=== PATIENT | male | born 1945 | race Caucasian/White ===

== ENCOUNTER 2017-04-17 18:50 | Inpatient (IN) | payer OTHER ==
[2017-04-16] MEDS: IV NORMAL SALINE 1000ML BAG 1,000 ML IV SCH (22:30)
[~2017-04-17] VITALS: Ht 182.9 cm; Wt 53.2 kg
[~2017-04-17 18:50] MED LIST: EPINEPHrine SYRINGE 1 MG/10 ML SYRINGE ONE
[2017-04-17] MEDS ORDERED: HEPARIN for IV BOLUS 10,000 UNIT/10 ML VIAL. ONE ×2 (19:03→20:16)
[2017-04-17] MEDS ORDERED: IV NORMAL SALINE 1000ML BAG 1,000 ML IV SCH (19:07)
[2017-04-17] MEDS ORDERED: ETOMIDATE 20 MG/10 ML VIAL. IV ONE ×2 (19:15→20:30)
[2017-04-17] MEDS ORDERED: MIDAZOLAM PREMIX 100 ML IV ONE (19:15)
[2017-04-17] MEDS ORDERED: HEPARIN for IV BOLUS 10,000 UNIT/10 ML VIAL. IV ONE ×2 (19:15→21:00)
[2017-04-17] MEDS ORDERED: SUCCINYLCHOLINE 200 MG/10 ML VIAL. ONE (19:16)
[2017-04-17 19:21] LABS: BASO # 0.1 x10^3/uL (0.0-0.2); BASO % 1 % (0-3); EOS % 3 % (0-3); HEMATOCRIT 49.3 % (39.0-53.0); HEMOGLOBIN 16.6 g/dL (13.0-17.5); LYMPH # 5.3 x10^3/uL (1.0-4.8); LYMPH % 33 % (24-48); MEAN CORPUSCULAR HEMOGLOBIN 36 pg (25-35); MEAN CORPUSCULAR HGB CONC 34 g/dL (31-37); MEAN CORPUSCULAR VOLUME 106 fL (79-100); MONO % 6 % (0-9); NEUT % 58 % (31-73); PLATELET COUNT 186 x10^3/uL (140-400); RED BLOOD COUNT 4.67 x10^6/uL (4.30-5.70); RED CELL DISTRIBUTION WIDTH 14.1 % (11.5-14.5); WHITE BLOOD COUNT 16.3 x10^3/uL (4.0-11.0)
[2017-04-17 19:22] LABS: BILIRUBIN,URINE NEGATIVE (NEG); GLUCOSE,URINE NEGATIVE (NEG); NITRITE,URINE NEGATIVE (NEG); PH,URINE 6.5; PROTEIN,URINE 100 mg/dL (NEG-TRACE); UROBILINOGEN,URINE 0.2 mg/dL (0.2 mg/dL)
[2017-04-17] MEDS ORDERED: HEPARIN for ARTERIAL LINE 1,500 ML ONE (19:24)
[2017-04-17] MEDS ORDERED: LIDOCAINE 2% 20 ML VIAL. ONE (19:24)
[2017-04-17] MEDS ORDERED: IODIXANOL 320 MG/ML 100 ML VIAL. ONE (19:24)
[2017-04-17] MEDS ORDERED: ONDANSETRON PF 4 MG/2 ML VIAL. IV PRN (19:30)
[2017-04-17] MEDS ORDERED: ACETAMINOPHEN 325 MG TABLET. PO PRN (19:30)
--- NOTE | 2017-04-17 19:30 | PHYS DOC ---
Adult General Chief Complaint Chief Complaint: CPR/FULL ARREST HPI HPI Patient is a 71 year old male who presents to the emergency department by EMS after experiencing cardiac arrest. Patient was found by family at home to be unresponsive after he had just come in to the house from outside complained that he was not feeling well. The patient was attended to by his . Patient was a witnessed arrest at home and EMS was called immediately. attempted CPR prior to EMS arrival. They arrived within approximately 5 minutes to find that the patient was unresponsive. The patient was found to be in V. fib upon their arrival. The patient was shocked out of V. fib at least twice prior to arrival. EMS was able to get spontaneous pulses back in route. Upon arrival the patient remains in a coma at this time. Per Drs. order prior to arrival, patient given 100 mg of lidocaine by IV. Patient has received no other medications prior to arrival. Patient unresponsive and unable to give any history. Patient has no known medical history and does not follow with a physician. Review of Systems Review of Systems Unable to obtain from patient Current Medications Current Medications Current Medications Medications (Trade) Dose Ordered Sig/Shonda Start Time Stop Time Status Last Admin Dose Admin Heparin Sodium (Porcine) (Heparin Sodium) 10,000 unit STK-MED ONCE 04/17/17 19:03 04/17/17 19:04 DC Sodium Chloride 1,000 ml @ 1,000 mls/hr Q1H 04/17/17 19:07 04/17/17 20:06 UNV Physical Exam Physical Exam Constitutional: Unresponsive, afebrile [] HENT: Normocephalic, atraumatic, bilateral external ears normal, oropharynx dry , no oral exudates, nose normal. [] Eyes: Pupils 5 mm and sluggish, conjunctiva normal, no discharge. [] Neck: Normal range of motion, no tenderness, supple, no stridor. [] Cardiovascular: Irregular rhythm, tachycardia, no murmur [] Lungs & Thorax: Assisted ventilations, lung sounds clear to auscultation [] Abdomen: Hypoactive bowel sounds, nondistended, no masses. [] Skin: Warm, dry, no erythema, no rash. [] Extremities: No obvious deformities, thready distal pulses, no cyanosis or clubbing. [] Neurologic: Unresponsive [] Current Patient Data Lab Values Laboratory Tests Test 04/17/17 18:59 White Blood Count 16.3 x10^3/uL (4.0-11.0) H Red Blood Count 4.67 x10^6/uL (4.30-5.70) Hemoglobin 16.6 g/dL (13.0-17.5) Hematocrit 49.3 % (39.0-53.0) Mean Corpuscular Volume 106 fL (79-100) H Mean Corpuscular Hemoglobin 36 pg (25-35) H Mean Corpuscular Hemoglobin Concent 34 g/dL (31-37) Red Cell Distribution Width 14.1 % (11.5-14.5) Platelet Count 186 x10^3/uL (140-400) Neutrophils (%) (Auto) 58 % (31-73) Lymphocytes (%) (Auto) 33 % (24-48) Monocytes (%) (Auto) 6 % (0-9) Eosinophils (%) (Auto) 3 % (0-3) Basophils (%) (Auto) 1 % (0-3) Neutrophils # (Auto) 9.4 x10^3uL (1.8-7.7) H Lymphocytes # (Auto) 5.3 x10^3/uL (1.0-4.8) H Monocytes # (Auto) 1.0 x10^3/uL (0.0-1.1) Eosinophils # (Auto) 0.5 x10^3/uL (0.0-0.7) Basophils # (Auto) 0.1 x10^3/uL (0.0-0.2) Sodium Level 136 mmol/L (136-145) Potassium Level 3.3 mmol/L (3.5-5.1) L Chloride Level 99 mmol/L (98-107) Carbon Dioxide Level 15 mmol/L (21-32) L Anion Gap 22 (6-14) H Blood Urea Nitrogen 9 mg/dL (8-26) Creatinine 0.7 mg/dL (0.7-1.3) Estimated GFR (Cockcroft-Gault) 111.8 Glucose Level 137 mg/dL (70-99) H Calcium Level 8.6 mg/dL (8.5-10.1) Magnesium Level 2.2 mg/dL (1.8-2.4) Total Bilirubin 0.6 mg/dL (0.2-1.0) Direct Bilirubin 0.2 mg/dL (0.0-0.2) Aspartate Amino Transferase (AST) 72 U/L (15-37) H Alanine Aminotransferase (ALT) 50 U/L (16-63) Alkaline Phosphatase 78 U/L (46-116) Troponin I Quantitative 0.176 ng/mL (0.000-0.055) Total Protein 6.9 g/dL (6.4-8.2) Albumin 3.4 g/dL (3.4-5.0) Lipase 112 U/L (73-393) Laboratory Tests 04/17/17 18:59 Laboratory Tests 04/17/17 18:59 EKG EKG EKG #1 at 185 interpreted by me: Heart rate 110 bpm, sinus tachycardia, normal axis, ST elevations in the inferior leads with reciprocal ST depressions in the lateral leads and in V2 through V4 consistent with acute STEMI EKG #2 at 190 interpreted by me: Heart rate 102, atrial fibrillation, worsening ST elevations in the inferior leads and worsening ST depressions in the lateral leads and in V2 through V4 consistent with acute STEMI [] Radiology/Procedures Radiology/Procedures AP chest x-ray 1 view interpreted by me: No pulmonary infiltrates or effusions, ET tube in satisfactory position above the radha, normal cardiac silhouette [] Course & Med Decision Making Course & Med Decision Making Pertinent Labs and Imaging studies reviewed. (See chart for details) Patient was activated as a code STEMI at 1854. Upon receiving the patient in the emergency department today, IV access was obtained and patient was intubated as outlined in the procedure note. Patient was started on a lidocaine drip and was given 4000 units of IV heparin. Patient started on Versed for continued sedation. At 1934 the patient was evaluated by Dr. Valdivia. He requested that the patient be started on dopamine to improve blood pressure and stated he would reevaluate once blood pressures improved. At 1945, the patient' s blood pressure had improved above [address] Valdivia ordered that patient be transferred emergently to cardiac catheterization lab for emergent PCAI. Critical care time excluding procedures: 45 minutes Dragon Disclaimer Dragon Disclaimer This electronic medical record was generated, in whole or in part, using a voice recognition dictation system. Intubation Procedure Intub Indication: Respiratory failure Consent: Unable to give consent due to emergent nature. Medications Used: see nursing note Procedure: The patient was placed in the appropriate position. Intubation was performed under direct laryngoscopy with placement of a 7.5 endotracheal tube. Secured at 22 cm at the lip. Initial confirmation of placement included bilateral breath sounds, tube fogging, adequate chest rise, adequate pulse oximetry reading. A chest x-ray to verify correct placement of the tube showed appropriate tube position. The patient tolerated the procedure well. Complications: none. Departure Departure Impression: Primary Impression: STEMI (ST elevation myocardial infarction) Disposition: 09 ADMITTED INPATIENT Admitting Physician: Dolores Alvarez Condition: CRITICAL Problem Qualifiers Primary Impression: STEMI (ST elevation myocardial infarction) Involved coronary artery: right coronary artery Qualified Codes: I21.11 - ST elevation (STEMI) myocardial infarction involving right coronary artery STANLEY GAYTAN MD Apr 17, 2017 19:30
[2017-04-17 19:36] LABS: CALCIUM 8.6 mg/dL (8.5-10.1); CREATININE 0.7 mg/dL (0.7-1.3); GFR 111.8; POTASSIUM 3.3 mmol/L (3.5-5.1)
[2017-04-17 19:38] LABS: BACTERIA,URINE 0 /HPF (0-FEW); SQUAMOUS EPITHELIAL CELL,UR OCC /LPF; WBC,URINE 0 /HPF (0-4)
[2017-04-17 19:39] LABS: SPERM,URINE PRESENT /HPF
[2017-04-17 19:41] LABS: ALBUMIN 3.4 g/dL (3.4-5.0); DIRECT BILIRUBIN 0.2 mg/dL (0.0-0.2); MAGNESIUM 2.2 mg/dL (1.8-2.4); TOTAL BILIRUBIN 0.6 mg/dL (0.2-1.0); TOTAL PROTEIN 6.9 g/dL (6.4-8.2)
[2017-04-17 19:50] LABS: CKMB MASS 1.5 ng/mL (0.0-3.6)
[2017-04-17] MEDS ORDERED: TIROFIBAN 12.5MG -0.9% NS 0 ML IV ONE (20:16)
[2017-04-17] MEDS ORDERED: LIDOCAINE 2GM/500ML PREMIX 500 ML IV ONE (20:30)
[2017-04-17] MEDS ORDERED: SUCCINYLCHOLINE 200 MG/10 ML VIAL. IV ONE (20:30)
--- NOTE | 2017-04-17 20:40 | PDOC1 ---
History and Physical Date of Admission Date of Admission 04/17/17 Identification/Chief Complaint Chief Complaint post code Problems: Source Source: Chart review History of Present Illness History of Present Illness 71yo M, who was sent by EMS post cardiac arrest. pt is currently intubated in ER, all history comes from ERP. as per ERP dr. Thacker, Patient was found by family at home to be unresponsive after he had just come in to the house from outside complained that he was not feeling well. The patient was attended to by his . Patient was a witnessed arrest at home and EMS was called immediately. attempted CPR prior to EMS arrival. They arrived within approximately 5 minutes to find that the patient was unresponsive. The patient was found to be in V. fib upon their arrival. The patient was shocked out of V. fib at least twice prior to arrival. EMS was able to get spontaneous pulses back in route. total code time was about 15mins as per ERP. Upon arrival the patient remains in a coma at this time. Per Drs. order prior to arrival, patient given 100 mg of lidocaine by IV. Patient has received no other medications prior to arrival. Patient unresponsive and unable to give any history. Patient has no known medical history and does not follow with a physician. Past Medical History Past Medical History unknown Past Surgical History Past Surgical History unknown Family History Family History: Family History Unknown Social History Smoke: No ALCOHOL: none Drugs: None Current Problem List Problem List Problems Medical Problems: (1) STEMI (ST elevation myocardial infarction) Status: Acute Current Medications Current Medications Current Medications Medications (Trade) Dose Ordered Sig/Shonda Start Time Stop Time Status Last Admin Dose Admin Acetaminophen (Tylenol) 650 mg PRN Q4HRS PRN 04/17/17 19:30 04/18/17 19:29 Dopamine HCl/ Dextrose 250 ml @ As Directed STK-MED ONCE 04/17/17 19:30 04/17/17 19:31 DC Etomidate (Amidate) 20 mg STK-MED ONCE 04/17/17 19:15 04/17/17 19:16 DC Heparin Sodium (Porcine) (Heparin Sodium) 10,000 unit STK-MED ONCE 04/17/17 20:16 04/17/17 20:17 DC Heparin Sodium/ Sodium Chloride 1,500 ml @ As Directed STK-MED ONCE 04/17/17 19:24 04/17/17 19:25 DC Iodixanol (Visipaque 320) 100 ml STK-MED ONCE 04/17/17 19:24 04/17/17 19:25 DC Lidocaine HCl 20 ml STK-MED ONCE 04/17/17 19:24 04/17/17 19:25 DC Midazolam HCl 100 ml @ As Directed STK-MED ONCE 04/17/17 19:15 04/17/17 19:16 DC Ondansetron HCl (Zofran) 4 mg PRN Q8HRS PRN 04/17/17 19:30 04/18/17 19:29 Sodium Chloride 1,000 ml @ 100 mls/hr Q10H 04/17/17 19:30 04/18/17 19:29 Succinylcholine Chloride (Anectine) 200 mg STK-MED ONCE 04/17/17 19:16 04/17/17 19:17 DC Tirofiban/Sodium Chloride 250 ml @ As Directed STK-MED ONCE 04/17/17 20:16 04/17/17 20:17 DC Allergies Allergies Allergies Coded Allergies Type Severity Reaction Last Updated Verified Unable to Assess 04/17/17 No ROS Review of System CONSTITUTIONAL: No fever or chills EYES: No recent changes SKIN: No rash or itching CARDIOVASCULAR: No chest pain, syncope, palpitations, or edema RESPIRATORY: No SOB or cough GASTROINTESTINAL: No nausea, vomiting or abdominal pain NEUROLOGICAL: No headaches or weakness ENDOCRINE: No cold or heat intolerance GENITOURINARY: No urgency or frequency of urination MUSCULOSKELETAL: No back pain or joint pain LYMPHATICS: No enlarged lymph nodes PSYCHIATRIC: No anxiety or depression Physical Exam Physical Exam GEN.: intubated HEENT: Head is normocephalic, atraumatic NECK: Supple. LUNGS: Clear to auscultation. HEART: RRR, S1, S2 present. Peripheral pulses intact ABDOMEN: Soft, nontender. Positive bowel sounds. EXTREMITIES: Without any cyanosis. NEUROLOGIC: Normal speech, normal tone PSYCHIATRIC: Normal affect, normal mood. SKIN: No ulcerations Vitals Vitals Vital Signs Date Time Temp Pulse Resp B/P (MAP) Pulse Ox O2 Delivery O2 Flow Rate FiO2 04/17/17 19:40 93 20 100/52 (68) 100 Ventilator 04/17/17 19:15 96.4 96.4 04/17/17 19:00 15.0 Labs Labs Laboratory Tests Test 04/17/17 18:59 04/17/17 19:14 White Blood Count 16.3 x10^3/uL (4.0-11.0) Red Blood Count 4.67 x10^6/uL (4.30-5.70) Hemoglobin 16.6 g/dL (13.0-17.5) Hematocrit 49.3 % (39.0-53.0) Mean Corpuscular Volume 106 fL (79-100) Mean Corpuscular Hemoglobin 36 pg (25-35) Mean Corpuscular Hemoglobin Concent 34 g/dL (31-37) Red Cell Distribution Width 14.1 % (11.5-14.5) Platelet Count 186 x10^3/uL (140-400) Neutrophils (%) (Auto) 58 % (31-73) Lymphocytes (%) (Auto) 33 % (24-48) Monocytes (%) (Auto) 6 % (0-9) Eosinophils (%) (Auto) 3 % (0-3) Basophils (%) (Auto) 1 % (0-3) Neutrophils # (Auto) 9.4 x10^3uL (1.8-7.7) Lymphocytes # (Auto) 5.3 x10^3/uL (1.0-4.8) Monocytes # (Auto) 1.0 x10^3/uL (0.0-1.1) Eosinophils # (Auto) 0.5 x10^3/uL (0.0-0.7) Basophils # (Auto) 0.1 x10^3/uL (0.0-0.2) Sodium Level 136 mmol/L (136-145) Potassium Level 3.3 mmol/L (3.5-5.1) Chloride Level 99 mmol/L (98-107) Carbon Dioxide Level 15 mmol/L (21-32) Anion Gap 22 (6-14) Blood Urea Nitrogen 9 mg/dL (8-26) Creatinine 0.7 mg/dL (0.7-1.3) Estimated GFR (Cockcroft-Gault) 111.8 Glucose Level 137 mg/dL (70-99) Calcium Level 8.6 mg/dL (8.5-10.1) Magnesium Level 2.2 mg/dL (1.8-2.4) Total Bilirubin 0.6 mg/dL (0.2-1.0) Direct Bilirubin 0.2 mg/dL (0.0-0.2) Aspartate Amino Transf (AST/SGOT) 72 U/L (15-37) Alanine Aminotransferase (ALT/SGPT) 50 U/L (16-63) Alkaline Phosphatase 78 U/L (46-116) Creatine Kinase 94 U/L (39-308) Creatine Kinase MB (Mass) 1.5 ng/mL (0.0-3.6) Creatine Kinase MB Relative Index 1.6 % (0-4) Troponin I Quantitative 0.176 ng/mL (0.000-0.055) IA-Wyp-J-Type Natriuretic Peptide 679 pg/mL (0-124) Total Protein 6.9 g/dL (6.4-8.2) Albumin 3.4 g/dL (3.4-5.0) Lipase 112 U/L (73-393) Urine Color Yellow Urine Clarity Clear Urine pH 6.5 Urine Specific [place] <=1.005 Urine Protein 100 mg/dL (NEG-TRACE) Urine Glucose (UA) Negative mg/dL (NEG) Urine Ketones (Stick) Negative mg/dL (NEG) Urine Blood Trace (NEG) Urine Nitrite Negative (NEG) Urine Bilirubin Negative (NEG) Urine Urobilinogen Dipstick 0.2 mg/dL (0.2 mg/dL) Urine Leukocyte Esterase Negative (NEG) Urine RBC 1-2 /HPF (0-2) Urine WBC 0 /HPF (0-4) Urine Squamous Epithelial Cells Occ /LPF Urine Bacteria 0 /HPF (0-FEW) Urine Sperm Present /HPF Laboratory Tests Test 04/17/17 18:59 04/17/17 19:14 White Blood Count 16.3 x10^3/uL (4.0-11.0) Red Blood Count 4.67 x10^6/uL (4.30-5.70) Hemoglobin 16.6 g/dL (13.0-17.5) Hematocrit 49.3 % (39.0-53.0) Mean Corpuscular Volume 106 fL (79-100) Mean Corpuscular Hemoglobin 36 pg (25-35) Mean Corpuscular Hemoglobin Concent 34 g/dL (31-37) Red Cell Distribution Width 14.1 % (11.5-14.5) Platelet Count 186 x10^3/uL (140-400) Neutrophils (%) (Auto) 58 % (31-73) Lymphocytes (%) (Auto) 33 % (24-48) Monocytes (%) (Auto) 6 % (0-9) Eosinophils (%) (Auto) 3 % (0-3) Basophils (%) (Auto) 1 % (0-3) Neutrophils # (Auto) 9.4 x10^3uL (1.8-7.7) Lymphocytes # (Auto) 5.3 x10^3/uL (1.0-4.8) Monocytes # (Auto) 1.0 x10^3/uL (0.0-1.1) Eosinophils # (Auto) 0.5 x10^3/uL (0.0-0.7) Basophils # (Auto) 0.1 x10^3/uL (0.0-0.2) Sodium Level 136 mmol/L (136-145) Potassium Level 3.3 mmol/L (3.5-5.1) Chloride Level 99 mmol/L (98-107) Carbon Dioxide Level 15 mmol/L (21-32) Anion Gap 22 (6-14) Blood Urea Nitrogen 9 mg/dL (8-26) Creatinine 0.7 mg/dL (0.7-1.3) Estimated GFR (Cockcroft-Gault) 111.8 Glucose Level 137 mg/dL (70-99) Calcium Level 8.6 mg/dL (8.5-10.1) Magnesium Level 2.2 mg/dL (1.8-2.4) Total Bilirubin 0.6 mg/dL (0.2-1.0) Direct Bilirubin 0.2 mg/dL (0.0-0.2) Aspartate Amino Transf (AST/SGOT) 72 U/L (15-37) Alanine Aminotransferase (ALT/SGPT) 50 U/L (16-63) Alkaline Phosphatase 78 U/L (46-116) Creatine Kinase 94 U/L (39-308) Creatine Kinase MB (Mass) 1.5 ng/mL (0.0-3.6) Creatine Kinase MB Relative Index 1.6 % (0-4) Troponin I Quantitative 0.176 ng/mL (0.000-0.055) FE-[id number]-J-Type Natriuretic Peptide 679 pg/mL (0-124) Total Protein 6.9 g/dL (6.4-8.2) Albumin 3.4 g/dL (3.4-5.0) Lipase 112 U/L (73-393) Urine Color Yellow Urine Clarity Clear Urine pH 6.5 Urine Specific [place] <=1.005 Urine Protein 100 mg/dL (NEG-TRACE) Urine Glucose (UA) Negative mg/dL (NEG) Urine Ketones (Stick) Negative mg/dL (NEG) Urine Blood Trace (NEG) Urine Nitrite Negative (NEG) Urine Bilirubin Negative (NEG) Urine Urobilinogen Dipstick 0.2 mg/dL (0.2 mg/dL) Urine Leukocyte Esterase Negative (NEG) Urine RBC 1-2 /HPF (0-2) Urine WBC 0 /HPF (0-4) Urine Squamous Epithelial Cells Occ /LPF Urine Bacteria 0 /HPF (0-FEW) Urine Sperm Present /HPF VTE Prophylaxis Ordered VTE Prophylaxis Devices: Yes VTE Pharmacological Prophylaxi: Yes Assessment/Plan Assessment/Plan cardiac arrest, vifb, 2/2 acute [place] likely, with Vfib ACUTE resp failure with cardiac arrest hypokalemia shock ,cardiogenic likely leukocytosis, reactive AMS, from cardiac arrest plan: ICU care hypothermia protocol intubated, sedated, pulm consult, CXR daily keep MAP >65 , need pressors zavaleta, monitor urine output >0.5cc/kg npo ivf on lidocaine drip now SSI q6h need to get PMH AND home meds card fu , may need cath labs tmr dvt , gi ppx ROYER CAT MD Apr 17, 2017 20:40
[2017-04-17] MEDS ORDERED: HEPARIN 25,000UTS/500ML PREMIX 500 ML IV ONE (20:43)
[2017-04-17] MEDS: HEPARIN 25,000UTS/500ML PREMIX 500 ML IV PRN (20:50)
[2017-04-17] MEDS ORDERED: LIDOCAINE 2% 20 ML VIAL. IJ ONE (21:00)
[2017-04-17] MEDS ORDERED: IODIXANOL 320 MG/ML 100 ML VIAL. IART ONE (21:00)
[2017-04-17] MEDS ORDERED: MIDAZOLAM HCL/PF 5 MG/5 ML VIAL. IV ONE (21:00)
[2017-04-17 21:10] VITALS: BP 134/75
[2017-04-17 21:25] VITALS: BP 134/75
[2017-04-17] MEDS ORDERED: MINERAL OIL/PETROLATUM,WHITE OPHTH OINT 3.5GM TUBE. OU PRN (21:30)
[2017-04-17] MEDS ORDERED: fentaNYL PF VIAL 100 MCG/2 ML VIAL IV PRN (21:30)
[2017-04-17] MEDS ORDERED: HEPARIN for IV BOLUS 10,000 UNIT/10 ML VIAL. IV PRN (21:30)
[2017-04-17] MEDS ORDERED: 0.9 % SODIUM CHLORIDE 10 ML DISP.SYRIN. IV PRN (21:30)
[2017-04-17] MEDS ORDERED: HEPARIN 25,000UTS/500ML PREMIX 500 ML IV PRN (21:30)
--- NOTE | 2017-04-17 21:30 | PDOC2 ---
CONSULT Date of Consult Date of Consult DATE: 04/17/17 TIME: 21:15 Reason for Consult Reason for Consult: Cardiac arrest Referring Physician Referring Physician: Dr. Alvarez Identification/Chief Complaint Chief Complaint Loss of consciousness Problems: Source Source: Caregiver History of Present Illness Reason for Visit: The patient is a 71 year old male who collapsed at home after working outside today. His family could not find a pulse and started CPR and called paramedics. When they arrived they found the patient to be in VF and he was defibrillated. Lidocaine was started and he was transported to the ER. He was intubated in the ER and EKG changes suggested an inferior STEMI. He was treated with heparin and sedation. The patient reportedly has no history of CAD , CHF or arrhythmias. On lidocaine he has remained in sinus rhythm. Systolic BP is now 80 mmHG. Past Medical History Cardiovascular: HTN Family History Family History: Hypertension, Family History Unknown Social History No ALCOHOL: none Drugs: None Current Problem List Problem List Problems Medical Problems: (1) STEMI (ST elevation myocardial infarction) Status: Acute Current Medications Current Medications Current Medications Heparin Sodium (Porcine) (Heparin Sodium) 10,000 unit STK-MED ONCE .ROUTE ; Start 04/17/17 at 19:03; Stop 04/17/17 at 19:04; Status DC Heparin Sodium (Porcine) (Heparin Sodium) 4,000 unit 1X ONCE IV Last administered on 04/17/17 19:05; Start 04/17/17 at 19:15; Stop 04/17/17 at 19:49; Status DC Sodium Chloride 1,000 ml @ 1,000 mls/hr Q1H IV Last administered on 04/17/17 19:07; Start 04/17/17 at 19:07; Stop 04/17/17 at 20:06; Status DC Midazolam HCl 100 ml @ As Directed STK-MED ONCE IV ; Start 04/17/17 at 19:15; Stop 04/17/17 at 19:16; Status DC Etomidate (Amidate) 20 mg STK-MED ONCE IV ; Start 04/17/17 at 19:15; Stop at 19:16; Status DC Succinylcholine Chloride (Anectine) 200 mg STK-MED ONCE .ROUTE ; Start 04/17/17 at 19:16; Stop 04/17/17 at 19:17; Status DC Heparin Sodium/ Sodium Chloride 1,500 ml @ As Directed STK-MED ONCE .ROUTE ; Start 04/17/17 at 19:24; Stop 04/17/17 at 19:25; Status DC Lidocaine HCl 20 ml STK-MED ONCE .ROUTE ; Start 04/17/17 at 19:24; Stop 04/17/17 at 19:25; Status DC Iodixanol (Visipaque 320) 100 ml STK-MED ONCE .ROUTE ; Start 04/17/17 at 19:24; Stop 04/17/17 at 19:25; Status DC Dopamine HCl/ Dextrose 250 ml @ 0 mls/hr CONT PRN IV SEE I/O RECORD Last administered on 04/17/17t 19:32; Start 04/17/17 at 19:30; Stop 04/17/17 at 20:54; Status DC Dopamine HCl/ Dextrose 250 ml @ As Directed STK-MED ONCE IV ; Start 04/17/17 at 19:30; Stop 04/17/17 at 19:31; Status DC Ondansetron HCl (Zofran) 4 mg PRN Q8HRS PRN IV NAUSEA/VOMITING; Start 04/17/17 at 19:30; Stop 04/18/17 at 19:29 Sodium Chloride 1,000 ml @ 100 mls/hr Q10H IV ; Start 04/17/17 at 19:30; Stop at 19:29 Acetaminophen (Tylenol) 650 mg PRN Q4HRS PRN PO FEVER; Start 04/17/17 at 19:30; Stop 04/18/17 at 19:29 Heparin Sodium (Porcine) (Heparin Sodium) 10,000 unit STK-MED ONCE .ROUTE ; Start 04/17/17 at 20:16; Stop 04/17/17 at 20:17; Status DC Tirofiban/Sodium Chloride 0 ml @ As Directed STK-MED ONCE IV ; Start 04/17/17 at 20:16; Stop 04/17/17 at 20:17; Status DC Famotidine (Pepcid) 20 mg QHS IVP ; Start 04/17/17 at 21:00 Etomidate (Amidate) 20 mg 1X ONCE IV Last administered on 04/17/17t 19:00; Start 04/17/17 at 20:30; Stop 04/17/17 at 21:05; Status DC Succinylcholine Chloride (Anectine) 100 mg 1X ONCE IV Last administered on 04/17 19:00; Start 04/17/17 at 20:30; Stop 04/17/17 at 21:07; Status DC Lidocaine HCl/ Dextrose 500 ml @ 0 mls/hr 1X ONCE IV Last administered on 18:55; Start 04/17/17 at 20:30; Stop 04/17/17 at 21:08; Status DC Dopamine HCl/ Dextrose 250 ml @ 0 mls/hr CONT PRN IV SEE I/O RECORD; Start 04/17 at 20:30 Heparin Sodium/ Dextrose 500 ml @ As Directed STK-MED ONCE IV ; Start 04/17/17 at 20:43; Stop 04/17/17 at 20:44; Status DC Heparin Sodium/ Dextrose 500 ml @ 0 mls/hr CONT PRN IV SEE I/O RECORD Last administered on 04/17/17 20:50; Start 04/17/17 at 20:45 Midazolam HCl (Versed) 5 mg 1X ONCE IV Last administered on 04/17/17 19:17; Start 04/17/17 at 21:00; Stop 04/17/17 at 21:07; Status DC Heparin Sodium (Porcine) (Heparin Sodium) 2,000 unit 1X ONCE IV Last administered on 04/17/17 20:59; Start 04/17/17 at 21:00; Stop 04/17/17 at 21:06; Status DC Iodixanol (Visipaque 320) 134 ml 1X ONCE IART Last administered on 04/17/17 20 :58; Start 04/17/17 at 21:00; Stop 04/17/17 at 21:04; Status DC Lidocaine HCl 20 ml 1X ONCE IJ Last administered on 04/17/17 20:58; Start 04/17 at 21:00; Stop 04/17/17 at 21:08; Status DC Fentanyl Citrate 30 ml @ As Directed STK-MED ONCE IV ; Start 04/17/17 at 21:09; Stop 04/17/17 at 21:10; Status DC Allergies Allergies: Coded Allergies: Penicillins (Verified Allergy, Intermediate, 04/17/17) ROS Review of System Not available. Physical Exam General: Other (sedated on a ventilator.) Lungs: Other (mildly decreased breath sounds) Heart: Regular rate Abdomen: Normal bowel sounds Vitals VITALS Vital Signs Date Time Temp Pulse Resp B/P (MAP) Pulse Ox O2 Delivery O2 Flow Rate FiO2 04/17/17 19:40 93 20 100/52 (68) 100 Ventilator 04/17/17 19:15 96.4 96.4 04/17/17 19:04 15.0 Labs Labs Laboratory Tests Test 04/17/17 18:59 04/17/17 19:14 White Blood Count 16.3 x10^3/uL (4.0-11.0) Red Blood Count 4.67 x10^6/uL (4.30-5.70) Hemoglobin 16.6 g/dL (13.0-17.5) Hematocrit 49.3 % (39.0-53.0) Mean Corpuscular Volume 106 fL (79-100) Mean Corpuscular Hemoglobin 36 pg (25-35) Mean Corpuscular Hemoglobin Concent 34 g/dL (31-37) Red Cell Distribution Width 14.1 % (11.5-14.5) Platelet Count 186 x10^3/uL (140-400) Neutrophils (%) (Auto) 58 % (31-73) Lymphocytes (%) (Auto) 33 % (24-48) Monocytes (%) (Auto) 6 % (0-9) Eosinophils (%) (Auto) 3 % (0-3) Basophils (%) (Auto) 1 % (0-3) Neutrophils # (Auto) 9.4 x10^3uL (1.8-7.7) Lymphocytes # (Auto) 5.3 x10^3/uL (1.0-4.8) Monocytes # (Auto) 1.0 x10^3/uL (0.0-1.1) Eosinophils # (Auto) 0.5 x10^3/uL (0.0-0.7) Basophils # (Auto) 0.1 x10^3/uL (0.0-0.2) Sodium Level 136 mmol/L (136-145) Potassium Level 3.3 mmol/L (3.5-5.1) Chloride Level 99 mmol/L (98-107) Carbon Dioxide Level 15 mmol/L (21-32) Anion Gap 22 (6-14) Blood Urea Nitrogen 9 mg/dL (8-26) Creatinine 0.7 mg/dL (0.7-1.3) Estimated GFR (Cockcroft-Gault) 111.8 Glucose Level 137 mg/dL (70-99) Calcium Level 8.6 mg/dL (8.5-10.1) Magnesium Level 2.2 mg/dL (1.8-2.4) Total Bilirubin 0.6 mg/dL (0.2-1.0) Direct Bilirubin 0.2 mg/dL (0.0-0.2) Aspartate Amino Transf (AST/SGOT) 72 U/L (15-37) Alanine Aminotransferase (ALT/SGPT) 50 U/L (16-63) Alkaline Phosphatase 78 U/L (46-116) Creatine Kinase 94 U/L (39-308) Creatine Kinase MB (Mass) 1.5 ng/mL (0.0-3.6) Creatine Kinase MB Relative Index 1.6 % (0-4) Troponin I Quantitative 0.176 ng/mL (0.000-0.055) KM-Nxp-U-Type Natriuretic Peptide 679 pg/mL (0-124) Total Protein 6.9 g/dL (6.4-8.2) Albumin 3.4 g/dL (3.4-5.0) Lipase 112 U/L (73-393) Urine Color Yellow Urine Clarity Clear Urine pH 6.5 Urine Specific [place] <=1.005 Urine Protein 100 mg/dL (NEG-TRACE) Urine Glucose (UA) Negative mg/dL (NEG) Urine Ketones (Stick) Negative mg/dL (NEG) Urine Blood Trace (NEG) Urine Nitrite Negative (NEG) Urine Bilirubin Negative (NEG) Urine Urobilinogen Dipstick 0.2 mg/dL (0.2 mg/dL) Urine Leukocyte Esterase Negative (NEG) Urine RBC 1-2 /HPF (0-2) Urine WBC 0 /HPF (0-4) Urine Squamous Epithelial Cells Occ /LPF Urine Bacteria 0 /HPF (0-FEW) Urine Sperm Present /HPF Laboratory Tests Test 04/17/17 18:59 04/17/17 19:14 White Blood Count 16.3 x10^3/uL (4.0-11.0) Red Blood Count 4.67 x10^6/uL (4.30-5.70) Hemoglobin 16.6 g/dL (13.0-17.5) Hematocrit 49.3 % (39.0-53.0) Mean Corpuscular Volume 106 fL (79-100) Mean Corpuscular Hemoglobin 36 pg (25-35) Mean Corpuscular Hemoglobin Concent 34 g/dL (31-37) Red Cell Distribution Width 14.1 % (11.5-14.5) Platelet Count 186 x10^3/uL (140-400) Neutrophils (%) (Auto) 58 % (31-73) Lymphocytes (%) (Auto) 33 % (24-48) Monocytes (%) (Auto) 6 % (0-9) Eosinophils (%) (Auto) 3 % (0-3) Basophils (%) (Auto) 1 % (0-3) Neutrophils # (Auto) 9.4 x10^3uL (1.8-7.7) Lymphocytes # (Auto) 5.3 x10^3/uL (1.0-4.8) Monocytes # (Auto) 1.0 x10^3/uL (0.0-1.1) Eosinophils # (Auto) 0.5 x10^3/uL (0.0-0.7) Basophils # (Auto) 0.1 x10^3/uL (0.0-0.2) Sodium Level 136 mmol/L (136-145) Potassium Level 3.3 mmol/L (3.5-5.1) Chloride Level 99 mmol/L (98-107) Carbon Dioxide Level 15 mmol/L (21-32) Anion Gap 22 (6-14) Blood Urea Nitrogen 9 mg/dL (8-26) Creatinine 0.7 mg/dL (0.7-1.3) Estimated GFR (Cockcroft-Gault) 111.8 Glucose Level 137 mg/dL (70-99) Calcium Level 8.6 mg/dL (8.5-10.1) Magnesium Level 2.2 mg/dL (1.8-2.4) Total Bilirubin 0.6 mg/dL (0.2-1.0) Direct Bilirubin 0.2 mg/dL (0.0-0.2) Aspartate Amino Transf (AST/SGOT) 72 U/L (15-37) Alanine Aminotransferase (ALT/SGPT) 50 U/L (16-63) Alkaline Phosphatase 78 U/L (46-116) Creatine Kinase 94 U/L (39-308) Creatine Kinase MB (Mass) 1.5 ng/mL (0.0-3.6) Creatine Kinase MB Relative Index 1.6 % (0-4) Troponin I Quantitative 0.176 ng/mL (0.000-0.055) OV-Npz-F-Type Natriuretic Peptide 679 pg/mL (0-124) Total Protein 6.9 g/dL (6.4-8.2) Albumin 3.4 g/dL (3.4-5.0) Lipase 112 U/L (73-393) Urine Color Yellow Urine Clarity Clear Urine pH 6.5 Urine Specific [place] <=1.005 Urine Protein 100 mg/dL (NEG-TRACE) Urine Glucose (UA) Negative mg/dL (NEG) Urine Ketones (Stick) Negative mg/dL (NEG) Urine Blood Trace (NEG) Urine Nitrite Negative (NEG) Urine Bilirubin Negative (NEG) Urine Urobilinogen Dipstick 0.2 mg/dL (0.2 mg/dL) Urine Leukocyte Esterase Negative (NEG) Urine RBC 1-2 /HPF (0-2) Urine WBC 0 /HPF (0-4) Urine Squamous Epithelial Cells Occ /LPF Urine Bacteria 0 /HPF (0-FEW) Urine Sperm Present /HPF Assessment/Plan Assessment/Plan 1. Cardiac arrest. VF. Defibrillated in the field after approximately 10 minutes of CPR. On hypothermia protocol. Rhythm stable on lidocaine. 2. Respiratory failure secondary to #1. Intubated and on a ventilator. Pulmonary consult for management. 3. Probable STEMI. Inferior ST changes. Post VT code. BP improved with dopamine and now is approximately 100 mmHG. Believe cath is indicated. Risks and benefits discussed with his family and they have agreed to cath and possible revascularization. Will bring emergently to the lab. 4. Reported 60 lbs. weight loss over the past year. Will obtain old records. Thank you for allowing us to participate in the care of your patient. LOVE MARIE MD Apr 17, 2017 21:30
--- NOTE | 2017-04-17 21:35 | ACF ---
Admission Forms Criteria MYOCARDIAL INFARCTION Clinical Indications for Admission to Inpatient Care (Place 'X' for any and all applicable criteria): Admission is indicated for 1 or more of the following (1)(2)(3)(4): [X]I. Acute [place] [ ]II. Contraindications and/or Inappropriate clinical situations for Observational Care in patients with Myocardial Infarction, when ANY ONE of the following is required: [ ]a) Patient with High risk of cardiac embolism (e.g, patients with previous cardiac embolism, LVEF < 40%, age >75 and patients with prosthetic valve) 18 [ ]b) Patient with Moderate risk including DM patient, CAD and patient aged 65-75 18 [ ]c) Patient with any change in cardiac biomarker especially troponin should be managed as high risk in an inpatient setting 19 [ ]d) Physician judgement irrespective of ECG and other diagnostic findings 20 [ ]III.General contraindications and/or Inappropriate clinical situations for Observational Care in patients with Myocardial Infarction, when ANY ONE of the following is required: [ ]a) Prediction of prolongation of LOS based on ANY ONE of the following may be considered as a contraindication for observational care 2, 3, 4, 5, 6, 7, 8, 9, 10, 11 [ ]i) Age > 65 yrs. [ ]ii) Patient arriving by ambulance [ ]iii) Patient with high acuity [ ]iv) Patient requiring vital sign monitoring [ ]v) Patient on IV medication [ ]b) Systolic blood pressures greater than or equal to 180mmHg 3,12 [ ]c) Patient with altered mental status including delirium and other alteration of consciousness, (3) [ ]d) Patient whose discharge disposition will be to a shelter home or rehabilitation home should not be managed in Emergency Department Observation Unit. CMS rule requires 3 days hospital stay before such placement. 3,13 [ ]e) Patient with failure to thrive due to broad array of etiologies 3 ,16,17 [ ]f) Inability to ambulate 3,14 Extended stay beyond goal length of stay may be needed for (1)(18)(20)(24)(25): [ ]a) Hemodynamic instability, persisting symptoms after intensive medical management, or recurring severe, prolonged symptoms [ ]b) Intravascular procedural complications such as acute vessel closure, stent thrombosis, stent malposition, or vessel dissection (26)(27)(28) [ ]c) Extravascular procedural complications such as retroperitoneal hematoma , pericardial effusion, or cardiac tamponade [ ]d) Entry site complications causing bleeding, hematoma or distal ischemia and requiring ongoing monitoring, surgical repair or surgical thrombectomy. Dangerous arrhythmia [ ]e) Complicated percutaneous coronary intervention (e.g., unsuccessful percutaneous coronary intervention or percutaneous coronary intervention of non- [place] vessel) [ ]f) Urgent or emergent surgery for complications of [place] (e.g., ventricular rupture, valvular insufficiency) [ ]g) Surgical revascularization via coronary artery bypass graft [ ]h) Heart failure (e.g., pulmonary edema) [ ]i) Unstable pulmonary comorbidities, including COPD or pneumonia (31) [ ]j) Acute renal failure The original [employer] content created by [employer] has been revised. The portions of the content which have been revised are identified through the use of italic text or in bold, and [facility] has neither reviewed nor approved the modified material. All other unmodified content is copyright [facility] [employer] Please see references footnoted in the original [facility] edition 2016 Admission Criteria Met?: Yes STEVE CHU Apr 17, 2017 21:35
--- NOTE | 2017-04-17 21:36 | PDOC4 ---
Operative Note Operative Note Brief cath note. Initial AO pressure 98/58, post IABP Ao 136/78 Coronaries Left main. 45-50% lesion. LAD. Mid 95% lesion. Distal collaterals to the RCA. LCX. Proximal 80% lesion, OM1 85% lesion. RCA. Proximal chronic occlusion with distal collaterals from the RCA and LAD. No LV gram. AO root and abd. aorta without significant lesions. IABP placed from right femoral access without complications. Conclusions. 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 IABP placed with significant improvement in BP. Will consider for CABG. The patient remains on a ventilator. Discussed with the patients family. Full report to follow. LOVE MARIE MD Apr 17, 2017 21:36
[2017-04-17 21:40] VITALS: BP_SYST 118; BP_SYST 134; BP_DIAS 74; BP_DIAS 75
[2017-04-17] MEDS: IV NORMAL SALINE 1000ML BAG 1,000 ML IV SCH ×3 (21:45→23:30)
[2017-04-17] MEDS: MEPERIDINE PF 25 MG/ML VIAL. IV PRN (21:53)
[2017-04-17 22:00] VITALS: BP_SYST 109; BP_SYST 134; BP_DIAS 69; BP_DIAS 75
[2017-04-17] MEDS ORDERED: MIDAZOLAM PREMIX 100 ML IV PRN (22:00)
[2017-04-17] MEDS: FAMOTIDINE 20 MG/2 ML VIAL IVP SCH (22:30)
[2017-04-17 22:52] LABS: HEMATOCRIT 50.9 % (39.0-53.0); HEMOGLOBIN 17.3 g/dL (13.0-17.5); RED BLOOD COUNT 4.84 x10^6/uL (4.30-5.70); RED CELL DISTRIBUTION WIDTH 14.7 % (11.5-14.5); WHITE BLOOD COUNT 21.3 x10^3/uL (4.0-11.0)
[2017-04-17 23:00] VITALS: BP_SYST 121; BP_SYST 134; BP_DIAS 75; BP_DIAS 76
[2017-04-17 23:02] LABS: INR 1.3 (0.8-1.1); PROTHROMBIN TIME PATIENT 15.2 SEC (11.7-14.0)
[2017-04-17 23:11] LABS: CORRECTED PCO2 ABG 48 mmHg; CORRECTED PH ABG 7.18; CORRECTED PO2 ABG 137 mmHg; HCO3 ABG 19 mmol/L (21-28); PCO2 ABG 57 mmHg (35-46); PO2 ABG 157 mmHg (65-108); SAT O2 ABG 98 % (92-99)
[2017-04-17 23:22] LABS: PH ABG 7.13 (7.35-7.45)
[2017-04-17 23:25] LABS: PARTIAL THROMBOPLASTIN TIME > 150 SEC (24-38)
[2017-04-18] VITALS (26 sets, daily range): BP systolic 111–158; BP diastolic 41–79
[2017-04-18] MEDS ORDERED: SODIUM BICARB ADULT 8.4% 50 MEQ/50 ML DISP.SYRIN. IV ONE
--- NOTE | 2017-04-18 01:11 | EKG ---
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
[2017-04-18] MEDS: VECURONIUM BOLUS 10 MG VIAL. IV PRN ×3 (02:00→16:00)
[2017-04-18] MEDS: IV NORMAL SALINE 1000ML BAG 1,000 ML IV SCH ×4 (02:05→12:35)
[2017-04-18] MEDS: MEPERIDINE PF 25 MG/ML VIAL. IV PRN (04:17)
[2017-04-18 05:31] LABS: BASO # 0.1 x10^3/uL (0.0-0.2); BASO % 0 % (0-3); EOS % 0 % (0-3); HEMATOCRIT 51.6 % (39.0-53.0); HEMOGLOBIN 17.3 g/dL (13.0-17.5); LYMPH # 1.5 x10^3/uL (1.0-4.8); LYMPH % 7 % (24-48); MEAN CORPUSCULAR HEMOGLOBIN 35 pg (25-35); MEAN CORPUSCULAR HGB CONC 34 g/dL (31-37); MEAN CORPUSCULAR VOLUME 104 fL (79-100); MONO % 6 % (0-9); NEUT % 86 % (31-73); PLATELET COUNT 169 x10^3/uL (140-400); RED BLOOD COUNT 4.98 x10^6/uL (4.30-5.70); RED CELL DISTRIBUTION WIDTH 13.9 % (11.5-14.5); WHITE BLOOD COUNT 20.9 x10^3/uL (4.0-11.0)
[2017-04-18 05:42] LABS: INR 1.2 (0.8-1.1); PROTHROMBIN TIME PATIENT 14.3 SEC (11.7-14.0)
[2017-04-18] MEDS ORDERED: No home meds (05:43)
[2017-04-18 05:45] LABS: CALCIUM 6.8 mg/dL (8.5-10.1); CREATININE 0.4 mg/dL (0.7-1.3); GFR 213.3; MAGNESIUM 1.8 mg/dL (1.8-2.4); PHOSPHORUS 2.5 mg/dL (2.6-4.7); POTASSIUM 3.3 mmol/L (3.5-5.1)
[2017-04-18 05:58] LABS: PARTIAL THROMBOPLASTIN TIME > 150 SEC (24-38)
[2017-04-18] MEDS: ACETAMINOPHEN 650 MG/20.3 ML SOLUTION. NG SCH ×4 (06:00→18:00)
--- NOTE | 2017-04-18 06:38 | EKG ---
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
--- NOTE | 2017-04-18 06:40 | EKG ---
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
[2017-04-18] MEDS: PROPOFOL 100 ML IV PRN ×2 (07:51→17:08)
[2017-04-18 07:52] LABS: BILIRUBIN,URINE NEGATIVE (NEG); GLUCOSE,URINE NEGATIVE (NEG); NITRITE,URINE NEGATIVE (NEG); PH,URINE 7.5; PROTEIN,URINE NEGATIVE (NEG-TRACE); UROBILINOGEN,URINE 0.2 mg/dL (0.2 mg/dL)
--- NOTE | 2017-04-18 07:59 | RAD ---
Indication respiratory failure. A single view of the chest was obtained. No prior imaging is available. The heart and pulmonary vessels appear normal. The lungs are clear of acute infiltrates. Significant pleural fluid is not seen. There is no pneumothorax. A nasogastric tube has its tip in the mid body of the stomach. An endotracheal tube is appropriately positioned above the ardha. IMPRESSION no acute or focal process seen in the chest. Appropriately positioned nasogastric and endotracheal tubes
[2017-04-18] MEDS ORDERED: AMIODARONE 900 MG in IV DEXTROSE 5% 500 ML IV ONE (08:00)
[2017-04-18 08:16] LABS: WBC,URINE 0 /HPF (0-4)
[2017-04-18 08:17] LABS: BACTERIA,URINE 0 /HPF (0-FEW)
[2017-04-18 08:31] LABS: BODY TEMP ABG 86.2 DEG; CORRECTED PCO2 ABG 18 mmHg; CORRECTED PH ABG 7.61; CORRECTED PO2 ABG 364 mmHg; HCO3 ABG 18 mmol/L (21-28); PCO2 ABG 24 mmHg (35-46); PH ABG 7.51 (7.35-7.45); PO2 ABG 401 mmHg (65-108); SAT O2 ABG 99 % (92-99)
[2017-04-18 08:32] LABS: FIO2 ABG 100
[2017-04-18 08:32] LABS: DIRECT BILIRUBIN 0.2 mg/dL (0.0-0.2); TOTAL BILIRUBIN 0.7 mg/dL (0.2-1.0); TOTAL PROTEIN 6.5 g/dL (6.4-8.2)
[2017-04-18 08:33] LABS: CALCIUM 7.4 mg/dL (8.5-10.1); CREATININE 0.4 mg/dL (0.7-1.3); GFR 213.3; MAGNESIUM 1.8 mg/dL (1.8-2.4); PHOSPHORUS 1.7 mg/dL (2.6-4.7)
[2017-04-18 08:39] LABS: POTASSIUM 2.8 mmol/L (3.5-5.1)
--- NOTE | 2017-04-18 08:43 | RAD ---
Indication respiratory failure. A single view of the chest was obtained and is compared to a study one day earlier. Endotracheal tube is appropriately positioned above the radha. Nasogastric tube is noted. A sidehole is in the area of the GE junction. Advancement of the tube should be considered. Intra-arterial balloon pump is additionally noted. The heart and pulmonary vessels are within normal limits. There is volume loss, most compatible with atelectasis, in the left lower lobe. There may be a tiny left pleural effusion. IMPRESSION: Appropriately positioned endotracheal tube. Advancement of the nasogastric tube should be considered.. Balloon pump noted. Volume loss, probably reflecting atelectasis, in the left lower lobe. Suspect small left pleural effusion
[2017-04-18] MEDS ORDERED: PNEUMOCOCCAL VAX SCREEN BY RX. MC PRN (08:45)
[2017-04-18] MEDS: ASPIRIN 300 MG SUPP.RECT PR SCH (09:00)
--- NOTE | 2017-04-18 09:22 | CARD ---
APPROVED REPORT EXAM: Two-dimensional and M-mode echocardiogram with Doppler and color Doppler. Other Information Quality : Good INDICATION Post Cardiac Arrest 2D DIMENSIONS RVDd2.9 (2.9-3.5cm)Left Atrium(2D)3.2 (1.6-4.0cm) IVSd1.1 (0.7-1.1cm)Aortic Root(2D)3.2 (2.0-3.7cm) LVDd4.4 (3.9-5.9cm)LVOT Diameter2.2 (1.8-2.4cm) PWd1.1 (0.7-1.1cm)LVDs3.9 (2.5-4.0cm) FS (%) 10.7 %SV20.7 ml LVEF(%)23.4 (>50%) Aortic Valve AoV Peak Gerard.127.0cm/sAoV VTI18.9cm AO Peak GR.6.5mmHgLVOT VTI 16.64cm AO Mean GR.2mmHgAVA (VTI)3.20cm2 Mitral Valve MV E Ngqjphfk46.3cm/sMV DECEL [id number] MV A Aygtspsq22.8cm/sE/A Ratio2.7 TDI Lateral E' P. V6.31cm/sMedial E' P. V4.38cm/s E/Lateral E'12.4E/Medial E'17.9 Tricuspid Valve TR P. [id number]/sRAP [id number] TR Peak Gr.[id number] LEFT VENTRICLE The left ventricle is normal size. There is normal left ventricular wall thickness. The left ventricu lar systolic function is normal and the ejection fraction is within normal range. EF 50-55% The basal to mid inferior wall is akinetic. Otherwise, grossly normal wall motion. Tissue Doppler imaging reve als moderate left ventricular diastolic dysfunction. RIGHT VENTRICLE The right ventricle is normal size. The right ventricular systolic function is normal. ATRIA The left atrium size is normal. The right atrium size is normal. The interatrial septum is intact wit h no evidence for an atrial septal defect or patent foramen ovale as noted on 2-D or Doppler imaging. AORTIC VALVE The aortic valve is calcified and not well visualized. Doppler and Color Flow revealed no significant aortic regurgitation. There is no significant aortic valvular stenosis. MITRAL VALVE The mitral valve is normal in structure and function. There is no evidence of mitral valve prolapse. There is no mitral valve stenosis. Doppler and Color-flow revealed trace mitral regurgitation. TRICUSPID VALVE The tricuspid valve is normal in structure and function. Doppler and Color Flow revealed trace tricus pid regurgitation. There is mild pulmonary hypertension. The PA pressure was estimated at 37 mmHg. Th ere is no tricuspid valve stenosis. PULMONIC VALVE Doppler and Color Flow revealed no pulmonic valvular regurgitation. There is no pulmonic valvular citlali nosis. GREAT VESSELS The aortic root is normal in size. The ascending aorta is normal in size. The IVC is normal in size a nd collapses >50% with inspiration. PERICARDIAL EFFUSION There is no evidence of significant pericardial effusion. Critical Notification Critical Value: No <Conclusion> The left ventricular systolic function is normal and the ejection fraction is within normal range. EF 50-55% The basal to mid inferior wall is akinetic. Otherwise, grossly normal wall motion. The aortic valve is calcified and not well visualized. Doppler and Color Flow revealed trace tricuspid regurgitation. There is mild pulmonary hypertension. The PA pressure was estimated at 37 mmHg.
[2017-04-18] MEDS ORDERED: AMIODARONE 900 MG in IV DEXTROSE 5% 500 ML IV PRN (09:45)
[2017-04-18] MEDS ORDERED: POTASSIUM CHLORIDE 20MEQ 50 ML IV ONE (10:30)
[2017-04-18 10:50] LABS: PLT ESTIMATE ADEQUATE (ADEQUATE)
[2017-04-18] MEDS: POTASSIUM CHLORIDE 10MEQ 100 ML IV SCH ×2 (11:38→11:39)
[2017-04-18] MEDS: FAMOTIDINE 20 MG/2 ML VIAL IVP SCH ×3 (11:40→21:30)
[2017-04-18 12:16] LABS: CALCIUM 6.6 mg/dL (8.5-10.1); CREATININE 0.6 mg/dL (0.7-1.3); GFR 133.6; MAGNESIUM 1.6 mg/dL (1.8-2.4); PHOSPHORUS 1.7 mg/dL (2.6-4.7); POTASSIUM 3.1 mmol/L (3.5-5.1)
--- NOTE | 2017-04-18 12:22 | PDOC ---
PROGRESS NOTES Subjective Subjective The patient remains sedated on a ventilator. Objective Objective Vital Signs Date Time Temp Pulse Resp B/P (MAP) Pulse Ox O2 Delivery O2 Flow Rate FiO2 04/18/17 12:00 Mechanical Ventilator 04/18/17 11:05 100 04/18/17 11:00 84.6 52 16 140/56 (84) 84.6 04/18/17 03:29 15.0 Intake and Output 04/18/17 07:00 Intake Total 3465 ml Output Total 4125 ml Balance -660 ml Intake Oral 0 ml IV Total 3465 ml Output Urine Total 3725 ml Gastric Drainage Total 400 ml Physical Exam Abdomen: Normal bowel sounds Heart: Regular rate General: Other (sedated on a ventilator) Lungs: Other (decreased breath sounds) Assessment Assessment Problems Medical Problems: (1) STEMI (ST elevation myocardial infarction) Status: Acute Assessment/Plan 1. Cardiac arrest. VF. Defibrillated in the field after approximately 10 minutes of CPR. Patient has been started on amiodarone, round today. Rhythm has improved. Potassium being replaced as per protocol. Hypothermia protocol concluded. 2. Respiratory failure secondary to #1. Intubated and on a ventilator. Pulmonary consult for management. 3. 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 Overall good ejection fraction of 50-55% with basilar to mid inferior wall akinesis consistent with his chronically occluded right coronary artery. Intra-aortic pump functioning normally. We'll continue present treatment. The patient's condition was discussed with his family. 4. Hypokalemia. Being replaced and monitored. 5. Reported 60 lbs. weight loss over the past year. Will obtain old records. Comment Review of Relevant I have reviewed the following items erna (where applicable) has been applied. Labs Laboratory Tests Test 04/17/17 18:59 04/17/17 19:14 04/17/17 22:00 04/17/17 23:08 White Blood Count 16.3 x10^3/uL (4.0-11.0) 21.3 x10^3/uL (4.0-11.0) Red Blood Count 4.67 x10^6/uL (4.30-5.70) 4.84 x10^6/uL (4.30-5.70) Hemoglobin 16.6 g/dL (13.0-17.5) 17.3 g/dL (13.0-17.5) Hematocrit 49.3 % (39.0-53.0) 50.9 % (39.0-53.0) Mean Corpuscular Volume 106 fL (79-100) 105 fL (79-100) Mean Corpuscular Hemoglobin 36 pg (25-35) 36 pg (25-35) Mean Corpuscular Hemoglobin Concent 34 g/dL (31-37) 34 g/dL (31-37) Red Cell Distribution Width 14.1 % (11.5-14.5) 14.7 % (11.5-14.5) Platelet Count 186 x10^3/uL (140-400) 208 x10^3/uL (140-400) Neutrophils (%) (Auto) 58 % (31-73) Lymphocytes (%) (Auto) 33 % (24-48) Monocytes (%) (Auto) 6 % (0-9) Eosinophils (%) (Auto) 3 % (0-3) Basophils (%) (Auto) 1 % (0-3) Neutrophils # (Auto) 9.4 x10^3uL (1.8-7.7) Lymphocytes # (Auto) 5.3 x10^3/uL (1.0-4.8) Monocytes # (Auto) 1.0 x10^3/uL (0.0-1.1) Eosinophils # (Auto) 0.5 x10^3/uL (0.0-0.7) Basophils # (Auto) 0.1 x10^3/uL (0.0-0.2) Sodium Level 136 mmol/L (136-145) Potassium Level 3.3 mmol/L (3.5-5.1) Chloride Level 99 mmol/L (98-107) Carbon Dioxide Level 15 mmol/L (21-32) Anion Gap 22 (6-14) Blood Urea Nitrogen 9 mg/dL (8-26) Creatinine 0.7 mg/dL (0.7-1.3) Estimated GFR (Cockcroft-Gault) 111.8 Glucose Level 137 mg/dL (70-99) Calcium Level 8.6 mg/dL (8.5-10.1) Magnesium Level 2.2 mg/dL (1.8-2.4) Total Bilirubin 0.6 mg/dL (0.2-1.0) Direct Bilirubin 0.2 mg/dL (0.0-0.2) Aspartate Amino Transf (AST/SGOT) 72 U/L (15-37) Alanine Aminotransferase (ALT/SGPT) 50 U/L (16-63) Alkaline Phosphatase 78 U/L (46-116) Creatine Kinase 94 U/L (39-308) 1501 U/L (39-308) Creatine Kinase MB (Mass) 1.5 ng/mL (0.0-3.6) 215.0 ng/mL (0.0-3.6) Creatine Kinase MB Relative Index 1.6 % (0-4) 14.3 % (0-4) Troponin I Quantitative 0.176 ng/mL (0.000-0.055) TH-Vow-P-Type Natriuretic Peptide 679 pg/mL (0-124) Total Protein 6.9 g/dL (6.4-8.2) Albumin 3.4 g/dL (3.4-5.0) Lipase 112 U/L (73-393) Urine Color Yellow Urine Clarity Clear Urine pH 6.5 Urine Specific [place] <=1.005 Urine Protein 100 mg/dL (NEG-TRACE) Urine Glucose (UA) Negative mg/dL (NEG) Urine Ketones (Stick) Negative mg/dL (NEG) Urine Blood Trace (NEG) Urine Nitrite Negative (NEG) Urine Bilirubin Negative (NEG) Urine Urobilinogen Dipstick 0.2 mg/dL (0.2 mg/dL) Urine Leukocyte Esterase Negative (NEG) Urine RBC 1-2 /HPF (0-2) Urine WBC 0 /HPF (0-4) Urine Squamous Epithelial Cells Occ /LPF Urine Bacteria 0 /HPF (0-FEW) Urine Sperm Present /HPF Prothrombin Time 15.2 SEC (11.7-14.0) Prothromb Time International Ratio 1.3 (0.8-1.1) Activated Partial Thromboplast Time > 150 SEC (24-38) Heparin Anti-Xa Act, Unfractionated 0.58 IU/mL (0.30-0.70) Lactic Acid Level 4.3 mmol/L (0.4-2.0) Amylase Level 472 U/L (25-115) O2 Saturation 98 % (92-99) Arterial Blood pH 7.13 (7.35-7.45) Arterial Blood pH (Temp corrected) 7.18 Arterial Blood pCO2 at Patient Temp 57 mmHg (35-46) Arterial Blood pCO2 (Temp correct) 48 mmHg Arterial Blood pO2 at Patient Temp 157 mmHg (65-108) Arterial Blood pO2 (Temp corrected) 137 mmHg Arterial Blood HCO3 19 mmol/L (21-28) Arterial Blood Base Excess -11 mmol/L (-3-3) Test 04/17/17 23:39 04/18/17 02:25 04/18/17 02:35 04/18/17 06:30 Glucose (Fingerstick) 138 mg/dL (70-99) White Blood Count 20.9 x10^3/uL (4.0-11.0) Red Blood Count 4.98 x10^6/uL (4.30-5.70) Hemoglobin 17.3 g/dL (13.0-17.5) Hematocrit 51.6 % (39.0-53.0) Mean Corpuscular Volume 104 fL (79-100) Mean Corpuscular Hemoglobin 35 pg (25-35) Mean Corpuscular Hemoglobin Concent 34 g/dL (31-37) Red Cell Distribution Width 13.9 % (11.5-14.5) Platelet Count 169 x10^3/uL (140-400) Neutrophils (%) (Auto) 86 % (31-73) Lymphocytes (%) (Auto) 7 % (24-48) Monocytes (%) (Auto) 6 % (0-9) Eosinophils (%) (Auto) 0 % (0-3) Basophils (%) (Auto) 0 % (0-3) Neutrophils # (Auto) 17.9 x10^3uL (1.8-7.7) Lymphocytes # (Auto) 1.5 x10^3/uL (1.0-4.8) Monocytes # (Auto) 1.3 x10^3/uL (0.0-1.1) Eosinophils # (Auto) 0.0 x10^3/uL (0.0-0.7) Basophils # (Auto) 0.1 x10^3/uL (0.0-0.2) Segmented Neutrophils % 75 % (35-66) Band Neutrophils % 9 % (0-9) Lymphocytes % 11 % (24-48) Monocytes % 5 % (0-10) Platelet Estimate Adequate (ADEQUATE) Macrocytosis Present Prothrombin Time 14.3 SEC (11.7-14.0) Prothromb Time International Ratio 1.2 (0.8-1.1) Activated Partial Thromboplast Time > 150 SEC (24-38) Sodium Level 142 mmol/L (136-145) Potassium Level 3.3 mmol/L (3.5-5.1) Chloride Level 106 mmol/L (98-107) Carbon Dioxide Level 26 mmol/L (21-32) Anion Gap 10 (6-14) Blood Urea Nitrogen 8 mg/dL (8-26) Creatinine 0.4 mg/dL (0.7-1.3) Estimated GFR (Cockcroft-Gault) 213.3 Glucose Level 111 mg/dL (70-99) Calcium Level 6.8 mg/dL (8.5-10.1) Phosphorus Level 2.5 mg/dL (2.6-4.7) Magnesium Level 1.8 mg/dL (1.8-2.4) Troponin I Quantitative 72.121 ng/mL (0.000-0.055) Lactic Acid Level 1.7 mmol/L (0.4-2.0) Urine Collection Type U cath Urine Color Yellow Urine Clarity Clear Urine pH 7.5 Urine Specific [place] <=1.005 Urine Protein Negative mg/dL (NEG-TRACE) Urine Glucose (UA) Negative mg/dL (NEG) Urine Ketones (Stick) Negative mg/dL (NEG) Urine Blood Moderate (NEG) Urine Nitrite Negative (NEG) Urine Bilirubin Negative (NEG) Urine Urobilinogen Dipstick 0.2 mg/dL (0.2 mg/dL) Urine Leukocyte Esterase Negative (NEG) Urine RBC 11-20 /HPF (0-2) Urine WBC 0 /HPF (0-4) Urine Bacteria 0 /HPF (0-FEW) Urine Mucus Slight /LPF Test 04/18/17 08:05 04/18/17 08:10 04/18/17 08:30 04/18/17 11:50 Sodium Level 140 mmol/L (136-145) 137 mmol/L (136-145) Potassium Level 2.8 mmol/L (3.5-5.1) 3.1 mmol/L (3.5-5.1) Chloride Level 105 mmol/L (98-107) 103 mmol/L (98-107) Carbon Dioxide Level 25 mmol/L (21-32) 23 mmol/L (21-32) Anion Gap 10 (6-14) 11 (6-14) Blood Urea Nitrogen 7 mg/dL (8-26) 8 mg/dL (8-26) Creatinine 0.4 mg/dL (0.7-1.3) 0.6 mg/dL (0.7-1.3) Estimated GFR (Cockcroft-Gault) 213.3 133.6 Glucose Level 130 mg/dL (70-99) 259 mg/dL (70-99) Lactic Acid Level 1.6 mmol/L (0.4-2.0) Calcium Level 7.4 mg/dL (8.5-10.1) 6.6 mg/dL (8.5-10.1) Ionized Calcium 0.90 mmol/L (1.13-1.32) Phosphorus Level 1.7 mg/dL (2.6-4.7) 1.7 mg/dL (2.6-4.7) Magnesium Level 1.8 mg/dL (1.8-2.4) 1.6 mg/dL (1.8-2.4) Total Bilirubin 0.7 mg/dL (0.2-1.0) Direct Bilirubin 0.2 mg/dL (0.0-0.2) Aspartate Amino Transf (AST/SGOT) 391 U/L (15-37) Alanine Aminotransferase (ALT/SGPT) 90 U/L (16-63) Alkaline Phosphatase 78 U/L (46-116) Total Protein 6.5 g/dL (6.4-8.2) Albumin 3.0 g/dL (3.4-5.0) Lipase 64 U/L (73-393) Heparin Anti-Xa Act, Unfractionated 0.67 IU/mL (0.30-0.70) O2 Saturation 99 % (92-99) Arterial Blood pH 7.51 (7.35-7.45) Arterial Blood pH (Temp corrected) 7.61 Arterial Blood pCO2 at Patient Temp 24 mmHg (35-46) Arterial Blood pCO2 (Temp correct) 18 mmHg Arterial Blood pO2 at Patient Temp 401 mmHg (65-108) Arterial Blood pO2 (Temp corrected) 364 mmHg Arterial Blood HCO3 18 mmol/L (21-28) Arterial Blood Base Excess -2 mmol/L (-3-3) FiO2 100 Laboratory Tests Test 04/17/17 18:59 04/17/17 19:14 04/17/17 22:00 04/17/17 23:08 White Blood Count 16.3 x10^3/uL (4.0-11.0) 21.3 x10^3/uL (4.0-11.0) Red Blood Count 4.67 x10^6/uL (4.30-5.70) 4.84 x10^6/uL (4.30-5.70) Hemoglobin 16.6 g/dL (13.0-17.5) 17.3 g/dL (13.0-17.5) Hematocrit 49.3 % (39.0-53.0) 50.9 % (39.0-53.0) Mean Corpuscular Volume 106 fL (79-100) 105 fL (79-100) Mean Corpuscular Hemoglobin 36 pg (25-35) 36 pg (25-35) Mean Corpuscular Hemoglobin Concent 34 g/dL (31-37) 34 g/dL (31-37) Red Cell Distribution Width 14.1 % (11.5-14.5) 14.7 % (11.5-14.5) Platelet Count 186 x10^3/uL (140-400) 208 x10^3/uL (140-400) Neutrophils (%) (Auto) 58 % (31-73) Lymphocytes (%) (Auto) 33 % (24-48) Monocytes (%) (Auto) 6 % (0-9) Eosinophils (%) (Auto) 3 % (0-3) Basophils (%) (Auto) 1 % (0-3) Neutrophils # (Auto) 9.4 x10^3uL (1.8-7.7) Lymphocytes # (Auto) 5.3 x10^3/uL (1.0-4.8) Monocytes # (Auto) 1.0 x10^3/uL (0.0-1.1) Eosinophils # (Auto) 0.5 x10^3/uL (0.0-0.7) Basophils # (Auto) 0.1 x10^3/uL (0.0-0.2) Sodium Level 136 mmol/L (136-145) Potassium Level 3.3 mmol/L (3.5-5.1) Chloride Level 99 mmol/L (98-107) Carbon Dioxide Level 15 mmol/L (21-32) Anion Gap 22 (6-14) Blood Urea Nitrogen 9 mg/dL (8-26) Creatinine 0.7 mg/dL (0.7-1.3) Estimated GFR (Cockcroft-Gault) 111.8 Glucose Level 137 mg/dL (70-99) Calcium Level 8.6 mg/dL (8.5-10.1) Magnesium Level 2.2 mg/dL (1.8-2.4) Total Bilirubin 0.6 mg/dL (0.2-1.0) Direct Bilirubin 0.2 mg/dL (0.0-0.2) Aspartate Amino Transf (AST/SGOT) 72 U/L (15-37) Alanine Aminotransferase (ALT/SGPT) 50 U/L (16-63) Alkaline Phosphatase 78 U/L (46-116) Creatine Kinase 94 U/L (39-308) 1501 U/L (39-308) Creatine Kinase MB (Mass) 1.5 ng/mL (0.0-3.6) 215.0 ng/mL (0.0-3.6) Creatine Kinase MB Relative Index 1.6 % (0-4) 14.3 % (0-4) Troponin I Quantitative 0.176 ng/mL (0.000-0.055) IR-Vko-X-Type Natriuretic Peptide 679 pg/mL (0-124) Total Protein 6.9 g/dL (6.4-8.2) Albumin 3.4 g/dL (3.4-5.0) Lipase 112 U/L (73-393) Urine Color Yellow Urine Clarity Clear Urine pH 6.5 Urine Specific [place] <=1.005 Urine Protein 100 mg/dL (NEG-TRACE) Urine Glucose (UA) Negative mg/dL (NEG) Urine Ketones (Stick) Negative mg/dL (NEG) Urine Blood Trace (NEG) Urine Nitrite Negative (NEG) Urine Bilirubin Negative (NEG) Urine Urobilinogen Dipstick 0.2 mg/dL (0.2 mg/dL) Urine Leukocyte Esterase Negative (NEG) Urine RBC 1-2 /HPF (0-2) Urine WBC 0 /HPF (0-4) Urine Squamous Epithelial Cells Occ /LPF Urine Bacteria 0 /HPF (0-FEW) Urine Sperm Present /HPF Prothrombin Time 15.2 SEC (11.7-14.0) Prothromb Time International Ratio 1.3 (0.8-1.1) Activated Partial Thromboplast Time > 150 SEC (24-38) Heparin Anti-Xa Act, Unfractionated 0.58 IU/mL (0.30-0.70) Lactic Acid Level 4.3 mmol/L (0.4-2.0) Amylase Level 472 U/L (25-115) O2 Saturation 98 % (92-99) Arterial Blood pH 7.13 (7.35-7.45) Arterial Blood pH (Temp corrected) 7.18 Arterial Blood pCO2 at Patient Temp 57 mmHg (35-46) Arterial Blood pCO2 (Temp correct) 48 mmHg Arterial Blood pO2 at Patient Temp 157 mmHg (65-108) Arterial Blood pO2 (Temp corrected) 137 mmHg Arterial Blood HCO3 19 mmol/L (21-28) Arterial Blood Base Excess -11 mmol/L (-3-3) Test 04/17/17 23:39 04/18/17 02:25 04/18/17 02:35 04/18/17 06:30 Glucose (Fingerstick) 138 mg/dL (70-99) White Blood Count 20.9 x10^3/uL (4.0-11.0) Red Blood Count 4.98 x10^6/uL (4.30-5.70) Hemoglobin 17.3 g/dL (13.0-17.5) Hematocrit 51.6 % (39.0-53.0) Mean Corpuscular Volume 104 fL (79-100) Mean Corpuscular Hemoglobin 35 pg (25-35) Mean Corpuscular Hemoglobin Concent 34 g/dL (31-37) Red Cell Distribution Width 13.9 % (11.5-14.5) Platelet Count 169 x10^3/uL (140-400) Neutrophils (%) (Auto) 86 % (31-73) Lymphocytes (%) (Auto) 7 % (24-48) Monocytes (%) (Auto) 6 % (0-9) Eosinophils (%) (Auto) 0 % (0-3) Basophils (%) (Auto) 0 % (0-3) Neutrophils # (Auto) 17.9 x10^3uL (1.8-7.7) Lymphocytes # (Auto) 1.5 x10^3/uL (1.0-4.8) Monocytes # (Auto) 1.3 x10^3/uL (0.0-1.1) Eosinophils # (Auto) 0.0 x10^3/uL (0.0-0.7) Basophils # (Auto) 0.1 x10^3/uL (0.0-0.2) Segmented Neutrophils % 75 % (35-66) Band Neutrophils % 9 % (0-9) Lymphocytes % 11 % (24-48) Monocytes % 5 % (0-10) Platelet Estimate Adequate (ADEQUATE) Macrocytosis Present Prothrombin Time 14.3 SEC (11.7-14.0) Prothromb Time International Ratio 1.2 (0.8-1.1) Activated Partial Thromboplast Time > 150 SEC (24-38) Sodium Level 142 mmol/L (136-145) Potassium Level 3.3 mmol/L (3.5-5.1) Chloride Level 106 mmol/L (98-107) Carbon Dioxide Level 26 mmol/L (21-32) Anion Gap 10 (6-14) Blood Urea Nitrogen 8 mg/dL (8-26) Creatinine 0.4 mg/dL (0.7-1.3) Estimated GFR (Cockcroft-Gault) 213.3 Glucose Level 111 mg/dL (70-99) Calcium Level 6.8 mg/dL (8.5-10.1) Phosphorus Level 2.5 mg/dL (2.6-4.7) Magnesium Level 1.8 mg/dL (1.8-2.4) Troponin I Quantitative 72.121 ng/mL (0.000-0.055) Lactic Acid Level 1.7 mmol/L (0.4-2.0) Urine Collection Type U cath Urine Color Yellow Urine Clarity Clear Urine pH 7.5 Urine Specific [place] <=1.005 Urine Protein Negative mg/dL (NEG-TRACE) Urine Glucose (UA) Negative mg/dL (NEG) Urine Ketones (Stick) Negative mg/dL (NEG) Urine Blood Moderate (NEG) Urine Nitrite Negative (NEG) Urine Bilirubin Negative (NEG) Urine Urobilinogen Dipstick 0.2 mg/dL (0.2 mg/dL) Urine Leukocyte Esterase Negative (NEG) Urine RBC 11-20 /HPF (0-2) Urine WBC 0 /HPF (0-4) Urine Bacteria 0 /HPF (0-FEW) Urine Mucus Slight /LPF Test 04/18/17 08:05 04/18/17 08:10 04/18/17 08:30 04/18/17 11:50 Sodium Level 140 mmol/L (136-145) 137 mmol/L (136-145) Potassium Level 2.8 mmol/L (3.5-5.1) 3.1 mmol/L (3.5-5.1) Chloride Level 105 mmol/L (98-107) 103 mmol/L (98-107) Carbon Dioxide Level 25 mmol/L (21-32) 23 mmol/L (21-32) Anion Gap 10 (6-14) 11 (6-14) Blood Urea Nitrogen 7 mg/dL (8-26) 8 mg/dL (8-26) Creatinine 0.4 mg/dL (0.7-1.3) 0.6 mg/dL (0.7-1.3) Estimated GFR (Cockcroft-Gault) 213.3 133.6 Glucose Level 130 mg/dL (70-99) 259 mg/dL (70-99) Lactic Acid Level 1.6 mmol/L (0.4-2.0) Calcium Level 7.4 mg/dL (8.5-10.1) 6.6 mg/dL (8.5-10.1) Ionized Calcium 0.90 mmol/L (1.13-1.32) Phosphorus Level 1.7 mg/dL (2.6-4.7) 1.7 mg/dL (2.6-4.7) Magnesium Level 1.8 mg/dL (1.8-2.4) 1.6 mg/dL (1.8-2.4) Total Bilirubin 0.7 mg/dL (0.2-1.0) Direct Bilirubin 0.2 mg/dL (0.0-0.2) Aspartate Amino Transf (AST/SGOT) 391 U/L (15-37) Alanine Aminotransferase (ALT/SGPT) 90 U/L (16-63) Alkaline Phosphatase 78 U/L (46-116) Total Protein 6.5 g/dL (6.4-8.2) Albumin 3.0 g/dL (3.4-5.0) Lipase 64 U/L (73-393) Heparin Anti-Xa Act, Unfractionated 0.67 IU/mL (0.30-0.70) O2 Saturation 99 % (92-99) Arterial Blood pH 7.51 (7.35-7.45) Arterial Blood pH (Temp corrected) 7.61 Arterial Blood pCO2 at Patient Temp 24 mmHg (35-46) Arterial Blood pCO2 (Temp correct) 18 mmHg Arterial Blood pO2 at Patient Temp 401 mmHg (65-108) Arterial Blood pO2 (Temp corrected) 364 mmHg Arterial Blood HCO3 18 mmol/L (21-28) Arterial Blood Base Excess -2 mmol/L (-3-3) FiO2 100 Medications Current Medications Heparin Sodium (Porcine) (Heparin Sodium) 10,000 unit STK-MED ONCE .ROUTE ; Start 04/17/17 at 19:03; Stop 04/17/17 at 19:04; Status DC Heparin Sodium (Porcine) (Heparin Sodium) 4,000 unit 1X ONCE IV Last administered on 04/17/17 19:05; Start 04/17/17 at 19:15; Stop 04/17/17 at 19:49; Status DC Sodium Chloride 1,000 ml @ 1,000 mls/hr Q1H IV Last administered on 04/17/17 19:07; Start 04/17/17 at 19:07; Stop 04/17/17 at 20:06; Status DC Midazolam HCl 100 ml @ As Directed STK-MED ONCE IV ; Start 04/17/17 at 19:15; Stop 04/17/17 at 19:16; Status DC Etomidate (Amidate) 20 mg STK-MED ONCE IV ; Start 04/17/17 at 19:15; Stop at 19:16; Status DC Succinylcholine Chloride (Anectine) 200 mg STK-MED ONCE .ROUTE ; Start 04/17/17 at 19:16; Stop 04/17/17 at 19:17; Status DC Heparin Sodium/ Sodium Chloride 1,500 ml @ As Directed STK-MED ONCE .ROUTE ; Start 04/17/17 at 19:24; Stop 04/17/17 at 19:25; Status DC Lidocaine HCl 20 ml STK-MED ONCE .ROUTE ; Start 04/17/17 at 19:24; Stop 04/17/17 at 19:25; Status DC Iodixanol (Visipaque 320) 100 ml STK-MED ONCE .ROUTE ; Start 04/17/17 at 19:24; Stop 04/17/17 at 19:25; Status DC Dopamine HCl/ Dextrose 250 ml @ 0 mls/hr CONT PRN IV SEE I/O RECORD Last administered on 04/17/17 19:32; Start 04/17/17 at 19:30; Stop 04/17/17 at 20:54; Status DC Dopamine HCl/ Dextrose 250 ml @ As Directed STK-MED ONCE IV ; Start 04/17/17 at 19:30; Stop 04/17/17 at 19:31; Status DC Ondansetron HCl (Zofran) 4 mg PRN Q8HRS PRN IV NAUSEA/VOMITING; Start 04/17/17 at 19:30; Stop 04/18/17 at 19:29 Sodium Chloride 1,000 ml @ 100 mls/hr Q10H IV Last administered on 04/18/17 06 :03; Start 04/17/17 at 19:30; Stop 04/18/17 at 19:29 Acetaminophen (Tylenol) 650 mg PRN Q4HRS PRN PO FEVER; Start 04/17/17 at 19:30; Stop 04/18/17 at 19:29 Heparin Sodium (Porcine) (Heparin Sodium) 10,000 unit STK-MED ONCE .ROUTE ; Start 04/17/17 at 20:16; Stop 04/17/17 at 20:17; Status DC Tirofiban/Sodium Chloride 0 ml @ As Directed STK-MED ONCE IV ; Start 04/17/17 at 20:16; Stop 04/17/17 at 20:17; Status DC Famotidine (Pepcid) 20 mg QHS IVP Last administered on 04/17/17 22:30; Start at 21:00 Etomidate (Amidate) 20 mg 1X ONCE IV Last administered on 04/17/17 19:00; Start 04/17/17 at 20:30; Stop 04/17/17 at 21:05; Status DC Succinylcholine Chloride (Anectine) 100 mg 1X ONCE IV Last administered on 04/17 19:00; Start 04/17/17 at 20:30; Stop 04/17/17 at 21:07; Status DC Lidocaine HCl/ Dextrose 500 ml @ 0 mls/hr 1X ONCE IV Last administered on 18:55; Start 04/17/17 at 20:30; Stop 04/17/17 at 21:08; Status DC Dopamine HCl/ Dextrose 250 ml @ 0 mls/hr CONT PRN IV SEE I/O RECORD Last administered on 04/18/17 03:31; Start 04/17/17 at 20:30 Heparin Sodium/ Dextrose 500 ml @ As Directed STK-MED ONCE IV ; Start 04/17/17 at 20:43; Stop 04/17/17 at 20:44; Status DC Heparin Sodium/ Dextrose 500 ml @ 0 mls/hr CONT PRN IV SEE I/O RECORD Last administered on 04/17/17 20:50; Start 04/17/17 at 20:45 Midazolam HCl (Versed) 5 mg 1X ONCE IV Last administered on 04/17/17 19:17; Start 04/17/17 at 21:00; Stop 04/17/17 at 21:07; Status DC Heparin Sodium (Porcine) (Heparin Sodium) 2,000 unit 1X ONCE IV Last administered on 04/17/17 20:59; Start 04/17/17 at 21:00; Stop 04/17/17 at 21:06; Status DC Iodixanol (Visipaque 320) 134 ml 1X ONCE IART Last administered on 04/17/17 20 :58; Start 04/17/17 at 21:00; Stop 04/17/17 at 21:04; Status DC Lidocaine HCl 20 ml 1X ONCE IJ Last administered on 04/17/17 20:58; Start 04/17 at 21:00; Stop 04/17/17 at 21:08; Status DC Fentanyl Citrate 30 ml @ As Directed STK-MED ONCE IV ; Start 04/17/17 at 21:09; Stop 04/17/17 at 21:10; Status DC Sodium Chloride 1,000 ml @ 1,000 mls/hr Q1H IV Last administered on 04/17/17 23:30; Start 04/17/17 at 21:30; Stop 04/18/17 at 03:42; Status DC Fentanyl Citrate (Fentanyl 2ml Vial) 25 mcg PRN Q30MIN PRN IV SED; Start at 21:30 Lorazepam (Ativan) 1 mg PRN Q30MIN PRN IV SEDATION; Start 04/17/17 at 21:30 Fentanyl Citrate 30 ml @ 2.5 mls/hr CONT PRN PRN IV IVF Last administered on 03:29; Start 04/17/17 at 21:30 Propofol 100 ml @ 0 mls/hr CONT PRN IV SEE I/O RECORD Last administered on 07:51; Start 04/17/17 at 21:30 Vecuronium [place] (Norcuron Bolus) DOSE AT 0.1 mg/kg PRN Q30MIN PRN IV SHIVERING Last administered on 04/18/17 06:04; Start 04/17/17 at 21:30 Meperidine HCl (Demerol) 12.5 mg PRN Q30MIN PRN IV SHIVERING Last administered on 04/18/17 04:17; Start 04/17/17 at 21:30; Stop 04/18/17 at 04:18; Status DC Multi-Ingred Cream/Lotion/Oil/ Oint (Artificial Tears Eye Oint) 1 balaji PRN Q6HRS PRN OU 0.5 INCH FOR DRY EYE; Start 04/17/17 at 21:30 Famotidine (Pepcid) 20 mg BID IVP Last administered on 04/18/17 11:40; Start at 09:00 Aspirin (Aspirin) 300 mg DAILY SD ; Start 04/18/17 at 09:00 Sodium Chloride (Normal Saline Flush) 3 ml QSHIFT PRN IV AFTER MEDS AND BLOOD DRAWS; Start 04/17/17 at 21:30 Acetaminophen (Tylenol) 650 mg Q6HRS NG ; Start 04/18/17 at 00:00; Stop 04/18/17 at 23:59 Acetaminophen (Acetaminophen Supp) 650 mg PRN Q6HRS PRN SD MILD PAIN / TEMP; Start 04/18/17 at 21:30 Acetaminophen (Tylenol) 650 mg PRN Q6HRS PRN NG MILD PAIN / TEMP; Start at 21:30 Info 1 ea DAILY PRN MC PER PROTOCOL; Start 04/19/17 at 21:30 Heparin Sodium/ Dextrose 500 ml @ 0 mls/hr CONT PRN IV SEE I/O RECORD; Start at 21:30 Heparin Sodium (Porcine) (Heparin Sodium) 1,450 unit PRN Q6HRS PRN IV FOR UFH LEVEL LESS THAN 0.2; Start 04/17/17 at 21:30 Sodium Chloride 1,000 ml @ 60 mls/hr [id number] IV ; Start 04/17/17 at 21:45 Midazolam HCl 100 ml @ 0 mls/hr CONT PRN IV SEE I/O RECORD; Start 04/17/17 at 22 :00 Sodium Bicarbonate 100 meq 1X ONCE IV Last administered on 04/18/17 02:02; Start 04/18/17 at 00:00; Stop 04/18/17 at 00:01; Status DC Amiodarone HCl 900 mg/Dextrose 518 ml @ 0 mls/hr 1X ONCE IV Last administered on 04/18/17 08:00; Start 04/18/17 at 08:00; Stop 04/18/17 at 08:01; Status DC Pneumococcal Polyvalent Vaccine (Do NOT chart on this placeholder) 1 each PRN DAILY PRN MC UNABLE TO RESPOND; Start 04/18/17 at 08:45 Amiodarone HCl 900 mg/Dextrose 518 ml @ 34.53 mls/ hr CONT PRN IV SEE I/O RECORD; Start 04/18/17 at 09:45 Potassium Chloride 50 ml @ 50 mls/hr 1X ONCE IV ; Start 04/18/17 at 10:30; Stop 04/18/17 at 10:30; Status DC Potassium Chloride 100 ml @ 100 mls/hr Q1H IV Last administered on 04/18/17 11 :39; Start 04/18/17 at 10:30; Stop 04/18/17 at 12:29 Active Scripts Active Reported [No home meds] Vitals/I & O Vital Sign - Last 24 Hours 04/17/17 04/17/17 04/17/17 04/17/17 18:50 18:55 19:00 19:02 Pulse 118 108 98 Resp 12 12 12 B/P (MAP) 108/61 (77) 119/78 (92) 98/59 (72) Pulse Ox 96 98 98 100 O2 Delivery Bag Valve Mask Bag Valve Mask Bag Valve Mask Ventilator O2 Flow Rate 15.0 15.0 15.0 04/17/17 04/17/17 04/17/17 04/17/17 19:04 19:05 19:10 19:15 Temp 96.4 96.4 96.4 96.4 Pulse 98 106 98 Resp 20 20 B/P (MAP) 90/54 (66) 112/74 (87) Pulse Ox 100 100 100 O2 Delivery Bag Valve Mask Ventilator Ventilator O2 Flow Rate 15.0 04/17/17 04/17/17 04/17/17 04/17/17 19:15 19:20 19:25 19:30 Pulse 106 110 106 102 Resp 20 20 20 20 B/P (MAP) 106/66 (79) 90/60 (70) 84/55 (65) 86/56 (66) Pulse Ox 100 100 100 100 O2 Delivery Ventilator Ventilator Ventilator Ventilator 04/17/17 04/17/17 04/17/17 04/17/17 19:35 19:40 21:05 21:10 Pulse 106 93 Resp 20 20 B/P (MAP) 93/62 (72) 100/52 (68) Pulse Ox 100 100 100 O2 Delivery Ventilator Ventilator Ventilator Mechanical Ventilator 04/17/17 04/17/17 04/17/17 04/17/17 21:10 21:25 21:25 21:40 Temp 95.0 94.8 93.8 95.0 94.8 93.8 Pulse 71 71 72 Resp 20 20 20 B/P (MAP) 134/75 (94) 134/75 (94) 118/74 (89) Pulse Ox 100 O2 Delivery Ventilator Ventilator Mechanical Ventilator Ventilator 04/17/17 04/17/17 04/17/17 04/17/17 21:40 21:53 21:54 22:00 Resp 36 36 Pulse Ox 100 100 O2 Delivery Mechanical Ventilator Ventilator Mechanical Ventilator O2 Flow Rate 15.0 15.0 04/17/17 04/17/17 04/17/17 04/17/17 22:00 23:00 23:00 23:17 Temp 92.6 90.4 92.6 90.4 Pulse 62 71 Resp 20 20 B/P (MAP) 109/69 (82) 121/76 (91) Pulse Ox 97 100 O2 Delivery Ventilator Mechanical Ventilator Ventilator Ventilator 04/18/17 04/18/17 04/18/17 04/18/17 00:00 00:00 01:00 01:00 Temp 89.1 90.8 89.1 90.8 Pulse 71 60 Resp 20 20 B/P (MAP) 144/79 (100) 118/63 (81) O2 Delivery Mechanical Ventilator Ventilator Ventilator Mechanical Ventilator 04/18/17 04/18/17 04/18/17 04/18/17 01:11 02:00 03:00 03:22 Temp 91.3 91.6 91.3 91.6 Pulse 68 71 Resp 20 20 B/P (MAP) 122/68 (86) 135/76 (95) Pulse Ox 100 100 O2 Delivery Ventilator Ventilator Ventilator Ventilator 04/18/17 04/18/17 04/18/17 04/18/17 03:29 04:00 04:00 05:00 Temp 91.2 92.2 91.2 92.2 Pulse 65 63 Resp 24 24 B/P (MAP) 118/74 (89) 122/76 (91) Pulse Ox 100 100 O2 Delivery Mechanical Ventilator Ventilator Ventilator O2 Flow Rate 15.0 04/18/17 04/18/17 04/18/17 04/18/17 06:00 06:00 07:00 07:29 Temp 91.8 90.3 91.8 90.3 Pulse 66 59 Resp 24 20 B/P (MAP) 128/75 (92) 139/72 (94) Pulse Ox 100 100 100 100 O2 Delivery Ventilator Ventilator Ventilator Ventilator 04/18/17 04/18/17 04/18/17 04/18/17 08:00 08:00 08:35 09:00 Temp 89.7 88.1 89.7 88.1 Pulse 48 59 Resp 20 16 B/P (MAP) 158/52 (87) 116/48 (70) Pulse Ox 100 100 O2 Delivery Ventilator Mechanical Ventilator Ventilator Ventilator 04/18/17 04/18/17 04/18/17 04/18/17 09:09 10:00 11:00 11:05 Temp 83.5 84.6 83.5 84.6 Pulse 59 52 Resp 16 16 B/P (MAP) 122/52 (75) 140/56 (84) Pulse Ox 100 100 100 100 O2 Delivery Ventilator Ventilator Ventilator Ventilator 04/18/17 12:00 O2 Delivery Mechanical Ventilator Intake and Output 04/17/17 04/17/17 04/18/17 15:00 23:00 07:00 Intake Total 0 ml 3465 ml Output Total 1575 ml 2550 ml Balance -1575 ml 915 ml LOVE MARIE MD Apr 18, 2017 12:22
--- NOTE | 2017-04-18 13:01 | EKG ---
[facility] [address] [place] [address] Test Date: 2017-04-18 Test Time: 12:59:44 Pat Name: ELADIO VELÁZQUEZ Department: Room: 108 1 Gender: M Director Of Payroll: ROBE : 1945 Requested By: LOVE MARIE Order Number: [id number] Reading MD: Measurements Intervals Shirley Rate: 62 P: SC: QRS: -39 QRSD: 88 T: -28 QT: 518 QTc: 529 Interpretive Statements ATRIAL FLUTTER ABNORMAL LEFT AXIS DEVIATION R-S TRANSITION ZONE IN V LEADS DISPLACED TO THE RIGHT QRS(T) CONTOUR ABNORMALITY CONSIDER ANTEROLATERAL MYOCARDIAL DAMAGE PROLONGED QT ABNORMAL ECG RI6.01 No previous ECG available for comparison
--- NOTE | 2017-04-18 13:08 | CARD ---
APPROVED REPORT Procedures Selective coronary angiogram Aortic root injection Abdominal aortic injection Placement of an intra-aortic balloon pump. The patient is a 71-year-old male who had an out of hospital ventricular fibrillation arrest. He rece ived CPR for at least 10-15 minutes. Paramedics found him in ventricular fibrillation and he was defi brillated. He was brought to the emergency room where he was intubated. EKGs show ST segment changes in the inferior leads. In this setting the risks and benefits of catheterization were discussed with the patient's family. They've agreed to proceed with emergency heart catheterization. After informed consent was obtained the patient was brought to the heart catheterization lab. The are aa of the right femoral artery wass prepared in the usual manner with Betadine, sterile draping and l ocal anesthetic. An 18-gauge needle was used to enter the right femoral vein, a wire placed and a 6 F rench sheath placed over the wire. An 18-gauge needle was used to enter the right femoral artery, a w norman placed and a 6 Cameroonian sheath placed over the wire. Initially a 6 Cameroonian J L4 diagnostic catheter was used to engage the left coronary system. Sequential injections in various views were obtained. A 6 Cameroonian JR4 guide was then used to engage the right coronary artery and sequential injections in va rious views were obtained. A pigtail catheter was advanced to the ascending aorta. A 30 BULGARIAN aortic r oot injection was performed. It was then placed onto the area of the renal arteries and a abdominal a ortic injection was performed. At this time an intra-aortic balloon pump was placed through the pre-e xisting right femoral artery sheath. It had normal function and was passed without difficulty. The sh eaths and balloon pump were sutured into place. The patient was then moved from the catheterization l ab to the intensive care unit in critical condition. Findings. Aortic root pressure at the initiation of the case on dopamine of 98/58. Aortic root pressure post-pl acement of intra-aortic balloon pump was 136/78. Coronaries. Left main. The left main had a 45% lesion. Left anterior descending. The LAD had a mid 95% lesion with collateralization to the distal right cor onary artery. Left circumflex. The left circumflex had a proximal 90% lesion and an 85% lesion of obtuse marginal 1 . Right coronary artery. The right coronary was proximally chronically occluded with collateralization from both the right coronary artery and the LAD. No left ventriculogram was performed. Aortic root injection. The aortic root appeared normal without aortic insufficiency or enlargement. Abdominal aortic injection. The abdominal aorta also appeared normal without significant disease. <Conclusion> 3 vessel coronary artery disease including a left main lesion and a chronically occluded right rios ry artery. Successful placement of an intra-aortic balloon pump.
--- NOTE | 2017-04-18 13:43 | PDOC2 ---
CONSULT Date of Consult Date of Consult DATE: 04/18/17 TIME: 13:39 Reason for Consult Reason for Consult: VENT MANAGEMENT POST CODE Identification/Chief Complaint Chief Complaint VENT MANAGEMENT Problems: History of Present Illness Reason for Visit: PT CURRENTLY ON VENT SEDATED UNDERGOING HYPOTHERMIC PROTOCOL The patient is a 71 year old male who collapsed at home after working outside today. His family could not find a pulse and started CPR and called paramedics. When they arrived they found the patient to be in VF and he was defibrillated. Lidocaine was started and he was transported to the ER. He was intubated in the ER and EKG changes suggested an inferior STEMI. He was treated with heparin and sedation. The patient reportedly has no history of CAD , CHF or arrhythmias. On lidocaine he has remained in sinus rhythm. Systolic BP is now 80 mmHG. Past Medical History Cardiovascular: HTN Family History Family History: Hypertension, Family History Unknown Social History No ALCOHOL: none Drugs: None Current Problem List Problem List Problems Medical Problems: (1) STEMI (ST elevation myocardial infarction) Status: Acute Current Medications Current Medications Current Medications Heparin Sodium (Porcine) (Heparin Sodium) 10,000 unit STK-MED ONCE .ROUTE ; Start 04/17/17 at 19:03; Stop 04/17/17 at 19:04; Status DC Heparin Sodium (Porcine) (Heparin Sodium) 4,000 unit 1X ONCE IV Last administered on 04/17/17 19:05; Start 04/17/17 at 19:15; Stop 04/17/17 at 19:49; Status DC Sodium Chloride 1,000 ml @ 1,000 mls/hr Q1H IV Last administered on 04/17/17 19:07; Start 04/17/17 at 19:07; Stop 04/17/17 at 20:06; Status DC Midazolam HCl 100 ml @ As Directed STK-MED ONCE IV ; Start 04/17/17 at 19:15; Stop 04/17/17 at 19:16; Status DC Etomidate (Amidate) 20 mg STK-MED ONCE IV ; Start 04/17/17 at 19:15; Stop at 19:16; Status DC Succinylcholine Chloride (Anectine) 200 mg STK-MED ONCE .ROUTE ; Start 04/17/17 at 19:16; Stop 04/17/17 at 19:17; Status DC Heparin Sodium/ Sodium Chloride 1,500 ml @ As Directed STK-MED ONCE .ROUTE ; Start 04/17/17 at 19:24; Stop 04/17/17 at 19:25; Status DC Lidocaine HCl 20 ml STK-MED ONCE .ROUTE ; Start 04/17/17 at 19:24; Stop 04/17/17 at 19:25; Status DC Iodixanol (Visipaque 320) 100 ml STK-MED ONCE .ROUTE ; Start 04/17/17 at 19:24; Stop 04/17/17 at 19:25; Status DC Dopamine HCl/ Dextrose 250 ml @ 0 mls/hr CONT PRN IV SEE I/O RECORD Last administered on 04/17/17 19:32; Start 04/17/17 at 19:30; Stop 04/17/17 at 20:54; Status DC Dopamine HCl/ Dextrose 250 ml @ As Directed STK-MED ONCE IV ; Start 04/17/17 at 19:30; Stop 04/17/17 at 19:31; Status DC Ondansetron HCl (Zofran) 4 mg PRN Q8HRS PRN IV NAUSEA/VOMITING; Start 04/17/17 at 19:30; Stop 04/18/17 at 19:29 Sodium Chloride 1,000 ml @ 100 mls/hr Q10H IV Last administered on 04/18/17 12 :35; Start 04/17/17 at 19:30; Stop 04/18/17 at 19:29 Acetaminophen (Tylenol) 650 mg PRN Q4HRS PRN PO FEVER; Start 04/17/17 at 19:30; Stop 04/18/17 at 19:29 Heparin Sodium (Porcine) (Heparin Sodium) 10,000 unit STK-MED ONCE .ROUTE ; Start 04/17/17 at 20:16; Stop 04/17/17 at 20:17; Status DC Tirofiban/Sodium Chloride 0 ml @ As Directed STK-MED ONCE IV ; Start 04/17/17 at 20:16; Stop 04/17/17 at 20:17; Status DC Famotidine (Pepcid) 20 mg QHS IVP Last administered on 04/17/17 22:30; Start at 21:00 Etomidate (Amidate) 20 mg 1X ONCE IV Last administered on 04/17/17 19:00; Start 04/17/17 at 20:30; Stop 04/17/17 at 21:05; Status DC Succinylcholine Chloride (Anectine) 100 mg 1X ONCE IV Last administered on 04/17 19:00; Start 04/17/17 at 20:30; Stop 04/17/17 at 21:07; Status DC Lidocaine HCl/ Dextrose 500 ml @ 0 mls/hr 1X ONCE IV Last administered on 18:55; Start 04/17/17 at 20:30; Stop 04/17/17 at 21:08; Status DC Dopamine HCl/ Dextrose 250 ml @ 0 mls/hr CONT PRN IV SEE I/O RECORD Last administered on 04/18/17 03:31; Start 04/17/17 at 20:30 Heparin Sodium/ Dextrose 500 ml @ As Directed STK-MED ONCE IV ; Start 04/17/17 at 20:43; Stop 04/17/17 at 20:44; Status DC Heparin Sodium/ Dextrose 500 ml @ 0 mls/hr CONT PRN IV SEE I/O RECORD Last administered on 04/17/17 20:50; Start 04/17/17 at 20:45 Midazolam HCl (Versed) 5 mg 1X ONCE IV Last administered on 04/17/17 19:17; Start 04/17/17 at 21:00; Stop 04/17/17 at 21:07; Status DC Heparin Sodium (Porcine) (Heparin Sodium) 2,000 unit 1X ONCE IV Last administered on 04/17/17 20:59; Start 04/17/17 at 21:00; Stop 04/17/17 at 21:06; Status DC Iodixanol (Visipaque 320) 134 ml 1X ONCE IART Last administered on 04/17/17 20 :58; Start 04/17/17 at 21:00; Stop 04/17/17 at 21:04; Status DC Lidocaine HCl 20 ml 1X ONCE IJ Last administered on 04/17/17 20:58; Start 04/17 at 21:00; Stop 04/17/17 at 21:08; Status DC Fentanyl Citrate 30 ml @ As Directed STK-MED ONCE IV ; Start 04/17/17 at 21:09; Stop 04/17/17 at 21:10; Status DC Sodium Chloride 1,000 ml @ 1,000 mls/hr Q1H IV Last administered on 04/17/17 23:30; Start 04/17/17 at 21:30; Stop 04/18/17 at 03:42; Status DC Fentanyl Citrate (Fentanyl 2ml Vial) 25 mcg PRN Q30MIN PRN IV SED; Start at 21:30 Lorazepam (Ativan) 1 mg PRN Q30MIN PRN IV SEDATION; Start 04/17/17 at 21:30 Fentanyl Citrate 30 ml @ 2.5 mls/hr CONT PRN PRN IV IVF Last administered on 03:29; Start 04/17/17 at 21:30 Propofol 100 ml @ 0 mls/hr CONT PRN IV SEE I/O RECORD Last administered on 07:51; Start 04/17/17 at 21:30 Vecuronium [place] (Norcuron Bolus) DOSE AT 0.1 mg/kg PRN Q30MIN PRN IV SHIVERING Last administered on 04/18/17 06:04; Start 04/17/17 at 21:30 Meperidine HCl (Demerol) 12.5 mg PRN Q30MIN PRN IV SHIVERING Last administered on 04/18/17 04:17; Start 04/17/17 at 21:30; Stop 04/18/17 at 04:18; Status DC Multi-Ingred Cream/Lotion/Oil/ Oint (Artificial Tears Eye Oint) 1 balaji PRN Q6HRS PRN OU 0.5 INCH FOR DRY EYE; Start 04/17/17 at 21:30 Famotidine (Pepcid) 20 mg BID IVP Last administered on 04/18/17 11:40; Start at 09:00 Aspirin (Aspirin) 300 mg DAILY TN ; Start 04/18/17 at 09:00 Sodium Chloride (Normal Saline Flush) 3 ml QSHIFT PRN IV AFTER MEDS AND BLOOD DRAWS; Start 04/17/17 at 21:30 Acetaminophen (Tylenol) 650 mg Q6HRS NG ; Start 04/18/17 at 00:00; Stop 04/18/17 at 23:59 Acetaminophen (Acetaminophen Supp) 650 mg PRN Q6HRS PRN TN MILD PAIN / TEMP; Start 04/18/17 at 21:30 Acetaminophen (Tylenol) 650 mg PRN Q6HRS PRN NG MILD PAIN / TEMP; Start at 21:30 Info 1 ea DAILY PRN MC PER PROTOCOL; Start 04/19/17 at 21:30 Heparin Sodium/ Dextrose 500 ml @ 0 mls/hr CONT PRN IV SEE I/O RECORD; Start at 21:30 Heparin Sodium (Porcine) (Heparin Sodium) 1,450 unit PRN Q6HRS PRN IV FOR UFH LEVEL LESS THAN 0.2; Start 04/17/17 at 21:30 Sodium Chloride 1,000 ml @ 60 mls/hr [id number] IV ; Start 04/17/17 at 21:45 Midazolam HCl 100 ml @ 0 mls/hr CONT PRN IV SEE I/O RECORD; Start 04/17/17 at 22 :00 Sodium Bicarbonate 100 meq 1X ONCE IV Last administered on 04/18/17 02:02; Start 04/18/17 at 00:00; Stop 04/18/17 at 00:01; Status DC Amiodarone HCl 900 mg/Dextrose 518 ml @ 0 mls/hr 1X ONCE IV Last administered on 04/18/17 08:00; Start 04/18/17 at 08:00; Stop 04/18/17 at 08:01; Status DC Pneumococcal Polyvalent Vaccine (Do NOT chart on this placeholder) 1 each PRN DAILY PRN MC UNABLE TO RESPOND; Start 04/18/17 at 08:45 Amiodarone HCl 900 mg/Dextrose 518 ml @ 34.53 mls/ hr CONT PRN IV SEE I/O RECORD; Start 04/18/17 at 09:45 Potassium Chloride 50 ml @ 50 mls/hr 1X ONCE IV ; Start 04/18/17 at 10:30; Stop 04/18/17 at 10:30; Status DC Potassium Chloride 100 ml @ 100 mls/hr Q1H IV Last administered on 04/18/17 11 :39; Start 04/18/17 at 10:30; Stop 04/18/17 at 12:29; Status DC Active Scripts Active Reported [No home meds] Allergies Allergies: Coded Allergies: Penicillins (Verified Allergy, Intermediate, 04/17/17) ROS Review of System UNABLE TO REVIEW Physical Exam General: Other (SEDATED) Heart: Regular rate, Normal S1, Normal S2 Abdomen: Other (NO BOWEL SOUNDS) Extremities: No clubbing, No cyanosis, No edema Skin: No rashes Psych/Mental Status: Other (SEDATED) Vitals VITALS Vital Signs Date Time Temp Pulse Resp B/P (MAP) Pulse Ox O2 Delivery O2 Flow Rate FiO2 04/18/17 13:10 100 Ventilator 04/18/17 13:00 89.6 62 16 131/58 (82) 89.6 04/18/17 03:29 15.0 Labs Labs Laboratory Tests Test 04/17/17 18:59 04/17/17 19:14 04/17/17 22:00 04/17/17 23:08 White Blood Count 16.3 x10^3/uL (4.0-11.0) 21.3 x10^3/uL (4.0-11.0) Red Blood Count 4.67 x10^6/uL (4.30-5.70) 4.84 x10^6/uL (4.30-5.70) Hemoglobin 16.6 g/dL (13.0-17.5) 17.3 g/dL (13.0-17.5) Hematocrit 49.3 % (39.0-53.0) 50.9 % (39.0-53.0) Mean Corpuscular Volume 106 fL (79-100) 105 fL (79-100) Mean Corpuscular Hemoglobin 36 pg (25-35) 36 pg (25-35) Mean Corpuscular Hemoglobin Concent 34 g/dL (31-37) 34 g/dL (31-37) Red Cell Distribution Width 14.1 % (11.5-14.5) 14.7 % (11.5-14.5) Platelet Count 186 x10^3/uL (140-400) 208 x10^3/uL (140-400) Neutrophils (%) (Auto) 58 % (31-73) Lymphocytes (%) (Auto) 33 % (24-48) Monocytes (%) (Auto) 6 % (0-9) Eosinophils (%) (Auto) 3 % (0-3) Basophils (%) (Auto) 1 % (0-3) Neutrophils # (Auto) 9.4 x10^3uL (1.8-7.7) Lymphocytes # (Auto) 5.3 x10^3/uL (1.0-4.8) Monocytes # (Auto) 1.0 x10^3/uL (0.0-1.1) Eosinophils # (Auto) 0.5 x10^3/uL (0.0-0.7) Basophils # (Auto) 0.1 x10^3/uL (0.0-0.2) Sodium Level 136 mmol/L (136-145) Potassium Level 3.3 mmol/L (3.5-5.1) Chloride Level 99 mmol/L (98-107) Carbon Dioxide Level 15 mmol/L (21-32) Anion Gap 22 (6-14) Blood Urea Nitrogen 9 mg/dL (8-26) Creatinine 0.7 mg/dL (0.7-1.3) Estimated GFR (Cockcroft-Gault) 111.8 Glucose Level 137 mg/dL (70-99) Calcium Level 8.6 mg/dL (8.5-10.1) Magnesium Level 2.2 mg/dL (1.8-2.4) Total Bilirubin 0.6 mg/dL (0.2-1.0) Direct Bilirubin 0.2 mg/dL (0.0-0.2) Aspartate Amino Transf (AST/SGOT) 72 U/L (15-37) Alanine Aminotransferase (ALT/SGPT) 50 U/L (16-63) Alkaline Phosphatase 78 U/L (46-116) Creatine Kinase 94 U/L (39-308) 1501 U/L (39-308) Creatine Kinase MB (Mass) 1.5 ng/mL (0.0-3.6) 215.0 ng/mL (0.0-3.6) Creatine Kinase MB Relative Index 1.6 % (0-4) 14.3 % (0-4) Troponin I Quantitative 0.176 ng/mL (0.000-0.055) VD-Fwy-P-Type Natriuretic Peptide 679 pg/mL (0-124) Total Protein 6.9 g/dL (6.4-8.2) Albumin 3.4 g/dL (3.4-5.0) Lipase 112 U/L (73-393) Urine Color Yellow Urine Clarity Clear Urine pH 6.5 Urine Specific [place] <=1.005 Urine Protein 100 mg/dL (NEG-TRACE) Urine Glucose (UA) Negative mg/dL (NEG) Urine Ketones (Stick) Negative mg/dL (NEG) Urine Blood Trace (NEG) Urine Nitrite Negative (NEG) Urine Bilirubin Negative (NEG) Urine Urobilinogen Dipstick 0.2 mg/dL (0.2 mg/dL) Urine Leukocyte Esterase Negative (NEG) Urine RBC 1-2 /HPF (0-2) Urine WBC 0 /HPF (0-4) Urine Squamous Epithelial Cells Occ /LPF Urine Bacteria 0 /HPF (0-FEW) Urine Sperm Present /HPF Prothrombin Time 15.2 SEC (11.7-14.0) Prothromb Time International Ratio 1.3 (0.8-1.1) Activated Partial Thromboplast Time > 150 SEC (24-38) Heparin Anti-Xa Act, Unfractionated 0.58 IU/mL (0.30-0.70) Lactic Acid Level 4.3 mmol/L (0.4-2.0) Amylase Level 472 U/L (25-115) O2 Saturation 98 % (92-99) Arterial Blood pH 7.13 (7.35-7.45) Arterial Blood pH (Temp corrected) 7.18 Arterial Blood pCO2 at Patient Temp 57 mmHg (35-46) Arterial Blood pCO2 (Temp correct) 48 mmHg Arterial Blood pO2 at Patient Temp 157 mmHg (65-108) Arterial Blood pO2 (Temp corrected) 137 mmHg Arterial Blood HCO3 19 mmol/L (21-28) Arterial Blood Base Excess -11 mmol/L (-3-3) Test 04/17/17 23:39 04/18/17 02:25 04/18/17 02:35 04/18/17 06:30 Glucose (Fingerstick) 138 mg/dL (70-99) White Blood Count 20.9 x10^3/uL (4.0-11.0) Red Blood Count 4.98 x10^6/uL (4.30-5.70) Hemoglobin 17.3 g/dL (13.0-17.5) Hematocrit 51.6 % (39.0-53.0) Mean Corpuscular Volume 104 fL (79-100) Mean Corpuscular Hemoglobin 35 pg (25-35) Mean Corpuscular Hemoglobin Concent 34 g/dL (31-37) Red Cell Distribution Width 13.9 % (11.5-14.5) Platelet Count 169 x10^3/uL (140-400) Neutrophils (%) (Auto) 86 % (31-73) Lymphocytes (%) (Auto) 7 % (24-48) Monocytes (%) (Auto) 6 % (0-9) Eosinophils (%) (Auto) 0 % (0-3) Basophils (%) (Auto) 0 % (0-3) Neutrophils # (Auto) 17.9 x10^3uL (1.8-7.7) Lymphocytes # (Auto) 1.5 x10^3/uL (1.0-4.8) Monocytes # (Auto) 1.3 x10^3/uL (0.0-1.1) Eosinophils # (Auto) 0.0 x10^3/uL (0.0-0.7) Basophils # (Auto) 0.1 x10^3/uL (0.0-0.2) Segmented Neutrophils % 75 % (35-66) Band Neutrophils % 9 % (0-9) Lymphocytes % 11 % (24-48) Monocytes % 5 % (0-10) Platelet Estimate Adequate (ADEQUATE) Macrocytosis Present Prothrombin Time 14.3 SEC (11.7-14.0) Prothromb Time International Ratio 1.2 (0.8-1.1) Activated Partial Thromboplast Time > 150 SEC (24-38) Sodium Level 142 mmol/L (136-145) Potassium Level 3.3 mmol/L (3.5-5.1) Chloride Level 106 mmol/L (98-107) Carbon Dioxide Level 26 mmol/L (21-32) Anion Gap 10 (6-14) Blood Urea Nitrogen 8 mg/dL (8-26) Creatinine 0.4 mg/dL (0.7-1.3) Estimated GFR (Cockcroft-Gault) 213.3 Glucose Level 111 mg/dL (70-99) Calcium Level 6.8 mg/dL (8.5-10.1) Phosphorus Level 2.5 mg/dL (2.6-4.7) Magnesium Level 1.8 mg/dL (1.8-2.4) Troponin I Quantitative 72.121 ng/mL (0.000-0.055) Lactic Acid Level 1.7 mmol/L (0.4-2.0) Urine Collection Type U cath Urine Color Yellow Urine Clarity Clear Urine pH 7.5 Urine Specific [place] <=1.005 Urine Protein Negative mg/dL (NEG-TRACE) Urine Glucose (UA) Negative mg/dL (NEG) Urine Ketones (Stick) Negative mg/dL (NEG) Urine Blood Moderate (NEG) Urine Nitrite Negative (NEG) Urine Bilirubin Negative (NEG) Urine Urobilinogen Dipstick 0.2 mg/dL (0.2 mg/dL) Urine Leukocyte Esterase Negative (NEG) Urine RBC 11-20 /HPF (0-2) Urine WBC 0 /HPF (0-4) Urine Bacteria 0 /HPF (0-FEW) Urine Mucus Slight /LPF Test 04/18/17 08:05 04/18/17 08:10 04/18/17 08:30 04/18/17 11:50 Sodium Level 140 mmol/L (136-145) 137 mmol/L (136-145) Potassium Level 2.8 mmol/L (3.5-5.1) 3.1 mmol/L (3.5-5.1) Chloride Level 105 mmol/L (98-107) 103 mmol/L (98-107) Carbon Dioxide Level 25 mmol/L (21-32) 23 mmol/L (21-32) Anion Gap 10 (6-14) 11 (6-14) Blood Urea Nitrogen 7 mg/dL (8-26) 8 mg/dL (8-26) Creatinine 0.4 mg/dL (0.7-1.3) 0.6 mg/dL (0.7-1.3) Estimated GFR (Cockcroft-Gault) 213.3 133.6 Glucose Level 130 mg/dL (70-99) 259 mg/dL (70-99) Lactic Acid Level 1.6 mmol/L (0.4-2.0) Calcium Level 7.4 mg/dL (8.5-10.1) 6.6 mg/dL (8.5-10.1) Ionized Calcium 0.90 mmol/L (1.13-1.32) Phosphorus Level 1.7 mg/dL (2.6-4.7) 1.7 mg/dL (2.6-4.7) Magnesium Level 1.8 mg/dL (1.8-2.4) 1.6 mg/dL (1.8-2.4) Total Bilirubin 0.7 mg/dL (0.2-1.0) Direct Bilirubin 0.2 mg/dL (0.0-0.2) Aspartate Amino Transf (AST/SGOT) 391 U/L (15-37) Alanine Aminotransferase (ALT/SGPT) 90 U/L (16-63) Alkaline Phosphatase 78 U/L (46-116) Total Protein 6.5 g/dL (6.4-8.2) Albumin 3.0 g/dL (3.4-5.0) Lipase 64 U/L (73-393) Heparin Anti-Xa Act, Unfractionated 0.67 IU/mL (0.30-0.70) O2 Saturation 99 % (92-99) Arterial Blood pH 7.51 (7.35-7.45) Arterial Blood pH (Temp corrected) 7.61 Arterial Blood pCO2 at Patient Temp 24 mmHg (35-46) Arterial Blood pCO2 (Temp correct) 18 mmHg Arterial Blood pO2 at Patient Temp 401 mmHg (65-108) Arterial Blood pO2 (Temp corrected) 364 mmHg Arterial Blood HCO3 18 mmol/L (21-28) Arterial Blood Base Excess -2 mmol/L (-3-3) FiO2 100 Laboratory Tests Test 04/17/17 18:59 04/17/17 19:14 04/17/17 22:00 04/17/17 23:08 White Blood Count 16.3 x10^3/uL (4.0-11.0) 21.3 x10^3/uL (4.0-11.0) Red Blood Count 4.67 x10^6/uL (4.30-5.70) 4.84 x10^6/uL (4.30-5.70) Hemoglobin 16.6 g/dL (13.0-17.5) 17.3 g/dL (13.0-17.5) Hematocrit 49.3 % (39.0-53.0) 50.9 % (39.0-53.0) Mean Corpuscular Volume 106 fL (79-100) 105 fL (79-100) Mean Corpuscular Hemoglobin 36 pg (25-35) 36 pg (25-35) Mean Corpuscular Hemoglobin Concent 34 g/dL (31-37) 34 g/dL (31-37) Red Cell Distribution Width 14.1 % (11.5-14.5) 14.7 % (11.5-14.5) Platelet Count 186 x10^3/uL (140-400) 208 x10^3/uL (140-400) Neutrophils (%) (Auto) 58 % (31-73) Lymphocytes (%) (Auto) 33 % (24-48) Monocytes (%) (Auto) 6 % (0-9) Eosinophils (%) (Auto) 3 % (0-3) Basophils (%) (Auto) 1 % (0-3) Neutrophils # (Auto) 9.4 x10^3uL (1.8-7.7) Lymphocytes # (Auto) 5.3 x10^3/uL (1.0-4.8) Monocytes # (Auto) 1.0 x10^3/uL (0.0-1.1) Eosinophils # (Auto) 0.5 x10^3/uL (0.0-0.7) Basophils # (Auto) 0.1 x10^3/uL (0.0-0.2) Sodium Level 136 mmol/L (136-145) Potassium Level 3.3 mmol/L (3.5-5.1) Chloride Level 99 mmol/L (98-107) Carbon Dioxide Level 15 mmol/L (21-32) Anion Gap 22 (6-14) Blood Urea Nitrogen 9 mg/dL (8-26) Creatinine 0.7 mg/dL (0.7-1.3) Estimated GFR (Cockcroft-Gault) 111.8 Glucose Level 137 mg/dL (70-99) Calcium Level 8.6 mg/dL (8.5-10.1) Magnesium Level 2.2 mg/dL (1.8-2.4) Total Bilirubin 0.6 mg/dL (0.2-1.0) Direct Bilirubin 0.2 mg/dL (0.0-0.2) Aspartate Amino Transf (AST/SGOT) 72 U/L (15-37) Alanine Aminotransferase (ALT/SGPT) 50 U/L (16-63) Alkaline Phosphatase 78 U/L (46-116) Creatine Kinase 94 U/L (39-308) 1501 U/L (39-308) Creatine Kinase MB (Mass) 1.5 ng/mL (0.0-3.6) 215.0 ng/mL (0.0-3.6) Creatine Kinase MB Relative Index 1.6 % (0-4) 14.3 % (0-4) Troponin I Quantitative 0.176 ng/mL (0.000-0.055) JT-Oqn-[id number]-Type Natriuretic Peptide 679 pg/mL (0-124) Total Protein 6.9 g/dL (6.4-8.2) Albumin 3.4 g/dL (3.4-5.0) Lipase 112 U/L (73-393) Urine Color Yellow Urine Clarity Clear Urine pH 6.5 Urine Specific [place] <=1.005 Urine Protein 100 mg/dL (NEG-TRACE) Urine Glucose (UA) Negative mg/dL (NEG) Urine Ketones (Stick) Negative mg/dL (NEG) Urine Blood Trace (NEG) Urine Nitrite Negative (NEG) Urine Bilirubin Negative (NEG) Urine Urobilinogen Dipstick 0.2 mg/dL (0.2 mg/dL) Urine Leukocyte Esterase Negative (NEG) Urine RBC 1-2 /HPF (0-2) Urine WBC 0 /HPF (0-4) Urine Squamous Epithelial Cells Occ /LPF Urine Bacteria 0 /HPF (0-FEW) Urine Sperm Present /HPF Prothrombin Time 15.2 SEC (11.7-14.0) Prothromb Time International Ratio 1.3 (0.8-1.1) Activated Partial Thromboplast Time > 150 SEC (24-38) Heparin Anti-Xa Act, Unfractionated 0.58 IU/mL (0.30-0.70) Lactic Acid Level 4.3 mmol/L (0.4-2.0) Amylase Level 472 U/L (25-115) O2 Saturation 98 % (92-99) Arterial Blood pH 7.13 (7.35-7.45) Arterial Blood pH (Temp corrected) 7.18 Arterial Blood pCO2 at Patient Temp 57 mmHg (35-46) Arterial Blood pCO2 (Temp correct) 48 mmHg Arterial Blood pO2 at Patient Temp 157 mmHg (65-108) Arterial Blood pO2 (Temp corrected) 137 mmHg Arterial Blood HCO3 19 mmol/L (21-28) Arterial Blood Base Excess -11 mmol/L (-3-3) Test 04/17/17 23:39 04/18/17 02:25 04/18/17 02:35 04/18/17 06:30 Glucose (Fingerstick) 138 mg/dL (70-99) White Blood Count 20.9 x10^3/uL (4.0-11.0) Red Blood Count 4.98 x10^6/uL (4.30-5.70) Hemoglobin 17.3 g/dL (13.0-17.5) Hematocrit 51.6 % (39.0-53.0) Mean Corpuscular Volume 104 fL (79-100) Mean Corpuscular Hemoglobin 35 pg (25-35) Mean Corpuscular Hemoglobin Concent 34 g/dL (31-37) Red Cell Distribution Width 13.9 % (11.5-14.5) Platelet Count 169 x10^3/uL (140-400) Neutrophils (%) (Auto) 86 % (31-73) Lymphocytes (%) (Auto) 7 % (24-48) Monocytes (%) (Auto) 6 % (0-9) Eosinophils (%) (Auto) 0 % (0-3) Basophils (%) (Auto) 0 % (0-3) Neutrophils # (Auto) 17.9 x10^3uL (1.8-7.7) Lymphocytes # (Auto) 1.5 x10^3/uL (1.0-4.8) Monocytes # (Auto) 1.3 x10^3/uL (0.0-1.1) Eosinophils # (Auto) 0.0 x10^3/uL (0.0-0.7) Basophils # (Auto) 0.1 x10^3/uL (0.0-0.2) Segmented Neutrophils % 75 % (35-66) Band Neutrophils % 9 % (0-9) Lymphocytes % 11 % (24-48) Monocytes % 5 % (0-10) Platelet Estimate Adequate (ADEQUATE) Macrocytosis Present Prothrombin Time 14.3 SEC (11.7-14.0) Prothromb Time International Ratio 1.2 (0.8-1.1) Activated Partial Thromboplast Time > 150 SEC (24-38) Sodium Level 142 mmol/L (136-145) Potassium Level 3.3 mmol/L (3.5-5.1) Chloride Level 106 mmol/L (98-107) Carbon Dioxide Level 26 mmol/L (21-32) Anion Gap 10 (6-14) Blood Urea Nitrogen 8 mg/dL (8-26) Creatinine 0.4 mg/dL (0.7-1.3) Estimated GFR (Cockcroft-Gault) 213.3 Glucose Level 111 mg/dL (70-99) Calcium Level 6.8 mg/dL (8.5-10.1) Phosphorus Level 2.5 mg/dL (2.6-4.7) Magnesium Level 1.8 mg/dL (1.8-2.4) Troponin I Quantitative 72.121 ng/mL (0.000-0.055) Lactic Acid Level 1.7 mmol/L (0.4-2.0) Urine Collection Type U cath Urine Color Yellow Urine Clarity Clear Urine pH 7.5 Urine Specific [place] <=1.005 Urine Protein Negative mg/dL (NEG-TRACE) Urine Glucose (UA) Negative mg/dL (NEG) Urine Ketones (Stick) Negative mg/dL (NEG) Urine Blood Moderate (NEG) Urine Nitrite Negative (NEG) Urine Bilirubin Negative (NEG) Urine Urobilinogen Dipstick 0.2 mg/dL (0.2 mg/dL) Urine Leukocyte Esterase Negative (NEG) Urine RBC 11-20 /HPF (0-2) Urine WBC 0 /HPF (0-4) Urine Bacteria 0 /HPF (0-FEW) Urine Mucus Slight /LPF Test 04/18/17 08:05 04/18/17 08:10 04/18/17 08:30 04/18/17 11:50 Sodium Level 140 mmol/L (136-145) 137 mmol/L (136-145) Potassium Level 2.8 mmol/L (3.5-5.1) 3.1 mmol/L (3.5-5.1) Chloride Level 105 mmol/L (98-107) 103 mmol/L (98-107) Carbon Dioxide Level 25 mmol/L (21-32) 23 mmol/L (21-32) Anion Gap 10 (6-14) 11 (6-14) Blood Urea Nitrogen 7 mg/dL (8-26) 8 mg/dL (8-26) Creatinine 0.4 mg/dL (0.7-1.3) 0.6 mg/dL (0.7-1.3) Estimated GFR (Cockcroft-Gault) 213.3 133.6 Glucose Level 130 mg/dL (70-99) 259 mg/dL (70-99) Lactic Acid Level 1.6 mmol/L (0.4-2.0) Calcium Level 7.4 mg/dL (8.5-10.1) 6.6 mg/dL (8.5-10.1) Ionized Calcium 0.90 mmol/L (1.13-1.32) Phosphorus Level 1.7 mg/dL (2.6-4.7) 1.7 mg/dL (2.6-4.7) Magnesium Level 1.8 mg/dL (1.8-2.4) 1.6 mg/dL (1.8-2.4) Total Bilirubin 0.7 mg/dL (0.2-1.0) Direct Bilirubin 0.2 mg/dL (0.0-0.2) Aspartate Amino Transf (AST/SGOT) 391 U/L (15-37) Alanine Aminotransferase (ALT/SGPT) 90 U/L (16-63) Alkaline Phosphatase 78 U/L (46-116) Total Protein 6.5 g/dL (6.4-8.2) Albumin 3.0 g/dL (3.4-5.0) Lipase 64 U/L (73-393) Heparin Anti-Xa Act, Unfractionated 0.67 IU/mL (0.30-0.70) O2 Saturation 99 % (92-99) Arterial Blood pH 7.51 (7.35-7.45) Arterial Blood pH (Temp corrected) 7.61 Arterial Blood pCO2 at Patient Temp 24 mmHg (35-46) Arterial Blood pCO2 (Temp correct) 18 mmHg Arterial Blood pO2 at Patient Temp 401 mmHg (65-108) Arterial Blood pO2 (Temp corrected) 364 mmHg Arterial Blood HCO3 18 mmol/L (21-28) Arterial Blood Base Excess -2 mmol/L (-3-3) FiO2 100 Images Images CXR REVIEWED Assessment/Plan Assessment/Plan ACUTE RESPIRATORY FAILURE SEC TO CARDIAC ARREST VF/DEFIBRILLATED IN FIELD CAD PER CARD HYPOKALEMIA POSSIBLE ANOXIC BRAIN INJURY CARDIOGENIC SHOCK PLAN CONTINUE SUPPORT D/C DIPRIVAN AND START VERSED D/W RT AND RN REWARM LATER TODAY PRESSORS PER CARD REPLACE IV FLUIDS PT WITH POSSIBLE SIADH FROM BRAIN INJURY APRIL ESCUDERO MD Apr 18, 2017 13:43
--- NOTE | 2017-04-18 13:54 | PDOC ---
PROGRESS NOTES Chief Complaint Chief Complaint 1. Post code 2. cardiac arrest, vifb, 2/2 acute [place] likely, possible STEMI 3. ACUTE resp failure with cardiac arrest 4. hypokalemia 5. shock ,cardiogenic likely 6. leukocytosis, reactive 7. AMS, from cardiac arrest 8. Multivessel disease including left main History of Present Illness History of Present Illness Patient intubated (AC/16/500/50%) and requiring bear hugger warming device and warming mats. Vitals Vitals Vital Signs Date Time Temp Pulse Resp B/P (MAP) Pulse Ox O2 Delivery O2 Flow Rate FiO2 04/18/17 13:10 100 Ventilator 04/18/17 13:00 89.6 62 16 131/58 (82) 89.6 04/18/17 03:29 15.0 Physical Exam General: No acute distress, Other (sedated on a ventilator) Heart: Regular rate Abdomen: Normal bowel sounds Labs LABS Laboratory Tests Test 04/17/17 18:59 04/17/17 19:14 04/17/17 22:00 04/17/17 23:08 White Blood Count 16.3 x10^3/uL (4.0-11.0) 21.3 x10^3/uL (4.0-11.0) Red Blood Count 4.67 x10^6/uL (4.30-5.70) 4.84 x10^6/uL (4.30-5.70) Hemoglobin 16.6 g/dL (13.0-17.5) 17.3 g/dL (13.0-17.5) Hematocrit 49.3 % (39.0-53.0) 50.9 % (39.0-53.0) Mean Corpuscular Volume 106 fL (79-100) 105 fL (79-100) Mean Corpuscular Hemoglobin 36 pg (25-35) 36 pg (25-35) Mean Corpuscular Hemoglobin Concent 34 g/dL (31-37) 34 g/dL (31-37) Red Cell Distribution Width 14.1 % (11.5-14.5) 14.7 % (11.5-14.5) Platelet Count 186 x10^3/uL (140-400) 208 x10^3/uL (140-400) Neutrophils (%) (Auto) 58 % (31-73) Lymphocytes (%) (Auto) 33 % (24-48) Monocytes (%) (Auto) 6 % (0-9) Eosinophils (%) (Auto) 3 % (0-3) Basophils (%) (Auto) 1 % (0-3) Neutrophils # (Auto) 9.4 x10^3uL (1.8-7.7) Lymphocytes # (Auto) 5.3 x10^3/uL (1.0-4.8) Monocytes # (Auto) 1.0 x10^3/uL (0.0-1.1) Eosinophils # (Auto) 0.5 x10^3/uL (0.0-0.7) Basophils # (Auto) 0.1 x10^3/uL (0.0-0.2) Sodium Level 136 mmol/L (136-145) Potassium Level 3.3 mmol/L (3.5-5.1) Chloride Level 99 mmol/L (98-107) Carbon Dioxide Level 15 mmol/L (21-32) Anion Gap 22 (6-14) Blood Urea Nitrogen 9 mg/dL (8-26) Creatinine 0.7 mg/dL (0.7-1.3) Estimated GFR (Cockcroft-Gault) 111.8 Glucose Level 137 mg/dL (70-99) Calcium Level 8.6 mg/dL (8.5-10.1) Magnesium Level 2.2 mg/dL (1.8-2.4) Total Bilirubin 0.6 mg/dL (0.2-1.0) Direct Bilirubin 0.2 mg/dL (0.0-0.2) Aspartate Amino Transf (AST/SGOT) 72 U/L (15-37) Alanine Aminotransferase (ALT/SGPT) 50 U/L (16-63) Alkaline Phosphatase 78 U/L (46-116) Creatine Kinase 94 U/L (39-308) 1501 U/L (39-308) Creatine Kinase MB (Mass) 1.5 ng/mL (0.0-3.6) 215.0 ng/mL (0.0-3.6) Creatine Kinase MB Relative Index 1.6 % (0-4) 14.3 % (0-4) Troponin I Quantitative 0.176 ng/mL (0.000-0.055) YD-Wdx-[id number]-Type Natriuretic Peptide 679 pg/mL (0-124) Total Protein 6.9 g/dL (6.4-8.2) Albumin 3.4 g/dL (3.4-5.0) Lipase 112 U/L (73-393) Urine Color Yellow Urine Clarity Clear Urine pH 6.5 Urine Specific [place] <=1.005 Urine Protein 100 mg/dL (NEG-TRACE) Urine Glucose (UA) Negative mg/dL (NEG) Urine Ketones (Stick) Negative mg/dL (NEG) Urine Blood Trace (NEG) Urine Nitrite Negative (NEG) Urine Bilirubin Negative (NEG) Urine Urobilinogen Dipstick 0.2 mg/dL (0.2 mg/dL) Urine Leukocyte Esterase Negative (NEG) Urine RBC 1-2 /HPF (0-2) Urine WBC 0 /HPF (0-4) Urine Squamous Epithelial Cells Occ /LPF Urine Bacteria 0 /HPF (0-FEW) Urine Sperm Present /HPF Prothrombin Time 15.2 SEC (11.7-14.0) Prothromb Time International Ratio 1.3 (0.8-1.1) Activated Partial Thromboplast Time > 150 SEC (24-38) Heparin Anti-Xa Act, Unfractionated 0.58 IU/mL (0.30-0.70) Lactic Acid Level 4.3 mmol/L (0.4-2.0) Amylase Level 472 U/L (25-115) O2 Saturation 98 % (92-99) Arterial Blood pH 7.13 (7.35-7.45) Arterial Blood pH (Temp corrected) 7.18 Arterial Blood pCO2 at Patient Temp 57 mmHg (35-46) Arterial Blood pCO2 (Temp correct) 48 mmHg Arterial Blood pO2 at Patient Temp 157 mmHg (65-108) Arterial Blood pO2 (Temp corrected) 137 mmHg Arterial Blood HCO3 19 mmol/L (21-28) Arterial Blood Base Excess -11 mmol/L (-3-3) Test 04/17/17 23:39 04/18/17 02:25 04/18/17 02:35 04/18/17 06:30 Glucose (Fingerstick) 138 mg/dL (70-99) White Blood Count 20.9 x10^3/uL (4.0-11.0) Red Blood Count 4.98 x10^6/uL (4.30-5.70) Hemoglobin 17.3 g/dL (13.0-17.5) Hematocrit 51.6 % (39.0-53.0) Mean Corpuscular Volume 104 fL (79-100) Mean Corpuscular Hemoglobin 35 pg (25-35) Mean Corpuscular Hemoglobin Concent 34 g/dL (31-37) Red Cell Distribution Width 13.9 % (11.5-14.5) Platelet Count 169 x10^3/uL (140-400) Neutrophils (%) (Auto) 86 % (31-73) Lymphocytes (%) (Auto) 7 % (24-48) Monocytes (%) (Auto) 6 % (0-9) Eosinophils (%) (Auto) 0 % (0-3) Basophils (%) (Auto) 0 % (0-3) Neutrophils # (Auto) 17.9 x10^3uL (1.8-7.7) Lymphocytes # (Auto) 1.5 x10^3/uL (1.0-4.8) Monocytes # (Auto) 1.3 x10^3/uL (0.0-1.1) Eosinophils # (Auto) 0.0 x10^3/uL (0.0-0.7) Basophils # (Auto) 0.1 x10^3/uL (0.0-0.2) Segmented Neutrophils % 75 % (35-66) Band Neutrophils % 9 % (0-9) Lymphocytes % 11 % (24-48) Monocytes % 5 % (0-10) Platelet Estimate Adequate (ADEQUATE) Macrocytosis Present Prothrombin Time 14.3 SEC (11.7-14.0) Prothromb Time International Ratio 1.2 (0.8-1.1) Activated Partial Thromboplast Time > 150 SEC (24-38) Sodium Level 142 mmol/L (136-145) Potassium Level 3.3 mmol/L (3.5-5.1) Chloride Level 106 mmol/L (98-107) Carbon Dioxide Level 26 mmol/L (21-32) Anion Gap 10 (6-14) Blood Urea Nitrogen 8 mg/dL (8-26) Creatinine 0.4 mg/dL (0.7-1.3) Estimated GFR (Cockcroft-Gault) 213.3 Glucose Level 111 mg/dL (70-99) Calcium Level 6.8 mg/dL (8.5-10.1) Phosphorus Level 2.5 mg/dL (2.6-4.7) Magnesium Level 1.8 mg/dL (1.8-2.4) Troponin I Quantitative 72.121 ng/mL (0.000-0.055) Lactic Acid Level 1.7 mmol/L (0.4-2.0) Urine Collection Type U cath Urine Color Yellow Urine Clarity Clear Urine pH 7.5 Urine Specific [place] <=1.005 Urine Protein Negative mg/dL (NEG-TRACE) Urine Glucose (UA) Negative mg/dL (NEG) Urine Ketones (Stick) Negative mg/dL (NEG) Urine Blood Moderate (NEG) Urine Nitrite Negative (NEG) Urine Bilirubin Negative (NEG) Urine Urobilinogen Dipstick 0.2 mg/dL (0.2 mg/dL) Urine Leukocyte Esterase Negative (NEG) Urine RBC 11-20 /HPF (0-2) Urine WBC 0 /HPF (0-4) Urine Bacteria 0 /HPF (0-FEW) Urine Mucus Slight /LPF Test 04/18/17 08:05 04/18/17 08:10 04/18/17 08:30 04/18/17 11:50 Sodium Level 140 mmol/L (136-145) 137 mmol/L (136-145) Potassium Level 2.8 mmol/L (3.5-5.1) 3.1 mmol/L (3.5-5.1) Chloride Level 105 mmol/L (98-107) 103 mmol/L (98-107) Carbon Dioxide Level 25 mmol/L (21-32) 23 mmol/L (21-32) Anion Gap 10 (6-14) 11 (6-14) Blood Urea Nitrogen 7 mg/dL (8-26) 8 mg/dL (8-26) Creatinine 0.4 mg/dL (0.7-1.3) 0.6 mg/dL (0.7-1.3) Estimated GFR (Cockcroft-Gault) 213.3 133.6 Glucose Level 130 mg/dL (70-99) 259 mg/dL (70-99) Lactic Acid Level 1.6 mmol/L (0.4-2.0) Calcium Level 7.4 mg/dL (8.5-10.1) 6.6 mg/dL (8.5-10.1) Ionized Calcium 0.90 mmol/L (1.13-1.32) Phosphorus Level 1.7 mg/dL (2.6-4.7) 1.7 mg/dL (2.6-4.7) Magnesium Level 1.8 mg/dL (1.8-2.4) 1.6 mg/dL (1.8-2.4) Total Bilirubin 0.7 mg/dL (0.2-1.0) Direct Bilirubin 0.2 mg/dL (0.0-0.2) Aspartate Amino Transf (AST/SGOT) 391 U/L (15-37) Alanine Aminotransferase (ALT/SGPT) 90 U/L (16-63) Alkaline Phosphatase 78 U/L (46-116) Total Protein 6.5 g/dL (6.4-8.2) Albumin 3.0 g/dL (3.4-5.0) Lipase 64 U/L (73-393) Heparin Anti-Xa Act, Unfractionated 0.67 IU/mL (0.30-0.70) O2 Saturation 99 % (92-99) Arterial Blood pH 7.51 (7.35-7.45) Arterial Blood pH (Temp corrected) 7.61 Arterial Blood pCO2 at Patient Temp 24 mmHg (35-46) Arterial Blood pCO2 (Temp correct) 18 mmHg Arterial Blood pO2 at Patient Temp 401 mmHg (65-108) Arterial Blood pO2 (Temp corrected) 364 mmHg Arterial Blood HCO3 18 mmol/L (21-28) Arterial Blood Base Excess -2 mmol/L (-3-3) FiO2 100 Assessment and Plan Assessmemt and Plan Assessment: 1. Post code 2. cardiac arrest, vifb, 2/2 acute [place] likely, possible STEMI 3. ACUTE resp failure with cardiac arrest 4. hypokalemia 5. shock ,cardiogenic likely 6. leukocytosis, reactive 7. AMS, from cardiac arrest 8. Multivessel disease including left main Plan: Continue ICU care Continue hypothermia protocol Patient is intubated (AC//500/50%), sedated, pulm consult, CXR daily Continue to keep MAP >65 , need pressors Finney in place and monitor urine output >0.5cc/kg NPO IVF Continue lidocaine drip SSI q6h need to get PMH AND home meds Cards recommends echo today and balloon pump Daily labs DVT and GI prophylaxis Continue to monitor potassium and replace as needed Consult palliative care regarding shelter goals and care clarification Appreciate subspecialty input and assistance Discussed plan with nursing Total time 31 minutes Problems: Comment Review of Relevant I have reviewed the following items erna (where applicable) has been applied. Labs Laboratory Tests Test 04/17/17 18:59 04/17/17 19:14 04/17/17 22:00 04/17/17 23:08 White Blood Count 16.3 x10^3/uL (4.0-11.0) 21.3 x10^3/uL (4.0-11.0) Red Blood Count 4.67 x10^6/uL (4.30-5.70) 4.84 x10^6/uL (4.30-5.70) Hemoglobin 16.6 g/dL (13.0-17.5) 17.3 g/dL (13.0-17.5) Hematocrit 49.3 % (39.0-53.0) 50.9 % (39.0-53.0) Mean Corpuscular Volume 106 fL (79-100) 105 fL (79-100) Mean Corpuscular Hemoglobin 36 pg (25-35) 36 pg (25-35) Mean Corpuscular Hemoglobin Concent 34 g/dL (31-37) 34 g/dL (31-37) Red Cell Distribution Width 14.1 % (11.5-14.5) 14.7 % (11.5-14.5) Platelet Count 186 x10^3/uL (140-400) 208 x10^3/uL (140-400) Neutrophils (%) (Auto) 58 % (31-73) Lymphocytes (%) (Auto) 33 % (24-48) Monocytes (%) (Auto) 6 % (0-9) Eosinophils (%) (Auto) 3 % (0-3) Basophils (%) (Auto) 1 % (0-3) Neutrophils # (Auto) 9.4 x10^3uL (1.8-7.7) Lymphocytes # (Auto) 5.3 x10^3/uL (1.0-4.8) Monocytes # (Auto) 1.0 x10^3/uL (0.0-1.1) Eosinophils # (Auto) 0.5 x10^3/uL (0.0-0.7) Basophils # (Auto) 0.1 x10^3/uL (0.0-0.2) Sodium Level 136 mmol/L (136-145) Potassium Level 3.3 mmol/L (3.5-5.1) Chloride Level 99 mmol/L (98-107) Carbon Dioxide Level 15 mmol/L (21-32) Anion Gap 22 (6-14) Blood Urea Nitrogen 9 mg/dL (8-26) Creatinine 0.7 mg/dL (0.7-1.3) Estimated GFR (Cockcroft-Gault) 111.8 Glucose Level 137 mg/dL (70-99) Calcium Level 8.6 mg/dL (8.5-10.1) Magnesium Level 2.2 mg/dL (1.8-2.4) Total Bilirubin 0.6 mg/dL (0.2-1.0) Direct Bilirubin 0.2 mg/dL (0.0-0.2) Aspartate Amino Transf (AST/SGOT) 72 U/L (15-37) Alanine Aminotransferase (ALT/SGPT) 50 U/L (16-63) Alkaline Phosphatase 78 U/L (46-116) Creatine Kinase 94 U/L (39-308) 1501 U/L (39-308) Creatine Kinase MB (Mass) 1.5 ng/mL (0.0-3.6) 215.0 ng/mL (0.0-3.6) Creatine Kinase MB Relative Index 1.6 % (0-4) 14.3 % (0-4) Troponin I Quantitative 0.176 ng/mL (0.000-0.055) WU-Vhb-X-Type Natriuretic Peptide 679 pg/mL (0-124) Total Protein 6.9 g/dL (6.4-8.2) Albumin 3.4 g/dL (3.4-5.0) Lipase 112 U/L (73-393) Urine Color Yellow Urine Clarity Clear Urine pH 6.5 Urine Specific [place] <=1.005 Urine Protein 100 mg/dL (NEG-TRACE) Urine Glucose (UA) Negative mg/dL (NEG) Urine Ketones (Stick) Negative mg/dL (NEG) Urine Blood Trace (NEG) Urine Nitrite Negative (NEG) Urine Bilirubin Negative (NEG) Urine Urobilinogen Dipstick 0.2 mg/dL (0.2 mg/dL) Urine Leukocyte Esterase Negative (NEG) Urine RBC 1-2 /HPF (0-2) Urine WBC 0 /HPF (0-4) Urine Squamous Epithelial Cells Occ /LPF Urine Bacteria 0 /HPF (0-FEW) Urine Sperm Present /HPF Prothrombin Time 15.2 SEC (11.7-14.0) Prothromb Time International Ratio 1.3 (0.8-1.1) Activated Partial Thromboplast Time > 150 SEC (24-38) Heparin Anti-Xa Act, Unfractionated 0.58 IU/mL (0.30-0.70) Lactic Acid Level 4.3 mmol/L (0.4-2.0) Amylase Level 472 U/L (25-115) O2 Saturation 98 % (92-99) Arterial Blood pH 7.13 (7.35-7.45) Arterial Blood pH (Temp corrected) 7.18 Arterial Blood pCO2 at Patient Temp 57 mmHg (35-46) Arterial Blood pCO2 (Temp correct) 48 mmHg Arterial Blood pO2 at Patient Temp 157 mmHg (65-108) Arterial Blood pO2 (Temp corrected) 137 mmHg Arterial Blood HCO3 19 mmol/L (21-28) Arterial Blood Base Excess -11 mmol/L (-3-3) Test 04/17/17 23:39 04/18/17 02:25 04/18/17 02:35 04/18/17 06:30 Glucose (Fingerstick) 138 mg/dL (70-99) White Blood Count 20.9 x10^3/uL (4.0-11.0) Red Blood Count 4.98 x10^6/uL (4.30-5.70) Hemoglobin 17.3 g/dL (13.0-17.5) Hematocrit 51.6 % (39.0-53.0) Mean Corpuscular Volume 104 fL (79-100) Mean Corpuscular Hemoglobin 35 pg (25-35) Mean Corpuscular Hemoglobin Concent 34 g/dL (31-37) Red Cell Distribution Width 13.9 % (11.5-14.5) Platelet Count 169 x10^3/uL (140-400) Neutrophils (%) (Auto) 86 % (31-73) Lymphocytes (%) (Auto) 7 % (24-48) Monocytes (%) (Auto) 6 % (0-9) Eosinophils (%) (Auto) 0 % (0-3) Basophils (%) (Auto) 0 % (0-3) Neutrophils # (Auto) 17.9 x10^3uL (1.8-7.7) Lymphocytes # (Auto) 1.5 x10^3/uL (1.0-4.8) Monocytes # (Auto) 1.3 x10^3/uL (0.0-1.1) Eosinophils # (Auto) 0.0 x10^3/uL (0.0-0.7) Basophils # (Auto) 0.1 x10^3/uL (0.0-0.2) Segmented Neutrophils % 75 % (35-66) Band Neutrophils % 9 % (0-9) Lymphocytes % 11 % (24-48) Monocytes % 5 % (0-10) Platelet Estimate Adequate (ADEQUATE) Macrocytosis Present Prothrombin Time 14.3 SEC (11.7-14.0) Prothromb Time International Ratio 1.2 (0.8-1.1) Activated Partial Thromboplast Time > 150 SEC (24-38) Sodium Level 142 mmol/L (136-145) Potassium Level 3.3 mmol/L (3.5-5.1) Chloride Level 106 mmol/L (98-107) Carbon Dioxide Level 26 mmol/L (21-32) Anion Gap 10 (6-14) Blood Urea Nitrogen 8 mg/dL (8-26) Creatinine 0.4 mg/dL (0.7-1.3) Estimated GFR (Cockcroft-Gault) 213.3 Glucose Level 111 mg/dL (70-99) Calcium Level 6.8 mg/dL (8.5-10.1) Phosphorus Level 2.5 mg/dL (2.6-4.7) Magnesium Level 1.8 mg/dL (1.8-2.4) Troponin I Quantitative 72.121 ng/mL (0.000-0.055) Lactic Acid Level 1.7 mmol/L (0.4-2.0) Urine Collection Type U cath Urine Color Yellow Urine Clarity Clear Urine pH 7.5 Urine Specific [place] <=1.005 Urine Protein Negative mg/dL (NEG-TRACE) Urine Glucose (UA) Negative mg/dL (NEG) Urine Ketones (Stick) Negative mg/dL (NEG) Urine Blood Moderate (NEG) Urine Nitrite Negative (NEG) Urine Bilirubin Negative (NEG) Urine Urobilinogen Dipstick 0.2 mg/dL (0.2 mg/dL) Urine Leukocyte Esterase Negative (NEG) Urine RBC 11-20 /HPF (0-2) Urine WBC 0 /HPF (0-4) Urine Bacteria 0 /HPF (0-FEW) Urine Mucus Slight /LPF Test 04/18/17 08:05 04/18/17 08:10 04/18/17 08:30 04/18/17 11:50 Sodium Level 140 mmol/L (136-145) 137 mmol/L (136-145) Potassium Level 2.8 mmol/L (3.5-5.1) 3.1 mmol/L (3.5-5.1) Chloride Level 105 mmol/L (98-107) 103 mmol/L (98-107) Carbon Dioxide Level 25 mmol/L (21-32) 23 mmol/L (21-32) Anion Gap 10 (6-14) 11 (6-14) Blood Urea Nitrogen 7 mg/dL (8-26) 8 mg/dL (8-26) Creatinine 0.4 mg/dL (0.7-1.3) 0.6 mg/dL (0.7-1.3) Estimated GFR (Cockcroft-Gault) 213.3 133.6 Glucose Level 130 mg/dL (70-99) 259 mg/dL (70-99) Lactic Acid Level 1.6 mmol/L (0.4-2.0) Calcium Level 7.4 mg/dL (8.5-10.1) 6.6 mg/dL (8.5-10.1) Ionized Calcium 0.90 mmol/L (1.13-1.32) Phosphorus Level 1.7 mg/dL (2.6-4.7) 1.7 mg/dL (2.6-4.7) Magnesium Level 1.8 mg/dL (1.8-2.4) 1.6 mg/dL (1.8-2.4) Total Bilirubin 0.7 mg/dL (0.2-1.0) Direct Bilirubin 0.2 mg/dL (0.0-0.2) Aspartate Amino Transf (AST/SGOT) 391 U/L (15-37) Alanine Aminotransferase (ALT/SGPT) 90 U/L (16-63) Alkaline Phosphatase 78 U/L (46-116) Total Protein 6.5 g/dL (6.4-8.2) Albumin 3.0 g/dL (3.4-5.0) Lipase 64 U/L (73-393) Heparin Anti-Xa Act, Unfractionated 0.67 IU/mL (0.30-0.70) O2 Saturation 99 % (92-99) Arterial Blood pH 7.51 (7.35-7.45) Arterial Blood pH (Temp corrected) 7.61 Arterial Blood pCO2 at Patient Temp 24 mmHg (35-46) Arterial Blood pCO2 (Temp correct) 18 mmHg Arterial Blood pO2 at Patient Temp 401 mmHg (65-108) Arterial Blood pO2 (Temp corrected) 364 mmHg Arterial Blood HCO3 18 mmol/L (21-28) Arterial Blood Base Excess -2 mmol/L (-3-3) FiO2 100 Laboratory Tests Test 04/17/17 18:59 04/17/17 19:14 04/17/17 22:00 04/17/17 23:08 White Blood Count 16.3 x10^3/uL (4.0-11.0) 21.3 x10^3/uL (4.0-11.0) Red Blood Count 4.67 x10^6/uL (4.30-5.70) 4.84 x10^6/uL (4.30-5.70) Hemoglobin 16.6 g/dL (13.0-17.5) 17.3 g/dL (13.0-17.5) Hematocrit 49.3 % (39.0-53.0) 50.9 % (39.0-53.0) Mean Corpuscular Volume 106 fL (79-100) 105 fL (79-100) Mean Corpuscular Hemoglobin 36 pg (25-35) 36 pg (25-35) Mean Corpuscular Hemoglobin Concent 34 g/dL (31-37) 34 g/dL (31-37) Red Cell Distribution Width 14.1 % (11.5-14.5) 14.7 % (11.5-14.5) Platelet Count 186 x10^3/uL (140-400) 208 x10^3/uL (140-400) Neutrophils (%) (Auto) 58 % (31-73) Lymphocytes (%) (Auto) 33 % (24-48) Monocytes (%) (Auto) 6 % (0-9) Eosinophils (%) (Auto) 3 % (0-3) Basophils (%) (Auto) 1 % (0-3) Neutrophils # (Auto) 9.4 x10^3uL (1.8-7.7) Lymphocytes # (Auto) 5.3 x10^3/uL (1.0-4.8) Monocytes # (Auto) 1.0 x10^3/uL (0.0-1.1) Eosinophils # (Auto) 0.5 x10^3/uL (0.0-0.7) Basophils # (Auto) 0.1 x10^3/uL (0.0-0.2) Sodium Level 136 mmol/L (136-145) Potassium Level 3.3 mmol/L (3.5-5.1) Chloride Level 99 mmol/L (98-107) Carbon Dioxide Level 15 mmol/L (21-32) Anion Gap 22 (6-14) Blood Urea Nitrogen 9 mg/dL (8-26) Creatinine 0.7 mg/dL (0.7-1.3) Estimated GFR (Cockcroft-Gault) 111.8 Glucose Level 137 mg/dL (70-99) Calcium Level 8.6 mg/dL (8.5-10.1) Magnesium Level 2.2 mg/dL (1.8-2.4) Total Bilirubin 0.6 mg/dL (0.2-1.0) Direct Bilirubin 0.2 mg/dL (0.0-0.2) Aspartate Amino Transf (AST/SGOT) 72 U/L (15-37) Alanine Aminotransferase (ALT/SGPT) 50 U/L (16-63) Alkaline Phosphatase 78 U/L (46-116) Creatine Kinase 94 U/L (39-308) 1501 U/L (39-308) Creatine Kinase MB (Mass) 1.5 ng/mL (0.0-3.6) 215.0 ng/mL (0.0-3.6) Creatine Kinase MB Relative Index 1.6 % (0-4) 14.3 % (0-4) Troponin I Quantitative 0.176 ng/mL (0.000-0.055) UM-Duc-F-Type Natriuretic Peptide 679 pg/mL (0-124) Total Protein 6.9 g/dL (6.4-8.2) Albumin 3.4 g/dL (3.4-5.0) Lipase 112 U/L (73-393) Urine Color Yellow Urine Clarity Clear Urine pH 6.5 Urine Specific [place] <=1.005 Urine Protein 100 mg/dL (NEG-TRACE) Urine Glucose (UA) Negative mg/dL (NEG) Urine Ketones (Stick) Negative mg/dL (NEG) Urine Blood Trace (NEG) Urine Nitrite Negative (NEG) Urine Bilirubin Negative (NEG) Urine Urobilinogen Dipstick 0.2 mg/dL (0.2 mg/dL) Urine Leukocyte Esterase Negative (NEG) Urine RBC 1-2 /HPF (0-2) Urine WBC 0 /HPF (0-4) Urine Squamous Epithelial Cells Occ /LPF Urine Bacteria 0 /HPF (0-FEW) Urine Sperm Present /HPF Prothrombin Time 15.2 SEC (11.7-14.0) Prothromb Time International Ratio 1.3 (0.8-1.1) Activated Partial Thromboplast Time > 150 SEC (24-38) Heparin Anti-Xa Act, Unfractionated 0.58 IU/mL (0.30-0.70) Lactic Acid Level 4.3 mmol/L (0.4-2.0) Amylase Level 472 U/L (25-115) O2 Saturation 98 % (92-99) Arterial Blood pH 7.13 (7.35-7.45) Arterial Blood pH (Temp corrected) 7.18 Arterial Blood pCO2 at Patient Temp 57 mmHg (35-46) Arterial Blood pCO2 (Temp correct) 48 mmHg Arterial Blood pO2 at Patient Temp 157 mmHg (65-108) Arterial Blood pO2 (Temp corrected) 137 mmHg Arterial Blood HCO3 19 mmol/L (21-28) Arterial Blood Base Excess -11 mmol/L (-3-3) Test 04/17/17 23:39 04/18/17 02:25 04/18/17 02:35 04/18/17 06:30 Glucose (Fingerstick) 138 mg/dL (70-99) White Blood Count 20.9 x10^3/uL (4.0-11.0) Red Blood Count 4.98 x10^6/uL (4.30-5.70) Hemoglobin 17.3 g/dL (13.0-17.5) Hematocrit 51.6 % (39.0-53.0) Mean Corpuscular Volume 104 fL (79-100) Mean Corpuscular Hemoglobin 35 pg (25-35) Mean Corpuscular Hemoglobin Concent 34 g/dL (31-37) Red Cell Distribution Width 13.9 % (11.5-14.5) Platelet Count 169 x10^3/uL (140-400) Neutrophils (%) (Auto) 86 % (31-73) Lymphocytes (%) (Auto) 7 % (24-48) Monocytes (%) (Auto) 6 % (0-9) Eosinophils (%) (Auto) 0 % (0-3) Basophils (%) (Auto) 0 % (0-3) Neutrophils # (Auto) 17.9 x10^3uL (1.8-7.7) Lymphocytes # (Auto) 1.5 x10^3/uL (1.0-4.8) Monocytes # (Auto) 1.3 x10^3/uL (0.0-1.1) Eosinophils # (Auto) 0.0 x10^3/uL (0.0-0.7) Basophils # (Auto) 0.1 x10^3/uL (0.0-0.2) Segmented Neutrophils % 75 % (35-66) Band Neutrophils % 9 % (0-9) Lymphocytes % 11 % (24-48) Monocytes % 5 % (0-10) Platelet Estimate Adequate (ADEQUATE) Macrocytosis Present Prothrombin Time 14.3 SEC (11.7-14.0) Prothromb Time International Ratio 1.2 (0.8-1.1) Activated Partial Thromboplast Time > 150 SEC (24-38) Sodium Level 142 mmol/L (136-145) Potassium Level 3.3 mmol/L (3.5-5.1) Chloride Level 106 mmol/L (98-107) Carbon Dioxide Level 26 mmol/L (21-32) Anion Gap 10 (6-14) Blood Urea Nitrogen 8 mg/dL (8-26) Creatinine 0.4 mg/dL (0.7-1.3) Estimated GFR (Cockcroft-Gault) 213.3 Glucose Level 111 mg/dL (70-99) Calcium Level 6.8 mg/dL (8.5-10.1) Phosphorus Level 2.5 mg/dL (2.6-4.7) Magnesium Level 1.8 mg/dL (1.8-2.4) Troponin I Quantitative 72.121 ng/mL (0.000-0.055) Lactic Acid Level 1.7 mmol/L (0.4-2.0) Urine Collection Type U cath Urine Color Yellow Urine Clarity Clear Urine pH 7.5 Urine Specific [place] <=1.005 Urine Protein Negative mg/dL (NEG-TRACE) Urine Glucose (UA) Negative mg/dL (NEG) Urine Ketones (Stick) Negative mg/dL (NEG) Urine Blood Moderate (NEG) Urine Nitrite Negative (NEG) Urine Bilirubin Negative (NEG) Urine Urobilinogen Dipstick 0.2 mg/dL (0.2 mg/dL) Urine Leukocyte Esterase Negative (NEG) Urine RBC 11-20 /HPF (0-2) Urine WBC 0 /HPF (0-4) Urine Bacteria 0 /HPF (0-FEW) Urine Mucus Slight /LPF Test 04/18/17 08:05 04/18/17 08:10 04/18/17 08:30 04/18/17 11:50 Sodium Level 140 mmol/L (136-145) 137 mmol/L (136-145) Potassium Level 2.8 mmol/L (3.5-5.1) 3.1 mmol/L (3.5-5.1) Chloride Level 105 mmol/L (98-107) 103 mmol/L (98-107) Carbon Dioxide Level 25 mmol/L (21-32) 23 mmol/L (21-32) Anion Gap 10 (6-14) 11 (6-14) Blood Urea Nitrogen 7 mg/dL (8-26) 8 mg/dL (8-26) Creatinine 0.4 mg/dL (0.7-1.3) 0.6 mg/dL (0.7-1.3) Estimated GFR (Cockcroft-Gault) 213.3 133.6 Glucose Level 130 mg/dL (70-99) 259 mg/dL (70-99) Lactic Acid Level 1.6 mmol/L (0.4-2.0) Calcium Level 7.4 mg/dL (8.5-10.1) 6.6 mg/dL (8.5-10.1) Ionized Calcium 0.90 mmol/L (1.13-1.32) Phosphorus Level 1.7 mg/dL (2.6-4.7) 1.7 mg/dL (2.6-4.7) Magnesium Level 1.8 mg/dL (1.8-2.4) 1.6 mg/dL (1.8-2.4) Total Bilirubin 0.7 mg/dL (0.2-1.0) Direct Bilirubin 0.2 mg/dL (0.0-0.2) Aspartate Amino Transf (AST/SGOT) 391 U/L (15-37) Alanine Aminotransferase (ALT/SGPT) 90 U/L (16-63) Alkaline Phosphatase 78 U/L (46-116) Total Protein 6.5 g/dL (6.4-8.2) Albumin 3.0 g/dL (3.4-5.0) Lipase 64 U/L (73-393) Heparin Anti-Xa Act, Unfractionated 0.67 IU/mL (0.30-0.70) O2 Saturation 99 % (92-99) Arterial Blood pH 7.51 (7.35-7.45) Arterial Blood pH (Temp corrected) 7.61 Arterial Blood pCO2 at Patient Temp 24 mmHg (35-46) Arterial Blood pCO2 (Temp correct) 18 mmHg Arterial Blood pO2 at Patient Temp 401 mmHg (65-108) Arterial Blood pO2 (Temp corrected) 364 mmHg Arterial Blood HCO3 18 mmol/L (21-28) Arterial Blood Base Excess -2 mmol/L (-3-3) FiO2 100 Medications Current Medications Heparin Sodium (Porcine) (Heparin Sodium) 10,000 unit STK-MED ONCE .ROUTE ; Start 04/17/17 at 19:03; Stop 04/17/17 at 19:04; Status DC Heparin Sodium (Porcine) (Heparin Sodium) 4,000 unit 1X ONCE IV Last administered on 04/17/17t 19:05; Start 04/17/17 at 19:15; Stop 04/17/17 at 19:49; Status DC Sodium Chloride 1,000 ml @ 1,000 mls/hr Q1H IV Last administered on 04/17/17 19:07; Start 04/17/17 at 19:07; Stop 04/17/17 at 20:06; Status DC Midazolam HCl 100 ml @ As Directed STK-MED ONCE IV ; Start 04/17/17 at 19:15; Stop 04/17/17 at 19:16; Status DC Etomidate (Amidate) 20 mg STK-MED ONCE IV ; Start 04/17/17 at 19:15; Stop at 19:16; Status DC Succinylcholine Chloride (Anectine) 200 mg STK-MED ONCE .ROUTE ; Start 04/17/17 at 19:16; Stop 04/17/17 at 19:17; Status DC Heparin Sodium/ Sodium Chloride 1,500 ml @ As Directed STK-MED ONCE .ROUTE ; Start 04/17/17 at 19:24; Stop 04/17/17 at 19:25; Status DC Lidocaine HCl 20 ml STK-MED ONCE .ROUTE ; Start 04/17/17 at 19:24; Stop 04/17/17 at 19:25; Status DC Iodixanol (Visipaque 320) 100 ml STK-MED ONCE .ROUTE ; Start 04/17/17 at 19:24; Stop 04/17/17 at 19:25; Status DC Dopamine HCl/ Dextrose 250 ml @ 0 mls/hr CONT PRN IV SEE I/O RECORD Last administered on 04/17/17 19:32; Start 04/17/17 at 19:30; Stop 04/17/17 at 20:54; Status DC Dopamine HCl/ Dextrose 250 ml @ As Directed STK-MED ONCE IV ; Start 04/17/17 at 19:30; Stop 04/17/17 at 19:31; Status DC Ondansetron HCl (Zofran) 4 mg PRN Q8HRS PRN IV NAUSEA/VOMITING; Start 04/17/17 at 19:30; Stop 04/18/17 at 19:29 Sodium Chloride 1,000 ml @ 100 mls/hr Q10H IV Last administered on 04/18/17 12 :35; Start 04/17/17 at 19:30; Stop 04/18/17 at 19:29 Acetaminophen (Tylenol) 650 mg PRN Q4HRS PRN PO FEVER; Start 04/17/17 at 19:30; Stop 04/18/17 at 19:29 Heparin Sodium (Porcine) (Heparin Sodium) 10,000 unit STK-MED ONCE .ROUTE ; Start 04/17/17 at 20:16; Stop 04/17/17 at 20:17; Status DC Tirofiban/Sodium Chloride 0 ml @ As Directed STK-MED ONCE IV ; Start 04/17/17 at 20:16; Stop 04/17/17 at 20:17; Status DC Famotidine (Pepcid) 20 mg QHS IVP Last administered on 04/17/17 22:30; Start at 21:00 Etomidate (Amidate) 20 mg 1X ONCE IV Last administered on 04/17/17 19:00; Start 04/17/17 at 20:30; Stop 04/17/17 at 21:05; Status DC Succinylcholine Chloride (Anectine) 100 mg 1X ONCE IV Last administered on 04/17 19:00; Start 04/17/17 at 20:30; Stop 04/17/17 at 21:07; Status DC Lidocaine HCl/ Dextrose 500 ml @ 0 mls/hr 1X ONCE IV Last administered on 18:55; Start 04/17/17 at 20:30; Stop 04/17/17 at 21:08; Status DC Dopamine HCl/ Dextrose 250 ml @ 0 mls/hr CONT PRN IV SEE I/O RECORD Last administered on 04/18/17 03:31; Start 04/17/17 at 20:30 Heparin Sodium/ Dextrose 500 ml @ As Directed STK-MED ONCE IV ; Start 04/17/17 at 20:43; Stop 04/17/17 at 20:44; Status DC Heparin Sodium/ Dextrose 500 ml @ 0 mls/hr CONT PRN IV SEE I/O RECORD Last administered on 04/17/17 20:50; Start 04/17/17 at 20:45 Midazolam HCl (Versed) 5 mg 1X ONCE IV Last administered on 04/17/17 19:17; Start 04/17/17 at 21:00; Stop 04/17/17 at 21:07; Status DC Heparin Sodium (Porcine) (Heparin Sodium) 2,000 unit 1X ONCE IV Last administered on 04/17/17 20:59; Start 04/17/17 at 21:00; Stop 04/17/17 at 21:06; Status DC Iodixanol (Visipaque 320) 134 ml 1X ONCE IART Last administered on 04/17/17 20 :58; Start 04/17/17 at 21:00; Stop 04/17/17 at 21:04; Status DC Lidocaine HCl 20 ml 1X ONCE IJ Last administered on 04/17/17 20:58; Start 04/17 at 21:00; Stop 04/17/17 at 21:08; Status DC Fentanyl Citrate 30 ml @ As Directed STK-MED ONCE IV ; Start 04/17/17 at 21:09; Stop 04/17/17 at 21:10; Status DC Sodium Chloride 1,000 ml @ 1,000 mls/hr Q1H IV Last administered on 04/17/17 23:30; Start 04/17/17 at 21:30; Stop 04/18/17 at 03:42; Status DC Fentanyl Citrate (Fentanyl 2ml Vial) 25 mcg PRN Q30MIN PRN IV SED; Start at 21:30 Lorazepam (Ativan) 1 mg PRN Q30MIN PRN IV SEDATION; Start 04/17/17 at 21:30 Fentanyl Citrate 30 ml @ 2.5 mls/hr CONT PRN PRN IV IVF Last administered on 03:29; Start 04/17/17 at 21:30 Propofol 100 ml @ 0 mls/hr CONT PRN IV SEE I/O RECORD Last administered on 07:51; Start 04/17/17 at 21:30 Vecuronium [place] (Norcuron Bolus) DOSE AT 0.1 mg/kg PRN Q30MIN PRN IV SHIVERING Last administered on 04/18/17 06:04; Start 04/17/17 at 21:30 Meperidine HCl (Demerol) 12.5 mg PRN Q30MIN PRN IV SHIVERING Last administered on 04/18/17 04:17; Start 04/17/17 at 21:30; Stop 04/18/17 at 04:18; Status DC Multi-Ingred Cream/Lotion/Oil/ Oint (Artificial Tears Eye Oint) 1 balaji PRN Q6HRS PRN OU 0.5 INCH FOR DRY EYE; Start 04/17/17 at 21:30 Famotidine (Pepcid) 20 mg BID IVP Last administered on 04/18/17 11:40; Start at 09:00 Aspirin (Aspirin) 300 mg DAILY HI ; Start 04/18/17 at 09:00 Sodium Chloride (Normal Saline Flush) 3 ml QSHIFT PRN IV AFTER MEDS AND BLOOD DRAWS; Start 04/17/17 at 21:30 Acetaminophen (Tylenol) 650 mg Q6HRS NG ; Start 04/18/17 at 00:00; Stop 04/18/17 at 23:59 Acetaminophen (Acetaminophen Supp) 650 mg PRN Q6HRS PRN HI MILD PAIN / TEMP; Start 04/18/17 at 21:30 Acetaminophen (Tylenol) 650 mg PRN Q6HRS PRN NG MILD PAIN / TEMP; Start at 21:30 Info 1 ea DAILY PRN MC PER PROTOCOL; Start 04/19/17 at 21:30 Heparin Sodium/ Dextrose 500 ml @ 0 mls/hr CONT PRN IV SEE I/O RECORD; Start at 21:30 Heparin Sodium (Porcine) (Heparin Sodium) 1,450 unit PRN Q6HRS PRN IV FOR UFH LEVEL LESS THAN 0.2; Start 04/17/17 at 21:30 Sodium Chloride 1,000 ml @ 60 mls/hr [id number] IV ; Start 04/17/17 at 21:45 Midazolam HCl 100 ml @ 0 mls/hr CONT PRN IV SEE I/O RECORD; Start 04/17/17 at 22 :00 Sodium Bicarbonate 100 meq 1X ONCE IV Last administered on 04/18/17 02:02; Start 04/18/17 at 00:00; Stop 04/18/17 at 00:01; Status DC Amiodarone HCl 900 mg/Dextrose 518 ml @ 0 mls/hr 1X ONCE IV Last administered on 04/18/17 08:00; Start 04/18/17 at 08:00; Stop 04/18/17 at 08:01; Status DC Pneumococcal Polyvalent Vaccine (Do NOT chart on this placeholder) 1 each PRN DAILY PRN MC UNABLE TO RESPOND; Start 04/18/17 at 08:45 Amiodarone HCl 900 mg/Dextrose 518 ml @ 34.53 mls/ hr CONT PRN IV SEE I/O RECORD; Start 04/18/17 at 09:45 Potassium Chloride 50 ml @ 50 mls/hr 1X ONCE IV ; Start 04/18/17 at 10:30; Stop 04/18/17 at 10:30; Status DC Potassium Chloride 100 ml @ 100 mls/hr Q1H IV Last administered on 04/18/17t 11 :39; Start 04/18/17 at 10:30; Stop 04/18/17 at 12:29; Status DC Active Scripts Active Reported [No home meds] Vitals/I & O Vital Sign - Last 24 Hours 04/17/17 04/17/17 04/17/17 04/17/17 18:50 18:55 19:00 19:02 Pulse 118 108 98 Resp 12 12 12 B/P (MAP) 108/61 (77) 119/78 (92) 98/59 (72) Pulse Ox 96 98 98 100 O2 Delivery Bag Valve Mask Bag Valve Mask Bag Valve Mask Ventilator O2 Flow Rate 15.0 15.0 15.0 04/17/17 04/17/17 04/17/17 04/17/17 19:04 19:05 19:10 19:15 Temp 96.4 96.4 96.4 96.4 Pulse 98 106 98 Resp 20 20 B/P (MAP) 90/54 (66) 112/74 (87) Pulse Ox 100 100 100 O2 Delivery Bag Valve Mask Ventilator Ventilator O2 Flow Rate 15.0 04/17/17 04/17/17 04/17/17 04/17/17 19:15 19:20 19:25 19:30 Pulse 106 110 106 102 Resp 20 20 20 20 B/P (MAP) 106/66 (79) 90/60 (70) 84/55 (65) 86/56 (66) Pulse Ox 100 100 100 100 O2 Delivery Ventilator Ventilator Ventilator Ventilator 04/17/17 04/17/17 04/17/17 04/17/17 19:35 19:40 21:05 21:10 Pulse 106 93 Resp 20 20 B/P (MAP) 93/62 (72) 100/52 (68) Pulse Ox 100 100 100 O2 Delivery Ventilator Ventilator Ventilator Mechanical Ventilator 04/17/17 04/17/17 04/17/17 04/17/17 21:10 21:25 21:25 21:40 Temp 95.0 94.8 93.8 95.0 94.8 93.8 Pulse 71 71 72 Resp 20 20 20 B/P (MAP) 134/75 (94) 134/75 (94) 118/74 (89) Pulse Ox 100 O2 Delivery Ventilator Ventilator Mechanical Ventilator Ventilator 04/17/17 04/17/17 04/17/17 04/17/17 21:40 21:53 21:54 22:00 Resp 36 36 Pulse Ox 100 100 O2 Delivery Mechanical Ventilator Ventilator Mechanical Ventilator O2 Flow Rate 15.0 15.0 04/17/17 04/17/17 04/17/17 04/17/17 22:00 23:00 23:00 23:17 Temp 92.6 90.4 92.6 90.4 Pulse 62 71 Resp 20 20 B/P (MAP) 109/69 (82) 121/76 (91) Pulse Ox 97 100 O2 Delivery Ventilator Mechanical Ventilator Ventilator Ventilator 04/18/17 04/18/17 04/18/17 04/18/17 00:00 00:00 01:00 01:00 Temp 89.1 90.8 89.1 90.8 Pulse 71 60 Resp 20 20 B/P (MAP) 144/79 (100) 118/63 (81) O2 Delivery Mechanical Ventilator Ventilator Ventilator Mechanical Ventilator 04/18/17 04/18/17 04/18/17 04/18/17 01:11 02:00 03:00 03:22 Temp 91.3 91.6 91.3 91.6 Pulse 68 71 Resp 20 20 B/P (MAP) 122/68 (86) 135/76 (95) Pulse Ox 100 100 O2 Delivery Ventilator Ventilator Ventilator Ventilator 04/18/17 04/18/17 04/18/17 04/18/17 03:29 04:00 04:00 05:00 Temp 91.2 92.2 91.2 92.2 Pulse 65 63 Resp 24 24 B/P (MAP) 118/74 (89) 122/76 (91) Pulse Ox 100 100 O2 Delivery Mechanical Ventilator Ventilator Ventilator O2 Flow Rate 15.0 04/18/17 04/18/17 04/18/17 04/18/17 06:00 06:00 07:00 07:29 Temp 91.8 90.3 91.8 90.3 Pulse 66 59 Resp 24 20 B/P (MAP) 128/75 (92) 139/72 (94) Pulse Ox 100 100 100 100 O2 Delivery Ventilator Ventilator Ventilator Ventilator 04/18/17 04/18/17 04/18/17 04/18/17 08:00 08:00 08:35 09:00 Temp 89.7 88.1 89.7 88.1 Pulse 48 59 Resp 20 16 B/P (MAP) 158/52 (87) 116/48 (70) Pulse Ox 100 100 O2 Delivery Ventilator Mechanical Ventilator Ventilator Ventilator 04/18/17 04/18/17 04/18/17 04/18/17 09:09 10:00 11:00 11:05 Temp 83.5 84.6 83.5 84.6 Pulse 59 52 Resp 16 16 B/P (MAP) 122/52 (75) 140/56 (84) Pulse Ox 100 100 100 100 O2 Delivery Ventilator Ventilator Ventilator Ventilator 04/18/17 04/18/17 04/18/17 04/18/17 12:00 12:00 13:00 13:10 Temp 87.4 89.6 87.4 89.6 Pulse 58 62 Resp 20 16 B/P (MAP) 139/70 (93) 131/58 (82) Pulse Ox 100 100 100 O2 Delivery Mechanical Ventilator Ventilator Ventilator Ventilator Intake and Output 04/17/17 04/17/17 04/18/17 15:00 23:00 07:00 Intake Total 0 ml 3465 ml Output Total 1575 ml 2550 ml Balance -1575 ml 915 ml ANTHONY MARTI III DO Apr 18, 2017 13:54
[2017-04-18 14:31] LABS: HEMOGLOBIN 16.1 g/dL (13.0-17.5); RED BLOOD COUNT 4.6 x10^6/uL (4.30-5.70); RED CELL DISTRIBUTION WIDTH 13.7 % (11.5-14.5)
[2017-04-18 14:49] LABS: INR 1.4 (0.8-1.1); PROTHROMBIN TIME PATIENT 15.9 SEC (11.7-14.0)
[2017-04-18] MEDS ORDERED: ePHEDrine PF IN SALINE 50 MG/5 ML DISP.SYRIN IV ONE (14:56)
[2017-04-18 15:48] LABS: BODY TEMP ABG 92.3 DEG; CORRECTED PCO2 ABG 36 mmHg; CORRECTED PH ABG 7.36; CORRECTED PO2 ABG 107 mmHg; HCO3 ABG 21 mmol/L (21-28); PCO2 ABG 42 mmHg (35-46); PH ABG 7.31 (7.35-7.45); PO2 ABG 127 mmHg (65-108); SAT O2 ABG 98 % (92-99)
[2017-04-18 15:51] LABS: FIO2 ABG 40
[2017-04-18 16:41] LABS: CALCIUM 6.5 mg/dL (8.5-10.1); CREATININE 0.6 mg/dL (0.7-1.3); GFR 133.6; MAGNESIUM 1.7 mg/dL (1.8-2.4); PHOSPHORUS 2.5 mg/dL (2.6-4.7)
[2017-04-18 16:45] LABS: POTASSIUM 2.9 mmol/L (3.5-5.1)
[2017-04-18] MEDS: POTASSIUM CHLORIDE 20MEQ 50 ML IV SCH ×3 (17:08→19:23)
[2017-04-18] MEDS ORDERED: CALCIUM GLUCONATE 1,000 MG/10 ML VIAL. IV ONE (17:15)
[2017-04-18] MEDS ORDERED: MAGNESIUM SULFATE 1GM 100 ML IV ONE (17:30)
--- NOTE | 2017-04-18 17:39 | PDOC2 ---
CONSULT Date of Consult Date of Consult DATE: 04/18/17 TIME: 17:24 Reason for Consult Reason for Consult: 3 vessel disease with VF arrest Referring Physician Referring Physician: Dr. Lior Valdivia Identification/Chief Complaint Chief Complaint CAD; VF arrest Problems: Source Source: Chart review History of Present Illness Reason for Visit: 71 year old male who collapsed at home after working outside yesterday ; reportedly with c/o not feeling well. Found by with EMS contacted and CPR attempted. EMS found patient in VF with shock given X 2 en route and ROSC obtained. Unresponsive on arrival in ER; intubated. 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 Currently sedated, intubated and cooling in ICU. To start re -warming about 21-2200 tonight. Past Medical History Cardiovascular: HTN Past Surgical History Past Surgical History: Other (unknown ) Family History Family History: Hypertension, Family History Unknown Social History No ALCOHOL: none Drugs: None Lives: with Family Current Problem List Problem List Problems Medical Problems: (1) STEMI (ST elevation myocardial infarction) Status: Acute Current Medications Current Medications Current Medications Heparin Sodium (Porcine) (Heparin Sodium) 10,000 unit STK-MED ONCE .ROUTE ; Start 04/17/17 at 19:03; Stop 04/17/17 at 19:04; Status DC Heparin Sodium (Porcine) (Heparin Sodium) 4,000 unit 1X ONCE IV Last administered on 04/17/17 19:05; Start 04/17/17 at 19:15; Stop 04/17/17 at 19:49; Status DC Sodium Chloride 1,000 ml @ 1,000 mls/hr Q1H IV Last administered on 04/17/17 19:07; Start 04/17/17 at 19:07; Stop 04/17/17 at 20:06; Status DC Midazolam HCl 100 ml @ As Directed STK-MED ONCE IV ; Start 04/17/17 at 19:15; Stop 04/17/17 at 19:16; Status DC Etomidate (Amidate) 20 mg STK-MED ONCE IV ; Start 04/17/17 at 19:15; Stop at 19:16; Status DC Succinylcholine Chloride (Anectine) 200 mg STK-MED ONCE .ROUTE ; Start 04/17/17 at 19:16; Stop 04/17/17 at 19:17; Status DC Heparin Sodium/ Sodium Chloride 1,500 ml @ As Directed STK-MED ONCE .ROUTE ; Start 04/17/17 at 19:24; Stop 04/17/17 at 19:25; Status DC Lidocaine HCl 20 ml STK-MED ONCE .ROUTE ; Start 04/17/17 at 19:24; Stop 04/17/17 at 19:25; Status DC Iodixanol (Visipaque 320) 100 ml STK-MED ONCE .ROUTE ; Start 04/17/17 at 19:24; Stop 04/17/17 at 19:25; Status DC Dopamine HCl/ Dextrose 250 ml @ 0 mls/hr CONT PRN IV SEE I/O RECORD Last administered on 04/17/17 19:32; Start 04/17/17 at 19:30; Stop 04/17/17 at 20:54; Status DC Dopamine HCl/ Dextrose 250 ml @ As Directed STK-MED ONCE IV ; Start 04/17/17 at 19:30; Stop 04/17/17 at 19:31; Status DC Ondansetron HCl (Zofran) 4 mg PRN Q8HRS PRN IV NAUSEA/VOMITING; Start 04/17/17 at 19:30; Stop 04/18/17 at 19:29 Sodium Chloride 1,000 ml @ 100 mls/hr Q10H IV Last administered on 04/18/17 12 :35; Start 04/17/17 at 19:30; Stop 04/18/17 at 19:29 Acetaminophen (Tylenol) 650 mg PRN Q4HRS PRN PO FEVER; Start 04/17/17 at 19:30; Stop 04/18/17 at 19:29 Heparin Sodium (Porcine) (Heparin Sodium) 10,000 unit STK-MED ONCE .ROUTE ; Start 04/17/17 at 20:16; Stop 04/17/17 at 20:17; Status DC Tirofiban/Sodium Chloride 0 ml @ As Directed STK-MED ONCE IV ; Start 04/17/17 at 20:16; Stop 04/17/17 at 20:17; Status DC Famotidine (Pepcid) 20 mg QHS IVP Last administered on 04/17/17 22:30; Start at 21:00 Etomidate (Amidate) 20 mg 1X ONCE IV Last administered on 04/17/17 19:00; Start 04/17/17 at 20:30; Stop 04/17/17 at 21:05; Status DC Succinylcholine Chloride (Anectine) 100 mg 1X ONCE IV Last administered on 04/17 19:00; Start 04/17/17 at 20:30; Stop 04/17/17 at 21:07; Status DC Lidocaine HCl/ Dextrose 500 ml @ 0 mls/hr 1X ONCE IV Last administered on 18:55; Start 04/17/17 at 20:30; Stop 04/17/17 at 21:08; Status DC Dopamine HCl/ Dextrose 250 ml @ 0 mls/hr CONT PRN IV SEE I/O RECORD Last administered on 04/18/17 15:25; Start 04/17/17 at 20:30 Heparin Sodium/ Dextrose 500 ml @ As Directed STK-MED ONCE IV ; Start 04/17/17 at 20:43; Stop 04/17/17 at 20:44; Status DC Heparin Sodium/ Dextrose 500 ml @ 0 mls/hr CONT PRN IV SEE I/O RECORD Last administered on 04/17/17 20:50; Start 04/17/17 at 20:45 Midazolam HCl (Versed) 5 mg 1X ONCE IV Last administered on 04/17/17 19:17; Start 04/17/17 at 21:00; Stop 04/17/17 at 21:07; Status DC Heparin Sodium (Porcine) (Heparin Sodium) 2,000 unit 1X ONCE IV Last administered on 04/17/17 20:59; Start 04/17/17 at 21:00; Stop 04/17/17 at 21:06; Status DC Iodixanol (Visipaque 320) 134 ml 1X ONCE IART Last administered on 04/17/17 20 :58; Start 04/17/17 at 21:00; Stop 04/17/17 at 21:04; Status DC Lidocaine HCl 20 ml 1X ONCE IJ Last administered on 04/17/17 20:58; Start 04/17 at 21:00; Stop 04/17/17 at 21:08; Status DC Fentanyl Citrate 30 ml @ As Directed STK-MED ONCE IV ; Start 04/17/17 at 21:09; Stop 04/17/17 at 21:10; Status DC Sodium Chloride 1,000 ml @ 1,000 mls/hr Q1H IV Last administered on 04/17/17 23:30; Start 04/17/17 at 21:30; Stop 04/18/17 at 03:42; Status DC Fentanyl Citrate (Fentanyl 2ml Vial) 25 mcg PRN Q30MIN PRN IV SED; Start at 21:30 Lorazepam (Ativan) 1 mg PRN Q30MIN PRN IV SEDATION; Start 04/17/17 at 21:30 Fentanyl Citrate 30 ml @ 2.5 mls/hr CONT PRN PRN IV IVF Last administered on 15:51; Start 04/17/17 at 21:30 Propofol 100 ml @ 0 mls/hr CONT PRN IV SEE I/O RECORD Last administered on 17:08; Start 04/17/17 at 21:30 Vecuronium [place] (Norcuron Bolus) DOSE AT 0.1 mg/kg PRN Q30MIN PRN IV SHIVERING Last administered on 04/18/17 16:00; Start 04/17/17 at 21:30 Meperidine HCl (Demerol) 12.5 mg PRN Q30MIN PRN IV SHIVERING Last administered on 04/18/17 04:17; Start 04/17/17 at 21:30; Stop 04/18/17 at 04:18; Status DC Multi-Ingred Cream/Lotion/Oil/ Oint (Artificial Tears Eye Oint) 1 balaji PRN Q6HRS PRN OU 0.5 INCH FOR DRY EYE; Start 04/17/17 at 21:30 Famotidine (Pepcid) 20 mg BID IVP Last administered on 04/18/17 11:40; Start at 09:00 Aspirin (Aspirin) 300 mg DAILY [place] ; Start 04/18/17 at 09:00 Sodium Chloride (Normal Saline Flush) 3 ml QSHIFT PRN IV AFTER MEDS AND BLOOD DRAWS; Start 04/17/17 at 21:30 Acetaminophen (Tylenol) 650 mg Q6HRS NG ; Start 04/18/17 at 00:00; Stop 04/18/17 at 23:59 Acetaminophen (Acetaminophen Supp) 650 mg PRN Q6HRS PRN NJ MILD PAIN / TEMP; Start 04/18/17 at 21:30 Acetaminophen (Tylenol) 650 mg PRN Q6HRS PRN NG MILD PAIN / TEMP; Start at 21:30 Info 1 ea DAILY PRN MC PER PROTOCOL; Start 04/19/17 at 21:30 Heparin Sodium/ Dextrose 500 ml @ 0 mls/hr CONT PRN IV SEE I/O RECORD; Start at 21:30 Heparin Sodium (Porcine) (Heparin Sodium) 1,450 unit PRN Q6HRS PRN IV FOR UFH LEVEL LESS THAN 0.2; Start 04/17/17 at 21:30 Sodium Chloride 1,000 ml @ 60 mls/hr [id number] IV ; Start 04/17/17 at 21:45 Midazolam HCl 100 ml @ 0 mls/hr CONT PRN IV SEE I/O RECORD; Start 04/17/17 at 22 :00 Sodium Bicarbonate 100 meq 1X ONCE IV Last administered on 04/18/17 02:02; Start 04/18/17 at 00:00; Stop 04/18/17 at 00:01; Status DC Amiodarone HCl 900 mg/Dextrose 518 ml @ 0 mls/hr 1X ONCE IV Last administered on 04/18/17 08:00; Start 04/18/17 at 08:00; Stop 04/18/17 at 08:01; Status DC Pneumococcal Polyvalent Vaccine (Do NOT chart on this placeholder) 1 each PRN DAILY PRN MC UNABLE TO RESPOND; Start 04/18/17 at 08:45 Amiodarone HCl 900 mg/Dextrose 518 ml @ 34.53 mls/ hr CONT PRN IV SEE I/O RECORD; Start 04/18/17 at 09:45 Potassium Chloride 50 ml @ 50 mls/hr 1X ONCE IV ; Start 04/18/17 at 10:30; Stop 04/18/17 at 10:30; Status DC Potassium Chloride 100 ml @ 100 mls/hr Q1H IV Last administered on 04/18/17 11 :39; Start 04/18/17 at 10:30; Stop 04/18/17 at 12:29; Status DC Ephedrine Sulfate 50 mg STK-MED ONCE IV ; Start 04/18/17 at 14:56; Stop 04/18/17 at 14:57; Status DC Potassium Chloride 50 ml @ 50 mls/hr Q1H IV Last administered on 04/18/17 17:08 ; Start 04/18/17 at 17:30; Stop 04/18/17 at 20:29 Magnesium Sulfate/ Dextrose 100 ml @ 100 mls/hr 1X ONCE IV Last administered on 04/18/17 17:10; Start 04/18/17 at 17:30; Stop 04/18/17 at 18:29 Calcium Gluconate (Calcium Gluconate) 1,000 mg 1X ONCE IV Last administered on 04/18/17 17:08; Start 04/18/17 at 17:15; Stop 04/18/17 at 17:16; Status DC Epinephrine HCl (EPINEPHrine SYRINGE) 1 mg STK-MED ONCE .ROUTE ; Start 04/17/17 at 17:03; Stop 04/18/17 at 17:03; Status DC Active Scripts Active Reported [No home meds] Allergies Allergies: Coded Allergies: Penicillins (Verified Allergy, Intermediate, 04/17/17) ROS Review of System unobtainable due to sedation Physical Exam General: Other (sedated/vent) HEENT: Atraumatic Lungs: Other (diminished anteriorly) Heart: Normal S1, Normal S2 Abdomen: Soft Extremities: No edema, Other (1+ left DP and right DP by Doppler) Skin: No rashes Neuro: Other (unable to assess due to sedation ) Psych/Mental Status: Other (NATALIE) MUSCULOSKELETAL: No deformity Vitals VITALS Vital Signs Date Time Temp Pulse Resp B/P (MAP) Pulse Ox O2 Delivery O2 Flow Rate FiO2 04/18/17 16:59 100 Ventilator 04/18/17 15:00 92.2 60 16 136/66 (89) 92.2 04/18/17 03:29 15.0 Labs Labs Laboratory Tests Test 04/17/17 18:59 04/17/17 19:14 04/17/17 22:00 04/17/17 23:08 White Blood Count 16.3 x10^3/uL (4.0-11.0) 21.3 x10^3/uL (4.0-11.0) Red Blood Count 4.67 x10^6/uL (4.30-5.70) 4.84 x10^6/uL (4.30-5.70) Hemoglobin 16.6 g/dL (13.0-17.5) 17.3 g/dL (13.0-17.5) Hematocrit 49.3 % (39.0-53.0) 50.9 % (39.0-53.0) Mean Corpuscular Volume 106 fL (79-100) 105 fL (79-100) Mean Corpuscular Hemoglobin 36 pg (25-35) 36 pg (25-35) Mean Corpuscular Hemoglobin Concent 34 g/dL (31-37) 34 g/dL (31-37) Red Cell Distribution Width 14.1 % (11.5-14.5) 14.7 % (11.5-14.5) Platelet Count 186 x10^3/uL (140-400) 208 x10^3/uL (140-400) Neutrophils (%) (Auto) 58 % (31-73) Lymphocytes (%) (Auto) 33 % (24-48) Monocytes (%) (Auto) 6 % (0-9) Eosinophils (%) (Auto) 3 % (0-3) Basophils (%) (Auto) 1 % (0-3) Neutrophils # (Auto) 9.4 x10^3uL (1.8-7.7) Lymphocytes # (Auto) 5.3 x10^3/uL (1.0-4.8) Monocytes # (Auto) 1.0 x10^3/uL (0.0-1.1) Eosinophils # (Auto) 0.5 x10^3/uL (0.0-0.7) Basophils # (Auto) 0.1 x10^3/uL (0.0-0.2) Sodium Level 136 mmol/L (136-145) Potassium Level 3.3 mmol/L (3.5-5.1) Chloride Level 99 mmol/L (98-107) Carbon Dioxide Level 15 mmol/L (21-32) Anion Gap 22 (6-14) Blood Urea Nitrogen 9 mg/dL (8-26) Creatinine 0.7 mg/dL (0.7-1.3) Estimated GFR (Cockcroft-Gault) 111.8 Glucose Level 137 mg/dL (70-99) Calcium Level 8.6 mg/dL (8.5-10.1) Magnesium Level 2.2 mg/dL (1.8-2.4) Total Bilirubin 0.6 mg/dL (0.2-1.0) Direct Bilirubin 0.2 mg/dL (0.0-0.2) Aspartate Amino Transf (AST/SGOT) 72 U/L (15-37) Alanine Aminotransferase (ALT/SGPT) 50 U/L (16-63) Alkaline Phosphatase 78 U/L (46-116) Creatine Kinase 94 U/L (39-308) 1501 U/L (39-308) Creatine Kinase MB (Mass) 1.5 ng/mL (0.0-3.6) 215.0 ng/mL (0.0-3.6) Creatine Kinase MB Relative Index 1.6 % (0-4) 14.3 % (0-4) Troponin I Quantitative 0.176 ng/mL (0.000-0.055) ME-Igd-B-Type Natriuretic Peptide 679 pg/mL (0-124) Total Protein 6.9 g/dL (6.4-8.2) Albumin 3.4 g/dL (3.4-5.0) Lipase 112 U/L (73-393) Urine Color Yellow Urine Clarity Clear Urine pH 6.5 Urine Specific Grand Chain <=1.005 Urine Protein 100 mg/dL (NEG-TRACE) Urine Glucose (UA) Negative mg/dL (NEG) Urine Ketones (Stick) Negative mg/dL (NEG) Urine Blood Trace (NEG) Urine Nitrite Negative (NEG) Urine Bilirubin Negative (NEG) Urine Urobilinogen Dipstick 0.2 mg/dL (0.2 mg/dL) Urine Leukocyte Esterase Negative (NEG) Urine RBC 1-2 /HPF (0-2) Urine WBC 0 /HPF (0-4) Urine Squamous Epithelial Cells Occ /LPF Urine Bacteria 0 /HPF (0-FEW) Urine Sperm Present /HPF Prothrombin Time 15.2 SEC (11.7-14.0) Prothromb Time International Ratio 1.3 (0.8-1.1) Activated Partial Thromboplast Time > 150 SEC (24-38) Heparin Anti-Xa Act, Unfractionated 0.58 IU/mL (0.30-0.70) Lactic Acid Level 4.3 mmol/L (0.4-2.0) Amylase Level 472 U/L (25-115) O2 Saturation 98 % (92-99) Arterial Blood pH 7.13 (7.35-7.45) Arterial Blood pH (Temp corrected) 7.18 Arterial Blood pCO2 at Patient Temp 57 mmHg (35-46) Arterial Blood pCO2 (Temp correct) 48 mmHg Arterial Blood pO2 at Patient Temp 157 mmHg (65-108) Arterial Blood pO2 (Temp corrected) 137 mmHg Arterial Blood HCO3 19 mmol/L (21-28) Arterial Blood Base Excess -11 mmol/L (-3-3) Test 04/17/17 23:39 04/18/17 02:25 04/18/17 02:35 04/18/17 06:30 Glucose (Fingerstick) 138 mg/dL (70-99) White Blood Count 20.9 x10^3/uL (4.0-11.0) Red Blood Count 4.98 x10^6/uL (4.30-5.70) Hemoglobin 17.3 g/dL (13.0-17.5) Hematocrit 51.6 % (39.0-53.0) Mean Corpuscular Volume 104 fL (79-100) Mean Corpuscular Hemoglobin 35 pg (25-35) Mean Corpuscular Hemoglobin Concent 34 g/dL (31-37) Red Cell Distribution Width 13.9 % (11.5-14.5) Platelet Count 169 x10^3/uL (140-400) Neutrophils (%) (Auto) 86 % (31-73) Lymphocytes (%) (Auto) 7 % (24-48) Monocytes (%) (Auto) 6 % (0-9) Eosinophils (%) (Auto) 0 % (0-3) Basophils (%) (Auto) 0 % (0-3) Neutrophils # (Auto) 17.9 x10^3uL (1.8-7.7) Lymphocytes # (Auto) 1.5 x10^3/uL (1.0-4.8) Monocytes # (Auto) 1.3 x10^3/uL (0.0-1.1) Eosinophils # (Auto) 0.0 x10^3/uL (0.0-0.7) Basophils # (Auto) 0.1 x10^3/uL (0.0-0.2) Segmented Neutrophils % 75 % (35-66) Band Neutrophils % 9 % (0-9) Lymphocytes % 11 % (24-48) Monocytes % 5 % (0-10) Platelet Estimate Adequate (ADEQUATE) Macrocytosis Present Prothrombin Time 14.3 SEC (11.7-14.0) Prothromb Time International Ratio 1.2 (0.8-1.1) Activated Partial Thromboplast Time > 150 SEC (24-38) Sodium Level 142 mmol/L (136-145) Potassium Level 3.3 mmol/L (3.5-5.1) Chloride Level 106 mmol/L (98-107) Carbon Dioxide Level 26 mmol/L (21-32) Anion Gap 10 (6-14) Blood Urea Nitrogen 8 mg/dL (8-26) Creatinine 0.4 mg/dL (0.7-1.3) Estimated GFR (Cockcroft-Gault) 213.3 Glucose Level 111 mg/dL (70-99) Calcium Level 6.8 mg/dL (8.5-10.1) Phosphorus Level 2.5 mg/dL (2.6-4.7) Magnesium Level 1.8 mg/dL (1.8-2.4) Troponin I Quantitative 72.121 ng/mL (0.000-0.055) Lactic Acid Level 1.7 mmol/L (0.4-2.0) Urine Collection Type U cath Urine Color Yellow Urine Clarity Clear Urine pH 7.5 Urine Specific Grand Chain <=1.005 Urine Protein Negative mg/dL (NEG-TRACE) Urine Glucose (UA) Negative mg/dL (NEG) Urine Ketones (Stick) Negative mg/dL (NEG) Urine Blood Moderate (NEG) Urine Nitrite Negative (NEG) Urine Bilirubin Negative (NEG) Urine Urobilinogen Dipstick 0.2 mg/dL (0.2 mg/dL) Urine Leukocyte Esterase Negative (NEG) Urine RBC 11-20 /HPF (0-2) Urine WBC 0 /HPF (0-4) Urine Bacteria 0 /HPF (0-FEW) Urine Mucus Slight /LPF Test 04/18/17 08:05 04/18/17 08:10 04/18/17 08:30 04/18/17 11:50 Sodium Level 140 mmol/L (136-145) 137 mmol/L (136-145) Potassium Level 2.8 mmol/L (3.5-5.1) 3.1 mmol/L (3.5-5.1) Chloride Level 105 mmol/L (98-107) 103 mmol/L (98-107) Carbon Dioxide Level 25 mmol/L (21-32) 23 mmol/L (21-32) Anion Gap 10 (6-14) 11 (6-14) Blood Urea Nitrogen 7 mg/dL (8-26) 8 mg/dL (8-26) Creatinine 0.4 mg/dL (0.7-1.3) 0.6 mg/dL (0.7-1.3) Estimated GFR (Cockcroft-Gault) 213.3 133.6 Glucose Level 130 mg/dL (70-99) 259 mg/dL (70-99) Lactic Acid Level 1.6 mmol/L (0.4-2.0) Calcium Level 7.4 mg/dL (8.5-10.1) 6.6 mg/dL (8.5-10.1) Ionized Calcium 0.90 mmol/L (1.13-1.32) Phosphorus Level 1.7 mg/dL (2.6-4.7) 1.7 mg/dL (2.6-4.7) Magnesium Level 1.8 mg/dL (1.8-2.4) 1.6 mg/dL (1.8-2.4) Total Bilirubin 0.7 mg/dL (0.2-1.0) Direct Bilirubin 0.2 mg/dL (0.0-0.2) Aspartate Amino Transf (AST/SGOT) 391 U/L (15-37) Alanine Aminotransferase (ALT/SGPT) 90 U/L (16-63) Alkaline Phosphatase 78 U/L (46-116) Total Protein 6.5 g/dL (6.4-8.2) Albumin 3.0 g/dL (3.4-5.0) Lipase 64 U/L (73-393) Heparin Anti-Xa Act, Unfractionated 0.67 IU/mL (0.30-0.70) O2 Saturation 99 % (92-99) Arterial Blood pH 7.51 (7.35-7.45) Arterial Blood pH (Temp corrected) 7.61 Arterial Blood pCO2 at Patient Temp 24 mmHg (35-46) Arterial Blood pCO2 (Temp correct) 18 mmHg Arterial Blood pO2 at Patient Temp 401 mmHg (65-108) Arterial Blood pO2 (Temp corrected) 364 mmHg Arterial Blood HCO3 18 mmol/L (21-28) Arterial Blood Base Excess -2 mmol/L (-3-3) FiO2 100 Test 04/18/17 14:20 04/18/17 15:45 04/18/17 16:20 White Blood Count 14.0 x10^3/uL (4.0-11.0) Red Blood Count 4.60 x10^6/uL (4.30-5.70) Hemoglobin 16.1 g/dL (13.0-17.5) Hematocrit 48.0 % (39.0-53.0) Mean Corpuscular Volume 104 fL (79-100) Mean Corpuscular Hemoglobin 35 pg (25-35) Mean Corpuscular Hemoglobin Concent 34 g/dL (31-37) Red Cell Distribution Width 13.7 % (11.5-14.5) Platelet Count 132 x10^3/uL (140-400) Prothrombin Time 15.9 SEC (11.7-14.0) Prothromb Time International Ratio 1.4 (0.8-1.1) Heparin Anti-Xa Act, Unfractionated 0.64 IU/mL (0.30-0.70) Lactic Acid Level 2.3 mmol/L (0.4-2.0) O2 Saturation 98 % (92-99) Arterial Blood pH 7.31 (7.35-7.45) Arterial Blood pH (Temp corrected) 7.36 Arterial Blood pCO2 at Patient Temp 42 mmHg (35-46) Arterial Blood pCO2 (Temp correct) 36 mmHg Arterial Blood pO2 at Patient Temp 127 mmHg (65-108) Arterial Blood pO2 (Temp corrected) 107 mmHg Arterial Blood HCO3 21 mmol/L (21-28) Arterial Blood Base Excess -5 mmol/L (-3-3) FiO2 40 Sodium Level 142 mmol/L (136-145) Potassium Level 2.9 mmol/L (3.5-5.1) Chloride Level 110 mmol/L (98-107) Carbon Dioxide Level 23 mmol/L (21-32) Anion Gap 9 (6-14) Blood Urea Nitrogen 8 mg/dL (8-26) Creatinine 0.6 mg/dL (0.7-1.3) Estimated GFR (Cockcroft-Gault) 133.6 Glucose Level 115 mg/dL (70-99) Calcium Level 6.5 mg/dL (8.5-10.1) Phosphorus Level 2.5 mg/dL (2.6-4.7) Magnesium Level 1.7 mg/dL (1.8-2.4) Laboratory Tests Test 04/17/17 18:59 04/17/17 19:14 04/17/17 22:00 04/17/17 23:08 White Blood Count 16.3 x10^3/uL (4.0-11.0) 21.3 x10^3/uL (4.0-11.0) Red Blood Count 4.67 x10^6/uL (4.30-5.70) 4.84 x10^6/uL (4.30-5.70) Hemoglobin 16.6 g/dL (13.0-17.5) 17.3 g/dL (13.0-17.5) Hematocrit 49.3 % (39.0-53.0) 50.9 % (39.0-53.0) Mean Corpuscular Volume 106 fL (79-100) 105 fL (79-100) Mean Corpuscular Hemoglobin 36 pg (25-35) 36 pg (25-35) Mean Corpuscular Hemoglobin Concent 34 g/dL (31-37) 34 g/dL (31-37) Red Cell Distribution Width 14.1 % (11.5-14.5) 14.7 % (11.5-14.5) Platelet Count 186 x10^3/uL (140-400) 208 x10^3/uL (140-400) Neutrophils (%) (Auto) 58 % (31-73) Lymphocytes (%) (Auto) 33 % (24-48) Monocytes (%) (Auto) 6 % (0-9) Eosinophils (%) (Auto) 3 % (0-3) Basophils (%) (Auto) 1 % (0-3) Neutrophils # (Auto) 9.4 x10^3uL (1.8-7.7) Lymphocytes # (Auto) 5.3 x10^3/uL (1.0-4.8) Monocytes # (Auto) 1.0 x10^3/uL (0.0-1.1) Eosinophils # (Auto) 0.5 x10^3/uL (0.0-0.7) Basophils # (Auto) 0.1 x10^3/uL (0.0-0.2) Sodium Level 136 mmol/L (136-145) Potassium Level 3.3 mmol/L (3.5-5.1) Chloride Level 99 mmol/L (98-107) Carbon Dioxide Level 15 mmol/L (21-32) Anion Gap 22 (6-14) Blood Urea Nitrogen 9 mg/dL (8-26) Creatinine 0.7 mg/dL (0.7-1.3) Estimated GFR (Cockcroft-Gault) 111.8 Glucose Level 137 mg/dL (70-99) Calcium Level 8.6 mg/dL (8.5-10.1) Magnesium Level 2.2 mg/dL (1.8-2.4) Total Bilirubin 0.6 mg/dL (0.2-1.0) Direct Bilirubin 0.2 mg/dL (0.0-0.2) Aspartate Amino Transf (AST/SGOT) 72 U/L (15-37) Alanine Aminotransferase (ALT/SGPT) 50 U/L (16-63) Alkaline Phosphatase 78 U/L (46-116) Creatine Kinase 94 U/L (39-308) 1501 U/L (39-308) Creatine Kinase MB (Mass) 1.5 ng/mL (0.0-3.6) 215.0 ng/mL (0.0-3.6) Creatine Kinase MB Relative Index 1.6 % (0-4) 14.3 % (0-4) Troponin I Quantitative 0.176 ng/mL (0.000-0.055) [id number]-Buv-[id number]-Type Natriuretic Peptide 679 pg/mL (0-124) Total Protein 6.9 g/dL (6.4-8.2) Albumin 3.4 g/dL (3.4-5.0) Lipase 112 U/L (73-393) Urine Color Yellow Urine Clarity Clear Urine pH 6.5 Urine Specific Grand Chain <=1.005 Urine Protein 100 mg/dL (NEG-TRACE) Urine Glucose (UA) Negative mg/dL (NEG) Urine Ketones (Stick) Negative mg/dL (NEG) Urine Blood Trace (NEG) Urine Nitrite Negative (NEG) Urine Bilirubin Negative (NEG) Urine Urobilinogen Dipstick 0.2 mg/dL (0.2 mg/dL) Urine Leukocyte Esterase Negative (NEG) Urine RBC 1-2 /HPF (0-2) Urine WBC 0 /HPF (0-4) Urine Squamous Epithelial Cells Occ /LPF Urine Bacteria 0 /HPF (0-FEW) Urine Sperm Present /HPF Prothrombin Time 15.2 SEC (11.7-14.0) Prothromb Time International Ratio 1.3 (0.8-1.1) Activated Partial Thromboplast Time > 150 SEC (24-38) Heparin Anti-Xa Act, Unfractionated 0.58 IU/mL (0.30-0.70) Lactic Acid Level 4.3 mmol/L (0.4-2.0) Amylase Level 472 U/L (25-115) O2 Saturation 98 % (92-99) Arterial Blood pH 7.13 (7.35-7.45) Arterial Blood pH (Temp corrected) 7.18 Arterial Blood pCO2 at Patient Temp 57 mmHg (35-46) Arterial Blood pCO2 (Temp correct) 48 mmHg Arterial Blood pO2 at Patient Temp 157 mmHg (65-108) Arterial Blood pO2 (Temp corrected) 137 mmHg Arterial Blood HCO3 19 mmol/L (21-28) Arterial Blood Base Excess -11 mmol/L (-3-3) Test 04/17/17 23:39 04/18/17 02:25 04/18/17 02:35 04/18/17 06:30 Glucose (Fingerstick) 138 mg/dL (70-99) White Blood Count 20.9 x10^3/uL (4.0-11.0) Red Blood Count 4.98 x10^6/uL (4.30-5.70) Hemoglobin 17.3 g/dL (13.0-17.5) Hematocrit 51.6 % (39.0-53.0) Mean Corpuscular Volume 104 fL (79-100) Mean Corpuscular Hemoglobin 35 pg (25-35) Mean Corpuscular Hemoglobin Concent 34 g/dL (31-37) Red Cell Distribution Width 13.9 % (11.5-14.5) Platelet Count 169 x10^3/uL (140-400) Neutrophils (%) (Auto) 86 % (31-73) Lymphocytes (%) (Auto) 7 % (24-48) Monocytes (%) (Auto) 6 % (0-9) Eosinophils (%) (Auto) 0 % (0-3) Basophils (%) (Auto) 0 % (0-3) Neutrophils # (Auto) 17.9 x10^3uL (1.8-7.7) Lymphocytes # (Auto) 1.5 x10^3/uL (1.0-4.8) Monocytes # (Auto) 1.3 x10^3/uL (0.0-1.1) Eosinophils # (Auto) 0.0 x10^3/uL (0.0-0.7) Basophils # (Auto) 0.1 x10^3/uL (0.0-0.2) Segmented Neutrophils % 75 % (35-66) Band Neutrophils % 9 % (0-9) Lymphocytes % 11 % (24-48) Monocytes % 5 % (0-10) Platelet Estimate Adequate (ADEQUATE) Macrocytosis Present Prothrombin Time 14.3 SEC (11.7-14.0) Prothromb Time International Ratio 1.2 (0.8-1.1) Activated Partial Thromboplast Time > 150 SEC (24-38) Sodium Level 142 mmol/L (136-145) Potassium Level 3.3 mmol/L (3.5-5.1) Chloride Level 106 mmol/L (98-107) Carbon Dioxide Level 26 mmol/L (21-32) Anion Gap 10 (6-14) Blood Urea Nitrogen 8 mg/dL (8-26) Creatinine 0.4 mg/dL (0.7-1.3) Estimated GFR (Cockcroft-Gault) 213.3 Glucose Level 111 mg/dL (70-99) Calcium Level 6.8 mg/dL (8.5-10.1) Phosphorus Level 2.5 mg/dL (2.6-4.7) Magnesium Level 1.8 mg/dL (1.8-2.4) Troponin I Quantitative 72.121 ng/mL (0.000-0.055) Lactic Acid Level 1.7 mmol/L (0.4-2.0) Urine Collection Type U cath Urine Color Yellow Urine Clarity Clear Urine pH 7.5 Urine Specific Grand Chain <=1.005 Urine Protein Negative mg/dL (NEG-TRACE) Urine Glucose (UA) Negative mg/dL (NEG) Urine Ketones (Stick) Negative mg/dL (NEG) Urine Blood Moderate (NEG) Urine Nitrite Negative (NEG) Urine Bilirubin Negative (NEG) Urine Urobilinogen Dipstick 0.2 mg/dL (0.2 mg/dL) Urine Leukocyte Esterase Negative (NEG) Urine RBC 11-20 /HPF (0-2) Urine WBC 0 /HPF (0-4) Urine Bacteria 0 /HPF (0-FEW) Urine Mucus Slight /LPF Test 04/18/17 08:05 04/18/17 08:10 04/18/17 08:30 04/18/17 11:50 Sodium Level 140 mmol/L (136-145) 137 mmol/L (136-145) Potassium Level 2.8 mmol/L (3.5-5.1) 3.1 mmol/L (3.5-5.1) Chloride Level 105 mmol/L (98-107) 103 mmol/L (98-107) Carbon Dioxide Level 25 mmol/L (21-32) 23 mmol/L (21-32) Anion Gap 10 (6-14) 11 (6-14) Blood Urea Nitrogen 7 mg/dL (8-26) 8 mg/dL (8-26) Creatinine 0.4 mg/dL (0.7-1.3) 0.6 mg/dL (0.7-1.3) Estimated GFR (Cockcroft-Gault) 213.3 133.6 Glucose Level 130 mg/dL (70-99) 259 mg/dL (70-99) Lactic Acid Level 1.6 mmol/L (0.4-2.0) Calcium Level 7.4 mg/dL (8.5-10.1) 6.6 mg/dL (8.5-10.1) Ionized Calcium 0.90 mmol/L (1.13-1.32) Phosphorus Level 1.7 mg/dL (2.6-4.7) 1.7 mg/dL (2.6-4.7) Magnesium Level 1.8 mg/dL (1.8-2.4) 1.6 mg/dL (1.8-2.4) Total Bilirubin 0.7 mg/dL (0.2-1.0) Direct Bilirubin 0.2 mg/dL (0.0-0.2) Aspartate Amino Transf (AST/SGOT) 391 U/L (15-37) Alanine Aminotransferase (ALT/SGPT) 90 U/L (16-63) Alkaline Phosphatase 78 U/L (46-116) Total Protein 6.5 g/dL (6.4-8.2) Albumin 3.0 g/dL (3.4-5.0) Lipase 64 U/L (73-393) Heparin Anti-Xa Act, Unfractionated 0.67 IU/mL (0.30-0.70) O2 Saturation 99 % (92-99) Arterial Blood pH 7.51 (7.35-7.45) Arterial Blood pH (Temp corrected) 7.61 Arterial Blood pCO2 at Patient Temp 24 mmHg (35-46) Arterial Blood pCO2 (Temp correct) 18 mmHg Arterial Blood pO2 at Patient Temp 401 mmHg (65-108) Arterial Blood pO2 (Temp corrected) 364 mmHg Arterial Blood HCO3 18 mmol/L (21-28) Arterial Blood Base Excess -2 mmol/L (-3-3) FiO2 100 Test 04/18/17 14:20 04/18/17 15:45 04/18/17 16:20 White Blood Count 14.0 x10^3/uL (4.0-11.0) Red Blood Count 4.60 x10^6/uL (4.30-5.70) Hemoglobin 16.1 g/dL (13.0-17.5) Hematocrit 48.0 % (39.0-53.0) Mean Corpuscular Volume 104 fL (79-100) Mean Corpuscular Hemoglobin 35 pg (25-35) Mean Corpuscular Hemoglobin Concent 34 g/dL (31-37) Red Cell Distribution Width 13.7 % (11.5-14.5) Platelet Count 132 x10^3/uL (140-400) Prothrombin Time 15.9 SEC (11.7-14.0) Prothromb Time International Ratio 1.4 (0.8-1.1) Heparin Anti-Xa Act, Unfractionated 0.64 IU/mL (0.30-0.70) Lactic Acid Level 2.3 mmol/L (0.4-2.0) O2 Saturation 98 % (92-99) Arterial Blood pH 7.31 (7.35-7.45) Arterial Blood pH (Temp corrected) 7.36 Arterial Blood pCO2 at Patient Temp 42 mmHg (35-46) Arterial Blood pCO2 (Temp correct) 36 mmHg Arterial Blood pO2 at Patient Temp 127 mmHg (65-108) Arterial Blood pO2 (Temp corrected) 107 mmHg Arterial Blood HCO3 21 mmol/L (21-28) Arterial Blood Base Excess -5 mmol/L (-3-3) FiO2 40 Sodium Level 142 mmol/L (136-145) Potassium Level 2.9 mmol/L (3.5-5.1) Chloride Level 110 mmol/L (98-107) Carbon Dioxide Level 23 mmol/L (21-32) Anion Gap 9 (6-14) Blood Urea Nitrogen 8 mg/dL (8-26) Creatinine 0.6 mg/dL (0.7-1.3) Estimated GFR (Cockcroft-Gault) 133.6 Glucose Level 115 mg/dL (70-99) Calcium Level 6.5 mg/dL (8.5-10.1) Phosphorus Level 2.5 mg/dL (2.6-4.7) Magnesium Level 1.7 mg/dL (1.8-2.4) Images Images cardiac cath: Findings. Aortic root pressure at the initiation of the case on dopamine of 98/58. Aortic root pressure post-placement of intra-aortic balloon pump was 136/78. Coronaries. Left main. The left main had a 45% lesion. Left anterior descending. The LAD had a mid 95% lesion with collateralization to the distal right coronary artery. Left circumflex. The left circumflex had a proximal 90% lesion and an 85% lesion of obtuse marginal 1. Right coronary artery. The right coronary was proximally chronically occluded with collateralization from both the right coronary artery and the LAD. No left ventriculogram was performed. Aortic root injection. The aortic root appeared normal without aortic insufficiency or enlargement. Abdominal aortic injection. The abdominal aorta also appeared normal without significant disease. <Conclusion> 3 vessel coronary artery disease including a left main lesion and a chronically occluded right coronary artery. Successful placement of an intra-aortic balloon pump. Assessment/Plan Assessment/Plan 1. VF arrest/STEMI (inferior) - OOH shock X 2; ~ 10 minutes resuscitation 3 vessel CAD with LM disease on cardiac cath - LVEF ~ 50-55% hypothermia protocol in process IABP in use will need to re-warm as well as have sedation held to determine neurological status prior to consideration for surgical revascularization (discussed with family) 2. acute respiratory failure vent/sedation per AARTI Hurtado IC DESIGN MANAGER Apr 18, 2017 17:39
[2017-04-18 21:12] LABS: CALCIUM 6.8 mg/dL (8.5-10.1); CREATININE 0.5 mg/dL (0.7-1.3); GFR 164.9; MAGNESIUM 2.1 mg/dL (1.8-2.4); PHOSPHORUS 2.6 mg/dL (2.6-4.7); POTASSIUM 4.4 mmol/L (3.5-5.1)
[2017-04-18] MEDS ORDERED: ACETAMINOPHEN 650 MG SUPP.RECT. PR PRN (21:30)
[2017-04-18] MEDS ORDERED: ACETAMINOPHEN 650 MG/20.3 ML SOLUTION. NG PRN (21:30)
--- NOTE | 2017-04-18 22:37 | EKG ---
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
[2017-04-18 22:39] LABS: HEMATOCRIT 49.9 % (39.0-53.0); HEMOGLOBIN 16.6 g/dL (13.0-17.5); RED BLOOD COUNT 4.74 x10^6/uL (4.30-5.70); RED CELL DISTRIBUTION WIDTH 14.2 % (11.5-14.5); WHITE BLOOD COUNT 14.4 x10^3/uL (4.0-11.0)
[2017-04-18 22:49] LABS: INR 1.3 (0.8-1.1); PROTHROMBIN TIME PATIENT 15.4 SEC (11.7-14.0)
[2017-04-18 22:53] LABS: PARTIAL THROMBOPLASTIN TIME > 150 SEC (24-38)
[2017-04-19] VITALS (28 sets, daily range): BP systolic 93–151; BP diastolic 36–81
[2017-04-19 00:30] LABS: CALCIUM 6.9 mg/dL (8.5-10.1); CREATININE 0.5 mg/dL (0.7-1.3); GFR 164.9; PHOSPHORUS 3.7 mg/dL (2.6-4.7); POTASSIUM 4.2 mmol/L (3.5-5.1)
[2017-04-19] MEDS: HEPARIN 25,000UTS/500ML PREMIX 500 ML IV PRN (01:48)
[2017-04-19] MEDS: PROPOFOL 100 ML IV PRN ×2 (02:19→09:26)
[2017-04-19 04:48] LABS: CALCIUM 6.8 mg/dL (8.5-10.1); CREATININE 0.5 mg/dL (0.7-1.3); GFR 164.9; MAGNESIUM 1.9 mg/dL (1.8-2.4); PHOSPHORUS 3.4 mg/dL (2.6-4.7); POTASSIUM 4.6 mmol/L (3.5-5.1)
--- NOTE | 2017-04-19 05:36 | EKG ---
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
[2017-04-19 06:33] LABS: BASO % 0 % (0-3); EOS % 0 % (0-3); HEMATOCRIT 48.7 % (39.0-53.0); HEMOGLOBIN 16.2 g/dL (13.0-17.5); LYMPH # 1.3 x10^3/uL (1.0-4.8); LYMPH % 8 % (24-48); MEAN CORPUSCULAR HEMOGLOBIN 35 pg (25-35); MEAN CORPUSCULAR HGB CONC 33 g/dL (31-37); MEAN CORPUSCULAR VOLUME 105 fL (79-100); MONO % 6 % (0-9); NEUT % 85 % (31-73); PLATELET COUNT 111 x10^3/uL (140-400); RED BLOOD COUNT 4.66 x10^6/uL (4.30-5.70); RED CELL DISTRIBUTION WIDTH 14.3 % (11.5-14.5); WHITE BLOOD COUNT 16.2 x10^3/uL (4.0-11.0)
[2017-04-19 07:51] LABS: HCO3 ABG 19 mmol/L (21-28); PCO2 ABG 36 mmHg (35-46); PH ABG 7.34 (7.35-7.45); PO2 ABG 108 mmHg (65-108); SAT O2 ABG 98 % (92-99)
[2017-04-19] MEDS: ANTI-COAG MONITOR BY PHARMACY. MC PRN (08:06)
[2017-04-19 08:11] LABS: BODY TEMP ABG 95.2 DEG; CORRECTED PCO2 ABG 33 mmHg; CORRECTED PH ABG 7.37; CORRECTED PO2 ABG 97 mmHg
--- NOTE | 2017-04-19 08:15 | PDOC ---
CARDIOLOGY PROGRESS NOTE SUBJECTIVE: No acute events overnight. No significant arrhythmias Remains sedated on cooling protocol. OBJECTIVE: Vital SIgns: Vital Signs Date Time Temp Pulse Resp B/P (MAP) Pulse Ox O2 Delivery O2 Flow Rate FiO2 04/19/17 07:24 100 Ventilator 04/19/17 07:00 58 16 119/55 (76) 04/19/17 06:00 94.8 94.8 I & O +2L Objective: Gen: Sedated, non-response Normal heart tones. Lungs clear anteriorly soft abd no edema. cool extremities. CURRENT MEDICATIONS: hep gtt dopamine gtt amiodarone gtt DIAGNOSTIC TESTING: Labs reviewed - stable. ASSESSMENT: 1. VF arrest 2. 3V CAD 3. Cardiogenic shock. Problems: PLAN: 1. Continue present meds. 2. Plan for rewarming today. Lidocaine stopped. 3. If he recovers from a neurologic perspective, then plan for surgery in several days after stabilization and re-eval. Thanks and will follow along. PAN BETH MD Apr 19, 2017 08:15
[2017-04-19 08:17] LABS: INR 1.3 (0.8-1.1); PROTHROMBIN TIME PATIENT 15.8 SEC (11.7-14.0)
[2017-04-19 08:19] LABS: PARTIAL THROMBOPLASTIN TIME > 150 SEC (24-38)
[2017-04-19 08:24] LABS: ALBUMIN 2.2 g/dL (3.4-5.0); CALCIUM 7.2 mg/dL (8.5-10.1); CREATININE 0.5 mg/dL (0.7-1.3); DIRECT BILIRUBIN 0.1 mg/dL (0.0-0.2); GFR 164.9; MAGNESIUM 1.9 mg/dL (1.8-2.4); PHOSPHORUS 3.4 mg/dL (2.6-4.7); POTASSIUM 4.2 mmol/L (3.5-5.1); TOTAL BILIRUBIN 0.3 mg/dL (0.2-1.0); TOTAL PROTEIN 5.2 g/dL (6.4-8.2)
[2017-04-19 08:34] LABS: FIO2 ABG 40
[2017-04-19] MEDS: FAMOTIDINE 20 MG/2 ML VIAL IVP SCH ×2 (09:26→20:52)
[2017-04-19] MEDS: ASPIRIN 300 MG SUPP.RECT PR SCH (09:26)
--- NOTE | 2017-04-19 09:45 | RAD ---
Indication respiratory failure. A single view of the chest was obtained and is compared to an examination one day earlier. Nasogastric tube endotracheal tube and aortic assist device are noted. There is unchanged volume loss, probably reflecting atelectasis and pleural fluid in the left lower lobe. There are now background changes suggesting moderate congestive heart failure. IMPRESSION:. Support tubes and catheters appear appropriately positioned. Unchanged volume loss, likely reflecting pleural fluid and atelectasis, at the left lung base. Probable moderate congestive heart failure
[2017-04-19] MEDS: IV NORMAL SALINE 1000ML BAG 1,000 ML IV SCH ×3 (10:21→23:42)
[2017-04-19] MEDS: CHLORHEXIDINE 0.12% 15 ML MOUTHWASH. MM SCH ×2 (10:21→21:08)
--- NOTE | 2017-04-19 11:31 | PDOC ---
PROGRESS NOTES Chief Complaint Chief Complaint 1. Post code 2. cardiac arrest, vifb, 2/2 acute [place] likely, possible STEMI 3. ACUTE resp failure with cardiac arrest 4. hypokalemia 5. shock ,cardiogenic likely 6. leukocytosis, reactive 7. AMS, from cardiac arrest 8. Multivessel disease including left main History of Present Illness History of Present Illness Seen in the ICU. Patient intubated (AC/16/500/40%) and continuing to requiring bear hugger warming device and warming mats. Patient opening eyes spontaneously. unresponsive to speech Vitals Vitals Vital Signs Date Time Temp Pulse Resp B/P (MAP) Pulse Ox O2 Delivery O2 Flow Rate FiO2 04/19/17 11:10 98 Ventilator 04/19/17 11:00 75 16 114/51 (72) 04/19/17 06:00 94.8 94.8 Physical Exam General: Other (sedated/vent) Heart: Normal S1, Normal S2 Abdomen: Soft Extremities: No edema, Other (1+ left DP and right DP by Doppler) Skin: No rashes Labs LABS Laboratory Tests Test 04/18/17 11:50 04/18/17 14:20 04/18/17 15:45 04/18/17 16:20 Sodium Level 137 mmol/L (136-145) 142 mmol/L (136-145) Potassium Level 3.1 mmol/L (3.5-5.1) 2.9 mmol/L (3.5-5.1) Chloride Level 103 mmol/L (98-107) 110 mmol/L (98-107) Carbon Dioxide Level 23 mmol/L (21-32) 23 mmol/L (21-32) Anion Gap 11 (6-14) 9 (6-14) Blood Urea Nitrogen 8 mg/dL (8-26) 8 mg/dL (8-26) Creatinine 0.6 mg/dL (0.7-1.3) 0.6 mg/dL (0.7-1.3) Estimated GFR (Cockcroft-Gault) 133.6 133.6 Glucose Level 259 mg/dL (70-99) 115 mg/dL (70-99) Calcium Level 6.6 mg/dL (8.5-10.1) 6.5 mg/dL (8.5-10.1) Phosphorus Level 1.7 mg/dL (2.6-4.7) 2.5 mg/dL (2.6-4.7) Magnesium Level 1.6 mg/dL (1.8-2.4) 1.7 mg/dL (1.8-2.4) White Blood Count 14.0 x10^3/uL (4.0-11.0) Red Blood Count 4.60 x10^6/uL (4.30-5.70) Hemoglobin 16.1 g/dL (13.0-17.5) Hematocrit 48.0 % (39.0-53.0) Mean Corpuscular Volume 104 fL (79-100) Mean Corpuscular Hemoglobin 35 pg (25-35) Mean Corpuscular Hemoglobin Concent 34 g/dL (31-37) Red Cell Distribution Width 13.7 % (11.5-14.5) Platelet Count 132 x10^3/uL (140-400) Prothrombin Time 15.9 SEC (11.7-14.0) Prothromb Time International Ratio 1.4 (0.8-1.1) Heparin Anti-Xa Act, Unfractionated 0.64 IU/mL (0.30-0.70) Lactic Acid Level 2.3 mmol/L (0.4-2.0) O2 Saturation 98 % (92-99) Arterial Blood pH 7.31 (7.35-7.45) Arterial Blood pH (Temp corrected) 7.36 Arterial Blood pCO2 at Patient Temp 42 mmHg (35-46) Arterial Blood pCO2 (Temp correct) 36 mmHg Arterial Blood pO2 at Patient Temp 127 mmHg (65-108) Arterial Blood pO2 (Temp corrected) 107 mmHg Arterial Blood HCO3 21 mmol/L (21-28) Arterial Blood Base Excess -5 mmol/L (-3-3) FiO2 40 Test 04/18/17 17:50 04/18/17 20:51 04/18/17 22:30 04/19/17 00:05 Heparin Anti-Xa Act, Unfractionated 0.90 IU/mL (0.30-0.70) Sodium Level 141 mmol/L (136-145) 141 mmol/L (136-145) Potassium Level 4.4 mmol/L (3.5-5.1) 4.2 mmol/L (3.5-5.1) Chloride Level 111 mmol/L (98-107) 110 mmol/L (98-107) Carbon Dioxide Level 23 mmol/L (21-32) 21 mmol/L (21-32) Anion Gap 7 (6-14) 10 (6-14) Blood Urea Nitrogen 8 mg/dL (8-26) 9 mg/dL (8-26) Creatinine 0.5 mg/dL (0.7-1.3) 0.5 mg/dL (0.7-1.3) Estimated GFR (Cockcroft-Gault) 164.9 164.9 Glucose Level 95 mg/dL (70-99) 110 mg/dL (70-99) Calcium Level 6.8 mg/dL (8.5-10.1) 6.9 mg/dL (8.5-10.1) Phosphorus Level 2.6 mg/dL (2.6-4.7) 3.7 mg/dL (2.6-4.7) Magnesium Level 2.1 mg/dL (1.8-2.4) 2.0 mg/dL (1.8-2.4) White Blood Count 14.4 x10^3/uL (4.0-11.0) Red Blood Count 4.74 x10^6/uL (4.30-5.70) Hemoglobin 16.6 g/dL (13.0-17.5) Hematocrit 49.9 % (39.0-53.0) Mean Corpuscular Volume 105 fL (79-100) Mean Corpuscular Hemoglobin 35 pg (25-35) Mean Corpuscular Hemoglobin Concent 33 g/dL (31-37) Red Cell Distribution Width 14.2 % (11.5-14.5) Platelet Count 135 x10^3/uL (140-400) Prothrombin Time 15.4 SEC (11.7-14.0) Prothromb Time International Ratio 1.3 (0.8-1.1) Activated Partial Thromboplast Time > 150 SEC (24-38) Lactic Acid Level 1.6 mmol/L (0.4-2.0) Test 04/19/17 01:40 04/19/17 04:10 04/19/17 06:00 04/19/17 07:50 Heparin Anti-Xa Act, Unfractionated 0.34 IU/mL (0.30-0.70) 0.37 IU/mL (0.30-0.70) Sodium Level 140 mmol/L (136-145) 139 mmol/L (136-145) Potassium Level 4.6 mmol/L (3.5-5.1) 4.2 mmol/L (3.5-5.1) Chloride Level 111 mmol/L (98-107) 109 mmol/L (98-107) Carbon Dioxide Level 21 mmol/L (21-32) 21 mmol/L (21-32) Anion Gap 8 (6-14) 9 (6-14) Blood Urea Nitrogen 7 mg/dL (8-26) 7 mg/dL (8-26) Creatinine 0.5 mg/dL (0.7-1.3) 0.5 mg/dL (0.7-1.3) Estimated GFR (Cockcroft-Gault) 164.9 164.9 Glucose Level 112 mg/dL (70-99) 108 mg/dL (70-99) Calcium Level 6.8 mg/dL (8.5-10.1) 7.2 mg/dL (8.5-10.1) Phosphorus Level 3.4 mg/dL (2.6-4.7) 3.4 mg/dL (2.6-4.7) Magnesium Level 1.9 mg/dL (1.8-2.4) 1.9 mg/dL (1.8-2.4) White Blood Count 16.2 x10^3/uL (4.0-11.0) Red Blood Count 4.66 x10^6/uL (4.30-5.70) Hemoglobin 16.2 g/dL (13.0-17.5) Hematocrit 48.7 % (39.0-53.0) Mean Corpuscular Volume 105 fL (79-100) Mean Corpuscular Hemoglobin 35 pg (25-35) Mean Corpuscular Hemoglobin Concent 33 g/dL (31-37) Red Cell Distribution Width 14.3 % (11.5-14.5) Platelet Count 111 x10^3/uL (140-400) Neutrophils (%) (Auto) 85 % (31-73) Lymphocytes (%) (Auto) 8 % (24-48) Monocytes (%) (Auto) 6 % (0-9) Eosinophils (%) (Auto) 0 % (0-3) Basophils (%) (Auto) 0 % (0-3) Neutrophils # (Auto) 13.8 x10^3uL (1.8-7.7) Lymphocytes # (Auto) 1.3 x10^3/uL (1.0-4.8) Monocytes # (Auto) 1.0 x10^3/uL (0.0-1.1) Eosinophils # (Auto) 0.1 x10^3/uL (0.0-0.7) Basophils # (Auto) 0.0 x10^3/uL (0.0-0.2) Lactic Acid Level 1.0 mmol/L (0.4-2.0) Prothrombin Time 15.8 SEC (11.7-14.0) Prothromb Time International Ratio 1.3 (0.8-1.1) Activated Partial Thromboplast Time > 150 SEC (24-38) Ionized Calcium 1.03 mmol/L (1.13-1.32) Total Bilirubin 0.3 mg/dL (0.2-1.0) Direct Bilirubin 0.1 mg/dL (0.0-0.2) Aspartate Amino Transf (AST/SGOT) 172 U/L (15-37) Alanine Aminotransferase (ALT/SGPT) 68 U/L (16-63) Alkaline Phosphatase 65 U/L (46-116) Total Protein 5.2 g/dL (6.4-8.2) Albumin 2.2 g/dL (3.4-5.0) Lipase 66 U/L (73-393) Test 04/19/17 08:00 O2 Saturation 98 % (92-99) Arterial Blood pH 7.34 (7.35-7.45) Arterial Blood pH (Temp corrected) 7.37 Arterial Blood pCO2 at Patient Temp 36 mmHg (35-46) Arterial Blood pCO2 (Temp correct) 33 mmHg Arterial Blood pO2 at Patient Temp 108 mmHg (65-108) Arterial Blood pO2 (Temp corrected) 97 mmHg Arterial Blood HCO3 19 mmol/L (21-28) Arterial Blood Base Excess -6 mmol/L (-3-3) FiO2 40 Review of Systems Review of Systems Does not appear to be in acute distress. Intubated. No vomiting, gagging or aggravation noted. Assessment and Plan Assessmemt and Plan Assessment: 1. Post code 2. cardiac arrest, vifb, 2/2 acute [place] likely, possible STEMI 3. ACUTE resp failure with cardiac arrest 4. hypokalemia 5. shock ,cardiogenic likely 6. leukocytosis, reactive 7. AMS, from cardiac arrest 8. Multivessel disease including left main Plan: 1 Continue ICU care 2 Continue hypothermia protocol 3 Patient is intubated (AC/16/500/40%), sedated, pulm consult, CXR daily 4 Continue to keep MAP >65 , need pressors [address] and monitor urine output >0.5cc/kg 6 NPO 7 IVF 8 Continue lidocaine drip 9 SSI q6h 10 need to get PMH AND home meds 11 Daily labs 12 DVT and GI prophylaxis 13 Continue to monitor potassium and replace as needed 14 Consult palliative care regarding terminal system operator goals and care clarification 15 Appreciate subspecialty input and assistance 16 Discussed plan with nursing Total time 32 minutes Problems: Comment Review of Relevant I have reviewed the following items erna (where applicable) has been applied. Labs Laboratory Tests Test 04/17/17 18:59 04/17/17 19:14 04/17/17 22:00 04/17/17 23:08 White Blood Count 16.3 x10^3/uL (4.0-11.0) 21.3 x10^3/uL (4.0-11.0) Red Blood Count 4.67 x10^6/uL (4.30-5.70) 4.84 x10^6/uL (4.30-5.70) Hemoglobin 16.6 g/dL (13.0-17.5) 17.3 g/dL (13.0-17.5) Hematocrit 49.3 % (39.0-53.0) 50.9 % (39.0-53.0) Mean Corpuscular Volume 106 fL (79-100) 105 fL (79-100) Mean Corpuscular Hemoglobin 36 pg (25-35) 36 pg (25-35) Mean Corpuscular Hemoglobin Concent 34 g/dL (31-37) 34 g/dL (31-37) Red Cell Distribution Width 14.1 % (11.5-14.5) 14.7 % (11.5-14.5) Platelet Count 186 x10^3/uL (140-400) 208 x10^3/uL (140-400) Neutrophils (%) (Auto) 58 % (31-73) Lymphocytes (%) (Auto) 33 % (24-48) Monocytes (%) (Auto) 6 % (0-9) Eosinophils (%) (Auto) 3 % (0-3) Basophils (%) (Auto) 1 % (0-3) Neutrophils # (Auto) 9.4 x10^3uL (1.8-7.7) Lymphocytes # (Auto) 5.3 x10^3/uL (1.0-4.8) Monocytes # (Auto) 1.0 x10^3/uL (0.0-1.1) Eosinophils # (Auto) 0.5 x10^3/uL (0.0-0.7) Basophils # (Auto) 0.1 x10^3/uL (0.0-0.2) Sodium Level 136 mmol/L (136-145) Potassium Level 3.3 mmol/L (3.5-5.1) Chloride Level 99 mmol/L (98-107) Carbon Dioxide Level 15 mmol/L (21-32) Anion Gap 22 (6-14) Blood Urea Nitrogen 9 mg/dL (8-26) Creatinine 0.7 mg/dL (0.7-1.3) Estimated GFR (Cockcroft-Gault) 111.8 Glucose Level 137 mg/dL (70-99) Calcium Level 8.6 mg/dL (8.5-10.1) Magnesium Level 2.2 mg/dL (1.8-2.4) Total Bilirubin 0.6 mg/dL (0.2-1.0) Direct Bilirubin 0.2 mg/dL (0.0-0.2) Aspartate Amino Transf (AST/SGOT) 72 U/L (15-37) Alanine Aminotransferase (ALT/SGPT) 50 U/L (16-63) Alkaline Phosphatase 78 U/L (46-116) Creatine Kinase 94 U/L (39-308) 1501 U/L (39-308) Creatine Kinase MB (Mass) 1.5 ng/mL (0.0-3.6) 215.0 ng/mL (0.0-3.6) Creatine Kinase MB Relative Index 1.6 % (0-4) 14.3 % (0-4) Troponin I Quantitative 0.176 ng/mL (0.000-0.055) OI-Vzl-F-Type Natriuretic Peptide 679 pg/mL (0-124) Total Protein 6.9 g/dL (6.4-8.2) Albumin 3.4 g/dL (3.4-5.0) Lipase 112 U/L (73-393) Urine Color Yellow Urine Clarity Clear Urine pH 6.5 Urine Specific [place] <=1.005 Urine Protein 100 mg/dL (NEG-TRACE) Urine Glucose (UA) Negative mg/dL (NEG) Urine Ketones (Stick) Negative mg/dL (NEG) Urine Blood Trace (NEG) Urine Nitrite Negative (NEG) Urine Bilirubin Negative (NEG) Urine Urobilinogen Dipstick 0.2 mg/dL (0.2 mg/dL) Urine Leukocyte Esterase Negative (NEG) Urine RBC 1-2 /HPF (0-2) Urine WBC 0 /HPF (0-4) Urine Squamous Epithelial Cells Occ /LPF Urine Bacteria 0 /HPF (0-FEW) Urine Sperm Present /HPF Prothrombin Time 15.2 SEC (11.7-14.0) Prothromb Time International Ratio 1.3 (0.8-1.1) Activated Partial Thromboplast Time > 150 SEC (24-38) Heparin Anti-Xa Act, Unfractionated 0.58 IU/mL (0.30-0.70) Lactic Acid Level 4.3 mmol/L (0.4-2.0) Amylase Level 472 U/L (25-115) O2 Saturation 98 % (92-99) Arterial Blood pH 7.13 (7.35-7.45) Arterial Blood pH (Temp corrected) 7.18 Arterial Blood pCO2 at Patient Temp 57 mmHg (35-46) Arterial Blood pCO2 (Temp correct) 48 mmHg Arterial Blood pO2 at Patient Temp 157 mmHg (65-108) Arterial Blood pO2 (Temp corrected) 137 mmHg Arterial Blood HCO3 19 mmol/L (21-28) Arterial Blood Base Excess -11 mmol/L (-3-3) Test 04/17/17 23:39 04/18/17 02:25 04/18/17 02:35 04/18/17 06:30 Glucose (Fingerstick) 138 mg/dL (70-99) White Blood Count 20.9 x10^3/uL (4.0-11.0) Red Blood Count 4.98 x10^6/uL (4.30-5.70) Hemoglobin 17.3 g/dL (13.0-17.5) Hematocrit 51.6 % (39.0-53.0) Mean Corpuscular Volume 104 fL (79-100) Mean Corpuscular Hemoglobin 35 pg (25-35) Mean Corpuscular Hemoglobin Concent 34 g/dL (31-37) Red Cell Distribution Width 13.9 % (11.5-14.5) Platelet Count 169 x10^3/uL (140-400) Neutrophils (%) (Auto) 86 % (31-73) Lymphocytes (%) (Auto) 7 % (24-48) Monocytes (%) (Auto) 6 % (0-9) Eosinophils (%) (Auto) 0 % (0-3) Basophils (%) (Auto) 0 % (0-3) Neutrophils # (Auto) 17.9 x10^3uL (1.8-7.7) Lymphocytes # (Auto) 1.5 x10^3/uL (1.0-4.8) Monocytes # (Auto) 1.3 x10^3/uL (0.0-1.1) Eosinophils # (Auto) 0.0 x10^3/uL (0.0-0.7) Basophils # (Auto) 0.1 x10^3/uL (0.0-0.2) Segmented Neutrophils % 75 % (35-66) Band Neutrophils % 9 % (0-9) Lymphocytes % 11 % (24-48) Monocytes % 5 % (0-10) Platelet Estimate Adequate (ADEQUATE) Macrocytosis Present Prothrombin Time 14.3 SEC (11.7-14.0) Prothromb Time International Ratio 1.2 (0.8-1.1) Activated Partial Thromboplast Time > 150 SEC (24-38) Sodium Level 142 mmol/L (136-145) Potassium Level 3.3 mmol/L (3.5-5.1) Chloride Level 106 mmol/L (98-107) Carbon Dioxide Level 26 mmol/L (21-32) Anion Gap 10 (6-14) Blood Urea Nitrogen 8 mg/dL (8-26) Creatinine 0.4 mg/dL (0.7-1.3) Estimated GFR (Cockcroft-Gault) 213.3 Glucose Level 111 mg/dL (70-99) Calcium Level 6.8 mg/dL (8.5-10.1) Phosphorus Level 2.5 mg/dL (2.6-4.7) Magnesium Level 1.8 mg/dL (1.8-2.4) Troponin I Quantitative 72.121 ng/mL (0.000-0.055) Lactic Acid Level 1.7 mmol/L (0.4-2.0) Urine Collection Type U cath Urine Color Yellow Urine Clarity Clear Urine pH 7.5 Urine Specific [place] <=1.005 Urine Protein Negative mg/dL (NEG-TRACE) Urine Glucose (UA) Negative mg/dL (NEG) Urine Ketones (Stick) Negative mg/dL (NEG) Urine Blood Moderate (NEG) Urine Nitrite Negative (NEG) Urine Bilirubin Negative (NEG) Urine Urobilinogen Dipstick 0.2 mg/dL (0.2 mg/dL) Urine Leukocyte Esterase Negative (NEG) Urine RBC 11-20 /HPF (0-2) Urine WBC 0 /HPF (0-4) Urine Bacteria 0 /HPF (0-FEW) Urine Mucus Slight /LPF Test 04/18/17 08:05 04/18/17 08:10 04/18/17 08:30 04/18/17 11:50 Sodium Level 140 mmol/L (136-145) 137 mmol/L (136-145) Potassium Level 2.8 mmol/L (3.5-5.1) 3.1 mmol/L (3.5-5.1) Chloride Level 105 mmol/L (98-107) 103 mmol/L (98-107) Carbon Dioxide Level 25 mmol/L (21-32) 23 mmol/L (21-32) Anion Gap 10 (6-14) 11 (6-14) Blood Urea Nitrogen 7 mg/dL (8-26) 8 mg/dL (8-26) Creatinine 0.4 mg/dL (0.7-1.3) 0.6 mg/dL (0.7-1.3) Estimated GFR (Cockcroft-Gault) 213.3 133.6 Glucose Level 130 mg/dL (70-99) 259 mg/dL (70-99) Lactic Acid Level 1.6 mmol/L (0.4-2.0) Calcium Level 7.4 mg/dL (8.5-10.1) 6.6 mg/dL (8.5-10.1) Ionized Calcium 0.90 mmol/L (1.13-1.32) Phosphorus Level 1.7 mg/dL (2.6-4.7) 1.7 mg/dL (2.6-4.7) Magnesium Level 1.8 mg/dL (1.8-2.4) 1.6 mg/dL (1.8-2.4) Total Bilirubin 0.7 mg/dL (0.2-1.0) Direct Bilirubin 0.2 mg/dL (0.0-0.2) Aspartate Amino Transf (AST/SGOT) 391 U/L (15-37) Alanine Aminotransferase (ALT/SGPT) 90 U/L (16-63) Alkaline Phosphatase 78 U/L (46-116) Total Protein 6.5 g/dL (6.4-8.2) Albumin 3.0 g/dL (3.4-5.0) Lipase 64 U/L (73-393) Heparin Anti-Xa Act, Unfractionated 0.67 IU/mL (0.30-0.70) O2 Saturation 99 % (92-99) Arterial Blood pH 7.51 (7.35-7.45) Arterial Blood pH (Temp corrected) 7.61 Arterial Blood pCO2 at Patient Temp 24 mmHg (35-46) Arterial Blood pCO2 (Temp correct) 18 mmHg Arterial Blood pO2 at Patient Temp 401 mmHg (65-108) Arterial Blood pO2 (Temp corrected) 364 mmHg Arterial Blood HCO3 18 mmol/L (21-28) Arterial Blood Base Excess -2 mmol/L (-3-3) FiO2 100 Test 04/18/17 14:20 04/18/17 15:45 04/18/17 16:20 04/18/17 17:50 White Blood Count 14.0 x10^3/uL (4.0-11.0) Red Blood Count 4.60 x10^6/uL (4.30-5.70) Hemoglobin 16.1 g/dL (13.0-17.5) Hematocrit 48.0 % (39.0-53.0) Mean Corpuscular Volume 104 fL (79-100) Mean Corpuscular Hemoglobin 35 pg (25-35) Mean Corpuscular Hemoglobin Concent 34 g/dL (31-37) Red Cell Distribution Width 13.7 % (11.5-14.5) Platelet Count 132 x10^3/uL (140-400) Prothrombin Time 15.9 SEC (11.7-14.0) Prothromb Time International Ratio 1.4 (0.8-1.1) Heparin Anti-Xa Act, Unfractionated 0.64 IU/mL (0.30-0.70) 0.90 IU/mL (0.30-0.70) Lactic Acid Level 2.3 mmol/L (0.4-2.0) O2 Saturation 98 % (92-99) Arterial Blood pH 7.31 (7.35-7.45) Arterial Blood pH (Temp corrected) 7.36 Arterial Blood pCO2 at Patient Temp 42 mmHg (35-46) Arterial Blood pCO2 (Temp correct) 36 mmHg Arterial Blood pO2 at Patient Temp 127 mmHg (65-108) Arterial Blood pO2 (Temp corrected) 107 mmHg Arterial Blood HCO3 21 mmol/L (21-28) Arterial Blood Base Excess -5 mmol/L (-3-3) FiO2 40 Sodium Level 142 mmol/L (136-145) Potassium Level 2.9 mmol/L (3.5-5.1) Chloride Level 110 mmol/L (98-107) Carbon Dioxide Level 23 mmol/L (21-32) Anion Gap 9 (6-14) Blood Urea Nitrogen 8 mg/dL (8-26) Creatinine 0.6 mg/dL (0.7-1.3) Estimated GFR (Cockcroft-Gault) 133.6 Glucose Level 115 mg/dL (70-99) Calcium Level 6.5 mg/dL (8.5-10.1) Phosphorus Level 2.5 mg/dL (2.6-4.7) Magnesium Level 1.7 mg/dL (1.8-2.4) Test 04/18/17 20:51 04/18/17 22:30 04/19/17 00:05 04/19/17 01:40 Sodium Level 141 mmol/L (136-145) 141 mmol/L (136-145) Potassium Level 4.4 mmol/L (3.5-5.1) 4.2 mmol/L (3.5-5.1) Chloride Level 111 mmol/L (98-107) 110 mmol/L (98-107) Carbon Dioxide Level 23 mmol/L (21-32) 21 mmol/L (21-32) Anion Gap 7 (6-14) 10 (6-14) Blood Urea Nitrogen 8 mg/dL (8-26) 9 mg/dL (8-26) Creatinine 0.5 mg/dL (0.7-1.3) 0.5 mg/dL (0.7-1.3) Estimated GFR (Cockcroft-Gault) 164.9 164.9 Glucose Level 95 mg/dL (70-99) 110 mg/dL (70-99) Calcium Level 6.8 mg/dL (8.5-10.1) 6.9 mg/dL (8.5-10.1) Phosphorus Level 2.6 mg/dL (2.6-4.7) 3.7 mg/dL (2.6-4.7) Magnesium Level 2.1 mg/dL (1.8-2.4) 2.0 mg/dL (1.8-2.4) White Blood Count 14.4 x10^3/uL (4.0-11.0) Red Blood Count 4.74 x10^6/uL (4.30-5.70) Hemoglobin 16.6 g/dL (13.0-17.5) Hematocrit 49.9 % (39.0-53.0) Mean Corpuscular Volume 105 fL (79-100) Mean Corpuscular Hemoglobin 35 pg (25-35) Mean Corpuscular Hemoglobin Concent 33 g/dL (31-37) Red Cell Distribution Width 14.2 % (11.5-14.5) Platelet Count 135 x10^3/uL (140-400) Prothrombin Time 15.4 SEC (11.7-14.0) Prothromb Time International Ratio 1.3 (0.8-1.1) Activated Partial Thromboplast Time > 150 SEC (24-38) Lactic Acid Level 1.6 mmol/L (0.4-2.0) Heparin Anti-Xa Act, Unfractionated 0.34 IU/mL (0.30-0.70) Test 04/19/17 04:10 04/19/17 06:00 04/19/17 07:50 04/19/17 08:00 Sodium Level 140 mmol/L (136-145) 139 mmol/L (136-145) Potassium Level 4.6 mmol/L (3.5-5.1) 4.2 mmol/L (3.5-5.1) Chloride Level 111 mmol/L (98-107) 109 mmol/L (98-107) Carbon Dioxide Level 21 mmol/L (21-32) 21 mmol/L (21-32) Anion Gap 8 (6-14) 9 (6-14) Blood Urea Nitrogen 7 mg/dL (8-26) 7 mg/dL (8-26) Creatinine 0.5 mg/dL (0.7-1.3) 0.5 mg/dL (0.7-1.3) Estimated GFR (Cockcroft-Gault) 164.9 164.9 Glucose Level 112 mg/dL (70-99) 108 mg/dL (70-99) Calcium Level 6.8 mg/dL (8.5-10.1) 7.2 mg/dL (8.5-10.1) Phosphorus Level 3.4 mg/dL (2.6-4.7) 3.4 mg/dL (2.6-4.7) Magnesium Level 1.9 mg/dL (1.8-2.4) 1.9 mg/dL (1.8-2.4) White Blood Count 16.2 x10^3/uL (4.0-11.0) Red Blood Count 4.66 x10^6/uL (4.30-5.70) Hemoglobin 16.2 g/dL (13.0-17.5) Hematocrit 48.7 % (39.0-53.0) Mean Corpuscular Volume 105 fL (79-100) Mean Corpuscular Hemoglobin 35 pg (25-35) Mean Corpuscular Hemoglobin Concent 33 g/dL (31-37) Red Cell Distribution Width 14.3 % (11.5-14.5) Platelet Count 111 x10^3/uL (140-400) Neutrophils (%) (Auto) 85 % (31-73) Lymphocytes (%) (Auto) 8 % (24-48) Monocytes (%) (Auto) 6 % (0-9) Eosinophils (%) (Auto) 0 % (0-3) Basophils (%) (Auto) 0 % (0-3) Neutrophils # (Auto) 13.8 x10^3uL (1.8-7.7) Lymphocytes # (Auto) 1.3 x10^3/uL (1.0-4.8) Monocytes # (Auto) 1.0 x10^3/uL (0.0-1.1) Eosinophils # (Auto) 0.1 x10^3/uL (0.0-0.7) Basophils # (Auto) 0.0 x10^3/uL (0.0-0.2) Lactic Acid Level 1.0 mmol/L (0.4-2.0) Prothrombin Time 15.8 SEC (11.7-14.0) Prothromb Time International Ratio 1.3 (0.8-1.1) Activated Partial Thromboplast Time > 150 SEC (24-38) Heparin Anti-Xa Act, Unfractionated 0.37 IU/mL (0.30-0.70) Ionized Calcium 1.03 mmol/L (1.13-1.32) Total Bilirubin 0.3 mg/dL (0.2-1.0) Direct Bilirubin 0.1 mg/dL (0.0-0.2) Aspartate Amino Transf (AST/SGOT) 172 U/L (15-37) Alanine Aminotransferase (ALT/SGPT) 68 U/L (16-63) Alkaline Phosphatase 65 U/L (46-116) Total Protein 5.2 g/dL (6.4-8.2) Albumin 2.2 g/dL (3.4-5.0) Lipase 66 U/L (73-393) O2 Saturation 98 % (92-99) Arterial Blood pH 7.34 (7.35-7.45) Arterial Blood pH (Temp corrected) 7.37 Arterial Blood pCO2 at Patient Temp 36 mmHg (35-46) Arterial Blood pCO2 (Temp correct) 33 mmHg Arterial Blood pO2 at Patient Temp 108 mmHg (65-108) Arterial Blood pO2 (Temp corrected) 97 mmHg Arterial Blood HCO3 19 mmol/L (21-28) Arterial Blood Base Excess -6 mmol/L (-3-3) FiO2 40 Laboratory Tests Test 04/18/17 11:50 04/18/17 14:20 04/18/17 15:45 04/18/17 16:20 Sodium Level 137 mmol/L (136-145) 142 mmol/L (136-145) Potassium Level 3.1 mmol/L (3.5-5.1) 2.9 mmol/L (3.5-5.1) Chloride Level 103 mmol/L (98-107) 110 mmol/L (98-107) Carbon Dioxide Level 23 mmol/L (21-32) 23 mmol/L (21-32) Anion Gap 11 (6-14) 9 (6-14) Blood Urea Nitrogen 8 mg/dL (8-26) 8 mg/dL (8-26) Creatinine 0.6 mg/dL (0.7-1.3) 0.6 mg/dL (0.7-1.3) Estimated GFR (Cockcroft-Gault) 133.6 133.6 Glucose Level 259 mg/dL (70-99) 115 mg/dL (70-99) Calcium Level 6.6 mg/dL (8.5-10.1) 6.5 mg/dL (8.5-10.1) Phosphorus Level 1.7 mg/dL (2.6-4.7) 2.5 mg/dL (2.6-4.7) Magnesium Level 1.6 mg/dL (1.8-2.4) 1.7 mg/dL (1.8-2.4) White Blood Count 14.0 x10^3/uL (4.0-11.0) Red Blood Count 4.60 x10^6/uL (4.30-5.70) Hemoglobin 16.1 g/dL (13.0-17.5) Hematocrit 48.0 % (39.0-53.0) Mean Corpuscular Volume 104 fL (79-100) Mean Corpuscular Hemoglobin 35 pg (25-35) Mean Corpuscular Hemoglobin Concent 34 g/dL (31-37) Red Cell Distribution Width 13.7 % (11.5-14.5) Platelet Count 132 x10^3/uL (140-400) Prothrombin Time 15.9 SEC (11.7-14.0) Prothromb Time International Ratio 1.4 (0.8-1.1) Heparin Anti-Xa Act, Unfractionated 0.64 IU/mL (0.30-0.70) Lactic Acid Level 2.3 mmol/L (0.4-2.0) O2 Saturation 98 % (92-99) Arterial Blood pH 7.31 (7.35-7.45) Arterial Blood pH (Temp corrected) 7.36 Arterial Blood pCO2 at Patient Temp 42 mmHg (35-46) Arterial Blood pCO2 (Temp correct) 36 mmHg Arterial Blood pO2 at Patient Temp 127 mmHg (65-108) Arterial Blood pO2 (Temp corrected) 107 mmHg Arterial Blood HCO3 21 mmol/L (21-28) Arterial Blood Base Excess -5 mmol/L (-3-3) FiO2 40 Test 04/18/17 17:50 04/18/17 20:51 04/18/17 22:30 04/19/17 00:05 Heparin Anti-Xa Act, Unfractionated 0.90 IU/mL (0.30-0.70) Sodium Level 141 mmol/L (136-145) 141 mmol/L (136-145) Potassium Level 4.4 mmol/L (3.5-5.1) 4.2 mmol/L (3.5-5.1) Chloride Level 111 mmol/L (98-107) 110 mmol/L (98-107) Carbon Dioxide Level 23 mmol/L (21-32) 21 mmol/L (21-32) Anion Gap 7 (6-14) 10 (6-14) Blood Urea Nitrogen 8 mg/dL (8-26) 9 mg/dL (8-26) Creatinine 0.5 mg/dL (0.7-1.3) 0.5 mg/dL (0.7-1.3) Estimated GFR (Cockcroft-Gault) 164.9 164.9 Glucose Level 95 mg/dL (70-99) 110 mg/dL (70-99) Calcium Level 6.8 mg/dL (8.5-10.1) 6.9 mg/dL (8.5-10.1) Phosphorus Level 2.6 mg/dL (2.6-4.7) 3.7 mg/dL (2.6-4.7) Magnesium Level 2.1 mg/dL (1.8-2.4) 2.0 mg/dL (1.8-2.4) White Blood Count 14.4 x10^3/uL (4.0-11.0) Red Blood Count 4.74 x10^6/uL (4.30-5.70) Hemoglobin 16.6 g/dL (13.0-17.5) Hematocrit 49.9 % (39.0-53.0) Mean Corpuscular Volume 105 fL (79-100) Mean Corpuscular Hemoglobin 35 pg (25-35) Mean Corpuscular Hemoglobin Concent 33 g/dL (31-37) Red Cell Distribution Width 14.2 % (11.5-14.5) Platelet Count 135 x10^3/uL (140-400) Prothrombin Time 15.4 SEC (11.7-14.0) Prothromb Time International Ratio 1.3 (0.8-1.1) Activated Partial Thromboplast Time > 150 SEC (24-38) Lactic Acid Level 1.6 mmol/L (0.4-2.0) Test 04/19/17 01:40 04/19/17 04:10 04/19/17 06:00 04/19/17 07:50 Heparin Anti-Xa Act, Unfractionated 0.34 IU/mL (0.30-0.70) 0.37 IU/mL (0.30-0.70) Sodium Level 140 mmol/L (136-145) 139 mmol/L (136-145) Potassium Level 4.6 mmol/L (3.5-5.1) 4.2 mmol/L (3.5-5.1) Chloride Level 111 mmol/L (98-107) 109 mmol/L (98-107) Carbon Dioxide Level 21 mmol/L (21-32) 21 mmol/L (21-32) Anion Gap 8 (6-14) 9 (6-14) Blood Urea Nitrogen 7 mg/dL (8-26) 7 mg/dL (8-26) Creatinine 0.5 mg/dL (0.7-1.3) 0.5 mg/dL (0.7-1.3) Estimated GFR (Cockcroft-Gault) 164.9 164.9 Glucose Level 112 mg/dL (70-99) 108 mg/dL (70-99) Calcium Level 6.8 mg/dL (8.5-10.1) 7.2 mg/dL (8.5-10.1) Phosphorus Level 3.4 mg/dL (2.6-4.7) 3.4 mg/dL (2.6-4.7) Magnesium Level 1.9 mg/dL (1.8-2.4) 1.9 mg/dL (1.8-2.4) White Blood Count 16.2 x10^3/uL (4.0-11.0) Red Blood Count 4.66 x10^6/uL (4.30-5.70) Hemoglobin 16.2 g/dL (13.0-17.5) Hematocrit 48.7 % (39.0-53.0) Mean Corpuscular Volume 105 fL (79-100) Mean Corpuscular Hemoglobin 35 pg (25-35) Mean Corpuscular Hemoglobin Concent 33 g/dL (31-37) Red Cell Distribution Width 14.3 % (11.5-14.5) Platelet Count 111 x10^3/uL (140-400) Neutrophils (%) (Auto) 85 % (31-73) Lymphocytes (%) (Auto) 8 % (24-48) Monocytes (%) (Auto) 6 % (0-9) Eosinophils (%) (Auto) 0 % (0-3) Basophils (%) (Auto) 0 % (0-3) Neutrophils # (Auto) 13.8 x10^3uL (1.8-7.7) Lymphocytes # (Auto) 1.3 x10^3/uL (1.0-4.8) Monocytes # (Auto) 1.0 x10^3/uL (0.0-1.1) Eosinophils # (Auto) 0.1 x10^3/uL (0.0-0.7) Basophils # (Auto) 0.0 x10^3/uL (0.0-0.2) Lactic Acid Level 1.0 mmol/L (0.4-2.0) Prothrombin Time 15.8 SEC (11.7-14.0) Prothromb Time International Ratio 1.3 (0.8-1.1) Activated Partial Thromboplast Time > 150 SEC (24-38) Ionized Calcium 1.03 mmol/L (1.13-1.32) Total Bilirubin 0.3 mg/dL (0.2-1.0) Direct Bilirubin 0.1 mg/dL (0.0-0.2) Aspartate Amino Transf (AST/SGOT) 172 U/L (15-37) Alanine Aminotransferase (ALT/SGPT) 68 U/L (16-63) Alkaline Phosphatase 65 U/L (46-116) Total Protein 5.2 g/dL (6.4-8.2) Albumin 2.2 g/dL (3.4-5.0) Lipase 66 U/L (73-393) Test 04/19/17 08:00 O2 Saturation 98 % (92-99) Arterial Blood pH 7.34 (7.35-7.45) Arterial Blood pH (Temp corrected) 7.37 Arterial Blood pCO2 at Patient Temp 36 mmHg (35-46) Arterial Blood pCO2 (Temp correct) 33 mmHg Arterial Blood pO2 at Patient Temp 108 mmHg (65-108) Arterial Blood pO2 (Temp corrected) 97 mmHg Arterial Blood HCO3 19 mmol/L (21-28) Arterial Blood Base Excess -6 mmol/L (-3-3) FiO2 40 Microbiology 04/17/17 Blood Culture - Preliminary, Resulted NO GROWTH AFTER 1 DAY Medications Current Medications Heparin Sodium (Porcine) (Heparin Sodium) 10,000 unit STK-MED ONCE .ROUTE ; Start 04/17/17 at 19:03; Stop 04/17/17 at 19:04; Status DC Heparin Sodium (Porcine) (Heparin Sodium) 4,000 unit 1X ONCE IV Last administered on 04/17/17 19:05; Start 04/17/17 at 19:15; Stop 04/17/17 at 19:49; Status DC Sodium Chloride 1,000 ml @ 1,000 mls/hr Q1H IV Last administered on 04/17/17 19:07; Start 04/17/17 at 19:07; Stop 04/17/17 at 20:06; Status DC Midazolam HCl 100 ml @ As Directed STK-MED ONCE IV ; Start 04/17/17 at 19:15; Stop 04/17/17 at 19:16; Status DC Etomidate (Amidate) 20 mg STK-MED ONCE IV ; Start 04/17/17 at 19:15; Stop at 19:16; Status DC Succinylcholine Chloride (Anectine) 200 mg STK-MED ONCE .ROUTE ; Start 04/17/17 at 19:16; Stop 04/17/17 at 19:17; Status DC Heparin Sodium/ Sodium Chloride 1,500 ml @ As Directed STK-MED ONCE .ROUTE ; Start 04/17/17 at 19:24; Stop 04/17/17 at 19:25; Status DC Lidocaine HCl 20 ml STK-MED ONCE .ROUTE ; Start 04/17/17 at 19:24; Stop 04/17/17 at 19:25; Status DC Iodixanol (Visipaque 320) 100 ml STK-MED ONCE .ROUTE ; Start 04/17/17 at 19:24; Stop 04/17/17 at 19:25; Status DC Dopamine HCl/ Dextrose 250 ml @ 0 mls/hr CONT PRN IV SEE I/O RECORD Last administered on 04/17/17 19:32; Start 04/17/17 at 19:30; Stop 04/17/17 at 20:54; Status DC Dopamine HCl/ Dextrose 250 ml @ As Directed STK-MED ONCE IV ; Start 04/17/17 at 19:30; Stop 04/17/17 at 19:31; Status DC Ondansetron HCl (Zofran) 4 mg PRN Q8HRS PRN IV NAUSEA/VOMITING; Start 04/17/17 at 19:30; Stop 04/18/17 at 19:29; Status DC Sodium Chloride 1,000 ml @ 100 mls/hr Q10H IV Last administered on 04/18/17 12 :35; Start 04/17/17 at 19:30; Stop 04/18/17 at 19:29; Status DC Acetaminophen (Tylenol) 650 mg PRN Q4HRS PRN PO FEVER; Start 04/17/17 at 19:30; Stop 04/18/17 at 19:29; Status DC Heparin Sodium (Porcine) (Heparin Sodium) 10,000 unit STK-MED ONCE .ROUTE ; Start 04/17/17 at 20:16; Stop 04/17/17 at 20:17; Status DC Tirofiban/Sodium Chloride 0 ml @ As Directed STK-MED ONCE IV ; Start 04/17/17 at 20:16; Stop 04/17/17 at 20:17; Status DC Famotidine (Pepcid) 20 mg QHS IVP Last administered on 04/17/17 22:30; Start at 21:00; Stop 04/19/17 at 08:05; Status DC Etomidate (Amidate) 20 mg 1X ONCE IV Last administered on 04/17/17 19:00; Start 04/17/17 at 20:30; Stop 04/17/17 at 21:05; Status DC Succinylcholine Chloride (Anectine) 100 mg 1X ONCE IV Last administered on 04/17 19:00; Start 04/17/17 at 20:30; Stop 04/17/17 at 21:07; Status DC Lidocaine HCl/ Dextrose 500 ml @ 0 mls/hr 1X ONCE IV Last administered on 18:55; Start 04/17/17 at 20:30; Stop 04/17/17 at 21:08; Status DC Dopamine HCl/ Dextrose 250 ml @ 0 mls/hr CONT PRN IV SEE I/O RECORD Last administered on 04/19/17 05:06; Start 04/17/17 at 20:30 Heparin Sodium/ Dextrose 500 ml @ As Directed STK-MED ONCE IV ; Start 04/17/17 at 20:43; Stop 04/17/17 at 20:44; Status DC Heparin Sodium/ Dextrose 500 ml @ 0 mls/hr CONT PRN IV SEE I/O RECORD Last administered on 04/19/17 01:48; Start 04/17/17 at 20:45 Midazolam HCl (Versed) 5 mg 1X ONCE IV Last administered on 04/17/17 19:17; Start 04/17/17 at 21:00; Stop 04/17/17 at 21:07; Status DC Heparin Sodium (Porcine) (Heparin Sodium) 2,000 unit 1X ONCE IV Last administered on 04/17/17 20:59; Start 04/17/17 at 21:00; Stop 04/17/17 at 21:06; Status DC Iodixanol (Visipaque 320) 134 ml 1X ONCE IART Last administered on 04/17/17 20 :58; Start 04/17/17 at 21:00; Stop 04/17/17 at 21:04; Status DC Lidocaine HCl 20 ml 1X ONCE IJ Last administered on 04/17/17 20:58; Start 04/17 at 21:00; Stop 04/17/17 at 21:08; Status DC Fentanyl Citrate 30 ml @ As Directed STK-MED ONCE IV ; Start 04/17/17 at 21:09; Stop 04/17/17 at 21:10; Status DC Sodium Chloride 1,000 ml @ 1,000 mls/hr Q1H IV Last administered on 04/17/17 23:30; Start 04/17/17 at 21:30; Stop 04/18/17 at 03:42; Status DC Fentanyl Citrate (Fentanyl 2ml Vial) 25 mcg PRN Q30MIN PRN IV SED; Start at 21:30 Lorazepam (Ativan) 1 mg PRN Q30MIN PRN IV SEDATION; Start 04/17/17 at 21:30 Fentanyl Citrate 30 ml @ 2.5 mls/hr CONT PRN PRN IV IVF Last administered on 02:53; Start 04/17/17 at 21:30 Propofol 100 ml @ 0 mls/hr CONT PRN IV SEE I/O RECORD Last administered on 09:26; Start 04/17/17 at 21:30 Vecuronium [place] (Norcuron Bolus) DOSE AT 0.1 mg/kg PRN Q30MIN PRN IV SHIVERING Last administered on 04/18/17 16:00; Start 04/17/17 at 21:30 Meperidine HCl (Demerol) 12.5 mg PRN Q30MIN PRN IV SHIVERING Last administered on 04/18/17 04:17; Start 04/17/17 at 21:30; Stop 04/18/17 at 04:18; Status DC Multi-Ingred Cream/Lotion/Oil/ Oint (Artificial Tears Eye Oint) 1 balaji PRN Q6HRS PRN OU 0.5 INCH FOR DRY EYE Last administered on 04/18/17 23:57; Start at 21:30 Famotidine (Pepcid) 20 mg BID IVP Last administered on 04/19/17 09:26; Start at 09:00 Aspirin (Aspirin) 300 mg DAILY [place] Last administered on 04/19/17 09:26; Start at 09:00 Sodium Chloride (Normal Saline Flush) 3 ml QSHIFT PRN IV AFTER MEDS AND BLOOD DRAWS; Start 04/17/17 at 21:30 Acetaminophen (Tylenol) 650 mg Q6HRS NG ; Start 04/18/17 at 00:00; Stop 04/18/17 at 23:59; Status DC Acetaminophen (Acetaminophen Supp) 650 mg PRN Q6HRS PRN FL MILD PAIN / TEMP; Start 04/18/17 at 21:30 Acetaminophen (Tylenol) 650 mg PRN Q6HRS PRN NG MILD PAIN / TEMP; Start at 21:30 Info 1 ea DAILY PRN MC PER PROTOCOL; Start 04/19/17 at 21:30 Heparin Sodium/ Dextrose 500 ml @ 0 mls/hr CONT PRN IV SEE I/O RECORD; Start at 21:30; Stop 04/19/17 at 07:26; Status DC Heparin Sodium (Porcine) (Heparin Sodium) 1,450 unit PRN Q6HRS PRN IV FOR UFH LEVEL LESS THAN 0.2; Start 04/17/17 at 21:30 Sodium Chloride 1,000 ml @ 60 mls/hr [id number] IV Last administered on 04/19/17 10:21; Start 04/17/17 at 21:45 Midazolam HCl 100 ml @ 0 mls/hr CONT PRN IV SEE I/O RECORD; Start 04/17/17 at 22 :00 Sodium Bicarbonate 100 meq 1X ONCE IV Last administered on 04/18/17 02:02; Start 04/18/17 at 00:00; Stop 04/18/17 at 00:01; Status DC Amiodarone HCl 900 mg/Dextrose 518 ml @ 0 mls/hr 1X ONCE IV Last administered on 04/18/17 08:00; Start 04/18/17 at 08:00; Stop 04/18/17 at 08:01; Status DC Pneumococcal Polyvalent Vaccine (Do NOT chart on this placeholder) 1 each PRN DAILY PRN MC UNABLE TO RESPOND; Start 04/18/17 at 08:45 Amiodarone HCl 900 mg/Dextrose 518 ml @ 34.53 mls/ hr CONT PRN IV SEE I/O RECORD; Start 04/18/17 at 09:45 Potassium Chloride 50 ml @ 50 mls/hr 1X ONCE IV ; Start 04/18/17 at 10:30; Stop 04/18/17 at 10:30; Status DC Potassium Chloride 100 ml @ 100 mls/hr Q1H IV Last administered on 04/18/17 11 :39; Start 04/18/17 at 10:30; Stop 04/18/17 at 12:29; Status DC Ephedrine Sulfate 50 mg STK-MED ONCE IV ; Start 04/18/17 at 14:56; Stop 04/18/17 at 14:57; Status DC Potassium Chloride 50 ml @ 50 mls/hr Q1H IV Last administered on 04/18/17 19:23 ; Start 04/18/17 at 17:30; Stop 04/18/17 at 20:29; Status DC Magnesium Sulfate/ Dextrose 100 ml @ 100 mls/hr 1X ONCE IV Last administered on 04/18/17 17:10; Start 04/18/17 at 17:30; Stop 04/18/17 at 18:29; Status DC Calcium Gluconate (Calcium Gluconate) 1,000 mg 1X ONCE IV Last administered on 04/18/17 17:08; Start 04/18/17 at 17:15; Stop 04/18/17 at 17:16; Status DC Epinephrine HCl (EPINEPHrine SYRINGE) 1 mg STK-MED ONCE .ROUTE ; Start 04/17/17 at 17:03; Stop 04/18/17 at 17:03; Status DC Info (Anti-Coagulation Monitoring By Pharmacy) 1 each PRN DAILY PRN MC SEE COMMENTS Last administered on 04/19/17 08:06; Start 04/19/17 at 08:15 Chlorhexidine Gluconate (Peridex) 15 ml BID MM Last administered on 04/19/17 10 :21; Start 04/19/17 at 09:00 Active Scripts Active Reported [No home meds] Vitals/I & O Vital Sign - Last 24 Hours 04/18/17 04/18/17 04/18/17 04/18/17 12:00 12:00 13:00 13:10 Temp 87.4 89.6 87.4 89.6 Pulse 58 62 Resp 20 16 B/P (MAP) 139/70 (93) 131/58 (82) Pulse Ox 100 100 100 O2 Delivery Mechanical Ventilator Ventilator Ventilator Ventilator 04/18/17 04/18/17 04/18/17 04/18/17 14:00 15:00 15:30 16:00 Temp 91.9 92.2 91.9 92.2 Pulse 62 60 Resp 16 16 B/P (MAP) 122/59 (80) 136/66 (89) Pulse Ox 100 100 100 O2 Delivery Ventilator Ventilator Ventilator Mechanical Ventilator 04/18/17 04/18/17 04/18/17 04/18/17 16:00 16:59 17:00 18:00 Temp 92.2 92.1 91.9 92.2 92.1 91.9 Pulse 58 61 57 Resp 16 16 16 B/P (MAP) 124/53 (76) 127/54 (78) 148/61 (90) Pulse Ox 100 100 100 100 O2 Delivery Ventilator Ventilator Ventilator Ventilator 04/18/17 04/18/17 04/18/17 04/18/17 19:00 19:32 20:00 20:00 Temp 91.4 92.5 91.4 92.5 Pulse 58 58 Resp 16 16 B/P (MAP) 126/41 (69) 111/45 (67) Pulse Ox 100 100 100 O2 Delivery Ventilator Ventilator Ventilator Mechanical Ventilator 04/18/17 04/18/17 04/18/17 04/18/17 20:00 20:15 20:55 21:00 Temp 93.0 93.9 93.0 93.9 Pulse 58 58 60 Resp 16 16 B/P (MAP) 111/45 (67) 122/48 (72) 125/55 (78) Pulse Ox 100 100 100 O2 Delivery Ventilator Ventilator Ventilator 04/18/17 04/18/17 04/18/17 04/18/17 22:00 23:00 23:15 23:59 Temp 94.5 93.2 94.5 93.2 Pulse 60 64 52 Resp 16 16 B/P (MAP) 122/57 (78) 124/46 (72) 152/58 (89) Pulse Ox 100 100 100 O2 Delivery Ventilator Ventilator Ventilator 04/18/17 04/18/17 04/19/17 04/19/17 23:59 23:59 00:15 00:30 Pulse 52 51 54 Resp 16 16 16 B/P (MAP) 158/54 (88) 140/42 (74) 124/71 (88) Pulse Ox 100 100 100 O2 Delivery Ventilator Mechanical Ventilator Ventilator Ventilator 04/19/17 04/19/17 04/19/17 04/19/17 00:45 01:00 02:00 02:53 Temp 93.2 93.2 Pulse 57 54 Resp 16 16 16 B/P (MAP) 147/49 (81) 136/44 (74) Pulse Ox 100 100 100 100 O2 Delivery Ventilator Ventilator Ventilator Ventilator 04/19/17 04/19/17 04/19/17 04/19/17 03:00 03:10 03:23 04:00 Temp 92.2 92.2 Pulse 55 52 Resp 16 B/P (MAP) 135/57 (83) 144/46 (78) Pulse Ox 100 100 100 O2 Delivery Ventilator Ventilator 04/19/17 04/19/17 04/19/17 04/19/17 04:00 04:00 05:00 05:00 Temp 92.0 94.3 92.0 94.3 Pulse 55 58 Resp 16 16 B/P (MAP) 144/46 (78) 128/71 (90) Pulse Ox 100 100 100 O2 Delivery Ventilator Mechanical Ventilator Ventilator Ventilator 04/19/17 04/19/17 04/19/17 04/19/17 05:15 06:00 06:15 07:00 Temp 94.8 94.8 Pulse 56 56 54 58 Resp 16 16 16 16 B/P (MAP) 125/67 (86) 130/66 (87) 151/36 (74) 119/55 (76) Pulse Ox 100 100 100 100 O2 Delivery Ventilator Ventilator Ventilator Ventilator 04/19/17 04/19/17 04/19/17 04/19/17 07:24 08:00 08:00 08:00 Pulse 66 52 Resp 16 B/P (MAP) 110/69 (83) 110/69 (83) Pulse Ox 100 100 O2 Delivery Ventilator Mechanical Ventilator Ventilator 04/19/17 04/19/17 04/19/17 04/19/17 09:00 09:01 10:00 11:00 Pulse 66 62 75 Resp 16 16 16 B/P (MAP) 131/38 (69) 102/53 (69) 114/51 (72) Pulse Ox 100 100 100 100 O2 Delivery Ventilator Ventilator Ventilator Ventilator 04/19/17 11:10 Pulse Ox 98 O2 Delivery Ventilator Intake and Output 04/18/17 04/18/17 04/19/17 15:00 23:00 07:00 Intake Total 200 ml 4397.6 ml 1842 ml Output Total 1975 ml 1060 ml 620 ml Balance -1775 ml 3337.6 ml 1222 ml Nutrition Consultation Dietary Evaluation: Comments: REC tube feedings when medically stable Expected Outcomes/Goals: to meet > 50% est nutr needs Interpretation of weight loss: >20% in 1 year Malnutrition Findings: Body Fat Depletion (Non Severe: Mild Depletion Weight Status: Underweight ANTHONY MARTI III DO Apr 19, 2017 11:31
[2017-04-19 12:09] LABS: CALCIUM 6.6 mg/dL (8.5-10.1); CREATININE 0.5 mg/dL (0.7-1.3); GFR 164.9; MAGNESIUM 1.7 mg/dL (1.8-2.4); PHOSPHORUS 3.3 mg/dL (2.6-4.7); POTASSIUM 4.3 mmol/L (3.5-5.1)
[2017-04-19] MEDS: AMIODARONE 450 MG in IV DEXTROSE 5% 250 ML IV PRN (13:26)
[2017-04-19 14:49] LABS: HEMATOCRIT 45.2 % (39.0-53.0); HEMOGLOBIN 15.4 g/dL (13.0-17.5); RED BLOOD COUNT 4.41 x10^6/uL (4.30-5.70); RED CELL DISTRIBUTION WIDTH 14.3 % (11.5-14.5); WHITE BLOOD COUNT 13.1 x10^3/uL (4.0-11.0)
[2017-04-19 14:59] LABS: INR 1.4 (0.8-1.1); PROTHROMBIN TIME PATIENT 15.9 SEC (11.7-14.0)
[2017-04-19] MEDS ORDERED: MIDAZOLAM HCL/PF 5 MG/5 ML VIAL. ONE (16:21)
--- NOTE | 2017-04-19 16:27 | PDOC ---
PULMONARY PROGRESS NOTES Vitals Vital Signs Date Time Temp Pulse Resp B/P (MAP) Pulse Ox O2 Delivery O2 Flow Rate FiO2 04/19/17 15:00 79 16 93/51 (65) 100 Ventilator 04/19/17 06:00 94.8 94.8 Labs Laboratory Tests Test 04/17/17 18:59 04/17/17 19:14 04/17/17 22:00 04/17/17 23:08 White Blood Count 16.3 x10^3/uL (4.0-11.0) 21.3 x10^3/uL (4.0-11.0) Red Blood Count 4.67 x10^6/uL (4.30-5.70) 4.84 x10^6/uL (4.30-5.70) Hemoglobin 16.6 g/dL (13.0-17.5) 17.3 g/dL (13.0-17.5) Hematocrit 49.3 % (39.0-53.0) 50.9 % (39.0-53.0) Mean Corpuscular Volume 106 fL (79-100) 105 fL (79-100) Mean Corpuscular Hemoglobin 36 pg (25-35) 36 pg (25-35) Mean Corpuscular Hemoglobin Concent 34 g/dL (31-37) 34 g/dL (31-37) Red Cell Distribution Width 14.1 % (11.5-14.5) 14.7 % (11.5-14.5) Platelet Count 186 x10^3/uL (140-400) 208 x10^3/uL (140-400) Neutrophils (%) (Auto) 58 % (31-73) Lymphocytes (%) (Auto) 33 % (24-48) Monocytes (%) (Auto) 6 % (0-9) Eosinophils (%) (Auto) 3 % (0-3) Basophils (%) (Auto) 1 % (0-3) Neutrophils # (Auto) 9.4 x10^3uL (1.8-7.7) Lymphocytes # (Auto) 5.3 x10^3/uL (1.0-4.8) Monocytes # (Auto) 1.0 x10^3/uL (0.0-1.1) Eosinophils # (Auto) 0.5 x10^3/uL (0.0-0.7) Basophils # (Auto) 0.1 x10^3/uL (0.0-0.2) Sodium Level 136 mmol/L (136-145) Potassium Level 3.3 mmol/L (3.5-5.1) Chloride Level 99 mmol/L (98-107) Carbon Dioxide Level 15 mmol/L (21-32) Anion Gap 22 (6-14) Blood Urea Nitrogen 9 mg/dL (8-26) Creatinine 0.7 mg/dL (0.7-1.3) Estimated GFR (Cockcroft-Gault) 111.8 Glucose Level 137 mg/dL (70-99) Calcium Level 8.6 mg/dL (8.5-10.1) Magnesium Level 2.2 mg/dL (1.8-2.4) Total Bilirubin 0.6 mg/dL (0.2-1.0) Direct Bilirubin 0.2 mg/dL (0.0-0.2) Aspartate Amino Transf (AST/SGOT) 72 U/L (15-37) Alanine Aminotransferase (ALT/SGPT) 50 U/L (16-63) Alkaline Phosphatase 78 U/L (46-116) Creatine Kinase 94 U/L (39-308) 1501 U/L (39-308) Creatine Kinase MB (Mass) 1.5 ng/mL (0.0-3.6) 215.0 ng/mL (0.0-3.6) Creatine Kinase MB Relative Index 1.6 % (0-4) 14.3 % (0-4) Troponin I Quantitative 0.176 ng/mL (0.000-0.055) OW-Gve-Q-Type Natriuretic Peptide 679 pg/mL (0-124) Total Protein 6.9 g/dL (6.4-8.2) Albumin 3.4 g/dL (3.4-5.0) Lipase 112 U/L (73-393) Urine Color Yellow Urine Clarity Clear Urine pH 6.5 Urine Specific Wright <=1.005 Urine Protein 100 mg/dL (NEG-TRACE) Urine Glucose (UA) Negative mg/dL (NEG) Urine Ketones (Stick) Negative mg/dL (NEG) Urine Blood Trace (NEG) Urine Nitrite Negative (NEG) Urine Bilirubin Negative (NEG) Urine Urobilinogen Dipstick 0.2 mg/dL (0.2 mg/dL) Urine Leukocyte Esterase Negative (NEG) Urine RBC 1-2 /HPF (0-2) Urine WBC 0 /HPF (0-4) Urine Squamous Epithelial Cells Occ /LPF Urine Bacteria 0 /HPF (0-FEW) Urine Sperm Present /HPF Prothrombin Time 15.2 SEC (11.7-14.0) Prothromb Time International Ratio 1.3 (0.8-1.1) Activated Partial Thromboplast Time > 150 SEC (24-38) Heparin Anti-Xa Act, Unfractionated 0.58 IU/mL (0.30-0.70) Lactic Acid Level 4.3 mmol/L (0.4-2.0) Amylase Level 472 U/L (25-115) O2 Saturation 98 % (92-99) Arterial Blood pH 7.13 (7.35-7.45) Arterial Blood pH (Temp corrected) 7.18 Arterial Blood pCO2 at Patient Temp 57 mmHg (35-46) Arterial Blood pCO2 (Temp correct) 48 mmHg Arterial Blood pO2 at Patient Temp 157 mmHg (65-108) Arterial Blood pO2 (Temp corrected) 137 mmHg Arterial Blood HCO3 19 mmol/L (21-28) Arterial Blood Base Excess -11 mmol/L (-3-3) Test 04/17/17 23:39 04/18/17 02:25 04/18/17 02:35 04/18/17 06:30 Glucose (Fingerstick) 138 mg/dL (70-99) White Blood Count 20.9 x10^3/uL (4.0-11.0) Red Blood Count 4.98 x10^6/uL (4.30-5.70) Hemoglobin 17.3 g/dL (13.0-17.5) Hematocrit 51.6 % (39.0-53.0) Mean Corpuscular Volume 104 fL (79-100) Mean Corpuscular Hemoglobin 35 pg (25-35) Mean Corpuscular Hemoglobin Concent 34 g/dL (31-37) Red Cell Distribution Width 13.9 % (11.5-14.5) Platelet Count 169 x10^3/uL (140-400) Neutrophils (%) (Auto) 86 % (31-73) Lymphocytes (%) (Auto) 7 % (24-48) Monocytes (%) (Auto) 6 % (0-9) Eosinophils (%) (Auto) 0 % (0-3) Basophils (%) (Auto) 0 % (0-3) Neutrophils # (Auto) 17.9 x10^3uL (1.8-7.7) Lymphocytes # (Auto) 1.5 x10^3/uL (1.0-4.8) Monocytes # (Auto) 1.3 x10^3/uL (0.0-1.1) Eosinophils # (Auto) 0.0 x10^3/uL (0.0-0.7) Basophils # (Auto) 0.1 x10^3/uL (0.0-0.2) Segmented Neutrophils % 75 % (35-66) Band Neutrophils % 9 % (0-9) Lymphocytes % 11 % (24-48) Monocytes % 5 % (0-10) Platelet Estimate Adequate (ADEQUATE) Macrocytosis Present Prothrombin Time 14.3 SEC (11.7-14.0) Prothromb Time International Ratio 1.2 (0.8-1.1) Activated Partial Thromboplast Time > 150 SEC (24-38) Sodium Level 142 mmol/L (136-145) Potassium Level 3.3 mmol/L (3.5-5.1) Chloride Level 106 mmol/L (98-107) Carbon Dioxide Level 26 mmol/L (21-32) Anion Gap 10 (6-14) Blood Urea Nitrogen 8 mg/dL (8-26) Creatinine 0.4 mg/dL (0.7-1.3) Estimated GFR (Cockcroft-Gault) 213.3 Glucose Level 111 mg/dL (70-99) Calcium Level 6.8 mg/dL (8.5-10.1) Phosphorus Level 2.5 mg/dL (2.6-4.7) Magnesium Level 1.8 mg/dL (1.8-2.4) Troponin I Quantitative 72.121 ng/mL (0.000-0.055) Lactic Acid Level 1.7 mmol/L (0.4-2.0) Urine Collection Type U cath Urine Color Yellow Urine Clarity Clear Urine pH 7.5 Urine Specific Wright <=1.005 Urine Protein Negative mg/dL (NEG-TRACE) Urine Glucose (UA) Negative mg/dL (NEG) Urine Ketones (Stick) Negative mg/dL (NEG) Urine Blood Moderate (NEG) Urine Nitrite Negative (NEG) Urine Bilirubin Negative (NEG) Urine Urobilinogen Dipstick 0.2 mg/dL (0.2 mg/dL) Urine Leukocyte Esterase Negative (NEG) Urine RBC 11-20 /HPF (0-2) Urine WBC 0 /HPF (0-4) Urine Bacteria 0 /HPF (0-FEW) Urine Mucus Slight /LPF Test 04/18/17 08:05 04/18/17 08:10 04/18/17 08:30 04/18/17 11:50 Sodium Level 140 mmol/L (136-145) 137 mmol/L (136-145) Potassium Level 2.8 mmol/L (3.5-5.1) 3.1 mmol/L (3.5-5.1) Chloride Level 105 mmol/L (98-107) 103 mmol/L (98-107) Carbon Dioxide Level 25 mmol/L (21-32) 23 mmol/L (21-32) Anion Gap 10 (6-14) 11 (6-14) Blood Urea Nitrogen 7 mg/dL (8-26) 8 mg/dL (8-26) Creatinine 0.4 mg/dL (0.7-1.3) 0.6 mg/dL (0.7-1.3) Estimated GFR (Cockcroft-Gault) 213.3 133.6 Glucose Level 130 mg/dL (70-99) 259 mg/dL (70-99) Lactic Acid Level 1.6 mmol/L (0.4-2.0) Calcium Level 7.4 mg/dL (8.5-10.1) 6.6 mg/dL (8.5-10.1) Ionized Calcium 0.90 mmol/L (1.13-1.32) Phosphorus Level 1.7 mg/dL (2.6-4.7) 1.7 mg/dL (2.6-4.7) Magnesium Level 1.8 mg/dL (1.8-2.4) 1.6 mg/dL (1.8-2.4) Total Bilirubin 0.7 mg/dL (0.2-1.0) Direct Bilirubin 0.2 mg/dL (0.0-0.2) Aspartate Amino Transf (AST/SGOT) 391 U/L (15-37) Alanine Aminotransferase (ALT/SGPT) 90 U/L (16-63) Alkaline Phosphatase 78 U/L (46-116) Total Protein 6.5 g/dL (6.4-8.2) Albumin 3.0 g/dL (3.4-5.0) Lipase 64 U/L (73-393) Heparin Anti-Xa Act, Unfractionated 0.67 IU/mL (0.30-0.70) O2 Saturation 99 % (92-99) Arterial Blood pH 7.51 (7.35-7.45) Arterial Blood pH (Temp corrected) 7.61 Arterial Blood pCO2 at Patient Temp 24 mmHg (35-46) Arterial Blood pCO2 (Temp correct) 18 mmHg Arterial Blood pO2 at Patient Temp 401 mmHg (65-108) Arterial Blood pO2 (Temp corrected) 364 mmHg Arterial Blood HCO3 18 mmol/L (21-28) Arterial Blood Base Excess -2 mmol/L (-3-3) FiO2 100 Test 04/18/17 14:20 04/18/17 15:45 04/18/17 16:20 04/18/17 17:50 White Blood Count 14.0 x10^3/uL (4.0-11.0) Red Blood Count 4.60 x10^6/uL (4.30-5.70) Hemoglobin 16.1 g/dL (13.0-17.5) Hematocrit 48.0 % (39.0-53.0) Mean Corpuscular Volume 104 fL (79-100) Mean Corpuscular Hemoglobin 35 pg (25-35) Mean Corpuscular Hemoglobin Concent 34 g/dL (31-37) Red Cell Distribution Width 13.7 % (11.5-14.5) Platelet Count 132 x10^3/uL (140-400) Prothrombin Time 15.9 SEC (11.7-14.0) Prothromb Time International Ratio 1.4 (0.8-1.1) Heparin Anti-Xa Act, Unfractionated 0.64 IU/mL (0.30-0.70) 0.90 IU/mL (0.30-0.70) Lactic Acid Level 2.3 mmol/L (0.4-2.0) O2 Saturation 98 % (92-99) Arterial Blood pH 7.31 (7.35-7.45) Arterial Blood pH (Temp corrected) 7.36 Arterial Blood pCO2 at Patient Temp 42 mmHg (35-46) Arterial Blood pCO2 (Temp correct) 36 mmHg Arterial Blood pO2 at Patient Temp 127 mmHg (65-108) Arterial Blood pO2 (Temp corrected) 107 mmHg Arterial Blood HCO3 21 mmol/L (21-28) Arterial Blood Base Excess -5 mmol/L (-3-3) FiO2 40 Sodium Level 142 mmol/L (136-145) Potassium Level 2.9 mmol/L (3.5-5.1) Chloride Level 110 mmol/L (98-107) Carbon Dioxide Level 23 mmol/L (21-32) Anion Gap 9 (6-14) Blood Urea Nitrogen 8 mg/dL (8-26) Creatinine 0.6 mg/dL (0.7-1.3) Estimated GFR (Cockcroft-Gault) 133.6 Glucose Level 115 mg/dL (70-99) Calcium Level 6.5 mg/dL (8.5-10.1) Phosphorus Level 2.5 mg/dL (2.6-4.7) Magnesium Level 1.7 mg/dL (1.8-2.4) Test 04/18/17 20:51 04/18/17 22:30 04/19/17 00:05 04/19/17 01:40 Sodium Level 141 mmol/L (136-145) 141 mmol/L (136-145) Potassium Level 4.4 mmol/L (3.5-5.1) 4.2 mmol/L (3.5-5.1) Chloride Level 111 mmol/L (98-107) 110 mmol/L (98-107) Carbon Dioxide Level 23 mmol/L (21-32) 21 mmol/L (21-32) Anion Gap 7 (6-14) 10 (6-14) Blood Urea Nitrogen 8 mg/dL (8-26) 9 mg/dL (8-26) Creatinine 0.5 mg/dL (0.7-1.3) 0.5 mg/dL (0.7-1.3) Estimated GFR (Cockcroft-Gault) 164.9 164.9 Glucose Level 95 mg/dL (70-99) 110 mg/dL (70-99) Calcium Level 6.8 mg/dL (8.5-10.1) 6.9 mg/dL (8.5-10.1) Phosphorus Level 2.6 mg/dL (2.6-4.7) 3.7 mg/dL (2.6-4.7) Magnesium Level 2.1 mg/dL (1.8-2.4) 2.0 mg/dL (1.8-2.4) White Blood Count 14.4 x10^3/uL (4.0-11.0) Red Blood Count 4.74 x10^6/uL (4.30-5.70) Hemoglobin 16.6 g/dL (13.0-17.5) Hematocrit 49.9 % (39.0-53.0) Mean Corpuscular Volume 105 fL (79-100) Mean Corpuscular Hemoglobin 35 pg (25-35) Mean Corpuscular Hemoglobin Concent 33 g/dL (31-37) Red Cell Distribution Width 14.2 % (11.5-14.5) Platelet Count 135 x10^3/uL (140-400) Prothrombin Time 15.4 SEC (11.7-14.0) Prothromb Time International Ratio 1.3 (0.8-1.1) Activated Partial Thromboplast Time > 150 SEC (24-38) Lactic Acid Level 1.6 mmol/L (0.4-2.0) Heparin Anti-Xa Act, Unfractionated 0.34 IU/mL (0.30-0.70) Test 04/19/17 04:10 04/19/17 06:00 04/19/17 07:50 04/19/17 08:00 Sodium Level 140 mmol/L (136-145) 139 mmol/L (136-145) Potassium Level 4.6 mmol/L (3.5-5.1) 4.2 mmol/L (3.5-5.1) Chloride Level 111 mmol/L (98-107) 109 mmol/L (98-107) Carbon Dioxide Level 21 mmol/L (21-32) 21 mmol/L (21-32) Anion Gap 8 (6-14) 9 (6-14) Blood Urea Nitrogen 7 mg/dL (8-26) 7 mg/dL (8-26) Creatinine 0.5 mg/dL (0.7-1.3) 0.5 mg/dL (0.7-1.3) Estimated GFR (Cockcroft-Gault) 164.9 164.9 Glucose Level 112 mg/dL (70-99) 108 mg/dL (70-99) Calcium Level 6.8 mg/dL (8.5-10.1) 7.2 mg/dL (8.5-10.1) Phosphorus Level 3.4 mg/dL (2.6-4.7) 3.4 mg/dL (2.6-4.7) Magnesium Level 1.9 mg/dL (1.8-2.4) 1.9 mg/dL (1.8-2.4) White Blood Count 16.2 x10^3/uL (4.0-11.0) Red Blood Count 4.66 x10^6/uL (4.30-5.70) Hemoglobin 16.2 g/dL (13.0-17.5) Hematocrit 48.7 % (39.0-53.0) Mean Corpuscular Volume 105 fL (79-100) Mean Corpuscular Hemoglobin 35 pg (25-35) Mean Corpuscular Hemoglobin Concent 33 g/dL (31-37) Red Cell Distribution Width 14.3 % (11.5-14.5) Platelet Count 111 x10^3/uL (140-400) Neutrophils (%) (Auto) 85 % (31-73) Lymphocytes (%) (Auto) 8 % (24-48) Monocytes (%) (Auto) 6 % (0-9) Eosinophils (%) (Auto) 0 % (0-3) Basophils (%) (Auto) 0 % (0-3) Neutrophils # (Auto) 13.8 x10^3uL (1.8-7.7) Lymphocytes # (Auto) 1.3 x10^3/uL (1.0-4.8) Monocytes # (Auto) 1.0 x10^3/uL (0.0-1.1) Eosinophils # (Auto) 0.1 x10^3/uL (0.0-0.7) Basophils # (Auto) 0.0 x10^3/uL (0.0-0.2) Lactic Acid Level 1.0 mmol/L (0.4-2.0) Prothrombin Time 15.8 SEC (11.7-14.0) Prothromb Time International Ratio 1.3 (0.8-1.1) Activated Partial Thromboplast Time > 150 SEC (24-38) Heparin Anti-Xa Act, Unfractionated 0.37 IU/mL (0.30-0.70) Ionized Calcium 1.03 mmol/L (1.13-1.32) Total Bilirubin 0.3 mg/dL (0.2-1.0) Direct Bilirubin 0.1 mg/dL (0.0-0.2) Aspartate Amino Transf (AST/SGOT) 172 U/L (15-37) Alanine Aminotransferase (ALT/SGPT) 68 U/L (16-63) Alkaline Phosphatase 65 U/L (46-116) Total Protein 5.2 g/dL (6.4-8.2) Albumin 2.2 g/dL (3.4-5.0) Lipase 66 U/L (73-393) O2 Saturation 98 % (92-99) Arterial Blood pH 7.34 (7.35-7.45) Arterial Blood pH (Temp corrected) 7.37 Arterial Blood pCO2 at Patient Temp 36 mmHg (35-46) Arterial Blood pCO2 (Temp correct) 33 mmHg Arterial Blood pO2 at Patient Temp 108 mmHg (65-108) Arterial Blood pO2 (Temp corrected) 97 mmHg Arterial Blood HCO3 19 mmol/L (21-28) Arterial Blood Base Excess -6 mmol/L (-3-3) FiO2 40 Test 04/19/17 11:45 04/19/17 14:40 Sodium Level 143 mmol/L (136-145) Potassium Level 4.3 mmol/L (3.5-5.1) Chloride Level 111 mmol/L (98-107) Carbon Dioxide Level 22 mmol/L (21-32) Anion Gap 10 (6-14) Blood Urea Nitrogen 7 mg/dL (8-26) Creatinine 0.5 mg/dL (0.7-1.3) Estimated GFR (Cockcroft-Gault) 164.9 Glucose Level 103 mg/dL (70-99) Calcium Level 6.6 mg/dL (8.5-10.1) Phosphorus Level 3.3 mg/dL (2.6-4.7) Magnesium Level 1.7 mg/dL (1.8-2.4) White Blood Count 13.1 x10^3/uL (4.0-11.0) Red Blood Count 4.41 x10^6/uL (4.30-5.70) Hemoglobin 15.4 g/dL (13.0-17.5) Hematocrit 45.2 % (39.0-53.0) Mean Corpuscular Volume 102 fL (79-100) Mean Corpuscular Hemoglobin 35 pg (25-35) Mean Corpuscular Hemoglobin Concent 34 g/dL (31-37) Red Cell Distribution Width 14.3 % (11.5-14.5) Platelet Count 98 x10^3/uL (140-400) Prothrombin Time 15.9 SEC (11.7-14.0) Prothromb Time International Ratio 1.4 (0.8-1.1) Activated Partial Thromboplast Time 113 SEC (24-38) Lactic Acid Level 1.1 mmol/L (0.4-2.0) Laboratory Tests Test 04/18/17 16:20 04/18/17 17:50 04/18/17 20:51 04/18/17 22:30 Sodium Level 142 mmol/L (136-145) 141 mmol/L (136-145) Potassium Level 2.9 mmol/L (3.5-5.1) 4.4 mmol/L (3.5-5.1) Chloride Level 110 mmol/L (98-107) 111 mmol/L (98-107) Carbon Dioxide Level 23 mmol/L (21-32) 23 mmol/L (21-32) Anion Gap 9 (6-14) 7 (6-14) Blood Urea Nitrogen 8 mg/dL (8-26) 8 mg/dL (8-26) Creatinine 0.6 mg/dL (0.7-1.3) 0.5 mg/dL (0.7-1.3) Estimated GFR (Cockcroft-Gault) 133.6 164.9 Glucose Level 115 mg/dL (70-99) 95 mg/dL (70-99) Calcium Level 6.5 mg/dL (8.5-10.1) 6.8 mg/dL (8.5-10.1) Phosphorus Level 2.5 mg/dL (2.6-4.7) 2.6 mg/dL (2.6-4.7) Magnesium Level 1.7 mg/dL (1.8-2.4) 2.1 mg/dL (1.8-2.4) Heparin Anti-Xa Act, Unfractionated 0.90 IU/mL (0.30-0.70) White Blood Count 14.4 x10^3/uL (4.0-11.0) Red Blood Count 4.74 x10^6/uL (4.30-5.70) Hemoglobin 16.6 g/dL (13.0-17.5) Hematocrit 49.9 % (39.0-53.0) Mean Corpuscular Volume 105 fL (79-100) Mean Corpuscular Hemoglobin 35 pg (25-35) Mean Corpuscular Hemoglobin Concent 33 g/dL (31-37) Red Cell Distribution Width 14.2 % (11.5-14.5) Platelet Count 135 x10^3/uL (140-400) Prothrombin Time 15.4 SEC (11.7-14.0) Prothromb Time International Ratio 1.3 (0.8-1.1) Activated Partial Thromboplast Time > 150 SEC (24-38) Lactic Acid Level 1.6 mmol/L (0.4-2.0) Test 04/19/17 00:05 04/19/17 01:40 04/19/17 04:10 04/19/17 06:00 Sodium Level 141 mmol/L (136-145) 140 mmol/L (136-145) Potassium Level 4.2 mmol/L (3.5-5.1) 4.6 mmol/L (3.5-5.1) Chloride Level 110 mmol/L (98-107) 111 mmol/L (98-107) Carbon Dioxide Level 21 mmol/L (21-32) 21 mmol/L (21-32) Anion Gap 10 (6-14) 8 (6-14) Blood Urea Nitrogen 9 mg/dL (8-26) 7 mg/dL (8-26) Creatinine 0.5 mg/dL (0.7-1.3) 0.5 mg/dL (0.7-1.3) Estimated GFR (Cockcroft-Gault) 164.9 164.9 Glucose Level 110 mg/dL (70-99) 112 mg/dL (70-99) Calcium Level 6.9 mg/dL (8.5-10.1) 6.8 mg/dL (8.5-10.1) Phosphorus Level 3.7 mg/dL (2.6-4.7) 3.4 mg/dL (2.6-4.7) Magnesium Level 2.0 mg/dL (1.8-2.4) 1.9 mg/dL (1.8-2.4) Heparin Anti-Xa Act, Unfractionated 0.34 IU/mL (0.30-0.70) White Blood Count 16.2 x10^3/uL (4.0-11.0) Red Blood Count 4.66 x10^6/uL (4.30-5.70) Hemoglobin 16.2 g/dL (13.0-17.5) Hematocrit 48.7 % (39.0-53.0) Mean Corpuscular Volume 105 fL (79-100) Mean Corpuscular Hemoglobin 35 pg (25-35) Mean Corpuscular Hemoglobin Concent 33 g/dL (31-37) Red Cell Distribution Width 14.3 % (11.5-14.5) Platelet Count 111 x10^3/uL (140-400) Neutrophils (%) (Auto) 85 % (31-73) Lymphocytes (%) (Auto) 8 % (24-48) Monocytes (%) (Auto) 6 % (0-9) Eosinophils (%) (Auto) 0 % (0-3) Basophils (%) (Auto) 0 % (0-3) Neutrophils # (Auto) 13.8 x10^3uL (1.8-7.7) Lymphocytes # (Auto) 1.3 x10^3/uL (1.0-4.8) Monocytes # (Auto) 1.0 x10^3/uL (0.0-1.1) Eosinophils # (Auto) 0.1 x10^3/uL (0.0-0.7) Basophils # (Auto) 0.0 x10^3/uL (0.0-0.2) Lactic Acid Level 1.0 mmol/L (0.4-2.0) Test 04/19/17 07:50 04/19/17 08:00 04/19/17 11:45 04/19/17 14:40 Prothrombin Time 15.8 SEC (11.7-14.0) 15.9 SEC (11.7-14.0) Prothromb Time International Ratio 1.3 (0.8-1.1) 1.4 (0.8-1.1) Activated Partial Thromboplast Time > 150 SEC (24-38) 113 SEC (24-38) Heparin Anti-Xa Act, Unfractionated 0.37 IU/mL (0.30-0.70) Sodium Level 139 mmol/L (136-145) 143 mmol/L (136-145) Potassium Level 4.2 mmol/L (3.5-5.1) 4.3 mmol/L (3.5-5.1) Chloride Level 109 mmol/L (98-107) 111 mmol/L (98-107) Carbon Dioxide Level 21 mmol/L (21-32) 22 mmol/L (21-32) Anion Gap 9 (6-14) 10 (6-14) Blood Urea Nitrogen 7 mg/dL (8-26) 7 mg/dL (8-26) Creatinine 0.5 mg/dL (0.7-1.3) 0.5 mg/dL (0.7-1.3) Estimated GFR (Cockcroft-Gault) 164.9 164.9 Glucose Level 108 mg/dL (70-99) 103 mg/dL (70-99) Calcium Level 7.2 mg/dL (8.5-10.1) 6.6 mg/dL (8.5-10.1) Ionized Calcium 1.03 mmol/L (1.13-1.32) Phosphorus Level 3.4 mg/dL (2.6-4.7) 3.3 mg/dL (2.6-4.7) Magnesium Level 1.9 mg/dL (1.8-2.4) 1.7 mg/dL (1.8-2.4) Total Bilirubin 0.3 mg/dL (0.2-1.0) Direct Bilirubin 0.1 mg/dL (0.0-0.2) Aspartate Amino Transf (AST/SGOT) 172 U/L (15-37) Alanine Aminotransferase (ALT/SGPT) 68 U/L (16-63) Alkaline Phosphatase 65 U/L (46-116) Total Protein 5.2 g/dL (6.4-8.2) Albumin 2.2 g/dL (3.4-5.0) Lipase 66 U/L (73-393) O2 Saturation 98 % (92-99) Arterial Blood pH 7.34 (7.35-7.45) Arterial Blood pH (Temp corrected) 7.37 Arterial Blood pCO2 at Patient Temp 36 mmHg (35-46) Arterial Blood pCO2 (Temp correct) 33 mmHg Arterial Blood pO2 at Patient Temp 108 mmHg (65-108) Arterial Blood pO2 (Temp corrected) 97 mmHg Arterial Blood HCO3 19 mmol/L (21-28) Arterial Blood Base Excess -6 mmol/L (-3-3) FiO2 40 White Blood Count 13.1 x10^3/uL (4.0-11.0) Red Blood Count 4.41 x10^6/uL (4.30-5.70) Hemoglobin 15.4 g/dL (13.0-17.5) Hematocrit 45.2 % (39.0-53.0) Mean Corpuscular Volume 102 fL (79-100) Mean Corpuscular Hemoglobin 35 pg (25-35) Mean Corpuscular Hemoglobin Concent 34 g/dL (31-37) Red Cell Distribution Width 14.3 % (11.5-14.5) Platelet Count 98 x10^3/uL (140-400) Lactic Acid Level 1.1 mmol/L (0.4-2.0) Medications Active Scripts Medications Dose Route/Sig Max Daily Dose Days Date Category [No home meds] 04/18/17 Reported Impression . ACUTE RESPIRATORY FAILURE SEC TO CARDIAC ARREST VF/DEFIBRILLATED IN FIELD CAD PER CARD HYPOKALEMIA POSSIBLE ANOXIC BRAIN INJURY CARDIOGENIC SHOCK Brief cath note. Initial AO pressure 98/58, post IABP Ao 136/78 Coronaries Left main. 45-50% lesion. LAD. Mid 95% lesion. Distal collaterals to the RCA. LCX. Proximal 80% lesion, OM1 85% lesion. RCA. Proximal chronic occlusion with distal collaterals from the RCA and LAD. No LV gram. AO root and abd. aorta without significant lesions. IABP placed from right femoral access without complications. Conclusions. 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 IABP placed with significant improvement in BP. Will consider for CABG. The patient remains on a ventilator. Discussed with the patients family. Full report to follow. Plan . SPOKE WITH FAMILY NOT READY FOR EXTUBATIO AWAKE BUT NOT READY FOR TRIAL CONTINUE SUPPORT D/C VERSED AND FENTANYL PRN SEDATION D/W RT AND RN PRESSORS PER APRIL ALARCON MD Apr 19, 2017 16:27
[2017-04-19] MEDS ORDERED: fentaNYL PF VIAL 100 MCG/2 ML VIAL IV PRN (16:30)
[2017-04-19] MEDS ORDERED: MIDAZOLAM HCL/PF 2 MG/2 ML VIAL. IV PRN (16:30)
[2017-04-19 16:32] LABS: CALCIUM 6.9 mg/dL (8.5-10.1); CREATININE 0.5 mg/dL (0.7-1.3); GFR 164.9; MAGNESIUM 1.8 mg/dL (1.8-2.4); PHOSPHORUS 3.4 mg/dL (2.6-4.7); POTASSIUM 4.2 mmol/L (3.5-5.1)
[2017-04-19] MEDS ORDERED: HEPARIN for IV BOLUS 10,000 UNIT/10 ML VIAL. IV PRN (16:45)
[2017-04-19] MEDS ORDERED: HEPARIN 25,000UTS/500ML PREMIX 500 ML IV PRN (16:45)
[2017-04-19] MEDS ORDERED: MIDAZOLAM HCL/PF 5 MG/5 ML VIAL. IV ONE (16:45)
[2017-04-19] MEDS: MIDAZOLAM HCL/PF 2 MG/2 ML VIAL. IV PRN ×2 (18:39→22:00)
[2017-04-19] MEDS: fentaNYL PF VIAL 100 MCG/2 ML VIAL IV PRN ×2 (19:20→23:13)
[2017-04-19 21:13] LABS: CALCIUM 7.3 mg/dL (8.5-10.1); CREATININE 0.4 mg/dL (0.7-1.3); GFR 213.3; MAGNESIUM 1.8 mg/dL (1.8-2.4); PHOSPHORUS 2.8 mg/dL (2.6-4.7); POTASSIUM 3.6 mmol/L (3.5-5.1)
[2017-04-19] MEDS ORDERED: ELECTROLYTE (ICU) PROTOCOL. MC PRN (21:30)
[2017-04-20] VITALS (28 sets, daily range): BP systolic 92–137; BP diastolic 40–84
[2017-04-20] MEDS: MIDAZOLAM HCL/PF 2 MG/2 ML VIAL. IV PRN ×4 (00:02→07:24)
[2017-04-20 00:37] LABS: CALCIUM 7.3 mg/dL (8.5-10.1); CREATININE 0.4 mg/dL (0.7-1.3); GFR 213.3; MAGNESIUM 1.7 mg/dL (1.8-2.4); PHOSPHORUS 2.6 mg/dL (2.6-4.7); POTASSIUM 3.7 mmol/L (3.5-5.1)
[2017-04-20] MEDS: AMIODARONE 450 MG in IV DEXTROSE 5% 250 ML IV PRN ×2 (03:37→17:51)
[2017-04-20] MEDS: fentaNYL PF VIAL 100 MCG/2 ML VIAL IV PRN ×3 (04:34→23:27)
[2017-04-20 07:49] LABS: HCO3 ABG 22 mmol/L (21-28); PCO2 ABG 33 mmHg (35-46); PH ABG 7.44 (7.35-7.45); PO2 ABG 171 mmHg (65-108); SAT O2 ABG 99 % (92-99)
[2017-04-20 07:51] LABS: FIO2 ABG 40
[2017-04-20 08:00] LABS: POTASSIUM ISTAT 3.2 mmol/L (3.5-5.0)
[2017-04-20] MEDS: ANTI-COAG MONITOR BY PHARMACY. MC PRN (08:40)
[2017-04-20 09:17] LABS: HEMATOCRIT 38.1 % (39.0-53.0); HEMOGLOBIN 12.7 g/dL (13.0-17.5); RED BLOOD COUNT 3.67 x10^6/uL (4.30-5.70); RED CELL DISTRIBUTION WIDTH 14.1 % (11.5-14.5); WHITE BLOOD COUNT 13.6 x10^3/uL (4.0-11.0)
[2017-04-20] MEDS: FAMOTIDINE 20 MG/2 ML VIAL IVP SCH ×2 (09:29→21:47)
[2017-04-20] MEDS: CHLORHEXIDINE 0.12% 15 ML MOUTHWASH. MM SCH ×2 (09:29→21:47)
[2017-04-20] MEDS: ASPIRIN 300 MG SUPP.RECT PR SCH (09:29)
[2017-04-20 09:30] LABS: ALBUMIN 1.8 g/dL (3.4-5.0); DIRECT BILIRUBIN 0.1 mg/dL (0.0-0.2); TOTAL BILIRUBIN 0.3 mg/dL (0.2-1.0); TOTAL PROTEIN 4.4 g/dL (6.4-8.2)
--- NOTE | 2017-04-20 09:44 | RAD ---
Portable chest, 04/20/2017: History: Respiratory failure Comparison is made to yesterday's study. The patient is rotated to the left. The ET tube tip lies well above the radha. An NG tube extends into the stomach. The heart is at the upper limits of normal in size. There is an ongoing dense retrocardiac opacity obscuring the hemidiaphragm. The pulmonary vascularity is prominent. There are mild perihilar opacities with loss of vascular margination, particularly on the left. The appearance suggests mild pulmonary edema. Similar findings were present on yesterday's study. No new abnormality is detected. IMPRESSION: 1. Stable tube positions. 2. Probable mild parahilar-perivascular pulmonary edema. 3. Retrocardiac left basilar opacity suggesting dense left lower lobe consolidation, although a diaphragmatic eventration or some other type of mass cannot be excluded. CT scanning may be useful for further evaluation, if clinically indicated.
[2017-04-20 10:01] LABS: HCO3 ABG 20 mmol/L (21-28); PCO2 ABG 31 mmHg (35-46); PH ABG 7.42 (7.35-7.45); PO2 ABG 148 mmHg (65-108); SAT O2 ABG 99 % (92-99)
[2017-04-20 10:03] LABS: FIO2 ABG 40
[2017-04-20] MEDS ORDERED: MAGNESIUM SULFATE 2GM 50 ML IV ONE (11:45)
--- NOTE | 2017-04-20 13:40 | PDOC ---
CARDIO Progress Notes Date and Time Date of Service 04/20/17 Time of Evaluation 1120 Subjective Subjective: Other (intubated. alert- responding appropriately ) Vitals Vitals Vital Signs Date Time Temp Pulse Resp B/P (MAP) Pulse Ox O2 Delivery O2 Flow Rate FiO2 04/20/17 13:00 75 24 114/60 (78) 95 Nasal Cannula 2.0 04/20/17 08:00 98.1 98.1 Weight Weight [ ] Input and Output Intake and Output Intake and Output 04/20/17 07:00 Intake Total 4402 ml Output Total 4090 ml Balance 312 ml IV Total 4402 ml Output Urine Total 3790 ml Gastric Drainage Total 300 ml Laboratory Labs Laboratory Tests Test 04/19/17 14:40 04/19/17 16:11 04/19/17 20:25 04/19/17 20:40 White Blood Count 13.1 x10^3/uL (4.0-11.0) Red Blood Count 4.41 x10^6/uL (4.30-5.70) Hemoglobin 15.4 g/dL (13.0-17.5) Hematocrit 45.2 % (39.0-53.0) Mean Corpuscular Volume 102 fL (79-100) Mean Corpuscular Hemoglobin 35 pg (25-35) Mean Corpuscular Hemoglobin Concent 34 g/dL (31-37) Red Cell Distribution Width 14.3 % (11.5-14.5) Platelet Count 98 x10^3/uL (140-400) Prothrombin Time 15.9 SEC (11.7-14.0) Prothromb Time International Ratio 1.4 (0.8-1.1) Activated Partial Thromboplast Time 113 SEC (24-38) Heparin Anti-Xa Act, Unfractionated 0.28 IU/mL (0.30-0.70) 0.11 IU/mL (0.30-0.70) Lactic Acid Level 1.1 mmol/L (0.4-2.0) Sodium Level 142 mmol/L (136-145) 139 mmol/L (136-145) Potassium Level 4.2 mmol/L (3.5-5.1) 3.6 mmol/L (3.5-5.1) Chloride Level 112 mmol/L (98-107) 109 mmol/L (98-107) Carbon Dioxide Level 23 mmol/L (21-32) 22 mmol/L (21-32) Anion Gap 7 (6-14) 8 (6-14) Blood Urea Nitrogen 6 mg/dL (8-26) 6 mg/dL (8-26) Creatinine 0.5 mg/dL (0.7-1.3) 0.4 mg/dL (0.7-1.3) Estimated GFR (Cockcroft-Gault) 164.9 213.3 Glucose Level 105 mg/dL (70-99) 123 mg/dL (70-99) Calcium Level 6.9 mg/dL (8.5-10.1) 7.3 mg/dL (8.5-10.1) Phosphorus Level 3.4 mg/dL (2.6-4.7) 2.8 mg/dL (2.6-4.7) Magnesium Level 1.8 mg/dL (1.8-2.4) 1.8 mg/dL (1.8-2.4) Test 04/20/17 00:00 04/20/17 02:55 04/20/17 07:45 04/20/17 09:00 Sodium Level 140 mmol/L (136-145) Potassium Level 3.7 mmol/L (3.5-5.1) Chloride Level 108 mmol/L (98-107) Carbon Dioxide Level 22 mmol/L (21-32) Anion Gap 10 (6-14) Blood Urea Nitrogen 5 mg/dL (8-26) Creatinine 0.4 mg/dL (0.7-1.3) Estimated GFR (Cockcroft-Gault) 213.3 Glucose Level 119 mg/dL (70-99) Calcium Level 7.3 mg/dL (8.5-10.1) Phosphorus Level 2.6 mg/dL (2.6-4.7) Magnesium Level 1.7 mg/dL (1.8-2.4) Heparin Anti-Xa Act, Unfractionated 0.39 IU/mL (0.30-0.70) 0.40 IU/mL (0.30-0.70) O2 Saturation 99 % (92-99) Arterial Blood pH 7.44 (7.35-7.45) Arterial Blood pCO2 at Patient Temp 33 mmHg (35-46) Arterial Blood pO2 at Patient Temp 171 mmHg (65-108) Arterial Blood HCO3 22 mmol/L (21-28) Arterial Blood Base Excess -1 mmol/L (-3-3) FiO2 40 White Blood Count 13.6 x10^3/uL (4.0-11.0) Red Blood Count 3.67 x10^6/uL (4.30-5.70) Hemoglobin 12.7 g/dL (13.0-17.5) Hematocrit 38.1 % (39.0-53.0) Mean Corpuscular Volume 104 fL (79-100) Mean Corpuscular Hemoglobin 35 pg (25-35) Mean Corpuscular Hemoglobin Concent 33 g/dL (31-37) Red Cell Distribution Width 14.1 % (11.5-14.5) Platelet Count 69 x10^3/uL (140-400) Ionized Calcium 0.98 mmol/L (1.13-1.32) Total Bilirubin 0.3 mg/dL (0.2-1.0) Direct Bilirubin 0.1 mg/dL (0.0-0.2) Aspartate Amino Transf (AST/SGOT) 65 U/L (15-37) Alanine Aminotransferase (ALT/SGPT) 42 U/L (16-63) Alkaline Phosphatase 57 U/L (46-116) Total Protein 4.4 g/dL (6.4-8.2) Albumin 1.8 g/dL (3.4-5.0) Lipase 40 U/L (73-393) Test 04/20/17 09:40 O2 Saturation 99 % (92-99) Arterial Blood pH 7.42 (7.35-7.45) Arterial Blood pCO2 at Patient Temp 31 mmHg (35-46) Arterial Blood pO2 at Patient Temp 148 mmHg (65-108) Arterial Blood HCO3 20 mmol/L (21-28) Arterial Blood Base Excess -4 mmol/L (-3-3) FiO2 40 Microbiology Micro Microbiology 04/17/17 Blood Culture - Preliminary, Resulted NO GROWTH AFTER 2 DAYS Physical Exam HEENT: Neck Supple W Full Motion Chest: Symmetric LUNGS: Other (intubated ) Heart: S1S2, RRR Abdomen: Soft N/T Extremities: No Edema Neurology: alert, follow commands Assessment Assessment 1. VF arrest; on Amio gtt 2. 3V CAD; re-warmed. LVEF preserved. Intra-aortic pump functioning normally 3. Cardiogenic shock; requiring pressors support. 4. Acute respiratory failure secondary to #1; extubate later today as able. Per pulm Recommendations Neuro status appears to be intact as patient is alert ad following commands. Extubation today as able. Balloon pump removal tomorrow if patient is stable. Plan for CABG following stabilization as per CTS. Continue present medications; wean dopamine as able Supportive care. JUAN DIEGO RANGEL APRN Apr 20, 2017 13:40
--- NOTE | 2017-04-20 13:53 | PDOC ---
PROGRESS NOTES Chief Complaint Chief Complaint 1. Post code 2. cardiac arrest, vifb, 2/2 acute [place] likely, possible STEMI 3. ACUTE resp failure with cardiac arrest 4. hypokalemia 5. shock ,cardiogenic likely 6. leukocytosis, reactive 7. AMS, from cardiac arrest 8. Multivessel disease including left main History of Present Illness History of Present Illness Seen in the ICU. Patient extubated. Patient opening eyes spontaneously though still unresponsive to speech Vitals Vitals Vital Signs Date Time Temp Pulse Resp B/P (MAP) Pulse Ox O2 Delivery O2 Flow Rate FiO2 04/20/17 13:38 98.4 67 21 98/40 (59) 98 Nasal Cannula 2.0 98.4 Physical Exam General: Other (extubated though unresponsive to speech) Heart: Normal S1, Normal S2 Abdomen: Soft Extremities: No edema, Other (1+ left DP and right DP by Doppler) Skin: No rashes Labs LABS Laboratory Tests Test 04/19/17 14:40 04/19/17 16:11 04/19/17 20:25 04/19/17 20:40 White Blood Count 13.1 x10^3/uL (4.0-11.0) Red Blood Count 4.41 x10^6/uL (4.30-5.70) Hemoglobin 15.4 g/dL (13.0-17.5) Hematocrit 45.2 % (39.0-53.0) Mean Corpuscular Volume 102 fL (79-100) Mean Corpuscular Hemoglobin 35 pg (25-35) Mean Corpuscular Hemoglobin Concent 34 g/dL (31-37) Red Cell Distribution Width 14.3 % (11.5-14.5) Platelet Count 98 x10^3/uL (140-400) Prothrombin Time 15.9 SEC (11.7-14.0) Prothromb Time International Ratio 1.4 (0.8-1.1) Activated Partial Thromboplast Time 113 SEC (24-38) Heparin Anti-Xa Act, Unfractionated 0.28 IU/mL (0.30-0.70) 0.11 IU/mL (0.30-0.70) Lactic Acid Level 1.1 mmol/L (0.4-2.0) Sodium Level 142 mmol/L (136-145) 139 mmol/L (136-145) Potassium Level 4.2 mmol/L (3.5-5.1) 3.6 mmol/L (3.5-5.1) Chloride Level 112 mmol/L (98-107) 109 mmol/L (98-107) Carbon Dioxide Level 23 mmol/L (21-32) 22 mmol/L (21-32) Anion Gap 7 (6-14) 8 (6-14) Blood Urea Nitrogen 6 mg/dL (8-26) 6 mg/dL (8-26) Creatinine 0.5 mg/dL (0.7-1.3) 0.4 mg/dL (0.7-1.3) Estimated GFR (Cockcroft-Gault) 164.9 213.3 Glucose Level 105 mg/dL (70-99) 123 mg/dL (70-99) Calcium Level 6.9 mg/dL (8.5-10.1) 7.3 mg/dL (8.5-10.1) Phosphorus Level 3.4 mg/dL (2.6-4.7) 2.8 mg/dL (2.6-4.7) Magnesium Level 1.8 mg/dL (1.8-2.4) 1.8 mg/dL (1.8-2.4) Test 04/20/17 00:00 04/20/17 02:55 04/20/17 07:45 04/20/17 09:00 Sodium Level 140 mmol/L (136-145) Potassium Level 3.7 mmol/L (3.5-5.1) Chloride Level 108 mmol/L (98-107) Carbon Dioxide Level 22 mmol/L (21-32) Anion Gap 10 (6-14) Blood Urea Nitrogen 5 mg/dL (8-26) Creatinine 0.4 mg/dL (0.7-1.3) Estimated GFR (Cockcroft-Gault) 213.3 Glucose Level 119 mg/dL (70-99) Calcium Level 7.3 mg/dL (8.5-10.1) Phosphorus Level 2.6 mg/dL (2.6-4.7) Magnesium Level 1.7 mg/dL (1.8-2.4) Heparin Anti-Xa Act, Unfractionated 0.39 IU/mL (0.30-0.70) 0.40 IU/mL (0.30-0.70) O2 Saturation 99 % (92-99) Arterial Blood pH 7.44 (7.35-7.45) Arterial Blood pCO2 at Patient Temp 33 mmHg (35-46) Arterial Blood pO2 at Patient Temp 171 mmHg (65-108) Arterial Blood HCO3 22 mmol/L (21-28) Arterial Blood Base Excess -1 mmol/L (-3-3) FiO2 40 White Blood Count 13.6 x10^3/uL (4.0-11.0) Red Blood Count 3.67 x10^6/uL (4.30-5.70) Hemoglobin 12.7 g/dL (13.0-17.5) Hematocrit 38.1 % (39.0-53.0) Mean Corpuscular Volume 104 fL (79-100) Mean Corpuscular Hemoglobin 35 pg (25-35) Mean Corpuscular Hemoglobin Concent 33 g/dL (31-37) Red Cell Distribution Width 14.1 % (11.5-14.5) Platelet Count 69 x10^3/uL (140-400) Ionized Calcium 0.98 mmol/L (1.13-1.32) Total Bilirubin 0.3 mg/dL (0.2-1.0) Direct Bilirubin 0.1 mg/dL (0.0-0.2) Aspartate Amino Transf (AST/SGOT) 65 U/L (15-37) Alanine Aminotransferase (ALT/SGPT) 42 U/L (16-63) Alkaline Phosphatase 57 U/L (46-116) Total Protein 4.4 g/dL (6.4-8.2) Albumin 1.8 g/dL (3.4-5.0) Lipase 40 U/L (73-393) Test 04/20/17 09:40 O2 Saturation 99 % (92-99) Arterial Blood pH 7.42 (7.35-7.45) Arterial Blood pCO2 at Patient Temp 31 mmHg (35-46) Arterial Blood pO2 at Patient Temp 148 mmHg (65-108) Arterial Blood HCO3 20 mmol/L (21-28) Arterial Blood Base Excess -4 mmol/L (-3-3) FiO2 40 Review of Systems Review of Systems Patient does not appear to be in acute distress, no aggravation noted, no vomiting. Patient remains nonverbal. Assessment and Plan Assessmemt and Plan Assessment: 1. Post code 2. cardiac arrest, vifb, 2/2 acute [place] likely, possible STEMI 3. ACUTE resp failure with cardiac arrest 4. hypokalemia 5. shock ,cardiogenic likely 6. leukocytosis, reactive 7. AMS, from cardiac arrest 8. Multivessel disease including left main Plan: 1 Continue ICU care 2 Continue to keep MAP >65 , need pressors [address] and monitor urine output >0.5cc/kg 4 DVT and GI prophylaxis 5 Continue to monitor potassium and replace as needed 6 Appreciate subspecialty input and assistance 7 Discussed plan with nursing 8 Patient extubated. Monitor for respiratory issues. Balloon pump still in place until tomorrow. Problems: Comment Review of Relevant I have reviewed the following items erna (where applicable) has been applied. Labs Laboratory Tests Test 04/18/17 14:20 04/18/17 15:45 04/18/17 16:20 04/18/17 17:50 White Blood Count 14.0 x10^3/uL (4.0-11.0) Red Blood Count 4.60 x10^6/uL (4.30-5.70) Hemoglobin 16.1 g/dL (13.0-17.5) Hematocrit 48.0 % (39.0-53.0) Mean Corpuscular Volume 104 fL (79-100) Mean Corpuscular Hemoglobin 35 pg (25-35) Mean Corpuscular Hemoglobin Concent 34 g/dL (31-37) Red Cell Distribution Width 13.7 % (11.5-14.5) Platelet Count 132 x10^3/uL (140-400) Prothrombin Time 15.9 SEC (11.7-14.0) Prothromb Time International Ratio 1.4 (0.8-1.1) Heparin Anti-Xa Act, Unfractionated 0.64 IU/mL (0.30-0.70) 0.90 IU/mL (0.30-0.70) Lactic Acid Level 2.3 mmol/L (0.4-2.0) O2 Saturation 98 % (92-99) Arterial Blood pH 7.31 (7.35-7.45) Arterial Blood pH (Temp corrected) 7.36 Arterial Blood pCO2 at Patient Temp 42 mmHg (35-46) Arterial Blood pCO2 (Temp correct) 36 mmHg Arterial Blood pO2 at Patient Temp 127 mmHg (65-108) Arterial Blood pO2 (Temp corrected) 107 mmHg Arterial Blood HCO3 21 mmol/L (21-28) Arterial Blood Base Excess -5 mmol/L (-3-3) FiO2 40 Sodium Level 142 mmol/L (136-145) Potassium Level 2.9 mmol/L (3.5-5.1) Chloride Level 110 mmol/L (98-107) Carbon Dioxide Level 23 mmol/L (21-32) Anion Gap 9 (6-14) Blood Urea Nitrogen 8 mg/dL (8-26) Creatinine 0.6 mg/dL (0.7-1.3) Estimated GFR (Cockcroft-Gault) 133.6 Glucose Level 115 mg/dL (70-99) Calcium Level 6.5 mg/dL (8.5-10.1) Phosphorus Level 2.5 mg/dL (2.6-4.7) Magnesium Level 1.7 mg/dL (1.8-2.4) Test 04/18/17 20:51 04/18/17 22:30 04/19/17 00:05 04/19/17 01:40 Sodium Level 141 mmol/L (136-145) 141 mmol/L (136-145) Potassium Level 4.4 mmol/L (3.5-5.1) 4.2 mmol/L (3.5-5.1) Chloride Level 111 mmol/L (98-107) 110 mmol/L (98-107) Carbon Dioxide Level 23 mmol/L (21-32) 21 mmol/L (21-32) Anion Gap 7 (6-14) 10 (6-14) Blood Urea Nitrogen 8 mg/dL (8-26) 9 mg/dL (8-26) Creatinine 0.5 mg/dL (0.7-1.3) 0.5 mg/dL (0.7-1.3) Estimated GFR (Cockcroft-Gault) 164.9 164.9 Glucose Level 95 mg/dL (70-99) 110 mg/dL (70-99) Calcium Level 6.8 mg/dL (8.5-10.1) 6.9 mg/dL (8.5-10.1) Phosphorus Level 2.6 mg/dL (2.6-4.7) 3.7 mg/dL (2.6-4.7) Magnesium Level 2.1 mg/dL (1.8-2.4) 2.0 mg/dL (1.8-2.4) White Blood Count 14.4 x10^3/uL (4.0-11.0) Red Blood Count 4.74 x10^6/uL (4.30-5.70) Hemoglobin 16.6 g/dL (13.0-17.5) Hematocrit 49.9 % (39.0-53.0) Mean Corpuscular Volume 105 fL (79-100) Mean Corpuscular Hemoglobin 35 pg (25-35) Mean Corpuscular Hemoglobin Concent 33 g/dL (31-37) Red Cell Distribution Width 14.2 % (11.5-14.5) Platelet Count 135 x10^3/uL (140-400) Prothrombin Time 15.4 SEC (11.7-14.0) Prothromb Time International Ratio 1.3 (0.8-1.1) Activated Partial Thromboplast Time > 150 SEC (24-38) Lactic Acid Level 1.6 mmol/L (0.4-2.0) Heparin Anti-Xa Act, Unfractionated 0.34 IU/mL (0.30-0.70) Test 04/19/17 04:10 04/19/17 06:00 04/19/17 07:50 04/19/17 08:00 Sodium Level 140 mmol/L (136-145) 139 mmol/L (136-145) Potassium Level 4.6 mmol/L (3.5-5.1) 4.2 mmol/L (3.5-5.1) Chloride Level 111 mmol/L (98-107) 109 mmol/L (98-107) Carbon Dioxide Level 21 mmol/L (21-32) 21 mmol/L (21-32) Anion Gap 8 (6-14) 9 (6-14) Blood Urea Nitrogen 7 mg/dL (8-26) 7 mg/dL (8-26) Creatinine 0.5 mg/dL (0.7-1.3) 0.5 mg/dL (0.7-1.3) Estimated GFR (Cockcroft-Gault) 164.9 164.9 Glucose Level 112 mg/dL (70-99) 108 mg/dL (70-99) Calcium Level 6.8 mg/dL (8.5-10.1) 7.2 mg/dL (8.5-10.1) Phosphorus Level 3.4 mg/dL (2.6-4.7) 3.4 mg/dL (2.6-4.7) Magnesium Level 1.9 mg/dL (1.8-2.4) 1.9 mg/dL (1.8-2.4) White Blood Count 16.2 x10^3/uL (4.0-11.0) Red Blood Count 4.66 x10^6/uL (4.30-5.70) Hemoglobin 16.2 g/dL (13.0-17.5) Hematocrit 48.7 % (39.0-53.0) Mean Corpuscular Volume 105 fL (79-100) Mean Corpuscular Hemoglobin 35 pg (25-35) Mean Corpuscular Hemoglobin Concent 33 g/dL (31-37) Red Cell Distribution Width 14.3 % (11.5-14.5) Platelet Count 111 x10^3/uL (140-400) Neutrophils (%) (Auto) 85 % (31-73) Lymphocytes (%) (Auto) 8 % (24-48) Monocytes (%) (Auto) 6 % (0-9) Eosinophils (%) (Auto) 0 % (0-3) Basophils (%) (Auto) 0 % (0-3) Neutrophils # (Auto) 13.8 x10^3uL (1.8-7.7) Lymphocytes # (Auto) 1.3 x10^3/uL (1.0-4.8) Monocytes # (Auto) 1.0 x10^3/uL (0.0-1.1) Eosinophils # (Auto) 0.1 x10^3/uL (0.0-0.7) Basophils # (Auto) 0.0 x10^3/uL (0.0-0.2) Lactic Acid Level 1.0 mmol/L (0.4-2.0) Prothrombin Time 15.8 SEC (11.7-14.0) Prothromb Time International Ratio 1.3 (0.8-1.1) Activated Partial Thromboplast Time > 150 SEC (24-38) Heparin Anti-Xa Act, Unfractionated 0.37 IU/mL (0.30-0.70) Ionized Calcium 1.03 mmol/L (1.13-1.32) Total Bilirubin 0.3 mg/dL (0.2-1.0) Direct Bilirubin 0.1 mg/dL (0.0-0.2) Aspartate Amino Transf (AST/SGOT) 172 U/L (15-37) Alanine Aminotransferase (ALT/SGPT) 68 U/L (16-63) Alkaline Phosphatase 65 U/L (46-116) Total Protein 5.2 g/dL (6.4-8.2) Albumin 2.2 g/dL (3.4-5.0) Lipase 66 U/L (73-393) O2 Saturation 98 % (92-99) Arterial Blood pH 7.34 (7.35-7.45) Arterial Blood pH (Temp corrected) 7.37 Arterial Blood pCO2 at Patient Temp 36 mmHg (35-46) Arterial Blood pCO2 (Temp correct) 33 mmHg Arterial Blood pO2 at Patient Temp 108 mmHg (65-108) Arterial Blood pO2 (Temp corrected) 97 mmHg Arterial Blood HCO3 19 mmol/L (21-28) Arterial Blood Base Excess -6 mmol/L (-3-3) FiO2 40 Test 04/19/17 08:32 04/19/17 11:45 04/19/17 14:40 04/19/17 16:11 Nasal Screen MRSA (PCR) Negative (Negative) Sodium Level 143 mmol/L (136-145) 142 mmol/L (136-145) Potassium Level 4.3 mmol/L (3.5-5.1) 4.2 mmol/L (3.5-5.1) Chloride Level 111 mmol/L (98-107) 112 mmol/L (98-107) Carbon Dioxide Level 22 mmol/L (21-32) 23 mmol/L (21-32) Anion Gap 10 (6-14) 7 (6-14) Blood Urea Nitrogen 7 mg/dL (8-26) 6 mg/dL (8-26) Creatinine 0.5 mg/dL (0.7-1.3) 0.5 mg/dL (0.7-1.3) Estimated GFR (Cockcroft-Gault) 164.9 164.9 Glucose Level 103 mg/dL (70-99) 105 mg/dL (70-99) Calcium Level 6.6 mg/dL (8.5-10.1) 6.9 mg/dL (8.5-10.1) Phosphorus Level 3.3 mg/dL (2.6-4.7) 3.4 mg/dL (2.6-4.7) Magnesium Level 1.7 mg/dL (1.8-2.4) 1.8 mg/dL (1.8-2.4) White Blood Count 13.1 x10^3/uL (4.0-11.0) Red Blood Count 4.41 x10^6/uL (4.30-5.70) Hemoglobin 15.4 g/dL (13.0-17.5) Hematocrit 45.2 % (39.0-53.0) Mean Corpuscular Volume 102 fL (79-100) Mean Corpuscular Hemoglobin 35 pg (25-35) Mean Corpuscular Hemoglobin Concent 34 g/dL (31-37) Red Cell Distribution Width 14.3 % (11.5-14.5) Platelet Count 98 x10^3/uL (140-400) Prothrombin Time 15.9 SEC (11.7-14.0) Prothromb Time International Ratio 1.4 (0.8-1.1) Activated Partial Thromboplast Time 113 SEC (24-38) Heparin Anti-Xa Act, Unfractionated 0.28 IU/mL (0.30-0.70) Lactic Acid Level 1.1 mmol/L (0.4-2.0) Test 04/19/17 20:25 04/19/17 20:40 04/20/17 00:00 04/20/17 02:55 Heparin Anti-Xa Act, Unfractionated 0.11 IU/mL (0.30-0.70) 0.39 IU/mL (0.30-0.70) Sodium Level 139 mmol/L (136-145) 140 mmol/L (136-145) Potassium Level 3.6 mmol/L (3.5-5.1) 3.7 mmol/L (3.5-5.1) Chloride Level 109 mmol/L (98-107) 108 mmol/L (98-107) Carbon Dioxide Level 22 mmol/L (21-32) 22 mmol/L (21-32) Anion Gap 8 (6-14) 10 (6-14) Blood Urea Nitrogen 6 mg/dL (8-26) 5 mg/dL (8-26) Creatinine 0.4 mg/dL (0.7-1.3) 0.4 mg/dL (0.7-1.3) Estimated GFR (Cockcroft-Gault) 213.3 213.3 Glucose Level 123 mg/dL (70-99) 119 mg/dL (70-99) Calcium Level 7.3 mg/dL (8.5-10.1) 7.3 mg/dL (8.5-10.1) Phosphorus Level 2.8 mg/dL (2.6-4.7) 2.6 mg/dL (2.6-4.7) Magnesium Level 1.8 mg/dL (1.8-2.4) 1.7 mg/dL (1.8-2.4) Test 04/20/17 07:45 04/20/17 09:00 04/20/17 09:40 O2 Saturation 99 % (92-99) 99 % (92-99) Arterial Blood pH 7.44 (7.35-7.45) 7.42 (7.35-7.45) Arterial Blood pCO2 at Patient Temp 33 mmHg (35-46) 31 mmHg (35-46) Arterial Blood pO2 at Patient Temp 171 mmHg (65-108) 148 mmHg (65-108) Arterial Blood HCO3 22 mmol/L (21-28) 20 mmol/L (21-28) Arterial Blood Base Excess -1 mmol/L (-3-3) -4 mmol/L (-3-3) FiO2 40 40 White Blood Count 13.6 x10^3/uL (4.0-11.0) Red Blood Count 3.67 x10^6/uL (4.30-5.70) Hemoglobin 12.7 g/dL (13.0-17.5) Hematocrit 38.1 % (39.0-53.0) Mean Corpuscular Volume 104 fL (79-100) Mean Corpuscular Hemoglobin 35 pg (25-35) Mean Corpuscular Hemoglobin Concent 33 g/dL (31-37) Red Cell Distribution Width 14.1 % (11.5-14.5) Platelet Count 69 x10^3/uL (140-400) Heparin Anti-Xa Act, Unfractionated 0.40 IU/mL (0.30-0.70) Ionized Calcium 0.98 mmol/L (1.13-1.32) Total Bilirubin 0.3 mg/dL (0.2-1.0) Direct Bilirubin 0.1 mg/dL (0.0-0.2) Aspartate Amino Transf (AST/SGOT) 65 U/L (15-37) Alanine Aminotransferase (ALT/SGPT) 42 U/L (16-63) Alkaline Phosphatase 57 U/L (46-116) Total Protein 4.4 g/dL (6.4-8.2) Albumin 1.8 g/dL (3.4-5.0) Lipase 40 U/L (73-393) Laboratory Tests Test 04/19/17 14:40 04/19/17 16:11 04/19/17 20:25 04/19/17 20:40 White Blood Count 13.1 x10^3/uL (4.0-11.0) Red Blood Count 4.41 x10^6/uL (4.30-5.70) Hemoglobin 15.4 g/dL (13.0-17.5) Hematocrit 45.2 % (39.0-53.0) Mean Corpuscular Volume 102 fL (79-100) Mean Corpuscular Hemoglobin 35 pg (25-35) Mean Corpuscular Hemoglobin Concent 34 g/dL (31-37) Red Cell Distribution Width 14.3 % (11.5-14.5) Platelet Count 98 x10^3/uL (140-400) Prothrombin Time 15.9 SEC (11.7-14.0) Prothromb Time International Ratio 1.4 (0.8-1.1) Activated Partial Thromboplast Time 113 SEC (24-38) Heparin Anti-Xa Act, Unfractionated 0.28 IU/mL (0.30-0.70) 0.11 IU/mL (0.30-0.70) Lactic Acid Level 1.1 mmol/L (0.4-2.0) Sodium Level 142 mmol/L (136-145) 139 mmol/L (136-145) Potassium Level 4.2 mmol/L (3.5-5.1) 3.6 mmol/L (3.5-5.1) Chloride Level 112 mmol/L (98-107) 109 mmol/L (98-107) Carbon Dioxide Level 23 mmol/L (21-32) 22 mmol/L (21-32) Anion Gap 7 (6-14) 8 (6-14) Blood Urea Nitrogen 6 mg/dL (8-26) 6 mg/dL (8-26) Creatinine 0.5 mg/dL (0.7-1.3) 0.4 mg/dL (0.7-1.3) Estimated GFR (Cockcroft-Gault) 164.9 213.3 Glucose Level 105 mg/dL (70-99) 123 mg/dL (70-99) Calcium Level 6.9 mg/dL (8.5-10.1) 7.3 mg/dL (8.5-10.1) Phosphorus Level 3.4 mg/dL (2.6-4.7) 2.8 mg/dL (2.6-4.7) Magnesium Level 1.8 mg/dL (1.8-2.4) 1.8 mg/dL (1.8-2.4) Test 04/20/17 00:00 04/20/17 02:55 04/20/17 07:45 04/20/17 09:00 Sodium Level 140 mmol/L (136-145) Potassium Level 3.7 mmol/L (3.5-5.1) Chloride Level 108 mmol/L (98-107) Carbon Dioxide Level 22 mmol/L (21-32) Anion Gap 10 (6-14) Blood Urea Nitrogen 5 mg/dL (8-26) Creatinine 0.4 mg/dL (0.7-1.3) Estimated GFR (Cockcroft-Gault) 213.3 Glucose Level 119 mg/dL (70-99) Calcium Level 7.3 mg/dL (8.5-10.1) Phosphorus Level 2.6 mg/dL (2.6-4.7) Magnesium Level 1.7 mg/dL (1.8-2.4) Heparin Anti-Xa Act, Unfractionated 0.39 IU/mL (0.30-0.70) 0.40 IU/mL (0.30-0.70) O2 Saturation 99 % (92-99) Arterial Blood pH 7.44 (7.35-7.45) Arterial Blood pCO2 at Patient Temp 33 mmHg (35-46) Arterial Blood pO2 at Patient Temp 171 mmHg (65-108) Arterial Blood HCO3 22 mmol/L (21-28) Arterial Blood Base Excess -1 mmol/L (-3-3) FiO2 40 White Blood Count 13.6 x10^3/uL (4.0-11.0) Red Blood Count 3.67 x10^6/uL (4.30-5.70) Hemoglobin 12.7 g/dL (13.0-17.5) Hematocrit 38.1 % (39.0-53.0) Mean Corpuscular Volume 104 fL (79-100) Mean Corpuscular Hemoglobin 35 pg (25-35) Mean Corpuscular Hemoglobin Concent 33 g/dL (31-37) Red Cell Distribution Width 14.1 % (11.5-14.5) Platelet Count 69 x10^3/uL (140-400) Ionized Calcium 0.98 mmol/L (1.13-1.32) Total Bilirubin 0.3 mg/dL (0.2-1.0) Direct Bilirubin 0.1 mg/dL (0.0-0.2) Aspartate Amino Transf (AST/SGOT) 65 U/L (15-37) Alanine Aminotransferase (ALT/SGPT) 42 U/L (16-63) Alkaline Phosphatase 57 U/L (46-116) Total Protein 4.4 g/dL (6.4-8.2) Albumin 1.8 g/dL (3.4-5.0) Lipase 40 U/L (73-393) Test 04/20/17 09:40 O2 Saturation 99 % (92-99) Arterial Blood pH 7.42 (7.35-7.45) Arterial Blood pCO2 at Patient Temp 31 mmHg (35-46) Arterial Blood pO2 at Patient Temp 148 mmHg (65-108) Arterial Blood HCO3 20 mmol/L (21-28) Arterial Blood Base Excess -4 mmol/L (-3-3) FiO2 40 Microbiology 04/17/17 Blood Culture - Preliminary, Resulted NO GROWTH AFTER 2 DAYS Medications Current Medications Heparin Sodium (Porcine) (Heparin Sodium) 10,000 unit [employer] ONCE .ROUTE ; Start 04/17/17 at 19:03; Stop 04/17/17 at 19:04; Status DC Heparin Sodium (Porcine) (Heparin Sodium) 4,000 unit 1X ONCE IV Last administered on 04/17/17 19:05; Start 04/17/17 at 19:15; Stop 04/17/17 at 19:49; Status DC Sodium Chloride 1,000 ml @ 1,000 mls/hr Q1H IV Last administered on 04/17/17 19:07; Start 04/17/17 at 19:07; Stop 04/17/17 at 20:06; Status DC Midazolam HCl 100 ml @ As Directed STK-MED ONCE IV ; Start 04/17/17 at 19:15; Stop 04/17/17 at 19:16; Status DC Etomidate (Amidate) 20 mg STK-MED ONCE IV ; Start 04/17/17 at 19:15; Stop at 19:16; Status DC Succinylcholine Chloride (Anectine) 200 mg STK-MED ONCE .ROUTE ; Start 04/17/17 at 19:16; Stop 04/17/17 at 19:17; Status DC Heparin Sodium/ Sodium Chloride 1,500 ml @ As Directed STK-MED ONCE .ROUTE ; Start 04/17/17 at 19:24; Stop 04/17/17 at 19:25; Status DC Lidocaine HCl 20 ml STK-MED ONCE .ROUTE ; Start 04/17/17 at 19:24; Stop 04/17/17 at 19:25; Status DC Iodixanol (Visipaque 320) 100 ml STK-MED ONCE .ROUTE ; Start 04/17/17 at 19:24; Stop 04/17/17 at 19:25; Status DC Dopamine HCl/ Dextrose 250 ml @ 0 mls/hr CONT PRN IV SEE I/O RECORD Last administered on 04/17/17 19:32; Start 04/17/17 at 19:30; Stop 04/17/17 at 20:54; Status DC Dopamine HCl/ Dextrose 250 ml @ As Directed STK-MED ONCE IV ; Start 04/17/17 at 19:30; Stop 04/17/17 at 19:31; Status DC Ondansetron HCl (Zofran) 4 mg PRN Q8HRS PRN IV NAUSEA/VOMITING; Start 04/17/17 at 19:30; Stop 04/18/17 at 19:29; Status DC Sodium Chloride 1,000 ml @ 100 mls/hr Q10H IV Last administered on 04/18/17 12 :35; Start 04/17/17 at 19:30; Stop 04/18/17 at 19:29; Status DC Acetaminophen (Tylenol) 650 mg PRN Q4HRS PRN PO FEVER; Start 04/17/17 at 19:30; Stop 04/18/17 at 19:29; Status DC Heparin Sodium (Porcine) (Heparin Sodium) 10,000 unit STK-MED ONCE .ROUTE ; Start 04/17/17 at 20:16; Stop 04/17/17 at 20:17; Status DC Tirofiban/Sodium Chloride 0 ml @ As Directed STK-MED ONCE IV ; Start 04/17/17 at 20:16; Stop 04/17/17 at 20:17; Status DC Famotidine (Pepcid) 20 mg QHS IVP Last administered on 04/17/17 22:30; Start at 21:00; Stop 04/19/17 at 08:05; Status DC Etomidate (Amidate) 20 mg 1X ONCE IV Last administered on 04/17/17 19:00; Start 04/17/17 at 20:30; Stop 04/17/17 at 21:05; Status DC Succinylcholine Chloride (Anectine) 100 mg 1X ONCE IV Last administered on 04/17 19:00; Start 04/17/17 at 20:30; Stop 04/17/17 at 21:07; Status DC Lidocaine HCl/ Dextrose 500 ml @ 0 mls/hr 1X ONCE IV Last administered on 18:55; Start 04/17/17 at 20:30; Stop 04/17/17 at 21:08; Status DC Dopamine HCl/ Dextrose 250 ml @ 0 mls/hr CONT PRN IV SEE I/O RECORD Last administered on 04/20/17 09:36; Start 04/17/17 at 20:30 Heparin Sodium/ Dextrose 500 ml @ As Directed STK-MED ONCE IV ; Start 04/17/17 at 20:43; Stop 04/17/17 at 20:44; Status DC Heparin Sodium/ Dextrose 500 ml @ 0 mls/hr CONT PRN IV SEE I/O RECORD Last administered on 04/19/17 01:48; Start 04/17/17 at 20:45; Stop 04/19/17 at 16:41; Status DC Midazolam HCl (Versed) 5 mg 1X ONCE IV Last administered on 04/17/17 19:17; Start 04/17/17 at 21:00; Stop 04/17/17 at 21:07; Status DC Heparin Sodium (Porcine) (Heparin Sodium) 2,000 unit 1X ONCE IV Last administered on 04/17/17 20:59; Start 04/17/17 at 21:00; Stop 04/17/17 at 21:06; Status DC Iodixanol (Visipaque 320) 134 ml 1X ONCE IART Last administered on 04/17/17 20 :58; Start 04/17/17 at 21:00; Stop 04/17/17 at 21:04; Status DC Lidocaine HCl 20 ml 1X ONCE IJ Last administered on 04/17/17 20:58; Start 04/17 at 21:00; Stop 04/17/17 at 21:08; Status DC Fentanyl Citrate 30 ml @ As Directed STK-MED ONCE IV ; Start 04/17/17 at 21:09; Stop 04/17/17 at 21:10; Status DC Sodium Chloride 1,000 ml @ 1,000 mls/hr Q1H IV Last administered on 04/17/17 23:30; Start 04/17/17 at 21:30; Stop 04/18/17 at 03:42; Status DC Fentanyl Citrate (Fentanyl 2ml Vial) 25 mcg PRN Q30MIN PRN IV SED; Start at 21:30 Lorazepam (Ativan) 1 mg PRN Q30MIN PRN IV SEDATION Last administered on 10:39; Start 04/17/17 at 21:30 Fentanyl Citrate 30 ml @ 2.5 mls/hr CONT PRN PRN IV IVF Last administered on 13:30; Start 04/17/17 at 21:30 Propofol 100 ml @ 0 mls/hr CONT PRN IV SEE I/O RECORD Last administered on 09:26; Start 04/17/17 at 21:30 Vecuronium [place] (Norcuron Bolus) DOSE AT 0.1 mg/kg PRN Q30MIN PRN IV SHIVERING Last administered on 04/18/17 16:00; Start 04/17/17 at 21:30 Meperidine HCl (Demerol) 12.5 mg PRN Q30MIN PRN IV SHIVERING Last administered on 04/18/17 04:17; Start 04/17/17 at 21:30; Stop 04/18/17 at 04:18; Status DC Multi-Ingred Cream/Lotion/Oil/ Oint (Artificial Tears Eye Oint) 1 balaji PRN Q6HRS PRN OU 0.5 INCH FOR DRY EYE Last administered on 04/18/17 23:57; Start at 21:30 Famotidine (Pepcid) 20 mg BID IVP Last administered on 04/20/17 09:29; Start at 09:00 Aspirin (Aspirin) 300 mg DAILY MT Last administered on 04/20/17 09:29; Start at 09:00 Sodium Chloride (Normal Saline Flush) 3 ml QSHIFT PRN IV AFTER MEDS AND BLOOD DRAWS; Start 04/17/17 at 21:30 Acetaminophen (Tylenol) 650 mg Q6HRS NG ; Start 04/18/17 at 00:00; Stop 04/18/17 at 23:59; Status DC Acetaminophen (Acetaminophen Supp) 650 mg PRN Q6HRS PRN MT MILD PAIN / TEMP Last administered on 04/19/17 12:20; Start 04/18/17 at 21:30 Acetaminophen (Tylenol) 650 mg PRN Q6HRS PRN NG MILD PAIN / TEMP; Start at 21:30 Info 1 ea DAILY PRN MC PER PROTOCOL; Start 04/19/17 at 21:30 Heparin Sodium/ Dextrose 500 ml @ 0 mls/hr CONT PRN IV SEE I/O RECORD; Start at 21:30; Stop 04/19/17 at 07:26; Status DC Heparin Sodium (Porcine) (Heparin Sodium) 1,450 unit PRN Q6HRS PRN IV FOR UFH LEVEL LESS THAN 0.2; Start 04/17/17 at 21:30; Stop 04/19/17 at 16:41; Status DC Sodium Chloride 1,000 ml @ 60 mls/hr [id number] IV Last administered on 04/19/17 10:21; Start 04/17/17 at 21:45; Stop 04/19/17 at 18:15; Status DC Midazolam HCl 100 ml @ 0 mls/hr CONT PRN IV SEE I/O RECORD; Start 04/17/17 at 22 :00 Sodium Bicarbonate 100 meq 1X ONCE IV Last administered on 04/18/17 02:02; Start 04/18/17 at 00:00; Stop 04/18/17 at 00:01; Status DC Amiodarone HCl 900 mg/Dextrose 518 ml @ 0 mls/hr 1X ONCE IV Last administered on 04/18/17 08:00; Start 04/18/17 at 08:00; Stop 04/18/17 at 08:01; Status DC Pneumococcal Polyvalent Vaccine (Do NOT chart on this placeholder) 1 each PRN DAILY PRN MC UNABLE TO RESPOND; Start 04/18/17 at 08:45 Amiodarone HCl 900 mg/Dextrose 518 ml @ 34.53 mls/ hr CONT PRN IV SEE I/O RECORD; Start 04/18/17 at 09:45; Stop 04/20/17 at 02:29; Status DC Potassium Chloride 50 ml @ 50 mls/hr 1X ONCE IV ; Start 04/18/17 at 10:30; Stop 04/18/17 at 10:30; Status DC Potassium Chloride 100 ml @ 100 mls/hr Q1H IV Last administered on 04/18/17 11 :39; Start 04/18/17 at 10:30; Stop 04/18/17 at 12:29; Status DC Ephedrine Sulfate 50 mg STK-MED ONCE IV ; Start 04/18/17 at 14:56; Stop 04/18/17 at 14:57; Status DC Potassium Chloride 50 ml @ 50 mls/hr Q1H IV Last administered on 04/18/17 19:23 ; Start 04/18/17 at 17:30; Stop 04/18/17 at 20:29; Status DC Magnesium Sulfate/ Dextrose 100 ml @ 100 mls/hr 1X ONCE IV Last administered on 04/18/17 17:10; Start 04/18/17 at 17:30; Stop 04/18/17 at 18:29; Status DC Calcium Gluconate (Calcium Gluconate) 1,000 mg 1X ONCE IV Last administered on 04/18/17 17:08; Start 04/18/17 at 17:15; Stop 04/18/17 at 17:16; Status DC Epinephrine HCl (EPINEPHrine SYRINGE) 1 mg STK-MED ONCE .ROUTE ; Start 04/17/17 at 17:03; Stop 04/18/17 at 17:03; Status DC Info (Anti-Coagulation Monitoring By Pharmacy) 1 each PRN DAILY PRN MC SEE COMMENTS Last administered on 04/20/17 08:40; Start 04/19/17 at 08:15 Chlorhexidine Gluconate (Peridex) 15 ml BID MM Last administered on 04/20/17 09 :29; Start 04/19/17 at 09:00 Amiodarone HCl 450 mg/Dextrose 259 ml @ 17.26 mls/ hr CONT PRN IV SEE I/O RECORD Last administered on 04/20/17 03:37; Start 04/19/17 at 13:00 Midazolam HCl (Versed) 5 mg STK-MED ONCE .ROUTE ; Start 04/19/17 at 16:21; Stop 04/19/17 at 16:22; Status DC Midazolam HCl (Versed) 1 mg PRN Q2HR PRN IV SEDATION FOR VENT; Start 04/19/17 at 16:30 Fentanyl Citrate (Fentanyl 2ml Vial) 25 mcg PRN Q2HR PRN IV PAIN; Start at 16:30 Fentanyl Citrate (Fentanyl 2ml Vial) 50 mcg PRN Q2HR PRN IV PAIN Last administered on 04/20/17 04:34; Start 04/19/17 at 16:30 Midazolam HCl (Versed) 2 mg PRN Q2HR PRN IV SEDATION FOR VENT Last administered on 04/20/17 07:24; Start 04/19/17 at 16:30 Heparin Sodium/ Dextrose 500 ml @ 0 mls/hr CONT PRN IV SEE I/O RECORD Last administered on 04/20/17 07:26; Start 04/19/17 at 16:45 Heparin Sodium (Porcine) (Heparin Sodium) 1,450 unit PRN Q6HRS PRN IV FOR UFH LEVEL LESS THAN 0.2 Last administered on 04/19/17 20:56; Start 04/19/17 at 16:45 Midazolam HCl (Versed) 2 mg 1X ONCE IV Last administered on 04/19/17 16:45; Start 04/19/17 at 16:45; Stop 04/19/17 at 16:46; Status DC Sodium Chloride 1,000 ml @ 100 mls/hr Q10H IV Last administered on 04/19/17 23 :42; Start 04/19/17 at 18:15 Magnesium Sulfate/ Dextrose 50 ml @ 25 mls/hr 1X ONCE IV Last administered on 04/20/17 12:22; Start 04/20/17 at 11:45; Stop 04/20/17 at 13:44; Status DC Active Scripts Active Reported [No home meds] Vitals/I & O Vital Sign - Last 24 Hours 04/19/17 04/19/17 04/19/17 04/19/17 14:00 14:00 14:54 15:00 Pulse 74 79 Resp 16 16 B/P (MAP) 98/59 (72) 93/51 (65) Pulse Ox 100 100 98 100 O2 Delivery Ventilator Ventilator Ventilator Ventilator 04/19/17 04/19/17 04/19/17 04/19/17 16:00 16:00 16:00 16:53 Temp 99.4 99.4 Pulse 71 76 Resp 16 B/P (MAP) 99/60 (73) 105/59 (74) Pulse Ox 100 100 O2 Delivery Mechanical Ventilator Ventilator Ventilator 04/19/17 04/19/17 04/19/17 04/19/17 17:00 18:00 19:00 19:03 Pulse 71 74 63 Resp 18 18 14 B/P (MAP) 107/55 (72) 123/70 (87) 105/76 (86) Pulse Ox 100 100 99 100 O2 Delivery Ventilator Ventilator Ventilator Ventilator 04/19/17 04/19/17 04/19/17 04/19/17 19:20 19:51 20:00 20:06 Temp 97.8 97.8 Pulse 71 63 Resp 14 13 B/P (MAP) 121/72 (88) 115/67 (83) Pulse Ox 99 100 O2 Delivery Ventilator Mechanical Ventilator Ventilator 04/19/17 04/19/17 04/19/17 04/19/17 20:57 21:00 22:00 23:00 Pulse 71 65 67 Resp 13 9 16 B/P (MAP) 137/81 (99) 114/54 (74) 110/65 (80) Pulse Ox 100 100 100 100 O2 Delivery Ventilator Ventilator Ventilator Ventilator 04/19/17 04/19/17 04/20/17 04/20/17 23:03 23:13 00:00 00:00 Temp 97.9 97.9 Pulse 60 61 Resp 16 16 B/P (MAP) 124/69 (87) 124/65 (84) Pulse Ox 100 100 100 O2 Delivery Ventilator Ventilator Ventilator 04/20/17 04/20/17 04/20/17 04/20/17 00:00 01:00 01:05 01:57 Pulse 58 58 Resp 16 16 B/P (MAP) 127/72 (90) 137/60 (85) Pulse Ox 100 100 100 O2 Delivery Mechanical Ventilator Ventilator Ventilator Ventilator 04/20/17 04/20/17 04/20/17 04/20/17 03:00 03:15 03:54 03:57 Pulse 76 71 Resp 16 B/P (MAP) 118/64 (82) 133/84 (100) Pulse Ox 100 100 O2 Delivery Ventilator Ventilator Mechanical Ventilator 04/20/17 04/20/17 04/20/17 04/20/17 03:58 04:34 05:00 05:05 Temp 97.9 97.9 Pulse 66 69 Resp 16 16 16 16 B/P (MAP) 134/76 (95) 120/67 (84) Pulse Ox 100 100 100 100 O2 Delivery Ventilator Ventilator Ventilator Ventilator 04/20/17 04/20/17 04/20/17 04/20/17 05:12 06:00 07:00 07:38 Pulse 58 65 Resp 16 25 B/P (MAP) 131/58 (82) 135/52 (79) Pulse Ox 100 100 99 100 O2 Delivery Ventilator Ventilator Ventilator Ventilator 04/20/17 04/20/17 04/20/17 04/20/17 08:00 08:00 08:00 09:00 Temp 98.1 98.1 Pulse 66 65 62 Resp 18 14 B/P (MAP) 120/63 (82) 120/63 (82) 118/59 (78) Pulse Ox 99 99 O2 Delivery Ventilator Mechanical Ventilator Ventilator 04/20/17 04/20/17 04/20/17 04/20/17 09:11 10:00 11:00 11:42 Pulse 75 66 Resp 15 14 B/P (MAP) 114/65 (81) 120/60 (80) Pulse Ox 99 99 99 99 O2 Delivery Ventilator Ventilator Ventilator Ventilator 04/20/17 04/20/17 04/20/17 04/20/17 12:00 12:00 12:00 13:00 Pulse 70 66 75 Resp 15 24 B/P (MAP) 117/67 (84) 120/63 (82) 114/60 (78) Pulse Ox 98 95 O2 Delivery BiPAP/CPAP Nasal Cannula Nasal Cannula O2 Flow Rate 2.0 2.0 04/20/17 13:38 Temp 98.4 98.4 Pulse 67 Resp 21 B/P (MAP) 98/40 (59) Pulse Ox 98 O2 Delivery Nasal Cannula O2 Flow Rate 2.0 Intake and Output 04/19/17 04/19/17 04/20/17 15:00 23:00 07:00 Intake Total 2589 ml 1813 ml Output Total 835 ml 1280 ml 1975 ml Balance -835 ml 1309 ml -162 ml Nutrition Consultation Dietary Evaluation: Comments: REC tube feedings when medically stable Expected Outcomes/Goals: to meet > 50% est nutr needs Interpretation of weight loss: >20% in 1 year Malnutrition Findings: Body Fat Depletion (Non Severe: Mild Depletion Weight Status: Underweight ANTHONY MARTI III DO Apr 20, 2017 13:53
--- NOTE | 2017-04-20 14:30 | PDOC2 ---
PALLIATIVE CARE Palliative Care Note Palliative Care Consult requested by Dr. Pittman to address goals of care. Diagnosis; S/P cardiac arrest at home; AK; respiratory failure--now extubated; hypokalemia, cardiogenic shock; leukocytosis; AMS changes --likely form arrest; Multi-vessel disease Patient agitated with stimulation. Off sedation. Per nursing staff and family. Responding appropriately to verbal stimuli. Spoke with Claudine, daughter Yady and Noreen and sister--Aranza. Per family patient showing improvement. Discussed goals of care. Family wants to continue full aggressive cafe. Will follow for any changes. ALICIA JENNINGS Apr 20, 2017 14:30
[2017-04-20 14:37] LABS: POTASSIUM ISTAT 3.2 mmol/L (3.5-5.0)
[2017-04-20] MEDS: IV NORMAL SALINE 1000ML BAG 1,000 ML IV SCH ×2 (15:04→21:14)
--- NOTE | 2017-04-20 15:13 | PDOC ---
PULMONARY PROGRESS NOTES Subjective PT DID WELL ON TRIAL NOW EXTUBATED FOLLOW SOME COMMANDS Vitals Vital Signs Date Time Temp Pulse Resp B/P (MAP) Pulse Ox O2 Delivery O2 Flow Rate FiO2 04/20/17 15:00 63 21 92/52 (65) 98 Nasal Cannula 2.0 04/20/17 13:38 98.4 98.4 General: Alert Lungs: Crackles Cardiovascular: S1, S2 Abdomen: Soft, Non-tender Neuro Exam: Alert Extremities: Other (EDEMA) Skin: Warm Labs Laboratory Tests Test 04/18/17 15:45 04/18/17 16:20 04/18/17 17:50 04/18/17 20:51 O2 Saturation 98 % (92-99) Arterial Blood pH 7.31 (7.35-7.45) Arterial Blood pH (Temp corrected) 7.36 Arterial Blood pCO2 at Patient Temp 42 mmHg (35-46) Arterial Blood pCO2 (Temp correct) 36 mmHg Arterial Blood pO2 at Patient Temp 127 mmHg (65-108) Arterial Blood pO2 (Temp corrected) 107 mmHg Arterial Blood HCO3 21 mmol/L (21-28) Arterial Blood Base Excess -5 mmol/L (-3-3) FiO2 40 Sodium Level 142 mmol/L (136-145) 141 mmol/L (136-145) Potassium Level 2.9 mmol/L (3.5-5.1) 4.4 mmol/L (3.5-5.1) Chloride Level 110 mmol/L (98-107) 111 mmol/L (98-107) Carbon Dioxide Level 23 mmol/L (21-32) 23 mmol/L (21-32) Anion Gap 9 (6-14) 7 (6-14) Blood Urea Nitrogen 8 mg/dL (8-26) 8 mg/dL (8-26) Creatinine 0.6 mg/dL (0.7-1.3) 0.5 mg/dL (0.7-1.3) Estimated GFR (Cockcroft-Gault) 133.6 164.9 Glucose Level 115 mg/dL (70-99) 95 mg/dL (70-99) Calcium Level 6.5 mg/dL (8.5-10.1) 6.8 mg/dL (8.5-10.1) Phosphorus Level 2.5 mg/dL (2.6-4.7) 2.6 mg/dL (2.6-4.7) Magnesium Level 1.7 mg/dL (1.8-2.4) 2.1 mg/dL (1.8-2.4) Heparin Anti-Xa Act, Unfractionated 0.90 IU/mL (0.30-0.70) Test 04/18/17 22:30 04/19/17 00:05 04/19/17 01:40 04/19/17 04:10 White Blood Count 14.4 x10^3/uL (4.0-11.0) Red Blood Count 4.74 x10^6/uL (4.30-5.70) Hemoglobin 16.6 g/dL (13.0-17.5) Hematocrit 49.9 % (39.0-53.0) Mean Corpuscular Volume 105 fL (79-100) Mean Corpuscular Hemoglobin 35 pg (25-35) Mean Corpuscular Hemoglobin Concent 33 g/dL (31-37) Red Cell Distribution Width 14.2 % (11.5-14.5) Platelet Count 135 x10^3/uL (140-400) Prothrombin Time 15.4 SEC (11.7-14.0) Prothromb Time International Ratio 1.3 (0.8-1.1) Activated Partial Thromboplast Time > 150 SEC (24-38) Lactic Acid Level 1.6 mmol/L (0.4-2.0) Sodium Level 141 mmol/L (136-145) 140 mmol/L (136-145) Potassium Level 4.2 mmol/L (3.5-5.1) 4.6 mmol/L (3.5-5.1) Chloride Level 110 mmol/L (98-107) 111 mmol/L (98-107) Carbon Dioxide Level 21 mmol/L (21-32) 21 mmol/L (21-32) Anion Gap 10 (6-14) 8 (6-14) Blood Urea Nitrogen 9 mg/dL (8-26) 7 mg/dL (8-26) Creatinine 0.5 mg/dL (0.7-1.3) 0.5 mg/dL (0.7-1.3) Estimated GFR (Cockcroft-Gault) 164.9 164.9 Glucose Level 110 mg/dL (70-99) 112 mg/dL (70-99) Calcium Level 6.9 mg/dL (8.5-10.1) 6.8 mg/dL (8.5-10.1) Phosphorus Level 3.7 mg/dL (2.6-4.7) 3.4 mg/dL (2.6-4.7) Magnesium Level 2.0 mg/dL (1.8-2.4) 1.9 mg/dL (1.8-2.4) Heparin Anti-Xa Act, Unfractionated 0.34 IU/mL (0.30-0.70) Test 04/19/17 06:00 04/19/17 07:50 04/19/17 08:00 04/19/17 08:32 White Blood Count 16.2 x10^3/uL (4.0-11.0) Red Blood Count 4.66 x10^6/uL (4.30-5.70) Hemoglobin 16.2 g/dL (13.0-17.5) Hematocrit 48.7 % (39.0-53.0) Mean Corpuscular Volume 105 fL (79-100) Mean Corpuscular Hemoglobin 35 pg (25-35) Mean Corpuscular Hemoglobin Concent 33 g/dL (31-37) Red Cell Distribution Width 14.3 % (11.5-14.5) Platelet Count 111 x10^3/uL (140-400) Neutrophils (%) (Auto) 85 % (31-73) Lymphocytes (%) (Auto) 8 % (24-48) Monocytes (%) (Auto) 6 % (0-9) Eosinophils (%) (Auto) 0 % (0-3) Basophils (%) (Auto) 0 % (0-3) Neutrophils # (Auto) 13.8 x10^3uL (1.8-7.7) Lymphocytes # (Auto) 1.3 x10^3/uL (1.0-4.8) Monocytes # (Auto) 1.0 x10^3/uL (0.0-1.1) Eosinophils # (Auto) 0.1 x10^3/uL (0.0-0.7) Basophils # (Auto) 0.0 x10^3/uL (0.0-0.2) Lactic Acid Level 1.0 mmol/L (0.4-2.0) Prothrombin Time 15.8 SEC (11.7-14.0) Prothromb Time International Ratio 1.3 (0.8-1.1) Activated Partial Thromboplast Time > 150 SEC (24-38) Heparin Anti-Xa Act, Unfractionated 0.37 IU/mL (0.30-0.70) Sodium Level 139 mmol/L (136-145) Potassium Level 4.2 mmol/L (3.5-5.1) Chloride Level 109 mmol/L (98-107) Carbon Dioxide Level 21 mmol/L (21-32) Anion Gap 9 (6-14) Blood Urea Nitrogen 7 mg/dL (8-26) Creatinine 0.5 mg/dL (0.7-1.3) Estimated GFR (Cockcroft-Gault) 164.9 Glucose Level 108 mg/dL (70-99) Calcium Level 7.2 mg/dL (8.5-10.1) Ionized Calcium 1.03 mmol/L (1.13-1.32) Phosphorus Level 3.4 mg/dL (2.6-4.7) Magnesium Level 1.9 mg/dL (1.8-2.4) Total Bilirubin 0.3 mg/dL (0.2-1.0) Direct Bilirubin 0.1 mg/dL (0.0-0.2) Aspartate Amino Transf (AST/SGOT) 172 U/L (15-37) Alanine Aminotransferase (ALT/SGPT) 68 U/L (16-63) Alkaline Phosphatase 65 U/L (46-116) Total Protein 5.2 g/dL (6.4-8.2) Albumin 2.2 g/dL (3.4-5.0) Lipase 66 U/L (73-393) O2 Saturation 98 % (92-99) Arterial Blood pH 7.34 (7.35-7.45) Arterial Blood pH (Temp corrected) 7.37 Arterial Blood pCO2 at Patient Temp 36 mmHg (35-46) Arterial Blood pCO2 (Temp correct) 33 mmHg Arterial Blood pO2 at Patient Temp 108 mmHg (65-108) Arterial Blood pO2 (Temp corrected) 97 mmHg Arterial Blood HCO3 19 mmol/L (21-28) Arterial Blood Base Excess -6 mmol/L (-3-3) FiO2 40 Nasal Screen MRSA (PCR) Negative (Negative) Test 7/4/17 11:45 04/19/17 14:40 04/19/17 16:11 04/19/17 20:25 Sodium Level 143 mmol/L (136-145) 142 mmol/L (136-145) Potassium Level 4.3 mmol/L (3.5-5.1) 4.2 mmol/L (3.5-5.1) Chloride Level 111 mmol/L (98-107) 112 mmol/L (98-107) Carbon Dioxide Level 22 mmol/L (21-32) 23 mmol/L (21-32) Anion Gap 10 (6-14) 7 (6-14) Blood Urea Nitrogen 7 mg/dL (8-26) 6 mg/dL (8-26) Creatinine 0.5 mg/dL (0.7-1.3) 0.5 mg/dL (0.7-1.3) Estimated GFR (Cockcroft-Gault) 164.9 164.9 Glucose Level 103 mg/dL (70-99) 105 mg/dL (70-99) Calcium Level 6.6 mg/dL (8.5-10.1) 6.9 mg/dL (8.5-10.1) Phosphorus Level 3.3 mg/dL (2.6-4.7) 3.4 mg/dL (2.6-4.7) Magnesium Level 1.7 mg/dL (1.8-2.4) 1.8 mg/dL (1.8-2.4) White Blood Count 13.1 x10^3/uL (4.0-11.0) Red Blood Count 4.41 x10^6/uL (4.30-5.70) Hemoglobin 15.4 g/dL (13.0-17.5) Hematocrit 45.2 % (39.0-53.0) Mean Corpuscular Volume 102 fL (79-100) Mean Corpuscular Hemoglobin 35 pg (25-35) Mean Corpuscular Hemoglobin Concent 34 g/dL (31-37) Red Cell Distribution Width 14.3 % (11.5-14.5) Platelet Count 98 x10^3/uL (140-400) Prothrombin Time 15.9 SEC (11.7-14.0) Prothromb Time International Ratio 1.4 (0.8-1.1) Activated Partial Thromboplast Time 113 SEC (24-38) Heparin Anti-Xa Act, Unfractionated 0.28 IU/mL (0.30-0.70) 0.11 IU/mL (0.30-0.70) Lactic Acid Level 1.1 mmol/L (0.4-2.0) Test 04/19/17 20:40 04/20/17 00:00 04/20/17 02:55 04/20/17 07:45 Sodium Level 139 mmol/L (136-145) 140 mmol/L (136-145) Potassium Level 3.6 mmol/L (3.5-5.1) 3.7 mmol/L (3.5-5.1) Chloride Level 109 mmol/L (98-107) 108 mmol/L (98-107) Carbon Dioxide Level 22 mmol/L (21-32) 22 mmol/L (21-32) Anion Gap 8 (6-14) 10 (6-14) Blood Urea Nitrogen 6 mg/dL (8-26) 5 mg/dL (8-26) Creatinine 0.4 mg/dL (0.7-1.3) 0.4 mg/dL (0.7-1.3) Estimated GFR (Cockcroft-Gault) 213.3 213.3 Glucose Level 123 mg/dL (70-99) 119 mg/dL (70-99) Calcium Level 7.3 mg/dL (8.5-10.1) 7.3 mg/dL (8.5-10.1) Phosphorus Level 2.8 mg/dL (2.6-4.7) 2.6 mg/dL (2.6-4.7) Magnesium Level 1.8 mg/dL (1.8-2.4) 1.7 mg/dL (1.8-2.4) Heparin Anti-Xa Act, Unfractionated 0.39 IU/mL (0.30-0.70) O2 Saturation 99 % (92-99) Arterial Blood pH 7.44 (7.35-7.45) Arterial Blood pCO2 at Patient Temp 33 mmHg (35-46) Arterial Blood pO2 at Patient Temp 171 mmHg (65-108) Arterial Blood HCO3 22 mmol/L (21-28) Arterial Blood Base Excess -1 mmol/L (-3-3) FiO2 40 Test 04/20/17 09:00 04/20/17 09:40 White Blood Count 13.6 x10^3/uL (4.0-11.0) Red Blood Count 3.67 x10^6/uL (4.30-5.70) Hemoglobin 12.7 g/dL (13.0-17.5) Hematocrit 38.1 % (39.0-53.0) Mean Corpuscular Volume 104 fL (79-100) Mean Corpuscular Hemoglobin 35 pg (25-35) Mean Corpuscular Hemoglobin Concent 33 g/dL (31-37) Red Cell Distribution Width 14.1 % (11.5-14.5) Platelet Count 69 x10^3/uL (140-400) Heparin Anti-Xa Act, Unfractionated 0.40 IU/mL (0.30-0.70) Ionized Calcium 0.98 mmol/L (1.13-1.32) Total Bilirubin 0.3 mg/dL (0.2-1.0) Direct Bilirubin 0.1 mg/dL (0.0-0.2) Aspartate Amino Transf (AST/SGOT) 65 U/L (15-37) Alanine Aminotransferase (ALT/SGPT) 42 U/L (16-63) Alkaline Phosphatase 57 U/L (46-116) Total Protein 4.4 g/dL (6.4-8.2) Albumin 1.8 g/dL (3.4-5.0) Lipase 40 U/L (73-393) O2 Saturation 99 % (92-99) Arterial Blood pH 7.42 (7.35-7.45) Arterial Blood pCO2 at Patient Temp 31 mmHg (35-46) Arterial Blood pO2 at Patient Temp 148 mmHg (65-108) Arterial Blood HCO3 20 mmol/L (21-28) Arterial Blood Base Excess -4 mmol/L (-3-3) FiO2 40 Laboratory Tests Test 04/19/17 16:11 04/19/17 20:25 04/19/17 20:40 04/20/17 00:00 Sodium Level 142 mmol/L (136-145) 139 mmol/L (136-145) 140 mmol/L (136-145) Potassium Level 4.2 mmol/L (3.5-5.1) 3.6 mmol/L (3.5-5.1) 3.7 mmol/L (3.5-5.1) Chloride Level 112 mmol/L (98-107) 109 mmol/L (98-107) 108 mmol/L (98-107) Carbon Dioxide Level 23 mmol/L (21-32) 22 mmol/L (21-32) 22 mmol/L (21-32) Anion Gap 7 (6-14) 8 (6-14) 10 (6-14) Blood Urea Nitrogen 6 mg/dL (8-26) 6 mg/dL (8-26) 5 mg/dL (8-26) Creatinine 0.5 mg/dL (0.7-1.3) 0.4 mg/dL (0.7-1.3) 0.4 mg/dL (0.7-1.3) Estimated GFR (Cockcroft-Gault) 164.9 213.3 213.3 Glucose Level 105 mg/dL (70-99) 123 mg/dL (70-99) 119 mg/dL (70-99) Calcium Level 6.9 mg/dL (8.5-10.1) 7.3 mg/dL (8.5-10.1) 7.3 mg/dL (8.5-10.1) Phosphorus Level 3.4 mg/dL (2.6-4.7) 2.8 mg/dL (2.6-4.7) 2.6 mg/dL (2.6-4.7) Magnesium Level 1.8 mg/dL (1.8-2.4) 1.8 mg/dL (1.8-2.4) 1.7 mg/dL (1.8-2.4) Heparin Anti-Xa Act, Unfractionated 0.11 IU/mL (0.30-0.70) Test 04/20/17 02:55 04/20/17 07:45 04/20/17 09:00 04/20/17 09:40 Heparin Anti-Xa Act, Unfractionated 0.39 IU/mL (0.30-0.70) 0.40 IU/mL (0.30-0.70) O2 Saturation 99 % (92-99) 99 % (92-99) Arterial Blood pH 7.44 (7.35-7.45) 7.42 (7.35-7.45) Arterial Blood pCO2 at Patient Temp 33 mmHg (35-46) 31 mmHg (35-46) Arterial Blood pO2 at Patient Temp 171 mmHg (65-108) 148 mmHg (65-108) Arterial Blood HCO3 22 mmol/L (21-28) 20 mmol/L (21-28) Arterial Blood Base Excess -1 mmol/L (-3-3) -4 mmol/L (-3-3) FiO2 40 40 White Blood Count 13.6 x10^3/uL (4.0-11.0) Red Blood Count 3.67 x10^6/uL (4.30-5.70) Hemoglobin 12.7 g/dL (13.0-17.5) Hematocrit 38.1 % (39.0-53.0) Mean Corpuscular Volume 104 fL (79-100) Mean Corpuscular Hemoglobin 35 pg (25-35) Mean Corpuscular Hemoglobin Concent 33 g/dL (31-37) Red Cell Distribution Width 14.1 % (11.5-14.5) Platelet Count 69 x10^3/uL (140-400) Ionized Calcium 0.98 mmol/L (1.13-1.32) Total Bilirubin 0.3 mg/dL (0.2-1.0) Direct Bilirubin 0.1 mg/dL (0.0-0.2) Aspartate Amino Transf (AST/SGOT) 65 U/L (15-37) Alanine Aminotransferase (ALT/SGPT) 42 U/L (16-63) Alkaline Phosphatase 57 U/L (46-116) Total Protein 4.4 g/dL (6.4-8.2) Albumin 1.8 g/dL (3.4-5.0) Lipase 40 U/L (73-393) Medications Active Scripts Medications Dose Route/Sig Max Daily Dose Days Date Category [No home meds] 04/18/17 Reported Impression . ACUTE RESPIRATORY FAILURE SEC TO CARDIAC ARREST VF/DEFIBRILLATED IN FIELD CAD PER CARD HYPOKALEMIA POSSIBLE ANOXIC BRAIN INJURY CARDIOGENIC SHOCK Brief cath note. Initial AO pressure 98/58, post IABP Ao 136/78 Coronaries Left main. 45-50% lesion. LAD. Mid 95% lesion. Distal collaterals to the RCA. LCX. Proximal 80% lesion, OM1 85% lesion. RCA. Proximal chronic occlusion with distal collaterals from the RCA and LAD. No LV gram. AO root and abd. aorta without significant lesions. IABP placed from right femoral access without complications. Conclusions. 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 IABP placed with significant improvement in BP. Will consider for CABG. The patient remains on a ventilator. Discussed with the patients family. Full report to follow. Plan . EXTUBATED DID WELL ON TRIAL WILL CONITNUE SUPPORT WITH 02 FOLLOW MARYANA GALDAMEZ D/C VERSED AND FENTANYL PRN SEDATION PRESSORS PER APRIL ALARCON MD Apr 20, 2017 15:13
[2017-04-20] MEDS ORDERED: HALOPERIDOL LACTATE 5 MG/ML VIAL. IVP ONE (22:00)
[2017-04-21] VITALS (29 sets, daily range): BP systolic 105–167; BP diastolic 43–84
[2017-04-21] MEDS: IV NORMAL SALINE 1000ML BAG 1,000 ML IV SCH ×2 (03:38→15:15)
[2017-04-21] MEDS: fentaNYL PF VIAL 100 MCG/2 ML VIAL IV PRN ×3 (03:39→23:47)
[2017-04-21 06:16] LABS: BASO % 0 % (0-3); EOS % 0 % (0-3); HEMATOCRIT 31.9 % (39.0-53.0); HEMOGLOBIN 11.2 g/dL (13.0-17.5); LYMPH # 0.8 x10^3/uL (1.0-4.8); LYMPH % 8 % (24-48); MEAN CORPUSCULAR HEMOGLOBIN 36 pg (25-35); MEAN CORPUSCULAR HGB CONC 35 g/dL (31-37); MEAN CORPUSCULAR VOLUME 102 fL (79-100); MONO % 8 % (0-9); NEUT % 84 % (31-73); PLATELET COUNT 73 x10^3/uL (140-400); RED BLOOD COUNT 3.13 x10^6/uL (4.30-5.70); RED CELL DISTRIBUTION WIDTH 13.8 % (11.5-14.5); WHITE BLOOD COUNT 9.2 x10^3/uL (4.0-11.0)
[2017-04-21 06:32] LABS: CALCIUM 6.8 mg/dL (8.5-10.1); CREATININE 0.5 mg/dL (0.7-1.3); GFR 164.9; MAGNESIUM 1.9 mg/dL (1.8-2.4)
[2017-04-21] MEDS: POTASSIUM CHLORIDE 20MEQ 50 ML IV SCH ×4 (07:39→15:07)
[2017-04-21] MEDS: AMIODARONE 450 MG in IV DEXTROSE 5% 250 ML IV PRN ×2 (08:24→22:27)
--- NOTE | 2017-04-21 08:29 | RAD ---
Portable chest, 04/21/2017: History: Respiratory failure Comparison is made to yesterday's study. The ET tube and NG tube have been removed. The depth of inspiration is not as good as on yesterday's study. There are worsening bilateral pulmonary infiltrates with increasing loss of definition of the pulmonary vascularity. The findings suggest pulmonary edema. A dense retrocardiac opacity in the left lower chest is unchanged. There is no evidence of pneumothorax. IMPRESSION: Worsening moderate bilateral pulmonary infiltrates most compatible with pulmonary edema
--- NOTE | 2017-04-21 08:55 | PDOC ---
PROGRESS NOTES Chief Complaint Chief Complaint 1. Post code 2. cardiac arrest, vifb, 2/2 acute SD likely, possible STEMI 3. ACUTE resp failure with cardiac arrest 4. hypokalemia 5. shock ,cardiogenic likely 6. leukocytosis, reactive 7. AMS, from cardiac arrest 8. Multivessel disease including left main History of Present Illness History of Present Illness Patient was seen in the ICU. Patient was extubated yesterday. Today, patient is opening eyes spontaneously and has started responding to speech. Patient appears to be much improved since previous days and he appears to be regaining his mental faculties. Vitals Vitals Vital Signs Date Time Temp Pulse Resp B/P (MAP) Pulse Ox O2 Delivery O2 Flow Rate FiO2 04/21/17 07:00 97.4 68 22 123/47 (72) 97 Nasal Cannula 3.0 97.4 Physical Exam General: Alert, No acute distress, Other (increased responsiveness to external stimuli) Heart: Normal S1, Normal S2 Lungs: Crackles Abdomen: Soft Extremities: No edema, Other (1+ left DP and right DP by Doppler) Skin: No rashes Labs LABS Laboratory Tests Test 04/20/17 09:00 04/20/17 09:40 04/21/17 05:40 White Blood Count 13.6 x10^3/uL (4.0-11.0) 9.2 x10^3/uL (4.0-11.0) Red Blood Count 3.67 x10^6/uL (4.30-5.70) 3.13 x10^6/uL (4.30-5.70) Hemoglobin 12.7 g/dL (13.0-17.5) 11.2 g/dL (13.0-17.5) Hematocrit 38.1 % (39.0-53.0) 31.9 % (39.0-53.0) Mean Corpuscular Volume 104 fL (79-100) 102 fL (79-100) Mean Corpuscular Hemoglobin 35 pg (25-35) 36 pg (25-35) Mean Corpuscular Hemoglobin Concent 33 g/dL (31-37) 35 g/dL (31-37) Red Cell Distribution Width 14.1 % (11.5-14.5) 13.8 % (11.5-14.5) Platelet Count 69 x10^3/uL (140-400) 73 x10^3/uL (140-400) Heparin Anti-Xa Act, Unfractionated 0.40 IU/mL (0.30-0.70) 0.31 IU/mL (0.30-0.70) Ionized Calcium 0.98 mmol/L (1.13-1.32) Total Bilirubin 0.3 mg/dL (0.2-1.0) Direct Bilirubin 0.1 mg/dL (0.0-0.2) Aspartate Amino Transf (AST/SGOT) 65 U/L (15-37) Alanine Aminotransferase (ALT/SGPT) 42 U/L (16-63) Alkaline Phosphatase 57 U/L (46-116) Total Protein 4.4 g/dL (6.4-8.2) Albumin 1.8 g/dL (3.4-5.0) Lipase 40 U/L (73-393) O2 Saturation 99 % (92-99) Arterial Blood pH 7.42 (7.35-7.45) Arterial Blood pCO2 at Patient Temp 31 mmHg (35-46) Arterial Blood pO2 at Patient Temp 148 mmHg (65-108) Arterial Blood HCO3 20 mmol/L (21-28) Arterial Blood Base Excess -4 mmol/L (-3-3) FiO2 40 Neutrophils (%) (Auto) 84 % (31-73) Lymphocytes (%) (Auto) 8 % (24-48) Monocytes (%) (Auto) 8 % (0-9) Eosinophils (%) (Auto) 0 % (0-3) Basophils (%) (Auto) 0 % (0-3) Neutrophils # (Auto) 7.7 x10^3uL (1.8-7.7) Lymphocytes # (Auto) 0.8 x10^3/uL (1.0-4.8) Monocytes # (Auto) 0.7 x10^3/uL (0.0-1.1) Eosinophils # (Auto) 0.0 x10^3/uL (0.0-0.7) Basophils # (Auto) 0.0 x10^3/uL (0.0-0.2) Sodium Level 141 mmol/L (136-145) Potassium Level 3.0 mmol/L (3.5-5.1) Chloride Level 110 mmol/L (98-107) Carbon Dioxide Level 26 mmol/L (21-32) Anion Gap 5 (6-14) Blood Urea Nitrogen 8 mg/dL (8-26) Creatinine 0.5 mg/dL (0.7-1.3) Estimated GFR (Cockcroft-Gault) 164.9 Glucose Level 104 mg/dL (70-99) Calcium Level 6.8 mg/dL (8.5-10.1) Magnesium Level 1.9 mg/dL (1.8-2.4) Review of Systems Review of Systems Patient is now responsive to speech; denies with use of gestures any agitation or pain Assessment and Plan Assessmemt and Plan Assessment: 1. Post code 2. cardiac arrest, vifb, 2/2 acute SD likely, possible STEMI 3. ACUTE resp failure with cardiac arrest 4. hypokalemia 5. shock ,cardiogenic likely 6. leukocytosis, reactive 7. AMS, from cardiac arrest 8. Multivessel disease including left main Plan: 1 Continuing ICU care [address] and monitoring urine output 3 DVT and GI prophylaxis 4 Continuing to monitor potassium - replacement this morning for K+ of 3.0 5 Appreciate subspecialty input and assistance 6 Discussed plan with nursing 7 Patient extubated. Monitor for respiratory issues. Balloon pump still in place ; likely removed today. 8 CABG likely next week Problems: Comment Review of Relevant I have reviewed the following items erna (where applicable) has been applied. Labs Laboratory Tests Test 04/19/17 11:45 04/19/17 14:40 04/19/17 16:11 04/19/17 20:25 Sodium Level 143 mmol/L (136-145) 142 mmol/L (136-145) Potassium Level 4.3 mmol/L (3.5-5.1) 4.2 mmol/L (3.5-5.1) Chloride Level 111 mmol/L (98-107) 112 mmol/L (98-107) Carbon Dioxide Level 22 mmol/L (21-32) 23 mmol/L (21-32) Anion Gap 10 (6-14) 7 (6-14) Blood Urea Nitrogen 7 mg/dL (8-26) 6 mg/dL (8-26) Creatinine 0.5 mg/dL (0.7-1.3) 0.5 mg/dL (0.7-1.3) Estimated GFR (Cockcroft-Gault) 164.9 164.9 Glucose Level 103 mg/dL (70-99) 105 mg/dL (70-99) Calcium Level 6.6 mg/dL (8.5-10.1) 6.9 mg/dL (8.5-10.1) Phosphorus Level 3.3 mg/dL (2.6-4.7) 3.4 mg/dL (2.6-4.7) Magnesium Level 1.7 mg/dL (1.8-2.4) 1.8 mg/dL (1.8-2.4) White Blood Count 13.1 x10^3/uL (4.0-11.0) Red Blood Count 4.41 x10^6/uL (4.30-5.70) Hemoglobin 15.4 g/dL (13.0-17.5) Hematocrit 45.2 % (39.0-53.0) Mean Corpuscular Volume 102 fL (79-100) Mean Corpuscular Hemoglobin 35 pg (25-35) Mean Corpuscular Hemoglobin Concent 34 g/dL (31-37) Red Cell Distribution Width 14.3 % (11.5-14.5) Platelet Count 98 x10^3/uL (140-400) Prothrombin Time 15.9 SEC (11.7-14.0) Prothromb Time International Ratio 1.4 (0.8-1.1) Activated Partial Thromboplast Time 113 SEC (24-38) Heparin Anti-Xa Act, Unfractionated 0.28 IU/mL (0.30-0.70) 0.11 IU/mL (0.30-0.70) Lactic Acid Level 1.1 mmol/L (0.4-2.0) Test 04/19/17 20:40 04/20/17 00:00 04/20/17 02:55 04/20/17 07:45 Sodium Level 139 mmol/L (136-145) 140 mmol/L (136-145) Potassium Level 3.6 mmol/L (3.5-5.1) 3.7 mmol/L (3.5-5.1) Chloride Level 109 mmol/L (98-107) 108 mmol/L (98-107) Carbon Dioxide Level 22 mmol/L (21-32) 22 mmol/L (21-32) Anion Gap 8 (6-14) 10 (6-14) Blood Urea Nitrogen 6 mg/dL (8-26) 5 mg/dL (8-26) Creatinine 0.4 mg/dL (0.7-1.3) 0.4 mg/dL (0.7-1.3) Estimated GFR (Cockcroft-Gault) 213.3 213.3 Glucose Level 123 mg/dL (70-99) 119 mg/dL (70-99) Calcium Level 7.3 mg/dL (8.5-10.1) 7.3 mg/dL (8.5-10.1) Phosphorus Level 2.8 mg/dL (2.6-4.7) 2.6 mg/dL (2.6-4.7) Magnesium Level 1.8 mg/dL (1.8-2.4) 1.7 mg/dL (1.8-2.4) Heparin Anti-Xa Act, Unfractionated 0.39 IU/mL (0.30-0.70) O2 Saturation 99 % (92-99) Arterial Blood pH 7.44 (7.35-7.45) Arterial Blood pCO2 at Patient Temp 33 mmHg (35-46) Arterial Blood pO2 at Patient Temp 171 mmHg (65-108) Arterial Blood HCO3 22 mmol/L (21-28) Arterial Blood Base Excess -1 mmol/L (-3-3) FiO2 40 Test 04/20/17 09:00 04/20/17 09:40 04/21/17 05:40 White Blood Count 13.6 x10^3/uL (4.0-11.0) 9.2 x10^3/uL (4.0-11.0) Red Blood Count 3.67 x10^6/uL (4.30-5.70) 3.13 x10^6/uL (4.30-5.70) Hemoglobin 12.7 g/dL (13.0-17.5) 11.2 g/dL (13.0-17.5) Hematocrit 38.1 % (39.0-53.0) 31.9 % (39.0-53.0) Mean Corpuscular Volume 104 fL (79-100) 102 fL (79-100) Mean Corpuscular Hemoglobin 35 pg (25-35) 36 pg (25-35) Mean Corpuscular Hemoglobin Concent 33 g/dL (31-37) 35 g/dL (31-37) Red Cell Distribution Width 14.1 % (11.5-14.5) 13.8 % (11.5-14.5) Platelet Count 69 x10^3/uL (140-400) 73 x10^3/uL (140-400) Heparin Anti-Xa Act, Unfractionated 0.40 IU/mL (0.30-0.70) 0.31 IU/mL (0.30-0.70) Ionized Calcium 0.98 mmol/L (1.13-1.32) Total Bilirubin 0.3 mg/dL (0.2-1.0) Direct Bilirubin 0.1 mg/dL (0.0-0.2) Aspartate Amino Transf (AST/SGOT) 65 U/L (15-37) Alanine Aminotransferase (ALT/SGPT) 42 U/L (16-63) Alkaline Phosphatase 57 U/L (46-116) Total Protein 4.4 g/dL (6.4-8.2) Albumin 1.8 g/dL (3.4-5.0) Lipase 40 U/L (73-393) O2 Saturation 99 % (92-99) Arterial Blood pH 7.42 (7.35-7.45) Arterial Blood pCO2 at Patient Temp 31 mmHg (35-46) Arterial Blood pO2 at Patient Temp 148 mmHg (65-108) Arterial Blood HCO3 20 mmol/L (21-28) Arterial Blood Base Excess -4 mmol/L (-3-3) FiO2 40 Neutrophils (%) (Auto) 84 % (31-73) Lymphocytes (%) (Auto) 8 % (24-48) Monocytes (%) (Auto) 8 % (0-9) Eosinophils (%) (Auto) 0 % (0-3) Basophils (%) (Auto) 0 % (0-3) Neutrophils # (Auto) 7.7 x10^3uL (1.8-7.7) Lymphocytes # (Auto) 0.8 x10^3/uL (1.0-4.8) Monocytes # (Auto) 0.7 x10^3/uL (0.0-1.1) Eosinophils # (Auto) 0.0 x10^3/uL (0.0-0.7) Basophils # (Auto) 0.0 x10^3/uL (0.0-0.2) Sodium Level 141 mmol/L (136-145) Potassium Level 3.0 mmol/L (3.5-5.1) Chloride Level 110 mmol/L (98-107) Carbon Dioxide Level 26 mmol/L (21-32) Anion Gap 5 (6-14) Blood Urea Nitrogen 8 mg/dL (8-26) Creatinine 0.5 mg/dL (0.7-1.3) Estimated GFR (Cockcroft-Gault) 164.9 Glucose Level 104 mg/dL (70-99) Calcium Level 6.8 mg/dL (8.5-10.1) Magnesium Level 1.9 mg/dL (1.8-2.4) Laboratory Tests Test 04/20/17 09:00 04/20/17 09:40 04/21/17 05:40 White Blood Count 13.6 x10^3/uL (4.0-11.0) 9.2 x10^3/uL (4.0-11.0) Red Blood Count 3.67 x10^6/uL (4.30-5.70) 3.13 x10^6/uL (4.30-5.70) Hemoglobin 12.7 g/dL (13.0-17.5) 11.2 g/dL (13.0-17.5) Hematocrit 38.1 % (39.0-53.0) 31.9 % (39.0-53.0) Mean Corpuscular Volume 104 fL (79-100) 102 fL (79-100) Mean Corpuscular Hemoglobin 35 pg (25-35) 36 pg (25-35) Mean Corpuscular Hemoglobin Concent 33 g/dL (31-37) 35 g/dL (31-37) Red Cell Distribution Width 14.1 % (11.5-14.5) 13.8 % (11.5-14.5) Platelet Count 69 x10^3/uL (140-400) 73 x10^3/uL (140-400) Heparin Anti-Xa Act, Unfractionated 0.40 IU/mL (0.30-0.70) 0.31 IU/mL (0.30-0.70) Ionized Calcium 0.98 mmol/L (1.13-1.32) Total Bilirubin 0.3 mg/dL (0.2-1.0) Direct Bilirubin 0.1 mg/dL (0.0-0.2) Aspartate Amino Transf (AST/SGOT) 65 U/L (15-37) Alanine Aminotransferase (ALT/SGPT) 42 U/L (16-63) Alkaline Phosphatase 57 U/L (46-116) Total Protein 4.4 g/dL (6.4-8.2) Albumin 1.8 g/dL (3.4-5.0) Lipase 40 U/L (73-393) O2 Saturation 99 % (92-99) Arterial Blood pH 7.42 (7.35-7.45) Arterial Blood pCO2 at Patient Temp 31 mmHg (35-46) Arterial Blood pO2 at Patient Temp 148 mmHg (65-108) Arterial Blood HCO3 20 mmol/L (21-28) Arterial Blood Base Excess -4 mmol/L (-3-3) FiO2 40 Neutrophils (%) (Auto) 84 % (31-73) Lymphocytes (%) (Auto) 8 % (24-48) Monocytes (%) (Auto) 8 % (0-9) Eosinophils (%) (Auto) 0 % (0-3) Basophils (%) (Auto) 0 % (0-3) Neutrophils # (Auto) 7.7 x10^3uL (1.8-7.7) Lymphocytes # (Auto) 0.8 x10^3/uL (1.0-4.8) Monocytes # (Auto) 0.7 x10^3/uL (0.0-1.1) Eosinophils # (Auto) 0.0 x10^3/uL (0.0-0.7) Basophils # (Auto) 0.0 x10^3/uL (0.0-0.2) Sodium Level 141 mmol/L (136-145) Potassium Level 3.0 mmol/L (3.5-5.1) Chloride Level 110 mmol/L (98-107) Carbon Dioxide Level 26 mmol/L (21-32) Anion Gap 5 (6-14) Blood Urea Nitrogen 8 mg/dL (8-26) Creatinine 0.5 mg/dL (0.7-1.3) Estimated GFR (Cockcroft-Gault) 164.9 Glucose Level 104 mg/dL (70-99) Calcium Level 6.8 mg/dL (8.5-10.1) Magnesium Level 1.9 mg/dL (1.8-2.4) Microbiology 04/17/17 Blood Culture - Preliminary, Resulted NO GROWTH AFTER 3 DAYS Medications Current Medications Heparin Sodium (Porcine) (Heparin Sodium) 10,000 unit STK-MED ONCE .ROUTE ; Start 04/17/17 at 19:03; Stop 04/17/17 at 19:04; Status DC Heparin Sodium (Porcine) (Heparin Sodium) 4,000 unit 1X ONCE IV Last administered on 04/17/17 19:05; Start 04/17/17 at 19:15; Stop 04/17/17 at 19:49; Status DC Sodium Chloride 1,000 ml @ 1,000 mls/hr Q1H IV Last administered on 04/17/17 19:07; Start 04/17/17 at 19:07; Stop 04/17/17 at 20:06; Status DC Midazolam HCl 100 ml @ As Directed STK-MED ONCE IV ; Start 04/17/17 at 19:15; Stop 04/17/17 at 19:16; Status DC Etomidate (Amidate) 20 mg STK-MED ONCE IV ; Start 04/17/17 at 19:15; Stop at 19:16; Status DC Succinylcholine Chloride (Anectine) 200 mg STK-MED ONCE .ROUTE ; Start 04/17/17 at 19:16; Stop 04/17/17 at 19:17; Status DC Heparin Sodium/ Sodium Chloride 1,500 ml @ As Directed STK-MED ONCE .ROUTE ; Start 04/17/17 at 19:24; Stop 04/17/17 at 19:25; Status DC Lidocaine HCl 20 ml STK-MED ONCE .ROUTE ; Start 04/17/17 at 19:24; Stop 04/17/17 at 19:25; Status DC Iodixanol (Visipaque 320) 100 ml STK-MED ONCE .ROUTE ; Start 04/17/17 at 19:24; Stop 04/17/17 at 19:25; Status DC Dopamine HCl/ Dextrose 250 ml @ 0 mls/hr CONT PRN IV SEE I/O RECORD Last administered on 04/17/17 19:32; Start 04/17/17 at 19:30; Stop 04/17/17 at 20:54; Status DC Dopamine HCl/ Dextrose 250 ml @ As Directed STK-MED ONCE IV ; Start 04/17/17 at 19:30; Stop 04/17/17 at 19:31; Status DC Ondansetron HCl (Zofran) 4 mg PRN Q8HRS PRN IV NAUSEA/VOMITING; Start 04/17/17 at 19:30; Stop 04/18/17 at 19:29; Status DC Sodium Chloride 1,000 ml @ 100 mls/hr Q10H IV Last administered on 04/18/17 12 :35; Start 04/17/17 at 19:30; Stop 04/18/17 at 19:29; Status DC Acetaminophen (Tylenol) 650 mg PRN Q4HRS PRN PO FEVER; Start 04/17/17 at 19:30; Stop 04/18/17 at 19:29; Status DC Heparin Sodium (Porcine) (Heparin Sodium) 10,000 unit STK-MED ONCE .ROUTE ; Start 04/17/17 at 20:16; Stop 04/17/17 at 20:17; Status DC Tirofiban/Sodium Chloride 0 ml @ As Directed STK-MED ONCE IV ; Start 04/17/17 at 20:16; Stop 04/17/17 at 20:17; Status DC Famotidine (Pepcid) 20 mg QHS IVP Last administered on 04/17/17 22:30; Start at 21:00; Stop 04/19/17 at 08:05; Status DC Etomidate (Amidate) 20 mg 1X ONCE IV Last administered on 04/17/17 19:00; Start 04/17/17 at 20:30; Stop 04/17/17 at 21:05; Status DC Succinylcholine Chloride (Anectine) 100 mg 1X ONCE IV Last administered on 04/17 19:00; Start 04/17/17 at 20:30; Stop 04/17/17 at 21:07; Status DC Lidocaine HCl/ Dextrose 500 ml @ 0 mls/hr 1X ONCE IV Last administered on 18:55; Start 04/17/17 at 20:30; Stop 04/17/17 at 21:08; Status DC Dopamine HCl/ Dextrose 250 ml @ 0 mls/hr CONT PRN IV SEE I/O RECORD Last administered on 04/20/17 09:36; Start 04/17/17 at 20:30 Heparin Sodium/ Dextrose 500 ml @ As Directed STK-MED ONCE IV ; Start 04/17/17 at 20:43; Stop 04/17/17 at 20:44; Status DC Heparin Sodium/ Dextrose 500 ml @ 0 mls/hr CONT PRN IV SEE I/O RECORD Last administered on 04/19/17 01:48; Start 04/17/17 at 20:45; Stop 04/19/17 at 16:41; Status DC Midazolam HCl (Versed) 5 mg 1X ONCE IV Last administered on 04/17/17 19:17; Start 04/17/17 at 21:00; Stop 04/17/17 at 21:07; Status DC Heparin Sodium (Porcine) (Heparin Sodium) 2,000 unit 1X ONCE IV Last administered on 04/17/17 20:59; Start 04/17/17 at 21:00; Stop 04/17/17 at 21:06; Status DC Iodixanol (Visipaque 320) 134 ml 1X ONCE IART Last administered on 04/17/17 20 :58; Start 04/17/17 at 21:00; Stop 04/17/17 at 21:04; Status DC Lidocaine HCl 20 ml 1X ONCE IJ Last administered on 04/17/17 20:58; Start 04/17 at 21:00; Stop 04/17/17 at 21:08; Status DC Fentanyl Citrate 30 ml @ As Directed STK-MED ONCE IV ; Start 04/17/17 at 21:09; Stop 04/17/17 at 21:10; Status DC Sodium Chloride 1,000 ml @ 1,000 mls/hr Q1H IV Last administered on 04/17/17 23:30; Start 04/17/17 at 21:30; Stop 04/18/17 at 03:42; Status DC Fentanyl Citrate (Fentanyl 2ml Vial) 25 mcg PRN Q30MIN PRN IV SED; Start at 21:30 Lorazepam (Ativan) 1 mg PRN Q30MIN PRN IV SEDATION Last administered on 20:49; Start 04/17/17 at 21:30; Stop 04/20/17 at 21:45; Status DC Fentanyl Citrate 30 ml @ 2.5 mls/hr CONT PRN PRN IV IVF Last administered on 13:30; Start 04/17/17 at 21:30 Propofol 100 ml @ 0 mls/hr CONT PRN IV SEE I/O RECORD Last administered on 09:26; Start 04/17/17 at 21:30 Vecuronium [place] (Norcuron Bolus) DOSE AT 0.1 mg/kg PRN Q30MIN PRN IV SHIVERING Last administered on 04/18/17 16:00; Start 04/17/17 at 21:30 Meperidine HCl (Demerol) 12.5 mg PRN Q30MIN PRN IV SHIVERING Last administered on 04/18/17 04:17; Start 04/17/17 at 21:30; Stop 04/18/17 at 04:18; Status DC Multi-Ingred Cream/Lotion/Oil/ Oint (Artificial Tears Eye Oint) 1 balaji PRN Q6HRS PRN OU 0.5 INCH FOR DRY EYE Last administered on 04/18/17 23:57; Start at 21:30 Famotidine (Pepcid) 20 mg BID IVP Last administered on 04/20/17 21:47; Start at 09:00 Aspirin (Aspirin) [address] Last administered on 04/20/17 09:29; Start at 09:00 Sodium Chloride (Normal Saline Flush) 3 ml QSHIFT PRN IV AFTER MEDS AND BLOOD DRAWS; Start 04/17/17 at 21:30 Acetaminophen (Tylenol) 650 mg Q6HRS NG ; Start 04/18/17 at 00:00; Stop 04/18/17 at 23:59; Status DC Acetaminophen (Acetaminophen Supp) 650 [address]N Q6HRS [address] CT MILD PAIN / TEMP Last administered on 04/19/17 12:20; Start 04/18/17 at 21:30 Acetaminophen (Tylenol) 650 mg PRN Q6HRS PRN NG MILD PAIN / TEMP; Start at 21:30 Info 1 ea DAILY PRN MC PER PROTOCOL; Start 04/19/17 at 21:30 Heparin Sodium/ Dextrose 500 ml @ 0 mls/hr CONT PRN IV SEE I/O RECORD; Start at 21:30; Stop 04/19/17 at 07:26; Status DC Heparin Sodium (Porcine) (Heparin Sodium) 1,450 unit PRN Q6HRS PRN IV FOR UFH LEVEL LESS THAN 0.2; Start 04/17/17 at 21:30; Stop 04/19/17 at 16:41; Status DC Sodium Chloride 1,000 ml @ 60 mls/hr [id number] IV Last administered on 04/19/17 10:21; Start 04/17/17 at 21:45; Stop 04/19/17 at 18:15; Status DC Midazolam HCl 100 ml @ 0 mls/hr CONT PRN IV SEE I/O RECORD; Start 04/17/17 at 22 :00 Sodium Bicarbonate 100 meq 1X ONCE IV Last administered on 04/18/17 02:02; Start 04/18/17 at 00:00; Stop 04/18/17 at 00:01; Status DC Amiodarone HCl 900 mg/Dextrose 518 ml @ 0 mls/hr 1X ONCE IV Last administered on 04/18/17 08:00; Start 04/18/17 at 08:00; Stop 04/18/17 at 08:01; Status DC Pneumococcal Polyvalent Vaccine (Do NOT chart on this placeholder) 1 each PRN DAILY PRN MC UNABLE TO RESPOND; Start 04/18/17 at 08:45 Amiodarone HCl 900 mg/Dextrose 518 ml @ 34.53 mls/ hr CONT PRN IV SEE I/O RECORD; Start 04/18/17 at 09:45; Stop 04/20/17 at 02:29; Status DC Potassium Chloride 50 ml @ 50 mls/hr 1X ONCE IV ; Start 04/18/17 at 10:30; Stop 04/18/17 at 10:30; Status DC Potassium Chloride 100 ml @ 100 mls/hr Q1H IV Last administered on 04/18/17 11 :39; Start 04/18/17 at 10:30; Stop 04/18/17 at 12:29; Status DC Ephedrine Sulfate 50 mg STK-MED ONCE IV ; Start 04/18/17 at 14:56; Stop 04/18/17 at 14:57; Status DC Potassium Chloride 50 ml @ 50 mls/hr Q1H IV Last administered on 04/18/17 19:23 ; Start 04/18/17 at 17:30; Stop 04/18/17 at 20:29; Status DC Magnesium Sulfate/ Dextrose 100 ml @ 100 mls/hr 1X ONCE IV Last administered on 04/18/17 17:10; Start 04/18/17 at 17:30; Stop 04/18/17 at 18:29; Status DC Calcium Gluconate (Calcium Gluconate) 1,000 mg 1X ONCE IV Last administered on 04/18/17 17:08; Start 04/18/17 at 17:15; Stop 04/18/17 at 17:16; Status DC Epinephrine HCl (EPINEPHrine SYRINGE) 1 mg STK-MED ONCE .ROUTE ; Start 04/17/17 at 17:03; Stop 04/18/17 at 17:03; Status DC Info (Anti-Coagulation Monitoring By Pharmacy) 1 each PRN DAILY PRN MC SEE COMMENTS Last administered on 04/20/17 08:40; Start 04/19/17 at 08:15 Chlorhexidine Gluconate (Peridex) 15 ml BID MM Last administered on 04/20/17 21 :47; Start 04/19/17 at 09:00 Amiodarone HCl 450 mg/Dextrose 259 ml @ 17.26 mls/ hr CONT PRN IV SEE I/O RECORD Last administered on 04/21/17 08:24; Start 04/19/17 at 13:00 Midazolam HCl (Versed) 5 mg STK-MED ONCE .ROUTE ; Start 04/19/17 at 16:21; Stop 04/19/17 at 16:22; Status DC Midazolam HCl (Versed) 1 mg PRN Q2HR PRN IV SEDATION FOR VENT; Start 04/19/17 at 16:30 Fentanyl Citrate (Fentanyl 2ml Vial) 25 mcg PRN Q2HR PRN IV PAIN; Start at 16:30 Fentanyl Citrate (Fentanyl 2ml Vial) 50 mcg PRN Q2HR PRN IV PAIN Last administered on 04/21/17 03:39; Start 04/19/17 at 16:30 Midazolam HCl (Versed) 2 mg PRN Q2HR PRN IV SEDATION FOR VENT Last administered on 04/20/17 07:24; Start 04/19/17 at 16:30 Heparin Sodium/ Dextrose 500 ml @ 0 mls/hr CONT PRN IV SEE I/O RECORD Last administered on 04/20/17 07:26; Start 04/19/17 at 16:45 Heparin Sodium (Porcine) (Heparin Sodium) 1,450 unit PRN Q6HRS PRN IV FOR UFH LEVEL LESS THAN 0.2 Last administered on 04/19/17 20:56; Start 04/19/17 at 16:45 Midazolam HCl (Versed) 2 mg 1X ONCE IV Last administered on 04/19/17 16:45; Start 04/19/17 at 16:45; Stop 04/19/17 at 16:46; Status DC Sodium Chloride 1,000 ml @ 100 mls/hr Q10H IV Last administered on 04/21/17 03 :38; Start 04/19/17 at 18:15 Magnesium Sulfate/ Dextrose 50 ml @ 25 mls/hr 1X ONCE IV Last administered on 04/20/17 12:22; Start 04/20/17 at 11:45; Stop 04/20/17 at 13:44; Status DC Haloperidol Lactate (Haldol) 5 mg 1X ONCE IVP ; Start 04/20/17 at 22:00; Stop at 22:01; Status DC Lorazepam (Ativan) 1 mg PRN Q3HRS PRN IV ANXIETY / AGITATION Last administered on 04/21/17 03:44; Start 04/20/17 at 21:30 Potassium Chloride 50 ml @ 25 mls/hr Q2H IV Last administered on 04/21/17 07:39 ; Start 04/21/17 at 07:00; Stop 04/21/17 at 14:59 Active Scripts Active Reported [No home meds] Vitals/I & O Vital Sign - Last 24 Hours 04/20/17 04/20/17 04/20/17 04/20/17 09:00 09:11 10:00 11:00 Pulse 62 75 66 Resp 14 15 14 B/P (MAP) 118/59 (78) 114/65 (81) 120/60 (80) Pulse Ox 99 99 99 99 O2 Delivery Ventilator Ventilator Ventilator Ventilator 04/20/17 04/20/17 04/20/17 04/20/17 11:42 12:00 12:00 12:00 Pulse 70 66 Resp 15 B/P (MAP) 117/67 (84) 120/63 (82) Pulse Ox 99 98 O2 Delivery Ventilator BiPAP/CPAP Nasal Cannula O2 Flow Rate 2.0 04/20/17 04/20/17 04/20/17 04/20/17 13:00 13:38 14:00 15:00 Temp 98.4 98.4 Pulse 75 67 63 63 Resp 24 21 26 21 B/P (MAP) 114/60 (78) 98/40 (59) 100/51 (67) 92/52 (65) Pulse Ox 95 98 98 98 O2 Delivery Nasal Cannula Nasal Cannula Nasal Cannula Nasal Cannula O2 Flow Rate 2.0 2.0 2.0 2.0 04/20/17 04/20/17 04/20/17 04/20/17 16:00 16:00 16:00 17:00 Temp 98.1 98.1 Pulse 87 64 55 Resp 18 21 B/P (MAP) 104/50 (68) 110/41 (64) 110/52 (71) Pulse Ox 98 98 O2 Delivery Nasal Cannula Nasal Cannula Nasal Cannula O2 Flow Rate 2.0 2.0 2.0 04/20/17 04/20/17 04/20/17 04/20/17 18:00 19:00 19:41 20:00 Temp 98.0 98.0 Pulse 60 60 58 Resp 24 16 22 B/P (MAP) 96/49 (65) 120/71 (87) 117/71 (86) Pulse Ox 95 98 98 O2 Delivery Nasal Cannula Nasal Cannula Nasal Cannula Nasal Cannula O2 Flow Rate 2.0 2.0 2.0 2.0 04/20/17 04/20/17 04/20/17 04/20/17 20:00 21:00 21:15 22:00 Pulse 58 81 64 Resp 27 22 16 B/P (MAP) 117/71 (86) 136/64 (88) 100/66 (77) Pulse Ox 94 98 94 O2 Delivery Nasal Cannula Nasal Cannula Nasal Cannula O2 Flow Rate 2.0 2.0 2.0 04/20/17 04/20/1704/20/04/20/17 22:59 23:27 23:53 23:54 Pulse 62 57 Resp 24 26 B/P (MAP) 110/68 (82) 112/71 (85) Pulse Ox 95 94 O2 Delivery Nasal Cannula Nasal Cannula Nasal Cannula O2 Flow Rate 2.0 2.0 2.0 04/20/17 04/21/17 04/21/17 04/21/17 23:57 01:00 02:00 03:00 Temp 97.8 97.8 Pulse 57 54 60 70 Resp 20 17 20 28 B/P (MAP) 117/58 (77) 105/63 (77) 121/61 (81) 137/79 (98) Pulse Ox 96 96 94 96 O2 Delivery Nasal Cannula Nasal Cannula Nasal Cannula Nasal Cannula O2 Flow Rate 2.0 2.0 2.0 2.0 04/21/17 04/21/17 04/21/17 04/21/17 03:39 04:00 04:00 04:00 Temp 97.1 97.1 Pulse 60 60 Resp 30 8 B/P (MAP) 114/70 (85) 114/70 (85) Pulse Ox 95 95 O2 Delivery Nasal Cannula Nasal Cannula Nasal Cannula O2 Flow Rate 2.0 2.0 2.0 04/21/17 04/21/17 04/21/17 04/21/17 04:15 05:00 05:55 07:00 Temp 97.4 97.4 Pulse 56 52 68 Resp 18 23 25 22 B/P (MAP) 107/67 (80) 114/43 (66) 123/47 (72) Pulse Ox 95 95 97 97 O2 Delivery Nasal Cannula Nasal Cannula Nasal Cannula Nasal Cannula O2 Flow Rate 2.0 2.0 2.0 3.0 Intake and Output 04/20/17 04/20/17 04/21/17 15:00 23:00 07:00 Intake Total 50 ml 2306.1 ml 2353 ml Output Total 1455 ml 915 ml 1650 ml Balance -1405 ml 1391.1 ml 703 ml Nutrition Consultation Dietary Evaluation: Comments: REC tube feedings when medically stable Expected Outcomes/Goals: to meet > 50% est nutr needs Interpretation of weight loss: >20% in 1 year Malnutrition Findings: Body Fat Depletion (Non Severe: Mild Depletion Weight Status: Underweight ANTHONY MARTI III DO Apr 21, 2017 08:55
[2017-04-21] MEDS: ASPIRIN 300 MG SUPP.RECT PR SCH (09:00)
[2017-04-21] MEDS: CHLORHEXIDINE 0.12% 15 ML MOUTHWASH. MM SCH (09:00)
[2017-04-21] MEDS: FAMOTIDINE 20 MG/2 ML VIAL IVP SCH (09:00)
[2017-04-21] MEDS ORDERED: MAGNESIUM SULFATE 2GM 100 ML IV ONE (13:00)
[2017-04-21] MEDS ORDERED: MAGNESIUM SULFATE 2GM 50 ML IV ONE (13:00)
[2017-04-21] MEDS ORDERED: MAGNESIUM SULFATE 1GM 100 ML IV ONE (13:00)
[2017-04-21] MEDS: ANTI-COAG MONITOR BY PHARMACY. MC PRN (13:24)
--- NOTE | 2017-04-21 14:13 | PDOC ---
PROGRESS NOTES Subjective Subjective The patient is extubated and responsive. Objective Objective Vital Signs Date Time Temp Pulse Resp B/P (MAP) Pulse Ox O2 Delivery O2 Flow Rate FiO2 04/21/17 13:00 63 26 124/49 (74) 96 Room Air 04/21/17 12:04 1.0 04/21/17 12:00 97.9 97.9 Intake and Output 04/21/17 07:00 Intake Total 4709.1 ml Output Total 4020 ml Balance 689.1 ml Intake Oral 0 ml IV Total 4709.1 ml Output Urine Total 3820 ml Gastric Drainage Total 200 ml Physical Exam Abdomen: Normal bowel sounds Heart: Regular rate General: mild distress Lungs: Other (mildly decreased breath sounds) Assessment Assessment Problems Medical Problems: (1) STEMI (ST elevation myocardial infarction) Status: Acute 1. VF arrest; on Amio gtt. has stabilized. Patient has been extubated and is responsive. 2. 3V CAD; re-warmed. LVEF preserved. Blood pressure improved. We will discontinue intra-aortic balloon pump today. Upcoming surgical evaluation for possible future bypass surgery. 3. Cardiogenic shock; resolved. Pressors tapered. IABP to be removed. 4. Acute respiratory failure secondary to #1; extubated and responsive. Comment Review of Relevant I have reviewed the following items erna (where applicable) has been applied. Labs Laboratory Tests Test 04/19/17 14:40 04/19/17 16:11 04/19/17 20:25 04/19/17 20:40 White Blood Count 13.1 x10^3/uL (4.0-11.0) Red Blood Count 4.41 x10^6/uL (4.30-5.70) Hemoglobin 15.4 g/dL (13.0-17.5) Hematocrit 45.2 % (39.0-53.0) Mean Corpuscular Volume 102 fL (79-100) Mean Corpuscular Hemoglobin 35 pg (25-35) Mean Corpuscular Hemoglobin Concent 34 g/dL (31-37) Red Cell Distribution Width 14.3 % (11.5-14.5) Platelet Count 98 x10^3/uL (140-400) Prothrombin Time 15.9 SEC (11.7-14.0) Prothromb Time International Ratio 1.4 (0.8-1.1) Activated Partial Thromboplast Time 113 SEC (24-38) Heparin Anti-Xa Act, Unfractionated 0.28 IU/mL (0.30-0.70) 0.11 IU/mL (0.30-0.70) Lactic Acid Level 1.1 mmol/L (0.4-2.0) Sodium Level 142 mmol/L (136-145) 139 mmol/L (136-145) Potassium Level 4.2 mmol/L (3.5-5.1) 3.6 mmol/L (3.5-5.1) Chloride Level 112 mmol/L (98-107) 109 mmol/L (98-107) Carbon Dioxide Level 23 mmol/L (21-32) 22 mmol/L (21-32) Anion Gap 7 (6-14) 8 (6-14) Blood Urea Nitrogen 6 mg/dL (8-26) 6 mg/dL (8-26) Creatinine 0.5 mg/dL (0.7-1.3) 0.4 mg/dL (0.7-1.3) Estimated GFR (Cockcroft-Gault) 164.9 213.3 Glucose Level 105 mg/dL (70-99) 123 mg/dL (70-99) Calcium Level 6.9 mg/dL (8.5-10.1) 7.3 mg/dL (8.5-10.1) Phosphorus Level 3.4 mg/dL (2.6-4.7) 2.8 mg/dL (2.6-4.7) Magnesium Level 1.8 mg/dL (1.8-2.4) 1.8 mg/dL (1.8-2.4) Test 04/20/17 00:00 04/20/17 02:55 04/20/17 07:45 04/20/17 09:00 Sodium Level 140 mmol/L (136-145) Potassium Level 3.7 mmol/L (3.5-5.1) Chloride Level 108 mmol/L (98-107) Carbon Dioxide Level 22 mmol/L (21-32) Anion Gap 10 (6-14) Blood Urea Nitrogen 5 mg/dL (8-26) Creatinine 0.4 mg/dL (0.7-1.3) Estimated GFR (Cockcroft-Gault) 213.3 Glucose Level 119 mg/dL (70-99) Calcium Level 7.3 mg/dL (8.5-10.1) Phosphorus Level 2.6 mg/dL (2.6-4.7) Magnesium Level 1.7 mg/dL (1.8-2.4) Heparin Anti-Xa Act, Unfractionated 0.39 IU/mL (0.30-0.70) 0.40 IU/mL (0.30-0.70) O2 Saturation 99 % (92-99) Arterial Blood pH 7.44 (7.35-7.45) Arterial Blood pCO2 at Patient Temp 33 mmHg (35-46) Arterial Blood pO2 at Patient Temp 171 mmHg (65-108) Arterial Blood HCO3 22 mmol/L (21-28) Arterial Blood Base Excess -1 mmol/L (-3-3) FiO2 40 White Blood Count 13.6 x10^3/uL (4.0-11.0) Red Blood Count 3.67 x10^6/uL (4.30-5.70) Hemoglobin 12.7 g/dL (13.0-17.5) Hematocrit 38.1 % (39.0-53.0) Mean Corpuscular Volume 104 fL (79-100) Mean Corpuscular Hemoglobin 35 pg (25-35) Mean Corpuscular Hemoglobin Concent 33 g/dL (31-37) Red Cell Distribution Width 14.1 % (11.5-14.5) Platelet Count 69 x10^3/uL (140-400) Ionized Calcium 0.98 mmol/L (1.13-1.32) Total Bilirubin 0.3 mg/dL (0.2-1.0) Direct Bilirubin 0.1 mg/dL (0.0-0.2) Aspartate Amino Transf (AST/SGOT) 65 U/L (15-37) Alanine Aminotransferase (ALT/SGPT) 42 U/L (16-63) Alkaline Phosphatase 57 U/L (46-116) Total Protein 4.4 g/dL (6.4-8.2) Albumin 1.8 g/dL (3.4-5.0) Lipase 40 U/L (73-393) Test 04/20/17 09:40 04/21/17 05:40 04/21/17 13:41 O2 Saturation 99 % (92-99) Arterial Blood pH 7.42 (7.35-7.45) Arterial Blood pCO2 at Patient Temp 31 mmHg (35-46) Arterial Blood pO2 at Patient Temp 148 mmHg (65-108) Arterial Blood HCO3 20 mmol/L (21-28) Arterial Blood Base Excess -4 mmol/L (-3-3) FiO2 40 White Blood Count 9.2 x10^3/uL (4.0-11.0) Red Blood Count 3.13 x10^6/uL (4.30-5.70) Hemoglobin 11.2 g/dL (13.0-17.5) Hematocrit 31.9 % (39.0-53.0) Mean Corpuscular Volume 102 fL (79-100) Mean Corpuscular Hemoglobin 36 pg (25-35) Mean Corpuscular Hemoglobin Concent 35 g/dL (31-37) Red Cell Distribution Width 13.8 % (11.5-14.5) Platelet Count 73 x10^3/uL (140-400) Neutrophils (%) (Auto) 84 % (31-73) Lymphocytes (%) (Auto) 8 % (24-48) Monocytes (%) (Auto) 8 % (0-9) Eosinophils (%) (Auto) 0 % (0-3) Basophils (%) (Auto) 0 % (0-3) Neutrophils # (Auto) 7.7 x10^3uL (1.8-7.7) Lymphocytes # (Auto) 0.8 x10^3/uL (1.0-4.8) Monocytes # (Auto) 0.7 x10^3/uL (0.0-1.1) Eosinophils # (Auto) 0.0 x10^3/uL (0.0-0.7) Basophils # (Auto) 0.0 x10^3/uL (0.0-0.2) Heparin Anti-Xa Act, Unfractionated 0.31 IU/mL (0.30-0.70) Sodium Level 141 mmol/L (136-145) Potassium Level 3.0 mmol/L (3.5-5.1) Chloride Level 110 mmol/L (98-107) Carbon Dioxide Level 26 mmol/L (21-32) Anion Gap 5 (6-14) Blood Urea Nitrogen 8 mg/dL (8-26) Creatinine 0.5 mg/dL (0.7-1.3) Estimated GFR (Cockcroft-Gault) 164.9 Glucose Level 104 mg/dL (70-99) Calcium Level 6.8 mg/dL (8.5-10.1) Magnesium Level 1.9 mg/dL (1.8-2.4) Activated Clotting Time 160 sec (92-181) Laboratory Tests Test 04/21/17 05:40 04/21/17 13:41 White Blood Count 9.2 x10^3/uL (4.0-11.0) Red Blood Count 3.13 x10^6/uL (4.30-5.70) Hemoglobin 11.2 g/dL (13.0-17.5) Hematocrit 31.9 % (39.0-53.0) Mean Corpuscular Volume 102 fL (79-100) Mean Corpuscular Hemoglobin 36 pg (25-35) Mean Corpuscular Hemoglobin Concent 35 g/dL (31-37) Red Cell Distribution Width 13.8 % (11.5-14.5) Platelet Count 73 x10^3/uL (140-400) Neutrophils (%) (Auto) 84 % (31-73) Lymphocytes (%) (Auto) 8 % (24-48) Monocytes (%) (Auto) 8 % (0-9) Eosinophils (%) (Auto) 0 % (0-3) Basophils (%) (Auto) 0 % (0-3) Neutrophils # (Auto) 7.7 x10^3uL (1.8-7.7) Lymphocytes # (Auto) 0.8 x10^3/uL (1.0-4.8) Monocytes # (Auto) 0.7 x10^3/uL (0.0-1.1) Eosinophils # (Auto) 0.0 x10^3/uL (0.0-0.7) Basophils # (Auto) 0.0 x10^3/uL (0.0-0.2) Heparin Anti-Xa Act, Unfractionated 0.31 IU/mL (0.30-0.70) Sodium Level 141 mmol/L (136-145) Potassium Level 3.0 mmol/L (3.5-5.1) Chloride Level 110 mmol/L (98-107) Carbon Dioxide Level 26 mmol/L (21-32) Anion Gap 5 (6-14) Blood Urea Nitrogen 8 mg/dL (8-26) Creatinine 0.5 mg/dL (0.7-1.3) Estimated GFR (Cockcroft-Gault) 164.9 Glucose Level 104 mg/dL (70-99) Calcium Level 6.8 mg/dL (8.5-10.1) Magnesium Level 1.9 mg/dL (1.8-2.4) Activated Clotting Time 160 sec (92-181) Microbiology 04/17/17 Blood Culture - Preliminary, Resulted NO GROWTH AFTER 3 DAYS Medications Current Medications Heparin Sodium (Porcine) (Heparin Sodium) 10,000 unit STK-MED ONCE .ROUTE ; Start 04/17/17 at 19:03; Stop 04/17/17 at 19:04; Status DC Heparin Sodium (Porcine) (Heparin Sodium) 4,000 unit 1X ONCE IV Last administered on 04/17/17 19:05; Start 04/17/17 at 19:15; Stop 04/17/17 at 19:49; Status DC Sodium Chloride 1,000 ml @ 1,000 mls/hr Q1H IV Last administered on 04/17/17 19:07; Start 04/17/17 at 19:07; Stop 04/17/17 at 20:06; Status DC Midazolam HCl 100 ml @ As Directed STK-MED ONCE IV ; Start 04/17/17 at 19:15; Stop 04/17/17 at 19:16; Status DC Etomidate (Amidate) 20 mg STK-MED ONCE IV ; Start 04/17/17 at 19:15; Stop at 19:16; Status DC Succinylcholine Chloride (Anectine) 200 mg STK-MED ONCE .ROUTE ; Start 04/17/17 at 19:16; Stop 04/17/17 at 19:17; Status DC Heparin Sodium/ Sodium Chloride 1,500 ml @ As Directed STK-MED ONCE .ROUTE ; Start 04/17/17 at 19:24; Stop 04/17/17 at 19:25; Status DC Lidocaine HCl 20 ml STK-MED ONCE .ROUTE ; Start 04/17/17 at 19:24; Stop 04/17/17 at 19:25; Status DC Iodixanol (Visipaque 320) 100 ml STK-MED ONCE .ROUTE ; Start 04/17/17 at 19:24; Stop 04/17/17 at 19:25; Status DC Dopamine HCl/ Dextrose 250 ml @ 0 mls/hr CONT PRN IV SEE I/O RECORD Last administered on 04/17/17 19:32; Start 04/17/17 at 19:30; Stop 04/17/17 at 20:54; Status DC Dopamine HCl/ Dextrose 250 ml @ As Directed STK-MED ONCE IV ; Start 04/17/17 at 19:30; Stop 04/17/17 at 19:31; Status DC Ondansetron HCl (Zofran) 4 mg PRN Q8HRS PRN IV NAUSEA/VOMITING; Start 04/17/17 at 19:30; Stop 04/18/17 at 19:29; Status DC Sodium Chloride 1,000 ml @ 100 mls/hr Q10H IV Last administered on 04/18/17 12 :35; Start 04/17/17 at 19:30; Stop 04/18/17 at 19:29; Status DC Acetaminophen (Tylenol) 650 mg PRN Q4HRS PRN PO FEVER; Start 04/17/17 at 19:30; Stop 04/18/17 at 19:29; Status DC Heparin Sodium (Porcine) (Heparin Sodium) 10,000 unit STK-MED ONCE .ROUTE ; Start 04/17/17 at 20:16; Stop 04/17/17 at 20:17; Status DC Tirofiban/Sodium Chloride 0 ml @ As Directed STK-MED ONCE IV ; Start 04/17/17 at 20:16; Stop 04/17/17 at 20:17; Status DC Famotidine (Pepcid) 20 mg QHS IVP Last administered on 04/17/17 22:30; Start at 21:00; Stop 04/19/17 at 08:05; Status DC Etomidate (Amidate) 20 mg 1X ONCE IV Last administered on 04/17/17 19:00; Start 04/17/17 at 20:30; Stop 04/17/17 at 21:05; Status DC Succinylcholine Chloride (Anectine) 100 mg 1X ONCE IV Last administered on 04/17 19:00; Start 04/17/17 at 20:30; Stop 04/17/17 at 21:07; Status DC Lidocaine HCl/ Dextrose 500 ml @ 0 mls/hr 1X ONCE IV Last administered on 18:55; Start 04/17/17 at 20:30; Stop 04/17/17 at 21:08; Status DC Dopamine HCl/ Dextrose 250 ml @ 0 mls/hr CONT PRN IV SEE I/O RECORD Last administered on 04/20/17 09:36; Start 04/17/17 at 20:30 Heparin Sodium/ Dextrose 500 ml @ As Directed STK-MED ONCE IV ; Start 04/17/17 at 20:43; Stop 04/17/17 at 20:44; Status DC Heparin Sodium/ Dextrose 500 ml @ 0 mls/hr CONT PRN IV SEE I/O RECORD Last administered on 04/19/17 01:48; Start 04/17/17 at 20:45; Stop 04/19/17 at 16:41; Status DC Midazolam HCl (Versed) 5 mg 1X ONCE IV Last administered on 04/17/17 19:17; Start 04/17/17 at 21:00; Stop 04/17/17 at 21:07; Status DC Heparin Sodium (Porcine) (Heparin Sodium) 2,000 unit 1X ONCE IV Last administered on 04/17/17 20:59; Start 04/17/17 at 21:00; Stop 04/17/17 at 21:06; Status DC Iodixanol (Visipaque 320) 134 ml 1X ONCE IART Last administered on 04/17/17 20 :58; Start 04/17/17 at 21:00; Stop 04/17/17 at 21:04; Status DC Lidocaine HCl 20 ml 1X ONCE IJ Last administered on 04/17/17 20:58; Start 04/17 at 21:00; Stop 04/17/17 at 21:08; Status DC Fentanyl Citrate 30 ml @ As Directed STK-MED ONCE IV ; Start 04/17/17 at 21:09; Stop 04/17/17 at 21:10; Status DC Sodium Chloride 1,000 ml @ 1,000 mls/hr Q1H IV Last administered on 04/17/17 23:30; Start 04/17/17 at 21:30; Stop 04/18/17 at 03:42; Status DC Fentanyl Citrate (Fentanyl 2ml Vial) 25 mcg PRN Q30MIN PRN IV SED; Start at 21:30 Lorazepam (Ativan) 1 mg PRN Q30MIN PRN IV SEDATION Last administered on 20:49; Start 04/17/17 at 21:30; Stop 04/20/17 at 21:45; Status DC Fentanyl Citrate 30 ml @ 2.5 mls/hr CONT PRN PRN IV IVF Last administered on 13:30; Start 04/17/17 at 21:30; Stop 04/21/17 at 11:35; Status DC Propofol 100 ml @ 0 mls/hr CONT PRN IV SEE I/O RECORD Last administered on 09:26; Start 04/17/17 at 21:30; Stop 04/21/17 at 11:35; Status DC Vecuronium Biggers (Norcuron Bolus) DOSE AT 0.1 mg/kg PRN Q30MIN PRN IV SHIVERING Last administered on 04/18/17 16:00; Start 04/17/17 at 21:30; Stop 04/21 at 11:35; Status DC Meperidine HCl (Demerol) 12.5 mg PRN Q30MIN PRN IV SHIVERING Last administered on 04/18/17 04:17; Start 04/17/17 at 21:30; Stop 04/18/17 at 04:18; Status DC Multi-Ingred Cream/Lotion/Oil/ Oint (Artificial Tears Eye Oint) 1 balaji PRN Q6HRS PRN OU 0.5 INCH FOR DRY EYE Last administered on 04/18/17 23:57; Start at 21:30 Famotidine (Pepcid) 20 mg BID IVP Last administered on 04/21/17 09:00; Start at 09:00 Aspirin (Aspirin) 300 mg DAILY VT Last administered on 04/21/17 09:00; Start at 09:00 Sodium Chloride (Normal Saline Flush) 3 ml QSHIFT PRN IV AFTER MEDS AND BLOOD DRAWS; Start 04/17/17 at 21:30 Acetaminophen (Tylenol) 650 mg Q6HRS NG ; Start 04/18/17 at 00:00; Stop 04/18/17 at 23:59; Status DC Acetaminophen (Acetaminophen Supp) 650 mg PRN Q6HRS PRN VT MILD PAIN / TEMP Last administered on 04/19/17 12:20; Start 04/18/17 at 21:30 Acetaminophen (Tylenol) 650 mg PRN Q6HRS PRN NG MILD PAIN / TEMP; Start at 21:30 Info 1 ea DAILY PRN MC PER PROTOCOL; Start 04/19/17 at 21:30 Heparin Sodium/ Dextrose 500 ml @ 0 mls/hr CONT PRN IV SEE I/O RECORD; Start at 21:30; Stop 04/19/17 at 07:26; Status DC Heparin Sodium (Porcine) (Heparin Sodium) 1,450 unit PRN Q6HRS PRN IV FOR UFH LEVEL LESS THAN 0.2; Start 04/17/17 at 21:30; Stop 04/19/17 at 16:41; Status DC Sodium Chloride 1,000 ml @ 60 mls/hr [id number] IV Last administered on 04/19/17 10:21; Start 04/17/17 at 21:45; Stop 04/19/17 at 18:15; Status DC Midazolam HCl 100 ml @ 0 mls/hr CONT PRN IV SEE I/O RECORD; Start 04/17/17 at 22 :00; Stop 04/21/17 at 11:35; Status DC Sodium Bicarbonate 100 meq 1X ONCE IV Last administered on 04/18/17 02:02; Start 04/18/17 at 00:00; Stop 04/18/17 at 00:01; Status DC Amiodarone HCl 900 mg/Dextrose 518 ml @ 0 mls/hr 1X ONCE IV Last administered on 04/18/17 08:00; Start 04/18/17 at 08:00; Stop 04/18/17 at 08:01; Status DC Pneumococcal Polyvalent Vaccine (Do NOT chart on this placeholder) 1 each PRN DAILY PRN MC UNABLE TO RESPOND; Start 04/18/17 at 08:45; Status Cancel Amiodarone HCl 900 mg/Dextrose 518 ml @ 34.53 mls/ hr CONT PRN IV SEE I/O RECORD; Start 04/18/17 at 09:45; Stop 04/20/17 at 02:29; Status DC Potassium Chloride 50 ml @ 50 mls/hr 1X ONCE IV ; Start 04/18/17 at 10:30; Stop 04/18/17 at 10:30; Status DC Potassium Chloride 100 ml @ 100 mls/hr Q1H IV Last administered on 04/18/17 11 :39; Start 04/18/17 at 10:30; Stop 04/18/17 at 12:29; Status DC Ephedrine Sulfate 50 mg STK-MED ONCE IV ; Start 04/18/17 at 14:56; Stop 04/18/17 at 14:57; Status DC Potassium Chloride 50 ml @ 50 mls/hr Q1H IV Last administered on 04/18/17 19:23 ; Start 04/18/17 at 17:30; Stop 04/18/17 at 20:29; Status DC Magnesium Sulfate/ Dextrose 100 ml @ 100 mls/hr 1X ONCE IV Last administered on 04/18/17 17:10; Start 04/18/17 at 17:30; Stop 04/18/17 at 18:29; Status DC Calcium Gluconate (Calcium Gluconate) 1,000 mg 1X ONCE IV Last administered on 04/18/17 17:08; Start 04/18/17 at 17:15; Stop 04/18/17 at 17:16; Status DC Epinephrine HCl (EPINEPHrine SYRINGE) 1 mg STK-MED ONCE .ROUTE ; Start 04/17/17 at 17:03; Stop 04/18/17 at 17:03; Status DC Info (Anti-Coagulation Monitoring By Pharmacy) 1 each PRN DAILY PRN MC SEE COMMENTS Last administered on 04/21/17 13:24; Start 04/19/17 at 08:15 Chlorhexidine Gluconate (Peridex) 15 ml BID MM Last administered on 04/20/17 21 :47; Start 04/19/17 at 09:00; Stop 04/21/17 at 11:35; Status DC Amiodarone HCl 450 mg/Dextrose 259 ml @ 17.26 mls/ hr CONT PRN IV SEE I/O RECORD Last administered on 04/21/17 08:24; Start 04/19/17 at 13:00 Midazolam HCl (Versed) 5 mg STK-MED ONCE .ROUTE ; Start 04/19/17 at 16:21; Stop 04/19/17 at 16:22; Status DC Midazolam HCl (Versed) 1 mg PRN Q2HR PRN IV SEDATION FOR VENT; Start 04/19/17 at 16:30; Stop 04/21/17 at 11:35; Status DC Fentanyl Citrate (Fentanyl 2ml Vial) 25 mcg PRN Q2HR PRN IV PAIN; Start at 16:30 Fentanyl Citrate (Fentanyl 2ml Vial) 50 mcg PRN Q2HR PRN IV PAIN Last administered on 04/21/17 03:39; Start 04/19/17 at 16:30 Midazolam HCl (Versed) 2 mg PRN Q2HR PRN IV SEDATION FOR VENT Last administered on 04/20/17 07:24; Start 04/19/17 at 16:30 Heparin Sodium/ Dextrose 500 ml @ 0 mls/hr CONT PRN IV SEE I/O RECORD Last administered on 04/20/17 07:26; Start 04/19/17 at 16:45 Heparin Sodium (Porcine) (Heparin Sodium) 1,450 unit PRN Q6HRS PRN IV FOR UFH LEVEL LESS THAN 0.2 Last administered on 04/19/17 20:56; Start 04/19/17 at 16:45 Midazolam HCl (Versed) 2 mg 1X ONCE IV Last administered on 04/19/17 16:45; Start 04/19/17 at 16:45; Stop 04/19/17 at 16:46; Status DC Sodium Chloride 1,000 ml @ 100 mls/hr Q10H IV Last administered on 04/21/17 03 :38; Start 04/19/17 at 18:15; Stop 04/21/17 at 11:35; Status DC Magnesium Sulfate/ Dextrose 50 ml @ 25 mls/hr 1X ONCE IV Last administered on 04/20/17 12:22; Start 04/20/17 at 11:45; Stop 04/20/17 at 13:44; Status DC Haloperidol Lactate (Haldol) 5 mg 1X ONCE IVP ; Start 04/20/17 at 22:00; Stop at 22:01; Status DC Lorazepam (Ativan) 1 mg PRN Q3HRS PRN IV ANXIETY / AGITATION Last administered on 04/21/17 12:58; Start 04/20/17 at 21:30 Potassium Chloride 50 ml @ 25 mls/hr Q2H IV Last administered on 7/6/17at 11:31 ; Start 04/21/17 at 07:00; Stop 04/21/17 at 14:59 Pneumococcal Polyvalent Vaccine (Pneumovax 23) 0.5 ml ONCE ONCE VAX IM ; Start 04/22/17 at 09:00; Stop 04/22/17 at 09:01 Magnesium Sulfate/ Dextrose 100 ml @ 100 mls/hr 1X ONCE IV ; Start 04/21/17 at 13:00; Stop 04/21/17 at 13:59; Status Cancel Magnesium Sulfate/ Dextrose 100 ml @ 25 mls/hr 1X ONCE IV ; Start 04/21/17 at 13:00; Stop 04/21/17 at 16:59; Status Cancel Magnesium Sulfate/ Dextrose 50 ml @ 25 mls/hr 1X ONCE IV ; Start 04/21/17 at 13: 00; Stop 04/21/17 at 14:59 Active Scripts Active Reported [No home meds] Vitals/I & O Vital Sign - Last 24 Hours 04/20/17 04/20/17 04/20/17 04/20/17 15:00 16:00 16:00 16:00 Temp 98.1 98.1 Pulse 63 87 64 Resp 21 18 B/P (MAP) 92/52 (65) 104/50 (68) 110/41 (64) Pulse Ox 98 98 O2 Delivery Nasal Cannula Nasal Cannula Nasal Cannula O2 Flow Rate 2.0 2.0 2.0 04/20/17 04/20/17 04/20/17 04/20/17 17:00 18:00 19:00 19:41 Pulse 55 60 60 Resp 21 24 16 B/P (MAP) 110/52 (71) 96/49 (65) 120/71 (87) Pulse Ox 98 95 98 O2 Delivery Nasal Cannula Nasal Cannula Nasal Cannula Nasal Cannula O2 Flow Rate 2.0 2.0 2.0 2.0 04/20/17 04/20/17 04/20/17 04/20/17 20:00 20:00 21:00 21:15 Temp 98.0 98.0 Pulse 58 58 81 Resp 22 27 22 B/P (MAP) 117/71 (86) 117/71 (86) 136/64 (88) Pulse Ox 98 94 98 O2 Delivery Nasal Cannula Nasal Cannula Nasal Cannula O2 Flow Rate 2.0 2.0 2.0 04/20/17 04/20/17 04/20/17 04/20/17 22:00 22:59 23:27 23:53 Pulse 64 62 Resp 16 24 26 B/P (MAP) 100/66 (77) 110/68 (82) Pulse Ox 94 95 94 O2 Delivery Nasal Cannula Nasal Cannula Nasal Cannula Nasal Cannula O2 Flow Rate 2.0 2.0 2.0 2.0 04/20/17 04/20/17 04/21/17 04/21/17 23:54 23:57 01:00 02:00 Temp 97.8 97.8 Pulse 57 57 54 60 Resp 20 17 20 B/P (MAP) 112/71 (85) 117/58 (77) 105/63 (77) 121/61 (81) Pulse Ox 96 96 94 O2 Delivery Nasal Cannula Nasal Cannula Nasal Cannula O2 Flow Rate 2.0 2.0 2.0 04/21/17 04/21/17 04/21/17 04/21/17 03:00 03:39 04:00 04:00 Temp 97.1 97.1 Pulse 70 60 60 Resp 28 30 8 B/P (MAP) 137/79 (98) 114/70 (85) 114/70 (85) Pulse Ox 96 95 95 O2 Delivery Nasal Cannula Nasal Cannula Nasal Cannula O2 Flow Rate 2.0 2.0 2.0 04/21/17 04/21/17 04/21/17 04/21/17 04:00 04:15 05:00 05:55 Pulse 56 52 Resp 18 23 25 B/P (MAP) 107/67 (80) 114/43 (66) Pulse Ox 95 95 97 O2 Delivery Nasal Cannula Nasal Cannula Nasal Cannula Nasal Cannula O2 Flow Rate 2.0 2.0 2.0 2.0 04/21/17 04/21/17 04/21/17 04/21/17 07:00 08:00 08:00 08:00 Temp 97.4 97.4 Pulse 68 74 68 Resp 22 27 B/P (MAP) 123/47 (72) 129/45 (73) Pulse Ox 97 97 O2 Delivery Nasal Cannula Nasal Cannula Nasal Cannula O2 Flow Rate 3.0 1.0 1.0 04/21/17 04/21/17 04/21/17 04/21/17 09:00 10:04 11:03 12:00 Temp 97.9 97.9 Pulse 60 63 62 Resp 22 21 23 12 B/P (MAP) 132/45 (74) 130/51 (77) 123/54 (77) 112/50 (70) Pulse Ox 100 100 100 98 O2 Delivery Nasal Cannula Nasal Cannula Room Air Room Air O2 Flow Rate 1.0 1.0 04/21/17 04/21/17 12:04 13:00 Pulse 63 Resp 26 B/P (MAP) 124/49 (74) Pulse Ox 96 O2 Delivery Nasal Cannula Room Air O2 Flow Rate 1.0 Intake and Output 04/20/17 04/20/17 04/21/17 15:00 23:00 07:00 Intake Total 50 ml 2306.1 ml 2353 ml Output Total 1455 ml 915 ml 1650 ml Balance -1405 ml 1391.1 ml 703 ml Nutrition Consultation Dietary Evaluation: Comments: REC Diet per CUT [employer] tube feedings if unable to adv diet Expected Outcomes/Goals: to meet > 50% est nutr needs Interpretation of weight loss: >20% in 1 year Malnutrition Findings: Food and Nutrition Intake (Sev: <50% est energy req 5days Body Fat Depletion (Non Severe: Mild Depletion Weight Status: Underweight LOVE MARIE MD Apr 21, 2017 14:13
--- NOTE | 2017-04-21 14:38 | PDOC ---
PULMONARY PROGRESS NOTES Subjective EXTUBATED 04/20 STATES EARLY THIS AM VERY RESPONSIVE Vitals Vital Signs Date Time Temp Pulse Resp B/P (MAP) Pulse Ox O2 Delivery O2 Flow Rate FiO2 04/21/17 14:00 63 24 122/49 (73) 96 Room Air 04/21/17 12:04 1.0 04/21/17 12:00 97.9 97.9 General: Alert Lungs: Crackles Cardiovascular: S1, S2 Abdomen: Soft, Non-tender Neuro Exam: Alert Extremities: Other (EDEMA) Skin: Warm Labs Laboratory Tests Test 04/19/17 14:40 04/19/17 16:11 04/19/17 20:25 04/19/17 20:40 White Blood Count 13.1 x10^3/uL (4.0-11.0) Red Blood Count 4.41 x10^6/uL (4.30-5.70) Hemoglobin 15.4 g/dL (13.0-17.5) Hematocrit 45.2 % (39.0-53.0) Mean Corpuscular Volume 102 fL (79-100) Mean Corpuscular Hemoglobin 35 pg (25-35) Mean Corpuscular Hemoglobin Concent 34 g/dL (31-37) Red Cell Distribution Width 14.3 % (11.5-14.5) Platelet Count 98 x10^3/uL (140-400) Prothrombin Time 15.9 SEC (11.7-14.0) Prothromb Time International Ratio 1.4 (0.8-1.1) Activated Partial Thromboplast Time 113 SEC (24-38) Heparin Anti-Xa Act, Unfractionated 0.28 IU/mL (0.30-0.70) 0.11 IU/mL (0.30-0.70) Lactic Acid Level 1.1 mmol/L (0.4-2.0) Sodium Level 142 mmol/L (136-145) 139 mmol/L (136-145) Potassium Level 4.2 mmol/L (3.5-5.1) 3.6 mmol/L (3.5-5.1) Chloride Level 112 mmol/L (98-107) 109 mmol/L (98-107) Carbon Dioxide Level 23 mmol/L (21-32) 22 mmol/L (21-32) Anion Gap 7 (6-14) 8 (6-14) Blood Urea Nitrogen 6 mg/dL (8-26) 6 mg/dL (8-26) Creatinine 0.5 mg/dL (0.7-1.3) 0.4 mg/dL (0.7-1.3) Estimated GFR (Cockcroft-Gault) 164.9 213.3 Glucose Level 105 mg/dL (70-99) 123 mg/dL (70-99) Calcium Level 6.9 mg/dL (8.5-10.1) 7.3 mg/dL (8.5-10.1) Phosphorus Level 3.4 mg/dL (2.6-4.7) 2.8 mg/dL (2.6-4.7) Magnesium Level 1.8 mg/dL (1.8-2.4) 1.8 mg/dL (1.8-2.4) Test 04/20/17 00:00 04/20/17 02:55 04/20/17 07:45 04/20/17 09:00 Sodium Level 140 mmol/L (136-145) Potassium Level 3.7 mmol/L (3.5-5.1) Chloride Level 108 mmol/L (98-107) Carbon Dioxide Level 22 mmol/L (21-32) Anion Gap 10 (6-14) Blood Urea Nitrogen 5 mg/dL (8-26) Creatinine 0.4 mg/dL (0.7-1.3) Estimated GFR (Cockcroft-Gault) 213.3 Glucose Level 119 mg/dL (70-99) Calcium Level 7.3 mg/dL (8.5-10.1) Phosphorus Level 2.6 mg/dL (2.6-4.7) Magnesium Level 1.7 mg/dL (1.8-2.4) Heparin Anti-Xa Act, Unfractionated 0.39 IU/mL (0.30-0.70) 0.40 IU/mL (0.30-0.70) O2 Saturation 99 % (92-99) Arterial Blood pH 7.44 (7.35-7.45) Arterial Blood pCO2 at Patient Temp 33 mmHg (35-46) Arterial Blood pO2 at Patient Temp 171 mmHg (65-108) Arterial Blood HCO3 22 mmol/L (21-28) Arterial Blood Base Excess -1 mmol/L (-3-3) FiO2 40 White Blood Count 13.6 x10^3/uL (4.0-11.0) Red Blood Count 3.67 x10^6/uL (4.30-5.70) Hemoglobin 12.7 g/dL (13.0-17.5) Hematocrit 38.1 % (39.0-53.0) Mean Corpuscular Volume 104 fL (79-100) Mean Corpuscular Hemoglobin 35 pg (25-35) Mean Corpuscular Hemoglobin Concent 33 g/dL (31-37) Red Cell Distribution Width 14.1 % (11.5-14.5) Platelet Count 69 x10^3/uL (140-400) Ionized Calcium 0.98 mmol/L (1.13-1.32) Total Bilirubin 0.3 mg/dL (0.2-1.0) Direct Bilirubin 0.1 mg/dL (0.0-0.2) Aspartate Amino Transf (AST/SGOT) 65 U/L (15-37) Alanine Aminotransferase (ALT/SGPT) 42 U/L (16-63) Alkaline Phosphatase 57 U/L (46-116) Total Protein 4.4 g/dL (6.4-8.2) Albumin 1.8 g/dL (3.4-5.0) Lipase 40 U/L (73-393) Test 04/20/17 09:40 04/21/17 05:40 04/21/17 13:41 O2 Saturation 99 % (92-99) Arterial Blood pH 7.42 (7.35-7.45) Arterial Blood pCO2 at Patient Temp 31 mmHg (35-46) Arterial Blood pO2 at Patient Temp 148 mmHg (65-108) Arterial Blood HCO3 20 mmol/L (21-28) Arterial Blood Base Excess -4 mmol/L (-3-3) FiO2 40 White Blood Count 9.2 x10^3/uL (4.0-11.0) Red Blood Count 3.13 x10^6/uL (4.30-5.70) Hemoglobin 11.2 g/dL (13.0-17.5) Hematocrit 31.9 % (39.0-53.0) Mean Corpuscular Volume 102 fL (79-100) Mean Corpuscular Hemoglobin 36 pg (25-35) Mean Corpuscular Hemoglobin Concent 35 g/dL (31-37) Red Cell Distribution Width 13.8 % (11.5-14.5) Platelet Count 73 x10^3/uL (140-400) Neutrophils (%) (Auto) 84 % (31-73) Lymphocytes (%) (Auto) 8 % (24-48) Monocytes (%) (Auto) 8 % (0-9) Eosinophils (%) (Auto) 0 % (0-3) Basophils (%) (Auto) 0 % (0-3) Neutrophils # (Auto) 7.7 x10^3uL (1.8-7.7) Lymphocytes # (Auto) 0.8 x10^3/uL (1.0-4.8) Monocytes # (Auto) 0.7 x10^3/uL (0.0-1.1) Eosinophils # (Auto) 0.0 x10^3/uL (0.0-0.7) Basophils # (Auto) 0.0 x10^3/uL (0.0-0.2) Heparin Anti-Xa Act, Unfractionated 0.31 IU/mL (0.30-0.70) Sodium Level 141 mmol/L (136-145) Potassium Level 3.0 mmol/L (3.5-5.1) Chloride Level 110 mmol/L (98-107) Carbon Dioxide Level 26 mmol/L (21-32) Anion Gap 5 (6-14) Blood Urea Nitrogen 8 mg/dL (8-26) Creatinine 0.5 mg/dL (0.7-1.3) Estimated GFR (Cockcroft-Gault) 164.9 Glucose Level 104 mg/dL (70-99) Calcium Level 6.8 mg/dL (8.5-10.1) Magnesium Level 1.9 mg/dL (1.8-2.4) Activated Clotting Time 160 sec (92-181) Laboratory Tests Test 04/21/17 05:40 04/21/17 13:41 White Blood Count 9.2 x10^3/uL (4.0-11.0) Red Blood Count 3.13 x10^6/uL (4.30-5.70) Hemoglobin 11.2 g/dL (13.0-17.5) Hematocrit 31.9 % (39.0-53.0) Mean Corpuscular Volume 102 fL (79-100) Mean Corpuscular Hemoglobin 36 pg (25-35) Mean Corpuscular Hemoglobin Concent 35 g/dL (31-37) Red Cell Distribution Width 13.8 % (11.5-14.5) Platelet Count 73 x10^3/uL (140-400) Neutrophils (%) (Auto) 84 % (31-73) Lymphocytes (%) (Auto) 8 % (24-48) Monocytes (%) (Auto) 8 % (0-9) Eosinophils (%) (Auto) 0 % (0-3) Basophils (%) (Auto) 0 % (0-3) Neutrophils # (Auto) 7.7 x10^3uL (1.8-7.7) Lymphocytes # (Auto) 0.8 x10^3/uL (1.0-4.8) Monocytes # (Auto) 0.7 x10^3/uL (0.0-1.1) Eosinophils # (Auto) 0.0 x10^3/uL (0.0-0.7) Basophils # (Auto) 0.0 x10^3/uL (0.0-0.2) Heparin Anti-Xa Act, Unfractionated 0.31 IU/mL (0.30-0.70) Sodium Level 141 mmol/L (136-145) Potassium Level 3.0 mmol/L (3.5-5.1) Chloride Level 110 mmol/L (98-107) Carbon Dioxide Level 26 mmol/L (21-32) Anion Gap 5 (6-14) Blood Urea Nitrogen 8 mg/dL (8-26) Creatinine 0.5 mg/dL (0.7-1.3) Estimated GFR (Cockcroft-Gault) 164.9 Glucose Level 104 mg/dL (70-99) Calcium Level 6.8 mg/dL (8.5-10.1) Magnesium Level 1.9 mg/dL (1.8-2.4) Activated Clotting Time 160 sec (92-181) Medications Active Scripts Medications Dose Route/Sig Max Daily Dose Days Date Category [No home meds] 04/18/17 Reported Impression . ACUTE RESPIRATORY FAILURE SEC TO CARDIAC ARREST VF/DEFIBRILLATED IN FIELD CAD PER CARD HYPOKALEMIA POSSIBLE ANOXIC BRAIN INJURY CARDIOGENIC SHOCK Brief cath note. Initial AO pressure 98/58, post IABP Ao 136/78 Coronaries Left main. 45-50% lesion. LAD. Mid 95% lesion. Distal collaterals to the RCA. LCX. Proximal 80% lesion, OM1 85% lesion. RCA. Proximal chronic occlusion with distal collaterals from the RCA and LAD. No LV gram. AO root and abd. aorta without significant lesions. IABP placed from right femoral access without complications. Conclusions. 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 IABP placed with significant improvement in BP. Will consider for CABG. The patient remains on a ventilator. Discussed with the patients family. Full report to follow. Plan . BALLON PUMP TO BE D/C OFF 02 RESP STATUS IS COMPENSATED FOLLOW CARD INPUT POSSIBLE CABG IN FUTURE D/C VERSED AND FENTANYL PRESSORS PER APRIL ALARCON MD Apr 21, 2017 14:38
[2017-04-21] MEDS ORDERED: MIDAZOLAM HCL/PF 5 MG/5 ML VIAL. ONE (17:29)
[2017-04-21 18:25] LABS: MAGNESIUM 2.3 mg/dL (1.8-2.4); POTASSIUM 3.9 mmol/L (3.5-5.1)
[2017-04-21] MEDS ORDERED: MIDAZOLAM HCL/PF 5 MG/5 ML VIAL. IV ONE (19:15)
[2017-04-22] VITALS (20 sets, daily range): BP systolic 100–139; BP diastolic 44–82
--- NOTE | 2017-04-22 00:09 | PDOC ---
Provider Note Provider Note Asked by Dr. Valdivia to remove IABP. IABP removed and access site closed with an Angioseal device. No acute complications. Right venous sheath removed and manual pressure held with good hemostasis. PAN BETH MD Apr 22, 2017 00:09
[2017-04-22] MEDS: IV NORMAL SALINE 1000ML BAG 1,000 ML IV SCH ×2 (00:11→09:36)
[2017-04-22] MEDS: fentaNYL PF VIAL 100 MCG/2 ML VIAL IV PRN (02:56)
--- NOTE | 2017-04-22 08:03 | RAD ---
Portable chest, 04/22/2017: History: Respiratory failure Comparison is made to yesterday's study. The heart size is unchanged. There are moderate bilateral pulmonary infiltrates partially obscuring the underlying pulmonary vascularity. These infiltrates have worsened. There is a persistent dense retrocardiac opacity in the left lower chest. The lateral costophrenic angles are blunted suggesting a component of pleural fluid. IMPRESSION: Further interval worsening of the moderate bilateral pulmonary infiltrates most compatible with pulmonary edema.
[2017-04-22] MEDS ORDERED: PNEUMOC CONJ VACC 23-VALENT 0.5 ML VIAL. VAX IM ONE (09:00)
--- NOTE | 2017-04-22 11:21 | PDOC ---
PROGRESS NOTES Chief Complaint Chief Complaint 1. Post code 2. cardiac arrest, vifb, 2/2 acute UT likely, possible STEMI 3. ACUTE resp failure with cardiac arrest 4. hypokalemia 5. shock ,cardiogenic likely 6. leukocytosis, reactive 7. AMS, from cardiac arrest 8. Multivessel disease including left main History of Present Illness History of Present Illness Patient was seen in the ICU. Patient was sitting in chair. Patient is opening eyes spontaneously and is responding to speech and tracking objects with eyes. Patient is seen at bedside with loved ones Vitals Vitals Vital Signs Date Time Temp Pulse Resp B/P (MAP) Pulse Ox O2 Delivery O2 Flow Rate FiO2 04/22/17 09:00 61 22 138/79 (98) 97 Room Air 04/22/17 07:00 98.1 98.1 04/22/17 06:00 1.0 Physical Exam General: mild distress Heart: Regular rate Lungs: Crackles Abdomen: Normal bowel sounds Extremities: No edema, Other (1+ left DP and right DP by Doppler) Skin: No rashes Labs LABS Laboratory Tests Test 04/21/17 13:41 04/21/17 18:10 04/22/17 06:00 Activated Clotting Time 160 sec (92-181) Potassium Level 3.9 mmol/L (3.5-5.1) Magnesium Level 2.3 mg/dL (1.8-2.4) Heparin Anti-Xa Act, Unfractionated < 0.10 IU/mL (0.30-0.70) Review of Systems Review of Systems Patient shows no acute distress; remains nonverbal. Does not appear to have chest pain, n/v. Assessment and Plan Assessmemt and Plan Assessment: 1. Post code 2. cardiac arrest, vifb, 2/2 acute UT likely, possible STEMI 3. ACUTE resp failure with cardiac arrest 4. hypokalemia 5. shock ,cardiogenic likely 6. leukocytosis, reactive 7. AMS, from cardiac arrest 8. Multivessel disease including left main Plan: 1 Continuing the patient's ICU care [address] and monitoring urine output 3 DVT and GI prophylaxis 4 Continuing to monitor potassium - replacement this morning for K+ of 3.0 5 Appreciate subspecialty input and assistance 6 Discussed plan with nursing 7 Balloon pump discontinued 8 Cards following - CABG likely next week 9 Neuro consulted regarding AMS 10 Procal for nutrition - Normal saline stopped Total time 31 minutes Problems: Comment Review of Relevant I have reviewed the following items erna (where applicable) has been applied. Labs Laboratory Tests Test 04/21/17 05:40 04/21/17 13:41 04/21/17 18:10 04/22/17 06:00 White Blood Count 9.2 x10^3/uL (4.0-11.0) Red Blood Count 3.13 x10^6/uL (4.30-5.70) Hemoglobin 11.2 g/dL (13.0-17.5) Hematocrit 31.9 % (39.0-53.0) Mean Corpuscular Volume 102 fL (79-100) Mean Corpuscular Hemoglobin 36 pg (25-35) Mean Corpuscular Hemoglobin Concent 35 g/dL (31-37) Red Cell Distribution Width 13.8 % (11.5-14.5) Platelet Count 73 x10^3/uL (140-400) Neutrophils (%) (Auto) 84 % (31-73) Lymphocytes (%) (Auto) 8 % (24-48) Monocytes (%) (Auto) 8 % (0-9) Eosinophils (%) (Auto) 0 % (0-3) Basophils (%) (Auto) 0 % (0-3) Neutrophils # (Auto) 7.7 x10^3uL (1.8-7.7) Lymphocytes # (Auto) 0.8 x10^3/uL (1.0-4.8) Monocytes # (Auto) 0.7 x10^3/uL (0.0-1.1) Eosinophils # (Auto) 0.0 x10^3/uL (0.0-0.7) Basophils # (Auto) 0.0 x10^3/uL (0.0-0.2) Heparin Anti-Xa Act, Unfractionated 0.31 IU/mL (0.30-0.70) < 0.10 IU/mL (0.30-0.70) Sodium Level 141 mmol/L (136-145) Potassium Level 3.0 mmol/L (3.5-5.1) 3.9 mmol/L (3.5-5.1) Chloride Level 110 mmol/L (98-107) Carbon Dioxide Level 26 mmol/L (21-32) Anion Gap 5 (6-14) Blood Urea Nitrogen 8 mg/dL (8-26) Creatinine 0.5 mg/dL (0.7-1.3) Estimated GFR (Cockcroft-Gault) 164.9 Glucose Level 104 mg/dL (70-99) Calcium Level 6.8 mg/dL (8.5-10.1) Magnesium Level 1.9 mg/dL (1.8-2.4) 2.3 mg/dL (1.8-2.4) Activated Clotting Time 160 sec (92-181) Laboratory Tests Test 04/21/17 13:41 04/21/17 18:10 04/22/17 06:00 Activated Clotting Time 160 sec (92-181) Potassium Level 3.9 mmol/L (3.5-5.1) Magnesium Level 2.3 mg/dL (1.8-2.4) Heparin Anti-Xa Act, Unfractionated < 0.10 IU/mL (0.30-0.70) Microbiology 04/17/17 Blood Culture - Preliminary, Resulted NO GROWTH AFTER 4 DAYS Medications Current Medications Heparin Sodium (Porcine) (Heparin Sodium) 10,000 unit STK-MED ONCE .ROUTE ; Start 04/17/17 at 19:03; Stop 04/17/17 at 19:04; Status DC Heparin Sodium (Porcine) (Heparin Sodium) 4,000 unit 1X ONCE IV Last administered on 04/17/17 19:05; Start 04/17/17 at 19:15; Stop 04/17/17 at 19:49; Status DC Sodium Chloride 1,000 ml @ 1,000 mls/hr Q1H IV Last administered on 04/17/17 19:07; Start 04/17/17 at 19:07; Stop 04/17/17 at 20:06; Status DC Midazolam HCl 100 ml @ As Directed STK-MED ONCE IV ; Start 04/17/17 at 19:15; Stop 04/17/17 at 19:16; Status DC Etomidate (Amidate) 20 mg STK-MED ONCE IV ; Start 04/17/17 at 19:15; Stop at 19:16; Status DC Succinylcholine Chloride (Anectine) 200 mg STK-MED ONCE .ROUTE ; Start 04/17/17 at 19:16; Stop 04/17/17 at 19:17; Status DC Heparin Sodium/ Sodium Chloride 1,500 ml @ As Directed STK-MED ONCE .ROUTE ; Start 04/17/17 at 19:24; Stop 04/17/17 at 19:25; Status DC Lidocaine HCl 20 ml STK-MED ONCE .ROUTE ; Start 04/17/17 at 19:24; Stop 04/17/17 at 19:25; Status DC Iodixanol (Visipaque 320) 100 ml STK-MED ONCE .ROUTE ; Start 04/17/17 at 19:24; Stop 04/17/17 at 19:25; Status DC Dopamine HCl/ Dextrose 250 ml @ 0 mls/hr CONT PRN IV SEE I/O RECORD Last administered on 04/17/17 19:32; Start 04/17/17 at 19:30; Stop 04/17/17 at 20:54; Status DC Dopamine HCl/ Dextrose 250 ml @ As Directed STK-MED ONCE IV ; Start 04/17/17 at 19:30; Stop 04/17/17 at 19:31; Status DC Ondansetron HCl (Zofran) 4 mg PRN Q8HRS PRN IV NAUSEA/VOMITING; Start 04/17/17 at 19:30; Stop 04/18/17 at 19:29; Status DC Sodium Chloride 1,000 ml @ 100 mls/hr Q10H IV Last administered on 04/18/17 12 :35; Start 04/17/17 at 19:30; Stop 04/18/17 at 19:29; Status DC Acetaminophen (Tylenol) 650 mg PRN Q4HRS PRN PO FEVER; Start 04/17/17 at 19:30; Stop 04/18/17 at 19:29; Status DC Heparin Sodium (Porcine) (Heparin Sodium) 10,000 unit STK-MED ONCE .ROUTE ; Start 04/17/17 at 20:16; Stop 04/17/17 at 20:17; Status DC Tirofiban/Sodium Chloride 0 ml @ As Directed STK-MED ONCE IV ; Start 04/17/17 at 20:16; Stop 04/17/17 at 20:17; Status DC Famotidine (Pepcid) 20 mg QHS IVP Last administered on 04/17/17 22:30; Start at 21:00; Stop 04/19/17 at 08:05; Status DC Etomidate (Amidate) 20 mg 1X ONCE IV Last administered on 04/17/17 19:00; Start 04/17/17 at 20:30; Stop 04/17/17 at 21:05; Status DC Succinylcholine Chloride (Anectine) 100 mg 1X ONCE IV Last administered on 04/17 19:00; Start 04/17/17 at 20:30; Stop 04/17/17 at 21:07; Status DC Lidocaine HCl/ Dextrose 500 ml @ 0 mls/hr 1X ONCE IV Last administered on 18:55; Start 04/17/17 at 20:30; Stop 04/17/17 at 21:08; Status DC Dopamine HCl/ Dextrose 250 ml @ 0 mls/hr CONT PRN IV SEE I/O RECORD Last administered on 04/20/17 09:36; Start 04/17/17 at 20:30 Heparin Sodium/ Dextrose 500 ml @ As Directed STK-MED ONCE IV ; Start 04/17/17 at 20:43; Stop 04/17/17 at 20:44; Status DC Heparin Sodium/ Dextrose 500 ml @ 0 mls/hr CONT PRN IV SEE I/O RECORD Last administered on 04/19/17 01:48; Start 04/17/17 at 20:45; Stop 04/19/17 at 16:41; Status DC Midazolam HCl (Versed) 5 mg 1X ONCE IV Last administered on 04/17/17 19:17; Start 04/17/17 at 21:00; Stop 04/17/17 at 21:07; Status DC Heparin Sodium (Porcine) (Heparin Sodium) 2,000 unit 1X ONCE IV Last administered on 04/17/17 20:59; Start 04/17/17 at 21:00; Stop 04/17/17 at 21:06; Status DC Iodixanol (Visipaque 320) 134 ml 1X ONCE IART Last administered on 04/17/17 20 :58; Start 04/17/17 at 21:00; Stop 04/17/17 at 21:04; Status DC Lidocaine HCl 20 ml 1X ONCE IJ Last administered on 04/17/17 20:58; Start 04/17 at 21:00; Stop 04/17/17 at 21:08; Status DC Fentanyl Citrate 30 ml @ As Directed STK-MED ONCE IV ; Start 04/17/17 at 21:09; Stop 04/17/17 at 21:10; Status DC Sodium Chloride 1,000 ml @ 1,000 mls/hr Q1H IV Last administered on 04/17/17 23:30; Start 04/17/17 at 21:30; Stop 04/18/17 at 03:42; Status DC Fentanyl Citrate (Fentanyl 2ml Vial) 25 mcg PRN Q30MIN PRN IV SED; Start at 21:30; Stop 04/21/17 at 14:35; Status DC Lorazepam (Ativan) 1 mg PRN Q30MIN PRN IV SEDATION Last administered on 20:49; Start 04/17/17 at 21:30; Stop 04/20/17 at 21:45; Status DC Fentanyl Citrate 30 ml @ 2.5 mls/hr CONT PRN PRN IV IVF Last administered on 13:30; Start 04/17/17 at 21:30; Stop 04/21/17 at 11:35; Status DC Propofol 100 ml @ 0 mls/hr CONT PRN IV SEE I/O RECORD Last administered on 09:26; Start 04/17/17 at 21:30; Stop 04/21/17 at 11:35; Status DC Vecuronium [place] (Norcuron Bolus) DOSE AT 0.1 mg/kg PRN Q30MIN PRN IV SHIVERING Last administered on 04/18/17 16:00; Start 04/17/17 at 21:30; Stop 04/21 at 11:35; Status DC Meperidine HCl (Demerol) 12.5 mg PRN Q30MIN PRN IV SHIVERING Last administered on 04/18/17 04:17; Start 04/17/17 at 21:30; Stop 04/18/17 at 04:18; Status DC Multi-Ingred Cream/Lotion/Oil/ Oint (Artificial Tears Eye Oint) 1 balaji PRN Q6HRS PRN OU 0.5 INCH FOR DRY EYE Last administered on 04/18/17 23:57; Start at 21:30; Stop 04/21/17 at 14:35; Status DC Famotidine (Pepcid) 20 mg BID IVP Last administered on 04/21/17 09:00; Start at 09:00; Stop 04/21/17 at 14:35; Status DC Aspirin (Aspirin) 300 mg DAILY [place] Last administered on 04/21/17 09:00; Start at 09:00; Stop 04/21/17 at 14:35; Status DC Sodium Chloride (Normal Saline Flush) 3 ml QSHIFT PRN IV AFTER MEDS AND BLOOD DRAWS; Start 04/17/17 at 21:30; Stop 04/21/17 at 14:35; Status DC Acetaminophen (Tylenol) 650 mg Q6HRS NG ; Start 04/18/17 at 00:00; Stop 04/18/17 at 23:59; Status DC Acetaminophen (Acetaminophen Supp) 650 mg PRN Q6HRS PRN NH MILD PAIN / TEMP Last administered on 04/19/17 12:20; Start 04/18/17 at 21:30; Stop 04/21/17 at 14: 35; Status DC Acetaminophen (Tylenol) 650 mg PRN Q6HRS PRN NG MILD PAIN / TEMP; Start at 21:30; Stop 04/21/17 at 14:35; Status DC Info 1 ea DAILY PRN MC PER PROTOCOL; Start 04/19/17 at 21:30; Stop 04/21/17 at 14 :35; Status DC Heparin Sodium/ Dextrose 500 ml @ 0 mls/hr CONT PRN IV SEE I/O RECORD; Start at 21:30; Stop 04/19/17 at 07:26; Status DC Heparin Sodium (Porcine) (Heparin Sodium) 1,450 unit PRN Q6HRS PRN IV FOR UFH LEVEL LESS THAN 0.2; Start 04/17/17 at 21:30; Stop 04/19/17 at 16:41; Status DC Sodium Chloride 1,000 ml @ 60 mls/hr [id number] IV Last administered on 04/19/17 10:21; Start 04/17/17 at 21:45; Stop 04/19/17 at 18:15; Status DC Midazolam HCl 100 ml @ 0 mls/hr CONT PRN IV SEE I/O RECORD; Start 04/17/17 at 22 :00; Stop 04/21/17 at 11:35; Status DC Sodium Bicarbonate 100 meq 1X ONCE IV Last administered on 04/18/17 02:02; Start 04/18/17 at 00:00; Stop 04/18/17 at 00:01; Status DC Amiodarone HCl 900 mg/Dextrose 518 ml @ 0 mls/hr 1X ONCE IV Last administered on 04/18/17 08:00; Start 04/18/17 at 08:00; Stop 04/18/17 at 08:01; Status DC Pneumococcal Polyvalent Vaccine (Do NOT chart on this placeholder) 1 each PRN DAILY PRN MC UNABLE TO RESPOND; Start 04/18/17 at 08:45; Status Cancel Amiodarone HCl 900 mg/Dextrose 518 ml @ 34.53 mls/ hr CONT PRN IV SEE I/O RECORD; Start 04/18/17 at 09:45; Stop 04/20/17 at 02:29; Status DC Potassium Chloride 50 ml @ 50 mls/hr 1X ONCE IV ; Start 04/18/17 at 10:30; Stop 04/18/17 at 10:30; Status DC Potassium Chloride 100 ml @ 100 mls/hr Q1H IV Last administered on 04/18/17 11 :39; Start 04/18/17 at 10:30; Stop 04/18/17 at 12:29; Status DC Ephedrine Sulfate 50 mg STK-MED ONCE IV ; Start 04/18/17 at 14:56; Stop 04/18/17 at 14:57; Status DC Potassium Chloride 50 ml @ 50 mls/hr Q1H IV Last administered on 04/18/17 19:23 ; Start 04/18/17 at 17:30; Stop 04/18/17 at 20:29; Status DC Magnesium Sulfate/ Dextrose 100 ml @ 100 mls/hr 1X ONCE IV Last administered on 04/18/17 17:10; Start 04/18/17 at 17:30; Stop 04/18/17 at 18:29; Status DC Calcium Gluconate (Calcium Gluconate) 1,000 mg 1X ONCE IV Last administered on 04/18/17 17:08; Start 04/18/17 at 17:15; Stop 04/18/17 at 17:16; Status DC Epinephrine HCl (EPINEPHrine SYRINGE) 1 mg STK-MED ONCE .ROUTE ; Start 04/17/17 at 17:03; Stop 04/18/17 at 17:03; Status DC Info (Anti-Coagulation Monitoring By Pharmacy) 1 each PRN DAILY PRN MC SEE COMMENTS Last administered on 04/21/17 13:24; Start 04/19/17 at 08:15 Chlorhexidine Gluconate (Peridex) 15 ml BID MM Last administered on 04/20/17 21 :47; Start 04/19/17 at 09:00; Stop 04/21/17 at 11:35; Status DC Amiodarone HCl 450 mg/Dextrose 259 ml @ 17.26 mls/ hr CONT PRN IV SEE I/O RECORD Last administered on 04/21/17 22:27; Start 04/19/17 at 13:00 Midazolam HCl (Versed) 5 mg STK-MED ONCE .ROUTE ; Start 04/19/17 at 16:21; Stop 04/19/17 at 16:22; Status DC Midazolam HCl (Versed) 1 mg PRN Q2HR PRN IV SEDATION FOR VENT; Start 04/19/17 at 16:30; Stop 04/21/17 at 11:35; Status DC Fentanyl Citrate (Fentanyl 2ml Vial) 25 mcg PRN Q2HR PRN IV PAIN; Start at 16:30 Fentanyl Citrate (Fentanyl 2ml Vial) 50 mcg PRN Q2HR PRN IV PAIN Last administered on 04/22/17 02:56; Start 04/19/17 at 16:30 Midazolam HCl (Versed) 2 mg PRN Q2HR PRN IV SEDATION FOR VENT Last administered on 04/20/17 07:24; Start 04/19/17 at 16:30 Heparin Sodium/ Dextrose 500 ml @ 0 mls/hr CONT PRN IV SEE I/O RECORD Last administered on 04/20/17 07:26; Start 04/19/17 at 16:45 Heparin Sodium (Porcine) (Heparin Sodium) 1,450 unit PRN Q6HRS PRN IV FOR UFH LEVEL LESS THAN 0.2 Last administered on 04/19/17 20:56; Start 04/19/17 at 16:45 Midazolam HCl (Versed) 2 mg 1X ONCE IV Last administered on 04/19/17 16:45; Start 04/19/17 at 16:45; Stop 04/19/17 at 16:46; Status DC Sodium Chloride 1,000 ml @ 100 mls/hr Q10H IV Last administered on 04/21/17 03 :38; Start 04/19/17 at 18:15; Stop 04/21/17 at 11:35; Status DC Magnesium Sulfate/ Dextrose 50 ml @ 25 mls/hr 1X ONCE IV Last administered on 04/20/17 12:22; Start 04/20/17 at 11:45; Stop 04/20/17 at 13:44; Status DC Haloperidol Lactate (Haldol) 5 mg 1X ONCE IVP ; Start 04/20/17 at 22:00; Stop at 22:01; Status DC Lorazepam (Ativan) 1 mg PRN Q3HRS PRN IV ANXIETY / AGITATION Last administered on 04/22/17 02:57; Start 04/20/17 at 21:30 Potassium Chloride 50 ml @ 25 mls/hr Q2H IV Last administered on 04/21/17 15:07 ; Start 04/21/17 at 07:00; Stop 04/21/17 at 14:59; Status DC Pneumococcal Polyvalent Vaccine (Pneumovax 23) 0.5 ml ONCE ONCE VAX IM ; Start 04/22/17 at 09:00; Stop 04/22/17 at 09:01; Status DC Magnesium Sulfate/ Dextrose 100 ml @ 100 mls/hr 1X ONCE IV ; Start 04/21/17 at 13:00; Stop 04/21/17 at 13:59; Status Cancel Magnesium Sulfate/ Dextrose 100 ml @ 25 mls/hr 1X ONCE IV ; Start 04/21/17 at 13:00; Stop 04/21/17 at 16:59; Status Cancel Magnesium Sulfate/ Dextrose 50 ml @ 25 mls/hr 1X ONCE IV Last administered on 04/21/17 15:06; Start 04/21/17 at 13:00; Stop 04/21/17 at 14:59; Status DC Sodium Chloride 1,000 ml @ 100 mls/hr Q10H IV Last administered on 04/22/17 09 :36; Start 04/21/17 at 14:45; Stop 04/22/17 at 11:20; Status DC Midazolam HCl (Versed) 5 mg STK-MED ONCE .ROUTE ; Start 04/21/17 at 17:29; Stop 04/21/17 at 17:30; Status DC Midazolam HCl (Versed) 5 mg 1X ONCE IV Last administered on 04/21/17t 19:15; Start 04/21/17 at 19:15; Stop 04/21/17 at 19:16; Status DC Amino Acids/ Glycerin/ Electrolytes 1,000 ml @ 75 mls/hr [id number] IV ; Start 04/22/17 at 11:30; Status UNV Active Scripts Active Reported [No home meds] Vitals/I & O Vital Sign - Last 24 Hours 04/21/17 04/21/17 04/21/17 04/21/17 12:00 12:04 13:00 14:00 Temp 97.9 97.9 Pulse 62 63 63 Resp 12 26 24 B/P (MAP) 112/50 (70) 124/49 (74) 122/49 (73) Pulse Ox 98 96 96 O2 Delivery Room Air Nasal Cannula Room Air Room Air O2 Flow Rate 1.0 04/21/17 04/21/17 04/21/17 04/21/17 15:00 16:00 16:06 16:32 Temp 97.6 97.6 Pulse 72 67 Resp 24 28 35 B/P (MAP) 132/60 (84) 134/59 (84) Pulse Ox 100 99 100 O2 Delivery Room Air Nasal Cannula Room Air Room Air O2 Flow Rate 1.0 04/21/17 04/21/17 04/21/17 04/21/17 17:00 17:15 17:30 17:45 Pulse 70 70 78 70 Resp 22 24 31 32 B/P (MAP) 167/82 (110) 131/52 (78) 125/84 (98) 122/71 (88) Pulse Ox 99 99 99 100 O2 Delivery Room Air Nasal Cannula Nasal Cannula Nasal Cannula O2 Flow Rate 3.0 3.0 3.0 04/21/17 04/21/17 04/21/17 04/21/17 18:00 18:15 18:30 19:00 Pulse 68 64 66 64 Resp 32 33 29 28 B/P (MAP) 125/66 (85) 125/68 (87) 117/62 (80) 116/71 (86) Pulse Ox 100 100 100 100 O2 Delivery Nasal Cannula Nasal Cannula Nasal Cannula Nasal Cannula O2 Flow Rate 1.0 1.0 1.0 1.0 04/21/17 04/21/17 04/21/17 04/21/17 19:30 19:37 20:00 21:00 Temp 97.9 97.9 Pulse 62 61 77 Resp 33 30 26 B/P (MAP) 129/72 (91) 132/69 (90) 143/71 (95) Pulse Ox 100 100 100 O2 Delivery Nasal Cannula Nasal Cannula Nasal Cannula Nasal Cannula O2 Flow Rate 1.0 1.0 1.0 1.0 04/21/17 04/21/17 04/21/17 04/22/17 22:00 23:00 23:47 00:00 Temp 97.6 97.6 Pulse 66 72 68 Resp 23 26 24 24 B/P (MAP) 121/74 (90) 119/70 (86) 110/64 (79) Pulse Ox 100 100 98 98 O2 Delivery Nasal Cannula Nasal Cannula Nasal Cannula Nasal Cannula O2 Flow Rate 1.0 1.0 1.0 1.0 04/22/17 04/22/17 04/22/17 04/22/17 00:00 00:19 01:00 02:00 Pulse 70 61 Resp 24 22 B/P (MAP) 110/58 (75) 105/57 (73) Pulse Ox 95 99 O2 Delivery Nasal Cannula Room Air Room Air O2 Flow Rate 1.0 1.0 04/22/17 04/22/17 04/22/17 04/22/17 02:56 02:59 03:30 04:00 Pulse 81 Resp 27 26 24 B/P (MAP) 136/75 (95) Pulse Ox 94 95 94 O2 Delivery Room Air Room Air Room Air Room Air 04/22/17 04/22/17 04/22/17 04/22/17 04:01 04:58 06:00 07:00 Temp 98.2 98.1 98.2 98.1 Pulse 66 67 74 66 Resp 26 37 18 B/P (MAP) 107/66 (80) 120/73 (89) 136/78 (97) 126/69 (88) Pulse Ox 95 99 97 95 O2 Delivery Room Air Nasal Cannula Nasal Cannula Room Air O2 Flow Rate 1.0 1.0 04/22/17 04/22/17 08:00 09:00 Pulse 61 Resp 22 B/P (MAP) 138/79 (98) Pulse Ox 97 O2 Delivery Room Air Room Air Intake and Output 04/21/17 04/21/17 04/22/17 15:00 23:00 07:00 Intake Total 347 ml 550 ml 3117 ml Output Total 605 ml 570 ml 360 ml Balance -258 ml -20 ml 2757 ml Nutrition Consultation Dietary Evaluation: Comments: REC Diet per CARDIOLOGY NURSE PRACTITIONER tube feedings if unable to adv diet Expected Outcomes/Goals: to meet > 50% est nutr needs Interpretation of weight loss: >20% in 1 year Malnutrition Findings: Food and Nutrition Intake (Sev: <50% est energy req 5days Body Fat Depletion (Non Severe: Mild Depletion Weight Status: Underweight ANTHONY MARTI K III DO Apr 22, 2017 11:21
--- NOTE | 2017-04-22 12:01 | PDOC2 ---
NEUROLOGY CONSULT Date of Admission Date of Admission DATE: 04/22/17 TIME: 11:47 Reason for Consult Reason for Consult: IMPRESSION: Anoxic encephalopathy. Metabolic encephalopathy. S/p cardiac arrest, received hypothermia. Respiratory failure. STEMI, acute Pulmonary edema. HTN Weight loss Substance use/abuse, smoking and drinking. RECOMMENDATIONS/PLAN: HCT w/o contrast. Continue Cardiac and medical treatment. EEG if has seizures. AED if has seizures. OT/PT Discussed with his daughter and sister at bedside in ICU. HISTORY OF THE PRESENT ILLNESS: 71-y-old male patient with Hx of HTN, smoking and drinking has not seen PCP for a long time. He suddenly collapsed unresponsive, and his performed CPR and called 911. EMS arrived in scene in about 5 minutes and found patient was no response. Resuscitation took place for about 15 minutes and the patient was then transferred to the ER of [facility]. He received hypothermia therapy. Neurology was called for consultation for the concerns of the prognosis of his mentation. PAST MEDICAL HISTORY: Please see above. PAST SURGERY HISTORY: No major surgery recently before this admission. ALLERGY: Unknown MEDICATIONS: Refer to [facility] FAMILY HISTORY: Non contributory. SOCIAL HISTORY: Lives with his at home. Denies illicit drug use. He smokes 3-4 cigars daily for > 30 years. He drinks 1-4 beers a day for 50 years. REVIEW OF SYSTEMS: Constitutional: Weight loss x 1 year. Head: No recent traumatic brain or head injury. Skin: No edema, or rash. Ear: No infection, tinnitus. Eyes: No vision loss or color blindness. Nose: No bleeding or purulent discharges. Hearing: No hearing decrease. Neck: No injury. Cardiac: HTN. Pulmonary: No COPD. GI: No GI ulcer, GI bleeding. Urinary/genital: No dysuria, incontinence, urinary retention. Endocrinologic: No cousin face, craniofacial dysmorphism, polydactyly. Skeletomuscular: No muscular atrophy, deformity. Neurological: see HP. Psychiatric: Denies drug use/abuse. Otherwise, not [id number] review of systems. PHYSICAL EXAMINATION: General appearance is in subacute distress. HEENT: Normocephalic and nontraumatic. Eyes, nose, ears, and throat are unremarkable. Neck is supple. No lymphadenopathy. No bruits are heard over the carotid artery. No crepitus. Cardiovascular: S1, S2, seemed regular rate and rhythm. Pulmonary: mildly decreased to auscultation bilaterally. Abdomen: Bowel sounds are positive. Abdomen is soft, nontender, and nondistended. Extremities: No rash, lesions, or edema. No restriction of range of motion NEUROLOGICAL EXAMINATION: Awake. Not oriented to time, but knows place and person. PERRL. EOMI. CN: no focal findings. Muscle tone: within normal. Muscle strength: 4 DTR: 2 Plantar reflex: Neutral response bilaterally Gait: not examined. Sensory exam: no acute abnormal findings. No obvious cerebellar signs elicited. F-T-N test fine. Current Medications Current Medications Current Medications Heparin Sodium (Porcine) (Heparin Sodium) 10,000 unit STK-MED ONCE .ROUTE ; Start 04/17/17 at 19:03; Stop 04/17/17 at 19:04; Status DC Heparin Sodium (Porcine) (Heparin Sodium) 4,000 unit 1X ONCE IV Last administered on 04/17/17 19:05; Start 04/17/17 at 19:15; Stop 04/17/17 at 19:49; Status DC Sodium Chloride 1,000 ml @ 1,000 mls/hr Q1H IV Last administered on 04/17/17 19:07; Start 04/17/17 at 19:07; Stop 04/17/17 at 20:06; Status DC Midazolam HCl 100 ml @ As Directed STK-MED ONCE IV ; Start 04/17/17 at 19:15; Stop 04/17/17 at 19:16; Status DC Etomidate (Amidate) 20 mg STK-MED ONCE IV ; Start 04/17/17 at 19:15; Stop at 19:16; Status DC Succinylcholine Chloride (Anectine) 200 mg STK-MED ONCE .ROUTE ; Start 04/17/17 at 19:16; Stop 04/17/17 at 19:17; Status DC Heparin Sodium/ Sodium Chloride 1,500 ml @ As Directed STK-MED ONCE .ROUTE ; Start 04/17/17 at 19:24; Stop 04/17/17 at 19:25; Status DC Lidocaine HCl 20 ml STK-MED ONCE .ROUTE ; Start 04/17/17 at 19:24; Stop 04/17/17 at 19:25; Status DC Iodixanol (Visipaque 320) 100 ml STK-MED ONCE .ROUTE ; Start 04/17/17 at 19:24; Stop 04/17/17 at 19:25; Status DC Dopamine HCl/ Dextrose 250 ml @ 0 mls/hr CONT PRN IV SEE I/O RECORD Last administered on 04/17/17 19:32; Start 04/17/17 at 19:30; Stop 04/17/17 at 20:54; Status DC Dopamine HCl/ Dextrose 250 ml @ As Directed STK-MED ONCE IV ; Start 04/17/17 at 19:30; Stop 04/17/17 at 19:31; Status DC Ondansetron HCl (Zofran) 4 mg PRN Q8HRS PRN IV NAUSEA/VOMITING; Start 04/17/17 at 19:30; Stop 04/18/17 at 19:29; Status DC Sodium Chloride 1,000 ml @ 100 mls/hr Q10H IV Last administered on 04/18/17 12 :35; Start 04/17/17 at 19:30; Stop 04/18/17 at 19:29; Status DC Acetaminophen (Tylenol) 650 mg PRN Q4HRS PRN PO FEVER; Start 04/17/17 at 19:30; Stop 04/18/17 at 19:29; Status DC Heparin Sodium (Porcine) (Heparin Sodium) 10,000 unit STK-MED ONCE .ROUTE ; Start 04/17/17 at 20:16; Stop 04/17/17 at 20:17; Status DC Tirofiban/Sodium Chloride 0 ml @ As Directed STK-MED ONCE IV ; Start 04/17/17 at 20:16; Stop 04/17/17 at 20:17; Status DC Famotidine (Pepcid) 20 mg QHS IVP Last administered on 04/17/17 22:30; Start at 21:00; Stop 04/19/17 at 08:05; Status DC Etomidate (Amidate) 20 mg 1X ONCE IV Last administered on 04/17/17 19:00; Start 04/17/17 at 20:30; Stop 04/17/17 at 21:05; Status DC Succinylcholine Chloride (Anectine) 100 mg 1X ONCE IV Last administered on 04/17 19:00; Start 04/17/17 at 20:30; Stop 04/17/17 at 21:07; Status DC Lidocaine HCl/ Dextrose 500 ml @ 0 mls/hr 1X ONCE IV Last administered on 18:55; Start 04/17/17 at 20:30; Stop 04/17/17 at 21:08; Status DC Dopamine HCl/ Dextrose 250 ml @ 0 mls/hr CONT PRN IV SEE I/O RECORD Last administered on 04/20/17 09:36; Start 04/17/17 at 20:30 Heparin Sodium/ Dextrose 500 ml @ As Directed STK-MED ONCE IV ; Start 04/17/17 at 20:43; Stop 04/17/17 at 20:44; Status DC Heparin Sodium/ Dextrose 500 ml @ 0 mls/hr CONT PRN IV SEE I/O RECORD Last administered on 04/19/17 01:48; Start 04/17/17 at 20:45; Stop 04/19/17 at 16:41; Status DC Midazolam HCl (Versed) 5 mg 1X ONCE IV Last administered on 04/17/17 19:17; Start 04/17/17 at 21:00; Stop 04/17/17 at 21:07; Status DC Heparin Sodium (Porcine) (Heparin Sodium) 2,000 unit 1X ONCE IV Last administered on 04/17/17 20:59; Start 04/17/17 at 21:00; Stop 04/17/17 at 21:06; Status DC Iodixanol (Visipaque 320) 134 ml 1X ONCE IART Last administered on 04/17/17 20 :58; Start 04/17/17 at 21:00; Stop 04/17/17 at 21:04; Status DC Lidocaine HCl 20 ml 1X ONCE IJ Last administered on 04/17/17 20:58; Start 04/17 at 21:00; Stop 04/17/17 at 21:08; Status DC Fentanyl Citrate 30 ml @ As Directed STK-MED ONCE IV ; Start 04/17/17 at 21:09; Stop 04/17/17 at 21:10; Status DC Sodium Chloride 1,000 ml @ 1,000 mls/hr Q1H IV Last administered on 04/17/17 23:30; Start 04/17/17 at 21:30; Stop 04/18/17 at 03:42; Status DC Fentanyl Citrate (Fentanyl 2ml Vial) 25 mcg PRN Q30MIN PRN IV SED; Start at 21:30; Stop 04/21/17 at 14:35; Status DC Lorazepam (Ativan) 1 mg PRN Q30MIN PRN IV SEDATION Last administered on 20:49; Start 04/17/17 at 21:30; Stop 04/20/17 at 21:45; Status DC Fentanyl Citrate 30 ml @ 2.5 mls/hr CONT PRN PRN IV IVF Last administered on 13:30; Start 04/17/17 at 21:30; Stop 04/21/17 at 11:35; Status DC Propofol 100 ml @ 0 mls/hr CONT PRN IV SEE I/O RECORD Last administered on 09:26; Start 04/17/17 at 21:30; Stop 04/21/17 at 11:35; Status DC Vecuronium [place] (Norcuron Bolus) DOSE AT 0.1 mg/kg PRN Q30MIN PRN IV SHIVERING Last administered on 04/18/17 16:00; Start 04/17/17 at 21:30; Stop 04/21 at 11:35; Status DC Meperidine HCl (Demerol) 12.5 mg PRN Q30MIN PRN IV SHIVERING Last administered on 04/18/17 04:17; Start 04/17/17 at 21:30; Stop 04/18/17 at 04:18; Status DC Multi-Ingred Cream/Lotion/Oil/ Oint (Artificial Tears Eye Oint) 1 balaji PRN Q6HRS PRN OU 0.5 INCH FOR DRY EYE Last administered on 04/18/17 23:57; Start at 21:30; Stop 04/21/17 at 14:35; Status DC Famotidine (Pepcid) 20 mg BID IVP Last administered on 04/21/17 09:00; Start at 09:00; Stop 04/21/17 at 14:35; Status DC Aspirin (Aspirin) 300 mg DAILY OR Last administered on 04/21/17 09:00; Start at 09:00; Stop 04/21/17 at 14:35; Status DC Sodium Chloride (Normal Saline Flush) 3 ml QSHIFT PRN IV AFTER MEDS AND BLOOD DRAWS; Start 04/17/17 at 21:30; Stop 04/21/17 at 14:35; Status DC Acetaminophen (Tylenol) 650 mg Q6HRS NG ; Start 04/18/17 at 00:00; Stop 04/18/17 at 23:59; Status DC Acetaminophen (Acetaminophen Supp) 650 mg PRN Q6HRS PRN OR MILD PAIN / TEMP Last administered on 04/19/17 12:20; Start 04/18/17 at 21:30; Stop 04/21/17 at 14: 35; Status DC Acetaminophen (Tylenol) 650 mg PRN Q6HRS PRN NG MILD PAIN / TEMP; Start at 21:30; Stop 04/21/17 at 14:35; Status DC Info 1 ea DAILY PRN MC PER PROTOCOL; Start 04/19/17 at 21:30; Stop 04/21/17 at 14 :35; Status DC Heparin Sodium/ Dextrose 500 ml @ 0 mls/hr CONT PRN IV SEE I/O RECORD; Start at 21:30; Stop 04/19/17 at 07:26; Status DC Heparin Sodium (Porcine) (Heparin Sodium) 1,450 unit PRN Q6HRS PRN IV FOR UFH LEVEL LESS THAN 0.2; Start 04/17/17 at 21:30; Stop 04/19/17 at 16:41; Status DC Sodium Chloride 1,000 ml @ 60 mls/hr [id number] IV Last administered on 04/19/17 10:21; Start 04/17/17 at 21:45; Stop 04/19/17 at 18:15; Status DC Midazolam HCl 100 ml @ 0 mls/hr CONT PRN IV SEE I/O RECORD; Start 04/17/17 at 22 :00; Stop 04/21/17 at 11:35; Status DC Sodium Bicarbonate 100 meq 1X ONCE IV Last administered on 04/18/17 02:02; Start 04/18/17 at 00:00; Stop 04/18/17 at 00:01; Status DC Amiodarone HCl 900 mg/Dextrose 518 ml @ 0 mls/hr 1X ONCE IV Last administered on 04/18/17 08:00; Start 04/18/17 at 08:00; Stop 04/18/17 at 08:01; Status DC Pneumococcal Polyvalent Vaccine (Do NOT chart on this placeholder) 1 each PRN DAILY PRN MC UNABLE TO RESPOND; Start 04/18/17 at 08:45; Status Cancel Amiodarone HCl 900 mg/Dextrose 518 ml @ 34.53 mls/ hr CONT PRN IV SEE I/O RECORD; Start 04/18/17 at 09:45; Stop 04/20/17 at 02:29; Status DC Potassium Chloride 50 ml @ 50 mls/hr 1X ONCE IV ; Start 04/18/17 at 10:30; Stop 04/18/17 at 10:30; Status DC Potassium Chloride 100 ml @ 100 mls/hr Q1H IV Last administered on 04/18/17 11 :39; Start 04/18/17 at 10:30; Stop 04/18/17 at 12:29; Status DC Ephedrine Sulfate 50 mg STK-MED ONCE IV ; Start 04/18/17 at 14:56; Stop 04/18/17 at 14:57; Status DC Potassium Chloride 50 ml @ 50 mls/hr Q1H IV Last administered on 04/18/17 19:23 ; Start 04/18/17 at 17:30; Stop 04/18/17 at 20:29; Status DC Magnesium Sulfate/ Dextrose 100 ml @ 100 mls/hr 1X ONCE IV Last administered on 04/18/17 17:10; Start 04/18/17 at 17:30; Stop 04/18/17 at 18:29; Status DC Calcium Gluconate (Calcium Gluconate) 1,000 mg 1X ONCE IV Last administered on 04/18/17 17:08; Start 04/18/17 at 17:15; Stop 04/18/17 at 17:16; Status DC Epinephrine HCl (EPINEPHrine SYRINGE) 1 mg STK-MED ONCE .ROUTE ; Start 04/17/17 at 17:03; Stop 04/18/17 at 17:03; Status DC Info (Anti-Coagulation Monitoring By Pharmacy) 1 each PRN DAILY PRN MC SEE COMMENTS Last administered on 04/21/17 13:24; Start 04/19/17 at 08:15 Chlorhexidine Gluconate (Peridex) 15 ml BID MM Last administered on 04/20/17 21 :47; Start 04/19/17 at 09:00; Stop 04/21/17 at 11:35; Status DC Amiodarone HCl 450 mg/Dextrose 259 ml @ 17.26 mls/ hr CONT PRN IV SEE I/O RECORD Last administered on 04/21/17 22:27; Start 04/19/17 at 13:00 Midazolam HCl (Versed) 5 mg STK-MED ONCE .ROUTE ; Start 04/19/17 at 16:21; Stop 04/19/17 at 16:22; Status DC Midazolam HCl (Versed) 1 mg PRN Q2HR PRN IV SEDATION FOR VENT; Start 04/19/17 at 16:30; Stop 04/21/17 at 11:35; Status DC Fentanyl Citrate (Fentanyl 2ml Vial) 25 mcg PRN Q2HR PRN IV PAIN; Start at 16:30 Fentanyl Citrate (Fentanyl 2ml Vial) 50 mcg PRN Q2HR PRN IV PAIN Last administered on 04/22/17 02:56; Start 04/19/17 at 16:30 Midazolam HCl (Versed) 2 mg PRN Q2HR PRN IV SEDATION FOR VENT Last administered on 04/20/17 07:24; Start 04/19/17 at 16:30 Heparin Sodium/ Dextrose 500 ml @ 0 mls/hr CONT PRN IV SEE I/O RECORD Last administered on 04/20/17 07:26; Start 04/19/17 at 16:45 Heparin Sodium (Porcine) (Heparin Sodium) 1,450 unit PRN Q6HRS PRN IV FOR UFH LEVEL LESS THAN 0.2 Last administered on 04/19/17 20:56; Start 04/19/17 at 16:45 Midazolam HCl (Versed) 2 mg 1X ONCE IV Last administered on 04/19/17 16:45; Start 04/19/17 at 16:45; Stop 04/19/17 at 16:46; Status DC Sodium Chloride 1,000 ml @ 100 mls/hr Q10H IV Last administered on 04/21/17 03 :38; Start 04/19/17 at 18:15; Stop 04/21/17 at 11:35; Status DC Magnesium Sulfate/ Dextrose 50 ml @ 25 mls/hr 1X ONCE IV Last administered on 04/20/17 12:22; Start 04/20/17 at 11:45; Stop 04/20/17 at 13:44; Status DC Haloperidol Lactate (Haldol) 5 mg 1X ONCE IVP ; Start 04/20/17 at 22:00; Stop at 22:01; Status DC Lorazepam (Ativan) 1 mg PRN Q3HRS PRN IV ANXIETY / AGITATION Last administered on 04/22/17 02:57; Start 04/20/17 at 21:30 Potassium Chloride 50 ml @ 25 mls/hr Q2H IV Last administered on 04/21/17 15:07 ; Start 04/21/17 at 07:00; Stop 04/21/17 at 14:59; Status DC Pneumococcal Polyvalent Vaccine (Pneumovax 23) 0.5 ml ONCE ONCE VAX IM ; Start 04/22/17 at 09:00; Stop 04/22/17 at 09:01; Status DC Magnesium Sulfate/ Dextrose 100 ml @ 100 mls/hr 1X ONCE IV ; Start 04/21/17 at 13:00; Stop 04/21/17 at 13:59; Status Cancel Magnesium Sulfate/ Dextrose 100 ml @ 25 mls/hr 1X ONCE IV ; Start 04/21/17 at 13:00; Stop 04/21/17 at 16:59; Status Cancel Magnesium Sulfate/ Dextrose 50 ml @ 25 mls/hr 1X ONCE IV Last administered on 04/21/17 15:06; Start 04/21/17 at 13:00; Stop 04/21/17 at 14:59; Status DC Sodium Chloride 1,000 ml @ 100 mls/hr Q10H IV Last administered on 04/22/17 09 :36; Start 04/21/17 at 14:45; Stop 04/22/17 at 11:20; Status DC Midazolam HCl (Versed) 5 mg STK-MED ONCE .ROUTE ; Start 04/21/17 at 17:29; Stop 04/21/17 at 17:30; Status DC Midazolam HCl (Versed) 5 mg 1X ONCE IV Last administered on 04/21/17 19:15; Start 04/21/17 at 19:15; Stop 04/21/17 at 19:16; Status DC Amino Acids/ Glycerin/ Electrolytes 1,000 ml @ 75 mls/hr [id number] IV ; Start 04/22/17 at 11:30 Active Scripts Active Reported [No home meds] Allergies Allergies: Coded Allergies: Penicillins (Verified Allergy, Intermediate, 04/17/17) Vitals VITALS Vital Signs Date Time Temp Pulse Resp B/P (MAP) Pulse Ox O2 Delivery O2 Flow Rate FiO2 04/22/17 09:00 61 22 138/79 (98) 97 Room Air 04/22/17 07:00 98.1 98.1 04/22/17 06:00 1.0 Labs Labs Laboratory Tests Test 04/21/17 05:40 04/21/17 13:41 04/21/17 18:10 04/22/17 06:00 White Blood Count 9.2 x10^3/uL (4.0-11.0) Red Blood Count 3.13 x10^6/uL (4.30-5.70) Hemoglobin 11.2 g/dL (13.0-17.5) Hematocrit 31.9 % (39.0-53.0) Mean Corpuscular Volume 102 fL (79-100) Mean Corpuscular Hemoglobin 36 pg (25-35) Mean Corpuscular Hemoglobin Concent 35 g/dL (31-37) Red Cell Distribution Width 13.8 % (11.5-14.5) Platelet Count 73 x10^3/uL (140-400) Neutrophils (%) (Auto) 84 % (31-73) Lymphocytes (%) (Auto) 8 % (24-48) Monocytes (%) (Auto) 8 % (0-9) Eosinophils (%) (Auto) 0 % (0-3) Basophils (%) (Auto) 0 % (0-3) Neutrophils # (Auto) 7.7 x10^3uL (1.8-7.7) Lymphocytes # (Auto) 0.8 x10^3/uL (1.0-4.8) Monocytes # (Auto) 0.7 x10^3/uL (0.0-1.1) Eosinophils # (Auto) 0.0 x10^3/uL (0.0-0.7) Basophils # (Auto) 0.0 x10^3/uL (0.0-0.2) Heparin Anti-Xa Act, Unfractionated 0.31 IU/mL (0.30-0.70) < 0.10 IU/mL (0.30-0.70) Sodium Level 141 mmol/L (136-145) Potassium Level 3.0 mmol/L (3.5-5.1) 3.9 mmol/L (3.5-5.1) Chloride Level 110 mmol/L (98-107) Carbon Dioxide Level 26 mmol/L (21-32) Anion Gap 5 (6-14) Blood Urea Nitrogen 8 mg/dL (8-26) Creatinine 0.5 mg/dL (0.7-1.3) Estimated GFR (Cockcroft-Gault) 164.9 Glucose Level 104 mg/dL (70-99) Calcium Level 6.8 mg/dL (8.5-10.1) Magnesium Level 1.9 mg/dL (1.8-2.4) 2.3 mg/dL (1.8-2.4) Activated Clotting Time 160 sec (92-181) Laboratory Tests Test 04/21/17 13:41 04/21/17 18:10 04/22/17 06:00 Activated Clotting Time 160 sec (92-181) Potassium Level 3.9 mmol/L (3.5-5.1) Magnesium Level 2.3 mg/dL (1.8-2.4) Heparin Anti-Xa Act, Unfractionated < 0.10 IU/mL (0.30-0.70) KONSTANTIN WARE MD Apr 22, 2017 12:00
[2017-04-22] MEDS: AMIODARONE 450 MG in IV DEXTROSE 5% 250 ML IV PRN (12:50)
--- NOTE | 2017-04-22 13:06 | RAD ---
Indication status post cardiac arrest. Assess for potential anoxic injury. Noncontrast images of the head were obtained. No prior imaging of the head is available. The calvarium appears unremarkable. The visualized paranasal sinuses appear unremarkable. There is no subdural or epidural hematoma. The ventricles and sulci are normal given the patient's age. There is no mass or midline shift. No hemorrhage or acute finding is seen. There is a tiny lucency in the left basal ganglia likely reflective of old microvascular disease IMPRESSION: No acute intracranial finding seen. PQRS Compliance Statement: One or more of the following individualized dose reduction techniques were utilized for this examination: 1. Automated exposure control 2. Adjustment of the mA and/or kV according to patient size 3. Use of iterative reconstruction technique
[2017-04-22] MEDS: ANTI-COAG MONITOR BY PHARMACY. MC PRN (13:12)
[2017-04-22] MEDS: AMINO AC 3%/ELECTROLYTE/GLYCER 1,000 ML IV SCH (13:34)
--- NOTE | 2017-04-22 14:04 | PDOC ---
PULMONARY PROGRESS NOTES Subjective EXTUBATED 04/20 MORE RESPONSIVE TODAY NO RESP COMPLAINTS Vitals Vital Signs Date Time Temp Pulse Resp B/P (MAP) Pulse Ox O2 Delivery O2 Flow Rate FiO2 04/22/17 12:00 Room Air 04/22/17 09:00 61 22 138/79 (98) 97 04/22/17 07:00 98.1 98.1 04/22/17 06:00 1.0 General: Alert Lungs: Crackles Cardiovascular: S1, S2 Abdomen: Soft, Non-tender Neuro Exam: Alert Extremities: Other (EDEMA) Skin: Warm Labs Laboratory Tests Test 04/21/17 05:40 04/21/17 13:41 04/21/17 18:10 04/22/17 06:00 White Blood Count 9.2 x10^3/uL (4.0-11.0) Red Blood Count 3.13 x10^6/uL (4.30-5.70) Hemoglobin 11.2 g/dL (13.0-17.5) Hematocrit 31.9 % (39.0-53.0) Mean Corpuscular Volume 102 fL (79-100) Mean Corpuscular Hemoglobin 36 pg (25-35) Mean Corpuscular Hemoglobin Concent 35 g/dL (31-37) Red Cell Distribution Width 13.8 % (11.5-14.5) Platelet Count 73 x10^3/uL (140-400) Neutrophils (%) (Auto) 84 % (31-73) Lymphocytes (%) (Auto) 8 % (24-48) Monocytes (%) (Auto) 8 % (0-9) Eosinophils (%) (Auto) 0 % (0-3) Basophils (%) (Auto) 0 % (0-3) Neutrophils # (Auto) 7.7 x10^3uL (1.8-7.7) Lymphocytes # (Auto) 0.8 x10^3/uL (1.0-4.8) Monocytes # (Auto) 0.7 x10^3/uL (0.0-1.1) Eosinophils # (Auto) 0.0 x10^3/uL (0.0-0.7) Basophils # (Auto) 0.0 x10^3/uL (0.0-0.2) Heparin Anti-Xa Act, Unfractionated 0.31 IU/mL (0.30-0.70) < 0.10 IU/mL (0.30-0.70) Sodium Level 141 mmol/L (136-145) Potassium Level 3.0 mmol/L (3.5-5.1) 3.9 mmol/L (3.5-5.1) Chloride Level 110 mmol/L (98-107) Carbon Dioxide Level 26 mmol/L (21-32) Anion Gap 5 (6-14) Blood Urea Nitrogen 8 mg/dL (8-26) Creatinine 0.5 mg/dL (0.7-1.3) Estimated GFR (Cockcroft-Gault) 164.9 Glucose Level 104 mg/dL (70-99) Calcium Level 6.8 mg/dL (8.5-10.1) Magnesium Level 1.9 mg/dL (1.8-2.4) 2.3 mg/dL (1.8-2.4) Activated Clotting Time 160 sec (92-181) Laboratory Tests Test 04/21/17 18:10 04/22/17 06:00 Potassium Level 3.9 mmol/L (3.5-5.1) Magnesium Level 2.3 mg/dL (1.8-2.4) Heparin Anti-Xa Act, Unfractionated < 0.10 IU/mL (0.30-0.70) Medications Active Scripts Medications Dose Route/Sig Max Daily Dose Days Date Category [No home meds] 04/18/17 Reported Impression . ACUTE RESPIRATORY FAILURE SEC TO CARDIAC ARREST VF/DEFIBRILLATED IN FIELD CAD PER CARD HYPOKALEMIA POSSIBLE ANOXIC BRAIN INJURY CARDIOGENIC SHOCK Brief cath note. Initial AO pressure 98/58, post IABP Ao 136/78 Coronaries Left main. 45-50% lesion. LAD. Mid 95% lesion. Distal collaterals to the RCA. LCX. Proximal 80% lesion, OM1 85% lesion. RCA. Proximal chronic occlusion with distal collaterals from the RCA and LAD. No LV gram. AO root and abd. aorta without significant lesions. IABP placed from right femoral access without complications. Conclusions. 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 IABP placed with significant improvement in BP. Will consider for CABG. The patient remains on a ventilator. Discussed with the patients family. Full report to follow. Plan . CXR WORSE NEEDS LASOX ON AMIODARONE DRIP BALLOON PUMP D/C OFF RESP STATUS IS COMPENSATED FOLLOW CARD INPUT POSSIBLE CABG IN FUTURE D/C VERSED AND FENTANYL PRESSORS PER CARD APRIL ESCUDERO MD Apr 22, 2017 14:04
--- NOTE | 2017-04-22 15:55 | PDOC ---
ERICKA RANGELILY ACADEMIC GUIDANCE SPECIALIST 04/22/17 1555: CARDIO Progress Notes Date and Time Date of Service 04/22/17 Time of Evaluation 1425 Subjective Subjective: No Chest Pain, No shortness of breath, Other (sitting up in chair ) Vitals Vitals Vital Signs Date Time Temp Pulse Resp B/P (MAP) Pulse Ox O2 Delivery O2 Flow Rate FiO2 04/22/17 12:00 Room Air 04/22/17 12:00 98.2 66 22 131/71 (91) 97 98.2 04/22/17 06:00 1.0 Weight Weight [ ] Input and Output Intake and Output Intake and Output 04/22/17 07:00 Intake Total 4014 ml Output Total 1535 ml Balance 2479 ml Intake Oral 0 ml IV Total 4014 ml Output Urine Total 1535 ml Laboratory Labs Laboratory Tests Test 04/21/17 18:10 04/22/17 06:00 Potassium Level 3.9 mmol/L (3.5-5.1) Magnesium Level 2.3 mg/dL (1.8-2.4) Heparin Anti-Xa Act, Unfractionated < 0.10 IU/mL (0.30-0.70) Microbiology Micro Microbiology 04/17/17 Blood Culture - Preliminary, Resulted NO GROWTH AFTER 4 DAYS Physical Exam HEENT: Neck Supple W Full Motion Chest: Symmetric LUNGS: Clear to Auscultation, Other Heart: S1S2, RRR Abdomen: Soft N/T Extremities: 2+ Dorsalis Pedis, No Edema Neurology: alert, follow commands, confused Assessment Assessment 1. VF arrest 2. 3V CAD; LVEF preserved. 3. Cardiogenic shock Recommendations Continue Amio gtt. Convert to oral when able to take PO Add ASA Check lipids Start BB/ZEESHAN with BP consistently adequate Possible CABG following stabilization as per CTS. Continue supportive care. PAN BETH MD 04/22/171946: CARDIO Progress Notes Plan Plan Patient seen and examined. Agree with above nurse practitioner note. No acute events overnight. He tolerated introverted balloon pump removal well. On examination today he continues to be labile with his mentation. His cognition is not quite yet back to normal. He is frail and without any edema today. Medications reviewed. We will stop amiodarone tomorrow. He likely is a poor candidate for bypass but will await CT surgery evaluation and final recommendations. Discussed with family. JUAN DIEGO RANGEL APRN Apr 22, 2017 15:55 PAN BETH MD Apr 22, 2017 19:47
--- NOTE | 2017-04-22 16:53 | PDOC ---
PROGRESS NOTES Subjective Subjective confused about last week's events Objective Objective Vital Signs Date Time Temp Pulse Resp B/P (MAP) Pulse Ox O2 Delivery O2 Flow Rate FiO2 04/22/17 16:00 Room Air 04/22/17 12:00 98.2 66 22 131/71 (91) 97 98.2 04/22/17 06:00 1.0 Intake and Output 04/22/17 06:59 Intake Total 4014 ml Output Total 1685 ml Balance 2329 ml Intake Oral 0 ml IV Total 4014 ml Output Urine Total 1685 ml Physical Exam Abdomen: Normal bowel sounds, Soft Heart: Normal S1, Normal S2 Extremities: No edema General: Alert, Cooperative HEENT: Atraumatic Lungs: Other (sl diminished in bases anteriorly; coarse) Neck: Supple Neuro: Normal speech Psych/Mental Status: Mood NL Assessment Assessment Problems Medical Problems: (1) STEMI (ST elevation myocardial infarction) Status: Acute 1. 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 Amaya Szymanski to see on Tuesday for determine surgical candidacy Comment Review of Relevant I have reviewed the following items erna (where applicable) has been applied. Labs Laboratory Tests Test 04/21/17 05:40 04/21/17 13:41 04/21/17 18:10 04/22/17 06:00 White Blood Count 9.2 x10^3/uL (4.0-11.0) Red Blood Count 3.13 x10^6/uL (4.30-5.70) Hemoglobin 11.2 g/dL (13.0-17.5) Hematocrit 31.9 % (39.0-53.0) Mean Corpuscular Volume 102 fL (79-100) Mean Corpuscular Hemoglobin 36 pg (25-35) Mean Corpuscular Hemoglobin Concent 35 g/dL (31-37) Red Cell Distribution Width 13.8 % (11.5-14.5) Platelet Count 73 x10^3/uL (140-400) Neutrophils (%) (Auto) 84 % (31-73) Lymphocytes (%) (Auto) 8 % (24-48) Monocytes (%) (Auto) 8 % (0-9) Eosinophils (%) (Auto) 0 % (0-3) Basophils (%) (Auto) 0 % (0-3) Neutrophils # (Auto) 7.7 x10^3uL (1.8-7.7) Lymphocytes # (Auto) 0.8 x10^3/uL (1.0-4.8) Monocytes # (Auto) 0.7 x10^3/uL (0.0-1.1) Eosinophils # (Auto) 0.0 x10^3/uL (0.0-0.7) Basophils # (Auto) 0.0 x10^3/uL (0.0-0.2) Heparin Anti-Xa Act, Unfractionated 0.31 IU/mL (0.30-0.70) < 0.10 IU/mL (0.30-0.70) Sodium Level 141 mmol/L (136-145) Potassium Level 3.0 mmol/L (3.5-5.1) 3.9 mmol/L (3.5-5.1) Chloride Level 110 mmol/L (98-107) Carbon Dioxide Level 26 mmol/L (21-32) Anion Gap 5 (6-14) Blood Urea Nitrogen 8 mg/dL (8-26) Creatinine 0.5 mg/dL (0.7-1.3) Estimated GFR (Cockcroft-Gault) 164.9 Glucose Level 104 mg/dL (70-99) Calcium Level 6.8 mg/dL (8.5-10.1) Magnesium Level 1.9 mg/dL (1.8-2.4) 2.3 mg/dL (1.8-2.4) Activated Clotting Time 160 sec (92-181) Laboratory Tests Test 04/21/17 18:10 04/22/17 06:00 Potassium Level 3.9 mmol/L (3.5-5.1) Magnesium Level 2.3 mg/dL (1.8-2.4) Heparin Anti-Xa Act, Unfractionated < 0.10 IU/mL (0.30-0.70) Microbiology 04/17/17 Blood Culture - Preliminary, Resulted NO GROWTH AFTER 4 DAYS Medications Current Medications Heparin Sodium (Porcine) (Heparin Sodium) 10,000 unit G3-Compring ONCE .ROUTE ; Start 04/17/17 at 19:03; Stop 04/17/17 at 19:04; Status DC Heparin Sodium (Porcine) (Heparin Sodium) 4,000 unit 1X ONCE IV Last administered on 04/17/17 19:05; Start 04/17/17 at 19:15; Stop 04/17/17 at 19:49; Status DC Sodium Chloride 1,000 ml @ 1,000 mls/hr Q1H IV Last administered on 04/17/17 19:07; Start 04/17/17 at 19:07; Stop 04/17/17 at 20:06; Status DC Midazolam HCl 100 ml @ As Directed STK-MED ONCE IV ; Start 04/17/17 at 19:15; Stop 04/17/17 at 19:16; Status DC Etomidate (Amidate) 20 mg STK-MED ONCE IV ; Start 04/17/17 at 19:15; Stop at 19:16; Status DC Succinylcholine Chloride (Anectine) 200 mg STK-MED ONCE .ROUTE ; Start 04/17/17 at 19:16; Stop 04/17/17 at 19:17; Status DC Heparin Sodium/ Sodium Chloride 1,500 ml @ As Directed STK-MED ONCE .ROUTE ; Start 04/17/17 at 19:24; Stop 04/17/17 at 19:25; Status DC Lidocaine HCl 20 ml STK-MED ONCE .ROUTE ; Start 04/17/17 at 19:24; Stop 04/17/17 at 19:25; Status DC Iodixanol (Visipaque 320) 100 ml STK-MED ONCE .ROUTE ; Start 04/17/17 at 19:24; Stop 04/17/17 at 19:25; Status DC Dopamine HCl/ Dextrose 250 ml @ 0 mls/hr CONT PRN IV SEE I/O RECORD Last administered on 04/17/17 19:32; Start 04/17/17 at 19:30; Stop 04/17/17 at 20:54; Status DC Dopamine HCl/ Dextrose 250 ml @ As Directed STK-MED ONCE IV ; Start 04/17/17 at 19:30; Stop 04/17/17 at 19:31; Status DC Ondansetron HCl (Zofran) 4 mg PRN Q8HRS PRN IV NAUSEA/VOMITING; Start 04/17/17 at 19:30; Stop 04/18/17 at 19:29; Status DC Sodium Chloride 1,000 ml @ 100 mls/hr Q10H IV Last administered on 04/18/17 12 :35; Start 04/17/17 at 19:30; Stop 04/18/17 at 19:29; Status DC Acetaminophen (Tylenol) 650 mg PRN Q4HRS PRN PO FEVER; Start 04/17/17 at 19:30; Stop 04/18/17 at 19:29; Status DC Heparin Sodium (Porcine) (Heparin Sodium) 10,000 unit STK-MED ONCE .ROUTE ; Start 04/17/17 at 20:16; Stop 04/17/17 at 20:17; Status DC Tirofiban/Sodium Chloride 0 ml @ As Directed STK-MED ONCE IV ; Start 04/17/17 at 20:16; Stop 04/17/17 at 20:17; Status DC Famotidine (Pepcid) 20 mg QHS IVP Last administered on 04/17/17 22:30; Start at 21:00; Stop 04/19/17 at 08:05; Status DC Etomidate (Amidate) 20 mg 1X ONCE IV Last administered on 04/17/17 19:00; Start 04/17/17 at 20:30; Stop 04/17/17 at 21:05; Status DC Succinylcholine Chloride (Anectine) 100 mg 1X ONCE IV Last administered on 04/17 19:00; Start 04/17/17 at 20:30; Stop 04/17/17 at 21:07; Status DC Lidocaine HCl/ Dextrose 500 ml @ 0 mls/hr 1X ONCE IV Last administered on 18:55; Start 04/17/17 at 20:30; Stop 04/17/17 at 21:08; Status DC Dopamine HCl/ Dextrose 250 ml @ 0 mls/hr CONT PRN IV SEE I/O RECORD Last administered on 04/20/17 09:36; Start 04/17/17 at 20:30 Heparin Sodium/ Dextrose 500 ml @ As Directed STK-MED ONCE IV ; Start 04/17/17 at 20:43; Stop 04/17/17 at 20:44; Status DC Heparin Sodium/ Dextrose 500 ml @ 0 mls/hr CONT PRN IV SEE I/O RECORD Last administered on 04/19/17 01:48; Start 04/17/17 at 20:45; Stop 04/19/17 at 16:41; Status DC Midazolam HCl (Versed) 5 mg 1X ONCE IV Last administered on 04/17/17 19:17; Start 04/17/17 at 21:00; Stop 04/17/17 at 21:07; Status DC Heparin Sodium (Porcine) (Heparin Sodium) 2,000 unit 1X ONCE IV Last administered on 04/17/17 20:59; Start 04/17/17 at 21:00; Stop 04/17/17 at 21:06; Status DC Iodixanol (Visipaque 320) 134 ml 1X ONCE IART Last administered on 04/17/17 20 :58; Start 04/17/17 at 21:00; Stop 04/17/17 at 21:04; Status DC Lidocaine HCl 20 ml 1X ONCE IJ Last administered on 04/17/17 20:58; Start 04/17 at 21:00; Stop 04/17/17 at 21:08; Status DC Fentanyl Citrate 30 ml @ As Directed STK-MED ONCE IV ; Start 04/17/17 at 21:09; Stop 04/17/17 at 21:10; Status DC Sodium Chloride 1,000 ml @ 1,000 mls/hr Q1H IV Last administered on 04/17/17 23:30; Start 04/17/17 at 21:30; Stop 04/18/17 at 03:42; Status DC Fentanyl Citrate (Fentanyl 2ml Vial) 25 mcg PRN Q30MIN PRN IV SED; Start at 21:30; Stop 04/21/17 at 14:35; Status DC Lorazepam (Ativan) 1 mg PRN Q30MIN PRN IV SEDATION Last administered on 20:49; Start 04/17/17 at 21:30; Stop 04/20/17 at 21:45; Status DC Fentanyl Citrate 30 ml @ 2.5 mls/hr CONT PRN PRN IV IVF Last administered on 13:30; Start 04/17/17 at 21:30; Stop 04/21/17 at 11:35; Status DC Propofol 100 ml @ 0 mls/hr CONT PRN IV SEE I/O RECORD Last administered on 09:26; Start 04/17/17 at 21:30; Stop 04/21/17 at 11:35; Status DC Vecuronium Grimes (Norcuron Bolus) DOSE AT 0.1 mg/kg PRN Q30MIN PRN IV SHIVERING Last administered on 04/18/17 16:00; Start 04/17/17 at 21:30; Stop 04/21 at 11:35; Status DC Meperidine HCl (Demerol) 12.5 mg PRN Q30MIN PRN IV SHIVERING Last administered on 04/18/17 04:17; Start 04/17/17 at 21:30; Stop 04/18/17 at 04:18; Status DC Multi-Ingred Cream/Lotion/Oil/ Oint (Artificial Tears Eye Oint) 1 balaji PRN Q6HRS PRN OU 0.5 INCH FOR DRY EYE Last administered on 04/18/17 23:57; Start at 21:30; Stop 04/21/17 at 14:35; Status DC Famotidine (Pepcid) 20 mg BID IVP Last administered on 04/21/17 09:00; Start at 09:00; Stop 04/21/17 at 14:35; Status DC Aspirin (Aspirin) 300 mg DAILY [place] Last administered on 04/21/17 09:00; Start at 09:00; Stop 04/21/17 at 14:35; Status DC Sodium Chloride (Normal Saline Flush) 3 ml QSHIFT PRN IV AFTER MEDS AND BLOOD DRAWS; Start 04/17/17 at 21:30; Stop 04/21/17 at 14:35; Status DC Acetaminophen (Tylenol) 650 mg Q6HRS NG ; Start 04/18/17 at 00:00; Stop 04/18/17 at 23:59; Status DC Acetaminophen (Acetaminophen Supp) 650 mg PRN Q6HRS PRN WI MILD PAIN / TEMP Last administered on 04/19/17 12:20; Start 04/18/17 at 21:30; Stop 04/21/17 at 14: 35; Status DC Acetaminophen (Tylenol) 650 mg PRN Q6HRS PRN NG MILD PAIN / TEMP; Start at 21:30; Stop 04/21/17 at 14:35; Status DC Info 1 ea DAILY PRN MC PER PROTOCOL; Start 04/19/17 at 21:30; Stop 04/21/17 at 14 :35; Status DC Heparin Sodium/ Dextrose 500 ml @ 0 mls/hr CONT PRN IV SEE I/O RECORD; Start at 21:30; Stop 04/19/17 at 07:26; Status DC Heparin Sodium (Porcine) (Heparin Sodium) 1,450 unit PRN Q6HRS PRN IV FOR UFH LEVEL LESS THAN 0.2; Start 04/17/17 at 21:30; Stop 04/19/17 at 16:41; Status DC Sodium Chloride 1,000 ml @ 60 mls/hr [id number] IV Last administered on 04/19/17 10:21; Start 04/17/17 at 21:45; Stop 04/19/17 at 18:15; Status DC Midazolam HCl 100 ml @ 0 mls/hr CONT PRN IV SEE I/O RECORD; Start 04/17/17 at 22 :00; Stop 04/21/17 at 11:35; Status DC Sodium Bicarbonate 100 meq 1X ONCE IV Last administered on 04/18/17 02:02; Start 04/18/17 at 00:00; Stop 04/18/17 at 00:01; Status DC Amiodarone HCl 900 mg/Dextrose 518 ml @ 0 mls/hr 1X ONCE IV Last administered on 04/18/17 08:00; Start 04/18/17 at 08:00; Stop 04/18/17 at 08:01; Status DC Pneumococcal Polyvalent Vaccine (Do NOT chart on this placeholder) 1 each PRN DAILY PRN MC UNABLE TO RESPOND; Start 04/18/17 at 08:45; Status Cancel Amiodarone HCl 900 mg/Dextrose 518 ml @ 34.53 mls/ hr CONT PRN IV SEE I/O RECORD; Start 04/18/17 at 09:45; Stop 04/20/17 at 02:29; Status DC Potassium Chloride 50 ml @ 50 mls/hr 1X ONCE IV ; Start 04/18/17 at 10:30; Stop 04/18/17 at 10:30; Status DC Potassium Chloride 100 ml @ 100 mls/hr Q1H IV Last administered on 04/18/17 11 :39; Start 04/18/17 at 10:30; Stop 04/18/17 at 12:29; Status DC Ephedrine Sulfate 50 mg STK-MED ONCE IV ; Start 04/18/17 at 14:56; Stop 04/18/17 at 14:57; Status DC Potassium Chloride 50 ml @ 50 mls/hr Q1H IV Last administered on 04/18/17 19:23 ; Start 04/18/17 at 17:30; Stop 04/18/17 at 20:29; Status DC Magnesium Sulfate/ Dextrose 100 ml @ 100 mls/hr 1X ONCE IV Last administered on 04/18/17 17:10; Start 04/18/17 at 17:30; Stop 04/18/17 at 18:29; Status DC Calcium Gluconate (Calcium Gluconate) 1,000 mg 1X ONCE IV Last administered on 04/18/17 17:08; Start 04/18/17 at 17:15; Stop 04/18/17 at 17:16; Status DC Epinephrine HCl (EPINEPHrine SYRINGE) 1 mg STK-MED ONCE .ROUTE ; Start 04/17/17 at 17:03; Stop 04/18/17 at 17:03; Status DC Info (Anti-Coagulation Monitoring By Pharmacy) 1 each PRN DAILY PRN MC SEE COMMENTS Last administered on 04/22/17 13:12; Start 04/19/17 at 08:15 Chlorhexidine Gluconate (Peridex) 15 ml BID MM Last administered on 04/20/17 21 :47; Start 04/19/17 at 09:00; Stop 04/21/17 at 11:35; Status DC Amiodarone HCl 450 mg/Dextrose 259 ml @ 17.26 mls/ hr CONT PRN IV SEE I/O RECORD Last administered on 04/22/17 12:50; Start 04/19/17 at 13:00 Midazolam HCl (Versed) 5 mg STK-MED ONCE .ROUTE ; Start 04/19/17 at 16:21; Stop 04/19/17 at 16:22; Status DC Midazolam HCl (Versed) 1 mg PRN Q2HR PRN IV SEDATION FOR VENT; Start 04/19/17 at 16:30; Stop 04/21/17 at 11:35; Status DC Fentanyl Citrate (Fentanyl 2ml Vial) 25 mcg PRN Q2HR PRN IV PAIN; Start at 16:30 Fentanyl Citrate (Fentanyl 2ml Vial) 50 mcg PRN Q2HR PRN IV PAIN Last administered on 04/22/17 02:56; Start 04/19/17 at 16:30 Midazolam HCl (Versed) 2 mg PRN Q2HR PRN IV SEDATION FOR VENT Last administered on 04/20/17 07:24; Start 04/19/17 at 16:30 Heparin Sodium/ Dextrose 500 ml @ 0 mls/hr CONT PRN IV SEE I/O RECORD Last administered on 04/20/17 07:26; Start 04/19/17 at 16:45 Heparin Sodium (Porcine) (Heparin Sodium) 1,450 unit PRN Q6HRS PRN IV FOR UFH LEVEL LESS THAN 0.2 Last administered on 04/19/17 20:56; Start 04/19/17 at 16:45 Midazolam HCl (Versed) 2 mg 1X ONCE IV Last administered on 04/19/17 16:45; Start 04/19/17 at 16:45; Stop 04/19/17 at 16:46; Status DC Sodium Chloride 1,000 ml @ 100 mls/hr Q10H IV Last administered on 04/21/17 03 :38; Start 04/19/17 at 18:15; Stop 04/21/17 at 11:35; Status DC Magnesium Sulfate/ Dextrose 50 ml @ 25 mls/hr 1X ONCE IV Last administered on 04/20/17 12:22; Start 04/20/17 at 11:45; Stop 04/20/17 at 13:44; Status DC Haloperidol Lactate (Haldol) 5 mg 1X ONCE IVP ; Start 04/20/17 at 22:00; Stop at 22:01; Status DC Lorazepam (Ativan) 1 mg PRN Q3HRS PRN IV ANXIETY / AGITATION Last administered on 04/22/17 02:57; Start 04/20/17 at 21:30 Potassium Chloride 50 ml @ 25 mls/hr Q2H IV Last administered on 04/21/17 15:07 ; Start 04/21/17 at 07:00; Stop 04/21/17 at 14:59; Status DC Pneumococcal Polyvalent Vaccine (Pneumovax 23) 0.5 ml ONCE ONCE VAX IM ; Start 04/22/17 at 09:00; Stop 04/22/17 at 09:01; Status DC Magnesium Sulfate/ Dextrose 100 ml @ 100 mls/hr 1X ONCE IV ; Start 04/21/17 at 13:00; Stop 04/21/17 at 13:59; Status Cancel Magnesium Sulfate/ Dextrose 100 ml @ 25 mls/hr 1X ONCE IV ; Start 04/21/17 at 13:00; Stop 04/21/17 at 16:59; Status Cancel Magnesium Sulfate/ Dextrose 50 ml @ 25 mls/hr 1X ONCE IV Last administered on 04/21/17 15:06; Start 04/21/17 at 13:00; Stop 04/21/17 at 14:59; Status DC Sodium Chloride 1,000 ml @ 100 mls/hr Q10H IV Last administered on 04/22/17 09 :36; Start 04/21/17 at 14:45; Stop 04/22/17 at 11:20; Status DC Midazolam HCl (Versed) 5 mg STK-MED ONCE .ROUTE ; Start 04/21/17 at 17:29; Stop 04/21/17 at 17:30; Status DC Midazolam HCl (Versed) 5 mg 1X ONCE IV Last administered on 04/21/17 19:15; Start 04/21/17 at 19:15; Stop 04/21/17 at 19:16; Status DC Amino Acids/ Glycerin/ Electrolytes 1,000 ml @ 75 mls/hr [id number] IV Last administered on 04/22/17 13:34; Start 04/22/17 at 11:30 Aspirin (Aspirin) 300 mg DAILY [place] ; Start 04/23/17 at 09:00 Active Scripts Active Reported [No home meds] Vitals/I & O Vital Sign - Last 24 Hours 04/21/17 04/21/17 04/21/17 04/21/17 17:00 17:15 17:30 17:45 Pulse 70 70 78 70 Resp 22 24 31 32 B/P (MAP) 167/82 (110) 131/52 (78) 125/84 (98) 122/71 (88) Pulse Ox 99 99 99 100 O2 Delivery Room Air Nasal Cannula Nasal Cannula Nasal Cannula O2 Flow Rate 3.0 3.0 3.0 04/21/17 04/21/17 04/21/17 04/21/17 18:00 18:15 18:30 19:00 Pulse 68 64 66 64 Resp 32 33 29 28 B/P (MAP) 125/66 (85) 125/68 (87) 117/62 (80) 116/71 (86) Pulse Ox 100 100 100 100 O2 Delivery Nasal Cannula Nasal Cannula Nasal Cannula Nasal Cannula O2 Flow Rate 1.0 1.0 1.0 1.0 04/21/17 04/21/17 04/21/17 04/21/17 19:30 19:37 20:00 21:00 Temp 97.9 97.9 Pulse 62 61 77 Resp 33 30 26 B/P (MAP) 129/72 (91) 132/69 (90) 143/71 (95) Pulse Ox 100 100 100 O2 Delivery Nasal Cannula Nasal Cannula Nasal Cannula Nasal Cannula O2 Flow Rate 1.0 1.0 1.0 1.0 04/21/17 04/21/17 04/21/17 04/22/17 22:00 23:00 23:47 00:00 Temp 97.6 97.6 Pulse 66 72 68 Resp 23 26 24 24 B/P (MAP) 121/74 (90) 119/70 (86) 110/64 (79) Pulse Ox 100 100 98 98 O2 Delivery Nasal Cannula Nasal Cannula Nasal Cannula Nasal Cannula O2 Flow Rate 1.0 1.0 1.0 1.0 04/22/17 04/22/17 04/22/17 04/22/17 00:00 00:19 01:00 02:00 Pulse 70 61 Resp 24 22 B/P (MAP) 110/58 (75) 105/57 (73) Pulse Ox 95 99 O2 Delivery Nasal Cannula Room Air Room Air O2 Flow Rate 1.0 1.0 04/22/17 04/22/17 04/22/17 04/22/17 02:56 02:59 03:30 04:00 Pulse 81 Resp 27 26 24 B/P (MAP) 136/75 (95) Pulse Ox 94 95 94 O2 Delivery Room Air Room Air Room Air Room Air 04/22/17 04/22/17 04/22/17 04/22/17 04:01 04:58 06:00 07:00 Temp 98.2 98.1 98.2 98.1 Pulse 66 67 74 66 Resp 26 37 18 B/P (MAP) 107/66 (80) 120/73 (89) 136/78 (97) 126/69 (88) Pulse Ox 95 99 97 95 O2 Delivery Room Air Nasal Cannula Nasal Cannula Room Air O2 Flow Rate 1.0 1.0 04/22/17 04/22/17 04/22/17 04/22/17 08:00 09:00 10:00 12:00 Temp 98.2 98.2 Pulse 61 62 66 Resp 22 22 22 B/P (MAP) 138/79 (98) 127/82 (97) 131/71 (91) Pulse Ox 97 97 97 O2 Delivery Room Air Room Air Room Air Room Air 04/22/17 04/22/17 12:00 16:00 O2 Delivery Room Air Room Air Intake and Output 04/21/17 04/21/17 04/22/17 14:59 22:59 06:59 Intake Total 347 ml 550 ml 3117 ml Output Total 695 ml 530 ml 460 ml Balance -348 ml 20 ml 2657 ml Nutrition Consultation Dietary Evaluation: Comments: Continue PPN @ 75 ml/hr to meet short term nutrition needs Rec. dobhoff TF's if unable to pass speech evaluation or advance diet Expected Outcomes/Goals: diet advancement vs. initiation of tube feeds Interpretation of weight loss: >5% in 1 month Malnutrition Findings: Food and Nutrition Intake (Sev: <50% est energy req 5days Body Fat Depletion (Non Severe: Mild Depletion Reduced Cost Accounting Manager Strength: N/A Weight Status: Underweight AARTI LAZO MEDICAL VIDEOGRAPHER Apr 22, 2017 16:53
[2017-04-23] VITALS (13 sets, daily range): BP systolic 93–133; BP diastolic 53–92
[2017-04-23] MEDS: AMINO AC 3%/ELECTROLYTE/GLYCER 1,000 ML IV SCH ×2 (01:36→15:13)
[2017-04-23] MEDS: AMIODARONE 450 MG in IV DEXTROSE 5% 250 ML IV PRN (05:16)
[2017-04-23 05:43] LABS: CHOLESTEROL/HDL RATIO 2.8
[2017-04-23] MEDS ORDERED: HALOPERIDOL LACTATE 5 MG/ML VIAL. IVP ONE (07:00)
--- NOTE | 2017-04-23 08:06 | RAD ---
Examination: Single frontal view the chest. History: History of respiratory failure. Comparison: 04/22/2017. Findings: The cardiomediastinal silhouette grossly appears unchanged. Moderate prominent appearing bilateral interstitial lung markings with some patchy airspace opacities identified in the bilateral lungs slightly improved compared to prior exam. Trace bilateral pleural effusions. Impression: Mild improvement in moderate bilateral congestive changes and patchy airspace opacities.
[2017-04-23] MEDS: ANTI-COAG MONITOR BY PHARMACY. MC PRN (08:11)
--- NOTE | 2017-04-23 08:25 | PDOC ---
CARDIOLOGY PROGRESS NOTE SUBJECTIVE: No acute events overnight. OBJECTIVE: Vital SIgns: Vital Signs Date Time Temp Pulse Resp B/P (MAP) Pulse Ox O2 Delivery O2 Flow Rate FiO2 04/23/17 06:00 85 25 133/83 (100) 95 Nasal Cannula 2.0 04/23/17 04:00 97.7 97.7 I & O Intake and Output 04/23/17 07:00 Output Total 1675 ml Balance -1675 ml Output Urine Total 1675 ml Objective: Gen: Mild confusion Normal heart tones. Lungs with poor aeration. No edema. No clear neurologic deficits. He is coughing spontaneously while sleeping and appears to be aspirating CURRENT MEDICATIONS: asa per rectum. amio gtt ASSESSMENT: 1. cardiac arrest, 3V CAD 2. Cardiogenic shock - resolved. Problems: PLAN: 1. Unable to take meds by mouth. Stop amiodarone given he has been on IV dosing for 1 week. 2. Continue Aspirin 3. Await CT surgery eval. 4. Will order IV lasix given chest XR and coughing/edema. 5. Check labs. 6. Repeat limited echo to evaluate for LV function post code. Possible aspiration - await repeat evaluation. PAN BETH MD Apr 23, 2017 08:25
[2017-04-23 09:26] LABS: BASO # 0.1 x10^3/uL (0.0-0.2); BASO % 1 % (0-3); EOS % 0 % (0-3); HEMATOCRIT 27.2 % (39.0-53.0); HEMOGLOBIN 9.4 g/dL (13.0-17.5); LYMPH # 1.4 x10^3/uL (1.0-4.8); LYMPH % 10 % (24-48); MEAN CORPUSCULAR HEMOGLOBIN 36 pg (25-35); MEAN CORPUSCULAR HGB CONC 35 g/dL (31-37); MEAN CORPUSCULAR VOLUME 103 fL (79-100); MONO % 14 % (0-9); NEUT % 75 % (31-73); PLATELET COUNT 135 x10^3/uL (140-400); RED BLOOD COUNT 2.66 x10^6/uL (4.30-5.70); RED CELL DISTRIBUTION WIDTH 13.6 % (11.5-14.5); WHITE BLOOD COUNT 13.5 x10^3/uL (4.0-11.0)
[2017-04-23 09:28] LABS: CALCIUM 7.5 mg/dL (8.5-10.1); CREATININE 0.6 mg/dL (0.7-1.3); GFR 133.6; MAGNESIUM 2.1 mg/dL (1.8-2.4); POTASSIUM 3.7 mmol/L (3.5-5.1)
[2017-04-23] MEDS: FUROSEMIDE 40 MG/4 ML VIAL. IVP SCH ×2 (10:22→14:59)
[2017-04-23] MEDS: ASPIRIN 300 MG SUPP.RECT PR SCH (10:22)
[2017-04-23] MEDS ORDERED: HALOPERIDOL LACTATE 5 MG/ML VIAL. IVP PRN (10:30)
--- NOTE | 2017-04-23 11:16 | PDOC ---
PROGRESS NOTES Chief Complaint Chief Complaint 1. Post code 2. cardiac arrest, vifb, 2/2 acute NH likely, possible STEMI 3. ACUTE resp failure with cardiac arrest 4. hypokalemia 5. shock ,cardiogenic likely 6. leukocytosis, reactive 7. AMS, from cardiac arrest 8. Multivessel disease including left main History of Present Illness History of Present Illness Patient was seen in the ICU. Patient was sitting in chair. Patient is opening eyes and smiling spontaneously as well as responding to speech. Patient is seen at bedside with loved one. Vitals Vitals Vital Signs Date Time Temp Pulse Resp B/P (MAP) Pulse Ox O2 Delivery O2 Flow Rate FiO2 04/23/17 08:00 Nasal Cannula 2.0 04/23/17 08:00 97.8 61 28 108/69 (82) 100 97.8 Physical Exam General: Alert, Cooperative Heart: Normal S1, Normal S2 Lungs: Crackles Abdomen: Normal bowel sounds, Soft Extremities: No edema Skin: Other (significant ecchymosis to the right forearm) Labs LABS Laboratory Tests Test 04/23/17 04:45 White Blood Count 13.5 x10^3/uL (4.0-11.0) Red Blood Count 2.66 x10^6/uL (4.30-5.70) Hemoglobin 9.4 g/dL (13.0-17.5) Hematocrit 27.2 % (39.0-53.0) Mean Corpuscular Volume 103 fL (79-100) Mean Corpuscular Hemoglobin 36 pg (25-35) Mean Corpuscular Hemoglobin Concent 35 g/dL (31-37) Red Cell Distribution Width 13.6 % (11.5-14.5) Platelet Count 135 x10^3/uL (140-400) Neutrophils (%) (Auto) 75 % (31-73) Lymphocytes (%) (Auto) 10 % (24-48) Monocytes (%) (Auto) 14 % (0-9) Eosinophils (%) (Auto) 0 % (0-3) Basophils (%) (Auto) 1 % (0-3) Neutrophils # (Auto) 10.1 x10^3uL (1.8-7.7) Lymphocytes # (Auto) 1.4 x10^3/uL (1.0-4.8) Monocytes # (Auto) 1.8 x10^3/uL (0.0-1.1) Eosinophils # (Auto) 0.0 x10^3/uL (0.0-0.7) Basophils # (Auto) 0.1 x10^3/uL (0.0-0.2) Sodium Level 142 mmol/L (136-145) Potassium Level 3.7 mmol/L (3.5-5.1) Chloride Level 108 mmol/L (98-107) Carbon Dioxide Level 22 mmol/L (21-32) Anion Gap 12 (6-14) Blood Urea Nitrogen 17 mg/dL (8-26) Creatinine 0.6 mg/dL (0.7-1.3) Estimated GFR (Cockcroft-Gault) 133.6 Glucose Level 110 mg/dL (70-99) Calcium Level 7.5 mg/dL (8.5-10.1) Magnesium Level 2.1 mg/dL (1.8-2.4) Triglycerides Level 124 mg/dL (0-150) Cholesterol Level 133 mg/dL (0-200) LDL Cholesterol, Calculated 61 mg/dL (0-100) VLDL Cholesterol, Calculated 25 mg/dL (0-40) Non-HDL Cholesterol Calculated 86 mg/dL (0-129) HDL Cholesterol 47 mg/dL (40-60) Cholesterol/HDL Ratio 2.8 Review of Systems Review of Systems Patient does not appear to be in acute distress; patient smiling and responding to speech, no nausea, vomiting Assessment and Plan Assessmemt and Plan Assessment: 1. Post code 2. cardiac arrest, vifb, 2/2 acute NH likely, possible STEMI 3. ACUTE resp failure with cardiac arrest 4. hypokalemia 5. shock ,cardiogenic likely 6. leukocytosis, reactive 7. AMS, from cardiac arrest 8. Multivessel disease including left main Plan: 1 Continuing the patient's ICU care [address] and monitoring urine output 3 DVT and GI prophylaxis 4 Continuing to electrolytes 5 Appreciate subspecialty input and assistance 6 Discussed plan with nursing 7 Cards following and input regarding CABG possible in near future 8 Continuing procal for nutrition 9 Halidol for AMS - Q8H prn Problems: Comment Review of Relevant I have reviewed the following items erna (where applicable) has been applied. Labs Laboratory Tests Test 04/21/17 13:41 04/21/17 18:10 04/22/17 06:00 7/8/17 04:45 Activated Clotting Time 160 sec (92-181) Potassium Level 3.9 mmol/L (3.5-5.1) 3.7 mmol/L (3.5-5.1) Magnesium Level 2.3 mg/dL (1.8-2.4) 2.1 mg/dL (1.8-2.4) Heparin Anti-Xa Act, Unfractionated < 0.10 IU/mL (0.30-0.70) White Blood Count 13.5 x10^3/uL (4.0-11.0) Red Blood Count 2.66 x10^6/uL (4.30-5.70) Hemoglobin 9.4 g/dL (13.0-17.5) Hematocrit 27.2 % (39.0-53.0) Mean Corpuscular Volume 103 fL (79-100) Mean Corpuscular Hemoglobin 36 pg (25-35) Mean Corpuscular Hemoglobin Concent 35 g/dL (31-37) Red Cell Distribution Width 13.6 % (11.5-14.5) Platelet Count 135 x10^3/uL (140-400) Neutrophils (%) (Auto) 75 % (31-73) Lymphocytes (%) (Auto) 10 % (24-48) Monocytes (%) (Auto) 14 % (0-9) Eosinophils (%) (Auto) 0 % (0-3) Basophils (%) (Auto) 1 % (0-3) Neutrophils # (Auto) 10.1 x10^3uL (1.8-7.7) Lymphocytes # (Auto) 1.4 x10^3/uL (1.0-4.8) Monocytes # (Auto) 1.8 x10^3/uL (0.0-1.1) Eosinophils # (Auto) 0.0 x10^3/uL (0.0-0.7) Basophils # (Auto) 0.1 x10^3/uL (0.0-0.2) Sodium Level 142 mmol/L (136-145) Chloride Level 108 mmol/L (98-107) Carbon Dioxide Level 22 mmol/L (21-32) Anion Gap 12 (6-14) Blood Urea Nitrogen 17 mg/dL (8-26) Creatinine 0.6 mg/dL (0.7-1.3) Estimated GFR (Cockcroft-Gault) 133.6 Glucose Level 110 mg/dL (70-99) Calcium Level 7.5 mg/dL (8.5-10.1) Triglycerides Level 124 mg/dL (0-150) Cholesterol Level 133 mg/dL (0-200) LDL Cholesterol, Calculated 61 mg/dL (0-100) VLDL Cholesterol, Calculated 25 mg/dL (0-40) Non-HDL Cholesterol Calculated 86 mg/dL (0-129) HDL Cholesterol 47 mg/dL (40-60) Cholesterol/HDL Ratio 2.8 Laboratory Tests Test 04/23/17 04:45 White Blood Count 13.5 x10^3/uL (4.0-11.0) Red Blood Count 2.66 x10^6/uL (4.30-5.70) Hemoglobin 9.4 g/dL (13.0-17.5) Hematocrit 27.2 % (39.0-53.0) Mean Corpuscular Volume 103 fL (79-100) Mean Corpuscular Hemoglobin 36 pg (25-35) Mean Corpuscular Hemoglobin Concent 35 g/dL (31-37) Red Cell Distribution Width 13.6 % (11.5-14.5) Platelet Count 135 x10^3/uL (140-400) Neutrophils (%) (Auto) 75 % (31-73) Lymphocytes (%) (Auto) 10 % (24-48) Monocytes (%) (Auto) 14 % (0-9) Eosinophils (%) (Auto) 0 % (0-3) Basophils (%) (Auto) 1 % (0-3) Neutrophils # (Auto) 10.1 x10^3uL (1.8-7.7) Lymphocytes # (Auto) 1.4 x10^3/uL (1.0-4.8) Monocytes # (Auto) 1.8 x10^3/uL (0.0-1.1) Eosinophils # (Auto) 0.0 x10^3/uL (0.0-0.7) Basophils # (Auto) 0.1 x10^3/uL (0.0-0.2) Sodium Level 142 mmol/L (136-145) Potassium Level 3.7 mmol/L (3.5-5.1) Chloride Level 108 mmol/L (98-107) Carbon Dioxide Level 22 mmol/L (21-32) Anion Gap 12 (6-14) Blood Urea Nitrogen 17 mg/dL (8-26) Creatinine 0.6 mg/dL (0.7-1.3) Estimated GFR (Cockcroft-Gault) 133.6 Glucose Level 110 mg/dL (70-99) Calcium Level 7.5 mg/dL (8.5-10.1) Magnesium Level 2.1 mg/dL (1.8-2.4) Triglycerides Level 124 mg/dL (0-150) Cholesterol Level 133 mg/dL (0-200) LDL Cholesterol, Calculated 61 mg/dL (0-100) VLDL Cholesterol, Calculated 25 mg/dL (0-40) Non-HDL Cholesterol Calculated 86 mg/dL (0-129) HDL Cholesterol 47 mg/dL (40-60) Cholesterol/HDL Ratio 2.8 Microbiology 04/17/17 Blood Culture - Final, Complete NO GROWTH AFTER 5 DAYS Medications Current Medications Heparin Sodium (Porcine) (Heparin Sodium) 10,000 unit STK-MED ONCE .ROUTE ; Start 04/17/17 at 19:03; Stop 04/17/17 at 19:04; Status DC Heparin Sodium (Porcine) (Heparin Sodium) 4,000 unit 1X ONCE IV Last administered on 04/17/17 19:05; Start 04/17/17 at 19:15; Stop 04/17/17 at 19:49; Status DC Sodium Chloride 1,000 ml @ 1,000 mls/hr Q1H IV Last administered on 04/17/17 19:07; Start 04/17/17 at 19:07; Stop 04/17/17 at 20:06; Status DC Midazolam HCl 100 ml @ As Directed STK-MED ONCE IV ; Start 04/17/17 at 19:15; Stop 04/17/17 at 19:16; Status DC Etomidate (Amidate) 20 mg STK-MED ONCE IV ; Start 04/17/17 at 19:15; Stop at 19:16; Status DC Succinylcholine Chloride (Anectine) 200 mg STK-MED ONCE .ROUTE ; Start 04/17/17 at 19:16; Stop 04/17/17 at 19:17; Status DC Heparin Sodium/ Sodium Chloride 1,500 ml @ As Directed STK-MED ONCE .ROUTE ; Start 04/17/17 at 19:24; Stop 04/17/17 at 19:25; Status DC Lidocaine HCl 20 ml STK-MED ONCE .ROUTE ; Start 04/17/17 at 19:24; Stop 04/17/17 at 19:25; Status DC Iodixanol (Visipaque 320) 100 ml STK-MED ONCE .ROUTE ; Start 04/17/17 at 19:24; Stop 04/17/17 at 19:25; Status DC Dopamine HCl/ Dextrose 250 ml @ 0 mls/hr CONT PRN IV SEE I/O RECORD Last administered on 04/17/17 19:32; Start 04/17/17 at 19:30; Stop 04/17/17 at 20:54; Status DC Dopamine HCl/ Dextrose 250 ml @ As Directed STK-MED ONCE IV ; Start 04/17/17 at 19:30; Stop 04/17/17 at 19:31; Status DC Ondansetron HCl (Zofran) 4 mg PRN Q8HRS PRN IV NAUSEA/VOMITING; Start 04/17/17 at 19:30; Stop 04/18/17 at 19:29; Status DC Sodium Chloride 1,000 ml @ 100 mls/hr Q10H IV Last administered on 04/18/17 12 :35; Start 04/17/17 at 19:30; Stop 04/18/17 at 19:29; Status DC Acetaminophen (Tylenol) 650 mg PRN Q4HRS PRN PO FEVER; Start 04/17/17 at 19:30; Stop 04/18/17 at 19:29; Status DC Heparin Sodium (Porcine) (Heparin Sodium) 10,000 unit STK-MED ONCE .ROUTE ; Start 04/17/17 at 20:16; Stop 04/17/17 at 20:17; Status DC Tirofiban/Sodium Chloride 0 ml @ As Directed STK-MED ONCE IV ; Start 04/17/17 at 20:16; Stop 04/17/17 at 20:17; Status DC Famotidine (Pepcid) 20 mg QHS IVP Last administered on 04/17/17 22:30; Start at 21:00; Stop 04/19/17 at 08:05; Status DC Etomidate (Amidate) 20 mg 1X ONCE IV Last administered on 04/17/17 19:00; Start 04/17/17 at 20:30; Stop 04/17/17 at 21:05; Status DC Succinylcholine Chloride (Anectine) 100 mg 1X ONCE IV Last administered on 04/17 19:00; Start 04/17/17 at 20:30; Stop 04/17/17 at 21:07; Status DC Lidocaine HCl/ Dextrose 500 ml @ 0 mls/hr 1X ONCE IV Last administered on 18:55; Start 04/17/17 at 20:30; Stop 04/17/17 at 21:08; Status DC Dopamine HCl/ Dextrose 250 ml @ 0 mls/hr CONT PRN IV SEE I/O RECORD Last administered on 04/20/17 09:36; Start 04/17/17 at 20:30 Heparin Sodium/ Dextrose 500 ml @ As Directed STK-MED ONCE IV ; Start 04/17/17 at 20:43; Stop 04/17/17 at 20:44; Status DC Heparin Sodium/ Dextrose 500 ml @ 0 mls/hr CONT PRN IV SEE I/O RECORD Last administered on 04/19/17 01:48; Start 04/17/17 at 20:45; Stop 04/19/17 at 16:41; Status DC Midazolam HCl (Versed) 5 mg 1X ONCE IV Last administered on 04/17/17 19:17; Start 04/17/17 at 21:00; Stop 04/17/17 at 21:07; Status DC Heparin Sodium (Porcine) (Heparin Sodium) 2,000 unit 1X ONCE IV Last administered on 04/17/17 20:59; Start 04/17/17 at 21:00; Stop 04/17/17 at 21:06; Status DC Iodixanol (Visipaque 320) 134 ml 1X ONCE IART Last administered on 04/17/17 20 :58; Start 04/17/17 at 21:00; Stop 04/17/17 at 21:04; Status DC Lidocaine HCl 20 ml 1X ONCE IJ Last administered on 04/17/17 20:58; Start 04/17 at 21:00; Stop 04/17/17 at 21:08; Status DC Fentanyl Citrate 30 ml @ As Directed STK-MED ONCE IV ; Start 04/17/17 at 21:09; Stop 04/17/17 at 21:10; Status DC Sodium Chloride 1,000 ml @ 1,000 mls/hr Q1H IV Last administered on 04/17/17 23:30; Start 04/17/17 at 21:30; Stop 04/18/17 at 03:42; Status DC Fentanyl Citrate (Fentanyl 2ml Vial) 25 mcg PRN Q30MIN PRN IV SED; Start at 21:30; Stop 04/21/17 at 14:35; Status DC Lorazepam (Ativan) 1 mg PRN Q30MIN PRN IV SEDATION Last administered on 20:49; Start 04/17/17 at 21:30; Stop 04/20/17 at 21:45; Status DC Fentanyl Citrate 30 ml @ 2.5 mls/hr CONT PRN PRN IV IVF Last administered on 13:30; Start 04/17/17 at 21:30; Stop 04/21/17 at 11:35; Status DC Propofol 100 ml @ 0 mls/hr CONT PRN IV SEE I/O RECORD Last administered on 09:26; Start 04/17/17 at 21:30; Stop 04/21/17 at 11:35; Status DC Vecuronium [place] (Norcuron Bolus) DOSE AT 0.1 mg/kg PRN Q30MIN PRN IV SHIVERING Last administered on 04/18/17 16:00; Start 04/17/17 at 21:30; Stop 04/21 at 11:35; Status DC Meperidine HCl (Demerol) 12.5 mg PRN Q30MIN PRN IV SHIVERING Last administered on 04/18/17 04:17; Start 04/17/17 at 21:30; Stop 04/18/17 at 04:18; Status DC Multi-Ingred Cream/Lotion/Oil/ Oint (Artificial Tears Eye Oint) 1 balaji PRN Q6HRS PRN OU 0.5 INCH FOR DRY EYE Last administered on 04/18/17 23:57; Start at 21:30; Stop 04/21/17 at 14:35; Status DC Famotidine (Pepcid) 20 mg BID IVP Last administered on 04/21/17 09:00; Start at 09:00; Stop 04/21/17 at 14:35; Status DC Aspirin (Aspirin) 300 mg DAILY [place] Last administered on 04/21/17 09:00; Start at 09:00; Stop 04/21/17 at 14:35; Status DC Sodium Chloride (Normal Saline Flush) 3 ml QSHIFT PRN IV AFTER MEDS AND BLOOD DRAWS; Start 04/17/17 at 21:30; Stop 04/21/17 at 14:35; Status DC Acetaminophen (Tylenol) 650 mg Q6HRS NG ; Start 04/18/17 at 00:00; Stop 04/18/17 at 23:59; Status DC Acetaminophen (Acetaminophen Supp) 650 mg PRN Q6HRS PRN VA MILD PAIN / TEMP Last administered on 04/19/17 12:20; Start 04/18/17 at 21:30; Stop 04/21/17 at 14: 35; Status DC Acetaminophen (Tylenol) 650 mg PRN Q6HRS PRN NG MILD PAIN / TEMP; Start at 21:30; Stop 04/21/17 at 14:35; Status DC Info 1 ea DAILY PRN MC PER PROTOCOL; Start 04/19/17 at 21:30; Stop 04/21/17 at 14 :35; Status DC Heparin Sodium/ Dextrose 500 ml @ 0 mls/hr CONT PRN IV SEE I/O RECORD; Start at 21:30; Stop 04/19/17 at 07:26; Status DC Heparin Sodium (Porcine) (Heparin Sodium) 1,450 unit PRN Q6HRS PRN IV FOR UFH LEVEL LESS THAN 0.2; Start 04/17/17 at 21:30; Stop 04/19/17 at 16:41; Status DC Sodium Chloride 1,000 ml @ 60 mls/hr [id number] IV Last administered on 04/19/17 10:21; Start 04/17/17 at 21:45; Stop 04/19/17 at 18:15; Status DC Midazolam HCl 100 ml @ 0 mls/hr CONT PRN IV SEE I/O RECORD; Start 04/17/17 at 22 :00; Stop 04/21/17 at 11:35; Status DC Sodium Bicarbonate 100 meq 1X ONCE IV Last administered on 04/18/17 02:02; Start 04/18/17 at 00:00; Stop 04/18/17 at 00:01; Status DC Amiodarone HCl 900 mg/Dextrose 518 ml @ 0 mls/hr 1X ONCE IV Last administered on 04/18/17 08:00; Start 04/18/17 at 08:00; Stop 04/18/17 at 08:01; Status DC Pneumococcal Polyvalent Vaccine (Do NOT chart on this placeholder) 1 each PRN DAILY PRN MC UNABLE TO RESPOND; Start 04/18/17 at 08:45; Status Cancel Amiodarone HCl 900 mg/Dextrose 518 ml @ 34.53 mls/ hr CONT PRN IV SEE I/O RECORD; Start 04/18/17 at 09:45; Stop 04/20/17 at 02:29; Status DC Potassium Chloride 50 ml @ 50 mls/hr 1X ONCE IV ; Start 04/18/17 at 10:30; Stop 04/18/17 at 10:30; Status DC Potassium Chloride 100 ml @ 100 mls/hr Q1H IV Last administered on 04/18/17 11 :39; Start 04/18/17 at 10:30; Stop 04/18/17 at 12:29; Status DC Ephedrine Sulfate 50 mg STK-MED ONCE IV ; Start 04/18/17 at 14:56; Stop 04/18/17 at 14:57; Status DC Potassium Chloride 50 ml @ 50 mls/hr Q1H IV Last administered on 04/18/17 19:23 ; Start 04/18/17 at 17:30; Stop 04/18/17 at 20:29; Status DC Magnesium Sulfate/ Dextrose 100 ml @ 100 mls/hr 1X ONCE IV Last administered on 04/18/17 17:10; Start 04/18/17 at 17:30; Stop 04/18/17 at 18:29; Status DC Calcium Gluconate (Calcium Gluconate) 1,000 mg 1X ONCE IV Last administered on 04/18/17 17:08; Start 04/18/17 at 17:15; Stop 04/18/17 at 17:16; Status DC Epinephrine HCl (EPINEPHrine SYRINGE) 1 mg STK-MED ONCE .ROUTE ; Start 04/17/17 at 17:03; Stop 04/18/17 at 17:03; Status DC Info (Anti-Coagulation Monitoring By Pharmacy) 1 each PRN DAILY PRN MC SEE COMMENTS Last administered on 04/23/17 08:11; Start 04/19/17 at 08:15 Chlorhexidine Gluconate (Peridex) 15 ml BID MM Last administered on 04/20/17 21 :47; Start 04/19/17 at 09:00; Stop 04/21/17 at 11:35; Status DC Amiodarone HCl 450 mg/Dextrose 259 ml @ 17.26 mls/ hr CONT PRN IV SEE I/O RECORD Last administered on 04/23/17 05:16; Start 04/19/17 at 13:00; Stop at 08:11; Status DC Midazolam HCl (Versed) 5 mg STK-MED ONCE .ROUTE ; Start 04/19/17 at 16:21; Stop 04/19/17 at 16:22; Status DC Midazolam HCl (Versed) 1 mg PRN Q2HR PRN IV SEDATION FOR VENT; Start 04/19/17 at 16:30; Stop 04/21/17 at 11:35; Status DC Fentanyl Citrate (Fentanyl 2ml Vial) 25 mcg PRN Q2HR PRN IV PAIN Last administered on 04/23/17 01:21; Start 04/19/17 at 16:30 Fentanyl Citrate (Fentanyl 2ml Vial) 50 mcg PRN Q2HR PRN IV PAIN Last administered on 04/22/17 02:56; Start 04/19/17 at 16:30 Midazolam HCl (Versed) 2 mg PRN Q2HR PRN IV SEDATION FOR VENT Last administered on 04/20/17 07:24; Start 04/19/17 at 16:30 Heparin Sodium/ Dextrose 500 ml @ 0 mls/hr CONT PRN IV SEE I/O RECORD Last administered on 04/20/17 07:26; Start 04/19/17 at 16:45 Heparin Sodium (Porcine) (Heparin Sodium) 1,450 unit PRN Q6HRS PRN IV FOR UFH LEVEL LESS THAN 0.2 Last administered on 04/19/17 20:56; Start 04/19/17 at 16:45 Midazolam HCl (Versed) 2 mg 1X ONCE IV Last administered on 04/19/17 16:45; Start 04/19/17 at 16:45; Stop 04/19/17 at 16:46; Status DC Sodium Chloride 1,000 ml @ 100 mls/hr Q10H IV Last administered on 04/21/17 03 :38; Start 04/19/17 at 18:15; Stop 04/21/17 at 11:35; Status DC Magnesium Sulfate/ Dextrose 50 ml @ 25 mls/hr 1X ONCE IV Last administered on 04/20/17 12:22; Start 04/20/17 at 11:45; Stop 04/20/17 at 13:44; Status DC Haloperidol Lactate (Haldol) 5 mg 1X ONCE IVP ; Start 04/20/17 at 22:00; Stop at 22:01; Status DC Lorazepam (Ativan) 1 mg PRN Q3HRS PRN IV ANXIETY / AGITATION Last administered on 04/23/17 03:38; Start 04/20/17 at 21:30 Potassium Chloride 50 ml @ 25 mls/hr Q2H IV Last administered on 04/21/17 15:07 ; Start 04/21/17 at 07:00; Stop 04/21/17 at 14:59; Status DC Pneumococcal Polyvalent Vaccine (Pneumovax 23) 0.5 ml ONCE ONCE VAX IM ; Start 04/22/17 at 09:00; Stop 04/22/17 at 09:01; Status DC Magnesium Sulfate/ Dextrose 100 ml @ 100 mls/hr 1X ONCE IV ; Start 04/21/17 at 13:00; Stop 04/21/17 at 13:59; Status Cancel Magnesium Sulfate/ Dextrose 100 ml @ 25 mls/hr 1X ONCE IV ; Start 04/21/17 at 13:00; Stop 04/21/17 at 16:59; Status Cancel Magnesium Sulfate/ Dextrose 50 ml @ 25 mls/hr 1X ONCE IV Last administered on 04/21/17 15:06; Start 04/21/17 at 13:00; Stop 04/21/17 at 14:59; Status DC Sodium Chloride 1,000 ml @ 100 mls/hr Q10H IV Last administered on 04/22/17 09 :36; Start 04/21/17 at 14:45; Stop 04/22/17 at 11:20; Status DC Midazolam HCl (Versed) 5 mg STK-MED ONCE .ROUTE ; Start 04/21/17 at 17:29; Stop 04/21/17 at 17:30; Status DC Midazolam HCl (Versed) 5 mg 1X ONCE IV Last administered on 04/21/17 19:15; Start 04/21/17 at 19:15; Stop 04/21/17 at 19:16; Status DC Amino Acids/ Glycerin/ Electrolytes 1,000 ml @ 75 mls/hr [id number] IV Last administered on 04/23/17 01:36; Start 04/22/17 at 11:30 Aspirin (Aspirin) 300 mg DAILY [place] Last administered on 04/23/17 10:22; Start at 09:00 Haloperidol Lactate (Haldol) 5 mg 1X ONCE IVP Last administered on 04/23/17 06 :46; Start 04/23/17 at 07:00; Stop 04/23/17 at 07:01; Status DC Furosemide (Lasix) 40 mg [id number] IVP Last administered on 04/23/17 10:22; Start 04/23/17 at 09:00 Haloperidol Lactate (Haldol) 5 mg PRN Q8HRS PRN IVP AGITATION; Start 04/23/17 at 10:30 Active Scripts Active Reported [No home meds] Vitals/I & O Vital Sign - Last 24 Hours 04/22/17 04/22/17 04/22/17 04/22/17 12:00 12:00 13:00 14:00 Temp 98.2 98.2 Pulse 66 66 68 Resp 22 20 20 B/P (MAP) 131/71 (91) 125/70 (88) 139/68 (91) Pulse Ox 97 97 97 O2 Delivery Room Air Room Air Room Air Room Air 04/22/17 04/22/17 04/22/17 04/22/17 16:00 16:00 17:59 19:00 Temp 98.5 98.5 Pulse 64 69 60 Resp 20 20 21 B/P (MAP) 105/44 (64) 112/48 (69) 100/52 (68) Pulse Ox 97 97 99 O2 Delivery Room Air Room Air Room Air Room Air 04/22/17 04/22/17 04/22/17 04/22/17 19:42 20:00 21:00 22:00 Pulse 61 61 66 Resp 20 26 24 B/P (MAP) 102/57 (72) 105/63 (77) 106/60 (75) Pulse Ox 99 97 96 O2 Delivery Room Air Room Air Room Air Room Air 04/22/17 04/22/17 04/23/17 04/23/17 23:00 23:49 00:00 01:00 Temp 98.6 98.6 Pulse 73 74 78 Resp 26 24 20 B/P (MAP) 101/55 (70) 104/67 (79) 116/69 (85) Pulse Ox 96 95 96 O2 Delivery Room Air Room Air Room Air Room Air 04/23/17 04/23/17 04/23/17 04/23/17 01:21 01:51 02:00 03:00 Pulse 94 90 Resp 28 25 B/P (MAP) 126/74 (91) 124/80 (95) Pulse Ox 96 96 94 94 O2 Delivery Room Air Room Air Room Air Room Air O2 Flow Rate 1.0 04/23/17 04/23/17 04/23/17 04/23/17 03:57 04:00 05:00 06:00 Temp 97.7 97.7 Pulse 73 87 85 Resp 28 25 25 B/P (MAP) 125/60 (81) 125/92 (103) 133/83 (100) Pulse Ox 96 93 95 O2 Delivery Room Air Room Air Room Air Nasal Cannula O2 Flow Rate 2.0 04/23/17 04/23/17 04/23/17 07:00 08:00 08:00 Temp 97.8 97.8 Pulse 70 61 Resp 23 28 B/P (MAP) 93/53 (66) 108/69 (82) Pulse Ox 99 100 O2 Delivery Nasal Cannula Nasal Cannula Nasal Cannula O2 Flow Rate 2.0 2.0 2.0 Intake and Output 04/22/17 04/22/17 04/23/17 15:00 23:00 07:00 Output Total 1175 ml 625 ml Balance -1175 ml -625 ml Nutrition Consultation Dietary Evaluation: Comments: Continue PPN @ 75 ml/hr to meet short term nutrition needs Rec. dobhoff TF's if unable to pass speech evaluation or advance diet Expected Outcomes/Goals: diet advancement vs. initiation of tube feeds Interpretation of weight loss: >5% in 1 month Malnutrition Findings: Food and Nutrition Intake (Sev: <50% est energy req 5days Body Fat Depletion (Non Severe: Mild Depletion Reduced It Systems Analyst Consultant Strength: N/A Weight Status: Underweight ANTHONY MARTI III DO Apr 23, 2017 11:16
--- NOTE | 2017-04-23 15:18 | PDOC ---
PULMONARY PROGRESS NOTES Subjective EXTUBATED 04/20 MORE RESPONSIVE TODAY NO RESP COMPLAINTS Vitals Vital Signs Date Time Temp Pulse Resp B/P (MAP) Pulse Ox O2 Delivery O2 Flow Rate FiO2 04/23/17 11:55 Nasal Cannula 2.0 04/23/17 11:00 97.5 60 24 107/71 (83) 96 97.5 General: Alert Lungs: Crackles Cardiovascular: S1, S2 Abdomen: Soft, Non-tender Neuro Exam: Alert Extremities: Other (EDEMA) Skin: Warm Labs Laboratory Tests Test 04/21/17 18:10 04/22/17 06:00 04/23/17 04:45 Potassium Level 3.9 mmol/L (3.5-5.1) 3.7 mmol/L (3.5-5.1) Magnesium Level 2.3 mg/dL (1.8-2.4) 2.1 mg/dL (1.8-2.4) Heparin Anti-Xa Act, Unfractionated < 0.10 IU/mL (0.30-0.70) White Blood Count 13.5 x10^3/uL (4.0-11.0) Red Blood Count 2.66 x10^6/uL (4.30-5.70) Hemoglobin 9.4 g/dL (13.0-17.5) Hematocrit 27.2 % (39.0-53.0) Mean Corpuscular Volume 103 fL (79-100) Mean Corpuscular Hemoglobin 36 pg (25-35) Mean Corpuscular Hemoglobin Concent 35 g/dL (31-37) Red Cell Distribution Width 13.6 % (11.5-14.5) Platelet Count 135 x10^3/uL (140-400) Neutrophils (%) (Auto) 75 % (31-73) Lymphocytes (%) (Auto) 10 % (24-48) Monocytes (%) (Auto) 14 % (0-9) Eosinophils (%) (Auto) 0 % (0-3) Basophils (%) (Auto) 1 % (0-3) Neutrophils # (Auto) 10.1 x10^3uL (1.8-7.7) Lymphocytes # (Auto) 1.4 x10^3/uL (1.0-4.8) Monocytes # (Auto) 1.8 x10^3/uL (0.0-1.1) Eosinophils # (Auto) 0.0 x10^3/uL (0.0-0.7) Basophils # (Auto) 0.1 x10^3/uL (0.0-0.2) Sodium Level 142 mmol/L (136-145) Chloride Level 108 mmol/L (98-107) Carbon Dioxide Level 22 mmol/L (21-32) Anion Gap 12 (6-14) Blood Urea Nitrogen 17 mg/dL (8-26) Creatinine 0.6 mg/dL (0.7-1.3) Estimated GFR (Cockcroft-Gault) 133.6 Glucose Level 110 mg/dL (70-99) Calcium Level 7.5 mg/dL (8.5-10.1) Triglycerides Level 124 mg/dL (0-150) Cholesterol Level 133 mg/dL (0-200) LDL Cholesterol, Calculated 61 mg/dL (0-100) VLDL Cholesterol, Calculated 25 mg/dL (0-40) Non-HDL Cholesterol Calculated 86 mg/dL (0-129) HDL Cholesterol 47 mg/dL (40-60) Cholesterol/HDL Ratio 2.8 Laboratory Tests Test 04/23/17 04:45 White Blood Count 13.5 x10^3/uL (4.0-11.0) Red Blood Count 2.66 x10^6/uL (4.30-5.70) Hemoglobin 9.4 g/dL (13.0-17.5) Hematocrit 27.2 % (39.0-53.0) Mean Corpuscular Volume 103 fL (79-100) Mean Corpuscular Hemoglobin 36 pg (25-35) Mean Corpuscular Hemoglobin Concent 35 g/dL (31-37) Red Cell Distribution Width 13.6 % (11.5-14.5) Platelet Count 135 x10^3/uL (140-400) Neutrophils (%) (Auto) 75 % (31-73) Lymphocytes (%) (Auto) 10 % (24-48) Monocytes (%) (Auto) 14 % (0-9) Eosinophils (%) (Auto) 0 % (0-3) Basophils (%) (Auto) 1 % (0-3) Neutrophils # (Auto) 10.1 x10^3uL (1.8-7.7) Lymphocytes # (Auto) 1.4 x10^3/uL (1.0-4.8) Monocytes # (Auto) 1.8 x10^3/uL (0.0-1.1) Eosinophils # (Auto) 0.0 x10^3/uL (0.0-0.7) Basophils # (Auto) 0.1 x10^3/uL (0.0-0.2) Sodium Level 142 mmol/L (136-145) Potassium Level 3.7 mmol/L (3.5-5.1) Chloride Level 108 mmol/L (98-107) Carbon Dioxide Level 22 mmol/L (21-32) Anion Gap 12 (6-14) Blood Urea Nitrogen 17 mg/dL (8-26) Creatinine 0.6 mg/dL (0.7-1.3) Estimated GFR (Cockcroft-Gault) 133.6 Glucose Level 110 mg/dL (70-99) Calcium Level 7.5 mg/dL (8.5-10.1) Magnesium Level 2.1 mg/dL (1.8-2.4) Triglycerides Level 124 mg/dL (0-150) Cholesterol Level 133 mg/dL (0-200) LDL Cholesterol, Calculated 61 mg/dL (0-100) VLDL Cholesterol, Calculated 25 mg/dL (0-40) Non-HDL Cholesterol Calculated 86 mg/dL (0-129) HDL Cholesterol 47 mg/dL (40-60) Cholesterol/HDL Ratio 2.8 Medications Active Scripts Medications Dose Route/Sig Max Daily Dose Days Date Category [No home meds] 04/18/17 Reported Impression . ACUTE RESPIRATORY FAILURE SEC TO CARDIAC ARREST VF/DEFIBRILLATED IN FIELD CAD PER CARD HYPOKALEMIA POSSIBLE ANOXIC BRAIN INJURY CARDIOGENIC SHOCK DYSPHAGIA Brief cath note. Initial AO pressure 98/58, post IABP Ao 136/78 Coronaries Left main. 45-50% lesion. LAD. Mid 95% lesion. Distal collaterals to the RCA. LCX. Proximal 80% lesion, OM1 85% lesion. RCA. Proximal chronic occlusion with distal collaterals from the RCA and LAD. No LV gram. AO root and abd. aorta without significant lesions. IABP placed from right femoral access without complications. Conclusions. 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 IABP placed with significant improvement in BP. Will consider for CABG. The patient remains on a ventilator. Discussed with the patients family. Full report to follow. Plan . ON LASIX NPO AMIODARONE BALLOON PUMP D/C OFF 02 RESP STATUS IS COMPENSATED FOLLOW CARD INPUT POSSIBLE CABG IN FUTURE D/C VERSED AND FENTANYL D/W AND RN D/C APRIL MONTENEGRO MD Apr 23, 2017 15:18
[2017-04-24 03:30] VITALS: BP 95/57
[2017-04-24 03:55] LABS: BASO % 0 % (0-3); EOS % 1 % (0-3); HEMATOCRIT 28.6 % (39.0-53.0); HEMOGLOBIN 9.5 g/dL (13.0-17.5); LYMPH # 1.3 x10^3/uL (1.0-4.8); LYMPH % 11 % (24-48); MEAN CORPUSCULAR HEMOGLOBIN 35 pg (25-35); MEAN CORPUSCULAR HGB CONC 33 g/dL (31-37); MEAN CORPUSCULAR VOLUME 104 fL (79-100); MONO % 15 % (0-9); NEUT % 72 % (31-73); PLATELET COUNT 139 x10^3/uL (140-400); RED BLOOD COUNT 2.76 x10^6/uL (4.30-5.70); RED CELL DISTRIBUTION WIDTH 13.4 % (11.5-14.5); WHITE BLOOD COUNT 11.7 x10^3/uL (4.0-11.0)
[2017-04-24] MEDS: AMINO AC 3%/ELECTROLYTE/GLYCER 1,000 ML IV SCH ×2 (05:10→16:50)
[2017-04-24 05:36] LABS: CALCIUM 7.6 mg/dL (8.5-10.1); CREATININE 0.6 mg/dL (0.7-1.3); GFR 133.6
[2017-04-24 07:00] VITALS: BP 95/53
[2017-04-24] MEDS: FUROSEMIDE 40 MG/4 ML VIAL. IVP SCH (08:50)
[2017-04-24] MEDS: ASPIRIN 300 MG SUPP.RECT PR SCH (08:50)
--- NOTE | 2017-04-24 09:32 | RAD ---
Examination: Single frontal view the chest History: History of respiratory failure. Comparison: 04/23/2017 Findings: Low lung volumes and technique accentuates heart size and pulmonary vascularity. There is interval improved bilateral patchy airspace opacities. There is mild left lung base airspace opacity likely atelectasis or infiltrate or trace left pleural effusion. Impression: 1. Interval improvement of diffuse patchy bilateral lung airspace opacities. 2. Mild left lung base airspace opacity likely atelectasis or infiltrate or trace left pleural effusion.
[2017-04-24] MEDS: POTASSIUM CHLORIDE 10MEQ 100 ML IV SCH ×4 (10:00→14:30)
--- NOTE | 2017-04-24 10:31 | PDOC ---
CARDIOLOGY PROGRESS NOTE SUBJECTIVE: No acute events overnight. Still seems confused with mild cognitive impairment. OBJECTIVE: Vital SIgns: Vital Signs Date Time Temp Pulse Resp B/P (MAP) Pulse Ox O2 Delivery O2 Flow Rate FiO2 04/24/17 07:00 97.8 63 22 95/53 (67) 91 Room Air 97.8 04/23/17 20:15 2.0 I & O Intake and Output 04/24/17 07:00 Output Total 4175 ml Balance -4175 ml Output Urine Total 4175 ml # Voids 2 Objective: GEN.: No apparent distress. Alert and oriented. HEENT: Head is normocephalic, atraumatic NECK: Supple. LUNGS: Clear to auscultation. HEART: RRR, S1, S2 present. Peripheral pulses intact ABDOMEN: Soft, nontender. Positive bowel sounds. EXTREMITIES: Without any cyanosis. NEUROLOGIC: Normal speech, normal tone. Adequate MMSE. PSYCHIATRIC: Normal affect, normal mood. SKIN: No ulcerations CURRENT MEDICATIONS: Lasix changed from 40mg ivp bid to 20mg ivp DIAGNOSTIC TESTING: No acute events on tele. ASSESSMENT: 1. cardiac arrest with 3V CAD. Problems: PLAN: 1. Continue low dose lasix for diuresis. changed lasix. 2. Replete lytes today. 3. Supportive care. Await CT surgery eval tomorrow. Discussed with . PAN BETH MD Apr 24, 2017 10:31
[2017-04-24 11:00] VITALS: BP_SYST 157; BP_SYST 95; BP_DIAS 133; BP_DIAS 66
--- NOTE | 2017-04-24 13:09 | PDOC ---
PROGRESS NOTES Chief Complaint Chief Complaint 1. Post code 2. cardiac arrest, vifb, 2/2 acute [place] likely, possible STEMI 3. ACUTE resp failure with cardiac arrest 4. hypokalemia 5. shock ,cardiogenic likely 6. leukocytosis, reactive 7. AMS, from cardiac arrest 8. Multivessel disease including left main 9. Dysphagia History of Present Illness History of Present Illness Patient was seen on the Tele unit. present. Patient was sitting in chair Patient is opening eyes and smiling spontaneously as well as responding to speech Vitals Vitals Vital Signs Date Time Temp Pulse Resp B/P (MAP) Pulse Ox O2 Delivery O2 Flow Rate FiO2 04/24/17 11:00 97.7 57 22 95/66 (76) 99 Room Air 97.7 04/23/17 20:15 2.0 Physical Exam General: Alert, Cooperative Heart: Normal S1, Normal S2 Lungs: Clear, Crackles Abdomen: Normal bowel sounds, Soft Extremities: No clubbing, No cyanosis, No edema Skin: No rashes, No breakdown, Other (significant ecchymosis to the right forearm) Labs LABS Laboratory Tests Test 04/24/17 02:05 04/24/17 02:55 Sodium Level 143 mmol/L (136-145) Potassium Level 3.0 mmol/L (3.5-5.1) Chloride Level 107 mmol/L (98-107) Carbon Dioxide Level 28 mmol/L (21-32) Anion Gap 8 (6-14) Blood Urea Nitrogen 20 mg/dL (8-26) Creatinine 0.6 mg/dL (0.7-1.3) Estimated GFR (Cockcroft-Gault) 133.6 Glucose Level 100 mg/dL (70-99) Calcium Level 7.6 mg/dL (8.5-10.1) White Blood Count 11.7 x10^3/uL (4.0-11.0) Red Blood Count 2.76 x10^6/uL (4.30-5.70) Hemoglobin 9.5 g/dL (13.0-17.5) Hematocrit 28.6 % (39.0-53.0) Mean Corpuscular Volume 104 fL (79-100) Mean Corpuscular Hemoglobin 35 pg (25-35) Mean Corpuscular Hemoglobin Concent 33 g/dL (31-37) Red Cell Distribution Width 13.4 % (11.5-14.5) Platelet Count 139 x10^3/uL (140-400) Neutrophils (%) (Auto) 72 % (31-73) Lymphocytes (%) (Auto) 11 % (24-48) Monocytes (%) (Auto) 15 % (0-9) Eosinophils (%) (Auto) 1 % (0-3) Basophils (%) (Auto) 0 % (0-3) Neutrophils # (Auto) 8.4 x10^3uL (1.8-7.7) Lymphocytes # (Auto) 1.3 x10^3/uL (1.0-4.8) Monocytes # (Auto) 1.8 x10^3/uL (0.0-1.1) Eosinophils # (Auto) 0.1 x10^3/uL (0.0-0.7) Basophils # (Auto) 0.0 x10^3/uL (0.0-0.2) Review of Systems Review of Systems co weakness co a little slowness Assessment and Plan Assessmemt and Plan Problems Medical Problems: (1) STEMI (ST elevation myocardial infarction) Status: Acute 1. Post code 2. cardiac arrest, vifb, 2/2 acute [place] likely, possible STEMI 3. ACUTE resp failure with cardiac arrest 4. hypokalemia 5. shock ,cardiogenic likely 6. leukocytosis, reactive 7. AMS, from cardiac arrest 8. Multivessel disease including left main 9. Dysphagia Plan ? CABG next week? ( or go to Rehab for a while first?) ST reeval in am On PPN PTOTST Cardiac monitoring Recheck labs Home med Prognosis guarded but improving slowly each day. Problems: Comment Review of Relevant I have reviewed the following items erna (where applicable) has been applied. Labs Laboratory Tests Test 04/23/17 04:45 04/24/17 02:05 04/24/17 02:55 White Blood Count 13.5 x10^3/uL (4.0-11.0) 11.7 x10^3/uL (4.0-11.0) Red Blood Count 2.66 x10^6/uL (4.30-5.70) 2.76 x10^6/uL (4.30-5.70) Hemoglobin 9.4 g/dL (13.0-17.5) 9.5 g/dL (13.0-17.5) Hematocrit 27.2 % (39.0-53.0) 28.6 % (39.0-53.0) Mean Corpuscular Volume 103 fL (79-100) 104 fL (79-100) Mean Corpuscular Hemoglobin 36 pg (25-35) 35 pg (25-35) Mean Corpuscular Hemoglobin Concent 35 g/dL (31-37) 33 g/dL (31-37) Red Cell Distribution Width 13.6 % (11.5-14.5) 13.4 % (11.5-14.5) Platelet Count 135 x10^3/uL (140-400) 139 x10^3/uL (140-400) Neutrophils (%) (Auto) 75 % (31-73) 72 % (31-73) Lymphocytes (%) (Auto) 10 % (24-48) 11 % (24-48) Monocytes (%) (Auto) 14 % (0-9) 15 % (0-9) Eosinophils (%) (Auto) 0 % (0-3) 1 % (0-3) Basophils (%) (Auto) 1 % (0-3) 0 % (0-3) Neutrophils # (Auto) 10.1 x10^3uL (1.8-7.7) 8.4 x10^3uL (1.8-7.7) Lymphocytes # (Auto) 1.4 x10^3/uL (1.0-4.8) 1.3 x10^3/uL (1.0-4.8) Monocytes # (Auto) 1.8 x10^3/uL (0.0-1.1) 1.8 x10^3/uL (0.0-1.1) Eosinophils # (Auto) 0.0 x10^3/uL (0.0-0.7) 0.1 x10^3/uL (0.0-0.7) Basophils # (Auto) 0.1 x10^3/uL (0.0-0.2) 0.0 x10^3/uL (0.0-0.2) Sodium Level 142 mmol/L (136-145) 143 mmol/L (136-145) Potassium Level 3.7 mmol/L (3.5-5.1) 3.0 mmol/L (3.5-5.1) Chloride Level 108 mmol/L (98-107) 107 mmol/L (98-107) Carbon Dioxide Level 22 mmol/L (21-32) 28 mmol/L (21-32) Anion Gap 12 (6-14) 8 (6-14) Blood Urea Nitrogen 17 mg/dL (8-26) 20 mg/dL (8-26) Creatinine 0.6 mg/dL (0.7-1.3) 0.6 mg/dL (0.7-1.3) Estimated GFR (Cockcroft-Gault) 133.6 133.6 Glucose Level 110 mg/dL (70-99) 100 mg/dL (70-99) Calcium Level 7.5 mg/dL (8.5-10.1) 7.6 mg/dL (8.5-10.1) Magnesium Level 2.1 mg/dL (1.8-2.4) Triglycerides Level 124 mg/dL (0-150) Cholesterol Level 133 mg/dL (0-200) LDL Cholesterol, Calculated 61 mg/dL (0-100) VLDL Cholesterol, Calculated 25 mg/dL (0-40) Non-HDL Cholesterol Calculated 86 mg/dL (0-129) HDL Cholesterol 47 mg/dL (40-60) Cholesterol/HDL Ratio 2.8 Laboratory Tests Test 04/24/17 02:05 04/24/17 02:55 Sodium Level 143 mmol/L (136-145) Potassium Level 3.0 mmol/L (3.5-5.1) Chloride Level 107 mmol/L (98-107) Carbon Dioxide Level 28 mmol/L (21-32) Anion Gap 8 (6-14) Blood Urea Nitrogen 20 mg/dL (8-26) Creatinine 0.6 mg/dL (0.7-1.3) Estimated GFR (Cockcroft-Gault) 133.6 Glucose Level 100 mg/dL (70-99) Calcium Level 7.6 mg/dL (8.5-10.1) White Blood Count 11.7 x10^3/uL (4.0-11.0) Red Blood Count 2.76 x10^6/uL (4.30-5.70) Hemoglobin 9.5 g/dL (13.0-17.5) Hematocrit 28.6 % (39.0-53.0) Mean Corpuscular Volume 104 fL (79-100) Mean Corpuscular Hemoglobin 35 pg (25-35) Mean Corpuscular Hemoglobin Concent 33 g/dL (31-37) Red Cell Distribution Width 13.4 % (11.5-14.5) Platelet Count 139 x10^3/uL (140-400) Neutrophils (%) (Auto) 72 % (31-73) Lymphocytes (%) (Auto) 11 % (24-48) Monocytes (%) (Auto) 15 % (0-9) Eosinophils (%) (Auto) 1 % (0-3) Basophils (%) (Auto) 0 % (0-3) Neutrophils # (Auto) 8.4 x10^3uL (1.8-7.7) Lymphocytes # (Auto) 1.3 x10^3/uL (1.0-4.8) Monocytes # (Auto) 1.8 x10^3/uL (0.0-1.1) Eosinophils # (Auto) 0.1 x10^3/uL (0.0-0.7) Basophils # (Auto) 0.0 x10^3/uL (0.0-0.2) Microbiology 04/17/17 Blood Culture - Final, Complete NO GROWTH AFTER 5 DAYS Medications Current Medications Heparin Sodium (Porcine) (Heparin Sodium) 10,000 unit STK-MED ONCE .ROUTE ; Start 04/17/17 at 19:03; Stop 04/17/17 at 19:04; Status DC Heparin Sodium (Porcine) (Heparin Sodium) 4,000 unit 1X ONCE IV Last administered on 04/17/17 19:05; Start 04/17/17 at 19:15; Stop 04/17/17 at 19:49; Status DC Sodium Chloride 1,000 ml @ 1,000 mls/hr Q1H IV Last administered on 04/17/17 19:07; Start 04/17/17 at 19:07; Stop 04/17/17 at 20:06; Status DC Midazolam HCl 100 ml @ As Directed STK-MED ONCE IV ; Start 04/17/17 at 19:15; Stop 04/17/17 at 19:16; Status DC Etomidate (Amidate) 20 mg STK-MED ONCE IV ; Start 04/17/17 at 19:15; Stop at 19:16; Status DC Succinylcholine Chloride (Anectine) 200 mg STK-MED ONCE .ROUTE ; Start 04/17/17 at 19:16; Stop 04/17/17 at 19:17; Status DC Heparin Sodium/ Sodium Chloride 1,500 ml @ As Directed STK-MED ONCE .ROUTE ; Start 04/17/17 at 19:24; Stop 04/17/17 at 19:25; Status DC Lidocaine HCl 20 ml STK-MED ONCE .ROUTE ; Start 04/17/17 at 19:24; Stop 04/17/17 at 19:25; Status DC Iodixanol (Visipaque 320) 100 ml STK-MED ONCE .ROUTE ; Start 04/17/17 at 19:24; Stop 04/17/17 at 19:25; Status DC Dopamine HCl/ Dextrose 250 ml @ 0 mls/hr CONT PRN IV SEE I/O RECORD Last administered on 04/17/17 19:32; Start 04/17/17 at 19:30; Stop 04/17/17 at 20:54; Status DC Dopamine HCl/ Dextrose 250 ml @ As Directed STK-MED ONCE IV ; Start 04/17/17 at 19:30; Stop 04/17/17 at 19:31; Status DC Ondansetron HCl (Zofran) 4 mg PRN Q8HRS PRN IV NAUSEA/VOMITING; Start 04/17/17 at 19:30; Stop 04/18/17 at 19:29; Status DC Sodium Chloride 1,000 ml @ 100 mls/hr Q10H IV Last administered on 04/18/17 12 :35; Start 04/17/17 at 19:30; Stop 04/18/17 at 19:29; Status DC Acetaminophen (Tylenol) 650 mg PRN Q4HRS PRN PO FEVER; Start 04/17/17 at 19:30; Stop 04/18/17 at 19:29; Status DC Heparin Sodium (Porcine) (Heparin Sodium) 10,000 unit STK-MED ONCE .ROUTE ; Start 04/17/17 at 20:16; Stop 04/17/17 at 20:17; Status DC Tirofiban/Sodium Chloride 0 ml @ As Directed STK-MED ONCE IV ; Start 04/17/17 at 20:16; Stop 04/17/17 at 20:17; Status DC Famotidine (Pepcid) 20 mg QHS IVP Last administered on 04/17/17 22:30; Start at 21:00; Stop 04/19/17 at 08:05; Status DC Etomidate (Amidate) 20 mg 1X ONCE IV Last administered on 04/17/17 19:00; Start 04/17/17 at 20:30; Stop 04/17/17 at 21:05; Status DC Succinylcholine Chloride (Anectine) 100 mg 1X ONCE IV Last administered on 04/17 19:00; Start 04/17/17 at 20:30; Stop 04/17/17 at 21:07; Status DC Lidocaine HCl/ Dextrose 500 ml @ 0 mls/hr 1X ONCE IV Last administered on 18:55; Start 04/17/17 at 20:30; Stop 04/17/17 at 21:08; Status DC Dopamine HCl/ Dextrose 250 ml @ 0 mls/hr CONT PRN IV SEE I/O RECORD Last administered on 04/20/17 09:36; Start 04/17/17 at 20:30 Heparin Sodium/ Dextrose 500 ml @ As Directed STK-MED ONCE IV ; Start 04/17/17 at 20:43; Stop 04/17/17 at 20:44; Status DC Heparin Sodium/ Dextrose 500 ml @ 0 mls/hr CONT PRN IV SEE I/O RECORD Last administered on 04/19/17 01:48; Start 04/17/17 at 20:45; Stop 04/19/17 at 16:41; Status DC Midazolam HCl (Versed) 5 mg 1X ONCE IV Last administered on 04/17/17 19:17; Start 04/17/17 at 21:00; Stop 04/17/17 at 21:07; Status DC Heparin Sodium (Porcine) (Heparin Sodium) 2,000 unit 1X ONCE IV Last administered on 04/17/17 20:59; Start 04/17/17 at 21:00; Stop 04/17/17 at 21:06; Status DC Iodixanol (Visipaque 320) 134 ml 1X ONCE IART Last administered on 04/17/17 20 :58; Start 04/17/17 at 21:00; Stop 04/17/17 at 21:04; Status DC Lidocaine HCl 20 ml 1X ONCE IJ Last administered on 04/17/17 20:58; Start 04/17 at 21:00; Stop 04/17/17 at 21:08; Status DC Fentanyl Citrate 30 ml @ As Directed STK-MED ONCE IV ; Start 04/17/17 at 21:09; Stop 04/17/17 at 21:10; Status DC Sodium Chloride 1,000 ml @ 1,000 mls/hr Q1H IV Last administered on 04/17/17 23:30; Start 04/17/17 at 21:30; Stop 04/18/17 at 03:42; Status DC Fentanyl Citrate (Fentanyl 2ml Vial) 25 mcg PRN Q30MIN PRN IV SED; Start at 21:30; Stop 04/21/17 at 14:35; Status DC Lorazepam (Ativan) 1 mg PRN Q30MIN PRN IV SEDATION Last administered on 20:49; Start 04/17/17 at 21:30; Stop 04/20/17 at 21:45; Status DC Fentanyl Citrate 30 ml @ 2.5 mls/hr CONT PRN PRN IV IVF Last administered on 13:30; Start 04/17/17 at 21:30; Stop 04/21/17 at 11:35; Status DC Propofol 100 ml @ 0 mls/hr CONT PRN IV SEE I/O RECORD Last administered on 09:26; Start 04/17/17 at 21:30; Stop 04/21/17 at 11:35; Status DC Vecuronium Megargel (Norcuron Bolus) DOSE AT 0.1 mg/kg PRN Q30MIN PRN IV SHIVERING Last administered on 04/18/17 16:00; Start 04/17/17 at 21:30; Stop 04/21 at 11:35; Status DC Meperidine HCl (Demerol) 12.5 mg PRN Q30MIN PRN IV SHIVERING Last administered on 04/18/17 04:17; Start 04/17/17 at 21:30; Stop 04/18/17 at 04:18; Status DC Multi-Ingred Cream/Lotion/Oil/ Oint (Artificial Tears Eye Oint) 1 balaji PRN Q6HRS PRN OU 0.5 INCH FOR DRY EYE Last administered on 04/18/17 23:57; Start at 21:30; Stop 04/21/17 at 14:35; Status DC Famotidine (Pepcid) 20 mg BID IVP Last administered on 04/21/17 09:00; Start at 09:00; Stop 04/21/17 at 14:35; Status DC Aspirin (Aspirin) 300 mg DAILY MT Last administered on 04/21/17 09:00; Start at 09:00; Stop 04/21/17 at 14:35; Status DC Sodium Chloride (Normal Saline Flush) 3 ml QSHIFT PRN IV AFTER MEDS AND BLOOD DRAWS; Start 04/17/17 at 21:30; Stop 04/21/17 at 14:35; Status DC Acetaminophen (Tylenol) 650 mg Q6HRS NG ; Start 04/18/17 at 00:00; Stop 04/18/17 at 23:59; Status DC Acetaminophen (Acetaminophen Supp) 650 mg PRN Q6HRS PRN MT MILD PAIN / TEMP Last administered on 04/19/17 12:20; Start 04/18/17 at 21:30; Stop 04/21/17 at 14: 35; Status DC Acetaminophen (Tylenol) 650 mg PRN Q6HRS PRN NG MILD PAIN / TEMP; Start at 21:30; Stop 04/21/17 at 14:35; Status DC Info 1 ea DAILY PRN MC PER PROTOCOL; Start 04/19/17 at 21:30; Stop 04/21/17 at 14 :35; Status DC Heparin Sodium/ Dextrose 500 ml @ 0 mls/hr CONT PRN IV SEE I/O RECORD; Start at 21:30; Stop 04/19/17 at 07:26; Status DC Heparin Sodium (Porcine) (Heparin Sodium) 1,450 unit PRN Q6HRS PRN IV FOR UFH LEVEL LESS THAN 0.2; Start 04/17/17 at 21:30; Stop 04/19/17 at 16:41; Status DC Sodium Chloride 1,000 ml @ 60 mls/hr [id number] IV Last administered on 04/19/17 10:21; Start 04/17/17 at 21:45; Stop 04/19/17 at 18:15; Status DC Midazolam HCl 100 ml @ 0 mls/hr CONT PRN IV SEE I/O RECORD; Start 04/17/17 at 22 :00; Stop 04/21/17 at 11:35; Status DC Sodium Bicarbonate 100 meq 1X ONCE IV Last administered on 04/18/17 02:02; Start 04/18/17 at 00:00; Stop 04/18/17 at 00:01; Status DC Amiodarone HCl 900 mg/Dextrose 518 ml @ 0 mls/hr 1X ONCE IV Last administered on 04/18/17 08:00; Start 04/18/17 at 08:00; Stop 04/18/17 at 08:01; Status DC Pneumococcal Polyvalent Vaccine (Do NOT chart on this placeholder) 1 each PRN DAILY PRN MC UNABLE TO RESPOND; Start 04/18/17 at 08:45; Status Cancel Amiodarone HCl 900 mg/Dextrose 518 ml @ 34.53 mls/ hr CONT PRN IV SEE I/O RECORD; Start 04/18/17 at 09:45; Stop 04/20/17 at 02:29; Status DC Potassium Chloride 50 ml @ 50 mls/hr 1X ONCE IV ; Start 04/18/17 at 10:30; Stop 04/18/17 at 10:30; Status DC Potassium Chloride 100 ml @ 100 mls/hr Q1H IV Last administered on 04/18/17 11 :39; Start 04/18/17 at 10:30; Stop 04/18/17 at 12:29; Status DC Ephedrine Sulfate 50 mg STK-MED ONCE IV ; Start 04/18/17 at 14:56; Stop 04/18/17 at 14:57; Status DC Potassium Chloride 50 ml @ 50 mls/hr Q1H IV Last administered on 04/18/17 19:23 ; Start 04/18/17 at 17:30; Stop 04/18/17 at 20:29; Status DC Magnesium Sulfate/ Dextrose 100 ml @ 100 mls/hr 1X ONCE IV Last administered on 04/18/17 17:10; Start 04/18/17 at 17:30; Stop 04/18/17 at 18:29; Status DC Calcium Gluconate (Calcium Gluconate) 1,000 mg 1X ONCE IV Last administered on 04/18/17 17:08; Start 04/18/17 at 17:15; Stop 04/18/17 at 17:16; Status DC Epinephrine HCl (EPINEPHrine SYRINGE) 1 mg STK-MED ONCE .ROUTE ; Start 04/17/17 at 17:03; Stop 04/18/17 at 17:03; Status DC Info (Anti-Coagulation Monitoring By Pharmacy) 1 each PRN DAILY PRN MC SEE COMMENTS Last administered on 04/23/17 08:11; Start 04/19/17 at 08:15 Chlorhexidine Gluconate (Peridex) 15 ml BID MM Last administered on 04/20/17 21 :47; Start 04/19/17 at 09:00; Stop 04/21/17 at 11:35; Status DC Amiodarone HCl 450 mg/Dextrose 259 ml @ 17.26 mls/ hr CONT PRN IV SEE I/O RECORD Last administered on 04/23/17 05:16; Start 04/19/17 at 13:00; Stop at 08:11; Status DC Midazolam HCl (Versed) 5 mg STK-MED ONCE .ROUTE ; Start 04/19/17 at 16:21; Stop 04/19/17 at 16:22; Status DC Midazolam HCl (Versed) 1 mg PRN Q2HR PRN IV SEDATION FOR VENT; Start 04/19/17 at 16:30; Stop 04/21/17 at 11:35; Status DC Fentanyl Citrate (Fentanyl 2ml Vial) 25 mcg PRN Q2HR PRN IV PAIN Last administered on 04/23/17 01:21; Start 04/19/17 at 16:30 Fentanyl Citrate (Fentanyl 2ml Vial) 50 mcg PRN Q2HR PRN IV PAIN Last administered on 04/22/17 02:56; Start 04/19/17 at 16:30 Midazolam HCl (Versed) 2 mg PRN Q2HR PRN IV SEDATION FOR VENT Last administered on 04/20/17 07:24; Start 04/19/17 at 16:30; Stop 04/23/17 at 16:35; Status DC Heparin Sodium/ Dextrose 500 ml @ 0 mls/hr CONT PRN IV SEE I/O RECORD Last administered on 04/20/17 07:26; Start 04/19/17 at 16:45 Heparin Sodium (Porcine) (Heparin Sodium) 1,450 unit PRN Q6HRS PRN IV FOR UFH LEVEL LESS THAN 0.2 Last administered on 04/19/17 20:56; Start 04/19/17 at 16:45 Midazolam HCl (Versed) 2 mg 1X ONCE IV Last administered on 04/19/17 16:45; Start 04/19/17 at 16:45; Stop 04/19/17 at 16:46; Status DC Sodium Chloride 1,000 ml @ 100 mls/hr Q10H IV Last administered on 04/21/17 03 :38; Start 04/19/17 at 18:15; Stop 04/21/17 at 11:35; Status DC Magnesium Sulfate/ Dextrose 50 ml @ 25 mls/hr 1X ONCE IV Last administered on 04/20/17 12:22; Start 04/20/17 at 11:45; Stop 04/20/17 at 13:44; Status DC Haloperidol Lactate (Haldol) 5 mg 1X ONCE IVP ; Start 04/20/17 at 22:00; Stop at 22:01; Status DC Lorazepam (Ativan) 1 mg PRN Q3HRS PRN IV ANXIETY / AGITATION Last administered on 04/23/17 21:46; Start 04/20/17 at 21:30 Potassium Chloride 50 ml @ 25 mls/hr Q2H IV Last administered on 04/21/17 15:07 ; Start 04/21/17 at 07:00; Stop 04/21/17 at 14:59; Status DC Pneumococcal Polyvalent Vaccine (Pneumovax 23) 0.5 ml ONCE ONCE VAX IM ; Start 04/22/17 at 09:00; Stop 04/22/17 at 09:01; Status DC Magnesium Sulfate/ Dextrose 100 ml @ 100 mls/hr 1X ONCE IV ; Start 04/21/17 at 13:00; Stop 04/21/17 at 13:59; Status Cancel Magnesium Sulfate/ Dextrose 100 ml @ 25 mls/hr 1X ONCE IV ; Start 04/21/17 at 13:00; Stop 04/21/17 at 16:59; Status Cancel Magnesium Sulfate/ Dextrose 50 ml @ 25 mls/hr 1X ONCE IV Last administered on 04/21/17 15:06; Start 04/21/17 at 13:00; Stop 04/21/17 at 14:59; Status DC Sodium Chloride 1,000 ml @ 100 mls/hr Q10H IV Last administered on 04/22/17 09 :36; Start 04/21/17 at 14:45; Stop 04/22/17 at 11:20; Status DC Midazolam HCl (Versed) 5 mg STK-MED ONCE .ROUTE ; Start 04/21/17 at 17:29; Stop 04/21/17 at 17:30; Status DC Midazolam HCl (Versed) 5 mg 1X ONCE IV Last administered on 04/21/17 19:15; Start 04/21/17 at 19:15; Stop 04/21/17 at 19:16; Status DC Amino Acids/ Glycerin/ Electrolytes 1,000 ml @ 75 mls/hr [id number] IV Last administered on 04/24/17 05:10; Start 04/22/17 at 11:30 Aspirin (Aspirin) 300 mg DAILY MT Last administered on 04/24/17 08:50; Start at 09:00 Haloperidol Lactate (Haldol) 5 mg 1X ONCE IVP Last administered on 04/23/17 06 :46; Start 04/23/17 at 07:00; Stop 04/23/17 at 07:01; Status DC Furosemide (Lasix) 40 mg [id number] IVP Last administered on 04/24/17 08:50; Start 04/23/17 at 09:00; Stop 04/24/17 at 10:23; Status DC Haloperidol Lactate (Haldol) 5 mg PRN Q8HRS PRN IVP AGITATION Last administered on 04/23/17 21:46; Start 04/23/17 at 10:30 Potassium Chloride 100 ml @ 100 mls/hr Q1H IV Last administered on 04/24/17 12 :59; Start 04/24/17 at 09:30; Stop 04/24/17 at 13:29 Furosemide (Lasix) 20 mg DAILY IVP ; Start 04/25/17 at 09:00 Active Scripts Active Reported [No home meds] Vitals/I & O Vital Sign - Last 24 Hours 04/23/17 04/23/17 04/23/17 04/23/17 15:00 19:45 20:15 23:31 Temp 97.3 97.3 97.7 97.3 97.3 97.7 Pulse 63 60 63 Resp 22 19 19 B/P (MAP) 115/64 (81) 114/61 (78) 106/55 (72) Pulse Ox 100 100 97 O2 Delivery Nasal Cannula Nasal Cannula Nasal Cannula Room Air O2 Flow Rate 2.0 2.0 2.0 04/24/17 04/24/17 04/24/17 04/24/17 03:30 07:00 08:05 11:00 Temp 97.9 97.8 97.7 97.9 97.8 97.7 Pulse 60 63 57 Resp 21 22 B/P (MAP) 95/57 (70) 95/53 (67) 95/66 (76) Pulse Ox 96 91 99 O2 Delivery Room Air Room Air Room Air Room Air Intake and Output 04/23/17 04/23/17 04/24/17 15:00 23:00 07:00 Output Total 2575 ml 1550 ml 50 ml Balance -2575 ml -1550 ml -50 ml Nutrition Consultation Dietary Evaluation: Comments: Continue PPN @ 75 ml/hr to meet short term nutrition needs Rec. dobhoff TF's if unable to pass speech evaluation or advance diet Expected Outcomes/Goals: diet advancement vs. initiation of tube feeds Interpretation of weight loss: >5% in 1 month Malnutrition Findings: Food and Nutrition Intake (Sev: <50% est energy req 5days Body Fat Depletion (Non Severe: Mild Depletion Reduced Cigarette Seller Strength: N/A Weight Status: Underweight CASTLE,NIAL K III DO Apr 24, 2017 13:09
[2017-04-24 15:00] VITALS: BP 107/61
--- NOTE | 2017-04-24 15:48 | PDOC ---
PULMONARY PROGRESS NOTES Subjective EXTUBATED 04/20 AT TIMES APPEARS CONFUSED MORE RESPONSIVE TODAY NO RESP COMPLAINTS Vitals Vital Signs Date Time Temp Pulse Resp B/P (MAP) Pulse Ox O2 Delivery O2 Flow Rate FiO2 04/24/17 15:00 97.3 70 22 107/61 (76) 99 Room Air 97.3 04/23/17 20:15 2.0 General: Alert Lungs: Clear, Crackles Cardiovascular: S1, S2 Abdomen: Soft, Non-tender Neuro Exam: Alert Extremities: Other (EDEMA) Skin: Warm Labs Laboratory Tests Test 04/23/17 04:45 04/24/17 02:05 04/24/17 02:55 White Blood Count 13.5 x10^3/uL (4.0-11.0) 11.7 x10^3/uL (4.0-11.0) Red Blood Count 2.66 x10^6/uL (4.30-5.70) 2.76 x10^6/uL (4.30-5.70) Hemoglobin 9.4 g/dL (13.0-17.5) 9.5 g/dL (13.0-17.5) Hematocrit 27.2 % (39.0-53.0) 28.6 % (39.0-53.0) Mean Corpuscular Volume 103 fL (79-100) 104 fL (79-100) Mean Corpuscular Hemoglobin 36 pg (25-35) 35 pg (25-35) Mean Corpuscular Hemoglobin Concent 35 g/dL (31-37) 33 g/dL (31-37) Red Cell Distribution Width 13.6 % (11.5-14.5) 13.4 % (11.5-14.5) Platelet Count 135 x10^3/uL (140-400) 139 x10^3/uL (140-400) Neutrophils (%) (Auto) 75 % (31-73) 72 % (31-73) Lymphocytes (%) (Auto) 10 % (24-48) 11 % (24-48) Monocytes (%) (Auto) 14 % (0-9) 15 % (0-9) Eosinophils (%) (Auto) 0 % (0-3) 1 % (0-3) Basophils (%) (Auto) 1 % (0-3) 0 % (0-3) Neutrophils # (Auto) 10.1 x10^3uL (1.8-7.7) 8.4 x10^3uL (1.8-7.7) Lymphocytes # (Auto) 1.4 x10^3/uL (1.0-4.8) 1.3 x10^3/uL (1.0-4.8) Monocytes # (Auto) 1.8 x10^3/uL (0.0-1.1) 1.8 x10^3/uL (0.0-1.1) Eosinophils # (Auto) 0.0 x10^3/uL (0.0-0.7) 0.1 x10^3/uL (0.0-0.7) Basophils # (Auto) 0.1 x10^3/uL (0.0-0.2) 0.0 x10^3/uL (0.0-0.2) Sodium Level 142 mmol/L (136-145) 143 mmol/L (136-145) Potassium Level 3.7 mmol/L (3.5-5.1) 3.0 mmol/L (3.5-5.1) Chloride Level 108 mmol/L (98-107) 107 mmol/L (98-107) Carbon Dioxide Level 22 mmol/L (21-32) 28 mmol/L (21-32) Anion Gap 12 (6-14) 8 (6-14) Blood Urea Nitrogen 17 mg/dL (8-26) 20 mg/dL (8-26) Creatinine 0.6 mg/dL (0.7-1.3) 0.6 mg/dL (0.7-1.3) Estimated GFR (Cockcroft-Gault) 133.6 133.6 Glucose Level 110 mg/dL (70-99) 100 mg/dL (70-99) Calcium Level 7.5 mg/dL (8.5-10.1) 7.6 mg/dL (8.5-10.1) Magnesium Level 2.1 mg/dL (1.8-2.4) Triglycerides Level 124 mg/dL (0-150) Cholesterol Level 133 mg/dL (0-200) LDL Cholesterol, Calculated 61 mg/dL (0-100) VLDL Cholesterol, Calculated 25 mg/dL (0-40) Non-HDL Cholesterol Calculated 86 mg/dL (0-129) HDL Cholesterol 47 mg/dL (40-60) Cholesterol/HDL Ratio 2.8 Laboratory Tests Test 04/24/17 02:05 04/24/17 02:55 Sodium Level 143 mmol/L (136-145) Potassium Level 3.0 mmol/L (3.5-5.1) Chloride Level 107 mmol/L (98-107) Carbon Dioxide Level 28 mmol/L (21-32) Anion Gap 8 (6-14) Blood Urea Nitrogen 20 mg/dL (8-26) Creatinine 0.6 mg/dL (0.7-1.3) Estimated GFR (Cockcroft-Gault) 133.6 Glucose Level 100 mg/dL (70-99) Calcium Level 7.6 mg/dL (8.5-10.1) White Blood Count 11.7 x10^3/uL (4.0-11.0) Red Blood Count 2.76 x10^6/uL (4.30-5.70) Hemoglobin 9.5 g/dL (13.0-17.5) Hematocrit 28.6 % (39.0-53.0) Mean Corpuscular Volume 104 fL (79-100) Mean Corpuscular Hemoglobin 35 pg (25-35) Mean Corpuscular Hemoglobin Concent 33 g/dL (31-37) Red Cell Distribution Width 13.4 % (11.5-14.5) Platelet Count 139 x10^3/uL (140-400) Neutrophils (%) (Auto) 72 % (31-73) Lymphocytes (%) (Auto) 11 % (24-48) Monocytes (%) (Auto) 15 % (0-9) Eosinophils (%) (Auto) 1 % (0-3) Basophils (%) (Auto) 0 % (0-3) Neutrophils # (Auto) 8.4 x10^3uL (1.8-7.7) Lymphocytes # (Auto) 1.3 x10^3/uL (1.0-4.8) Monocytes # (Auto) 1.8 x10^3/uL (0.0-1.1) Eosinophils # (Auto) 0.1 x10^3/uL (0.0-0.7) Basophils # (Auto) 0.0 x10^3/uL (0.0-0.2) Medications Active Scripts Medications Dose Route/Sig Max Daily Dose Days Date Category [No home meds] 04/18/17 Reported Impression . ACUTE RESPIRATORY FAILURE SEC TO CARDIAC ARREST VF/DEFIBRILLATED IN FIELD CAD PER CARD HYPOKALEMIA POSSIBLE ANOXIC BRAIN INJURY CARDIOGENIC SHOCK DYSPHAGIA URINARY RETENTION Brief cath note. Initial AO pressure 98/58, post IABP Ao 136/78 Coronaries Left main. 45-50% lesion. LAD. Mid 95% lesion. Distal collaterals to the RCA. LCX. Proximal 80% lesion, OM1 85% lesion. RCA. Proximal chronic occlusion with distal collaterals from the RCA and LAD. No LV gram. AO root and abd. aorta without significant lesions. IABP placed from right femoral access without complications. Conclusions. 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 IABP placed with significant improvement in BP. Will consider for CABG. The patient remains on a ventilator. Discussed with the patients family. Full report to follow. Plan . RESP STATUS IS COMPENSATED ON LASIX NPO AMIODARONE BALLOON PUMP D/C OFF 02 RESP STATUS IS COMPENSATED FOLLOW CARD INPUT POSSIBLE CABG IN FUTURE D/C VERSED AND FENTANYL D/W AND RN APRIL ESCUDEOR MD Apr 24, 2017 15:48
[2017-04-24 19:38] VITALS: BP 112/57
[2017-04-24 22:35] VITALS: BP 90/54
[2017-04-25 03:39] VITALS: BP 89/50
[2017-04-25 04:55] LABS: BASO % 0 % (0-3); EOS % 2 % (0-3); HEMOGLOBIN 9.8 g/dL (13.0-17.5); LYMPH # 1.5 x10^3/uL (1.0-4.8); LYMPH % 12 % (24-48); MEAN CORPUSCULAR HEMOGLOBIN 36 pg (25-35); MEAN CORPUSCULAR HGB CONC 34 g/dL (31-37); MEAN CORPUSCULAR VOLUME 105 fL (79-100); MONO % 13 % (0-9); NEUT % 74 % (31-73); PLATELET COUNT 192 x10^3/uL (140-400); RED BLOOD COUNT 2.75 x10^6/uL (4.30-5.70); RED CELL DISTRIBUTION WIDTH 13.5 % (11.5-14.5); WHITE BLOOD COUNT 12.3 x10^3/uL (4.0-11.0)
[2017-04-25 05:11] LABS: CALCIUM 7.8 mg/dL (8.5-10.1); CREATININE 0.6 mg/dL (0.7-1.3); GFR 133.6; POTASSIUM 3.8 mmol/L (3.5-5.1)
[2017-04-25 07:00] VITALS: BP 87/43
--- NOTE | 2017-04-25 07:48 | RAD ---
Portable chest, 2016: History: Respiratory failure Comparison is made yesterday study. The heart size and pulmonary vascularity are normal. Pulmonary edema evident on 04/23/2017 has resolved. There are moderate ongoing left basilar opacities compatible with consolidation and atelectasis. A component of pleural fluid cannot be excluded. No significant right lung infiltrate is seen. IMPRESSION: 1. Previously seen pulmonary edema has resolved. 2. Moderate ongoing left basilar consolidation/atelectasis.
[2017-04-25] MEDS: AMINO AC 3%/ELECTROLYTE/GLYCER 1,000 ML IV SCH ×2 (08:08→20:56)
[2017-04-25] MEDS: FUROSEMIDE 20 MG/2 ML VIAL. IVP SCH (08:59)
--- NOTE | 2017-04-25 09:00 | PDOC ---
PROGRESS NOTES Assessment Problems Medical Problems: (1) STEMI (ST elevation myocardial infarction) Status: Acute Anoxic encephalopathy. Metabolic encephalopathy, cleared S/p cardiac arrest, received hypothermia. Respiratory failure. STEMI, acute Pulmonary edema. HTN Weight loss Substance use/abuse, smoking and drinking. Dysphagia Plan Current medical management Await repeat swallow eval Subjective Denies complaints Objective Vital Signs Date Time Temp Pulse Resp B/P (MAP) Pulse Ox O2 Delivery O2 Flow Rate FiO2 04/25/17 07:00 97.5 56 16 87/43 (58) 95 Room Air 97.5 Intake and Output 04/25/17 07:00 Intake Total 900 ml Output Total 2750 ml Balance -1850 ml Intake Oral 0 ml IV Total 900 ml Output Urine Total 2750 ml PHYSICAL EXAM Alert. Oriented to time, place and person. Playing cards PERRL. EOMI. CN: no focal findings. Muscle tone: normal. Muscle strength: 5-/5 DTR: 2+ Plantar reflex: Flexor Gait: not examined in bed. Sensory exam: no abnormal findings. No cerebellar signs elicited. Review of Relevant I have reviewed the following items erna (where applicable) has been applied. Labs Laboratory Tests Test 04/24/17 02:05 04/24/17 02:55 04/25/17 03:50 04/25/17 03:55 Sodium Level 143 mmol/L (136-145) 142 mmol/L (136-145) Potassium Level 3.0 mmol/L (3.5-5.1) 3.8 mmol/L (3.5-5.1) Chloride Level 107 mmol/L (98-107) 106 mmol/L (98-107) Carbon Dioxide Level 28 mmol/L (21-32) 29 mmol/L (21-32) Anion Gap 8 (6-14) 7 (6-14) Blood Urea Nitrogen 20 mg/dL (8-26) 21 mg/dL (8-26) Creatinine 0.6 mg/dL (0.7-1.3) 0.6 mg/dL (0.7-1.3) Estimated GFR (Cockcroft-Gault) 133.6 133.6 Glucose Level 100 mg/dL (70-99) 99 mg/dL (70-99) Calcium Level 7.6 mg/dL (8.5-10.1) 7.8 mg/dL (8.5-10.1) White Blood Count 11.7 x10^3/uL (4.0-11.0) 12.3 x10^3/uL (4.0-11.0) Red Blood Count 2.76 x10^6/uL (4.30-5.70) 2.75 x10^6/uL (4.30-5.70) Hemoglobin 9.5 g/dL (13.0-17.5) 9.8 g/dL (13.0-17.5) Hematocrit 28.6 % (39.0-53.0) 29.0 % (39.0-53.0) Mean Corpuscular Volume 104 fL (79-100) 105 fL (79-100) Mean Corpuscular Hemoglobin 35 pg (25-35) 36 pg (25-35) Mean Corpuscular Hemoglobin Concent 33 g/dL (31-37) 34 g/dL (31-37) Red Cell Distribution Width 13.4 % (11.5-14.5) 13.5 % (11.5-14.5) Platelet Count 139 x10^3/uL (140-400) 192 x10^3/uL (140-400) Neutrophils (%) (Auto) 72 % (31-73) 74 % (31-73) Lymphocytes (%) (Auto) 11 % (24-48) 12 % (24-48) Monocytes (%) (Auto) 15 % (0-9) 13 % (0-9) Eosinophils (%) (Auto) 1 % (0-3) 2 % (0-3) Basophils (%) (Auto) 0 % (0-3) 0 % (0-3) Neutrophils # (Auto) 8.4 x10^3uL (1.8-7.7) 9.1 x10^3uL (1.8-7.7) Lymphocytes # (Auto) 1.3 x10^3/uL (1.0-4.8) 1.5 x10^3/uL (1.0-4.8) Monocytes # (Auto) 1.8 x10^3/uL (0.0-1.1) 1.6 x10^3/uL (0.0-1.1) Eosinophils # (Auto) 0.1 x10^3/uL (0.0-0.7) 0.2 x10^3/uL (0.0-0.7) Basophils # (Auto) 0.0 x10^3/uL (0.0-0.2) 0.0 x10^3/uL (0.0-0.2) Laboratory Tests Test 04/25/17 03:50 04/25/17 03:55 Sodium Level 142 mmol/L (136-145) Potassium Level 3.8 mmol/L (3.5-5.1) Chloride Level 106 mmol/L (98-107) Carbon Dioxide Level 29 mmol/L (21-32) Anion Gap 7 (6-14) Blood Urea Nitrogen 21 mg/dL (8-26) Creatinine 0.6 mg/dL (0.7-1.3) Estimated GFR (Cockcroft-Gault) 133.6 Glucose Level 99 mg/dL (70-99) Calcium Level 7.8 mg/dL (8.5-10.1) White Blood Count 12.3 x10^3/uL (4.0-11.0) Red Blood Count 2.75 x10^6/uL (4.30-5.70) Hemoglobin 9.8 g/dL (13.0-17.5) Hematocrit 29.0 % (39.0-53.0) Mean Corpuscular Volume 105 fL (79-100) Mean Corpuscular Hemoglobin 36 pg (25-35) Mean Corpuscular Hemoglobin Concent 34 g/dL (31-37) Red Cell Distribution Width 13.5 % (11.5-14.5) Platelet Count 192 x10^3/uL (140-400) Neutrophils (%) (Auto) 74 % (31-73) Lymphocytes (%) (Auto) 12 % (24-48) Monocytes (%) (Auto) 13 % (0-9) Eosinophils (%) (Auto) 2 % (0-3) Basophils (%) (Auto) 0 % (0-3) Neutrophils # (Auto) 9.1 x10^3uL (1.8-7.7) Lymphocytes # (Auto) 1.5 x10^3/uL (1.0-4.8) Monocytes # (Auto) 1.6 x10^3/uL (0.0-1.1) Eosinophils # (Auto) 0.2 x10^3/uL (0.0-0.7) Basophils # (Auto) 0.0 x10^3/uL (0.0-0.2) Microbiology 04/17/17 Blood Culture - Final, Complete NO GROWTH AFTER 5 DAYS Medications Current Medications Heparin Sodium (Porcine) (Heparin Sodium) 10,000 unit STK-MED ONCE .ROUTE ; Start 04/17/17 at 19:03; Stop 04/17/17 at 19:04; Status DC Heparin Sodium (Porcine) (Heparin Sodium) 4,000 unit 1X ONCE IV Last administered on 04/17/17 19:05; Start 04/17/17 at 19:15; Stop 04/17/17 at 19:49; Status DC Sodium Chloride 1,000 ml @ 1,000 mls/hr Q1H IV Last administered on 04/17/17 19:07; Start 04/17/17 at 19:07; Stop 04/17/17 at 20:06; Status DC Midazolam HCl 100 ml @ As Directed STK-MED ONCE IV ; Start 04/17/17 at 19:15; Stop 04/17/17 at 19:16; Status DC Etomidate (Amidate) 20 mg STK-MED ONCE IV ; Start 04/17/17 at 19:15; Stop at 19:16; Status DC Succinylcholine Chloride (Anectine) 200 mg STK-MED ONCE .ROUTE ; Start 04/17/17 at 19:16; Stop 04/17/17 at 19:17; Status DC Heparin Sodium/ Sodium Chloride 1,500 ml @ As Directed STK-MED ONCE .ROUTE ; Start 04/17/17 at 19:24; Stop 04/17/17 at 19:25; Status DC Lidocaine HCl 20 ml STK-MED ONCE .ROUTE ; Start 04/17/17 at 19:24; Stop 04/17/17 at 19:25; Status DC Iodixanol (Visipaque 320) 100 ml STK-MED ONCE .ROUTE ; Start 04/17/17 at 19:24; Stop 04/17/17 at 19:25; Status DC Dopamine HCl/ Dextrose 250 ml @ 0 mls/hr CONT PRN IV SEE I/O RECORD Last administered on 04/17/17 19:32; Start 04/17/17 at 19:30; Stop 04/17/17 at 20:54; Status DC Dopamine HCl/ Dextrose 250 ml @ As Directed STK-MED ONCE IV ; Start 04/17/17 at 19:30; Stop 04/17/17 at 19:31; Status DC Ondansetron HCl (Zofran) 4 mg PRN Q8HRS PRN IV NAUSEA/VOMITING; Start 04/17/17 at 19:30; Stop 04/18/17 at 19:29; Status DC Sodium Chloride 1,000 ml @ 100 mls/hr Q10H IV Last administered on 04/18/17 12 :35; Start 04/17/17 at 19:30; Stop 04/18/17 at 19:29; Status DC Acetaminophen (Tylenol) 650 mg PRN Q4HRS PRN PO FEVER; Start 04/17/17 at 19:30; Stop 04/18/17 at 19:29; Status DC Heparin Sodium (Porcine) (Heparin Sodium) 10,000 unit STK-MED ONCE .ROUTE ; Start 04/17/17 at 20:16; Stop 04/17/17 at 20:17; Status DC Tirofiban/Sodium Chloride 0 ml @ As Directed STK-MED ONCE IV ; Start 04/17/17 at 20:16; Stop 04/17/17 at 20:17; Status DC Famotidine (Pepcid) 20 mg QHS IVP Last administered on 04/17/17 22:30; Start at 21:00; Stop 04/19/17 at 08:05; Status DC Etomidate (Amidate) 20 mg 1X ONCE IV Last administered on 04/17/17 19:00; Start 04/17/17 at 20:30; Stop 04/17/17 at 21:05; Status DC Succinylcholine Chloride (Anectine) 100 mg 1X ONCE IV Last administered on 04/17 19:00; Start 04/17/17 at 20:30; Stop 04/17/17 at 21:07; Status DC Lidocaine HCl/ Dextrose 500 ml @ 0 mls/hr 1X ONCE IV Last administered on 18:55; Start 04/17/17 at 20:30; Stop 04/17/17 at 21:08; Status DC Dopamine HCl/ Dextrose 250 ml @ 0 mls/hr CONT PRN IV SEE I/O RECORD Last administered on 04/20/17 09:36; Start 04/17/17 at 20:30 Heparin Sodium/ Dextrose 500 ml @ As Directed STK-MED ONCE IV ; Start 04/17/17 at 20:43; Stop 04/17/17 at 20:44; Status DC Heparin Sodium/ Dextrose 500 ml @ 0 mls/hr CONT PRN IV SEE I/O RECORD Last administered on 04/19/17 01:48; Start 04/17/17 at 20:45; Stop 04/19/17 at 16:41; Status DC Midazolam HCl (Versed) 5 mg 1X ONCE IV Last administered on 04/17/17 19:17; Start 04/17/17 at 21:00; Stop 04/17/17 at 21:07; Status DC Heparin Sodium (Porcine) (Heparin Sodium) 2,000 unit 1X ONCE IV Last administered on 04/17/17 20:59; Start 04/17/17 at 21:00; Stop 04/17/17 at 21:06; Status DC Iodixanol (Visipaque 320) 134 ml 1X ONCE IART Last administered on 04/17/17 20 :58; Start 04/17/17 at 21:00; Stop 04/17/17 at 21:04; Status DC Lidocaine HCl 20 ml 1X ONCE IJ Last administered on 04/17/17 20:58; Start 04/17 at 21:00; Stop 04/17/17 at 21:08; Status DC Fentanyl Citrate 30 ml @ As Directed STK-MED ONCE IV ; Start 04/17/17 at 21:09; Stop 04/17/17 at 21:10; Status DC Sodium Chloride 1,000 ml @ 1,000 mls/hr Q1H IV Last administered on 04/17/17 23:30; Start 04/17/17 at 21:30; Stop 04/18/17 at 03:42; Status DC Fentanyl Citrate (Fentanyl 2ml Vial) 25 mcg PRN Q30MIN PRN IV SED; Start at 21:30; Stop 04/21/17 at 14:35; Status DC Lorazepam (Ativan) 1 mg PRN Q30MIN PRN IV SEDATION Last administered on 20:49; Start 04/17/17 at 21:30; Stop 04/20/17 at 21:45; Status DC Fentanyl Citrate 30 ml @ 2.5 mls/hr CONT PRN PRN IV IVF Last administered on 13:30; Start 04/17/17 at 21:30; Stop 04/21/17 at 11:35; Status DC Propofol 100 ml @ 0 mls/hr CONT PRN IV SEE I/O RECORD Last administered on 09:26; Start 04/17/17 at 21:30; Stop 04/21/17 at 11:35; Status DC Vecuronium [place] (Norcuron Bolus) DOSE AT 0.1 mg/kg PRN Q30MIN PRN IV SHIVERING Last administered on 04/18/17 16:00; Start 04/17/17 at 21:30; Stop 04/21 at 11:35; Status DC Meperidine HCl (Demerol) 12.5 mg PRN Q30MIN PRN IV SHIVERING Last administered on 04/18/17 04:17; Start 04/17/17 at 21:30; Stop 04/18/17 at 04:18; Status DC Multi-Ingred Cream/Lotion/Oil/ Oint (Artificial Tears Eye Oint) 1 balaji PRN Q6HRS PRN OU 0.5 INCH FOR DRY EYE Last administered on 04/18/17 23:57; Start at 21:30; Stop 04/21/17 at 14:35; Status DC Famotidine (Pepcid) 20 mg BID IVP Last administered on 04/21/17 09:00; Start at 09:00; Stop 04/21/17 at 14:35; Status DC Aspirin (Aspirin) 300 mg DAILY MT Last administered on 04/21/17 09:00; Start at 09:00; Stop 04/21/17 at 14:35; Status DC Sodium Chloride (Normal Saline Flush) 3 ml QSHIFT PRN IV AFTER MEDS AND BLOOD DRAWS; Start 04/17/17 at 21:30; Stop 04/21/17 at 14:35; Status DC Acetaminophen (Tylenol) 650 mg Q6HRS NG ; Start 04/18/17 at 00:00; Stop 04/18/17 at 23:59; Status DC Acetaminophen (Acetaminophen Supp) 650 mg PRN Q6HRS PRN MT MILD PAIN / TEMP Last administered on 04/19/17 12:20; Start 04/18/17 at 21:30; Stop 04/21/17 at 14: 35; Status DC Acetaminophen (Tylenol) 650 mg PRN Q6HRS PRN NG MILD PAIN / TEMP; Start at 21:30; Stop 04/21/17 at 14:35; Status DC Info 1 ea DAILY PRN MC PER PROTOCOL; Start 04/19/17 at 21:30; Stop 04/21/17 at 14 :35; Status DC Heparin Sodium/ Dextrose 500 ml @ 0 mls/hr CONT PRN IV SEE I/O RECORD; Start at 21:30; Stop 04/19/17 at 07:26; Status DC Heparin Sodium (Porcine) (Heparin Sodium) 1,450 unit PRN Q6HRS PRN IV FOR UFH LEVEL LESS THAN 0.2; Start 04/17/17 at 21:30; Stop 04/19/17 at 16:41; Status DC Sodium Chloride 1,000 ml @ 60 mls/hr [id number] IV Last administered on 04/19/17 10:21; Start 04/17/17 at 21:45; Stop 04/19/17 at 18:15; Status DC Midazolam HCl 100 ml @ 0 mls/hr CONT PRN IV SEE I/O RECORD; Start 04/17/17 at 22 :00; Stop 04/21/17 at 11:35; Status DC Sodium Bicarbonate 100 meq 1X ONCE IV Last administered on 04/18/17 02:02; Start 04/18/17 at 00:00; Stop 04/18/17 at 00:01; Status DC Amiodarone HCl 900 mg/Dextrose 518 ml @ 0 mls/hr 1X ONCE IV Last administered on 04/18/17 08:00; Start 04/18/17 at 08:00; Stop 04/18/17 at 08:01; Status DC Pneumococcal Polyvalent Vaccine (Do NOT chart on this placeholder) 1 each PRN DAILY PRN MC UNABLE TO RESPOND; Start 04/18/17 at 08:45; Status Cancel Amiodarone HCl 900 mg/Dextrose 518 ml @ 34.53 mls/ hr CONT PRN IV SEE I/O RECORD; Start 04/18/17 at 09:45; Stop 04/20/17 at 02:29; Status DC Potassium Chloride 50 ml @ 50 mls/hr 1X ONCE IV ; Start 04/18/17 at 10:30; Stop 04/18/17 at 10:30; Status DC Potassium Chloride 100 ml @ 100 mls/hr Q1H IV Last administered on 04/18/17 11 :39; Start 04/18/17 at 10:30; Stop 04/18/17 at 12:29; Status DC Ephedrine Sulfate 50 mg STK-MED ONCE IV ; Start 04/18/17 at 14:56; Stop 04/18/17 at 14:57; Status DC Potassium Chloride 50 ml @ 50 mls/hr Q1H IV Last administered on 04/18/17 19:23 ; Start 04/18/17 at 17:30; Stop 04/18/17 at 20:29; Status DC Magnesium Sulfate/ Dextrose 100 ml @ 100 mls/hr 1X ONCE IV Last administered on 04/18/17 17:10; Start 04/18/17 at 17:30; Stop 04/18/17 at 18:29; Status DC Calcium Gluconate (Calcium Gluconate) 1,000 mg 1X ONCE IV Last administered on 04/18/17 17:08; Start 04/18/17 at 17:15; Stop 04/18/17 at 17:16; Status DC Epinephrine HCl (EPINEPHrine SYRINGE) 1 mg STK-MED ONCE .ROUTE ; Start 04/17/17 at 17:03; Stop 04/18/17 at 17:03; Status DC Info (Anti-Coagulation Monitoring By Pharmacy) 1 each PRN DAILY PRN MC SEE COMMENTS Last administered on 04/23/17 08:11; Start 04/19/17 at 08:15 Chlorhexidine Gluconate (Peridex) 15 ml BID MM Last administered on 04/20/17 21 :47; Start 04/19/17 at 09:00; Stop 04/21/17 at 11:35; Status DC Amiodarone HCl 450 mg/Dextrose 259 ml @ 17.26 mls/ hr CONT PRN IV SEE I/O RECORD Last administered on 04/23/17 05:16; Start 04/19/17 at 13:00; Stop at 08:11; Status DC Midazolam HCl (Versed) 5 mg STK-MED ONCE .ROUTE ; Start 04/19/17 at 16:21; Stop 04/19/17 at 16:22; Status DC Midazolam HCl (Versed) 1 mg PRN Q2HR PRN IV SEDATION FOR VENT; Start 04/19/17 at 16:30; Stop 04/21/17 at 11:35; Status DC Fentanyl Citrate (Fentanyl 2ml Vial) 25 mcg PRN Q2HR PRN IV PAIN Last administered on 04/23/17 01:21; Start 04/19/17 at 16:30 Fentanyl Citrate (Fentanyl 2ml Vial) 50 mcg PRN Q2HR PRN IV PAIN Last administered on 04/22/17 02:56; Start 04/19/17 at 16:30 Midazolam HCl (Versed) 2 mg PRN Q2HR PRN IV SEDATION FOR VENT Last administered on 04/20/17 07:24; Start 04/19/17 at 16:30; Stop 04/23/17 at 16:35; Status DC Heparin Sodium/ Dextrose 500 ml @ 0 mls/hr CONT PRN IV SEE I/O RECORD Last administered on 04/20/17 07:26; Start 04/19/17 at 16:45 Heparin Sodium (Porcine) (Heparin Sodium) 1,450 unit PRN Q6HRS PRN IV FOR UFH LEVEL LESS THAN 0.2 Last administered on 04/19/17 20:56; Start 04/19/17 at 16:45 Midazolam HCl (Versed) 2 mg 1X ONCE IV Last administered on 04/19/17 16:45; Start 04/19/17 at 16:45; Stop 04/19/17 at 16:46; Status DC Sodium Chloride 1,000 ml @ 100 mls/hr Q10H IV Last administered on 04/21/17 03 :38; Start 04/19/17 at 18:15; Stop 04/21/17 at 11:35; Status DC Magnesium Sulfate/ Dextrose 50 ml @ 25 mls/hr 1X ONCE IV Last administered on 04/20/17 12:22; Start 04/20/17 at 11:45; Stop 04/20/17 at 13:44; Status DC Haloperidol Lactate (Haldol) 5 mg 1X ONCE IVP ; Start 04/20/17 at 22:00; Stop at 22:01; Status DC Lorazepam (Ativan) 1 mg PRN Q3HRS PRN IV ANXIETY / AGITATION Last administered on 04/23/17 21:46; Start 04/20/17 at 21:30 Potassium Chloride 50 ml @ 25 mls/hr Q2H IV Last administered on 04/21/17 15:07 ; Start 04/21/17 at 07:00; Stop 04/21/17 at 14:59; Status DC Pneumococcal Polyvalent Vaccine (Pneumovax 23) 0.5 ml ONCE ONCE VAX IM ; Start 04/22/17 at 09:00; Stop 04/22/17 at 09:01; Status DC Magnesium Sulfate/ Dextrose 100 ml @ 100 mls/hr 1X ONCE IV ; Start 04/21/17 at 13:00; Stop 04/21/17 at 13:59; Status Cancel Magnesium Sulfate/ Dextrose 100 ml @ 25 mls/hr 1X ONCE IV ; Start 04/21/17 at 13:00; Stop 04/21/17 at 16:59; Status Cancel Magnesium Sulfate/ Dextrose 50 ml @ 25 mls/hr 1X ONCE IV Last administered on 04/21/17 15:06; Start 04/21/17 at 13:00; Stop 04/21/17 at 14:59; Status DC Sodium Chloride 1,000 ml @ 100 mls/hr Q10H IV Last administered on 04/22/17 09 :36; Start 04/21/17 at 14:45; Stop 04/22/17 at 11:20; Status DC Midazolam HCl (Versed) 5 mg STK-MED ONCE .ROUTE ; Start 04/21/17 at 17:29; Stop 04/21/17 at 17:30; Status DC Midazolam HCl (Versed) 5 mg 1X ONCE IV Last administered on 04/21/17 19:15; Start 04/21/17 at 19:15; Stop 04/21/17 at 19:16; Status DC Amino Acids/ Glycerin/ Electrolytes 1,000 ml @ 75 mls/hr [id number] IV Last administered on 04/25/17 08:08; Start 04/22/17 at 11:30 Aspirin (Aspirin) 300 mg DAILY MT Last administered on 04/24/17 08:50; Start at 09:00 Haloperidol Lactate (Haldol) 5 mg 1X ONCE IVP Last administered on 04/23/17 06 :46; Start 04/23/17 at 07:00; Stop 04/23/17 at 07:01; Status DC Furosemide (Lasix) 40 mg [id number] IVP Last administered on 04/24/17 08:50; Start 04/23/17 at 09:00; Stop 04/24/17 at 10:23; Status DC Haloperidol Lactate (Haldol) 5 mg PRN Q8HRS PRN IVP AGITATION Last administered on 04/23/17 21:46; Start 04/23/17 at 10:30 Potassium Chloride 100 ml @ 100 mls/hr Q1H IV Last administered on 04/24/17 14 :30; Start 04/24/17 at 09:30; Stop 04/24/17 at 13:29; Status DC Furosemide (Lasix) 20 mg DAILY IVP ; Start 04/25/17 at 09:00 Active Scripts Active Reported [No home meds] Vitals/I & O Vital Sign - Last 24 Hours 04/24/17 04/24/17 04/24/17 04/24/17 11:00 15:00 19:38 19:41 Temp 97.7 97.3 97.8 97.7 97.3 97.8 Pulse 57 70 59 Resp 22 22 16 B/P (MAP) 95/66 (76) 107/61 (76) 112/57 (75) Pulse Ox 99 99 97 O2 Delivery Room Air Room Air Room Air Room Air 04/24/17 04/25/17 04/25/17 22:35 03:39 07:00 Temp 97.6 98.0 97.5 97.6 98.0 97.5 Pulse 61 56 56 Resp 16 16 16 B/P (MAP) 90/54 (66) 89/50 (63) 87/43 (58) Pulse Ox 94 94 95 O2 Delivery Room Air Room Air Room Air Intake and Output 04/24/17 04/24/17 04/25/17 15:00 23:00 07:00 Intake Total 0 ml 900 ml Output Total 2150 ml 600 ml Balance -2150 ml 300 ml ELADIO CHURCH MD Apr 25, 2017:00
--- NOTE | 2017-04-25 10:34 | PDOC ---
PULMONARY PROGRESS NOTES Subjective EXTUBATED 04/20 FULLY RESPONSIVE NO RESP COMPLAINTS Vitals Vital Signs Date Time Temp Pulse Resp B/P (MAP) Pulse Ox O2 Delivery O2 Flow Rate FiO2 04/25/17 07:00 97.5 56 16 87/43 (58) 95 Room Air 97.5 General: Alert, No acute distress Lungs: Clear Cardiovascular: S1, S2 Abdomen: Soft, Non-tender Neuro Exam: Alert Extremities: No Edema Skin: Warm Labs Laboratory Tests Test 04/24/17 02:05 04/24/17 02:55 04/25/17 03:50 04/25/17 03:55 Sodium Level 143 mmol/L (136-145) 142 mmol/L (136-145) Potassium Level 3.0 mmol/L (3.5-5.1) 3.8 mmol/L (3.5-5.1) Chloride Level 107 mmol/L (98-107) 106 mmol/L (98-107) Carbon Dioxide Level 28 mmol/L (21-32) 29 mmol/L (21-32) Anion Gap 8 (6-14) 7 (6-14) Blood Urea Nitrogen 20 mg/dL (8-26) 21 mg/dL (8-26) Creatinine 0.6 mg/dL (0.7-1.3) 0.6 mg/dL (0.7-1.3) Estimated GFR (Cockcroft-Gault) 133.6 133.6 Glucose Level 100 mg/dL (70-99) 99 mg/dL (70-99) Calcium Level 7.6 mg/dL (8.5-10.1) 7.8 mg/dL (8.5-10.1) White Blood Count 11.7 x10^3/uL (4.0-11.0) 12.3 x10^3/uL (4.0-11.0) Red Blood Count 2.76 x10^6/uL (4.30-5.70) 2.75 x10^6/uL (4.30-5.70) Hemoglobin 9.5 g/dL (13.0-17.5) 9.8 g/dL (13.0-17.5) Hematocrit 28.6 % (39.0-53.0) 29.0 % (39.0-53.0) Mean Corpuscular Volume 104 fL (79-100) 105 fL (79-100) Mean Corpuscular Hemoglobin 35 pg (25-35) 36 pg (25-35) Mean Corpuscular Hemoglobin Concent 33 g/dL (31-37) 34 g/dL (31-37) Red Cell Distribution Width 13.4 % (11.5-14.5) 13.5 % (11.5-14.5) Platelet Count 139 x10^3/uL (140-400) 192 x10^3/uL (140-400) Neutrophils (%) (Auto) 72 % (31-73) 74 % (31-73) Lymphocytes (%) (Auto) 11 % (24-48) 12 % (24-48) Monocytes (%) (Auto) 15 % (0-9) 13 % (0-9) Eosinophils (%) (Auto) 1 % (0-3) 2 % (0-3) Basophils (%) (Auto) 0 % (0-3) 0 % (0-3) Neutrophils # (Auto) 8.4 x10^3uL (1.8-7.7) 9.1 x10^3uL (1.8-7.7) Lymphocytes # (Auto) 1.3 x10^3/uL (1.0-4.8) 1.5 x10^3/uL (1.0-4.8) Monocytes # (Auto) 1.8 x10^3/uL (0.0-1.1) 1.6 x10^3/uL (0.0-1.1) Eosinophils # (Auto) 0.1 x10^3/uL (0.0-0.7) 0.2 x10^3/uL (0.0-0.7) Basophils # (Auto) 0.0 x10^3/uL (0.0-0.2) 0.0 x10^3/uL (0.0-0.2) Laboratory Tests Test 04/25/17 03:50 04/25/17 03:55 Sodium Level 142 mmol/L (136-145) Potassium Level 3.8 mmol/L (3.5-5.1) Chloride Level 106 mmol/L (98-107) Carbon Dioxide Level 29 mmol/L (21-32) Anion Gap 7 (6-14) Blood Urea Nitrogen 21 mg/dL (8-26) Creatinine 0.6 mg/dL (0.7-1.3) Estimated GFR (Cockcroft-Gault) 133.6 Glucose Level 99 mg/dL (70-99) Calcium Level 7.8 mg/dL (8.5-10.1) White Blood Count 12.3 x10^3/uL (4.0-11.0) Red Blood Count 2.75 x10^6/uL (4.30-5.70) Hemoglobin 9.8 g/dL (13.0-17.5) Hematocrit 29.0 % (39.0-53.0) Mean Corpuscular Volume 105 fL (79-100) Mean Corpuscular Hemoglobin 36 pg (25-35) Mean Corpuscular Hemoglobin Concent 34 g/dL (31-37) Red Cell Distribution Width 13.5 % (11.5-14.5) Platelet Count 192 x10^3/uL (140-400) Neutrophils (%) (Auto) 74 % (31-73) Lymphocytes (%) (Auto) 12 % (24-48) Monocytes (%) (Auto) 13 % (0-9) Eosinophils (%) (Auto) 2 % (0-3) Basophils (%) (Auto) 0 % (0-3) Neutrophils # (Auto) 9.1 x10^3uL (1.8-7.7) Lymphocytes # (Auto) 1.5 x10^3/uL (1.0-4.8) Monocytes # (Auto) 1.6 x10^3/uL (0.0-1.1) Eosinophils # (Auto) 0.2 x10^3/uL (0.0-0.7) Basophils # (Auto) 0.0 x10^3/uL (0.0-0.2) Medications Active Scripts Medications Dose Route/Sig Max Daily Dose Days Date Category [No home meds] 04/18/17 Reported Comments CXR 04/25 resolved CHF, mild residual LLL atelectasis Brief cath note. Initial AO pressure 98/58, post IABP Ao 136/78 Coronaries Left main. 45-50% lesion. LAD. Mid 95% lesion. Distal collaterals to the RCA. LCX. Proximal 80% lesion, OM1 85% lesion. RCA. Proximal chronic occlusion with distal collaterals from the RCA and LAD. No LV gram. AO root and abd. aorta without significant lesions. IABP placed from right femoral access without complications. Conclusions. 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 IABP placed with significant improvement in BP. Will consider for CABG. The patient remains on a ventilator. Discussed with the patients family. Full report to follow. Impression . ACUTE RESPIRATORY FAILURE SEC TO CARDIAC ARREST VF/DEFIBRILLATED IN FIELD CAD PER CARD(MV CAD) HYPOKALEMIA METABOLIC ENCEPHALOPATHY, CLEARED CARDIOGENIC SHOCK POA, RESOLVED DYSPHAGIA URINARY RETENTION Plan . RESPIRATORY STATUS IS COMPENSATED (resolved CHF 04/25, mild residual LLL atelectasis) ON LASIX NPO / SPEECH TO FOLLOW AMIODARONE BALLOON PUMP D/C OFF FOLLOW CARD INPUT , CABG IN FUTURE AFTER REHAB D/W KAREN GONZALEZ MD Apr 25, 2017 10:33
--- NOTE | 2017-04-25 10:57 | PDOC ---
PROGRESS NOTES Chief Complaint Chief Complaint Cardiac arrest s/p code ASSESSMENT AND PLAN: 1. STEMI w/ Vfib, cardiac arrest: successfully coded 04/17. 2. Acute respir failure: intubated at code; extubated on 04/20 3. Cardiogenic shock: resolved 3. Hyp/anoxic encephalopathy: minimal neurol deficits; OT/PT/ST 4. Hypokalemia: resolved. monitor, replete as indicated 5. Dysphagia: NPO; await rpt swallow study 6. Leukocytosis: reactive, stable. monitor 7. Anemia: macrocytic. prob 2/2 EtOH. obtain anemia profile to r/o vitamin deficiency 8. Dsipo: to rehab when swallowing issues resolved History of Present Illness History of Present Illness feels good, no CP. hungry, would love to eat but understands issues Vitals Vitals Vital Signs Date Time Temp Pulse Resp B/P (MAP) Pulse Ox O2 Delivery O2 Flow Rate FiO2 04/25/17 08:00 Room Air 04/25/17 07:00 97.5 56 16 87/43 (58) 95 97.5 Physical Exam General: Alert, Cooperative Heart: Normal S1, Normal S2 Lungs: Clear Abdomen: Normal bowel sounds, Soft Extremities: No clubbing, No cyanosis, No edema Skin: No rashes Labs LABS Laboratory Tests Test 04/25/17 03:50 04/25/17 03:55 Sodium Level 142 mmol/L (136-145) Potassium Level 3.8 mmol/L (3.5-5.1) Chloride Level 106 mmol/L (98-107) Carbon Dioxide Level 29 mmol/L (21-32) Anion Gap 7 (6-14) Blood Urea Nitrogen 21 mg/dL (8-26) Creatinine 0.6 mg/dL (0.7-1.3) Estimated GFR (Cockcroft-Gault) 133.6 Glucose Level 99 mg/dL (70-99) Calcium Level 7.8 mg/dL (8.5-10.1) White Blood Count 12.3 x10^3/uL (4.0-11.0) Red Blood Count 2.75 x10^6/uL (4.30-5.70) Hemoglobin 9.8 g/dL (13.0-17.5) Hematocrit 29.0 % (39.0-53.0) Mean Corpuscular Volume 105 fL (79-100) Mean Corpuscular Hemoglobin 36 pg (25-35) Mean Corpuscular Hemoglobin Concent 34 g/dL (31-37) Red Cell Distribution Width 13.5 % (11.5-14.5) Platelet Count 192 x10^3/uL (140-400) Neutrophils (%) (Auto) 74 % (31-73) Lymphocytes (%) (Auto) 12 % (24-48) Monocytes (%) (Auto) 13 % (0-9) Eosinophils (%) (Auto) 2 % (0-3) Basophils (%) (Auto) 0 % (0-3) Neutrophils # (Auto) 9.1 x10^3uL (1.8-7.7) Lymphocytes # (Auto) 1.5 x10^3/uL (1.0-4.8) Monocytes # (Auto) 1.6 x10^3/uL (0.0-1.1) Eosinophils # (Auto) 0.2 x10^3/uL (0.0-0.7) Basophils # (Auto) 0.0 x10^3/uL (0.0-0.2) Nutrition Consultation Dietary Evaluation: Comments: Continue PPN @ 75 ml/hr to meet short term nutrition needs Rec. dobhoff TF's if unable to pass speech evaluation or advance diet Expected Outcomes/Goals: diet advancement vs. 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
[2017-04-25 11:00] VITALS: BP 116/47
--- NOTE | 2017-04-25 12:34 | PDOC ---
CARDIO Progress Notes Date and Time Date of Service 04/25/17 Time of Evaluation 1120 Subjective Subjective: No Chest Pain, No shortness of breath, Other (walked with therapy; did very well. ) Vitals Vitals Vital Signs Date Time Temp Pulse Resp B/P (MAP) Pulse Ox O2 Delivery O2 Flow Rate FiO2 04/25/17 11:00 97.8 50 16 116/47 (70) 98 Room Air 97.8 Weight Weight [ ] Input and Output Intake and Output Intake and Output 04/25/17 07:00 Intake Total 900 ml Output Total 2750 ml Balance -1850 ml Intake Oral 0 ml IV Total 900 ml Output Urine Total 2750 ml Laboratory Labs Laboratory Tests Test 04/25/17 03:50 04/25/17 03:55 Sodium Level 142 mmol/L (136-145) Potassium Level 3.8 mmol/L (3.5-5.1) Chloride Level 106 mmol/L (98-107) Carbon Dioxide Level 29 mmol/L (21-32) Anion Gap 7 (6-14) Blood Urea Nitrogen 21 mg/dL (8-26) Creatinine 0.6 mg/dL (0.7-1.3) Estimated GFR (Cockcroft-Gault) 133.6 Glucose Level 99 mg/dL (70-99) Calcium Level 7.8 mg/dL (8.5-10.1) White Blood Count 12.3 x10^3/uL (4.0-11.0) Red Blood Count 2.75 x10^6/uL (4.30-5.70) Hemoglobin 9.8 g/dL (13.0-17.5) Hematocrit 29.0 % (39.0-53.0) Mean Corpuscular Volume 105 fL (79-100) Mean Corpuscular Hemoglobin 36 pg (25-35) Mean Corpuscular Hemoglobin Concent 34 g/dL (31-37) Red Cell Distribution Width 13.5 % (11.5-14.5) Platelet Count 192 x10^3/uL (140-400) Neutrophils (%) (Auto) 74 % (31-73) Lymphocytes (%) (Auto) 12 % (24-48) Monocytes (%) (Auto) 13 % (0-9) Eosinophils (%) (Auto) 2 % (0-3) Basophils (%) (Auto) 0 % (0-3) Neutrophils # (Auto) 9.1 x10^3uL (1.8-7.7) Lymphocytes # (Auto) 1.5 x10^3/uL (1.0-4.8) Monocytes # (Auto) 1.6 x10^3/uL (0.0-1.1) Eosinophils # (Auto) 0.2 x10^3/uL (0.0-0.7) Basophils # (Auto) 0.0 x10^3/uL (0.0-0.2) Microbiology Micro Microbiology 04/17/17 Blood Culture - Final, Complete NO GROWTH AFTER 5 DAYS Physical Exam HEENT: Neck Supple W Full Motion Chest: Symmetric LUNGS: Clear to Auscultation Heart: S1S2, RRR Abdomen: Soft N/T Extremities: 2+ Dorsalis Pedis, No Edema Neurology: alert, oriented, follow commands Assessment Assessment 1. VF arrest 2. 3V CAD; LVEF preserved. 3. Cardiogenic shock 4. Anoxic encephalopathy; improved Recommendations Limited echo to evaluate LV function post-code Continue ASA. Low-dose Lasix- convert to oral when able to take PO No BB/ACEi with low-normotensive pressures. Add if/when BP consistently adequate. Continue supportive care CTS eval. JUAN DIEGO RANGEL APRN Apr 25, 2017 12:34
[2017-04-25] MEDS ORDERED: BARIUM SULFATE 40% (APPLE) 148 GM PWD. PO ONE (14:30)
--- NOTE | 2017-04-25 15:31 | RAD ---
Video dysphasia study, 04/25/2017: History: Dysphasia The swallowing mechanism was examined in the lateral projection while the patient ingested a variety of food materials mixed with barium. 1.3 minutes of fluoroscopy time was utilized. One video loop was recorded by a member of the speech Department. When ingesting the thin liquids there was mild laryngeal penetration without holger aspiration. There tended be a moderate amount of vallecular and piriform sinus residue. When ingesting the thickened material the vallecular and piriform sinus residue increased. There was laryngeal penetration on a delayed basis related to this residue. This material in conjunction with the the coating from the prior laryngeal penetration eventually trickled down to the level of the cords and into the trachea. IMPRESSION: Disordered swallowing mechanism with mild laryngeal penetration during swallowing as well as delayed laryngeal penetration related to moderate vallecular and piriform sinus residue, resulting in mild holger aspiration.
--- NOTE | 2017-04-25 15:40 | CARD ---
APPROVED REPORT EXAM: Two-dimensional and M-mode echocardiogram with Doppler and color Doppler. Other Information Quality : Good Rhythm : NSR INDICATION Left ventricular evaluation (Post code) 2D DIMENSIONS RVDd2.7 (2.9-3.5cm)IVSd1.0 (0.7-1.1cm) Aortic Root(2D)3.1 (2.0-3.7cm)LVDd5.0 (3.9-5.9cm) PWd0.4 (0.7-1.1cm)LVDs3.6 (2.5-4.0cm) FS (%) 27.9 %SV63.5 ml LVEF(%)53.9 (>50%) LEFT VENTRICLE Limited echo, the cardiac valves were not assessed. Otherwise, the left ventricle is normal size. The re is normal left ventricular wall thickness. The left ventricular systolic function is normal and th e ejection fraction is within normal range. The ejection fraction is preserved at 55-60%. There is ak inesis of the basal and mid inferior wall. No left ventricle thrombus noted on this study. RIGHT VENTRICLE The right ventricle is normal size. There is normal right ventricular wall thickness. The right ventr icular systolic function is normal. ATRIA The left atrium size is normal. The right atrium size is normal. GREAT VESSELS The aortic root is normal in size. PERICARDIAL EFFUSION There is no evidence of significant pericardial effusion. Critical Notification Critical Value: No <Conclusion> The left ventricular systolic function is normal and the ejection fraction is within normal range. Th e ejection fraction is preserved at 55-60%. There is akinesis of the basal and mid inferior wall. Limited echo for EF and wall motion only.
[2017-04-25] MEDS: ASPIRIN 300 MG SUPP.RECT PR SCH (15:48)
[2017-04-25 19:45] VITALS: BP 96/55
[2017-04-25 22:22] VITALS: BP 96/51
[2017-04-26 03:15] VITALS: BP 104/60
[2017-04-26 05:29] LABS: BASO % 0 % (0-3); EOS % 2 % (0-3); HEMATOCRIT 31.3 % (39.0-53.0); HEMOGLOBIN 10.8 g/dL (13.0-17.5); LYMPH % 17 % (24-48); MEAN CORPUSCULAR HEMOGLOBIN 36 pg (25-35); MEAN CORPUSCULAR HGB CONC 35 g/dL (31-37); MEAN CORPUSCULAR VOLUME 103 fL (79-100); MONO % 11 % (0-9); NEUT % 71 % (31-73); PLATELET COUNT 293 x10^3/uL (140-400); RED BLOOD COUNT 3.04 x10^6/uL (4.30-5.70); RED CELL DISTRIBUTION WIDTH 13.7 % (11.5-14.5); WHITE BLOOD COUNT 12.1 x10^3/uL (4.0-11.0)
[2017-04-26] MEDS ORDERED: VANCOMYCIN 1GM IVPB FOR OMNI 250 ML IV PRN (06:00)
[2017-04-26 06:03] LABS: CALCIUM 8.7 mg/dL (8.5-10.1); CREATININE 0.6 mg/dL (0.7-1.3); GFR 133.6; POTASSIUM 3.8 mmol/L (3.5-5.1)
[2017-04-26 07:00] VITALS: BP 101/41
[2017-04-26] MEDS: FUROSEMIDE 20 MG/2 ML VIAL. IVP SCH (09:41)
[2017-04-26] MEDS: ASPIRIN 300 MG SUPP.RECT PR SCH (09:48)
[2017-04-26 10:58] VITALS: BP 112/54
--- NOTE | 2017-04-26 11:28 | PDOC2 ---
GI CONSULT Reason For Consult: Dysphagia/PEG HPI: HPI: 71 y/o male admitted 04/17 s/p VF arrest/resp failure, s/p cardiac cath w/ 3 vessel disease, extubated 04/20. Abnormal swallow eval/videoswallow; GI consulted re: PEG placement. Has been NPO on PPN and ASA [place]. Pt (although still some "forgetfulness") and family have discussed and wish to proceed, plans to go to rehab. Denies significant GI history including reflux/heartburn/ indigestion, abd pain, diarrhea, constipation, hematochezia/melena. No previous EGD or colonoscopy. No liver/GB/pancreatic history. Smokes cigars, drinks 3-4 beers daily. PMH: PMH: per HPI FH: Family History: No pertinent hx Social History: Smoke: <1 pack per day (cigars) ALCOHOL: heavy (3-4 beers daily) Drugs: None ROS: GEN: Denies fevers, chills, sweats HEENT: Denies blurred vision, sore throat CV: Denies chest pain RESP: Denies shortness of air, cough GI: Per HPI : Denies hematuria, dysuria ENDO: Denies weight changes NEURO: +forgetful MSK: +weakness SKIN: Denies jaundice, pruritus Vitals: Vitals: Vital Signs Date Time Temp Pulse Resp B/P (MAP) Pulse Ox O2 Delivery O2 Flow Rate FiO2 04/26/17 10:58 97.2 56 18 112/54 (73) 92 Room Air 97.2 04/26/17 08:00 2.0 Labs: Labs: Laboratory Tests Test 04/26/17 04:55 White Blood Count 12.1 x10^3/uL (4.0-11.0) Red Blood Count 3.04 x10^6/uL (4.30-5.70) Hemoglobin 10.8 g/dL (13.0-17.5) Hematocrit 31.3 % (39.0-53.0) Mean Corpuscular Volume 103 fL (79-100) Mean Corpuscular Hemoglobin 36 pg (25-35) Mean Corpuscular Hemoglobin Concent 35 g/dL (31-37) Red Cell Distribution Width 13.7 % (11.5-14.5) Platelet Count 293 x10^3/uL (140-400) Neutrophils (%) (Auto) 71 % (31-73) Lymphocytes (%) (Auto) 17 % (24-48) Monocytes (%) (Auto) 11 % (0-9) Eosinophils (%) (Auto) 2 % (0-3) Basophils (%) (Auto) 0 % (0-3) Neutrophils # (Auto) 8.6 x10^3uL (1.8-7.7) Lymphocytes # (Auto) 2.0 x10^3/uL (1.0-4.8) Monocytes # (Auto) 1.3 x10^3/uL (0.0-1.1) Eosinophils # (Auto) 0.2 x10^3/uL (0.0-0.7) Basophils # (Auto) 0.0 x10^3/uL (0.0-0.2) Sodium Level 141 mmol/L (136-145) Potassium Level 3.8 mmol/L (3.5-5.1) Chloride Level 104 mmol/L (98-107) Carbon Dioxide Level 27 mmol/L (21-32) Anion Gap 10 (6-14) Blood Urea Nitrogen 21 mg/dL (8-26) Creatinine 0.6 mg/dL (0.7-1.3) Estimated GFR (Cockcroft-Gault) 133.6 Glucose Level 99 mg/dL (70-99) Calcium Level 8.7 mg/dL (8.5-10.1) Allergies: Coded Allergies: Penicillins (Verified Allergy, Intermediate, 04/17/17) Medications: Current Medications Medications (Trade) Dose Ordered Sig/Shonda Route PRN Reason Start Time Stop Time Status Last Admin Dose Admin Barium Sulfate (Varibar Thin Liquid Apple) 148 gm 1X ONCE PO 04/25/17 14:30 04/25/17 14:31 DC 04/25/17 14:47 Imaging: Imaging: Videoswallow 04/25/17 IMPRESSION: Disordered swallowing mechanism with mild laryngeal penetration during swallowing as well as delayed laryngeal penetration related to moderate vallecular and piriform sinus residue, resulting in mild holger aspiration. 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 May need to consider long-term non-oral nutrition, given severity of dysphagia. Will continue FOREIGN SERVICE TEACHER f/u to address dysphagia. PE: GEN: NAD, up to chair, thin HEENT: poor dentition LUNGS: diminished HEART: RRR ABD: NABS, S/ND/NT EXTREMITY: No edema SKIN: No rashes, no jaundice NEURO/PSYCH: A & O 3, perhaps some confusion A/P: A/P: Bolus dysphagia s/p arrest CAD -has been on ASA [place] CRC screen -no previous colonoscopy Alcohol use -- D/w Dr. Fuentes - can plan for PEG tomorrow a.m. Screening colonoscopy as outpt. HOMERO LACEY Apr 26, 2017 11:28
--- NOTE | 2017-04-26 11:39 | PDOC ---
PROGRESS NOTES Assessment Problems Medical Problems: (1) STEMI (ST elevation myocardial infarction) Status: Acute Anoxic encephalopathy. Metabolic encephalopathy, cleared S/p cardiac arrest, received hypothermia. Respiratory failure. STEMI, acute Pulmonary edema. HTN Weight loss Substance use/abuse, smoking and drinking. Dysphagia, note swallow evaluation Plan PEG, dscussed with patient and Rehabilitation Subjective No complaints Objective Vital Signs Date Time Temp Pulse Resp B/P (MAP) Pulse Ox O2 Delivery O2 Flow Rate FiO2 04/26/17 10:58 97.2 56 18 112/54 (73) 92 Room Air 97.2 04/26/17 08:00 2.0 Intake and Output 04/26/17 07:00 Intake Total 150 ml Output Total 1200 ml Balance -1050 ml Intake Oral 0 ml IV Total 150 ml Output Urine Total 1200 ml PHYSICAL EXAM Alert. Oriented to time, place and person. PERRL. EOMI. CN: no focal findings. Muscle tone: normal. Muscle strength: 5-/5 DTR: 2+ Plantar reflex: Flexor Gait: not examined in bed. Sensory exam: no abnormal findings. No cerebellar signs elicited. Review of Relevant I have reviewed the following items erna (where applicable) has been applied. Labs Laboratory Tests Test 04/25/17 03:50 04/25/17 03:55 04/26/17 04:55 Sodium Level 142 mmol/L (136-145) 141 mmol/L (136-145) Potassium Level 3.8 mmol/L (3.5-5.1) 3.8 mmol/L (3.5-5.1) Chloride Level 106 mmol/L (98-107) 104 mmol/L (98-107) Carbon Dioxide Level 29 mmol/L (21-32) 27 mmol/L (21-32) Anion Gap 7 (6-14) 10 (6-14) Blood Urea Nitrogen 21 mg/dL (8-26) 21 mg/dL (8-26) Creatinine 0.6 mg/dL (0.7-1.3) 0.6 mg/dL (0.7-1.3) Estimated GFR (Cockcroft-Gault) 133.6 133.6 Glucose Level 99 mg/dL (70-99) 99 mg/dL (70-99) Calcium Level 7.8 mg/dL (8.5-10.1) 8.7 mg/dL (8.5-10.1) White Blood Count 12.3 x10^3/uL (4.0-11.0) 12.1 x10^3/uL (4.0-11.0) Red Blood Count 2.75 x10^6/uL (4.30-5.70) 3.04 x10^6/uL (4.30-5.70) Hemoglobin 9.8 g/dL (13.0-17.5) 10.8 g/dL (13.0-17.5) Hematocrit 29.0 % (39.0-53.0) 31.3 % (39.0-53.0) Mean Corpuscular Volume 105 fL (79-100) 103 fL (79-100) Mean Corpuscular Hemoglobin 36 pg (25-35) 36 pg (25-35) Mean Corpuscular Hemoglobin Concent 34 g/dL (31-37) 35 g/dL (31-37) Red Cell Distribution Width 13.5 % (11.5-14.5) 13.7 % (11.5-14.5) Platelet Count 192 x10^3/uL (140-400) 293 x10^3/uL (140-400) Neutrophils (%) (Auto) 74 % (31-73) 71 % (31-73) Lymphocytes (%) (Auto) 12 % (24-48) 17 % (24-48) Monocytes (%) (Auto) 13 % (0-9) 11 % (0-9) Eosinophils (%) (Auto) 2 % (0-3) 2 % (0-3) Basophils (%) (Auto) 0 % (0-3) 0 % (0-3) Neutrophils # (Auto) 9.1 x10^3uL (1.8-7.7) 8.6 x10^3uL (1.8-7.7) Lymphocytes # (Auto) 1.5 x10^3/uL (1.0-4.8) 2.0 x10^3/uL (1.0-4.8) Monocytes # (Auto) 1.6 x10^3/uL (0.0-1.1) 1.3 x10^3/uL (0.0-1.1) Eosinophils # (Auto) 0.2 x10^3/uL (0.0-0.7) 0.2 x10^3/uL (0.0-0.7) Basophils # (Auto) 0.0 x10^3/uL (0.0-0.2) 0.0 x10^3/uL (0.0-0.2) Laboratory Tests Test 04/26/17 04:55 White Blood Count 12.1 x10^3/uL (4.0-11.0) Red Blood Count 3.04 x10^6/uL (4.30-5.70) Hemoglobin 10.8 g/dL (13.0-17.5) Hematocrit 31.3 % (39.0-53.0) Mean Corpuscular Volume 103 fL (79-100) Mean Corpuscular Hemoglobin 36 pg (25-35) Mean Corpuscular Hemoglobin Concent 35 g/dL (31-37) Red Cell Distribution Width 13.7 % (11.5-14.5) Platelet Count 293 x10^3/uL (140-400) Neutrophils (%) (Auto) 71 % (31-73) Lymphocytes (%) (Auto) 17 % (24-48) Monocytes (%) (Auto) 11 % (0-9) Eosinophils (%) (Auto) 2 % (0-3) Basophils (%) (Auto) 0 % (0-3) Neutrophils # (Auto) 8.6 x10^3uL (1.8-7.7) Lymphocytes # (Auto) 2.0 x10^3/uL (1.0-4.8) Monocytes # (Auto) 1.3 x10^3/uL (0.0-1.1) Eosinophils # (Auto) 0.2 x10^3/uL (0.0-0.7) Basophils # (Auto) 0.0 x10^3/uL (0.0-0.2) Sodium Level 141 mmol/L (136-145) Potassium Level 3.8 mmol/L (3.5-5.1) Chloride Level 104 mmol/L (98-107) Carbon Dioxide Level 27 mmol/L (21-32) Anion Gap 10 (6-14) Blood Urea Nitrogen 21 mg/dL (8-26) Creatinine 0.6 mg/dL (0.7-1.3) Estimated GFR (Cockcroft-Gault) 133.6 Glucose Level 99 mg/dL (70-99) Calcium Level 8.7 mg/dL (8.5-10.1) Microbiology 04/17/17 Blood Culture - Final, Complete NO GROWTH AFTER 5 DAYS Medications Current Medications Heparin Sodium (Porcine) (Heparin Sodium) 10,000 unit STK-MED ONCE .ROUTE ; Start 04/17/17 at 19:03; Stop 04/17/17 at 19:04; Status DC Heparin Sodium (Porcine) (Heparin Sodium) 4,000 unit 1X ONCE IV Last administered on 04/17/17 19:05; Start 04/17/17 at 19:15; Stop 04/17/17 at 19:49; Status DC Sodium Chloride 1,000 ml @ 1,000 mls/hr Q1H IV Last administered on 04/17/17 19:07; Start 04/17/17 at 19:07; Stop 04/17/17 at 20:06; Status DC Midazolam HCl 100 ml @ As Directed STK-MED ONCE IV ; Start 04/17/17 at 19:15; Stop 04/17/17 at 19:16; Status DC Etomidate (Amidate) 20 mg STK-MED ONCE IV ; Start 04/17/17 at 19:15; Stop at 19:16; Status DC Succinylcholine Chloride (Anectine) 200 mg STK-MED ONCE .ROUTE ; Start 04/17/17 at 19:16; Stop 04/17/17 at 19:17; Status DC Heparin Sodium/ Sodium Chloride 1,500 ml @ As Directed STK-MED ONCE .ROUTE ; Start 04/17/17 at 19:24; Stop 04/17/17 at 19:25; Status DC Lidocaine HCl 20 ml STK-MED ONCE .ROUTE ; Start 04/17/17 at 19:24; Stop 04/17/17 at 19:25; Status DC Iodixanol (Visipaque 320) 100 ml STK-MED ONCE .ROUTE ; Start 04/17/17 at 19:24; Stop 04/17/17 at 19:25; Status DC Dopamine HCl/ Dextrose 250 ml @ 0 mls/hr CONT PRN IV SEE I/O RECORD Last administered on 04/17/17 19:32; Start 04/17/17 at 19:30; Stop 04/17/17 at 20:54; Status DC Dopamine HCl/ Dextrose 250 ml @ As Directed STK-MED ONCE IV ; Start 04/17/17 at 19:30; Stop 04/17/17 at 19:31; Status DC Ondansetron HCl (Zofran) 4 mg PRN Q8HRS PRN IV NAUSEA/VOMITING; Start 04/17/17 at 19:30; Stop 04/18/17 at 19:29; Status DC Sodium Chloride 1,000 ml @ 100 mls/hr Q10H IV Last administered on 04/18/17 12 :35; Start 04/17/17 at 19:30; Stop 04/18/17 at 19:29; Status DC Acetaminophen (Tylenol) 650 mg PRN Q4HRS PRN PO FEVER; Start 04/17/17 at 19:30; Stop 04/18/17 at 19:29; Status DC Heparin Sodium (Porcine) (Heparin Sodium) 10,000 unit STK-MED ONCE .ROUTE ; Start 04/17/17 at 20:16; Stop 04/17/17 at 20:17; Status DC Tirofiban/Sodium Chloride 0 ml @ As Directed STK-MED ONCE IV ; Start 04/17/17 at 20:16; Stop 04/17/17 at 20:17; Status DC Famotidine (Pepcid) 20 mg QHS IVP Last administered on 04/17/17 22:30; Start at 21:00; Stop 04/19/17 at 08:05; Status DC Etomidate (Amidate) 20 mg 1X ONCE IV Last administered on 04/17/17 19:00; Start 04/17/17 at 20:30; Stop 04/17/17 at 21:05; Status DC Succinylcholine Chloride (Anectine) 100 mg 1X ONCE IV Last administered on 04/17 19:00; Start 04/17/17 at 20:30; Stop 04/17/17 at 21:07; Status DC Lidocaine HCl/ Dextrose 500 ml @ 0 mls/hr 1X ONCE IV Last administered on 18:55; Start 04/17/17 at 20:30; Stop 04/17/17 at 21:08; Status DC Dopamine HCl/ Dextrose 250 ml @ 0 mls/hr CONT PRN IV SEE I/O RECORD Last administered on 04/20/17 09:36; Start 04/17/17 at 20:30 Heparin Sodium/ Dextrose 500 ml @ As Directed STK-MED ONCE IV ; Start 04/17/17 at 20:43; Stop 04/17/17 at 20:44; Status DC Heparin Sodium/ Dextrose 500 ml @ 0 mls/hr CONT PRN IV SEE I/O RECORD Last administered on 04/19/17 01:48; Start 04/17/17 at 20:45; Stop 04/19/17 at 16:41; Status DC Midazolam HCl (Versed) 5 mg 1X ONCE IV Last administered on 04/17/17 19:17; Start 04/17/17 at 21:00; Stop 04/17/17 at 21:07; Status DC Heparin Sodium (Porcine) (Heparin Sodium) 2,000 unit 1X ONCE IV Last administered on 04/17/17 20:59; Start 04/17/17 at 21:00; Stop 04/17/17 at 21:06; Status DC Iodixanol (Visipaque 320) 134 ml 1X ONCE IART Last administered on 04/17/17 20 :58; Start 04/17/17 at 21:00; Stop 04/17/17 at 21:04; Status DC Lidocaine HCl 20 ml 1X ONCE IJ Last administered on 04/17/17 20:58; Start 04/17 at 21:00; Stop 04/17/17 at 21:08; Status DC Fentanyl Citrate 30 ml @ As Directed STK-MED ONCE IV ; Start 04/17/17 at 21:09; Stop 04/17/17 at 21:10; Status DC Sodium Chloride 1,000 ml @ 1,000 mls/hr Q1H IV Last administered on 04/17/17 23:30; Start 04/17/17 at 21:30; Stop 04/18/17 at 03:42; Status DC Fentanyl Citrate (Fentanyl 2ml Vial) 25 mcg PRN Q30MIN PRN IV SED; Start at 21:30; Stop 04/21/17 at 14:35; Status DC Lorazepam (Ativan) 1 mg PRN Q30MIN PRN IV SEDATION Last administered on 20:49; Start 04/17/17 at 21:30; Stop 04/20/17 at 21:45; Status DC Fentanyl Citrate 30 ml @ 2.5 mls/hr CONT PRN PRN IV IVF Last administered on 13:30; Start 04/17/17 at 21:30; Stop 04/21/17 at 11:35; Status DC Propofol 100 ml @ 0 mls/hr CONT PRN IV SEE I/O RECORD Last administered on 09:26; Start 04/17/17 at 21:30; Stop 04/21/17 at 11:35; Status DC Vecuronium [place] (Norcuron Bolus) DOSE AT 0.1 mg/kg PRN Q30MIN PRN IV SHIVERING Last administered on 04/18/17 16:00; Start 04/17/17 at 21:30; Stop 04/21 at 11:35; Status DC Meperidine HCl (Demerol) 12.5 mg PRN Q30MIN PRN IV SHIVERING Last administered on 04/18/17 04:17; Start 04/17/17 at 21:30; Stop 04/18/17 at 04:18; Status DC Multi-Ingred Cream/Lotion/Oil/ Oint (Artificial Tears Eye Oint) 1 balaji PRN Q6HRS PRN OU 0.5 INCH FOR DRY EYE Last administered on 04/18/17 23:57; Start at 21:30; Stop 04/21/17 at 14:35; Status DC Famotidine (Pepcid) 20 mg BID IVP Last administered on 04/21/17 09:00; Start at 09:00; Stop 04/21/17 at 14:35; Status DC Aspirin (Aspirin) 300 mg DAILY OH Last administered on 04/21/17 09:00; Start at 09:00; Stop 04/21/17 at 14:35; Status DC Sodium Chloride (Normal Saline Flush) 3 ml QSHIFT PRN IV AFTER MEDS AND BLOOD DRAWS; Start 04/17/17 at 21:30; Stop 04/21/17 at 14:35; Status DC Acetaminophen (Tylenol) 650 mg Q6HRS NG ; Start 04/18/17 at 00:00; Stop 04/18/17 at 23:59; Status DC Acetaminophen (Acetaminophen Supp) 650 mg PRN Q6HRS PRN OH MILD PAIN / TEMP Last administered on 04/19/17 12:20; Start 04/18/17 at 21:30; Stop 04/21/17 at 14: 35; Status DC Acetaminophen (Tylenol) 650 mg PRN Q6HRS PRN NG MILD PAIN / TEMP; Start at 21:30; Stop 04/21/17 at 14:35; Status DC Info 1 ea DAILY PRN MC PER PROTOCOL; Start 04/19/17 at 21:30; Stop 04/21/17 at 14 :35; Status DC Heparin Sodium/ Dextrose 500 ml @ 0 mls/hr CONT PRN IV SEE I/O RECORD; Start at 21:30; Stop 04/19/17 at 07:26; Status DC Heparin Sodium (Porcine) (Heparin Sodium) 1,450 unit PRN Q6HRS PRN IV FOR UFH LEVEL LESS THAN 0.2; Start 04/17/17 at 21:30; Stop 04/19/17 at 16:41; Status DC Sodium Chloride 1,000 ml @ 60 mls/hr [id number] IV Last administered on 04/19/17 10:21; Start 04/17/17 at 21:45; Stop 04/19/17 at 18:15; Status DC Midazolam HCl 100 ml @ 0 mls/hr CONT PRN IV SEE I/O RECORD; Start 04/17/17 at 22 :00; Stop 04/21/17 at 11:35; Status DC Sodium Bicarbonate 100 meq 1X ONCE IV Last administered on 04/18/17 02:02; Start 04/18/17 at 00:00; Stop 04/18/17 at 00:01; Status DC Amiodarone HCl 900 mg/Dextrose 518 ml @ 0 mls/hr 1X ONCE IV Last administered on 04/18/17 08:00; Start 04/18/17 at 08:00; Stop 04/18/17 at 08:01; Status DC Pneumococcal Polyvalent Vaccine (Do NOT chart on this placeholder) 1 each PRN DAILY PRN MC UNABLE TO RESPOND; Start 04/18/17 at 08:45; Status Cancel Amiodarone HCl 900 mg/Dextrose 518 ml @ 34.53 mls/ hr CONT PRN IV SEE I/O RECORD; Start 04/18/17 at 09:45; Stop 04/20/17 at 02:29; Status DC Potassium Chloride 50 ml @ 50 mls/hr 1X ONCE IV ; Start 04/18/17 at 10:30; Stop 04/18/17 at 10:30; Status DC Potassium Chloride 100 ml @ 100 mls/hr Q1H IV Last administered on 04/18/17 11 :39; Start 04/18/17 at 10:30; Stop 04/18/17 at 12:29; Status DC Ephedrine Sulfate 50 mg STK-MED ONCE IV ; Start 04/18/17 at 14:56; Stop 04/18/17 at 14:57; Status DC Potassium Chloride 50 ml @ 50 mls/hr Q1H IV Last administered on 04/18/17 19:23 ; Start 04/18/17 at 17:30; Stop 04/18/17 at 20:29; Status DC Magnesium Sulfate/ Dextrose 100 ml @ 100 mls/hr 1X ONCE IV Last administered on 04/18/17 17:10; Start 04/18/17 at 17:30; Stop 04/18/17 at 18:29; Status DC Calcium Gluconate (Calcium Gluconate) 1,000 mg 1X ONCE IV Last administered on 04/18/17 17:08; Start 04/18/17 at 17:15; Stop 04/18/17 at 17:16; Status DC Epinephrine HCl (EPINEPHrine SYRINGE) 1 mg STK-MED ONCE .ROUTE ; Start 04/17/17 at 17:03; Stop 04/18/17 at 17:03; Status DC Info (Anti-Coagulation Monitoring By Pharmacy) 1 each PRN DAILY PRN MC SEE COMMENTS Last administered on 04/23/17 08:11; Start 04/19/17 at 08:15; Stop 04/26 at 11:13; Status DC Chlorhexidine Gluconate (Peridex) 15 ml BID MM Last administered on 04/20/17 21 :47; Start 04/19/17 at 09:00; Stop 04/21/17 at 11:35; Status DC Amiodarone HCl 450 mg/Dextrose 259 ml @ 17.26 mls/ hr CONT PRN IV SEE I/O RECORD Last administered on 04/23/17 05:16; Start 04/19/17 at 13:00; Stop at 08:11; Status DC Midazolam HCl (Versed) 5 mg STK-MED ONCE .ROUTE ; Start 04/19/17 at 16:21; Stop 04/19/17 at 16:22; Status DC Midazolam HCl (Versed) 1 mg PRN Q2HR PRN IV SEDATION FOR VENT; Start 04/19/17 at 16:30; Stop 04/21/17 at 11:35; Status DC Fentanyl Citrate (Fentanyl 2ml Vial) 25 mcg PRN Q2HR PRN IV PAIN Last administered on 04/23/17 01:21; Start 04/19/17 at 16:30 Fentanyl Citrate (Fentanyl 2ml Vial) 50 mcg PRN Q2HR PRN IV PAIN Last administered on 04/22/17 02:56; Start 04/19/17 at 16:30 Midazolam HCl (Versed) 2 mg PRN Q2HR PRN IV SEDATION FOR VENT Last administered on 04/20/17 07:24; Start 04/19/17 at 16:30; Stop 04/23/17 at 16:35; Status DC Heparin Sodium/ Dextrose 500 ml @ 0 mls/hr CONT PRN IV SEE I/O RECORD Last administered on 04/20/17 07:26; Start 04/19/17 at 16:45; Stop 04/26/17 at 11:13; Status DC Heparin Sodium (Porcine) (Heparin Sodium) 1,450 unit PRN Q6HRS PRN IV FOR UFH LEVEL LESS THAN 0.2 Last administered on 04/19/17 20:56; Start 04/19/17 at 16:45 Midazolam HCl (Versed) 2 mg 1X ONCE IV Last administered on 04/19/17 16:45; Start 04/19/17 at 16:45; Stop 04/19/17 at 16:46; Status DC Sodium Chloride 1,000 ml @ 100 mls/hr Q10H IV Last administered on 04/21/17 03 :38; Start 04/19/17 at 18:15; Stop 04/21/17 at 11:35; Status DC Magnesium Sulfate/ Dextrose 50 ml @ 25 mls/hr 1X ONCE IV Last administered on 04/20/17 12:22; Start 04/20/17 at 11:45; Stop 04/20/17 at 13:44; Status DC Haloperidol Lactate (Haldol) 5 mg 1X ONCE IVP ; Start 04/20/17 at 22:00; Stop at 22:01; Status DC Lorazepam (Ativan) 1 mg PRN Q3HRS PRN IV ANXIETY / AGITATION Last administered on 04/23/17 21:46; Start 04/20/17 at 21:30 Potassium Chloride 50 ml @ 25 mls/hr Q2H IV Last administered on 04/21/17 15:07 ; Start 04/21/17 at 07:00; Stop 04/21/17 at 14:59; Status DC Pneumococcal Polyvalent Vaccine (Pneumovax 23) 0.5 ml ONCE ONCE VAX IM Last administered on 04/25/17 15:45; Start 04/22/17 at 09:00; Stop 04/22/17 at 09:01; Status DC Magnesium Sulfate/ Dextrose 100 ml @ 100 mls/hr 1X ONCE IV ; Start 04/21/17 at 13:00; Stop 04/21/17 at 13:59; Status Cancel Magnesium Sulfate/ Dextrose 100 ml @ 25 mls/hr 1X ONCE IV ; Start 04/21/17 at 13:00; Stop 04/21/17 at 16:59; Status Cancel Magnesium Sulfate/ Dextrose 50 ml @ 25 mls/hr 1X ONCE IV Last administered on 04/21/17 15:06; Start 04/21/17 at 13:00; Stop 04/21/17 at 14:59; Status DC Sodium Chloride 1,000 ml @ 100 mls/hr Q10H IV Last administered on 04/22/17 09 :36; Start 04/21/17 at 14:45; Stop 04/22/17 at 11:20; Status DC Midazolam HCl (Versed) 5 mg STK-MED ONCE .ROUTE ; Start 04/21/17 at 17:29; Stop 04/21/17 at 17:30; Status DC Midazolam HCl (Versed) 5 mg 1X ONCE IV Last administered on 04/21/17 19:15; Start 04/21/17 at 19:15; Stop 04/21/17 at 19:16; Status DC Amino Acids/ Glycerin/ Electrolytes 1,000 ml @ 75 mls/hr [id number] IV Last administered on 04/25/17 20:56; Start 04/22/17 at 11:30 Aspirin (Aspirin) 300 mg DAILY [place] Last administered on 04/26/17 09:48; Start 04/23/17 at 09:00 Haloperidol Lactate (Haldol) 5 mg 1X ONCE IVP Last administered on 04/23/17 06 :46; Start 04/23/17 at 07:00; Stop 04/23/17 at 07:01; Status DC Furosemide (Lasix) 40 mg [id number] IVP Last administered on 04/24/17 08:50; Start 04/23/17 at 09:00; Stop 04/24/17 at 10:23; Status DC Haloperidol Lactate (Haldol) 5 mg PRN Q8HRS PRN IVP AGITATION Last administered on 04/23/17 21:46; Start 04/23/17 at 10:30 Potassium Chloride 100 ml @ 100 mls/hr Q1H IV Last administered on 04/24/17 14 :30; Start 04/24/17 at 09:30; Stop 04/24/17 at 13:29; Status DC Furosemide (Lasix) 20 mg DAILY IVP Last administered on 04/26/17 09:41; Start 04/25/17 at 09:00 Barium Sulfate (Varibar Thin Liquid Apple) 148 gm 1X ONCE PO Last administered on 04/25/17 14:47; Start 04/25/17 at 14:30; Stop 04/25/17 at 14:31 ; Status DC Active Scripts Active Reported [No home meds] Vitals/I & O Vital Sign - Last 24 Hours 04/25/17 04/25/17 04/25/17 04/26/17 19:45 19:45 22:22 03:15 Temp 98.4 98.4 97.6 98.4 98.4 97.6 Pulse 60 62 55 Resp 16 16 16 B/P (MAP) 96/55 (69) 96/51 (66) 104/60 (75) Pulse Ox 95 97 96 O2 Delivery Room Air Room Air Room Air Room Air 04/26/17 04/26/17 04/26/17 07:00 08:00 10:58 Temp 97.1 97.2 97.1 97.2 Pulse 50 56 Resp 18 18 B/P (MAP) 101/41 (61) 112/54 (73) Pulse Ox 95 92 O2 Delivery Room Air Room Air Room Air O2 Flow Rate 2.0 Intake and Output 04/25/17 04/25/17 04/26/17 15:00 23:00 07:00 Intake Total 150 ml 0 ml 0 ml Output Total 400 ml 800 ml Balance 150 ml -400 ml -800 ml ELADIO CHURCH MD Apr 26, 2017 11:39
--- NOTE | 2017-04-26 11:46 | PDOC ---
C[facility] Progress Notes Date and Time Date of Service 04/26/17 Time of Evaluation 1025 Subjective Subjective: No Chest Pain, No shortness of breath, Other (working with PT ) Vitals Vitals Vital Signs Date Time Temp Pulse Resp B/P (MAP) Pulse Ox O2 Delivery O2 Flow Rate FiO2 04/26/17 10:58 97.2 56 18 112/54 (73) 92 Room Air 97.2 04/26/17 08:00 2.0 Weight Weight [ ] Input and Output Intake and Output Intake and Output 04/26/17 07:00 Intake Total 150 ml Output Total 1200 ml Balance -1050 ml Intake Oral 0 ml IV Total 150 ml Output Urine Total 1200 ml Laboratory Labs Laboratory Tests Test 04/26/17 04:55 White Blood Count 12.1 x10^3/uL (4.0-11.0) Red Blood Count 3.04 x10^6/uL (4.30-5.70) Hemoglobin 10.8 g/dL (13.0-17.5) Hematocrit 31.3 % (39.0-53.0) Mean Corpuscular Volume 103 fL (79-100) Mean Corpuscular Hemoglobin 36 pg (25-35) Mean Corpuscular Hemoglobin Concent 35 g/dL (31-37) Red Cell Distribution Width 13.7 % (11.5-14.5) Platelet Count 293 x10^3/uL (140-400) Neutrophils (%) (Auto) 71 % (31-73) Lymphocytes (%) (Auto) 17 % (24-48) Monocytes (%) (Auto) 11 % (0-9) Eosinophils (%) (Auto) 2 % (0-3) Basophils (%) (Auto) 0 % (0-3) Neutrophils # (Auto) 8.6 x10^3uL (1.8-7.7) Lymphocytes # (Auto) 2.0 x10^3/uL (1.0-4.8) Monocytes # (Auto) 1.3 x10^3/uL (0.0-1.1) Eosinophils # (Auto) 0.2 x10^3/uL (0.0-0.7) Basophils # (Auto) 0.0 x10^3/uL (0.0-0.2) Sodium Level 141 mmol/L (136-145) Potassium Level 3.8 mmol/L (3.5-5.1) Chloride Level 104 mmol/L (98-107) Carbon Dioxide Level 27 mmol/L (21-32) Anion Gap 10 (6-14) Blood Urea Nitrogen 21 mg/dL (8-26) Creatinine 0.6 mg/dL (0.7-1.3) Estimated GFR (Cockcroft-Gault) 133.6 Glucose Level 99 mg/dL (70-99) Calcium Level 8.7 mg/dL (8.5-10.1) Microbiology Micro Microbiology 04/17/17 Blood Culture - Final, Complete NO GROWTH AFTER 5 DAYS Physical Exam HEENT: Neck Supple W Full Motion Chest: Symmetric LUNGS: Clear to Auscultation Heart: S1S2, RRR (tele SB rate 55) Abdomen: Soft N/T Extremities: 2+ Dorsalis Pedis, No Edema Neurology: alert, oriented, follow commands Assessment Assessment 1. VF arrest 2. 3V CAD; LVEF preserved. 3. Cardiogenic shock 4. Anoxic encephalopathy; improved 5. Dysphagia post arrest; to have PEG placed tomorrow. per GI Recommendations Limited echo with preserved LV function Plan to discharge to rehab with outpatient CTS followup Convert ASA and lasix to oral when able to use PEG. Also add Plavix. No BB/ACEi due to bradycardia and low-normotensive pressures. Lifevest upon discharge Supportive care. JUAN DIEGO RANGEL APRN Apr 26, 2017 11:46
[2017-04-26] MEDS ORDERED: 0.9 % SODIUM CHLORIDE 10 ML DISP.SYRIN. IV PRN (12:00)
[2017-04-26] MEDS: AMINO AC 3%/ELECTROLYTE/GLYCER 1,000 ML IV SCH (12:20)
--- NOTE | 2017-04-26 13:03 | PDOC ---
PROGRESS NOTES Chief Complaint Chief Complaint Cardiac arrest s/p code ASSESSMENT AND PLAN: 1. STEMI w/ Vfib, cardiac arrest: successfully coded 04/17. 2. Acute respir failure: intubated at code; extubated on 04/20. no persistent issues 3. Cardiogenic shock: resolved 3. Hyp/anoxic encephalopathy: minimal neurol deficits; OT/PT/ST following 4. Hypokalemia: resolved. monitor, replete as indicated 5. Dysphagia: NPO; plan for PEG in AM by Dr Fuentes 6. Leukocytosis: reactive, stable. monitor 7. Anemia: macrocytic. prob 2/2 EtOH. obtain anemia profile to r/o vitamin deficiency 8. Dispo: to rehab post PEG/start of tube feeds History of Present Illness History of Present Illness no c/o. in good spirits Vitals Vitals Vital Signs Date Time Temp Pulse Resp B/P (MAP) Pulse Ox O2 Delivery O2 Flow Rate FiO2 04/26/17 10:58 97.2 56 18 112/54 (73) 92 Room Air 97.2 04/26/17 08:00 2.0 Physical Exam General: Alert, Cooperative Heart: Normal S1, Normal S2 Lungs: Clear Abdomen: Normal bowel sounds, Soft Extremities: No edema Skin: No rashes, Other (mult bruises over UEs) Labs LABS Laboratory Tests Test 04/26/17 04:55 White Blood Count 12.1 x10^3/uL (4.0-11.0) Red Blood Count 3.04 x10^6/uL (4.30-5.70) Hemoglobin 10.8 g/dL (13.0-17.5) Hematocrit 31.3 % (39.0-53.0) Mean Corpuscular Volume 103 fL (79-100) Mean Corpuscular Hemoglobin 36 pg (25-35) Mean Corpuscular Hemoglobin Concent 35 g/dL (31-37) Red Cell Distribution Width 13.7 % (11.5-14.5) Platelet Count 293 x10^3/uL (140-400) Neutrophils (%) (Auto) 71 % (31-73) Lymphocytes (%) (Auto) 17 % (24-48) Monocytes (%) (Auto) 11 % (0-9) Eosinophils (%) (Auto) 2 % (0-3) Basophils (%) (Auto) 0 % (0-3) Neutrophils # (Auto) 8.6 x10^3uL (1.8-7.7) Lymphocytes # (Auto) 2.0 x10^3/uL (1.0-4.8) Monocytes # (Auto) 1.3 x10^3/uL (0.0-1.1) Eosinophils # (Auto) 0.2 x10^3/uL (0.0-0.7) Basophils # (Auto) 0.0 x10^3/uL (0.0-0.2) Sodium Level 141 mmol/L (136-145) Potassium Level 3.8 mmol/L (3.5-5.1) Chloride Level 104 mmol/L (98-107) Carbon Dioxide Level 27 mmol/L (21-32) Anion Gap 10 (6-14) Blood Urea Nitrogen 21 mg/dL (8-26) Creatinine 0.6 mg/dL (0.7-1.3) Estimated GFR (Cockcroft-Gault) 133.6 Glucose Level 99 mg/dL (70-99) Calcium Level 8.7 mg/dL (8.5-10.1) Comment Review of Relevant I have reviewed the following items erna (where applicable) has been applied. Labs Laboratory Tests Test 04/25/17 03:50 04/25/17 03:55 04/26/17 04:55 Sodium Level 142 mmol/L (136-145) 141 mmol/L (136-145) Potassium Level 3.8 mmol/L (3.5-5.1) 3.8 mmol/L (3.5-5.1) Chloride Level 106 mmol/L (98-107) 104 mmol/L (98-107) Carbon Dioxide Level 29 mmol/L (21-32) 27 mmol/L (21-32) Anion Gap 7 (6-14) 10 (6-14) Blood Urea Nitrogen 21 mg/dL (8-26) 21 mg/dL (8-26) Creatinine 0.6 mg/dL (0.7-1.3) 0.6 mg/dL (0.7-1.3) Estimated GFR (Cockcroft-Gault) 133.6 133.6 Glucose Level 99 mg/dL (70-99) 99 mg/dL (70-99) Calcium Level 7.8 mg/dL (8.5-10.1) 8.7 mg/dL (8.5-10.1) White Blood Count 12.3 x10^3/uL (4.0-11.0) 12.1 x10^3/uL (4.0-11.0) Red Blood Count 2.75 x10^6/uL (4.30-5.70) 3.04 x10^6/uL (4.30-5.70) Hemoglobin 9.8 g/dL (13.0-17.5) 10.8 g/dL (13.0-17.5) Hematocrit 29.0 % (39.0-53.0) 31.3 % (39.0-53.0) Mean Corpuscular Volume 105 fL (79-100) 103 fL (79-100) Mean Corpuscular Hemoglobin 36 pg (25-35) 36 pg (25-35) Mean Corpuscular Hemoglobin Concent 34 g/dL (31-37) 35 g/dL (31-37) Red Cell Distribution Width 13.5 % (11.5-14.5) 13.7 % (11.5-14.5) Platelet Count 192 x10^3/uL (140-400) 293 x10^3/uL (140-400) Neutrophils (%) (Auto) 74 % (31-73) 71 % (31-73) Lymphocytes (%) (Auto) 12 % (24-48) 17 % (24-48) Monocytes (%) (Auto) 13 % (0-9) 11 % (0-9) Eosinophils (%) (Auto) 2 % (0-3) 2 % (0-3) Basophils (%) (Auto) 0 % (0-3) 0 % (0-3) Neutrophils # (Auto) 9.1 x10^3uL (1.8-7.7) 8.6 x10^3uL (1.8-7.7) Lymphocytes # (Auto) 1.5 x10^3/uL (1.0-4.8) 2.0 x10^3/uL (1.0-4.8) Monocytes # (Auto) 1.6 x10^3/uL (0.0-1.1) 1.3 x10^3/uL (0.0-1.1) Eosinophils # (Auto) 0.2 x10^3/uL (0.0-0.7) 0.2 x10^3/uL (0.0-0.7) Basophils # (Auto) 0.0 x10^3/uL (0.0-0.2) 0.0 x10^3/uL (0.0-0.2) Laboratory Tests Test 04/26/17 04:55 White Blood Count 12.1 x10^3/uL (4.0-11.0) Red Blood Count 3.04 x10^6/uL (4.30-5.70) Hemoglobin 10.8 g/dL (13.0-17.5) Hematocrit 31.3 % (39.0-53.0) Mean Corpuscular Volume 103 fL (79-100) Mean Corpuscular Hemoglobin 36 pg (25-35) Mean Corpuscular Hemoglobin Concent 35 g/dL (31-37) Red Cell Distribution Width 13.7 % (11.5-14.5) Platelet Count 293 x10^3/uL (140-400) Neutrophils (%) (Auto) 71 % (31-73) Lymphocytes (%) (Auto) 17 % (24-48) Monocytes (%) (Auto) 11 % (0-9) Eosinophils (%) (Auto) 2 % (0-3) Basophils (%) (Auto) 0 % (0-3) Neutrophils # (Auto) 8.6 x10^3uL (1.8-7.7) Lymphocytes # (Auto) 2.0 x10^3/uL (1.0-4.8) Monocytes # (Auto) 1.3 x10^3/uL (0.0-1.1) Eosinophils # (Auto) 0.2 x10^3/uL (0.0-0.7) Basophils # (Auto) 0.0 x10^3/uL (0.0-0.2) Sodium Level 141 mmol/L (136-145) Potassium Level 3.8 mmol/L (3.5-5.1) Chloride Level 104 mmol/L (98-107) Carbon Dioxide Level 27 mmol/L (21-32) Anion Gap 10 (6-14) Blood Urea Nitrogen 21 mg/dL (8-26) Creatinine 0.6 mg/dL (0.7-1.3) Estimated GFR (Cockcroft-Gault) 133.6 Glucose Level 99 mg/dL (70-99) Calcium Level 8.7 mg/dL (8.5-10.1) Microbiology 04/17/17 Blood Culture - Final, Complete NO GROWTH AFTER 5 DAYS Medications Current Medications Heparin Sodium (Porcine) (Heparin Sodium) 10,000 unit STK-MED ONCE .ROUTE ; Start 04/17/17 at 19:03; Stop 04/17/17 at 19:04; Status DC Heparin Sodium (Porcine) (Heparin Sodium) 4,000 unit 1X ONCE IV Last administered on 04/17/17 19:05; Start 04/17/17 at 19:15; Stop 04/17/17 at 19:49; Status DC Sodium Chloride 1,000 ml @ 1,000 mls/hr Q1H IV Last administered on 04/17/17 19:07; Start 04/17/17 at 19:07; Stop 04/17/17 at 20:06; Status DC Midazolam HCl 100 ml @ As Directed STK-MED ONCE IV ; Start 04/17/17 at 19:15; Stop 04/17/17 at 19:16; Status DC Etomidate (Amidate) 20 mg STK-MED ONCE IV ; Start 04/17/17 at 19:15; Stop at 19:16; Status DC Succinylcholine Chloride (Anectine) 200 mg STK-MED ONCE .ROUTE ; Start 04/17/17 at 19:16; Stop 04/17/17 at 19:17; Status DC Heparin Sodium/ Sodium Chloride 1,500 ml @ As Directed STK-MED ONCE .ROUTE ; Start 04/17/17 at 19:24; Stop 04/17/17 at 19:25; Status DC Lidocaine HCl 20 ml STK-MED ONCE .ROUTE ; Start 04/17/17 at 19:24; Stop 04/17/17 at 19:25; Status DC Iodixanol (Visipaque 320) 100 ml STK-MED ONCE .ROUTE ; Start 04/17/17 at 19:24; Stop 04/17/17 at 19:25; Status DC Dopamine HCl/ Dextrose 250 ml @ 0 mls/hr CONT PRN IV SEE I/O RECORD Last administered on 04/17/17 19:32; Start 04/17/17 at 19:30; Stop 04/17/17 at 20:54; Status DC Dopamine HCl/ Dextrose 250 ml @ As Directed STK-MED ONCE IV ; Start 04/17/17 at 19:30; Stop 04/17/17 at 19:31; Status DC Ondansetron HCl (Zofran) 4 mg PRN Q8HRS PRN IV NAUSEA/VOMITING; Start 04/17/17 at 19:30; Stop 04/18/17 at 19:29; Status DC Sodium Chloride 1,000 ml @ 100 mls/hr Q10H IV Last administered on 04/18/17 12 :35; Start 04/17/17 at 19:30; Stop 04/18/17 at 19:29; Status DC Acetaminophen (Tylenol) 650 mg PRN Q4HRS PRN PO FEVER; Start 04/17/17 at 19:30; Stop 04/18/17 at 19:29; Status DC Heparin Sodium (Porcine) (Heparin Sodium) 10,000 unit STK-MED ONCE .ROUTE ; Start 04/17/17 at 20:16; Stop 04/17/17 at 20:17; Status DC Tirofiban/Sodium Chloride 0 ml @ As Directed STK-MED ONCE IV ; Start 04/17/17 at 20:16; Stop 04/17/17 at 20:17; Status DC Famotidine (Pepcid) 20 mg QHS IVP Last administered on 04/17/17 22:30; Start at 21:00; Stop 04/19/17 at 08:05; Status DC Etomidate (Amidate) 20 mg 1X ONCE IV Last administered on 04/17/17 19:00; Start 04/17/17 at 20:30; Stop 04/17/17 at 21:05; Status DC Succinylcholine Chloride (Anectine) 100 mg 1X ONCE IV Last administered on 04/17 19:00; Start 04/17/17 at 20:30; Stop 04/17/17 at 21:07; Status DC Lidocaine HCl/ Dextrose 500 ml @ 0 mls/hr 1X ONCE IV Last administered on 18:55; Start 04/17/17 at 20:30; Stop 04/17/17 at 21:08; Status DC Dopamine HCl/ Dextrose 250 ml @ 0 mls/hr CONT PRN IV SEE I/O RECORD Last administered on 04/20/17 09:36; Start 04/17/17 at 20:30 Heparin Sodium/ Dextrose 500 ml @ As Directed STK-MED ONCE IV ; Start 04/17/17 at 20:43; Stop 04/17/17 at 20:44; Status DC Heparin Sodium/ Dextrose 500 ml @ 0 mls/hr CONT PRN IV SEE I/O RECORD Last administered on 04/19/17 01:48; Start 04/17/17 at 20:45; Stop 04/19/17 at 16:41; Status DC Midazolam HCl (Versed) 5 mg 1X ONCE IV Last administered on 04/17/17 19:17; Start 04/17/17 at 21:00; Stop 04/17/17 at 21:07; Status DC Heparin Sodium (Porcine) (Heparin Sodium) 2,000 unit 1X ONCE IV Last administered on 04/17/17 20:59; Start 04/17/17 at 21:00; Stop 04/17/17 at 21:06; Status DC Iodixanol (Visipaque 320) 134 ml 1X ONCE IART Last administered on 04/17/17 20 :58; Start 04/17/17 at 21:00; Stop 04/17/17 at 21:04; Status DC Lidocaine HCl 20 ml 1X ONCE IJ Last administered on 04/17/17 20:58; Start 04/17 at 21:00; Stop 04/17/17 at 21:08; Status DC Fentanyl Citrate 30 ml @ As Directed STK-MED ONCE IV ; Start 04/17/17 at 21:09; Stop 04/17/17 at 21:10; Status DC Sodium Chloride 1,000 ml @ 1,000 mls/hr Q1H IV Last administered on 04/17/17 23:30; Start 04/17/17 at 21:30; Stop 04/18/17 at 03:42; Status DC Fentanyl Citrate (Fentanyl 2ml Vial) 25 mcg PRN Q30MIN PRN IV SED; Start at 21:30; Stop 04/21/17 at 14:35; Status DC Lorazepam (Ativan) 1 mg PRN Q30MIN PRN IV SEDATION Last administered on 20:49; Start 04/17/17 at 21:30; Stop 04/20/17 at 21:45; Status DC Fentanyl Citrate 30 ml @ 2.5 mls/hr CONT PRN PRN IV IVF Last administered on 13:30; Start 04/17/17 at 21:30; Stop 04/21/17 at 11:35; Status DC Propofol 100 ml @ 0 mls/hr CONT PRN IV SEE I/O RECORD Last administered on 09:26; Start 04/17/17 at 21:30; Stop 04/21/17 at 11:35; Status DC Vecuronium [place] (Norcuron Bolus) DOSE AT 0.1 mg/kg PRN Q30MIN PRN IV SHIVERING Last administered on 04/18/17 16:00; Start 04/17/17 at 21:30; Stop 04/21 at 11:35; Status DC Meperidine HCl (Demerol) 12.5 mg PRN Q30MIN PRN IV SHIVERING Last administered on 04/18/17 04:17; Start 04/17/17 at 21:30; Stop 04/18/17 at 04:18; Status DC Multi-Ingred Cream/Lotion/Oil/ Oint (Artificial Tears Eye Oint) 1 balaji PRN Q6HRS PRN OU 0.5 INCH FOR DRY EYE Last administered on 04/18/17 23:57; Start at 21:30; Stop 04/21/17 at 14:35; Status DC Famotidine (Pepcid) 20 mg BID IVP Last administered on 04/21/17 09:00; Start at 09:00; Stop 04/21/17 at 14:35; Status DC Aspirin (Aspirin) 300 mg DAILY CO Last administered on 04/21/17 09:00; Start at 09:00; Stop 04/21/17 at 14:35; Status DC Sodium Chloride (Normal Saline Flush) 3 ml QSHIFT PRN IV AFTER MEDS AND BLOOD DRAWS; Start 04/17/17 at 21:30; Stop 04/21/17 at 14:35; Status DC Acetaminophen (Tylenol) 650 mg Q6HRS NG ; Start 04/18/17 at 00:00; Stop 04/18/17 at 23:59; Status DC Acetaminophen (Acetaminophen Supp) 650 mg PRN Q6HRS PRN CO MILD PAIN / TEMP Last administered on 04/19/17 12:20; Start 04/18/17 at 21:30; Stop 04/21/17 at 14: 35; Status DC Acetaminophen (Tylenol) 650 mg PRN Q6HRS PRN NG MILD PAIN / TEMP; Start at 21:30; Stop 04/21/17 at 14:35; Status DC Info 1 ea DAILY PRN MC PER PROTOCOL; Start 04/19/17 at 21:30; Stop 04/21/17 at 14 :35; Status DC Heparin Sodium/ Dextrose 500 ml @ 0 mls/hr CONT PRN IV SEE I/O RECORD; Start at 21:30; Stop 04/19/17 at 07:26; Status DC Heparin Sodium (Porcine) (Heparin Sodium) 1,450 unit PRN Q6HRS PRN IV FOR UFH LEVEL LESS THAN 0.2; Start 04/17/17 at 21:30; Stop 04/19/17 at 16:41; Status DC Sodium Chloride 1,000 ml @ 60 mls/hr [id number] IV Last administered on 04/19/17 10:21; Start 04/17/17 at 21:45; Stop 04/19/17 at 18:15; Status DC Midazolam HCl 100 ml @ 0 mls/hr CONT PRN IV SEE I/O RECORD; Start 04/17/17 at 22 :00; Stop 04/21/17 at 11:35; Status DC Sodium Bicarbonate 100 meq 1X ONCE IV Last administered on 04/18/17 02:02; Start 04/18/17 at 00:00; Stop 04/18/17 at 00:01; Status DC Amiodarone HCl 900 mg/Dextrose 518 ml @ 0 mls/hr 1X ONCE IV Last administered on 04/18/17 08:00; Start 04/18/17 at 08:00; Stop 04/18/17 at 08:01; Status DC Pneumococcal Polyvalent Vaccine (Do NOT chart on this placeholder) 1 each PRN DAILY PRN MC UNABLE TO RESPOND; Start 04/18/17 at 08:45; Status Cancel Amiodarone HCl 900 mg/Dextrose 518 ml @ 34.53 mls/ hr CONT PRN IV SEE I/O RECORD; Start 04/18/17 at 09:45; Stop 04/20/17 at 02:29; Status DC Potassium Chloride 50 ml @ 50 mls/hr 1X ONCE IV ; Start 04/18/17 at 10:30; Stop 04/18/17 at 10:30; Status DC Potassium Chloride 100 ml @ 100 mls/hr Q1H IV Last administered on 04/18/17 11 :39; Start 04/18/17 at 10:30; Stop 04/18/17 at 12:29; Status DC Ephedrine Sulfate 50 mg STK-MED ONCE IV ; Start 04/18/17 at 14:56; Stop 04/18/17 at 14:57; Status DC Potassium Chloride 50 ml @ 50 mls/hr Q1H IV Last administered on 04/18/17 19:23 ; Start 04/18/17 at 17:30; Stop 04/18/17 at 20:29; Status DC Magnesium Sulfate/ Dextrose 100 ml @ 100 mls/hr 1X ONCE IV Last administered on 04/18/17 17:10; Start 04/18/17 at 17:30; Stop 04/18/17 at 18:29; Status DC Calcium Gluconate (Calcium Gluconate) 1,000 mg 1X ONCE IV Last administered on 04/18/17 17:08; Start 04/18/17 at 17:15; Stop 04/18/17 at 17:16; Status DC Epinephrine HCl (EPINEPHrine SYRINGE) 1 mg STK-MED ONCE .ROUTE ; Start 04/17/17 at 17:03; Stop 04/18/17 at 17:03; Status DC Info (Anti-Coagulation Monitoring By Pharmacy) 1 each PRN DAILY PRN MC SEE COMMENTS Last administered on 04/23/17 08:11; Start 04/19/17 at 08:15; Stop 04/26 at 11:13; Status DC Chlorhexidine Gluconate (Peridex) 15 ml BID MM Last administered on 04/20/17 21 :47; Start 04/19/17 at 09:00; Stop 04/21/17 at 11:35; Status DC Amiodarone HCl 450 mg/Dextrose 259 ml @ 17.26 mls/ hr CONT PRN IV SEE I/O RECORD Last administered on 04/23/17 05:16; Start 04/19/17 at 13:00; Stop at 08:11; Status DC Midazolam HCl (Versed) 5 mg STK-MED ONCE .ROUTE ; Start 04/19/17 at 16:21; Stop 04/19/17 at 16:22; Status DC Midazolam HCl (Versed) 1 mg PRN Q2HR PRN IV SEDATION FOR VENT; Start 04/19/17 at 16:30; Stop 04/21/17 at 11:35; Status DC Fentanyl Citrate (Fentanyl 2ml Vial) 25 mcg PRN Q2HR PRN IV PAIN Last administered on 04/23/17 01:21; Start 04/19/17 at 16:30 Fentanyl Citrate (Fentanyl 2ml Vial) 50 mcg PRN Q2HR PRN IV PAIN Last administered on 04/22/17 02:56; Start 04/19/17 at 16:30 Midazolam HCl (Versed) 2 mg PRN Q2HR PRN IV SEDATION FOR VENT Last administered on 04/20/17 07:24; Start 04/19/17 at 16:30; Stop 04/23/17 at 16:35; Status DC Heparin Sodium/ Dextrose 500 ml @ 0 mls/hr CONT PRN IV SEE I/O RECORD Last administered on 04/20/17 07:26; Start 04/19/17 at 16:45; Stop 04/26/17 at 11:13; Status DC Heparin Sodium (Porcine) (Heparin Sodium) 1,450 unit PRN Q6HRS PRN IV FOR UFH LEVEL LESS THAN 0.2 Last administered on 04/19/17 20:56; Start 04/19/17 at 16:45 Midazolam HCl (Versed) 2 mg 1X ONCE IV Last administered on 04/19/17 16:45; Start 04/19/17 at 16:45; Stop 04/19/17 at 16:46; Status DC Sodium Chloride 1,000 ml @ 100 mls/hr Q10H IV Last administered on 04/21/17 03 :38; Start 04/19/17 at 18:15; Stop 04/21/17 at 11:35; Status DC Magnesium Sulfate/ Dextrose 50 ml @ 25 mls/hr 1X ONCE IV Last administered on 04/20/17 12:22; Start 04/20/17 at 11:45; Stop 04/20/17 at 13:44; Status DC Haloperidol Lactate (Haldol) 5 mg 1X ONCE IVP ; Start 04/20/17 at 22:00; Stop at 22:01; Status DC Lorazepam (Ativan) 1 mg PRN Q3HRS PRN IV ANXIETY / AGITATION Last administered on 04/23/17 21:46; Start 04/20/17 at 21:30 Potassium Chloride 50 ml @ 25 mls/hr Q2H IV Last administered on 04/21/17 15:07 ; Start 04/21/17 at 07:00; Stop 04/21/17 at 14:59; Status DC Pneumococcal Polyvalent Vaccine (Pneumovax 23) 0.5 ml ONCE ONCE VAX IM Last administered on 04/25/17 15:45; Start 04/22/17 at 09:00; Stop 04/22/17 at 09:01; Status DC Magnesium Sulfate/ Dextrose 100 ml @ 100 mls/hr 1X ONCE IV ; Start 04/21/17 at 13:00; Stop 04/21/17 at 13:59; Status Cancel Magnesium Sulfate/ Dextrose 100 ml @ 25 mls/hr 1X ONCE IV ; Start 04/21/17 at 13:00; Stop 04/21/17 at 16:59; Status Cancel Magnesium Sulfate/ Dextrose 50 ml @ 25 mls/hr 1X ONCE IV Last administered on 04/21/17 15:06; Start 04/21/17 at 13:00; Stop 04/21/17 at 14:59; Status DC Sodium Chloride 1,000 ml @ 100 mls/hr Q10H IV Last administered on 04/22/17 09 :36; Start 04/21/17 at 14:45; Stop 04/22/17 at 11:20; Status DC Midazolam HCl (Versed) 5 mg STK-MED ONCE .ROUTE ; Start 04/21/17 at 17:29; Stop 04/21/17 at 17:30; Status DC Midazolam HCl (Versed) 5 mg 1X ONCE IV Last administered on 04/21/17 19:15; Start 04/21/17 at 19:15; Stop 04/21/17 at 19:16; Status DC Amino Acids/ Glycerin/ Electrolytes 1,000 ml @ 75 mls/hr [id number] IV Last administered on 04/26/17 12:20; Start 04/22/17 at 11:30 Aspirin (Aspirin) 300 mg DAILY CO Last administered on 04/26/17 09:48; Start 04/23/17 at 09:00 Haloperidol Lactate (Haldol) 5 mg 1X ONCE IVP Last administered on 04/23/17 06 :46; Start 04/23/17 at 07:00; Stop 04/23/17 at 07:01; Status DC Furosemide (Lasix) 40 mg [id number] IVP Last administered on 04/24/17 08:50; Start 04/23/17 at 09:00; Stop 04/24/17 at 10:23; Status DC Haloperidol Lactate (Haldol) 5 mg PRN Q8HRS PRN IVP AGITATION Last administered on 04/23/17 21:46; Start 04/23/17 at 10:30 Potassium Chloride 100 ml @ 100 mls/hr Q1H IV Last administered on 04/24/17 14 :30; Start 04/24/17 at 09:30; Stop 04/24/17 at 13:29; Status DC Furosemide (Lasix) 20 mg DAILY IVP Last administered on 04/26/17 09:41; Start 04/25/17 at 09:00 Barium Sulfate (Varibar Thin Liquid Apple) 148 gm 1X ONCE PO Last administered on 04/25/17 14:47; Start 04/25/17 at 14:30; Stop 04/25/17 at 14:31 ; Status DC Sodium Chloride (Normal Saline Flush) 3 ml QSHIFT PRN IV AFTER MEDS AND BLOOD DRAWS; Start 04/26/17 at 12:00 Cefazolin Sodium 1 gm/Sodium Chloride 50 ml @ 100 mls/hr 1X ONCE IV ; Start at 06:00; Stop 04/27/17 at 06:29; Status UNV Vancomycin HCl 250 ml @ 250 mls/hr 1X PREOP PRN IV PRIOR TO PROCEDURE; Start 04/26/17 at 06:00; Stop 04/27/17 at 05:59 Fentanyl Citrate (Fentanyl 2ml Vial) 25 mcg PRN Q5MIN PRN IV MILD PAIN; Start 04/27/17 at 07:00; Stop 04/28/17 at 06:59 Fentanyl Citrate (Fentanyl 2ml Vial) 50 mcg PRN Q5MIN PRN IV MODERATE PAIN; Start 04/27/17 at 07:00; Stop 04/28/17 at 06:59 Morphine Sulfate 1 mg PRN Q10MIN PRN IV SEVERE PAIN; Start 04/27/17 at 07:00; Stop 04/28/17 at 06:59 Ringer's Solution 1,000 ml @ 30 mls/hr Q24H IV ; Start 04/27/17 at 07:00; Stop 04/27/17 at 18:59 Lidocaine HCl 2 ml PRN 1X PRN ID PRIOR TO IV START; Start 04/27/17 at 07:00; Stop 04/28/17 at 06:59 Hydromorphone HCl (Dilaudid) 0.5 mg PRN Q10MIN PRN IV SEV PAIN, Second choice; Start 04/27/17 at 07:00; Stop 04/28/17 at 06:59 Prochlorperazine Edisylate (Compazine) 5 mg PACU PRN PRN IV NAUSEA, MRX1; Start 04/27/17 at 07:00; Stop 04/28/17 at 06:59 Active Scripts Active Reported [No home meds] Vitals/I & O Vital Sign - Last 24 Hours 04/25/17 04/25/17 04/25/17 04/26/17 19:45 19:45 22:22 03:15 Temp 98.4 98.4 97.6 98.4 98.4 97.6 Pulse 60 62 55 Resp 16 16 16 B/P (MAP) 96/55 (69) 96/51 (66) 104/60 (75) Pulse Ox 95 97 96 O2 Delivery Room Air Room Air Room Air Room Air 04/26/17 04/26/17 04/26/17 07:00 08:00 10:58 Temp 97.1 97.2 97.1 97.2 Pulse 50 56 Resp 18 18 B/P (MAP) 101/41 (61) 112/54 (73) Pulse Ox 95 92 O2 Delivery Room Air Room Air Room Air O2 Flow Rate 2.0 Intake and Output 04/25/17 04/25/17 04/26/17 15:00 23:00 07:00 Intake Total 150 ml 0 ml 0 ml Output Total 400 ml 800 ml Balance 150 ml -400 ml -800 ml Nutrition Consultation Dietary Evaluation: Recommendations by RD: PPN/TPN Comments: Continue PPN @ 75 ml/hr to meet short term nutrition needs Plans for PEG Tube placement tomorrow- Rec. start with continuous feeds when medically appropriate: Fibersource HN, goal rate 50 ml/hr. Start at 10 ml/hr, increase by 15 ml/hr q8h to goal rate. Flushes 175 cc q6h if no IVF's and when PPN is d/c'd Discussed option of continuous vs. 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
--- NOTE | 2017-04-26 13:16 | PDOC ---
PULMONARY PROGRESS NOTES Subjective EXTUBATED 04/20 FULLY RESPONSIVE NO RESP COMPLAINTS Vitals Vital Signs Date Time Temp Pulse Resp B/P (MAP) Pulse Ox O2 Delivery O2 Flow Rate FiO2 04/26/17 10:58 97.2 56 18 112/54 (73) 92 Room Air 97.2 04/26/17 08:00 2.0 General: Alert, No acute distress Lungs: Clear Cardiovascular: S1, S2 Abdomen: Soft, Non-tender Neuro Exam: Alert Extremities: No Edema Skin: Warm Labs Laboratory Tests Test 04/25/17 03:50 04/25/17 03:55 04/26/17 04:55 Sodium Level 142 mmol/L (136-145) 141 mmol/L (136-145) Potassium Level 3.8 mmol/L (3.5-5.1) 3.8 mmol/L (3.5-5.1) Chloride Level 106 mmol/L (98-107) 104 mmol/L (98-107) Carbon Dioxide Level 29 mmol/L (21-32) 27 mmol/L (21-32) Anion Gap 7 (6-14) 10 (6-14) Blood Urea Nitrogen 21 mg/dL (8-26) 21 mg/dL (8-26) Creatinine 0.6 mg/dL (0.7-1.3) 0.6 mg/dL (0.7-1.3) Estimated GFR (Cockcroft-Gault) 133.6 133.6 Glucose Level 99 mg/dL (70-99) 99 mg/dL (70-99) Calcium Level 7.8 mg/dL (8.5-10.1) 8.7 mg/dL (8.5-10.1) White Blood Count 12.3 x10^3/uL (4.0-11.0) 12.1 x10^3/uL (4.0-11.0) Red Blood Count 2.75 x10^6/uL (4.30-5.70) 3.04 x10^6/uL (4.30-5.70) Hemoglobin 9.8 g/dL (13.0-17.5) 10.8 g/dL (13.0-17.5) Hematocrit 29.0 % (39.0-53.0) 31.3 % (39.0-53.0) Mean Corpuscular Volume 105 fL (79-100) 103 fL (79-100) Mean Corpuscular Hemoglobin 36 pg (25-35) 36 pg (25-35) Mean Corpuscular Hemoglobin Concent 34 g/dL (31-37) 35 g/dL (31-37) Red Cell Distribution Width 13.5 % (11.5-14.5) 13.7 % (11.5-14.5) Platelet Count 192 x10^3/uL (140-400) 293 x10^3/uL (140-400) Neutrophils (%) (Auto) 74 % (31-73) 71 % (31-73) Lymphocytes (%) (Auto) 12 % (24-48) 17 % (24-48) Monocytes (%) (Auto) 13 % (0-9) 11 % (0-9) Eosinophils (%) (Auto) 2 % (0-3) 2 % (0-3) Basophils (%) (Auto) 0 % (0-3) 0 % (0-3) Neutrophils # (Auto) 9.1 x10^3uL (1.8-7.7) 8.6 x10^3uL (1.8-7.7) Lymphocytes # (Auto) 1.5 x10^3/uL (1.0-4.8) 2.0 x10^3/uL (1.0-4.8) Monocytes # (Auto) 1.6 x10^3/uL (0.0-1.1) 1.3 x10^3/uL (0.0-1.1) Eosinophils # (Auto) 0.2 x10^3/uL (0.0-0.7) 0.2 x10^3/uL (0.0-0.7) Basophils # (Auto) 0.0 x10^3/uL (0.0-0.2) 0.0 x10^3/uL (0.0-0.2) Laboratory Tests Test 04/26/17 04:55 White Blood Count 12.1 x10^3/uL (4.0-11.0) Red Blood Count 3.04 x10^6/uL (4.30-5.70) Hemoglobin 10.8 g/dL (13.0-17.5) Hematocrit 31.3 % (39.0-53.0) Mean Corpuscular Volume 103 fL (79-100) Mean Corpuscular Hemoglobin 36 pg (25-35) Mean Corpuscular Hemoglobin Concent 35 g/dL (31-37) Red Cell Distribution Width 13.7 % (11.5-14.5) Platelet Count 293 x10^3/uL (140-400) Neutrophils (%) (Auto) 71 % (31-73) Lymphocytes (%) (Auto) 17 % (24-48) Monocytes (%) (Auto) 11 % (0-9) Eosinophils (%) (Auto) 2 % (0-3) Basophils (%) (Auto) 0 % (0-3) Neutrophils # (Auto) 8.6 x10^3uL (1.8-7.7) Lymphocytes # (Auto) 2.0 x10^3/uL (1.0-4.8) Monocytes # (Auto) 1.3 x10^3/uL (0.0-1.1) Eosinophils # (Auto) 0.2 x10^3/uL (0.0-0.7) Basophils # (Auto) 0.0 x10^3/uL (0.0-0.2) Sodium Level 141 mmol/L (136-145) Potassium Level 3.8 mmol/L (3.5-5.1) Chloride Level 104 mmol/L (98-107) Carbon Dioxide Level 27 mmol/L (21-32) Anion Gap 10 (6-14) Blood Urea Nitrogen 21 mg/dL (8-26) Creatinine 0.6 mg/dL (0.7-1.3) Estimated GFR (Cockcroft-Gault) 133.6 Glucose Level 99 mg/dL (70-99) Calcium Level 8.7 mg/dL (8.5-10.1) Medications Active Scripts Medications Dose Route/Sig Max Daily Dose Days Date Category [No home meds] 04/18/17 Reported Comments CXR 04/25 resolved CHF, mild residual LLL atelectasis Brief cath note. Initial AO pressure 98/58, post IABP Ao 136/78 Coronaries Left main. 45-50% lesion. LAD. Mid 95% lesion. Distal collaterals to the RCA. LCX. Proximal 80% lesion, OM1 85% lesion. RCA. Proximal chronic occlusion with distal collaterals from the RCA and LAD. No LV gram. AO root and abd. aorta without significant lesions. IABP placed from right femoral access without complications. Conclusions. 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 IABP placed with significant improvement in BP. Will consider for CABG. The patient remains on a ventilator. Discussed with the patients family. Full report to follow. Impression . ACUTE RESPIRATORY FAILURE SEC TO CARDIAC ARREST VF/DEFIBRILLATED IN FIELD CAD PER CARD(MV CAD) HYPOKALEMIA METABOLIC ENCEPHALOPATHY, CLEARED CARDIOGENIC SHOCK POA, RESOLVED DYSPHAGIA URINARY RETENTION Plan . RESPIRATORY STATUS IS COMPENSATED (resolved CHF 04/25, mild residual LLL atelectasis) NPO / PEG IN AM AMIODARONE PER CARDS OFF FOLLOW CARD INPUT , CABG IN FUTURE AFTER REHAB D/W KAREN GONZALEZ MD Apr 26, 2017 13:16
[2017-04-26 14:57] VITALS: BP 116/71
[2017-04-26 19:38] VITALS: BP 100/61
[2017-04-26 22:26] VITALS: BP 105/56
[2017-04-27 03:13] VITALS: BP 97/53
[2017-04-27] MEDS: AMINO AC 3%/ELECTROLYTE/GLYCER 1,000 ML IV SCH ×2 (04:11→22:01)
[2017-04-27 04:43] LABS: BASO % 0 % (0-3); EOS % 3 % (0-3); HEMATOCRIT 29.2 % (39.0-53.0); HEMOGLOBIN 10.4 g/dL (13.0-17.5); LYMPH # 2.3 x10^3/uL (1.0-4.8); LYMPH % 19 % (24-48); MEAN CORPUSCULAR HEMOGLOBIN 37 pg (25-35); MEAN CORPUSCULAR HGB CONC 36 g/dL (31-37); MEAN CORPUSCULAR VOLUME 103 fL (79-100); MONO % 11 % (0-9); NEUT % 66 % (31-73); PLATELET COUNT 296 x10^3/uL (140-400); RED BLOOD COUNT 2.83 x10^6/uL (4.30-5.70); RED CELL DISTRIBUTION WIDTH 13.8 % (11.5-14.5); WHITE BLOOD COUNT 12.1 x10^3/uL (4.0-11.0)
[2017-04-27 04:56] LABS: CALCIUM 8.8 mg/dL (8.5-10.1); CREATININE 0.7 mg/dL (0.7-1.3); GFR 111.8; POTASSIUM 4.1 mmol/L (3.5-5.1)
[2017-04-27 07:00] VITALS: BP 112/57
[2017-04-27] MEDS ORDERED: PROCHLORPERAZINE 10 MG/2 ML VIAL. IV PRN (07:00)
[2017-04-27] MEDS ORDERED: HYDROmorphone 2 MG/ML VIAL IV PRN (07:00)
[2017-04-27] MEDS ORDERED: MORPHINE SULFATE 2 MG/ML DISP.SYRIN. IV PRN (07:00)
[2017-04-27] MEDS: IV RINGERS,LACTATED 1000ML 1,000 ML IV SCH ×2 (07:00→09:19)
[2017-04-27] MEDS ORDERED: fentaNYL PF VIAL 100 MCG/2 ML VIAL IV PRN ×2 (07:00)
[2017-04-27] MEDS ORDERED: LIDOCAINE 1% 1 ML SYRINGE. ID PRN (07:00)
[2017-04-27 07:49] LABS: INR 1.1 (0.8-1.1); PROTHROMBIN TIME PATIENT 13.9 SEC (11.7-14.0)
[2017-04-27] MEDS ORDERED: PROPOFOL 0 ML IV ONE (09:29)
[2017-04-27] MEDS ORDERED: PROPOFOL 20 ML IV ONE (09:29)
--- NOTE | 2017-04-27 09:50 | PDOC4 ---
PROCEDURE Procedure EGD/PEG Indication: bolus dysphagia/aspiration risk. Meds: per anesthesia. Findings: E--normal, GEJ at 40cm. G--normal D--normal to second portion. --20F PEG placed uneventully. Brief re-endoscopy confirms good placement. Eli. well. IMP: Successful PEG. REC: Water flushes when not using tube. Meds ok per tube today. If no problems, start feedings in am. Abdominal binder at all times. Thanks. BRITNEY HOYT MD Apr 27, 2017 09:50
--- NOTE | 2017-04-27 09:56 | PDOC ---
PROGRESS NOTES Assessment Problems Medical Problems: (1) STEMI (ST elevation myocardial infarction) Status: Acute Anoxic encephalopathy. Metabolic encephalopathy, cleared S/p cardiac arrest, received hypothermia. Respiratory failure. STEMI, acute Pulmonary edema. HTN Weight loss Substance use/abuse, smoking and drinking. Dysphagia, note swallow evaluation Plan PEG today Rehabilitation Subjective No complaints Objective Vital Signs Date Time Temp Pulse Resp B/P (MAP) Pulse Ox O2 Delivery O2 Flow Rate FiO2 04/27/17 09:11 98.3 54 20 97 98.3 04/27/17 09:09 Room Air 2.0 04/27/17 07:00 112/57 (75) Intake and Output 04/27/17 07:00 Intake Total 0 ml Output Total 1650 ml Balance -1650 ml Intake Oral 0 ml Output Urine Total 1650 ml # Bowel Movements 2 PHYSICAL EXAM Alert. Oriented to time, place and person. PERRL. EOMI. CN: no focal findings. Muscle tone: normal. Muscle strength: 5-/5 DTR: 2+ Plantar reflex: Flexor Gait: not examined in bed. Sensory exam: no abnormal findings. No cerebellar signs elicited. Review of Relevant I have reviewed the following items erna (where applicable) has been applied. Labs Laboratory Tests Test 04/26/17 04:55 04/27/17 04:10 04/27/17 07:05 04/27/17 07:23 White Blood Count 12.1 x10^3/uL (4.0-11.0) 12.1 x10^3/uL (4.0-11.0) Red Blood Count 3.04 x10^6/uL (4.30-5.70) 2.83 x10^6/uL (4.30-5.70) Hemoglobin 10.8 g/dL (13.0-17.5) 10.4 g/dL (13.0-17.5) Hematocrit 31.3 % (39.0-53.0) 29.2 % (39.0-53.0) Mean Corpuscular Volume 103 fL (79-100) 103 fL (79-100) Mean Corpuscular Hemoglobin 36 pg (25-35) 37 pg (25-35) Mean Corpuscular Hemoglobin Concent 35 g/dL (31-37) 36 g/dL (31-37) Red Cell Distribution Width 13.7 % (11.5-14.5) 13.8 % (11.5-14.5) Platelet Count 293 x10^3/uL (140-400) 296 x10^3/uL (140-400) Neutrophils (%) (Auto) 71 % (31-73) 66 % (31-73) Lymphocytes (%) (Auto) 17 % (24-48) 19 % (24-48) Monocytes (%) (Auto) 11 % (0-9) 11 % (0-9) Eosinophils (%) (Auto) 2 % (0-3) 3 % (0-3) Basophils (%) (Auto) 0 % (0-3) 0 % (0-3) Neutrophils # (Auto) 8.6 x10^3uL (1.8-7.7) 8.1 x10^3uL (1.8-7.7) Lymphocytes # (Auto) 2.0 x10^3/uL (1.0-4.8) 2.3 x10^3/uL (1.0-4.8) Monocytes # (Auto) 1.3 x10^3/uL (0.0-1.1) 1.3 x10^3/uL (0.0-1.1) Eosinophils # (Auto) 0.2 x10^3/uL (0.0-0.7) 0.4 x10^3/uL (0.0-0.7) Basophils # (Auto) 0.0 x10^3/uL (0.0-0.2) 0.0 x10^3/uL (0.0-0.2) Sodium Level 141 mmol/L (136-145) 141 mmol/L (136-145) Potassium Level 3.8 mmol/L (3.5-5.1) 4.1 mmol/L (3.5-5.1) Chloride Level 104 mmol/L (98-107) 105 mmol/L (98-107) Carbon Dioxide Level 27 mmol/L (21-32) 27 mmol/L (21-32) Anion Gap 10 (6-14) 9 (6-14) Blood Urea Nitrogen 21 mg/dL (8-26) 25 mg/dL (8-26) Creatinine 0.6 mg/dL (0.7-1.3) 0.7 mg/dL (0.7-1.3) Estimated GFR (Cockcroft-Gault) 133.6 111.8 Glucose Level 99 mg/dL (70-99) 97 mg/dL (70-99) Calcium Level 8.7 mg/dL (8.5-10.1) 8.8 mg/dL (8.5-10.1) Prothrombin Time 13.9 SEC (11.7-14.0) Prothromb Time International Ratio 1.1 (0.8-1.1) Glucose (Fingerstick) 93 mg/dL (70-99) Laboratory Tests Test 04/27/17 04:10 04/27/17 07:05 04/27/17 07:23 White Blood Count 12.1 x10^3/uL (4.0-11.0) Red Blood Count 2.83 x10^6/uL (4.30-5.70) Hemoglobin 10.4 g/dL (13.0-17.5) Hematocrit 29.2 % (39.0-53.0) Mean Corpuscular Volume 103 fL (79-100) Mean Corpuscular Hemoglobin 37 pg (25-35) Mean Corpuscular Hemoglobin Concent 36 g/dL (31-37) Red Cell Distribution Width 13.8 % (11.5-14.5) Platelet Count 296 x10^3/uL (140-400) Neutrophils (%) (Auto) 66 % (31-73) Lymphocytes (%) (Auto) 19 % (24-48) Monocytes (%) (Auto) 11 % (0-9) Eosinophils (%) (Auto) 3 % (0-3) Basophils (%) (Auto) 0 % (0-3) Neutrophils # (Auto) 8.1 x10^3uL (1.8-7.7) Lymphocytes # (Auto) 2.3 x10^3/uL (1.0-4.8) Monocytes # (Auto) 1.3 x10^3/uL (0.0-1.1) Eosinophils # (Auto) 0.4 x10^3/uL (0.0-0.7) Basophils # (Auto) 0.0 x10^3/uL (0.0-0.2) Sodium Level 141 mmol/L (136-145) Potassium Level 4.1 mmol/L (3.5-5.1) Chloride Level 105 mmol/L (98-107) Carbon Dioxide Level 27 mmol/L (21-32) Anion Gap 9 (6-14) Blood Urea Nitrogen 25 mg/dL (8-26) Creatinine 0.7 mg/dL (0.7-1.3) Estimated GFR (Cockcroft-Gault) 111.8 Glucose Level 97 mg/dL (70-99) Calcium Level 8.8 mg/dL (8.5-10.1) Prothrombin Time 13.9 SEC (11.7-14.0) Prothromb Time International Ratio 1.1 (0.8-1.1) Glucose (Fingerstick) 93 mg/dL (70-99) Microbiology 04/17/17 Blood Culture - Final, Complete NO GROWTH AFTER 5 DAYS Medications Current Medications Heparin Sodium (Porcine) (Heparin Sodium) 10,000 unit STK-MED ONCE .ROUTE ; Start 04/17/17 at 19:03; Stop 04/17/17 at 19:04; Status DC Heparin Sodium (Porcine) (Heparin Sodium) 4,000 unit 1X ONCE IV Last administered on 04/17/17 19:05; Start 04/17/17 at 19:15; Stop 04/17/17 at 19:49; Status DC Sodium Chloride 1,000 ml @ 1,000 mls/hr Q1H IV Last administered on 04/17/17 19:07; Start 04/17/17 at 19:07; Stop 04/17/17 at 20:06; Status DC Midazolam HCl 100 ml @ As Directed STK-MED ONCE IV ; Start 04/17/17 at 19:15; Stop 04/17/17 at 19:16; Status DC Etomidate (Amidate) 20 mg STK-MED ONCE IV ; Start 04/17/17 at 19:15; Stop at 19:16; Status DC Succinylcholine Chloride (Anectine) 200 mg STK-MED ONCE .ROUTE ; Start 04/17/17 at 19:16; Stop 04/17/17 at 19:17; Status DC Heparin Sodium/ Sodium Chloride 1,500 ml @ As Directed STK-MED ONCE .ROUTE ; Start 04/17/17 at 19:24; Stop 04/17/17 at 19:25; Status DC Lidocaine HCl 20 ml STK-MED ONCE .ROUTE ; Start 04/17/17 at 19:24; Stop 04/17/17 at 19:25; Status DC Iodixanol (Visipaque 320) 100 ml STK-MED ONCE .ROUTE ; Start 04/17/17 at 19:24; Stop 04/17/17 at 19:25; Status DC Dopamine HCl/ Dextrose 250 ml @ 0 mls/hr CONT PRN IV SEE I/O RECORD Last administered on 04/17/17 19:32; Start 04/17/17 at 19:30; Stop 04/17/17 at 20:54; Status DC Dopamine HCl/ Dextrose 250 ml @ As Directed STK-MED ONCE IV ; Start 04/17/17 at 19:30; Stop 04/17/17 at 19:31; Status DC Ondansetron HCl (Zofran) 4 mg PRN Q8HRS PRN IV NAUSEA/VOMITING; Start 04/17/17 at 19:30; Stop 04/18/17 at 19:29; Status DC Sodium Chloride 1,000 ml @ 100 mls/hr Q10H IV Last administered on 04/18/17 12 :35; Start 04/17/17 at 19:30; Stop 04/18/17 at 19:29; Status DC Acetaminophen (Tylenol) 650 mg PRN Q4HRS PRN PO FEVER; Start 04/17/17 at 19:30; Stop 04/18/17 at 19:29; Status DC Heparin Sodium (Porcine) (Heparin Sodium) 10,000 unit STK-MED ONCE .ROUTE ; Start 04/17/17 at 20:16; Stop 04/17/17 at 20:17; Status DC Tirofiban/Sodium Chloride 0 ml @ As Directed STK-MED ONCE IV ; Start 04/17/17 at 20:16; Stop 04/17/17 at 20:17; Status DC Famotidine (Pepcid) 20 mg QHS IVP Last administered on 04/17/17 22:30; Start at 21:00; Stop 04/19/17 at 08:05; Status DC Etomidate (Amidate) 20 mg 1X ONCE IV Last administered on 04/17/17 19:00; Start 04/17/17 at 20:30; Stop 04/17/17 at 21:05; Status DC Succinylcholine Chloride (Anectine) 100 mg 1X ONCE IV Last administered on 04/17 19:00; Start 04/17/17 at 20:30; Stop 04/17/17 at 21:07; Status DC Lidocaine HCl/ Dextrose 500 ml @ 0 mls/hr 1X ONCE IV Last administered on 18:55; Start 04/17/17 at 20:30; Stop 04/17/17 at 21:08; Status DC Dopamine HCl/ Dextrose 250 ml @ 0 mls/hr CONT PRN IV SEE I/O RECORD Last administered on 04/20/17 09:36; Start 04/17/17 at 20:30 Heparin Sodium/ Dextrose 500 ml @ As Directed STK-MED ONCE IV ; Start 04/17/17 at 20:43; Stop 04/17/17 at 20:44; Status DC Heparin Sodium/ Dextrose 500 ml @ 0 mls/hr CONT PRN IV SEE I/O RECORD Last administered on 04/19/17 01:48; Start 04/17/17 at 20:45; Stop 04/19/17 at 16:41; Status DC Midazolam HCl (Versed) 5 mg 1X ONCE IV Last administered on 04/17/17 19:17; Start 04/17/17 at 21:00; Stop 04/17/17 at 21:07; Status DC Heparin Sodium (Porcine) (Heparin Sodium) 2,000 unit 1X ONCE IV Last administered on 04/17/17 20:59; Start 04/17/17 at 21:00; Stop 04/17/17 at 21:06; Status DC Iodixanol (Visipaque 320) 134 ml 1X ONCE IART Last administered on 04/17/17 20 :58; Start 04/17/17 at 21:00; Stop 04/17/17 at 21:04; Status DC Lidocaine HCl 20 ml 1X ONCE IJ Last administered on 04/17/17 20:58; Start 04/17 at 21:00; Stop 04/17/17 at 21:08; Status DC Fentanyl Citrate 30 ml @ As Directed STK-MED ONCE IV ; Start 04/17/17 at 21:09; Stop 04/17/17 at 21:10; Status DC Sodium Chloride 1,000 ml @ 1,000 mls/hr Q1H IV Last administered on 04/17/17 23:30; Start 04/17/17 at 21:30; Stop 04/18/17 at 03:42; Status DC Fentanyl Citrate (Fentanyl 2ml Vial) 25 mcg PRN Q30MIN PRN IV SED; Start at 21:30; Stop 04/21/17 at 14:35; Status DC Lorazepam (Ativan) 1 mg PRN Q30MIN PRN IV SEDATION Last administered on 20:49; Start 04/17/17 at 21:30; Stop 04/20/17 at 21:45; Status DC Fentanyl Citrate 30 ml @ 2.5 mls/hr CONT PRN PRN IV IVF Last administered on 13:30; Start 04/17/17 at 21:30; Stop 04/21/17 at 11:35; Status DC Propofol 100 ml @ 0 mls/hr CONT PRN IV SEE I/O RECORD Last administered on 09:26; Start 04/17/17 at 21:30; Stop 04/21/17 at 11:35; Status DC Vecuronium Simpson (Norcuron Bolus) DOSE AT 0.1 mg/kg PRN Q30MIN PRN IV SHIVERING Last administered on 04/18/17 16:00; Start 04/17/17 at 21:30; Stop 04/21 at 11:35; Status DC Meperidine HCl (Demerol) 12.5 mg PRN Q30MIN PRN IV SHIVERING Last administered on 04/18/17 04:17; Start 04/17/17 at 21:30; Stop 04/18/17 at 04:18; Status DC Multi-Ingred Cream/Lotion/Oil/ Oint (Artificial Tears Eye Oint) 1 balaji PRN Q6HRS PRN OU 0.5 INCH FOR DRY EYE Last administered on 04/18/17 23:57; Start at 21:30; Stop 04/21/17 at 14:35; Status DC Famotidine (Pepcid) 20 mg BID IVP Last administered on 04/21/17 09:00; Start at 09:00; Stop 04/21/17 at 14:35; Status DC Aspirin (Aspirin) 300 mg DAILY LA Last administered on 04/21/17 09:00; Start at 09:00; Stop 04/21/17 at 14:35; Status DC Sodium Chloride (Normal Saline Flush) 3 ml QSHIFT PRN IV AFTER MEDS AND BLOOD DRAWS; Start 04/17/17 at 21:30; Stop 04/21/17 at 14:35; Status DC Acetaminophen (Tylenol) 650 mg Q6HRS NG ; Start 04/18/17 at 00:00; Stop 04/18/17 at 23:59; Status DC Acetaminophen (Acetaminophen Supp) 650 mg PRN Q6HRS PRN LA MILD PAIN / TEMP Last administered on 04/19/17 12:20; Start 04/18/17 at 21:30; Stop 04/21/17 at 14: 35; Status DC Acetaminophen (Tylenol) 650 mg PRN Q6HRS PRN NG MILD PAIN / TEMP; Start at 21:30; Stop 04/21/17 at 14:35; Status DC Info 1 ea DAILY PRN MC PER PROTOCOL; Start 04/19/17 at 21:30; Stop 04/21/17 at 14 :35; Status DC Heparin Sodium/ Dextrose 500 ml @ 0 mls/hr CONT PRN IV SEE I/O RECORD; Start at 21:30; Stop 04/19/17 at 07:26; Status DC Heparin Sodium (Porcine) (Heparin Sodium) 1,450 unit PRN Q6HRS PRN IV FOR UFH LEVEL LESS THAN 0.2; Start 04/17/17 at 21:30; Stop 04/19/17 at 16:41; Status DC Sodium Chloride 1,000 ml @ 60 mls/hr [id number] IV Last administered on 04/19/17 10:21; Start 04/17/17 at 21:45; Stop 04/19/17 at 18:15; Status DC Midazolam HCl 100 ml @ 0 mls/hr CONT PRN IV SEE I/O RECORD; Start 04/17/17 at 22 :00; Stop 04/21/17 at 11:35; Status DC Sodium Bicarbonate 100 meq 1X ONCE IV Last administered on 04/18/17 02:02; Start 04/18/17 at 00:00; Stop 04/18/17 at 00:01; Status DC Amiodarone HCl 900 mg/Dextrose 518 ml @ 0 mls/hr 1X ONCE IV Last administered on 04/18/17 08:00; Start 04/18/17 at 08:00; Stop 04/18/17 at 08:01; Status DC Pneumococcal Polyvalent Vaccine (Do NOT chart on this placeholder) 1 each PRN DAILY PRN MC UNABLE TO RESPOND; Start 04/18/17 at 08:45; Status Cancel Amiodarone HCl 900 mg/Dextrose 518 ml @ 34.53 mls/ hr CONT PRN IV SEE I/O RECORD; Start 04/18/17 at 09:45; Stop 04/20/17 at 02:29; Status DC Potassium Chloride 50 ml @ 50 mls/hr 1X ONCE IV ; Start 04/18/17 at 10:30; Stop 04/18/17 at 10:30; Status DC Potassium Chloride 100 ml @ 100 mls/hr Q1H IV Last administered on 04/18/17 11 :39; Start 04/18/17 at 10:30; Stop 04/18/17 at 12:29; Status DC Ephedrine Sulfate 50 mg STK-MED ONCE IV ; Start 04/18/17 at 14:56; Stop 04/18/17 at 14:57; Status DC Potassium Chloride 50 ml @ 50 mls/hr Q1H IV Last administered on 04/18/17 19:23 ; Start 04/18/17 at 17:30; Stop 04/18/17 at 20:29; Status DC Magnesium Sulfate/ Dextrose 100 ml @ 100 mls/hr 1X ONCE IV Last administered on 04/18/17 17:10; Start 04/18/17 at 17:30; Stop 04/18/17 at 18:29; Status DC Calcium Gluconate (Calcium Gluconate) 1,000 mg 1X ONCE IV Last administered on 04/18/17 17:08; Start 04/18/17 at 17:15; Stop 04/18/17 at 17:16; Status DC Epinephrine HCl (EPINEPHrine SYRINGE) 1 mg STK-MED ONCE .ROUTE ; Start 04/17/17 at 17:03; Stop 04/18/17 at 17:03; Status DC Info (Anti-Coagulation Monitoring By Pharmacy) 1 each PRN DAILY PRN MC SEE COMMENTS Last administered on 04/23/17 08:11; Start 04/19/17 at 08:15; Stop 04/26 at 11:13; Status DC Chlorhexidine Gluconate (Peridex) 15 ml BID MM Last administered on 04/20/17 21 :47; Start 04/19/17 at 09:00; Stop 04/21/17 at 11:35; Status DC Amiodarone HCl 450 mg/Dextrose 259 ml @ 17.26 mls/ hr CONT PRN IV SEE I/O RECORD Last administered on 04/23/17 05:16; Start 04/19/17 at 13:00; Stop at 08:11; Status DC Midazolam HCl (Versed) 5 mg STK-MED ONCE .ROUTE ; Start 04/19/17 at 16:21; Stop 04/19/17 at 16:22; Status DC Midazolam HCl (Versed) 1 mg PRN Q2HR PRN IV SEDATION FOR VENT; Start 04/19/17 at 16:30; Stop 04/21/17 at 11:35; Status DC Fentanyl Citrate (Fentanyl 2ml Vial) 25 mcg PRN Q2HR PRN IV PAIN Last administered on 04/23/17 01:21; Start 04/19/17 at 16:30 Fentanyl Citrate (Fentanyl 2ml Vial) 50 mcg PRN Q2HR PRN IV PAIN Last administered on 04/22/17 02:56; Start 04/19/17 at 16:30 Midazolam HCl (Versed) 2 mg PRN Q2HR PRN IV SEDATION FOR VENT Last administered on 04/20/17 07:24; Start 04/19/17 at 16:30; Stop 04/23/17 at 16:35; Status DC Heparin Sodium/ Dextrose 500 ml @ 0 mls/hr CONT PRN IV SEE I/O RECORD Last administered on 04/20/17 07:26; Start 04/19/17 at 16:45; Stop 04/26/17 at 11:13; Status DC Heparin Sodium (Porcine) (Heparin Sodium) 1,450 unit PRN Q6HRS PRN IV FOR UFH LEVEL LESS THAN 0.2 Last administered on 04/19/17 20:56; Start 04/19/17 at 16:45 Midazolam HCl (Versed) 2 mg 1X ONCE IV Last administered on 04/19/17 16:45; Start 04/19/17 at 16:45; Stop 04/19/17 at 16:46; Status DC Sodium Chloride 1,000 ml @ 100 mls/hr Q10H IV Last administered on 04/21/17 03 :38; Start 04/19/17 at 18:15; Stop 04/21/17 at 11:35; Status DC Magnesium Sulfate/ Dextrose 50 ml @ 25 mls/hr 1X ONCE IV Last administered on 04/20/17 12:22; Start 04/20/17 at 11:45; Stop 04/20/17 at 13:44; Status DC Haloperidol Lactate (Haldol) 5 mg 1X ONCE IVP ; Start 04/20/17 at 22:00; Stop at 22:01; Status DC Lorazepam (Ativan) 1 mg PRN Q3HRS PRN IV ANXIETY / AGITATION Last administered on 04/23/17 21:46; Start 04/20/17 at 21:30 Potassium Chloride 50 ml @ 25 mls/hr Q2H IV Last administered on 04/21/17 15:07 ; Start 04/21/17 at 07:00; Stop 04/21/17 at 14:59; Status DC Pneumococcal Polyvalent Vaccine (Pneumovax 23) 0.5 ml ONCE ONCE VAX IM Last administered on 04/25/17 15:45; Start 04/22/17 at 09:00; Stop 04/22/17 at 09:01; Status DC Magnesium Sulfate/ Dextrose 100 ml @ 100 mls/hr 1X ONCE IV ; Start 04/21/17 at 13:00; Stop 04/21/17 at 13:59; Status Cancel Magnesium Sulfate/ Dextrose 100 ml @ 25 mls/hr 1X ONCE IV ; Start 04/21/17 at 13:00; Stop 04/21/17 at 16:59; Status Cancel Magnesium Sulfate/ Dextrose 50 ml @ 25 mls/hr 1X ONCE IV Last administered on 04/21/17 15:06; Start 04/21/17 at 13:00; Stop 04/21/17 at 14:59; Status DC Sodium Chloride 1,000 ml @ 100 mls/hr Q10H IV Last administered on 04/22/17 09 :36; Start 04/21/17 at 14:45; Stop 04/22/17 at 11:20; Status DC Midazolam HCl (Versed) 5 mg STK-MED ONCE .ROUTE ; Start 04/21/17 at 17:29; Stop 04/21/17 at 17:30; Status DC Midazolam HCl (Versed) 5 mg 1X ONCE IV Last administered on 04/21/17 19:15; Start 04/21/17 at 19:15; Stop 04/21/17 at 19:16; Status DC Amino Acids/ Glycerin/ Electrolytes 1,000 ml @ 75 mls/hr [id number] IV Last administered on 04/27/17 04:11; Start 04/22/17 at 11:30 Aspirin (Aspirin) 300 mg DAILY LA Last administered on 04/26/17 09:48; Start 04/23/17 at 09:00 Haloperidol Lactate (Haldol) 5 mg 1X ONCE IVP Last administered on 04/23/17 06 :46; Start 04/23/17 at 07:00; Stop 04/23/17 at 07:01; Status DC Furosemide (Lasix) 40 mg [id number] IVP Last administered on 04/24/17 08:50; Start 04/23/17 at 09:00; Stop 04/24/17 at 10:23; Status DC Haloperidol Lactate (Haldol) 5 mg PRN Q8HRS PRN IVP AGITATION Last administered on 04/23/17 21:46; Start 04/23/17 at 10:30 Potassium Chloride 100 ml @ 100 mls/hr Q1H IV Last administered on 04/24/17 14 :30; Start 04/24/17 at 09:30; Stop 04/24/17 at 13:29; Status DC Furosemide (Lasix) 20 mg DAILY IVP Last administered on 04/26/17 09:41; Start 04/25/17 at 09:00 Barium Sulfate (Varibar Thin Liquid Apple) 148 gm 1X ONCE PO Last administered on 04/25/17 14:47; Start 04/25/17 at 14:30; Stop 04/25/17 at 14:31 ; Status DC Sodium Chloride (Normal Saline Flush) 3 ml QSHIFT PRN IV AFTER MEDS AND BLOOD DRAWS; Start 04/26/17 at 12:00 Cefazolin Sodium 1 gm/Sodium Chloride 50 ml @ 100 mls/hr 1X ONCE IV ; Start at 06:00; Stop 04/27/17 at 06:29; Status UNV Vancomycin HCl 250 ml @ 250 mls/hr 1X PREOP PRN IV PRIOR TO PROCEDURE; Start 04/26/17 at 06:00; Stop 04/27/17 at 05:59; Status DC Fentanyl Citrate (Fentanyl 2ml Vial) 25 mcg PRN Q5MIN PRN IV MILD PAIN; Start 04/27/17 at 07:00; Stop 04/28/17 at 06:59 Fentanyl Citrate (Fentanyl 2ml Vial) 50 mcg PRN Q5MIN PRN IV MODERATE PAIN; Start 04/27/17 at 07:00; Stop 04/28/17 at 06:59 Morphine Sulfate 1 mg PRN Q10MIN PRN IV SEVERE PAIN; Start 04/27/17 at 07:00; Stop 04/28/17 at 06:59 Ringer's Solution 1,000 ml @ 30 mls/hr Q24H IV Last administered on 04/27/17t 09:19; Start 04/27/17 at 07:00; Stop 04/27/17 at 18:59 Lidocaine HCl 2 ml PRN 1X PRN ID PRIOR TO IV START; Start 04/27/17 at 07:00; Stop 04/28/17 at 06:59 Hydromorphone HCl (Dilaudid) 0.5 mg PRN Q10MIN PRN IV SEV PAIN, Second choice; Start 04/27/17 at 07:00; Stop 04/28/17 at 06:59 Prochlorperazine Edisylate (Compazine) 5 mg PACU PRN PRN IV NAUSEA, MRX1; Start 04/27/17 at 07:00; Stop 04/28/17 at 06:59 Propofol 0 ml @ As Directed STK-MED ONCE IV ; Start 04/27/17 at 09:29; Stop 10/02 at 09:30; Status DC Propofol 20 ml @ As Directed STK-MED ONCE IV ; Start 04/27/17 at 09:29; Stop 10/02 at 09:30; Status DC Active Scripts Active Reported [No home meds] Vitals/I & O Vital Sign - Last 24 Hours 04/26/17 04/26/17 04/26/17 04/26/17 10:58 14:57 19:38 19:55 Temp 97.2 97.3 97.3 97.2 97.3 97.3 Pulse 56 56 59 Resp 18 20 18 B/P (MAP) 112/54 (73) 116/71 (86) 100/61 (74) Pulse Ox 92 100 98 O2 Delivery Room Air Room Air Room Air Room Air 04/26/17 04/27/17 04/27/17 04/27/17 22:26 03:13 07:00 08:00 Temp 97.6 98.0 97.4 97.6 98.0 97.4 Pulse 62 62 51 Resp 16 16 17 B/P (MAP) 105/56 (72) 97/53 (68) 112/57 (75) Pulse Ox 97 95 98 O2 Delivery Room Air Room Air Nasal Cannula Room Air O2 Flow Rate 2.0 2.0 04/27/17 04/27/17 09:09 09:11 Temp 98.3 98.3 Pulse 54 Resp 20 Pulse Ox 97 O2 Delivery Room Air O2 Flow Rate 2.0 Intake and Output 04/26/17 04/26/17 04/27/17 15:00 23:00 07:00 Intake Total 0 ml Output Total 1200 ml 450 ml Balance -1200 ml -450 ml ELADIO CHURCH MD Apr 27, 2017 09:56
[2017-04-27 11:00] VITALS: BP 103/59
--- NOTE | 2017-04-27 11:43 | PDOC ---
PULMONARY PROGRESS NOTES Subjective EXTUBATED 04/20 FULLY RESPONSIVE NO RESP COMPLAINTS Vitals Vital Signs Date Time Temp Pulse Resp B/P (MAP) Pulse Ox O2 Delivery O2 Flow Rate FiO2 04/27/17 10:16 51 20 101/54 96 Room Air 04/27/17 09:50 2 04/27/17 09:11 98.3 98.3 General: Alert, No acute distress Lungs: Clear Cardiovascular: S1, S2 Abdomen: Soft, Non-tender Neuro Exam: Alert Extremities: No Edema Skin: Warm Labs Laboratory Tests Test 04/26/17 04:55 04/27/17 04:10 04/27/17 07:05 04/27/17 07:23 White Blood Count 12.1 x10^3/uL (4.0-11.0) 12.1 x10^3/uL (4.0-11.0) Red Blood Count 3.04 x10^6/uL (4.30-5.70) 2.83 x10^6/uL (4.30-5.70) Hemoglobin 10.8 g/dL (13.0-17.5) 10.4 g/dL (13.0-17.5) Hematocrit 31.3 % (39.0-53.0) 29.2 % (39.0-53.0) Mean Corpuscular Volume 103 fL (79-100) 103 fL (79-100) Mean Corpuscular Hemoglobin 36 pg (25-35) 37 pg (25-35) Mean Corpuscular Hemoglobin Concent 35 g/dL (31-37) 36 g/dL (31-37) Red Cell Distribution Width 13.7 % (11.5-14.5) 13.8 % (11.5-14.5) Platelet Count 293 x10^3/uL (140-400) 296 x10^3/uL (140-400) Neutrophils (%) (Auto) 71 % (31-73) 66 % (31-73) Lymphocytes (%) (Auto) 17 % (24-48) 19 % (24-48) Monocytes (%) (Auto) 11 % (0-9) 11 % (0-9) Eosinophils (%) (Auto) 2 % (0-3) 3 % (0-3) Basophils (%) (Auto) 0 % (0-3) 0 % (0-3) Neutrophils # (Auto) 8.6 x10^3uL (1.8-7.7) 8.1 x10^3uL (1.8-7.7) Lymphocytes # (Auto) 2.0 x10^3/uL (1.0-4.8) 2.3 x10^3/uL (1.0-4.8) Monocytes # (Auto) 1.3 x10^3/uL (0.0-1.1) 1.3 x10^3/uL (0.0-1.1) Eosinophils # (Auto) 0.2 x10^3/uL (0.0-0.7) 0.4 x10^3/uL (0.0-0.7) Basophils # (Auto) 0.0 x10^3/uL (0.0-0.2) 0.0 x10^3/uL (0.0-0.2) Sodium Level 141 mmol/L (136-145) 141 mmol/L (136-145) Potassium Level 3.8 mmol/L (3.5-5.1) 4.1 mmol/L (3.5-5.1) Chloride Level 104 mmol/L (98-107) 105 mmol/L (98-107) Carbon Dioxide Level 27 mmol/L (21-32) 27 mmol/L (21-32) Anion Gap 10 (6-14) 9 (6-14) Blood Urea Nitrogen 21 mg/dL (8-26) 25 mg/dL (8-26) Creatinine 0.6 mg/dL (0.7-1.3) 0.7 mg/dL (0.7-1.3) Estimated GFR (Cockcroft-Gault) 133.6 111.8 Glucose Level 99 mg/dL (70-99) 97 mg/dL (70-99) Calcium Level 8.7 mg/dL (8.5-10.1) 8.8 mg/dL (8.5-10.1) Prothrombin Time 13.9 SEC (11.7-14.0) Prothromb Time International Ratio 1.1 (0.8-1.1) Glucose (Fingerstick) 93 mg/dL (70-99) Laboratory Tests Test 04/27/17 04:10 04/27/17 07:05 04/27/17 07:23 White Blood Count 12.1 x10^3/uL (4.0-11.0) Red Blood Count 2.83 x10^6/uL (4.30-5.70) Hemoglobin 10.4 g/dL (13.0-17.5) Hematocrit 29.2 % (39.0-53.0) Mean Corpuscular Volume 103 fL (79-100) Mean Corpuscular Hemoglobin 37 pg (25-35) Mean Corpuscular Hemoglobin Concent 36 g/dL (31-37) Red Cell Distribution Width 13.8 % (11.5-14.5) Platelet Count 296 x10^3/uL (140-400) Neutrophils (%) (Auto) 66 % (31-73) Lymphocytes (%) (Auto) 19 % (24-48) Monocytes (%) (Auto) 11 % (0-9) Eosinophils (%) (Auto) 3 % (0-3) Basophils (%) (Auto) 0 % (0-3) Neutrophils # (Auto) 8.1 x10^3uL (1.8-7.7) Lymphocytes # (Auto) 2.3 x10^3/uL (1.0-4.8) Monocytes # (Auto) 1.3 x10^3/uL (0.0-1.1) Eosinophils # (Auto) 0.4 x10^3/uL (0.0-0.7) Basophils # (Auto) 0.0 x10^3/uL (0.0-0.2) Sodium Level 141 mmol/L (136-145) Potassium Level 4.1 mmol/L (3.5-5.1) Chloride Level 105 mmol/L (98-107) Carbon Dioxide Level 27 mmol/L (21-32) Anion Gap 9 (6-14) Blood Urea Nitrogen 25 mg/dL (8-26) Creatinine 0.7 mg/dL (0.7-1.3) Estimated GFR (Cockcroft-Gault) 111.8 Glucose Level 97 mg/dL (70-99) Calcium Level 8.8 mg/dL (8.5-10.1) Prothrombin Time 13.9 SEC (11.7-14.0) Prothromb Time International Ratio 1.1 (0.8-1.1) Glucose (Fingerstick) 93 mg/dL (70-99) Medications Active Scripts Medications Dose Route/Sig Max Daily Dose Days Date Category [No home meds] 04/18/17 Reported Comments CXR 04/25 resolved CHF, mild residual LLL atelectasis Brief cath note. Initial AO pressure 98/58, post IABP Ao 136/78 Coronaries Left main. 45-50% lesion. LAD. Mid 95% lesion. Distal collaterals to the RCA. LCX. Proximal 80% lesion, OM1 85% lesion. RCA. Proximal chronic occlusion with distal collaterals from the RCA and LAD. No LV gram. AO root and abd. aorta without significant lesions. IABP placed from right femoral access without complications. Conclusions. 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 IABP placed with significant improvement in BP. Will consider for CABG. The patient remains on a ventilator. Discussed with the patients family. Full report to follow. Impression . ACUTE RESPIRATORY FAILURE SEC TO CARDIAC ARREST VF/DEFIBRILLATED IN FIELD CAD PER CARD(MV CAD) HYPOKALEMIA METABOLIC ENCEPHALOPATHY, CLEARED CARDIOGENIC SHOCK POA, RESOLVED DYSPHAGIA, S/P PEG URINARY RETENTION/ IMPROVED Plan . RESPIRATORY STATUS IS COMPENSATED (resolved CHF 04/25, mild residual LLL atelectasis) S/P PEG OFF 02 FOLLOW CARD INPUT , CABG IN FUTURE AFTER REHAB D/W KAREN GONZALEZ MD Apr 27, 2017 11:43
[2017-04-27] MEDS: FUROSEMIDE 20 MG/2 ML VIAL. IVP SCH (12:21)
--- NOTE | 2017-04-27 12:38 | PDOC ---
CARDIO Progress Notes Date and Time Date of Service 04/27/17 Time of Evaluation 1230 Subjective Subjective: No Chest Pain, No shortness of breath, Other (returned from PEG placement ) Vitals Vitals Vital Signs Date Time Temp Pulse Resp B/P (MAP) Pulse Ox O2 Delivery O2 Flow Rate FiO2 04/27/17 11:00 97.5 51 17 103/59 (74) 100 Nasal Cannula 2.0 97.5 Weight Weight [ ] Input and Output Intake and Output Intake and Output 04/27/17 07:00 Intake Total 0 ml Output Total 1650 ml Balance -1650 ml Intake Oral 0 ml Output Urine Total 1650 ml # Bowel Movements 2 Laboratory Labs Laboratory Tests Test 04/27/17 04:10 04/27/17 07:05 04/27/17 07:23 White Blood Count 12.1 x10^3/uL (4.0-11.0) Red Blood Count 2.83 x10^6/uL (4.30-5.70) Hemoglobin 10.4 g/dL (13.0-17.5) Hematocrit 29.2 % (39.0-53.0) Mean Corpuscular Volume 103 fL (79-100) Mean Corpuscular Hemoglobin 37 pg (25-35) Mean Corpuscular Hemoglobin Concent 36 g/dL (31-37) Red Cell Distribution Width 13.8 % (11.5-14.5) Platelet Count 296 x10^3/uL (140-400) Neutrophils (%) (Auto) 66 % (31-73) Lymphocytes (%) (Auto) 19 % (24-48) Monocytes (%) (Auto) 11 % (0-9) Eosinophils (%) (Auto) 3 % (0-3) Basophils (%) (Auto) 0 % (0-3) Neutrophils # (Auto) 8.1 x10^3uL (1.8-7.7) Lymphocytes # (Auto) 2.3 x10^3/uL (1.0-4.8) Monocytes # (Auto) 1.3 x10^3/uL (0.0-1.1) Eosinophils # (Auto) 0.4 x10^3/uL (0.0-0.7) Basophils # (Auto) 0.0 x10^3/uL (0.0-0.2) Sodium Level 141 mmol/L (136-145) Potassium Level 4.1 mmol/L (3.5-5.1) Chloride Level 105 mmol/L (98-107) Carbon Dioxide Level 27 mmol/L (21-32) Anion Gap 9 (6-14) Blood Urea Nitrogen 25 mg/dL (8-26) Creatinine 0.7 mg/dL (0.7-1.3) Estimated GFR (Cockcroft-Gault) 111.8 Glucose Level 97 mg/dL (70-99) Calcium Level 8.8 mg/dL (8.5-10.1) Prothrombin Time 13.9 SEC (11.7-14.0) Prothromb Time International Ratio 1.1 (0.8-1.1) Glucose (Fingerstick) 93 mg/dL (70-99) Microbiology Micro Microbiology 04/17/17 Blood Culture - Final, Complete NO GROWTH AFTER 5 DAYS Physical Exam HEENT: Neck Supple W Full Motion Chest: Symmetric LUNGS: Clear to Auscultation Heart: S1S2, RRR (tele SB rate 55) Abdomen: Soft N/T Extremities: 2+ Dorsalis Pedis, No Edema Neurology: alert, oriented, follow commands Assessment Assessment 1. VF arrest; no acute ectopies/arrhythmia overnight 2. 3V CAD; LVEF preserved. 3. Cardiogenic shock; resolved 4. Anoxic encephalopathy; improved 5. Dysphagia post arrest; PEG placed tomorrow. per GI 6. Bradycardia, sinus. Asymptomatic Recommendations PEG in place. Convert ASA to oral. Add Plavix Unable to start Amiodarone or BB due to baseline bradycardia. No ZEESHAN with hypotension. LifeVest approved; to be fit later this afternoon. May discharge to rehab from a CV perspective. F/u appointment with Dr. Valdivia in 3 weeks as scheduled. Outpatient followup with CTS as scheduled. JUAN DIEGO RANGEL APRN Apr 27, 2017 12:38
[2017-04-27] MEDS: ASPIRIN ENTERIC COATED 81 MG TABLET.DR. PO SCH (12:45)
[2017-04-27] MEDS: CLOPIDOGREL BISULFATE 75 MG TABLET PO SCH (12:45)
--- NOTE | 2017-04-27 12:46 | PDOC ---
PROGRESS NOTES Chief Complaint Chief Complaint Cardiac arrest s/p code ASSESSMENT AND PLAN: 1. STEMI w/ Vfib, cardiac arrest: successfully coded 04/17. 2. Acute respir failure: intubated at code; extubated on 04/20. no persistent issues 3. Cardiogenic shock 3. Hyp/anoxic encephalopathy: minimal neurol deficits; OT/PT/ST following 4. Hypokalemia: resolved. monitor, replete as indicated 5. Dysphagia: NPO 6. Leukocytosis: reactive, stable. monitor 7. Anemia: macrocytic. prob 2/2 EtOH. obtain anemia profile to r/o vitamin deficiency 8. Dispo: to rehab post PEG/start of tube feeds plan: PEG 04/27 hope dc to rehab tmr on asa, plavix, eventually need CABG, fu with CT as outpt History of Present Illness History of Present Illness no c/o. in good spirits Vitals Vitals Vital Signs Date Time Temp Pulse Resp B/P (MAP) Pulse Ox O2 Delivery O2 Flow Rate FiO2 04/27/17 11:00 97.5 51 17 103/59 (74) 100 Nasal Cannula 2.0 97.5 Physical Exam General: Alert, Cooperative Heart: Normal S1, Normal S2 Lungs: Clear Abdomen: Normal bowel sounds, Soft Extremities: No edema Skin: No rashes, Other (mult bruises over UEs) Labs LABS Laboratory Tests Test 04/27/17 04:10 04/27/17 07:05 04/27/17 07:23 White Blood Count 12.1 x10^3/uL (4.0-11.0) Red Blood Count 2.83 x10^6/uL (4.30-5.70) Hemoglobin 10.4 g/dL (13.0-17.5) Hematocrit 29.2 % (39.0-53.0) Mean Corpuscular Volume 103 fL (79-100) Mean Corpuscular Hemoglobin 37 pg (25-35) Mean Corpuscular Hemoglobin Concent 36 g/dL (31-37) Red Cell Distribution Width 13.8 % (11.5-14.5) Platelet Count 296 x10^3/uL (140-400) Neutrophils (%) (Auto) 66 % (31-73) Lymphocytes (%) (Auto) 19 % (24-48) Monocytes (%) (Auto) 11 % (0-9) Eosinophils (%) (Auto) 3 % (0-3) Basophils (%) (Auto) 0 % (0-3) Neutrophils # (Auto) 8.1 x10^3uL (1.8-7.7) Lymphocytes # (Auto) 2.3 x10^3/uL (1.0-4.8) Monocytes # (Auto) 1.3 x10^3/uL (0.0-1.1) Eosinophils # (Auto) 0.4 x10^3/uL (0.0-0.7) Basophils # (Auto) 0.0 x10^3/uL (0.0-0.2) Sodium Level 141 mmol/L (136-145) Potassium Level 4.1 mmol/L (3.5-5.1) Chloride Level 105 mmol/L (98-107) Carbon Dioxide Level 27 mmol/L (21-32) Anion Gap 9 (6-14) Blood Urea Nitrogen 25 mg/dL (8-26) Creatinine 0.7 mg/dL (0.7-1.3) Estimated GFR (Cockcroft-Gault) 111.8 Glucose Level 97 mg/dL (70-99) Calcium Level 8.8 mg/dL (8.5-10.1) Prothrombin Time 13.9 SEC (11.7-14.0) Prothromb Time International Ratio 1.1 (0.8-1.1) Glucose (Fingerstick) 93 mg/dL (70-99) Review of Systems Review of Systems no fever, chills, chest pain or sob Assessment and Plan Assessmemt and Plan Problems Medical Problems: (1) STEMI (ST elevation myocardial infarction) Status: Acute Problems: Comment Review of Relevant I have reviewed the following items erna (where applicable) has been applied. Labs Laboratory Tests Test 04/26/17 04:55 04/27/17 04:10 04/27/17 07:05 04/27/17 07:23 White Blood Count 12.1 x10^3/uL (4.0-11.0) 12.1 x10^3/uL (4.0-11.0) Red Blood Count 3.04 x10^6/uL (4.30-5.70) 2.83 x10^6/uL (4.30-5.70) Hemoglobin 10.8 g/dL (13.0-17.5) 10.4 g/dL (13.0-17.5) Hematocrit 31.3 % (39.0-53.0) 29.2 % (39.0-53.0) Mean Corpuscular Volume 103 fL (79-100) 103 fL (79-100) Mean Corpuscular Hemoglobin 36 pg (25-35) 37 pg (25-35) Mean Corpuscular Hemoglobin Concent 35 g/dL (31-37) 36 g/dL (31-37) Red Cell Distribution Width 13.7 % (11.5-14.5) 13.8 % (11.5-14.5) Platelet Count 293 x10^3/uL (140-400) 296 x10^3/uL (140-400) Neutrophils (%) (Auto) 71 % (31-73) 66 % (31-73) Lymphocytes (%) (Auto) 17 % (24-48) 19 % (24-48) Monocytes (%) (Auto) 11 % (0-9) 11 % (0-9) Eosinophils (%) (Auto) 2 % (0-3) 3 % (0-3) Basophils (%) (Auto) 0 % (0-3) 0 % (0-3) Neutrophils # (Auto) 8.6 x10^3uL (1.8-7.7) 8.1 x10^3uL (1.8-7.7) Lymphocytes # (Auto) 2.0 x10^3/uL (1.0-4.8) 2.3 x10^3/uL (1.0-4.8) Monocytes # (Auto) 1.3 x10^3/uL (0.0-1.1) 1.3 x10^3/uL (0.0-1.1) Eosinophils # (Auto) 0.2 x10^3/uL (0.0-0.7) 0.4 x10^3/uL (0.0-0.7) Basophils # (Auto) 0.0 x10^3/uL (0.0-0.2) 0.0 x10^3/uL (0.0-0.2) Sodium Level 141 mmol/L (136-145) 141 mmol/L (136-145) Potassium Level 3.8 mmol/L (3.5-5.1) 4.1 mmol/L (3.5-5.1) Chloride Level 104 mmol/L (98-107) 105 mmol/L (98-107) Carbon Dioxide Level 27 mmol/L (21-32) 27 mmol/L (21-32) Anion Gap 10 (6-14) 9 (6-14) Blood Urea Nitrogen 21 mg/dL (8-26) 25 mg/dL (8-26) Creatinine 0.6 mg/dL (0.7-1.3) 0.7 mg/dL (0.7-1.3) Estimated GFR (Cockcroft-Gault) 133.6 111.8 Glucose Level 99 mg/dL (70-99) 97 mg/dL (70-99) Calcium Level 8.7 mg/dL (8.5-10.1) 8.8 mg/dL (8.5-10.1) Prothrombin Time 13.9 SEC (11.7-14.0) Prothromb Time International Ratio 1.1 (0.8-1.1) Glucose (Fingerstick) 93 mg/dL (70-99) Laboratory Tests Test 04/27/17 04:10 04/27/17 07:05 04/27/17 07:23 White Blood Count 12.1 x10^3/uL (4.0-11.0) Red Blood Count 2.83 x10^6/uL (4.30-5.70) Hemoglobin 10.4 g/dL (13.0-17.5) Hematocrit 29.2 % (39.0-53.0) Mean Corpuscular Volume 103 fL (79-100) Mean Corpuscular Hemoglobin 37 pg (25-35) Mean Corpuscular Hemoglobin Concent 36 g/dL (31-37) Red Cell Distribution Width 13.8 % (11.5-14.5) Platelet Count 296 x10^3/uL (140-400) Neutrophils (%) (Auto) 66 % (31-73) Lymphocytes (%) (Auto) 19 % (24-48) Monocytes (%) (Auto) 11 % (0-9) Eosinophils (%) (Auto) 3 % (0-3) Basophils (%) (Auto) 0 % (0-3) Neutrophils # (Auto) 8.1 x10^3uL (1.8-7.7) Lymphocytes # (Auto) 2.3 x10^3/uL (1.0-4.8) Monocytes # (Auto) 1.3 x10^3/uL (0.0-1.1) Eosinophils # (Auto) 0.4 x10^3/uL (0.0-0.7) Basophils # (Auto) 0.0 x10^3/uL (0.0-0.2) Sodium Level 141 mmol/L (136-145) Potassium Level 4.1 mmol/L (3.5-5.1) Chloride Level 105 mmol/L (98-107) Carbon Dioxide Level 27 mmol/L (21-32) Anion Gap 9 (6-14) Blood Urea Nitrogen 25 mg/dL (8-26) Creatinine 0.7 mg/dL (0.7-1.3) Estimated GFR (Cockcroft-Gault) 111.8 Glucose Level 97 mg/dL (70-99) Calcium Level 8.8 mg/dL (8.5-10.1) Prothrombin Time 13.9 SEC (11.7-14.0) Prothromb Time International Ratio 1.1 (0.8-1.1) Glucose (Fingerstick) 93 mg/dL (70-99) Microbiology 04/17/17 Blood Culture - Final, Complete NO GROWTH AFTER 5 DAYS Medications Current Medications Heparin Sodium (Porcine) (Heparin Sodium) 10,000 unit STK-MED ONCE .ROUTE ; Start 04/17/17 at 19:03; Stop 04/17/17 at 19:04; Status DC Heparin Sodium (Porcine) (Heparin Sodium) 4,000 unit 1X ONCE IV Last administered on 04/17/17 19:05; Start 04/17/17 at 19:15; Stop 04/17/17 at 19:49; Status DC Sodium Chloride 1,000 ml @ 1,000 mls/hr Q1H IV Last administered on 04/17/17 19:07; Start 04/17/17 at 19:07; Stop 04/17/17 at 20:06; Status DC Midazolam HCl 100 ml @ As Directed STK-MED ONCE IV ; Start 04/17/17 at 19:15; Stop 04/17/17 at 19:16; Status DC Etomidate (Amidate) 20 mg STK-MED ONCE IV ; Start 04/17/17 at 19:15; Stop at 19:16; Status DC Succinylcholine Chloride (Anectine) 200 mg STK-MED ONCE .ROUTE ; Start 04/17/17 at 19:16; Stop 04/17/17 at 19:17; Status DC Heparin Sodium/ Sodium Chloride 1,500 ml @ As Directed STK-MED ONCE .ROUTE ; Start 04/17/17 at 19:24; Stop 04/17/17 at 19:25; Status DC Lidocaine HCl 20 ml STK-MED ONCE .ROUTE ; Start 04/17/17 at 19:24; Stop 04/17/17 at 19:25; Status DC Iodixanol (Visipaque 320) 100 ml STK-MED ONCE .ROUTE ; Start 04/17/17 at 19:24; Stop 04/17/17 at 19:25; Status DC Dopamine HCl/ Dextrose 250 ml @ 0 mls/hr CONT PRN IV SEE I/O RECORD Last administered on 04/17/17 19:32; Start 04/17/17 at 19:30; Stop 04/17/17 at 20:54; Status DC Dopamine HCl/ Dextrose 250 ml @ As Directed STK-MED ONCE IV ; Start 04/17/17 at 19:30; Stop 04/17/17 at 19:31; Status DC Ondansetron HCl (Zofran) 4 mg PRN Q8HRS PRN IV NAUSEA/VOMITING; Start 04/17/17 at 19:30; Stop 04/18/17 at 19:29; Status DC Sodium Chloride 1,000 ml @ 100 mls/hr Q10H IV Last administered on 04/18/17 12 :35; Start 04/17/17 at 19:30; Stop 04/18/17 at 19:29; Status DC Acetaminophen (Tylenol) 650 mg PRN Q4HRS PRN PO FEVER; Start 04/17/17 at 19:30; Stop 04/18/17 at 19:29; Status DC Heparin Sodium (Porcine) (Heparin Sodium) 10,000 unit STK-MED ONCE .ROUTE ; Start 04/17/17 at 20:16; Stop 04/17/17 at 20:17; Status DC Tirofiban/Sodium Chloride 0 ml @ As Directed STK-MED ONCE IV ; Start 04/17/17 at 20:16; Stop 04/17/17 at 20:17; Status DC Famotidine (Pepcid) 20 mg QHS IVP Last administered on 04/17/17 22:30; Start at 21:00; Stop 04/19/17 at 08:05; Status DC Etomidate (Amidate) 20 mg 1X ONCE IV Last administered on 04/17/17 19:00; Start 04/17/17 at 20:30; Stop 04/17/17 at 21:05; Status DC Succinylcholine Chloride (Anectine) 100 mg 1X ONCE IV Last administered on 04/17 19:00; Start 04/17/17 at 20:30; Stop 04/17/17 at 21:07; Status DC Lidocaine HCl/ Dextrose 500 ml @ 0 mls/hr 1X ONCE IV Last administered on 18:55; Start 04/17/17 at 20:30; Stop 04/17/17 at 21:08; Status DC Dopamine HCl/ Dextrose 250 ml @ 0 mls/hr CONT PRN IV SEE I/O RECORD Last administered on 04/20/17 09:36; Start 04/17/17 at 20:30; Stop 04/27/17 at 12:33; Status DC Heparin Sodium/ Dextrose 500 ml @ As Directed STK-MED ONCE IV ; Start 04/17/17 at 20:43; Stop 04/17/17 at 20:44; Status DC Heparin Sodium/ Dextrose 500 ml @ 0 mls/hr CONT PRN IV SEE I/O RECORD Last administered on 04/19/17 01:48; Start 04/17/17 at 20:45; Stop 04/19/17 at 16:41; Status DC Midazolam HCl (Versed) 5 mg 1X ONCE IV Last administered on 04/17/17 19:17; Start 04/17/17 at 21:00; Stop 04/17/17 at 21:07; Status DC Heparin Sodium (Porcine) (Heparin Sodium) 2,000 unit 1X ONCE IV Last administered on 04/17/17 20:59; Start 04/17/17 at 21:00; Stop 04/17/17 at 21:06; Status DC Iodixanol (Visipaque 320) 134 ml 1X ONCE IART Last administered on 04/17/17 20 :58; Start 04/17/17 at 21:00; Stop 04/17/17 at 21:04; Status DC Lidocaine HCl 20 ml 1X ONCE IJ Last administered on 04/17/17 20:58; Start 04/17 at 21:00; Stop 04/17/17 at 21:08; Status DC Fentanyl Citrate 30 ml @ As Directed STK-MED ONCE IV ; Start 04/17/17 at 21:09; Stop 04/17/17 at 21:10; Status DC Sodium Chloride 1,000 ml @ 1,000 mls/hr Q1H IV Last administered on 04/17/17 23:30; Start 04/17/17 at 21:30; Stop 04/18/17 at 03:42; Status DC Fentanyl Citrate (Fentanyl 2ml Vial) 25 mcg PRN Q30MIN PRN IV SED; Start at 21:30; Stop 04/21/17 at 14:35; Status DC Lorazepam (Ativan) 1 mg PRN Q30MIN PRN IV SEDATION Last administered on 20:49; Start 04/17/17 at 21:30; Stop 04/20/17 at 21:45; Status DC Fentanyl Citrate 30 ml @ 2.5 mls/hr CONT PRN PRN IV IVF Last administered on 13:30; Start 04/17/17 at 21:30; Stop 04/21/17 at 11:35; Status DC Propofol 100 ml @ 0 mls/hr CONT PRN IV SEE I/O RECORD Last administered on 09:26; Start 04/17/17 at 21:30; Stop 04/21/17 at 11:35; Status DC Vecuronium Cool (Norcuron Bolus) DOSE AT 0.1 mg/kg PRN Q30MIN PRN IV SHIVERING Last administered on 04/18/17 16:00; Start 04/17/17 at 21:30; Stop 04/21 at 11:35; Status DC Meperidine HCl (Demerol) 12.5 mg PRN Q30MIN PRN IV SHIVERING Last administered on 04/18/17 04:17; Start 04/17/17 at 21:30; Stop 04/18/17 at 04:18; Status DC Multi-Ingred Cream/Lotion/Oil/ Oint (Artificial Tears Eye Oint) 1 balaji PRN Q6HRS PRN OU 0.5 INCH FOR DRY EYE Last administered on 04/18/17 23:57; Start at 21:30; Stop 04/21/17 at 14:35; Status DC Famotidine (Pepcid) 20 mg BID IVP Last administered on 04/21/17 09:00; Start at 09:00; Stop 04/21/17 at 14:35; Status DC Aspirin (Aspirin) 300 mg DAILY W[place] Last administered on 04/21/17 09:00; Start at 09:00; Stop 04/21/17 at 14:35; Status DC Sodium Chloride (Normal Saline Flush) 3 ml QSHIFT PRN IV AFTER MEDS AND BLOOD DRAWS; Start 04/17/17 at 21:30; Stop 04/21/17 at 14:35; Status DC Acetaminophen (Tylenol) 650 mg Q6HRS NG ; Start 04/18/17 at 00:00; Stop 04/18/17 at 23:59; Status DC Acetaminophen (Acetaminophen Supp) 650 mg PRN Q6HRS PRN W[place] MILD PAIN / TEMP Last administered on 04/19/17 12:20; Start 04/18/17 at 21:30; Stop 04/21/17 at 14: 35; Status DC Acetaminophen (Tylenol) 650 mg PRN Q6HRS PRN NG MILD PAIN / TEMP; Start at 21:30; Stop 04/21/17 at 14:35; Status DC Info 1 ea DAILY PRN MC PER PROTOCOL; Start 04/19/17 at 21:30; Stop 04/21/17 at 14 :35; Status DC Heparin Sodium/ Dextrose 500 ml @ 0 mls/hr CONT PRN IV SEE I/O RECORD; Start at 21:30; Stop 04/19/17 at 07:26; Status DC Heparin Sodium (Porcine) (Heparin Sodium) 1,450 unit PRN Q6HRS PRN IV FOR UFH LEVEL LESS THAN 0.2; Start 04/17/17 at 21:30; Stop 04/19/17 at 16:41; Status DC Sodium Chloride 1,000 ml @ 60 mls/hr [id number] IV Last administered on 04/19/17 10:21; Start 04/17/17 at 21:45; Stop 04/19/17 at 18:15; Status DC Midazolam HCl 100 ml @ 0 mls/hr CONT PRN IV SEE I/O RECORD; Start 04/17/17 at 22 :00; Stop 04/21/17 at 11:35; Status DC Sodium Bicarbonate 100 meq 1X ONCE IV Last administered on 04/18/17 02:02; Start 04/18/17 at 00:00; Stop 04/18/17 at 00:01; Status DC Amiodarone HCl 900 mg/Dextrose 518 ml @ 0 mls/hr 1X ONCE IV Last administered on 04/18/17 08:00; Start 04/18/17 at 08:00; Stop 04/18/17 at 08:01; Status DC Pneumococcal Polyvalent Vaccine (Do NOT chart on this placeholder) 1 each PRN DAILY PRN MC UNABLE TO RESPOND; Start 04/18/17 at 08:45; Status Cancel Amiodarone HCl 900 mg/Dextrose 518 ml @ 34.53 mls/ hr CONT PRN IV SEE I/O RECORD; Start 04/18/17 at 09:45; Stop 04/20/17 at 02:29; Status DC Potassium Chloride 50 ml @ 50 mls/hr 1X ONCE IV ; Start 04/18/17 at 10:30; Stop 04/18/17 at 10:30; Status DC Potassium Chloride 100 ml @ 100 mls/hr Q1H IV Last administered on 04/18/17 11 :39; Start 04/18/17 at 10:30; Stop 04/18/17 at 12:29; Status DC Ephedrine Sulfate 50 mg STK-MED ONCE IV ; Start 04/18/17 at 14:56; Stop 04/18/17 at 14:57; Status DC Potassium Chloride 50 ml @ 50 mls/hr Q1H IV Last administered on 04/18/17 19:23 ; Start 04/18/17 at 17:30; Stop 04/18/17 at 20:29; Status DC Magnesium Sulfate/ Dextrose 100 ml @ 100 mls/hr 1X ONCE IV Last administered on 04/18/17 17:10; Start 04/18/17 at 17:30; Stop 04/18/17 at 18:29; Status DC Calcium Gluconate (Calcium Gluconate) 1,000 mg 1X ONCE IV Last administered on 04/18/17 17:08; Start 04/18/17 at 17:15; Stop 04/18/17 at 17:16; Status DC Epinephrine HCl (EPINEPHrine SYRINGE) 1 mg STK-MED ONCE .ROUTE ; Start 04/17/17 at 17:03; Stop 04/18/17 at 17:03; Status DC Info (Anti-Coagulation Monitoring By Pharmacy) 1 each PRN DAILY PRN MC SEE COMMENTS Last administered on 04/23/17 08:11; Start 04/19/17 at 08:15; Stop 04/26 at 11:13; Status DC Chlorhexidine Gluconate (Peridex) 15 ml BID MM Last administered on 04/20/17 21 :47; Start 04/19/17 at 09:00; Stop 04/21/17 at 11:35; Status DC Amiodarone HCl 450 mg/Dextrose 259 ml @ 17.26 mls/ hr CONT PRN IV SEE I/O RECORD Last administered on 04/23/17 05:16; Start 04/19/17 at 13:00; Stop at 08:11; Status DC Midazolam HCl (Versed) 5 mg STK-MED ONCE .ROUTE ; Start 04/19/17 at 16:21; Stop 04/19/17 at 16:22; Status DC Midazolam HCl (Versed) 1 mg PRN Q2HR PRN IV SEDATION FOR VENT; Start 04/19/17 at 16:30; Stop 04/21/17 at 11:35; Status DC Fentanyl Citrate (Fentanyl 2ml Vial) 25 mcg PRN Q2HR PRN IV PAIN Last administered on 04/23/17 01:21; Start 04/19/17 at 16:30 Fentanyl Citrate (Fentanyl 2ml Vial) 50 mcg PRN Q2HR PRN IV PAIN Last administered on 04/22/17 02:56; Start 04/19/17 at 16:30 Midazolam HCl (Versed) 2 mg PRN Q2HR PRN IV SEDATION FOR VENT Last administered on 04/20/17 07:24; Start 04/19/17 at 16:30; Stop 04/23/17 at 16:35; Status DC Heparin Sodium/ Dextrose 500 ml @ 0 mls/hr CONT PRN IV SEE I/O RECORD Last administered on 04/20/17 07:26; Start 04/19/17 at 16:45; Stop 04/26/17 at 11:13; Status DC Heparin Sodium (Porcine) (Heparin Sodium) 1,450 unit PRN Q6HRS PRN IV FOR UFH LEVEL LESS THAN 0.2 Last administered on 04/19/17 20:56; Start 04/19/17 at 16:45 ; Stop 04/27/17 at 12:33; Status DC Midazolam HCl (Versed) 2 mg 1X ONCE IV Last administered on 04/19/17 16:45; Start 04/19/17 at 16:45; Stop 04/19/17 at 16:46; Status DC Sodium Chloride 1,000 ml @ 100 mls/hr Q10H IV Last administered on 04/21/17 03 :38; Start 04/19/17 at 18:15; Stop 04/21/17 at 11:35; Status DC Magnesium Sulfate/ Dextrose 50 ml @ 25 mls/hr 1X ONCE IV Last administered on 04/20/17 12:22; Start 04/20/17 at 11:45; Stop 04/20/17 at 13:44; Status DC Haloperidol Lactate (Haldol) 5 mg 1X ONCE IVP ; Start 04/20/17 at 22:00; Stop at 22:01; Status DC Lorazepam (Ativan) 1 mg PRN Q3HRS PRN IV ANXIETY / AGITATION Last administered on 04/23/17 21:46; Start 04/20/17 at 21:30 Potassium Chloride 50 ml @ 25 mls/hr Q2H IV Last administered on 04/21/17 15:07 ; Start 04/21/17 at 07:00; Stop 04/21/17 at 14:59; Status DC Pneumococcal Polyvalent Vaccine (Pneumovax 23) 0.5 ml ONCE ONCE VAX IM Last administered on 04/25/17 15:45; Start 04/22/17 at 09:00; Stop 04/22/17 at 09:01; Status DC Magnesium Sulfate/ Dextrose 100 ml @ 100 mls/hr 1X ONCE IV ; Start 04/21/17 at 13:00; Stop 04/21/17 at 13:59; Status Cancel Magnesium Sulfate/ Dextrose 100 ml @ 25 mls/hr 1X ONCE IV ; Start 04/21/17 at 13:00; Stop 04/21/17 at 16:59; Status Cancel Magnesium Sulfate/ Dextrose 50 ml @ 25 mls/hr 1X ONCE IV Last administered on 04/21/17 15:06; Start 04/21/17 at 13:00; Stop 04/21/17 at 14:59; Status DC Sodium Chloride 1,000 ml @ 100 mls/hr Q10H IV Last administered on 04/22/17 09 :36; Start 04/21/17 at 14:45; Stop 04/22/17 at 11:20; Status DC Midazolam HCl (Versed) 5 mg STK-MED ONCE .ROUTE ; Start 04/21/17 at 17:29; Stop 04/21/17 at 17:30; Status DC Midazolam HCl (Versed) 5 mg 1X ONCE IV Last administered on 04/21/17 19:15; Start 04/21/17 at 19:15; Stop 04/21/17 at 19:16; Status DC Amino Acids/ Glycerin/ Electrolytes 1,000 ml @ 75 mls/hr [id number] IV Last administered on 04/27/17 04:11; Start 04/22/17 at 11:30 Aspirin (Aspirin) 300 mg DAILY [place] Last administered on 04/26/17 09:48; Start 04/23/17 at 09:00; Stop 04/27/17 at 12:33; Status DC Haloperidol Lactate (Haldol) 5 mg 1X ONCE IVP Last administered on 04/23/17 06 :46; Start 04/23/17 at 07:00; Stop 04/23/17 at 07:01; Status DC Furosemide (Lasix) 40 mg [id number] IVP Last administered on 04/24/17 08:50; Start 04/23/17 at 09:00; Stop 04/24/17 at 10:23; Status DC Haloperidol Lactate (Haldol) 5 mg PRN Q8HRS PRN IVP AGITATION Last administered on 04/23/17 21:46; Start 04/23/17 at 10:30 Potassium Chloride 100 ml @ 100 mls/hr Q1H IV Last administered on 04/24/17 14 :30; Start 04/24/17 at 09:30; Stop 04/24/17 at 13:29; Status DC Furosemide (Lasix) 20 mg DAILY IVP Last administered on 04/27/17 12:21; Start 04/25/17 at 09:00; Stop 04/27/17 at 12:33; Status DC Barium Sulfate (Varibar Thin Liquid Apple) 148 gm 1X ONCE PO Last administered on 04/25/17 14:47; Start 04/25/17 at 14:30; Stop 04/25/17 at 14:31 ; Status DC Sodium Chloride (Normal Saline Flush) 3 ml QSHIFT PRN IV AFTER MEDS AND BLOOD DRAWS; Start 04/26/17 at 12:00 Cefazolin Sodium 1 gm/Sodium Chloride 50 ml @ 100 mls/hr 1X ONCE IV ; Start at 06:00; Stop 04/27/17 at 06:29; Status UNV Vancomycin HCl 250 ml @ 250 mls/hr 1X PREOP PRN IV PRIOR TO PROCEDURE; Start 04/26/17 at 06:00; Stop 04/27/17 at 05:59; Status DC Fentanyl Citrate (Fentanyl 2ml Vial) 25 mcg PRN Q5MIN PRN IV MILD PAIN; Start 04/27/17 at 07:00; Stop 04/28/17 at 06:59 Fentanyl Citrate (Fentanyl 2ml Vial) 50 mcg PRN Q5MIN PRN IV MODERATE PAIN; Start 04/27/17 at 07:00; Stop 04/28/17 at 06:59 Morphine Sulfate 1 mg PRN Q10MIN PRN IV SEVERE PAIN; Start 04/27/17 at 07:00; Stop 04/28/17 at 06:59 Ringer's Solution 1,000 ml @ 30 mls/hr Q24H IV Last administered on 04/27/17 09:19; Start 04/27/17 at 07:00; Stop 04/27/17 at 18:59 Lidocaine HCl 2 ml PRN 1X PRN ID PRIOR TO IV START; Start 04/27/17 at 07:00; Stop 04/28/17 at 06:59 Hydromorphone HCl (Dilaudid) 0.5 mg PRN Q10MIN PRN IV SEV PAIN, Second choice; Start 04/27/17 at 07:00; Stop 04/28/17 at 06:59 Prochlorperazine Edisylate (Compazine) 5 mg PACU PRN PRN IV NAUSEA, MRX1; Start 04/27/17 at 07:00; Stop 04/28/17 at 06:59 Propofol 0 ml @ As Directed STK-MED ONCE IV ; Start 04/27/17 at 09:29; Stop 10/02 at 09:30; Status DC Propofol 20 ml @ As Directed STK-MED ONCE IV ; Start 04/27/17 at 09:29; Stop 10/02 at 09:30; Status DC Furosemide (Lasix) 20 mg DAILY PO ; Start 04/28/17 at 09:00 Clopidogrel Bisulfate (Plavix) 75 mg DAILYWBKFT PO ; Start 04/27/17 at 12:45 Aspirin (Ecotrin) 81 mg DAILYWBKFT PO ; Start 04/27/17 at 12:45 Active Scripts Active Reported [No home meds] Vitals/I & O Vital Sign - Last 24 Hours 04/26/17 04/26/17 04/26/17 04/26/17 14:57 19:38 19:55 22:26 Temp 97.3 97.3 97.6 97.3 97.3 97.6 Pulse 56 59 62 Resp 20 18 16 B/P (MAP) 116/71 (86) 100/61 (74) 105/56 (72) Pulse Ox 100 98 97 O2 Delivery Room Air Room Air Room Air Room Air 04/27/17 04/27/17 04/27/17 04/27/17 03:13 07:00 08:00 09:09 Temp 98.0 97.4 98.0 97.4 Pulse 62 51 Resp 16 17 B/P (MAP) 97/53 (68) 112/57 (75) Pulse Ox 95 98 O2 Delivery Room Air Nasal Cannula Room Air Room Air O2 Flow Rate 2.0 2.0 2.0 04/27/17 04/27/17 04/27/17 04/27/17 09:11 09:50 10:05 10:16 Temp 98.3 98.3 Pulse 54 50 48 51 Resp 20 16 20 20 B/P (MAP) 95/49 89/52 101/54 Pulse Ox 97 100 94 96 O2 Delivery Nasal Cannula Room Air Room Air O2 Flow Rate 2 04/27/17 11:00 Temp 97.5 97.5 Pulse 51 Resp 17 B/P (MAP) 103/59 (74) Pulse Ox 100 O2 Delivery Nasal Cannula O2 Flow Rate 2.0 Intake and Output 04/26/17 04/26/17 04/27/17 15:00 23:00 07:00 Intake Total 0 ml Output Total 1200 ml 450 ml Balance -1200 ml -450 ml Nutrition Consultation Dietary Evaluation: Recommendations by RD: PPN/TPN Comments: Continue PPN @ 75 ml/hr to meet short term nutrition S/P PEG placement on 04/27, approved to use PEG on 04/28 Rec. start with continuous feeds of Fibersource HN, goal rate 50 ml/hr. Start at 15 ml/hr, increase by 15 ml/hr q8h to goal rate. Flushes 175 cc q6h if no IVF's and when PPN is d/c'd Discussed option of continuous vs. bolus feeds- family would like bolus feeds once pt is tolerating the continuous feeds at goal rate Expected Outcomes/Goals: Tube feeding initiation (new goal) Tolerate the PEG tube feeds at goal rate (New goal) Interpretation of weight loss: >5% in 1 month Malnutrition Findings: Food and Nutrition Intake (Mod: <75% est energy req 7days Food and Nutrition Intake (Sev: <50% est energy req 5days Body Fat Depletion (Non Severe: Mild Depletion Reduced Tangled Yarn Spool Straightener Strength: N/A Malnutrition related to morbid: No Weight Status: Underweight ROYER CAT MD Apr 27, 2017 12:46
[2017-04-27 15:00] VITALS: BP 116/60
[2017-04-27 19:20] VITALS: BP 113/59
[2017-04-27 23:00] VITALS: BP 110/58
[2017-04-28 03:10] VITALS: BP 115/68
[2017-04-28 04:12] LABS: BASO % 0 % (0-3); EOS % 1 % (0-3); HEMATOCRIT 29.4 % (39.0-53.0); HEMOGLOBIN 9.9 g/dL (13.0-17.5); LYMPH % 7 % (24-48); MEAN CORPUSCULAR HEMOGLOBIN 36 pg (25-35); MEAN CORPUSCULAR HGB CONC 34 g/dL (31-37); MEAN CORPUSCULAR VOLUME 106 fL (79-100); MONO % 6 % (0-9); NEUT % 86 % (31-73); PLATELET COUNT 282 x10^3/uL (140-400); RED BLOOD COUNT 2.78 x10^6/uL (4.30-5.70); RED CELL DISTRIBUTION WIDTH 14.3 % (11.5-14.5)
[2017-04-28 04:27] LABS: CALCIUM 8.1 mg/dL (8.5-10.1); CREATININE 0.6 mg/dL (0.7-1.3); GFR 133.6; POTASSIUM 4.1 mmol/L (3.5-5.1)
[2017-04-28 07:00] VITALS: BP 97/56
[2017-04-28 08:09] LABS: PLT ESTIMATE ADEQUATE (ADEQUATE)
[2017-04-28] MEDS ORDERED: FUROSEMIDE 20 MG TABLET PO SCH (09:00)
[2017-04-28] MEDS: AMINO AC 3%/ELECTROLYTE/GLYCER 1,000 ML IV SCH ×2 (09:47→14:10)
[2017-04-28] MEDS: ASPIRIN ENTERIC COATED 81 MG TABLET.DR. PO SCH (10:21)
[2017-04-28] MEDS: CLOPIDOGREL BISULFATE 75 MG TABLET PO SCH (10:21)
--- NOTE | 2017-04-28 10:42 | PDOC ---
Subjective: Subjective: No GI complaints. Objective: Objective: Per RN - tube feeds started this a.m., going well. Vital Signs: Vital Signs Date Time Temp Pulse Resp B/P (MAP) Pulse Ox O2 Delivery O2 Flow Rate FiO2 04/28/17 07:00 98.1 60 17 97/56 (70) 92 Room Air 98.1 04/27/17 15:00 2.0 Labs: Laboratory Tests Test 04/28/17 03:10 White Blood Count 15.0 x10^3/uL Red Blood Count 2.78 x10^6/uL Hemoglobin 9.9 g/dL Hematocrit 29.4 % Mean Corpuscular Volume 106 fL Mean Corpuscular Hemoglobin 36 pg Mean Corpuscular Hemoglobin Concent 34 g/dL Red Cell Distribution Width 14.3 % Platelet Count 282 x10^3/uL Neutrophils (%) (Auto) 86 % Lymphocytes (%) (Auto) 7 % Monocytes (%) (Auto) 6 % Eosinophils (%) (Auto) 1 % Basophils (%) (Auto) 0 % Neutrophils # (Auto) 12.9 x10^3uL Lymphocytes # (Auto) 1.0 x10^3/uL Monocytes # (Auto) 0.9 x10^3/uL Eosinophils # (Auto) 0.1 x10^3/uL Basophils # (Auto) 0.0 x10^3/uL Segmented Neutrophils % 86 % Band Neutrophils % 2 % Lymphocytes % 8 % Monocytes % 4 % Platelet Estimate Adequate Sodium Level 138 mmol/L Potassium Level 4.1 mmol/L Chloride Level 104 mmol/L Carbon Dioxide Level 27 mmol/L Anion Gap 7 Blood Urea Nitrogen 24 mg/dL Creatinine 0.6 mg/dL Estimated GFR (Cockcroft-Gault) 133.6 Glucose Level 92 mg/dL Calcium Level 8.1 mg/dL Imaging: EGD/PEG 04/27/17 E--normal, GEJ at 40cm. G--normal D--normal to second portion. --20F PEG placed uneventully. Brief re-endoscopy confirms good placement. IMP: Successful PEG. PE: GEN: NAD, up to chair LUNGS: clear HEART: RRR ABD: abd binder removed for exam - soft, non-tender, PEG in place NEURO/PSYCH: A & O 3 A/P: Bolus dysphagia s/p PEG 04/27/17 -- PEG looks good, tube feeds started. HOMERO LACEY Apr 28, 2017 10:42
[2017-04-28 11:00] VITALS: BP 106/58
--- NOTE | 2017-04-28 12:34 | PDOC ---
PULMONARY PROGRESS NOTES Subjective EXTUBATED 04/20 NO RESP COMPLAINTS Vitals Vital Signs Date Time Temp Pulse Resp B/P (MAP) Pulse Ox O2 Delivery O2 Flow Rate FiO2 04/28/17 11:00 98.8 57 17 106/58 (74) 100 Room Air 98.8 04/27/17 15:00 2.0 General: Alert, No acute distress Lungs: Clear Cardiovascular: S1, S2 Abdomen: Soft, Non-tender Neuro Exam: Alert Extremities: No Edema Skin: Warm Labs Laboratory Tests Test 04/27/17 04:10 04/27/17 07:05 04/27/17 07:23 04/28/17 03:10 White Blood Count 12.1 x10^3/uL (4.0-11.0) 15.0 x10^3/uL (4.0-11.0) Red Blood Count 2.83 x10^6/uL (4.30-5.70) 2.78 x10^6/uL (4.30-5.70) Hemoglobin 10.4 g/dL (13.0-17.5) 9.9 g/dL (13.0-17.5) Hematocrit 29.2 % (39.0-53.0) 29.4 % (39.0-53.0) Mean Corpuscular Volume 103 fL (79-100) 106 fL (79-100) Mean Corpuscular Hemoglobin 37 pg (25-35) 36 pg (25-35) Mean Corpuscular Hemoglobin Concent 36 g/dL (31-37) 34 g/dL (31-37) Red Cell Distribution Width 13.8 % (11.5-14.5) 14.3 % (11.5-14.5) Platelet Count 296 x10^3/uL (140-400) 282 x10^3/uL (140-400) Neutrophils (%) (Auto) 66 % (31-73) 86 % (31-73) Lymphocytes (%) (Auto) 19 % (24-48) 7 % (24-48) Monocytes (%) (Auto) 11 % (0-9) 6 % (0-9) Eosinophils (%) (Auto) 3 % (0-3) 1 % (0-3) Basophils (%) (Auto) 0 % (0-3) 0 % (0-3) Neutrophils # (Auto) 8.1 x10^3uL (1.8-7.7) 12.9 x10^3uL (1.8-7.7) Lymphocytes # (Auto) 2.3 x10^3/uL (1.0-4.8) 1.0 x10^3/uL (1.0-4.8) Monocytes # (Auto) 1.3 x10^3/uL (0.0-1.1) 0.9 x10^3/uL (0.0-1.1) Eosinophils # (Auto) 0.4 x10^3/uL (0.0-0.7) 0.1 x10^3/uL (0.0-0.7) Basophils # (Auto) 0.0 x10^3/uL (0.0-0.2) 0.0 x10^3/uL (0.0-0.2) Sodium Level 141 mmol/L (136-145) 138 mmol/L (136-145) Potassium Level 4.1 mmol/L (3.5-5.1) 4.1 mmol/L (3.5-5.1) Chloride Level 105 mmol/L (98-107) 104 mmol/L (98-107) Carbon Dioxide Level 27 mmol/L (21-32) 27 mmol/L (21-32) Anion Gap 9 (6-14) 7 (6-14) Blood Urea Nitrogen 25 mg/dL (8-26) 24 mg/dL (8-26) Creatinine 0.7 mg/dL (0.7-1.3) 0.6 mg/dL (0.7-1.3) Estimated GFR (Cockcroft-Gault) 111.8 133.6 Glucose Level 97 mg/dL (70-99) 92 mg/dL (70-99) Calcium Level 8.8 mg/dL (8.5-10.1) 8.1 mg/dL (8.5-10.1) Prothrombin Time 13.9 SEC (11.7-14.0) Prothromb Time International Ratio 1.1 (0.8-1.1) Glucose (Fingerstick) 93 mg/dL (70-99) Segmented Neutrophils % 86 % (35-66) Band Neutrophils % 2 % (0-9) Lymphocytes % 8 % (24-48) Monocytes % 4 % (0-10) Platelet Estimate Adequate (ADEQUATE) Laboratory Tests Test 04/28/17 03:10 White Blood Count 15.0 x10^3/uL (4.0-11.0) Red Blood Count 2.78 x10^6/uL (4.30-5.70) Hemoglobin 9.9 g/dL (13.0-17.5) Hematocrit 29.4 % (39.0-53.0) Mean Corpuscular Volume 106 fL (79-100) Mean Corpuscular Hemoglobin 36 pg (25-35) Mean Corpuscular Hemoglobin Concent 34 g/dL (31-37) Red Cell Distribution Width 14.3 % (11.5-14.5) Platelet Count 282 x10^3/uL (140-400) Neutrophils (%) (Auto) 86 % (31-73) Lymphocytes (%) (Auto) 7 % (24-48) Monocytes (%) (Auto) 6 % (0-9) Eosinophils (%) (Auto) 1 % (0-3) Basophils (%) (Auto) 0 % (0-3) Neutrophils # (Auto) 12.9 x10^3uL (1.8-7.7) Lymphocytes # (Auto) 1.0 x10^3/uL (1.0-4.8) Monocytes # (Auto) 0.9 x10^3/uL (0.0-1.1) Eosinophils # (Auto) 0.1 x10^3/uL (0.0-0.7) Basophils # (Auto) 0.0 x10^3/uL (0.0-0.2) Segmented Neutrophils % 86 % (35-66) Band Neutrophils % 2 % (0-9) Lymphocytes % 8 % (24-48) Monocytes % 4 % (0-10) Platelet Estimate Adequate (ADEQUATE) Sodium Level 138 mmol/L (136-145) Potassium Level 4.1 mmol/L (3.5-5.1) Chloride Level 104 mmol/L (98-107) Carbon Dioxide Level 27 mmol/L (21-32) Anion Gap 7 (6-14) Blood Urea Nitrogen 24 mg/dL (8-26) Creatinine 0.6 mg/dL (0.7-1.3) Estimated GFR (Cockcroft-Gault) 133.6 Glucose Level 92 mg/dL (70-99) Calcium Level 8.1 mg/dL (8.5-10.1) Medications Active Scripts Medications Dose Route/Sig Max Daily Dose Days Date Category [No home meds] 04/18/17 Reported Comments CXR 04/25 resolved CHF, mild residual LLL atelectasis Brief cath note. Initial AO pressure 98/58, post IABP Ao 136/78 Coronaries Left main. 45-50% lesion. LAD. Mid 95% lesion. Distal collaterals to the RCA. LCX. Proximal 80% lesion, OM1 85% lesion. RCA. Proximal chronic occlusion with distal collaterals from the RCA and LAD. No LV gram. AO root and abd. aorta without significant lesions. IABP placed from right femoral access without complications. Conclusions. 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 IABP placed with significant improvement in BP. Will consider for CABG. The patient remains on a ventilator. Discussed with the patients family. Full report to follow. Impression . ACUTE RESPIRATORY FAILURE SEC TO CARDIAC ARREST VF/DEFIBRILLATED IN FIELD CAD PER CARD(MV CAD) METABOLIC ENCEPHALOPATHY, CLEARED CARDIOGENIC SHOCK POA, RESOLVED DYSPHAGIA, S/P PEG URINARY RETENTION/ IMPROVED Plan . RESPIRATORY STATUS IS COMPENSATED (resolved CHF 04/25, mild residual LLL atelectasis) S/P PEG OFF 02 FOLLOW CARD INPUT , CABG IN FUTURE AFTER REHAB AWAITING INS APPROVAL FOR REHAB D/W KAREN GONZALEZ MD Apr 28, 2017 12:34
--- NOTE | 2017-04-28 13:37 | PDOC ---
PROGRESS NOTES Assessment Problems Medical Problems: (1) STEMI (ST elevation myocardial infarction) Status: Acute Anoxic encephalopathy. Metabolic encephalopathy, cleared S/p cardiac arrest, received hypothermia. Respiratory failure. STEMI, acute Pulmonary edema. HTN Weight loss Substance use/abuse, smoking and drinking. Dysphagia, status-post PEG Plan Rehabilitation Discussed with family Subjective No complaints Objective Vital Signs Date Time Temp Pulse Resp B/P (MAP) Pulse Ox O2 Delivery O2 Flow Rate FiO2 04/28/17 11:00 98.8 57 17 106/58 (74) 100 Room Air 98.8 04/27/17 15:00 2.0 Intake and Output 04/28/17 07:00 Intake Total 760 ml Output Total 1085 ml Balance -325 ml Intake Oral 0 ml IV Total 400 ml Tube Feeding 360 ml Output Urine Total 1085 ml # Voids 2 PHYSICAL EXAM Alert. Oriented to time, place and person. Names and repeats well, speech is fluent. PERRL. EOMI. CN: no focal findings. Muscle tone: normal. Muscle strength: 5-/5 DTR: 2+ Plantar reflex: Flexor Gait: not examined in bed. Sensory exam: no abnormal findings. No cerebellar signs elicited. Review of Relevant I have reviewed the following items erna (where applicable) has been applied. Labs Laboratory Tests Test 04/27/17 04:10 04/27/17 07:05 04/27/17 07:23 04/28/17 03:10 White Blood Count 12.1 x10^3/uL (4.0-11.0) 15.0 x10^3/uL (4.0-11.0) Red Blood Count 2.83 x10^6/uL (4.30-5.70) 2.78 x10^6/uL (4.30-5.70) Hemoglobin 10.4 g/dL (13.0-17.5) 9.9 g/dL (13.0-17.5) Hematocrit 29.2 % (39.0-53.0) 29.4 % (39.0-53.0) Mean Corpuscular Volume 103 fL (79-100) 106 fL (79-100) Mean Corpuscular Hemoglobin 37 pg (25-35) 36 pg (25-35) Mean Corpuscular Hemoglobin Concent 36 g/dL (31-37) 34 g/dL (31-37) Red Cell Distribution Width 13.8 % (11.5-14.5) 14.3 % (11.5-14.5) Platelet Count 296 x10^3/uL (140-400) 282 x10^3/uL (140-400) Neutrophils (%) (Auto) 66 % (31-73) 86 % (31-73) Lymphocytes (%) (Auto) 19 % (24-48) 7 % (24-48) Monocytes (%) (Auto) 11 % (0-9) 6 % (0-9) Eosinophils (%) (Auto) 3 % (0-3) 1 % (0-3) Basophils (%) (Auto) 0 % (0-3) 0 % (0-3) Neutrophils # (Auto) 8.1 x10^3uL (1.8-7.7) 12.9 x10^3uL (1.8-7.7) Lymphocytes # (Auto) 2.3 x10^3/uL (1.0-4.8) 1.0 x10^3/uL (1.0-4.8) Monocytes # (Auto) 1.3 x10^3/uL (0.0-1.1) 0.9 x10^3/uL (0.0-1.1) Eosinophils # (Auto) 0.4 x10^3/uL (0.0-0.7) 0.1 x10^3/uL (0.0-0.7) Basophils # (Auto) 0.0 x10^3/uL (0.0-0.2) 0.0 x10^3/uL (0.0-0.2) Sodium Level 141 mmol/L (136-145) 138 mmol/L (136-145) Potassium Level 4.1 mmol/L (3.5-5.1) 4.1 mmol/L (3.5-5.1) Chloride Level 105 mmol/L (98-107) 104 mmol/L (98-107) Carbon Dioxide Level 27 mmol/L (21-32) 27 mmol/L (21-32) Anion Gap 9 (6-14) 7 (6-14) Blood Urea Nitrogen 25 mg/dL (8-26) 24 mg/dL (8-26) Creatinine 0.7 mg/dL (0.7-1.3) 0.6 mg/dL (0.7-1.3) Estimated GFR (Cockcroft-Gault) 111.8 133.6 Glucose Level 97 mg/dL (70-99) 92 mg/dL (70-99) Calcium Level 8.8 mg/dL (8.5-10.1) 8.1 mg/dL (8.5-10.1) Prothrombin Time 13.9 SEC (11.7-14.0) Prothromb Time International Ratio 1.1 (0.8-1.1) Glucose (Fingerstick) 93 mg/dL (70-99) Segmented Neutrophils % 86 % (35-66) Band Neutrophils % 2 % (0-9) Lymphocytes % 8 % (24-48) Monocytes % 4 % (0-10) Platelet Estimate Adequate (ADEQUATE) Laboratory Tests Test 04/28/17 03:10 White Blood Count 15.0 x10^3/uL (4.0-11.0) Red Blood Count 2.78 x10^6/uL (4.30-5.70) Hemoglobin 9.9 g/dL (13.0-17.5) Hematocrit 29.4 % (39.0-53.0) Mean Corpuscular Volume 106 fL (79-100) Mean Corpuscular Hemoglobin 36 pg (25-35) Mean Corpuscular Hemoglobin Concent 34 g/dL (31-37) Red Cell Distribution Width 14.3 % (11.5-14.5) Platelet Count 282 x10^3/uL (140-400) Neutrophils (%) (Auto) 86 % (31-73) Lymphocytes (%) (Auto) 7 % (24-48) Monocytes (%) (Auto) 6 % (0-9) Eosinophils (%) (Auto) 1 % (0-3) Basophils (%) (Auto) 0 % (0-3) Neutrophils # (Auto) 12.9 x10^3uL (1.8-7.7) Lymphocytes # (Auto) 1.0 x10^3/uL (1.0-4.8) Monocytes # (Auto) 0.9 x10^3/uL (0.0-1.1) Eosinophils # (Auto) 0.1 x10^3/uL (0.0-0.7) Basophils # (Auto) 0.0 x10^3/uL (0.0-0.2) Segmented Neutrophils % 86 % (35-66) Band Neutrophils % 2 % (0-9) Lymphocytes % 8 % (24-48) Monocytes % 4 % (0-10) Platelet Estimate Adequate (ADEQUATE) Sodium Level 138 mmol/L (136-145) Potassium Level 4.1 mmol/L (3.5-5.1) Chloride Level 104 mmol/L (98-107) Carbon Dioxide Level 27 mmol/L (21-32) Anion Gap 7 (6-14) Blood Urea Nitrogen 24 mg/dL (8-26) Creatinine 0.6 mg/dL (0.7-1.3) Estimated GFR (Cockcroft-Gault) 133.6 Glucose Level 92 mg/dL (70-99) Calcium Level 8.1 mg/dL (8.5-10.1) Microbiology 04/17/17 Blood Culture - Final, Complete NO GROWTH AFTER 5 DAYS Medications Current Medications Heparin Sodium (Porcine) (Heparin Sodium) 10,000 unit STK-MED ONCE .ROUTE ; Start 04/17/17 at 19:03; Stop 04/17/17 at 19:04; Status DC Heparin Sodium (Porcine) (Heparin Sodium) 4,000 unit 1X ONCE IV Last administered on 04/17/17 19:05; Start 04/17/17 at 19:15; Stop 04/17/17 at 19:49; Status DC Sodium Chloride 1,000 ml @ 1,000 mls/hr Q1H IV Last administered on 04/17/17 19:07; Start 04/17/17 at 19:07; Stop 04/17/17 at 20:06; Status DC Midazolam HCl 100 ml @ As Directed STK-MED ONCE IV ; Start 04/17/17 at 19:15; Stop 04/17/17 at 19:16; Status DC Etomidate (Amidate) 20 mg STK-MED ONCE IV ; Start 04/17/17 at 19:15; Stop at 19:16; Status DC Succinylcholine Chloride (Anectine) 200 mg STK-MED ONCE .ROUTE ; Start 04/17/17 at 19:16; Stop 04/17/17 at 19:17; Status DC Heparin Sodium/ Sodium Chloride 1,500 ml @ As Directed STK-MED ONCE .ROUTE ; Start 04/17/17 at 19:24; Stop 04/17/17 at 19:25; Status DC Lidocaine HCl 20 ml STK-MED ONCE .ROUTE ; Start 04/17/17 at 19:24; Stop 04/17/17 at 19:25; Status DC Iodixanol (Visipaque 320) 100 ml STK-MED ONCE .ROUTE ; Start 04/17/17 at 19:24; Stop 04/17/17 at 19:25; Status DC Dopamine HCl/ Dextrose 250 ml @ 0 mls/hr CONT PRN IV SEE I/O RECORD Last administered on 04/17/17 19:32; Start 04/17/17 at 19:30; Stop 04/17/17 at 20:54; Status DC Dopamine HCl/ Dextrose 250 ml @ As Directed STK-MED ONCE IV ; Start 04/17/17 at 19:30; Stop 04/17/17 at 19:31; Status DC Ondansetron HCl (Zofran) 4 mg PRN Q8HRS PRN IV NAUSEA/VOMITING; Start 04/17/17 at 19:30; Stop 04/18/17 at 19:29; Status DC Sodium Chloride 1,000 ml @ 100 mls/hr Q10H IV Last administered on 04/18/17 12 :35; Start 04/17/17 at 19:30; Stop 04/18/17 at 19:29; Status DC Acetaminophen (Tylenol) 650 mg PRN Q4HRS PRN PO FEVER; Start 04/17/17 at 19:30; Stop 04/18/17 at 19:29; Status DC Heparin Sodium (Porcine) (Heparin Sodium) 10,000 unit STK-MED ONCE .ROUTE ; Start 04/17/17 at 20:16; Stop 04/17/17 at 20:17; Status DC Tirofiban/Sodium Chloride 0 ml @ As Directed STK-MED ONCE IV ; Start 04/17/17 at 20:16; Stop 04/17/17 at 20:17; Status DC Famotidine (Pepcid) 20 mg QHS IVP Last administered on 04/17/17 22:30; Start at 21:00; Stop 04/19/17 at 08:05; Status DC Etomidate (Amidate) 20 mg 1X ONCE IV Last administered on 04/17/17 19:00; Start 04/17/17 at 20:30; Stop 04/17/17 at 21:05; Status DC Succinylcholine Chloride (Anectine) 100 mg 1X ONCE IV Last administered on 04/17 19:00; Start 04/17/17 at 20:30; Stop 04/17/17 at 21:07; Status DC Lidocaine HCl/ Dextrose 500 ml @ 0 mls/hr 1X ONCE IV Last administered on 18:55; Start 04/17/17 at 20:30; Stop 04/17/17 at 21:08; Status DC Dopamine HCl/ Dextrose 250 ml @ 0 mls/hr CONT PRN IV SEE I/O RECORD Last administered on 04/20/17 09:36; Start 04/17/17 at 20:30; Stop 04/27/17 at 12:33; Status DC Heparin Sodium/ Dextrose 500 ml @ As Directed STK-MED ONCE IV ; Start 04/17/17 at 20:43; Stop 04/17/17 at 20:44; Status DC Heparin Sodium/ Dextrose 500 ml @ 0 mls/hr CONT PRN IV SEE I/O RECORD Last administered on 04/19/17 01:48; Start 04/17/17 at 20:45; Stop 04/19/17 at 16:41; Status DC Midazolam HCl (Versed) 5 mg 1X ONCE IV Last administered on 04/17/17 19:17; Start 04/17/17 at 21:00; Stop 04/17/17 at 21:07; Status DC Heparin Sodium (Porcine) (Heparin Sodium) 2,000 unit 1X ONCE IV Last administered on 04/17/17 20:59; Start 04/17/17 at 21:00; Stop 04/17/17 at 21:06; Status DC Iodixanol (Visipaque 320) 134 ml 1X ONCE IART Last administered on 04/17/17 20 :58; Start 04/17/17 at 21:00; Stop 04/17/17 at 21:04; Status DC Lidocaine HCl 20 ml 1X ONCE IJ Last administered on 04/17/17 20:58; Start 04/17 at 21:00; Stop 04/17/17 at 21:08; Status DC Fentanyl Citrate 30 ml @ As Directed STK-MED ONCE IV ; Start 04/17/17 at 21:09; Stop 04/17/17 at 21:10; Status DC Sodium Chloride 1,000 ml @ 1,000 mls/hr Q1H IV Last administered on 04/17/17 23:30; Start 04/17/17 at 21:30; Stop 04/18/17 at 03:42; Status DC Fentanyl Citrate (Fentanyl 2ml Vial) 25 mcg PRN Q30MIN PRN IV SED; Start at 21:30; Stop 04/21/17 at 14:35; Status DC Lorazepam (Ativan) 1 mg PRN Q30MIN PRN IV SEDATION Last administered on 20:49; Start 04/17/17 at 21:30; Stop 04/20/17 at 21:45; Status DC Fentanyl Citrate 30 ml @ 2.5 mls/hr CONT PRN PRN IV IVF Last administered on 13:30; Start 04/17/17 at 21:30; Stop 04/21/17 at 11:35; Status DC Propofol 100 ml @ 0 mls/hr CONT PRN IV SEE I/O RECORD Last administered on 09:26; Start 04/17/17 at 21:30; Stop 04/21/17 at 11:35; Status DC Vecuronium Daykin (Norcuron Bolus) DOSE AT 0.1 mg/kg PRN Q30MIN PRN IV SHIVERING Last administered on 04/18/17 16:00; Start 04/17/17 at 21:30; Stop 04/21 at 11:35; Status DC Meperidine HCl (Demerol) 12.5 mg PRN Q30MIN PRN IV SHIVERING Last administered on 04/18/17 04:17; Start 04/17/17 at 21:30; Stop 04/18/17 at 04:18; Status DC Multi-Ingred Cream/Lotion/Oil/ Oint (Artificial Tears Eye Oint) 1 balaji PRN Q6HRS PRN OU 0.5 INCH FOR DRY EYE Last administered on 04/18/17 23:57; Start at 21:30; Stop 04/21/17 at 14:35; Status DC Famotidine (Pepcid) 20 mg BID IVP Last administered on 04/21/17 09:00; Start at 09:00; Stop 04/21/17 at 14:35; Status DC Aspirin (Aspirin) 300 mg DAILY GA Last administered on 04/21/17 09:00; Start at 09:00; Stop 04/21/17 at 14:35; Status DC Sodium Chloride (Normal Saline Flush) 3 ml QSHIFT PRN IV AFTER MEDS AND BLOOD DRAWS; Start 04/17/17 at 21:30; Stop 04/21/17 at 14:35; Status DC Acetaminophen (Tylenol) 650 mg Q6HRS NG ; Start 04/18/17 at 00:00; Stop 04/18/17 at 23:59; Status DC Acetaminophen (Acetaminophen Supp) 650 mg PRN Q6HRS PRN GA MILD PAIN / TEMP Last administered on 04/19/17 12:20; Start 04/18/17 at 21:30; Stop 04/21/17 at 14: 35; Status DC Acetaminophen (Tylenol) 650 mg PRN Q6HRS PRN NG MILD PAIN / TEMP; Start at 21:30; Stop 04/21/17 at 14:35; Status DC Info 1 ea DAILY PRN MC PER PROTOCOL; Start 04/19/17 at 21:30; Stop 04/21/17 at 14 :35; Status DC Heparin Sodium/ Dextrose 500 ml @ 0 mls/hr CONT PRN IV SEE I/O RECORD; Start at 21:30; Stop 04/19/17 at 07:26; Status DC Heparin Sodium (Porcine) (Heparin Sodium) 1,450 unit PRN Q6HRS PRN IV FOR UFH LEVEL LESS THAN 0.2; Start 04/17/17 at 21:30; Stop 04/19/17 at 16:41; Status DC Sodium Chloride 1,000 ml @ 60 mls/hr [id number] IV Last administered on 04/19/17 10:21; Start 04/17/17 at 21:45; Stop 04/19/17 at 18:15; Status DC Midazolam HCl 100 ml @ 0 mls/hr CONT PRN IV SEE I/O RECORD; Start 04/17/17 at 22 :00; Stop 04/21/17 at 11:35; Status DC Sodium Bicarbonate 100 meq 1X ONCE IV Last administered on 04/18/17 02:02; Start 04/18/17 at 00:00; Stop 04/18/17 at 00:01; Status DC Amiodarone HCl 900 mg/Dextrose 518 ml @ 0 mls/hr 1X ONCE IV Last administered on 04/18/17 08:00; Start 04/18/17 at 08:00; Stop 04/18/17 at 08:01; Status DC Pneumococcal Polyvalent Vaccine (Do NOT chart on this placeholder) 1 each PRN DAILY PRN MC UNABLE TO RESPOND; Start 04/18/17 at 08:45; Status Cancel Amiodarone HCl 900 mg/Dextrose 518 ml @ 34.53 mls/ hr CONT PRN IV SEE I/O RECORD; Start 04/18/17 at 09:45; Stop 04/20/17 at 02:29; Status DC Potassium Chloride 50 ml @ 50 mls/hr 1X ONCE IV ; Start 04/18/17 at 10:30; Stop 04/18/17 at 10:30; Status DC Potassium Chloride 100 ml @ 100 mls/hr Q1H IV Last administered on 04/18/17 11 :39; Start 04/18/17 at 10:30; Stop 04/18/17 at 12:29; Status DC Ephedrine Sulfate 50 mg STK-MED ONCE IV ; Start 04/18/17 at 14:56; Stop 04/18/17 at 14:57; Status DC Potassium Chloride 50 ml @ 50 mls/hr Q1H IV Last administered on 04/18/17 19:23 ; Start 04/18/17 at 17:30; Stop 04/18/17 at 20:29; Status DC Magnesium Sulfate/ Dextrose 100 ml @ 100 mls/hr 1X ONCE IV Last administered on 04/18/17 17:10; Start 04/18/17 at 17:30; Stop 04/18/17 at 18:29; Status DC Calcium Gluconate (Calcium Gluconate) 1,000 mg 1X ONCE IV Last administered on 04/18/17 17:08; Start 04/18/17 at 17:15; Stop 04/18/17 at 17:16; Status DC Epinephrine HCl (EPINEPHrine SYRINGE) 1 mg STK-MED ONCE .ROUTE ; Start 04/17/17 at 17:03; Stop 04/18/17 at 17:03; Status DC Info (Anti-Coagulation Monitoring By Pharmacy) 1 each PRN DAILY PRN MC SEE COMMENTS Last administered on 04/23/17 08:11; Start 04/19/17 at 08:15; Stop 04/26 at 11:13; Status DC Chlorhexidine Gluconate (Peridex) 15 ml BID MM Last administered on 04/20/17 21 :47; Start 04/19/17 at 09:00; Stop 04/21/17 at 11:35; Status DC Amiodarone HCl 450 mg/Dextrose 259 ml @ 17.26 mls/ hr CONT PRN IV SEE I/O RECORD Last administered on 04/23/17 05:16; Start 04/19/17 at 13:00; Stop at 08:11; Status DC Midazolam HCl (Versed) 5 mg STK-MED ONCE .ROUTE ; Start 04/19/17 at 16:21; Stop 04/19/17 at 16:22; Status DC Midazolam HCl (Versed) 1 mg PRN Q2HR PRN IV SEDATION FOR VENT; Start 04/19/17 at 16:30; Stop 04/21/17 at 11:35; Status DC Fentanyl Citrate (Fentanyl 2ml Vial) 25 mcg PRN Q2HR PRN IV PAIN Last administered on 04/23/17 01:21; Start 04/19/17 at 16:30 Fentanyl Citrate (Fentanyl 2ml Vial) 50 mcg PRN Q2HR PRN IV PAIN Last administered on 04/22/17 02:56; Start 04/19/17 at 16:30 Midazolam HCl (Versed) 2 mg PRN Q2HR PRN IV SEDATION FOR VENT Last administered on 04/20/17 07:24; Start 04/19/17 at 16:30; Stop 04/23/17 at 16:35; Status DC Heparin Sodium/ Dextrose 500 ml @ 0 mls/hr CONT PRN IV SEE I/O RECORD Last administered on 04/20/17 07:26; Start 04/19/17 at 16:45; Stop 04/26/17 at 11:13; Status DC Heparin Sodium (Porcine) (Heparin Sodium) 1,450 unit PRN Q6HRS PRN IV FOR UFH LEVEL LESS THAN 0.2 Last administered on 04/19/17 20:56; Start 04/19/17 at 16:45 ; Stop 04/27/17 at 12:33; Status DC Midazolam HCl (Versed) 2 mg 1X ONCE IV Last administered on 04/19/17 16:45; Start 04/19/17 at 16:45; Stop 04/19/17 at 16:46; Status DC Sodium Chloride 1,000 ml @ 100 mls/hr Q10H IV Last administered on 04/21/17 03 :38; Start 04/19/17 at 18:15; Stop 04/21/17 at 11:35; Status DC Magnesium Sulfate/ Dextrose 50 ml @ 25 mls/hr 1X ONCE IV Last administered on 04/20/17 12:22; Start 04/20/17 at 11:45; Stop 04/20/17 at 13:44; Status DC Haloperidol Lactate (Haldol) 5 mg 1X ONCE IVP ; Start 04/20/17 at 22:00; Stop at 22:01; Status DC Lorazepam (Ativan) 1 mg PRN Q3HRS PRN IV ANXIETY / AGITATION Last administered on 04/23/17 21:46; Start 04/20/17 at 21:30 Potassium Chloride 50 ml @ 25 mls/hr Q2H IV Last administered on 04/21/17 15:07 ; Start 04/21/17 at 07:00; Stop 04/21/17 at 14:59; Status DC Pneumococcal Polyvalent Vaccine (Pneumovax 23) 0.5 ml ONCE ONCE VAX IM Last administered on 04/25/17 15:45; Start 04/22/17 at 09:00; Stop 04/22/17 at 09:01; Status DC Magnesium Sulfate/ Dextrose 100 ml @ 100 mls/hr 1X ONCE IV ; Start 04/21/17 at 13:00; Stop 04/21/17 at 13:59; Status Cancel Magnesium Sulfate/ Dextrose 100 ml @ 25 mls/hr 1X ONCE IV ; Start 04/21/17 at 13:00; Stop 04/21/17 at 16:59; Status Cancel Magnesium Sulfate/ Dextrose 50 ml @ 25 mls/hr 1X ONCE IV Last administered on 04/21/17 15:06; Start 04/21/17 at 13:00; Stop 04/21/17 at 14:59; Status DC Sodium Chloride 1,000 ml @ 100 mls/hr Q10H IV Last administered on 04/22/17 09 :36; Start 04/21/17 at 14:45; Stop 04/22/17 at 11:20; Status DC Midazolam HCl (Versed) 5 mg STK-MED ONCE .ROUTE ; Start 04/21/17 at 17:29; Stop 04/21/17 at 17:30; Status DC Midazolam HCl (Versed) 5 mg 1X ONCE IV Last administered on 04/21/17 19:15; Start 04/21/17 at 19:15; Stop 04/21/17 at 19:16; Status DC Amino Acids/ Glycerin/ Electrolytes 1,000 ml @ 75 mls/hr [id number] IV Last administered on 04/27/17 22:01; Start 04/22/17 at 11:30 Aspirin (Aspirin) 300 mg DAILY GA Last administered on 04/26/17 09:48; Start 04/23/17 at 09:00; Stop 04/27/17 at 12:33; Status DC Haloperidol Lactate (Haldol) 5 mg 1X ONCE IVP Last administered on 04/23/17 06 :46; Start 04/23/17 at 07:00; Stop 04/23/17 at 07:01; Status DC Furosemide (Lasix) 40 mg [id number] IVP Last administered on 04/24/17 08:50; Start 04/23/17 at 09:00; Stop 04/24/17 at 10:23; Status DC Haloperidol Lactate (Haldol) 5 mg PRN Q8HRS PRN IVP AGITATION Last administered on 04/23/17 21:46; Start 04/23/17 at 10:30 Potassium Chloride 100 ml @ 100 mls/hr Q1H IV Last administered on 04/24/17 14 :30; Start 04/24/17 at 09:30; Stop 04/24/17 at 13:29; Status DC Furosemide (Lasix) 20 mg DAILY IVP Last administered on 04/27/17 12:21; Start 04/25/17 at 09:00; Stop 04/27/17 at 12:33; Status DC Barium Sulfate (Varibar Thin Liquid Apple) 148 gm 1X ONCE PO Last administered on 04/25/17t 14:47; Start 04/25/17 at 14:30; Stop 04/25/17 at 14:31 ; Status DC Sodium Chloride (Normal Saline Flush) 3 ml QSHIFT PRN IV AFTER MEDS AND BLOOD DRAWS; Start 04/26/17 at 12:00 Cefazolin Sodium 1 gm/Sodium Chloride 50 ml @ 100 mls/hr 1X ONCE IV ; Start at 06:00; Stop 04/27/17 at 06:29; Status UNV Vancomycin HCl 250 ml @ 250 mls/hr 1X PREOP PRN IV PRIOR TO PROCEDURE; Start 04/26/17 at 06:00; Stop 04/27/17 at 05:59; Status DC Fentanyl Citrate (Fentanyl 2ml Vial) 25 mcg PRN Q5MIN PRN IV MILD PAIN; Start 04/27/17 at 07:00; Stop 04/28/17 at 06:59; Status DC Fentanyl Citrate (Fentanyl 2ml Vial) 50 mcg PRN Q5MIN PRN IV MODERATE PAIN; Start 04/27/17 at 07:00; Stop 04/28/17 at 06:59; Status DC Morphine Sulfate 1 mg PRN Q10MIN PRN IV SEVERE PAIN; Start 04/27/17 at 07:00; Stop 04/28/17 at 06:59; Status DC Ringer's Solution 1,000 ml @ 30 mls/hr Q24H IV Last administered on 04/27/17t 09:19; Start 04/27/17 at 07:00; Stop 04/27/17 at 18:59; Status DC Lidocaine HCl 2 ml PRN 1X PRN ID PRIOR TO IV START; Start 04/27/17 at 07:00; Stop 04/28/17 at 06:59; Status DC Hydromorphone HCl (Dilaudid) 0.5 mg PRN Q10MIN PRN IV SEV PAIN, Second choice; Start 04/27/17 at 07:00; Stop 04/28/17 at 06:59; Status DC Prochlorperazine Edisylate (Compazine) 5 mg PACU PRN PRN IV NAUSEA, MRX1; Start 04/27/17 at 07:00; Stop 04/28/17 at 06:59; Status DC Propofol 0 ml @ As Directed STK-MED ONCE IV ; Start 04/27/17 at 09:29; Stop 10/02 at 09:30; Status DC Propofol 20 ml @ As Directed STK-MED ONCE IV ; Start 04/27/17 at 09:29; Stop 10/02 at 09:30; Status DC Furosemide (Lasix) 20 mg DAILY PO ; Start 04/28/17 at 09:00 Clopidogrel Bisulfate (Plavix) 75 mg DAILYWBKFT PO Last administered on 10:21; Start 04/27/17 at 12:45 Aspirin (Ecotrin) 81 mg DAILYWBKFT PO Last administered on 04/28/17 10:21; Start 04/27/17 at 12:45 Active Scripts Active Reported [No home meds] Vitals/I & O Vital Sign - Last 24 Hours 04/27/17 04/27/17 04/27/17 04/27/17 15:00 19:20 19:35 23:00 Temp 98.1 97.9 98.0 98.1 97.9 98.0 Pulse 61 57 69 Resp 16 17 16 B/P (MAP) 116/60 (78) 113/59 (77) 110/58 (75) Pulse Ox 97 96 97 O2 Delivery Nasal Cannula Room Air Room Air Room Air O2 Flow Rate 2.0 04/28/17 04/28/17 04/28/17 03:10 07:00 11:00 Temp 98.2 98.1 98.8 98.2 98.1 98.8 Pulse 68 60 57 Resp 18 17 17 B/P (MAP) 115/68 (84) 97/56 (70) 106/58 (74) Pulse Ox 99 92 100 O2 Delivery Room Air Room Air Room Air Intake and Output 04/27/17 04/27/17 04/28/17 15:00 23:00 07:00 Intake Total 460 ml 240 ml 60 ml Output Total 200 ml 460 ml 425 ml Balance 260 ml -220 ml -365 ml ELADIO CHURCH MD Apr 28, 2017 13:37
[2017-04-28] MEDS ORDERED: ASPI-612 PO (14:54)
[2017-04-28] MEDS ORDERED: FURO20TA3 PO (14:54)
[2017-04-28] MEDS ORDERED: CLOP75TA PO (14:54)
--- NOTE | 2017-04-28 14:56 | PDOC3 ---
Discharge Summary [facility] Date of Admission: Apr 17, 2017 Discharge Date: Apr 28, 2017 Admitting Diagnosis 1. STEMI w/ Vfib, cardiac arrest: successfully coded 04/17. 2. Acute respir failure: intubated at code; extubated on 04/20. no persistent issues 3. Cardiogenic shock 3. Hyp/anoxic encephalopathy: minimal neurol deficits; OT/PT/ST following 4. Hypokalemia: resolved. monitor, replete as indicated 5. Dysphagia: NPO 6. Leukocytosis: reactive, stable. monitor 7. Anemia: macrocytic. prob 11/18 EtOH. obtain anemia profile to r/o vitamin deficiency 8. Dispo: to rehab post PEG/start of tube feeds Problems: Final Diagnosis CONSULTS card pulm neuro gi Brief Hospital Course 71yo M, who was sent by EMS post cardiac arrest. pt is currently intubated in ER, all history comes from ERP. as per ERP dr. Thacker, Patient was found by family at home to be unresponsive after he had just come in to the house from outside complained that he was not feeling well. The patient was attended to by his . Patient was a witnessed arrest at home and EMS was called immediately. attempted CPR prior to EMS arrival. They arrived within approximately 5 minutes to find that the patient was unresponsive. The patient was found to be in V. fib upon their arrival. The patient was shocked out of V. fib at least twice prior to arrival. EMS was able to get spontaneous pulses back in route. total code time was about 15mins as per ERP. Upon arrival the patient remains in a coma at this time. Per order prior to arrival, patient given 100 mg of lidocaine by IV. Patient has received no other medications prior to arrival. Patient unresponsive and unable to give any history. Patient has no known medical history and does not follow with a physician. 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 pt extubated 3 days later, however, developed dysphagia, got PEG on 04/27. pt feels good now, no complain, PEG started feeding. dc to SNF. dc time 35min , fu with CT in 2 weeks, plan for CABG. General: Alert, Cooperative Heart: Normal S1, Normal S2 Lungs: Clear Abdomen: Normal bowel sounds, Soft Extremities: No edema Skin: No rashes, Other (mult bruises over UEs) Problems: Disposition snf CONDITION AT DISCHARGE: Improved Diet cardiac Scheduled Aspirin (Aspirin Ec), 81 MG PO DAILYWBKFT Clopidogrel Bisulfate (Clopidogrel), 75 MG PO DAILYWBKFT Furosemide (Furosemide), 20 MG PO DAILY Discontinued Medications [No home meds], (Reported) Follow Up CT in 2 weeks ROYER CAT MD Apr 28, 2017 14:55
[2017-04-28 15:10] VITALS: BP 118/57
== END 2017-04-28 20:00 | DRG 270 ==
LOC: ER 18:50 → 1 WEST ICU 19:08 → 2 NORTH 04-23 11:30
PROVIDERS: ADMIT Internal Medicine; ATTEND Internal Medicine
PROC: 5A02210 Assistance with Cardiac Output using Balloon Pump, Continuous (ICD-10-PCS; 2017-04-17)
PROC: B2111ZZ Fluoroscopy of Multiple Coronary Arteries using Low Osmolar Contrast (ICD-10-PCS; 2017-04-17)
PROC: B2151ZZ Fluoroscopy of Left Heart using Low Osmolar Contrast (ICD-10-PCS; 2017-04-17)
PROC: 4A023N7 Measurement of Cardiac Sampling and Pressure, Left Heart, Percutaneous Approach (ICD-10-PCS; 2017-04-17)
PROC: B3101ZZ Fluoroscopy of Thoracic Aorta using Low Osmolar Contrast (ICD-10-PCS; 2017-04-17)
PROC: B4101ZZ Fluoroscopy of Abdominal Aorta using Low Osmolar Contrast (ICD-10-PCS; 2017-04-17)
PROC: 5A1945Z Respiratory Ventilation, 24-96 Consecutive Hours (ICD-10-PCS; 2017-04-17)
PROC: 0BH17EZ Insertion of Endotracheal Airway into Trachea, Via Natural or Artificial Opening (ICD-10-PCS; 2017-04-17)
PROC: 5A12012 Performance of Cardiac Output, Single, Manual (ICD-10-PCS; principal; 2017-04-19)
PROC: 0DH63UZ Insertion of Feeding Device into Stomach, Percutaneous Approach (ICD-10-PCS; 2017-04-27)
DX: I21.19 ST elevation (STEMI) myocardial infarction involving other coronary artery of inferior wall (principal); G93.41 Metabolic encephalopathy; I46.9 Cardiac arrest, cause unspecified; I49.01 Ventricular fibrillation; J81.0 Acute pulmonary edema; J96.00 Acute respiratory failure, unspecified whether with hypoxia or hypercapnia; G93.1 Anoxic brain damage, not elsewhere classified; D53.9 Nutritional anemia, unspecified; D72.829 Elevated white blood cell count, unspecified; E87.6 Hypokalemia; F17.210 Nicotine dependence, cigarettes, uncomplicated; I10 Essential (primary) hypertension; I25.10 Atherosclerotic heart disease of native coronary artery without angina pectoris; R33.9 Retention of urine, unspecified; Z88.0 Allergy status to penicillin; Z51.5 Encounter for palliative care; F19.10 Other psychoactive substance abuse, uncomplicated; R13.10 Dysphagia, unspecified
CPT/HCPCS: 31500; 33967; 33968; 36415; 36600; 51702; 70450; 71010; 74230; 80047; 80048; 80061; 80076; 81001; 82150; 82310; 82553; 82805; 82962; 83605; 83690; 83735; 83880; 84100; 84132; 84484; 85007; 85027; 85347; 85520; 85610; 85730; 86850; 86900; 86901; 87040; 87641; 90732; 93005; 93306; 93308; 93454; 94002; 94003; 96374; 96375; C1769; C1771; C1887; C1892; G0269; J0171; J0282; J0330; J0610; J1265; J1630; J1644; J1940; J2001; J2060; J2175; J2250; J2704; J3010; J3475; J3480; J7030; J7060; J7120; S0028; 92526; 92610; 92611; 97110; 97112; 97116; 97530; 97535; 99291-25